=== PATIENT | male | born 1940 | race Caucasian/White ===

== ENCOUNTER 2019-01-11 06:07 | Outpatient (RCR) | payer OTHER, SELFPAY | END 2019-02-09 00:01 | LOC: ONCMED 06:07 | PROVIDERS: Family Provider Nurse Practitioner; Visit Provider Internal Medicine Medical Oncology | DX: C7A.8 Other malignant neuroendocrine tumors (principal); E16.4 Increased secretion of gastrin; E53.8 Deficiency of other specified B group vitamins; E66.9 Obesity, unspecified; E11.22 Type 2 diabetes mellitus with diabetic chronic kidney disease; I12.9 Hypertensive chronic kidney disease with stage 1 through stage 4 chronic kidney disease, or unspecified chronic kidney disease; N18.9 Chronic kidney disease, unspecified; E78.5 Hyperlipidemia, unspecified; I25.10 Atherosclerotic heart disease of native coronary artery without angina pectoris; K21.9 Gastro-esophageal reflux disease without esophagitis; M19.90 Unspecified osteoarthritis, unspecified site; D50.9 Iron deficiency anemia, unspecified; Z85.46 Personal history of malignant neoplasm of prostate; Z90.79 Acquired absence of other genital organ(s); Z79.4 Long term (current) use of insulin | CPT/HCPCS: 96372; 99214; J2353 ==

== ENCOUNTER 2019-02-11 06:25 | Outpatient (RCR) | payer OTHER, SELFPAY ==
[2019-02-11] MEDS: octreotide LAR depot 20 mg Kit 40 MG IM (14:30)
[2019-02-11 15:05] LABS: Anion Gap 16.5 (5-19); Blood Urea Nitrogen 39 mg/dL (8-23); Calcium 9.2 mg/Dl (8.8-10.2); Carbon Dioxide 25 mmol/L (22-29); Chloride 101 mmol/L (98-107); Glucose 168 mg/dL (74-106); Potassium 4.5 mmol/L (3.5-5.1); Sodium 138 mmol/L (136-145)
[2019-02-11 15:52] LABS: Urine Creatinine 62 mg/dL (39-259)
[2019-02-11 16:11] LABS: Microalbumin Random Urine 112 ug/dL (0-20)
[2019-02-11 23:22] LABS: Microalbum Creatinine Ratio Ur 2 mg/dL (0-20)
== END 2019-03-12 23:59 | disposition home or self-care (01) ==
LOC: ONCMED 06:25
PROVIDERS: Nurse Practitioner Family; Family Provider Nurse Practitioner; PCP Nurse Practitioner; Visit Provider Internal Medicine Medical Oncology
DX: C7A.8 Other malignant neuroendocrine tumors (principal)
CPT/HCPCS: 80048; 82044; 96372; J2353

== ENCOUNTER 2019-03-12 15:15 | Inpatient (IN) | payer OTHER, SELFPAY ==
[2019-03-12 15:17] VITALS: BP 178/105; PULSE 80; RESP 22; TEMP 36.7; O2SAT 97
--- NOTE | 2019-03-12 15:28 | ED_ITS ---
Entered by Arin Singer, acting as scribe for Documented by User: Michel Lutz MD 03/12/19 17:50 HPI - Altered Mental Status General: Chief Complaint: Neuro Symptoms/Deficit Stated Complaint: CONFUSION Time Seen by Provider: 03/12/19 15:28 Source: patient and EMS Mode of arrival: EMS Limitations: altered mental status History of Present Illness: HPI narrative: per ems pt called [facility] and stated he could not find his words at 10 am, pt is unaware of exact time. MD complaint: altered mental status and confusion Onset (ago): day(s) (today unsure time) Severity: mild Consistency of symptoms: Unknown Context: unknown Associated symptoms: Reports no associated symptoms Review of Systems General: Reports: ROS unobtainable due to mental status Const: Denies: fever GI: Denies: nausea, vomiting or diarrhea Neuro: Reports: confusion PFSH ED PFSH: Statuses (acute, chronic, etc) shown below reflect problem list status as previously entered and may not be historically accurate Social History Smoking and tobacco status: never smoked Caregiver/support person: Yes (Daughter) Household members: caregiver Housing: House Marital status: Single Physical Exam Const: COMMON NORMALS: no apparent distress; negative for oriented x3 EXAM LIMITATIONS: altered mental status HENMT: COMMON NORMALS: normocephalic and head/scalp atraumatic HEAD & SCALP: normocephalic and atraumatic Eye: COMMON NORMALS: PERRL and EOMs intact bilaterally PUPIL: Yes PERRL Lymph: LYMPHATIC: no lymphadenopathy noted Chest: COMMONS NORMALS: inspection of chest normal and palpation of chest normal Resp: COMMON NORMALS: normal respiratory effort, no retractions, no use of accessory muscles and clear to auscultation bilaterally AUSCULTATION: clear to auscultation bilaterally Cardio: COMMON NORMALS: regular rate, regular rhythm and no murmurs RATE: regular rate RHYTHM: regular rhythm GI: COMMON NORMALS: normal to inspection, nondistended, normoactive bowel sounds, soft to palpation, non-tender and no hepatosplenomegaly PALPATION: Yes soft and Yes no hepatosplenomegaly Extremity: COMMON NORMALS: normal to inspection and normal capillary refill Neuro: COMMON NORMALS: negative for oriented x3 OTHER: Patient knows his name but is confused to place and time patient is quite confused. Unable to answer any questions. Course Vital Signs: Vital signs: Vital Signs Temperature 97.9 F 03/13/19 00:54 Pulse Rate 88 03/13/19 00:54 Respiratory Rate 19 H 03/13/19 00:54 Blood Pressure 148/84 03/13/19 00:54 Pulse Oximetry 94 03/13/19 00:54 MDM - Altered Mental Status MDM Narrative: Medical decision making narrative: Patient presents with altered neural status and is quite confused. Patient is pending a urinary analysis along with 3 her troponin. Patient's care turned over to Dr. Bailey at this time. Lab Data: Labs: Lab Results 03/12/19 03/12/19 03/12/19 Range/Units 15:52 16:05 16:05 WBC 7.3 (4.0-10.0) 10^3/ uL RBC 3.42 L (4.1-5.3) 10^6/u L Hgb 10.1 L (11.7-16.6) g/dL Hct 32.6 L (42.0-52.0) % MCV 95.3 H (80-94) fL MCH 29.5 (28.0-34.0) pg MCHC 31.0 (30.0-36.0) g/dL RDW 12.2 (12.1-15.1) % Plt Count 229 (130-400) 10^3/c mm MPV 11.1 H (7.4-10.4) fL Neut % (Auto) 76.7 % Lymph % (Auto) 14.6 % [place] % (Auto) 5.0 % Eos % (Auto) 2.7 % Baso % (Auto) 0.7 % Neut # (Auto) 5.6 (1.8-7.7) 10^3/u L Lymph # (Auto) 1.1 (0.8-4.8) 10^3/u L [place] # (Auto) 0.4 (0.2-0.9) 10^3/u L Eos # (Auto) 0.2 (0.0-0.8) 10^3/u L Baso # (Auto) 0.1 (0.0-0.1) 10^3/u L Nucleated RBC % (a uto) 0 % Nucleated RBCs # 0.0 /100WBC PT 14.10 H (10.5-13.3) SECO NDS INR 1.05 (0.8-1.2) Specimen Type Arterial Sample Site Radial, left ABG pH 7.38 (7.35-7.45) ABG pCO2 43.8 (35-45) mmHg ABG pO2 76.9 L (80.0-100.0) mmH g ABG HCO3 25.8 (22-26) mmol/L ABG Base Excess 0.4 (-2.0-2.0) mmol/ L Vijay Test Pos Hematocrit 31.8 L (42-52) % O2 Delivery Device Nc FiO2 28.0 % Client Finance Analyst ID amh Sodium (136-145) mmol/L Potassium (3.5-5.1) mmol/L Chloride (98-107) mmol/L Carbon Dioxide (22-29) mmol/L Anion Gap (5-19) BUN (8-23) mg/dL Creatinine (0.7-1.2) mg/dL Glucose (74-106) mg/dL Estimat Average Gl ucose Hemoglobin A1c (4.0-6.0) % Calcium (8.5-10.5) mg/dL Magnesium (1.7-2.3) mg/dL Total Bilirubin (0.15-1.2) mg/dL AST (0-40) U/L ALT (0-41) U/L Alkaline Phosphata se (40-130) IU/L Ammonia (16-60) umol/L Troponin T Baselin e (0-15) ng/mL Troponin T 120 Min [place] (0-15) ng/mL Delta Troponin T (0-10) ABS# Total Protein (6.6-8.7) g/dL Albumin (3.5-5.2) g/dL Globulin (1.3-4.6) g/dL TSH (0.27-4.20) uIU/ mL Urine Color (Yellow) Urine Appearance (CLEAR) Urine pH (5-7) Ur Specific Gravit y (1.005-1.030) Urine Protein (Negative) Urine Glucose (UA) (Normal) Urine Ketones (Negative) Urine Occult Blood (Negative) Urine Nitrate (Negative) Urine Bilirubin (NEGATIVE) Urine Urobilinogen (Negative) mg/dL Ur Leukocyte Sarah ase (Negative) Urine RBC (0-2) /hpf Urine WBC (0-5) /hpf Ur Squamous Epith Cells (0-5) Urine Bacteria (NONE) Urine Mucus Ethyl Alcohol (0-10) mg/dL 03/12/19 03/12/19 03/12/19 Range/Units 16:05 16:05 16:05 WBC (4.0-10.0) 10^3/ uL RBC (4.1-5.3) 10^6/u L Hgb (11.7-16.6) g/dL Hct (42.0-52.0) % MCV (80-94) fL MCH (28.0-34.0) pg MCHC (30.0-36.0) g/dL RDW (12.1-15.1) % Plt Count (130-400) 10^3/c mm MPV (7.4-10.4) fL Neut % (Auto) % Lymph % (Auto) % [place] % (Auto) % Eos % (Auto) % Baso % (Auto) % Neut # (Auto) (1.8-7.7) 10^3/u L Lymph # (Auto) (0.8-4.8) 10^3/u L [place] # (Auto) (0.2-0.9) 10^3/u L Eos # (Auto) (0.0-0.8) 10^3/u L Baso # (Auto) (0.0-0.1) 10^3/u L Nucleated RBC % (a uto) % Nucleated RBCs # /100WBC PT (10.5-13.3) SECO NDS INR (0.8-1.2) Specimen Type Sample Site ABG pH (7.35-7.45) ABG pCO2 (35-45) mmHg ABG pO2 (80.0-100.0) mmH g ABG HCO3 (22-26) mmol/L ABG Base Excess (-2.0-2.0) mmol/ L Vijay Test Hematocrit (42-52) % O2 Delivery Device FiO2 % Client Finance Analyst ID Sodium 134 L (136-145) mmol/L Potassium 4.7 (3.5-5.1) mmol/L Chloride 97 L (98-107) mmol/L Carbon Dioxide 24 (22-29) mmol/L Anion Gap 17.7 (5-19) BUN 33 H (8-23) mg/dL Creatinine 2.5 H (0.7-1.2) mg/dL Glucose 334 H (74-106) mg/dL Estimat Average Gl ucose Hemoglobin A1c (4.0-6.0) % Calcium 9.2 (8.5-10.5) mg/dL Magnesium 1.9 (1.7-2.3) mg/dL Total Bilirubin 0.2 (0.15-1.2) mg/dL AST 13 (0-40) U/L ALT 8 (0-41) U/L Alkaline Phosphata se 83 (40-130) IU/L Ammonia 15 L (16-60) umol/L Troponin T Baselin e 46 H (0-15) ng/mL Troponin T 120 Min [place] (0-15) ng/mL Delta Troponin T (0-10) ABS# Total Protein 7.4 (6.6-8.7) g/dL Albumin 3.7 (3.5-5.2) g/dL Globulin 3.7 (1.3-4.6) g/dL TSH (0.27-4.20) uIU/ mL Urine Color (Yellow) Urine Appearance (CLEAR) Urine pH (5-7) Ur Specific Gravit y (1.005-1.030) Urine Protein (Negative) Urine Glucose (UA) (Normal) Urine Ketones (Negative) Urine Occult Blood (Negative) Urine Nitrate (Negative) Urine Bilirubin (NEGATIVE) Urine Urobilinogen (Negative) mg/dL Ur Leukocyte Sarah ase (Negative) Urine RBC (0-2) /hpf Urine WBC (0-5) /hpf Ur Squamous Epith Cells (0-5) Urine Bacteria (NONE) Urine Mucus Ethyl Alcohol < 10 (0-10) mg/dL 03/12/19 03/12/19 03/12/19 Range/Units 16:05 18:07 18:07 WBC (4.0-10.0) 10^3/ uL RBC (4.1-5.3) 10^6/u L Hgb (11.7-16.6) g/dL Hct (42.0-52.0) % MCV (80-94) fL MCH (28.0-34.0) pg MCHC (30.0-36.0) g/dL RDW (12.1-15.1) % Plt Count (130-400) 10^3/c mm MPV (7.4-10.4) fL Neut % (Auto) % Lymph % (Auto) % [place] % (Auto) % Eos % (Auto) % Baso % (Auto) % Neut # (Auto) (1.8-7.7) 10^3/u L Lymph # (Auto) (0.8-4.8) 10^3/u L [place] # (Auto) (0.2-0.9) 10^3/u L Eos # (Auto) (0.0-0.8) 10^3/u L Baso # (Auto) (0.0-0.1) 10^3/u L Nucleated RBC % (a uto) % Nucleated RBCs # /100WBC PT (10.5-13.3) SECO NDS INR (0.8-1.2) Specimen Type Sample Site ABG pH (7.35-7.45) ABG pCO2 (35-45) mmHg ABG pO2 (80.0-100.0) mmH g ABG HCO3 (22-26) mmol/L ABG Base Excess (-2.0-2.0) mmol/ L Vijay Test Hematocrit (42-52) % O2 Delivery Device FiO2 % Client Finance Analyst ID Sodium (136-145) mmol/L Potassium (3.5-5.1) mmol/L Chloride (98-107) mmol/L Carbon Dioxide (22-29) mmol/L Anion Gap (5-19) BUN (8-23) mg/dL Creatinine (0.7-1.2) mg/dL Glucose (74-106) mg/dL Estimat Average Gl ucose 217 Hemoglobin A1c 9.2 H (4.0-6.0) % Calcium (8.5-10.5) mg/dL Magnesium (1.7-2.3) mg/dL Total Bilirubin (0.15-1.2) mg/dL AST (0-40) U/L ALT (0-41) U/L Alkaline Phosphata se (40-130) IU/L Ammonia (16-60) umol/L Troponin T Baselin e (0-15) ng/mL Troponin T 120 [address] [place] 39.60 H (0-15) ng/mL Delta Troponin T -6.40 L (0-10) ABS# Total Protein (6.6-8.7) g/dL Albumin (3.5-5.2) g/dL Globulin (1.3-4.6) g/dL TSH 2.15 (0.27-4.20) uIU/ mL Urine Color (Yellow) Urine Appearance (CLEAR) Urine pH (5-7) Ur Specific Gravit y (1.005-1.030) Urine Protein (Negative) Urine Glucose (UA) (Normal) Urine Ketones (Negative) Urine Occult Blood (Negative) Urine Nitrate (Negative) Urine Bilirubin (NEGATIVE) Urine Urobilinogen (Negative) mg/dL Ur Leukocyte Sarah ase (Negative) Urine RBC (0-2) /hpf Urine WBC (0-5) /hpf Ur Squamous Epith Cells (0-5) Urine Bacteria (NONE) Urine Mucus Ethyl Alcohol (0-10) mg/dL 03/12/19 Range/Units 18:57 WBC (4.0-10.0) 10^3/ uL RBC (4.1-5.3) 10^6/u L Hgb (11.7-16.6) g/dL Hct (42.0-52.0) % MCV (80-94) fL MCH (28.0-34.0) pg MCHC (30.0-36.0) g/dL RDW (12.1-15.1) % Plt Count (130-400) 10^3/c mm MPV (7.4-10.4) fL Neut % (Auto) % Lymph % (Auto) % [place] % (Auto) % Eos % (Auto) % Baso % (Auto) % Neut # (Auto) (1.8-7.7) 10^3/u L Lymph # (Auto) (0.8-4.8) 10^3/u L [place] # (Auto) (0.2-0.9) 10^3/u L Eos # (Auto) (0.0-0.8) 10^3/u L Baso # (Auto) (0.0-0.1) 10^3/u L Nucleated RBC % (a uto) % Nucleated RBCs # /100WBC PT (10.5-13.3) SECO NDS INR (0.8-1.2) Specimen Type Sample Site ABG pH (7.35-7.45) ABG pCO2 (35-45) mmHg ABG pO2 (80.0-100.0) mmH g ABG HCO3 (22-26) mmol/L ABG Base Excess (-2.0-2.0) mmol/ L Vijay Test Hematocrit (42-52) % O2 Delivery Device FiO2 % Client Finance Analyst ID Sodium (136-145) mmol/L Potassium (3.5-5.1) mmol/L Chloride (98-107) mmol/L Carbon Dioxide (22-29) mmol/L Anion Gap (5-19) BUN (8-23) mg/dL Creatinine (0.7-1.2) mg/dL Glucose (74-106) mg/dL Estimat Average Gl ucose Hemoglobin A1c (4.0-6.0) % Calcium (8.5-10.5) mg/dL Magnesium (1.7-2.3) mg/dL Total Bilirubin (0.15-1.2) mg/dL AST (0-40) U/L ALT (0-41) U/L Alkaline Phosphata se (40-130) IU/L Ammonia (16-60) umol/L Troponin T Baselin e (0-15) ng/mL Troponin T 120 [address] [place] (0-15) ng/mL Delta Troponin T (0-10) ABS# Total Protein (6.6-8.7) g/dL Albumin (3.5-5.2) g/dL Globulin (1.3-4.6) g/dL TSH (0.27-4.20) uIU/ mL Urine Color Yellow (Yellow) Urine Appearance Clear (CLEAR) Urine pH 6 (5-7) Ur Specific Gravit y 1.015 (1.005-1.030) Urine Protein 3+ H (Negative) Urine Glucose (UA) 4+ H (Normal) Urine Ketones Negative (Negative) Urine Occult Blood 2+ H (Negative) Urine Nitrate Negative (Negative) Urine Bilirubin Neg (NEGATIVE) Urine Urobilinogen Norm (Negative) mg/dL Ur Leukocyte Sarah ase Negative (Negative) Urine RBC 0-4 H (0-2) /hpf Urine WBC 0-4 H (0-5) /hpf Ur Squamous Epith Cells Rare (0-5) Urine Bacteria Trace (NONE) Urine Mucus Trace Ethyl Alcohol (0-10) mg/dL Imaging Data^: CXR: Radiologist's impression: Patient: Marco Antonio Valadez Unit #: [id number] : 1940 Age/Sex: 79 / M ADM Date: 03/12/19 Loc: ER Room/Bed: Attending Dr: Ordering Provider/Ordering MD: Michel Lutz MD Date of Service: 03/12/19 Procedure(s): XR chest 1V portable [id number] Accession Number(s): [id number] Report Number: [id number] WS: [id number] Portable AP upright chest, 03/12/2019 Clinical Data: cough Comparison: Portable chest, 11/30/2018. Findings: No nodules, masses or effusions are seen. The heart is enlarged. The pulmonary vascularity is not increased. No pneumonia or pneumothorax is seen. Bibasilar linear atelectasis is seen. The aortic arch and descending aorta show calcification of tortuosity. There is a dextroscoliosis. XR/XR chest 1V portable [id number] Impression: Atherosclerosis and cardiomegaly EKG Data^: EKG 1: Attestation: I personally reviewed and interpreted this EKG as follows: EKG interpretation date: 03/12/19 EKG interpretation time: 15:46 Interpretation: Normal sinus rhythm heart rate [address] or T wave abnormalities QRS 119 QTc 424 EKG 2: Attestation: I personally reviewed and interpreted this EKG as follows: EKG interpretation date: 03/12/19 EKG interpretation time: 17:03 Interpretation: nsr hr [address] or t wave abnormalities qrs 120 qtc 419 Discharge Plan Discharge Patient Disposition: Admitted As Inpatient Admit Provider: Mehnaz Morton Clinical Impression: Altered mental status Qualifiers: Altered mental status type: unspecified Qualified Code(s): R41.82 - Altered mental status, unspecified Condition: Stable Referrals: Leslie Villalta FNP [Primary Care Provider] - Discharge Date/Time: 03/13/19 00:40 Coding Level of Care Code ED Seam Rubber for Chg Fwd Exam Problem Focused Documented by User: Jung Bailey DO 03/13/19 02:09 HPI - Altered Mental Status General: Chief Complaint: Neuro Symptoms/Deficit Stated Complaint: CONFUSION Time Seen by Provider: 03/12/19 15:28 PFSH ED PFSH: Statuses (acute, chronic, etc) shown below reflect problem list status as previously entered and may not be historically accurate Social History Smoking and tobacco status: never smoked Caregiver/support person: Yes (Daughter) Household members: caregiver Housing: House Marital status: Single Course ED course: 79-year-old male checked out to me by Dr. Lutz. He presents with acute mental status changes. Evidently he was slurring his speech at home, and dropping things. The symptoms are mostly resolved at this point, although he still significantly confused. He does answer simple questions accurately. His serum work-up is essentially benign. His head CT is negative. His urinalysis is negative. I wonder if he had a hypoxic episode at home that led to his confusion and slurring of his words. He supposed to wear oxygen, but has not had access to it recently. He will be observed for mental status change for further work-up. I spoke with his daughter. Vital Signs: Vital signs: Vital Signs Temperature 97.9 F 03/13/19 00:54 Pulse Rate 88 03/13/19 00:54 Respiratory Rate 19 H 03/13/19 00:54 Blood Pressure 148/84 03/13/19 00:54 Pulse Oximetry 94 03/13/19 00:54 MDM - Altered Mental Status Lab Data: Labs: Lab Results 03/12/19 03/12/19 03/12/19 Range/Units 15:52 16:05 16:05 WBC 7.3 (4.0-10.0) 10^3/ uL RBC 3.42 L (4.1-5.3) 10^6/u L Hgb 10.1 L (11.7-16.6) g/dL Hct 32.6 L (42.0-52.0) % MCV 95.3 H (80-94) fL MCH 29.5 (28.0-34.0) pg MCHC 31.0 (30.0-36.0) g/dL RDW 12.2 (12.1-15.1) % Plt Count 229 (130-400) 10^3/c mm MPV 11.1 H (7.4-10.4) fL Neut % (Auto) 76.7 % Lymph % (Auto) 14.6 % [place] % (Auto) 5.0 % Eos % (Auto) 2.7 % Baso % (Auto) 0.7 % Neut # (Auto) 5.6 (1.8-7.7) 10^3/u L Lymph # (Auto) 1.1 (0.8-4.8) 10^3/u L [place] # (Auto) 0.4 (0.2-0.9) 10^3/u L Eos # (Auto) 0.2 (0.0-0.8) 10^3/u L Baso # (Auto) 0.1 (0.0-0.1) 10^3/u L Nucleated RBC % (a uto) 0 % Nucleated RBCs # 0.0 /100WBC PT 14.10 H (10.5-13.3) SECO NDS INR 1.05 (0.8-1.2) Specimen Type Arterial Sample Site Radial, left ABG pH 7.38 (7.35-7.45) ABG pCO2 43.8 (35-45) mmHg ABG pO2 76.9 L (80.0-100.0) mmH g ABG HCO3 25.8 (22-26) mmol/L ABG Base Excess 0.4 (-2.0-2.0) mmol/ L Vijay Test Pos Hematocrit 31.8 L (42-52) % O2 Delivery Device Nc FiO2 28.0 % Client Finance Analyst ID amh Sodium (136-145) mmol/L Potassium (3.5-5.1) mmol/L Chloride (98-107) mmol/L Carbon Dioxide (22-29) mmol/L Anion Gap (5-19) BUN (8-23) mg/dL Creatinine (0.7-1.2) mg/dL Glucose (74-106) mg/dL Estimat Average Gl ucose Hemoglobin A1c (4.0-6.0) % Calcium (8.5-10.5) mg/dL Magnesium (1.7-2.3) mg/dL Total Bilirubin (0.15-1.2) mg/dL AST (0-40) U/L ALT (0-41) U/L Alkaline Phosphata se (40-130) IU/L Ammonia (16-60) umol/L Troponin T Baselin e (0-15) ng/mL Troponin T 120 [address] [place] (0-15) ng/mL Delta Troponin T (0-10) ABS# Total Protein (6.6-8.7) g/dL Albumin (3.5-5.2) g/dL Globulin (1.3-4.6) g/dL TSH (0.27-4.20) uIU/ mL Urine Color (Yellow) Urine Appearance (CLEAR) Urine pH (5-7) Ur Specific Gravit y (1.005-1.030) Urine Protein (Negative) Urine Glucose (UA) (Normal) Urine Ketones (Negative) Urine Occult Blood (Negative) Urine Nitrate (Negative) Urine Bilirubin (NEGATIVE) Urine Urobilinogen (Negative) mg/dL Ur Leukocyte Sarah ase (Negative) Urine RBC (0-2) /hpf Urine WBC (0-5) /hpf Ur Squamous Epith Cells (0-5) Urine Bacteria (NONE) Urine Mucus Ethyl Alcohol (0-10) mg/dL 03/12/19 03/12/19 03/12/19 Range/Units 16:05 16:05 16:05 WBC (4.0-10.0) 10^3/ uL RBC (4.1-5.3) 10^6/u L Hgb (11.7-16.6) g/dL Hct (42.0-52.0) % MCV (80-94) fL MCH (28.0-34.0) pg MCHC (30.0-36.0) g/dL RDW (12.1-15.1) % Plt Count (130-400) 10^3/c mm MPV (7.4-10.4) fL Neut % (Auto) % Lymph % (Auto) % [place] % (Auto) % Eos % (Auto) % Baso % (Auto) % Neut # (Auto) (1.8-7.7) 10^3/u L Lymph # (Auto) (0.8-4.8) 10^3/u L [place] # (Auto) (0.2-0.9) 10^3/u L Eos # (Auto) (0.0-0.8) 10^3/u L Baso # (Auto) (0.0-0.1) 10^3/u L Nucleated RBC % (a uto) % Nucleated RBCs # /100WBC PT (10.5-13.3) SECO NDS INR (0.8-1.2) Specimen Type Sample Site ABG pH (7.35-7.45) ABG pCO2 (35-45) mmHg ABG pO2 (80.0-100.0) mmH g ABG HCO3 (22-26) mmol/L ABG Base Excess (-2.0-2.0) mmol/ L Vijay Test Hematocrit (42-52) % O2 Delivery Device FiO2 % Client Finance Analyst ID Sodium 134 L (136-145) mmol/L Potassium 4.7 (3.5-5.1) mmol/L Chloride 97 L (98-107) mmol/L Carbon Dioxide 24 (22-29) mmol/L Anion Gap 17.7 (5-19) BUN 33 H (8-23) mg/dL Creatinine 2.5 H (0.7-1.2) mg/dL Glucose 334 H (74-106) mg/dL Estimat Average Gl ucose Hemoglobin A1c (4.0-6.0) % Calcium 9.2 (8.5-10.5) mg/dL Magnesium 1.9 (1.7-2.3) mg/dL Total Bilirubin 0.2 (0.15-1.2) mg/dL AST 13 (0-40) U/L ALT 8 (0-41) U/L Alkaline Phosphata se 83 (40-130) IU/L Ammonia 15 L (16-60) umol/L Troponin T Baselin e 46 H (0-15) ng/mL Troponin T 120 Min [place] (0-15) ng/mL Delta Troponin T (0-10) ABS# Total Protein 7.4 (6.6-8.7) g/dL Albumin 3.7 (3.5-5.2) g/dL Globulin 3.7 (1.3-4.6) g/dL TSH (0.27-4.20) uIU/ mL Urine Color (Yellow) Urine Appearance (CLEAR) Urine pH (5-7) Ur Specific Gravit y (1.005-1.030) Urine Protein (Negative) Urine Glucose (UA) (Normal) Urine Ketones (Negative) Urine Occult Blood (Negative) Urine Nitrate (Negative) Urine Bilirubin (NEGATIVE) Urine Urobilinogen (Negative) mg/dL Ur Leukocyte Sarah ase (Negative) Urine RBC (0-2) /hpf Urine WBC (0-5) /hpf Ur Squamous Epith Cells (0-5) Urine Bacteria (NONE) Urine Mucus Ethyl Alcohol < 10 (0-10) mg/dL 03/12/19 03/12/19 03/12/19 Range/Units 16:05 18:07 18:07 WBC (4.0-10.0) 10^3/ uL RBC (4.1-5.3) 10^6/u L Hgb (11.7-16.6) g/dL Hct (42.0-52.0) % MCV (80-94) fL MCH (28.0-34.0) pg MCHC (30.0-36.0) g/dL RDW (12.1-15.1) % Plt Count (130-400) 10^3/c mm MPV (7.4-10.4) fL Neut % (Auto) % Lymph % (Auto) % [place] % (Auto) % Eos % (Auto) % Baso % (Auto) % Neut # (Auto) (1.8-7.7) 10^3/u L Lymph # (Auto) (0.8-4.8) 10^3/u L [place] # (Auto) (0.2-0.9) 10^3/u L Eos # (Auto) (0.0-0.8) 10^3/u L Baso # (Auto) (0.0-0.1) 10^3/u L Nucleated RBC % (a uto) % Nucleated RBCs # /100WBC PT (10.5-13.3) SECO NDS INR (0.8-1.2) Specimen Type Sample Site ABG pH (7.35-7.45) ABG pCO2 (35-45) mmHg ABG pO2 (80.0-100.0) mmH g ABG HCO3 (22-26) mmol/L ABG Base Excess (-2.0-2.0) mmol/ L Vijay Test Hematocrit (42-52) % O2 Delivery Device FiO2 % Client Finance Analyst ID Sodium (136-145) mmol/L Potassium (3.5-5.1) mmol/L Chloride (98-107) mmol/L Carbon Dioxide (22-29) mmol/L Anion Gap (5-19) BUN (8-23) mg/dL Creatinine (0.7-1.2) mg/dL Glucose (74-106) mg/dL Estimat Average Gl ucose 217 Hemoglobin A1c 9.2 H (4.0-6.0) % Calcium (8.5-10.5) mg/dL Magnesium (1.7-2.3) mg/dL Total Bilirubin (0.15-1.2) mg/dL AST (0-40) U/L ALT (0-41) U/L Alkaline Phosphata se (40-130) IU/L Ammonia (16-60) umol/L Troponin T Baselin e (0-15) ng/mL Troponin T 120 [address] [place] 39.60 H (0-15) ng/mL Delta Troponin T -6.40 L (0-10) ABS# Total Protein (6.6-8.7) g/dL Albumin (3.5-5.2) g/dL Globulin (1.3-4.6) g/dL TSH 2.15 (0.27-4.20) uIU/ mL Urine Color (Yellow) Urine Appearance (CLEAR) Urine pH (5-7) Ur Specific Gravit y (1.005-1.030) Urine Protein (Negative) Urine Glucose (UA) (Normal) Urine Ketones (Negative) Urine Occult Blood (Negative) Urine Nitrate (Negative) Urine Bilirubin (NEGATIVE) Urine Urobilinogen (Negative) mg/dL Ur Leukocyte Sarah ase (Negative) Urine RBC (0-2) /hpf Urine WBC (0-5) /hpf Ur Squamous Epith Cells (0-5) Urine Bacteria (NONE) Urine Mucus Ethyl Alcohol (0-10) mg/dL 03/12/19 Range/Units 18:57 WBC (4.0-10.0) 10^3/ uL RBC (4.1-5.3) 10^6/u L Hgb (11.7-16.6) g/dL Hct (42.0-52.0) % MCV (80-94) fL MCH (28.0-34.0) pg MCHC (30.0-36.0) g/dL RDW (12.1-15.1) % Plt Count (130-400) 10^3/c mm MPV (7.4-10.4) fL Neut % (Auto) % Lymph % (Auto) % [place] % (Auto) % Eos % (Auto) % Baso % (Auto) % Neut # (Auto) (1.8-7.7) 10^3/u L Lymph # (Auto) (0.8-4.8) 10^3/u L [place] # (Auto) (0.2-0.9) 10^3/u L Eos # (Auto) (0.0-0.8) 10^3/u L Baso # (Auto) (0.0-0.1) 10^3/u L Nucleated RBC % (a uto) % Nucleated RBCs # /100WBC PT (10.5-13.3) SECO NDS INR (0.8-1.2) Specimen Type Sample Site ABG pH (7.35-7.45) ABG pCO2 (35-45) mmHg ABG pO2 (80.0-100.0) mmH g ABG HCO3 (22-26) mmol/L ABG Base Excess (-2.0-2.0) mmol/ L Vijay Test Hematocrit (42-52) % O2 Delivery Device FiO2 % Client Finance Analyst ID Sodium (136-145) mmol/L Potassium (3.5-5.1) mmol/L Chloride (98-107) mmol/L Carbon Dioxide (22-29) mmol/L Anion Gap (5-19) BUN (8-23) mg/dL Creatinine (0.7-1.2) mg/dL Glucose (74-106) mg/dL Estimat Average Gl ucose Hemoglobin A1c (4.0-6.0) % Calcium (8.5-10.5) mg/dL Magnesium (1.7-2.3) mg/dL Total Bilirubin (0.15-1.2) mg/dL AST (0-40) U/L ALT (0-41) U/L Alkaline Phosphata se (40-130) IU/L Ammonia (16-60) umol/L Troponin T Baselin e (0-15) ng/mL Troponin T 120 Min [place] (0-15) ng/mL Delta Troponin T (0-10) ABS# Total Protein (6.6-8.7) g/dL Albumin (3.5-5.2) g/dL Globulin (1.3-4.6) g/dL TSH (0.27-4.20) uIU/ mL Urine Color Yellow (Yellow) Urine Appearance Clear (CLEAR) Urine pH 6 (5-7) Ur Specific Gravit y 1.015 (1.005-1.030) Urine Protein 3+ H (Negative) Urine Glucose (UA) 4+ H (Normal) Urine Ketones Negative (Negative) Urine Occult Blood 2+ H (Negative) Urine Nitrate Negative (Negative) Urine Bilirubin Neg (NEGATIVE) Urine Urobilinogen Norm (Negative) mg/dL Ur Leukocyte Sarah ase Negative (Negative) Urine RBC 0-4 H (0-2) /hpf Urine WBC 0-4 H (0-5) /hpf Ur Squamous Epith Cells Rare (0-5) Urine Bacteria Trace (NONE) Urine Mucus Trace Ethyl Alcohol (0-10) mg/dL Discharge Plan Discharge Patient Disposition: Admitted As Inpatient Admit Provider: Mehnaz Morton Clinical Impression: Altered mental status Qualifiers: Altered mental status type: unspecified Qualified Code(s): R41.82 - Altered mental status, unspecified Condition: Stable Referrals: Leslie Villalta FNP [Primary Care Provider] - Discharge Date/Time: 03/13/19 00:40 Coding Level of Care Code ED Seam Rubber for Chg Fwd Exam Problem Focused The documentation recorded by the Enmanuel hayward Bridget Annette, accurately reflects the service I personally performed and the decisions made by , Michel Lutz MD Mar 12, 2019 15:15
--- NOTE | 2019-03-12 15:34 | XR_ITS ---
WS: [id number] Portable AP upright chest, 03/12/2019 Clinical Data: cough Comparison: Portable chest, 11/30/2018. Findings: No nodules, masses or effusions are seen. The heart is enlarged. The pulmonary vascularity is not increased. No pneumonia or pneumothorax is seen. Bibasilar linear atelectasis is seen. The aor tic arch and descending aorta show calcification of tortuosity. There is a dextroscoliosis. XR/XR chest 1V portable [id number] Impression: Atherosclerosis and cardiomegaly
--- NOTE | 2019-03-12 15:34 | CT_ITS ---
WS: [id number] CT HEAD TECHNIQUE: Noncontrast CT of the head obtained from the skullbase to the vertex. CLINICAL INFORMATION: ams COMPARISON: None. DLP: 1354.[address] scans at [facility] use at least one of these dose optimization techniques: automat ed exposure control; mA and/or kV adjustment per patient size (includes targeted exams where dose is matched to clinical indication); or iterative reconstruction. FINDINGS: Images are degraded due to motion. No evidence of intracranial hemorrhage or mass effect. Ventricular system and basal cisterns are rincon nt. Moderate small vessel changes with moderate parenchymal volume loss. Chronic lacunar infarcts in the right caudate and bilateral basal ganglia. Incidental megacisterna magna. Polypoid mucosal thickening in the paranasal sinuses. Notified Michel Lutz MD at 03/12/2019 5:[address]/CT head wo con* [id number] IMPRESSION: 1. No evidence of intracranial hemorrhage or mass effect. 2. Moderate small vessel changes with moderate parenchymal volume loss. 3. Chronic lacunar infarcts in the basal ganglia and right caudate. 4. No acute intracranial findings.
[2019-03-12 16:04] LABS: ABG PCO2 43.8 mmHg (35-45); ABG PH Result 7.38 (7.35-7.45); Arterial Blood Gas Hematocrit 31.8 % (42-52); Base Excess ABG 0.4 mmol/L (-2.0-2.0); Blood Gas Allen Test Pos; Blood Gas Operator Identificat amh; Blood Gas Sample Site Radial, left; Blood Gas Sample Type Arterial; HCO3 ABG 25.8 mmol/L (22-26); Oxygen Device NC; PO2 ABG 76.9 mmHg (80.0-100.0)
[2019-03-12 16:18] LABS: Basophils # 0.1 10^3/uL (0.0-0.1); Basophils % 0.7 %; Eosinophils # 0.2 10^3/uL (0.0-0.8); Eosinophils % 2.7 %; Hematocrit 32.6 % (42.0-52.0); Hemoglobin 10.1 g/dL (11.7-16.6); Lymphocytes # 1.1 10^3/uL (0.8-4.8); Lymphocytes % 14.6 %; Mean Corpuscular Hemoglobin 29.5 pg (28.0-34.0); Mean Corpuscular Volume 95.3 fL (80-94); Mean Platelet Volume 11.1 fL (7.4-10.4); Monocytes # 0.4 10^3/uL (0.2-0.9); Neutrophils # 5.6 10^3/uL (1.8-7.7); Neutrophils % 76.7 %; Nucleated Red Blood Cells % 0 %; Platelet Count 229 10^3/cmm (130-400); Red Blood Count 3.42 10^6/uL (4.1-5.3); Red Cell Distribution Width 12.2 % (12.1-15.1); White Blood Count 7.3 10^3/uL (4.0-10.0)
[2019-03-12 16:26] LABS: INR 1.05 (0.8-1.2)
[2019-03-12 16:32] LABS: Ammonia 15 umol/L (16-60)
[2019-03-12 16:34] LABS: Alanine Aminotransferase 8 U/L (0-41); Albumin Level 3.7 g/dL (3.5-5.2); Alkaline Phosphatase 83 IU/L (40-130); Anion Gap 17.7 (5-19); Aspartate Amino Transferase 13 U/L (0-40); Blood Urea Nitrogen 33 mg/dL (8-23); Calcium 9.2 mg/dL (8.5-10.5); Carbon Dioxide 24 mmol/L (22-29); Chloride 97 mmol/L (98-107); Globulin 3.7 g/dL (1.3-4.6); Glucose 334 mg/dL (74-106); Magnesium 1.9 mg/dL (1.7-2.3); Potassium 4.7 mmol/L (3.5-5.1); Sodium 134 mmol/L (136-145); Total Bilirubin 0.2 mg/dL (0.15-1.2); Total Protein 7.4 g/dL (6.6-8.7)
[2019-03-12 16:35] LABS: Troponin(5th) Baseline 46 ng/mL (0-15)
[2019-03-12 16:38] LABS: Alcohol Level < 10 mg/dL (0-10)
--- NOTE | 2019-03-12 17:35 | ECG_ITS ---
Measurements Intervals [place] Rate: 63 P: 70 [place]: 178 QRS: -33 QRSD: 120 T: 46 QT: 411 QTc: 423 SINUS RHYTHM LEFT AXIS DEVIATION [QRS AXIS < -30] MODERATE INTRAVENTRICULAR CONDUCTION DELAY [110+ ms QRS DURATION] Compared to ECG 03/12/2019 15:46:02 No significant changes Electronically Signed On 03-13-2019 16:26:15 [email or web address] APPLIQUER by Alla Aguirre M.D. [id number]
[2019-03-12 19:29] LABS: Urine Appearance Clear (CLEAR); Urine Color Yellow (Yellow)
[2019-03-12 19:30] LABS: Add Urine Microscopic? YES; Bilirubin Urine Neg (NEGATIVE); Blood Urine 2+ (Negative); Glucose Urine UA 4+ (Normal); Ketones Urine Negative (Negative); Leukocyte Esterase Urine Negative (Negative); Nitrate Urine Negative (Negative); Protein Urine 3+ (Negative); Specific Gravity, Urine 1.015 (1.005-1.030); Urobilinogen Urine Norm (Negative); pH Urine 6 (5-7)
[2019-03-12 19:41] LABS: Add Urine Culture? No; Bacteria Urine TRACE; Mucus Urine TRACE; RBC Urine 0-4 /hpf (0-2); Squamous Epithelial Cell Urine RARE (0-5); WBC Urine 0-4 /hpf (0-5)
--- NOTE | 2019-03-12 21:14 | PM.HP ---
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 Allen came in after experiencing slurred speech. Patient is stating that at home his daughter tries to help him for some activities otherwise he uses cane for ambulation, takes care of his medications, this morning he noticed his speech was slurred and he was not able to articulate well, at that time his sugar was 97, he was feeling weak, no falls, had no strength to grab a cup in his hand. He decided to come to ER for further evaluation. In ER his NIH was 0, his speech was not slurred, he had good comprehension, code stroke was not called, CT head was negative for any acute abnormalities, his blood work was unremarkable, blood gas normal with normal ammonia level. When I examined the patient his speech was normal he was able to tell me all the details, he is telling me that he had some urinary incontinence from before and it gets bad when he takes Lasix, he is denying any constipation, fever, chills, night sweats, weight loss, he is endorsing cold intolerance, lower extremity swelling which is getting worse, he also has a right great toe lateral ulcer for which he is seeing a bar machine operator production. NIH 0 I requested CTA head and neck but could not get it because of high creatinine. My concern is paraneoplastic syndrome, pancreatic cancer metastases. Patient is stating that he would not like any resuscitative measures in case of cardiac arrest or respiratory failure, he would stay DNR and DNI, he has good insight and he stated that he knows he is 79 years old and would not want any aggressive measures He had declined treatment for his pancreatic cancer as per Dr. Allen's note Review of Systems Const: Reports: body aches, change in appetite, change in weight, fatigue and malaise; Denies: fever, chills or night sweats Eyes: Denies: change in vision ENMT: Denies: throat pain Card: Reports: edema, swelling of feet/ankles, lightheadedness, pre-syncope and shortness of breath on exertion; Denies: chest pain, palpitations or irregular heart rhythm Resp: Reports: shortness of breath; Denies: productive cough, non-productive cough or wheezing GI: Reports: nausea and bloating; Denies: abdominal pain, vomiting, coffee grounds in vomit, heartburn/indigestion or cramping : Reports: nighttime urination and urinary incontinence; Denies: flank pain, difficulty urinating, urinary frequency or urinary dribbling Musc: Reports: neck pain Skin/Breast: Reports: rash, skin swelling, new lesion and nail changes Neuro: Reports: numbness in extremities, changes in sensation, difficulty walking and dizziness; Denies: headache, weakness in extremities, lack of coordination, vertigo, confusion, slurred speech or difficulty communicating thoughts Psych: Denies: anxiety or depression Endo: Reports: cold intolerance; Denies: excessive urination Medications/Allergies Allergies Allergy/AdvReac Type Severity Reaction Status Date / Time No Known Allergies Allergy Verified 03/12/19 15:30 PFSH Acute PFSH: Statuses (acute, chronic, etc) shown below reflect problem list status as previously entered and may not be historically accurate Medical History (Updated 03/12/19 @ 22:04 by Mehnaz Morton MD) Chronic kidney disease, stage II (mild) (Acute) COPD (chronic obstructive pulmonary disease) (Acute) Coronary disease (Acute) Coronary stent patent (Acute) Hypertension (Acute) Insulin dependent diabetes mellitus (Acute) Mild aortic stenosis (Acute) Morbid obesity (Acute) Neuroendocrine tumor (Acute) Non-STEMI (non-ST elevated myocardial infarction) (Acute) Pancreatic tumor (Acute) Prostate cancer (Acute) Renal mass (Acute) Systolic and diastolic CHF, chronic (Acute) Type 2 diabetes mellitus (Acute) Shila-Hernandez syndrome (Acute) Surgical History (Updated 03/12/19 @ 21:17 by Mehnaz Morton MD) H/O prostatectomy (Acute) Family History (Updated 03/12/19 @ 21:17 by Mehnaz Morton MD) Other Hyperlipidemia Hypertension Denies family history of Cancer Social History (Updated 03/12/19 @ 21:17 by Mehnaz Morton MD) Smoking and tobacco status: never smoked Caregiver/support person: Yes (Daughter) Household members: caregiver Housing: House Marital status: Single Supplemental PFSH Information: Dr. Allen's impression: 1. 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 He was found to have a stage IV low-grade neuroendocrine carcinoma involving a large mass at the level of the pancreas with possible involvement in mediastinal and peripancreatic lymph nodes, though the latter was not confirmed by subsequent PET imaging. He was deemed not to be a surgical candidate. 2. His symptoms of abdominal pain, diarrhea, and flushing improved with initiation of Sandostatin in April of 2014. 3. Restaging PET/CT on 11/19/2014 showed single enlarging mass 7.8 cm, SUV 4.8 centered in the head of the pancreas. The options of switching to targeted treatment with everolimus or sunitinib were discussed, but the patient declined. 4. He has since continued monthly Sandostatin LAR injections, and he has remained stable clinically. Follow-up contrast enhanced CT abdomen/pelvis in May 2015 showed no significant change in the pancreatic mass compared to the PET/CT study in November 2014. There was no other evidence of disease progression within the abdomen/pelvis. Vitals/I&O/Wt Last Vital Signs Temp 98.0 F 03/12/19 15:17 Pulse 80 03/12/19 15:17 Resp 22 H 03/12/19 15:17 BP 178/105 03/12/19 15:17 Pulse Ox 97 03/12/19 15:17 Physical Exam Narrative: EXAM NARRATIVE: Morbidly obese male sitting in a chair He got out of bed by himself and sat in a chair Saturating well on room air He has enlarged dry tongue Edentulous Swelling of eyelids No facial asymmetry Wearing glasses, able to comprehend my verbal commands, good strength of upper and lower extremities 3/5, numbness tingling sensory loss in his extremities, has good handgrips bilaterally, his speech is not slurred, he has good recall of events, he has good insight to his medical condition S1, S2, hard to assess JVD, bilateral lower extremity edema 2+ Dorsalis pedis 1+ bilaterally Right great toe lateral pressure ulcer no active drainage No signs of cellulitis Abdomen soft nontender but distended, with obesity positive, bloated positive, bowel sounds present, flank distention, no CVA tenderness Lungs are clear to auscultation, however his respiratory efforts are poor Data : 03/12/19 16:05 03/12/19 16:05 A&P Assessment and plan (1) Slurred speech: Status: Acute Code(s): R47.81 - Slurred speech (2) Cold intolerance: Status: Acute Code(s): R68.89 - Other general symptoms and signs (3) Iron deficiency anemia: Status: Acute Code(s): D50.9 - Iron deficiency anemia, unspecified (4) Acute renal failure superimposed on stage 2 chronic kidney disease: Status: Acute Code(s): N17.9 - Acute kidney failure, unspecified; N18.2 - Chronic kidney disease, stage 2 (mild) (5) Bilateral lower extremity edema: Status: Acute Code(s): R60.0 - Localized edema Additional A&P Information TIA Slurred speech which has resolved by now, NIH 0 CT head negative for any acute pathologies, would not be able to obtain CT head and neck because of high creatinine Considering history of Shila-Hernandez syndrome and anemia I will be reluctant to give him dual antiplatelet therapy for now We will get MRI brain in the morning to rule out paraneoplastic syndrome versus ischemic stroke for his symptoms However at this point I am not sure if his BMI and weight would be an issue to get the imaging Cold intolerance with tongue enlargement Tongue enlargement might be contributing to slurring of speech especially with underlying edentulous state I would get TSH Acute on chronic kidney disease stage II He has of left renal mass there was concern for renal cell cancer however his hemoglobin has been gradually dropping which is consistent with iron deficiency anemia he gets iron injections by Dr. Allen Monitor BMP Patient voided 200 mL which was clear yellow urine without any hematuria I would reduce the dose of gabapentin History of multiple cancers, renal mass, Shila-Hernandez syndrome, stage IV pancreatic neuroendocrine tumor, no bony metastases as of now, however CT scan abdomen of 03/17/2018 showed enlarging pancreatic head mass size 8.5 x 7.6 cm however left renal mass dimensions are stable. He is not a surgical candidate and is getting Sandostatin 30 mg intramuscular every month He is seeing Dr. Allen every 3 months DVT prophylaxis: SCDs Would avoid use of anticoagulation because of ongoing anemia Hyperglycemia with poorly controlled type 2 diabetes: We will keep him on moderate dose sliding scale with home dose of Lantus Poor quality of life due to multiple comorbid conditions, arthritis, lower extremity swelling Will get PT evaluation Patient is DNR/DNI, we had a lengthy discussion regarding goals of care and he does not want to be resuscitated in case of cardiac arrest or respiratory failure, he is okay with BiPAP Attestations Medical Necessity Statement*: Anticipating his stay to cross more than 2 midnights because of multiple comorbid conditions and generalized weakness Time Spent in Patient Care: (>than 50% of time spent in counselling and/or direct pt care on unit). 60 Coding Level of Care Code Acute Onyx Chip Terrazzo Worker for Binag Fwd Diagnoses Slurred speech R47.81 Cold intolerance R68.89 Iron deficiency anemia D50.9 Acute renal failure superimposed on stage 2 chronic kidney disease N17.9; N18.2 Bilateral lower extremity edema R60.0
--- NOTE | 2019-03-12 21:35 | ECG_ITS ---
Measurements Intervals [place] Rate: 63 P: 70 [place]: 175 QRS: -35 QRSD: 119 T: 32 QT: 417 QTc: 428 SINUS RHYTHM LEFT AXIS DEVIATION [QRS AXIS < -30] MODERATE INTRAVENTRICULAR CONDUCTION DELAY [110+ ms QRS DURATION] Compared to ECG 11/30/2018 23:27:19 No significant changes Electronically Signed On 03-12-2019 16:00:17 WAREHOUSE ASSEMBLY WORKER by Gael Crawford M.D. [id number]
[2019-03-12 22:55] LABS: Thyroid Stimulating Hormone 2.15 uIU/mL (0.27-4.20)
[2019-03-12 22:56] LABS: Troponin 5 6HR 40.89 ng/L (0-15)
[2019-03-12 23:03] LABS: Troponin 5 6HR Delta -5.11 ng/L (0-12)
[2019-03-13] VITALS (7 sets, daily range): BP systolic 115–183; BP diastolic 76–92; PULSE 81–89; RESP 16–20; TEMP 36.5–37.3; O2SAT 91–95
[2019-03-13 01:03] LABS: Glucose Point of Care 217 mg/dL (70-110)
[2019-03-13 01:52] LABS: Estmated Average Glucose 217; Hemoglobin A1C 9.2 % (4.0-6.0)
[2019-03-13 01:57] LABS: NT Pro B Type Natriuretic Pept 1465 pg/mL (0-450)
[2019-03-13 04:49] LABS: Basophils % 0.5 %; Eosinophils # 0.1 10^3/uL (0.0-0.8); Eosinophils % 0.8 %; Hemoglobin 9.6 g/dL (11.7-16.6); Lymphocytes # 1.4 10^3/uL (0.8-4.8); Lymphocytes % 17.9 %; Mean Corpuscular Hemoglobin 29.2 pg (28.0-34.0); Mean Corpuscular Volume 91.2 fL (80-94); Mean Platelet Volume 11.7 fL (7.4-10.4); Monocytes # 0.5 10^3/uL (0.2-0.9); Monocytes % 6.9 %; Neutrophils # 5.6 10^3/uL (1.8-7.7); Neutrophils % 73.8 %; Nucleated Red Blood Cells % 0 %; Platelet Count 218 10^3/cmm (130-400); Red Blood Count 3.29 10^6/uL (4.1-5.3); White Blood Count 7.6 10^3/uL (4.0-10.0)
[2019-03-13 05:05] LABS: Anion Gap 17.3 (5-19); Blood Urea Nitrogen 29 mg/dL (8-23); Carbon Dioxide 23 mmol/L (22-29); Chloride 99 mmol/L (98-107); Glucose 275 mg/dL (74-106); Osmolality Calculated 287 mOsm/kg (285-295); Potassium 4.3 mmol/L (3.5-5.1); Sodium 135 mmol/L (136-145)
[2019-03-13 06:37] LABS: Glucose Point of Care 251 mg/dL (70-110)
[2019-03-13 11:11] LABS: Glucose Point of Care 565 mg/dL (70-110)
[2019-03-13] MEDS: insulin glargine 100 units/1 mL 40 UNIT SUBCUT (11:13)
[2019-03-13] MEDS: gabapentin 100 mg Capsule PO (11:14)
[2019-03-13] MEDS: FUROsemide 40 mg Tablet PO (11:15)
[2019-03-13] MEDS: metoprolol tartrate 25 mg Tablet 12.5 MG PO ×2 (11:15→17:18)
[2019-03-13] MEDS: clopidogrel 75 mg Tablet PO (11:15)
[2019-03-13 12:53] LABS: Glucose Point of Care 365 mg/dL (70-110)
--- NOTE | 2019-03-13 15:17 | PC.CHAP ---
Pastoral Care Encounter/Spiritual Assessment Type of Contact [] Declined theater education teacher visit [] Patient/Family/Request visit [] Outpatient visit [] Follow-up visit [] Physician referral [] Code/Alert [] Routine visit [] Staff referral [] Actively dying [] Patient sleeping [] Family support [] [x] Out of room [] Palliative care [] [] Receiving care in room [] Pre-surgical visit [] Trauma [] Long length of stay [] ICU visit [] Other: Relational/Emotional Strength [] Patient feels connected with others/family/visitors/staff [] Distress [] Loneliness/isolation [] Abandonment Spirituality of Patient [] Person of Maribel [] Attends Quaker of their Maribel [] Believes in Prayer [] Reads Bible or Caodaism materials [] There are Spiritual issues to be addressed Gas Meter Repairer Interventions [] Prayer [] Active listening [] Non-anxious presence [] Spiritual/emotional support [] Crisis/trauma care [] Spiritual counseling [] Bereavement support [] Provided bereavement packet [] Provided Bible/devotional materials [] Provided toy/stuffed animal, coloring book to patient or family member [] Provided Communion [] Anointing/[place] [] Salvation [] Completed spiritual assessment [] Other: Impact on Illness or Injury [] Angry [] Fearful [] Anxious [] Often cries [] Exhaustion [] Unable to work [] Unable to attend confucianism [] Unable to walk/stand [] Unable to read [] Unable to drive [] Unable to eat/drink [] Unable to sleep [] Unable to be with family [] Patient intubated [] Other: Summary Time spent with patient
[2019-03-13 16:04] LABS: Glucose Point of Care 173 mg/dL (70-110)
--- NOTE | 2019-03-13 16:25 | P.PN_ITS ---
Subjective Subjective: Interval history: Overnight labs, H&P reviewed. No acute overnight events. No focal deficits. Blood sugar this morning was reported at >500, received 16 units on insulin, currently corrected to 173 at 4pm. Medications: Reviewed: Yes Vitals/I&O/Wt Last Vital Signs Temp 99.1 F 03/13/19 15:06 Pulse 83 03/13/19 15:06 Resp 18 03/13/19 15:06 BP 115/76 03/13/19 15:06 Pulse Ox 94 03/13/19 15:06 03/13/19 03/13/19 03/13/19 06:59 14:59 22:59 Intake Total 930 / 930 360 / 360 Output Total 900 / 900 500 / 1400 Balance 930 / 930 -540 / -540 -500 / -1040 Weight last 48 hrs Weight 149.685 kg Physical Exam Narrative: EXAM NARRATIVE: GEn: awake, alert, oriented, lying in bed comfortbaly HEENT: tongue appears enlarged however per review of his prior notes, this appears to be unchanged. patient himself does not feel this is out of the ordinary CVS: S1s2N RS: clear to auscultation B/L Abd: Soft, NT/ND, BS+ Urinary Catheter Management^: Coude: Cath Placed During This Visit: no Data : 03/13/19 04:10 03/13/19 04:10 A&P Assessment and plan (1) Slurred speech: Status: Acute Code(s): R47.81 - Slurred speech (2) Cold intolerance: Status: Acute Code(s): R68.89 - Other general symptoms and signs (3) Iron deficiency anemia: Status: Acute Code(s): D50.9 - Iron deficiency anemia, unspecified (4) Acute renal failure superimposed on stage 2 chronic kidney disease: Status: Acute Code(s): N17.9 - Acute kidney failure, unspecified; N18.2 - Chronic kidney disease, stage 2 (mild) (5) Bilateral lower extremity edema: Status: Acute Code(s): R60.0 - Localized edema Additional A&P Information TIA Slurred speech which has resolved by now, NIH 0 Suspect edentulous state makes it hard to discern CT head negative for any acute pathologies, would not be able to obtain CT head and neck because of high creatinine Considering history of Shila-Hernandez syndrome and anemia avoiding DAPT MRI ordered to rule out paraneoplastic syndrome versus ischemic stroke for his symptoms, however will be unable to be performed over the weekend. Acute on chronic kidney disease stage II He has of left renal mass there was concern for renal cell cancer however his hemoglobin has been gradually dropping which is consistent with iron deficiency anemia he gets iron injections by Dr. Allen cr currently at 2.4, previous trend mostly between 1.8-2.2 History of multiple cancers, renal mass, Shila-Hernandez syndrome, stage IV pancreatic neuroendocrine tumor He is not a surgical candidate and is getting Sandostatin 30 mg intramuscular every month He is seeing Dr. Allen every 3 months DVT prophylaxis: SCDs Would avoid use of anticoagulation because of ongoing anemia Hyperglycemia with poorly controlled type 2 diabetes: We will keep him on moderate dose sliding scale with home dose of Lantus. This am level was at 565, better contolled now Poor quality of life due to multiple comorbid conditions, arthritis, lower extremity swelling Will get PT evaluation Patient is DNR/DNI Attestations Medical Necessity Statement*: neuro observation after TIA, hyperglycemia management Coding Level of Care Code Acute Street Vendor for Chg Fwd Diagnoses Slurred speech R47.81 Cold intolerance R68.89 Iron deficiency anemia D50.9 Acute renal failure superimposed on stage 2 chronic kidney disease N17.9; N18.2 Bilateral lower extremity edema R60.0
[2019-03-13 20:36] LABS: Glucose Point of Care 271 mg/dL (70-110)
[2019-03-13 21:52] LABS: Glucose Point of Care 235 mg/dL (70-110)
[2019-03-14] VITALS: BP 137/82; PULSE 82; RESP 18; TEMP 36.6; O2SAT 94
[2019-03-14 04:00] VITALS: BP 136/84; PULSE 86; RESP 18; TEMP 36.8; O2SAT 96
[2019-03-14 05:56] LABS: Basophils % 0.4 %; Eosinophils # 0.3 10^3/uL (0.0-0.8); Eosinophils % 3.8 %; Hematocrit 31.5 % (42.0-52.0); Lymphocytes # 1.5 10^3/uL (0.8-4.8); Lymphocytes % 22.1 %; Mean Corpuscular HGB Conc 31.7 g/dL (30.0-36.0); Mean Corpuscular Hemoglobin 29.2 pg (28.0-34.0); Mean Corpuscular Volume 92.1 fL (80-94); Mean Platelet Volume 11.6 fL (7.4-10.4); Monocytes # 0.6 10^3/uL (0.2-0.9); Monocytes % 8.4 %; Neutrophils # 4.4 10^3/uL (1.8-7.7); Nucleated Red Blood Cells % 0 %; Platelet Count 212 10^3/cmm (130-400); Red Blood Count 3.42 10^6/uL (4.1-5.3); White Blood Count 6.8 10^3/uL (4.0-10.0)
[2019-03-14 06:19] LABS: Alanine Aminotransferase 7 U/L (0-41); Albumin Level 3.5 g/dL (3.5-5.2); Alkaline Phosphatase 77 IU/L (40-130); Aspartate Amino Transferase 13 U/L (0-40); Blood Urea Nitrogen 38 mg/dL (8-23); Calcium 9.1 mg/dL (8.5-10.5); Carbon Dioxide 24 mmol/L (22-29); Chloride 100 mmol/L (98-107); Globulin 3.5 g/dL (1.3-4.6); Glucose 149 mg/dL (74-106); Sodium 138 mmol/L (136-145); Total Bilirubin 0.2 mg/dL (0.15-1.2)
[2019-03-14 06:50] LABS: Glucose Point of Care 189 mg/dL (70-110)
[2019-03-14 07:26] VITALS: BP 140/80; PULSE 85; RESP 18; TEMP 36.8; O2SAT 97
[2019-03-14] MEDS: insulin glargine 100 units/1 mL 40 UNIT SUBCUT (10:32)
[2019-03-14] MEDS: clopidogrel 75 mg Tablet PO (10:33)
[2019-03-14] MEDS: gabapentin 100 mg Capsule PO (10:33)
[2019-03-14] MEDS: FUROsemide 40 mg Tablet PO (10:34)
[2019-03-14] MEDS: metoprolol tartrate 25 mg Tablet 12.5 MG PO ×2 (10:34→17:38)
[2019-03-14 10:58] LABS: Glucose Point of Care 336 mg/dL (70-110)
[2019-03-14 11:04] VITALS: BP 140/73; PULSE 70; RESP 22; TEMP 36.4; O2SAT 90
--- NOTE | 2019-03-14 15:09 | USCV_ITS ---
Marco Antonio Valadez Age: 79 Gender: M : 1940 Exam Date: 03/14/2019 16:10 Ordering Phys: Jamil Elliott MD Technologist: Bridget Ulrich Exam Location: [facility] [place] Indication: CVA Risk Factors: Unknown Previous Vascular Surgery: None Right Brachial BP: / Left Brachial BP: / Right Left Velocity (cm/s) Spectral Plaque Velocity (cm/s) Spectral Plaque Syst/Diast Broadening Syst/Diast Broadening 70.90/ 12.80 Prox CCA 79.40 / 13.20 59.00/ 14.50 Mid CCA 93.70 / 15.40 64.10/ 13.70 Hetro Distal CCA 49.60 / 15.40 Hetro 50.00/ 19.70 Fuentes Prox ICA 74.30 / 19.70 Hetro 74.90/ 27.60 Mid ICA 73.50 / 29.90 93.30/ 34.20 Distal ICA 90.40 / 28.70 86.00 ECA 73.50 1.46 ICA/CCA 1.82 Vertebral Antegrade / cm/s 38.80/ 10.90 cm/s Tri Subclavian Tri 84.10 64.40 FINDINGS Comparison: none available. See measurements listed above. CONCLUSIONS Right ICA stenosis <50%. Moderate calcified atheromatous plaque right carotid bulb/ICA. Left ICA stenosis <50%. Mild atheromatous plaque left carotid bulb/ICA. Right vertebral artery not well seen Normal antegrade Doppler flow noted in the left vertebral artery. Juan M Hoover MD (Electronically Signed) Final Date: 15 March 2019 14:28 S
--- NOTE | 2019-03-14 15:11 | PM.PN ---
Subjective Subjective: Interval history: Patient reports being weak. Reports that upon admission he had difficulty saying what he wanted to say. He knew what he wanted to say but could not voice it. Reports overall being weak and does not feel safe to be dismissed home as he lives alone. He denies shortness of breath or chest pain. He denies cough. Denies abdominal pain or problems bowel movement or urination. Reports being on a blood thinners but could not recall his medications. Last year I have discharged patient on small dose statin but he was unable to take it because of generalized pain adverse reaction. He is willing to try other statin. He denied true allergic reaction. Vitals/I&O/Wt Last Vital Signs Temp 97.5 F L 03/14/19 11:04 Pulse 70 03/14/19 11:04 Resp 22 H 03/14/19 11:04 BP 140/73 03/14/19 11:04 Pulse Ox 90 03/14/19 11:04 03/14/19 03/14/19 03/14/19 06:59 14:59 22:59 Intake Total 720 / 720 Output Total 1200 / 3050 1600 / 1600 Balance -1200 / -1970 -880 / -880 Weight last 48 hrs Weight 149.685 kg Physical Exam Resp: COMMON NORMALS: normal respiratory effort and clear to auscultation bilaterally AUSCULTATION: clear to auscultation bilaterally Cardio: COMMON NORMALS: regular rate, regular rhythm and S2 normal heart sound RATE: regular rate RHYTHM: regular rhythm HEART SOUNDS: S2 normal GI: COMMON NORMALS: normal to inspection, nondistended, normoactive bowel sounds, soft to palpation and non-tender PALPATION: Yes soft Urinary Catheter Management^: Coude: Cath Placed During This Visit: no Data : 03/14/19 05:10 03/14/19 05:10 A&P Assessment and plan (1) Slurred speech: Suspected to be due to cerebrovascular accident. Status: Acute Code(s): R47.81 - Slurred speech (2) Cold intolerance: Status: Acute Code(s): R68.89 - Other general symptoms and signs (3) Iron deficiency anemia: Status: Acute Code(s): D50.9 - Iron deficiency anemia, unspecified (4) Acute renal failure superimposed on stage 2 chronic kidney disease: Status: Acute Code(s): N17.9 - Acute kidney failure, unspecified; N18.2 - Chronic kidney disease, stage 2 (mild) (5) Bilateral lower extremity edema: Status: Acute Code(s): R60.0 - Localized edema Additional A&P Information TIA Slurred speech which has resolved by now, NIH 0 Suspect edentulous state makes it hard to discern CT head negative for any acute pathologies, would not be able to obtain CT head and neck because of high creatinine 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 Will request carotid Doppler ultrasound and try different statin. Continue physical therapy. Will consult social work manager to arrange placement as patient does not feel safe to be dismissed home. Monitor on telemetry. Consider outpatient event monitor. Acute on chronic kidney disease stage II He has of left renal mass there was concern for renal cell cancer however his hemoglobin has been gradually dropping which is consistent with iron deficiency anemia he gets iron injections by Dr. Allen cr currently at 2.4, previous trend mostly between 1.8-2.2 History of multiple cancers, renal mass, Shila-Hernandez syndrome, stage IV pancreatic neuroendocrine tumor He is not a surgical candidate and is getting Sandostatin 30 mg intramuscular every month He is seeing Dr. Allen every 3 months DVT prophylaxis: SCDs Would avoid use of anticoagulation because of ongoing anemia Hyperglycemia with poorly controlled type 2 diabetes: We will keep him on moderate dose sliding scale with home dose of Lantus. This am level was at 565, better contolled now Poor quality of life due to multiple comorbid conditions, arthritis, lower extremity swelling Will get PT evaluation Patient is DNR/DNI Attestations Medical Necessity Statement*: Patient with what appears to be cerebrovascular accident requires close inpatient monitoring and treatment and will likely require placement in nursing facility due to safety concerns. Time Spent in Patient Care: 16 - 35 minutes Coding Level of Care Code Acute Saddle Lining Stitcher for Chg Fwd Diagnoses Slurred speech R47.81 Cold intolerance R68.89 Iron deficiency anemia D50.9 Acute renal failure superimposed on stage 2 chronic kidney disease N17.9; N18.2 Bilateral lower extremity edema R60.0
[2019-03-14 15:21] VITALS: BP 107/64; PULSE 70; RESP 18; TEMP 36.6; O2SAT 96
[2019-03-14 16:04] LABS: Glucose Point of Care 242 mg/dL (70-110)
[2019-03-14 19:10] VITALS: BP 137/82; PULSE 75; RESP 20; TEMP 37; O2SAT 92
--- NOTE | 2019-03-14 19:29 | USCV_ITS ---
Marco Antonio Valadez Age: 79 Gender: M : 1940 Exam Date: 03/14/2019 08:49 Ordering Phys: Mehnaz Morton MD Technologist: Bridget Ulrich Exam Location: [facility] Indication: SWELLING HISTORY: Bilateral lower extremity swelling. PROCEDURES: Comparison: none available. The venous duplex Doppler examination of both lower extremities was performed in the standard fashion. The following venous structures were evaluated: common femoral vein, profunda vein, proximal portion of the greater saphenous vein, superficial femoral vein, and the popliteal vein. In addition, the posterior tibial and peroneal trunk were evaluated. Serial compression, augmentation maneuvers, and spectral Doppler flow evaluation were performed. FINDINGS: Examination was technically limited due to body habitus. No evidence of DVT seen in any vessel visualized at this time. Mid calf veins not well seen. CONCLUSIONS No evidence of DVT in the above-mentioned identifiable veins. 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
[2019-03-14 21:03] LABS: Glucose Point of Care 297 mg/dL (70-110)
[2019-03-15] VITALS (7 sets, daily range): BP systolic 115–160; BP diastolic 69–93; PULSE 77–88; RESP 16–20; TEMP 36.4–37; O2SAT 91–96
[2019-03-15 06:40] LABS: Glucose Point of Care 157 mg/dL (70-110)
[2019-03-15] MEDS: FUROsemide 40 mg Tablet PO (09:17)
[2019-03-15] MEDS: gabapentin 100 mg Capsule PO (09:17)
[2019-03-15] MEDS: insulin glargine 100 units/1 mL 40 UNIT SUBCUT (09:17)
[2019-03-15] MEDS: clopidogrel 75 mg Tablet PO (09:17)
[2019-03-15] MEDS: metoprolol tartrate 25 mg Tablet 12.5 MG PO ×2 (09:17→17:26)
--- NOTE | 2019-03-15 11:31 | PC.SOCIAL ---
Pg 2 of IMM Pg 2 of IMM was explained to and signed by patient, copy was provided, and form placed in chart. He verbalized understanding and had no questions.
[2019-03-15 12:09] LABS: Glucose Point of Care 278 mg/dL (70-110)
--- NOTE | 2019-03-15 14:26 | P.PN_ITS ---
Subjective Subjective: Interval history: Patient reports that last night he had episodes of nausea but no vomiting. Reports that movements can easily make him dizzy. Denies shortness of breath or chest pain. Denies being lightheaded or dizzy during my evaluation. Reports having minimal burning on urination last night and this morning. Continues to be weak and does not feel strong enough to be dismissed home. Have discussed with case management and we will arrange placement in nursing facility. Jackisam was added. Cerebrovascular accident cannot be completely ruled out and with underlying malignancy will request head MRI. Small dose atorvastatin started. Continue physical therapy. Medications: Reviewed: Yes Vitals/I&O/Wt Last Vital Signs Temp 97.8 F 03/15/19 11:14 Pulse 83 03/15/19 11:14 Resp 20 H 03/15/19 11:14 BP 160/82 03/15/19 11:14 Pulse Ox 91 03/15/19 11:14 03/14/19 03/15/19 03/15/19 22:59 06:59 14:59 Intake Total 480 / 1200 720 / 720 Output Total 920 / 2520 400 / 2920 320 / 320 Balance -440 / -1320 -400 / -1720 400 / 400 Physical Exam Resp: COMMON NORMALS: normal respiratory effort and clear to auscultation bilaterally AUSCULTATION: clear to auscultation bilaterally Cardio: COMMON NORMALS: regular rate, regular rhythm and S2 normal heart sound RATE: regular rate RHYTHM: regular rhythm HEART SOUNDS: S2 normal GI: COMMON NORMALS: normal to inspection, nondistended, normoactive bowel sounds, soft to palpation and non-tender PALPATION: Yes soft Urinary Catheter Management^: Coude: Cath Placed During This Visit: no Data : 03/14/19 05:10 03/14/19 05:10 A&P Assessment and plan (1) Slurred speech: Suspected to be due to cerebrovascular accident. Improved. Status: Acute Code(s): R47.81 - Slurred speech (2) Cold intolerance: Status: Acute Code(s): R68.89 - Other general symptoms and signs (3) Iron deficiency anemia: Status: Acute Code(s): D50.9 - Iron deficiency anemia, unspecified (4) Acute renal failure superimposed on stage 2 chronic kidney disease: Status: Acute Code(s): N17.9 - Acute kidney failure, unspecified; N18.2 - Chronic kidney disease, stage 2 (mild) (5) Bilateral lower extremity edema: Status: Acute Code(s): R60.0 - Localized edema (6) Peripheral vascular disease: Status: Acute Code(s): I73.9 - Peripheral vascular disease, unspecified Additional A&P Information TIA Slurred speech which has resolved by now, NIH 0 Suspect edentulous state makes it hard to discern CT head negative for any acute pathologies, would not be able to obtain CT head and neck because of high creatinine 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 Will request carotid Doppler ultrasound and try different statin. Continue physical therapy. Will consult social insurance adviser to arrange placement as patient does not feel safe to be dismissed home. Monitor on telemetry. Consider outpatient event monitor. Acute on chronic kidney disease stage II He has of left renal mass there was concern for renal cell cancer however his hemoglobin has been gradually dropping which is consistent with iron deficiency anemia he gets iron injections by Dr. Allen cr currently at 2.4, previous trend mostly between 1.8-2.2 History of multiple cancers, renal mass, Hsila-Hernandez syndrome, stage IV pancreatic neuroendocrine tumor He is not a surgical candidate and is getting Sandostatin 30 mg intramuscular every month He is seeing Dr. Allen every 3 months DVT prophylaxis: SCDs Would avoid use of anticoagulation because of ongoing anemia Hyperglycemia with poorly controlled type 2 diabetes: We will keep him on moderate dose sliding scale with home dose of Lantus. This am level was at 565, better contolled now Poor quality of life due to multiple comorbid conditions, arthritis, lower extremity swelling Will get PT evaluation Patient is DNR/DNI Attestations Medical Necessity Statement*: Patient was concern for stroke as well as generalized weakness requires close inpatient monitoring and treatment until appropriate placement in nursing facility is arranged. Patient will need to have further evaluation of his lightheadedness as he continues to be symptomatic. Coding Level of Care Code Acute Rn Digestive for Chg Fwd Diagnoses Slurred speech R47.81 Cold intolerance R68.89 Iron deficiency anemia D50.9 Acute renal failure superimposed on stage 2 chronic kidney disease N17.9; N18.2 Bilateral lower extremity edema R60.0 Peripheral vascular disease I73.9
[2019-03-15 16:38] LABS: Glucose Point of Care 263 mg/dL (70-110)
--- NOTE | 2019-03-15 19:00 | PC.NURSE ---
Introduction of staff and report received, aidet.
[2019-03-15] MEDS: atorvastatin 40 mg Tablet 20 MG PO (21:34)
[2019-03-15 22:21] LABS: Glucose Point of Care 170 mg/dL (70-110)
[2019-03-16 04:00] VITALS: BP 107/67; PULSE 82; RESP 20; TEMP 36.6; O2SAT 92
[2019-03-16 05:31] LABS: Basophils # 0.1 10^3/uL (0.0-0.1); Basophils % 0.7 %; Eosinophils # 0.3 10^3/uL (0.0-0.8); Eosinophils % 3.6 %; Hematocrit 33.9 % (42.0-52.0); Hemoglobin 10.8 g/dL (11.7-16.6); Lymphocytes # 1.7 10^3/uL (0.8-4.8); Mean Corpuscular HGB Conc 31.9 g/dL (30.0-36.0); Mean Corpuscular Volume 94.2 fL (80-94); Mean Platelet Volume 11.7 fL (7.4-10.4); Monocytes # 0.5 10^3/uL (0.2-0.9); Monocytes % 6.6 %; Neutrophils % 66.7 %; Nucleated Red Blood Cells % 0 %; Platelet Count 243 10^3/cmm (130-400); White Blood Count 7.5 10^3/uL (4.0-10.0)
[2019-03-16 05:45] LABS: Alanine Aminotransferase 9 U/L (0-41); Albumin Level 3.2 g/dL (3.5-5.2); Alkaline Phosphatase 74 IU/L (40-130); Aspartate Amino Transferase 14 U/L (0-40); Blood Urea Nitrogen 40 mg/dL (8-23); Calcium 8.9 mg/dL (8.5-10.5); Carbon Dioxide 21 mmol/L (22-29); Chloride 101 mmol/L (98-107); Globulin 4.2 g/dL (1.3-4.6); Glucose 148 mg/dL (74-106); Sodium 139 mmol/L (136-145); Total Bilirubin 0.2 mg/dL (0.15-1.2); Total Protein 7.4 g/dL (6.6-8.7)
[2019-03-16 06:57] LABS: Glucose Point of Care 162 mg/dL (70-110)
[2019-03-16 07:22] VITALS: BP 138/78; PULSE 68; RESP 22; TEMP 36.4; O2SAT 94
[2019-03-16] MEDS: FUROsemide 40 mg Tablet PO (08:37)
[2019-03-16] MEDS: gabapentin 100 mg Capsule PO (08:37)
[2019-03-16] MEDS: clopidogrel 75 mg Tablet PO (08:37)
[2019-03-16] MEDS: metoprolol tartrate 25 mg Tablet 12.5 MG PO ×2 (08:37→17:58)
[2019-03-16] MEDS: insulin glargine 100 units/1 mL 40 UNIT SUBCUT (08:41)
[2019-03-16 11:00] LABS: Glucose Point of Care 311 mg/dL (70-110)
[2019-03-16 11:16] VITALS: BP 130/66; PULSE 64; RESP 18; TEMP 36.8; O2SAT 96
--- NOTE | 2019-03-16 14:02 | PC.CHAP ---
Pastoral Care Encounter/Spiritual Assessment Type of Contact [] Declined cutter down visit [] Patient/Family/Request visit [] Outpatient visit [] Follow-up visit [] Physician referral [] Code/Alert [] Routine visit [] Staff referral [] Actively dying [] Patient sleeping [] Family support [] [] Out of room [] Palliative care [] [] Receiving care in room [] Pre-surgical visit [] Trauma [] Long length of stay [] ICU visit [] Other: Relational/Emotional Strength [] Patient feels connected with others/family/visitors/staff [] Distress [] Loneliness/isolation [] Abandonment Spirituality of Patient [] Person of Maribel [] Attends Denominational of their Maribel [] Believes in Prayer [] Reads Bible or Mandaeism materials [] There are Spiritual issues to be addressed Hasher Operator Interventions [] Prayer [] Active listening [] Non-anxious presence [] Spiritual/emotional support [] Crisis/trauma care [] Spiritual counseling [] Bereavement support [] Provided bereavement packet [] Provided Bible/devotional materials [] Provided toy/stuffed animal, coloring book to patient or family member [] Provided Communion [] Anointing/Elbe [] Salvation [] Completed spiritual assessment [] Other: Impact on Illness or Injury [] Angry [] Fearful [] Anxious [] Often cries [] Exhaustion [] Unable to work [] Unable to attend sabianist [] Unable to walk/stand [] Unable to read [] Unable to drive [] Unable to eat/drink [] Unable to sleep [] Unable to be with family [] Patient intubated [] Other: Summary Time spent with patient
--- NOTE | 2019-03-16 14:41 | PM.PN ---
Subjective Subjective: Interval history: Patient denies any complaints this morning including shortness of breath or chest pain. Reports that he has been somewhat nauseous lately and appears to be improving with food intake. Reports that he takes at home 325 mg of aspirin daily. He cannot recall all his medications and we have tried multiple times obtaining patient's medications from family and [facility] but not successful. Patient refuses to consider nursing facility placement for rehabilitation and prefers to go home with home health. Unfortunately we could not discharge patient home today because we cannot reconcile his home medications. We will continue further monitoring and try again tomorrow. I will start the patient on Protonix and the patient was told to avoid any NSAIDs. Medications: Reviewed: Yes Vitals/I&O/Wt Last Vital Signs Temp 98.2 F 03/16/19 11:16 Pulse 64 03/16/19 11:16 Resp 18 03/16/19 11:16 BP 130/66 03/16/19 11:16 Pulse Ox 96 03/16/19 11:16 03/15/19 03/16/19 03/16/19 22:59 06:59 14:59 Intake Total 480 / 1200 720 / 720 Output Total 500 / 820 600 / 1420 750 / 750 Balance -20 / 380 -600 / -220 -30 / -30 Weight last 48 hrs Weight 149.799 kg Physical Exam Const: COMMON NORMALS: no apparent distress and oriented x3 Resp: COMMON NORMALS: normal respiratory effort and clear to auscultation bilaterally AUSCULTATION: clear to auscultation bilaterally Cardio: COMMON NORMALS: regular rate, regular rhythm and S2 normal heart sound RATE: regular rate RHYTHM: regular rhythm HEART SOUNDS: S2 normal OTHER: No lower extremity edema GI: COMMON NORMALS: normal to inspection, nondistended, normoactive bowel sounds, soft to palpation and non-tender PALPATION: Yes soft Neuro: COMMON NORMALS: oriented x3 and no focal motor deficits Urinary Catheter Management^: Coude: Cath Placed During This Visit: yes Urethral Indwelling: No Reason for Continuing Indwelling Catheter: Accurate Measurement of Urinary Output in Critically Ill Patients Urinary Catheter Date of Insertion: 03/13/19 Urinary Catheter Time of Insertion: 01:42 Data : 03/16/19 04:30 03/16/19 04:30 A&P Assessment and plan (1) Slurred speech: Suspected to be due to cerebrovascular accident. Improved. Status: Acute Code(s): R47.81 - Slurred speech (2) Cold intolerance: Status: Acute Code(s): R68.89 - Other general symptoms and signs (3) Iron deficiency anemia: Status: Acute Code(s): D50.9 - Iron deficiency anemia, unspecified (4) Acute renal failure superimposed on stage 2 chronic kidney disease: Status: Acute Code(s): N17.9 - Acute kidney failure, unspecified; N18.2 - Chronic kidney disease, stage 2 (mild) (5) Bilateral lower extremity edema: Status: Acute Code(s): R60.0 - Localized edema (6) Peripheral vascular disease: Status: Acute Code(s): I73.9 - Peripheral vascular disease, unspecified (7) GERD (gastroesophageal reflux disease): Status: Acute Code(s): K21.9 - Gastro-esophageal reflux disease without esophagitis Additional A&P Information TIA Slurred speech which has resolved by now, NIH 0 Suspect edentulous state makes it hard to discern CT head negative for any acute pathologies, would not be able to obtain CT head and neck because of high creatinine 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 Will request carotid Doppler ultrasound and try different statin. Continue physical therapy. Will consult social media marketing analyst to arrange placement as patient does not feel safe to be dismissed home. Monitor on telemetry. Consider outpatient event monitor. Acute on chronic kidney disease stage II He has of left renal mass there was concern for renal cell cancer however his hemoglobin has been gradually dropping which is consistent with iron deficiency anemia he gets iron injections by Dr. Allen cr currently at 2.4, previous trend mostly between 1.8-2.2 History of multiple cancers, renal mass, Shila-Hernandez syndrome, stage IV pancreatic neuroendocrine tumor He is not a surgical candidate and is getting Sandostatin 30 mg intramuscular every month He is seeing Dr. Allen every 3 months DVT prophylaxis: SCDs Would avoid use of anticoagulation because of ongoing anemia Hyperglycemia with poorly controlled type 2 diabetes: We will keep him on moderate dose sliding scale with home dose of Lantus. This am level was at 565, better contolled now Poor quality of life due to multiple comorbid conditions, arthritis, lower extremity swelling Will get PT evaluation Patient is DNR/DNI Attestations Medical Necessity Statement*: Patient with what appears to be TIA and GERD requires close inpatient monitoring and treatment until medications are reconciled for appropriate discharge. Coding Level of Care Code Acute Head Of Visual Merchandising for Chg Fwd Diagnoses Slurred speech R47.81 Cold intolerance R68.89 Iron deficiency anemia D50.9 Acute renal failure superimposed on stage 2 chronic kidney disease N17.9; N18.2 Bilateral lower extremity edema R60.0 Peripheral vascular disease I73.9 GERD (gastroesophageal reflux disease) K21.9
[2019-03-16 15:12] VITALS: BP 130/68; PULSE 68; RESP 20; TEMP 36.3; O2SAT 96
[2019-03-16 16:11] LABS: Glucose Point of Care 214 mg/dL (70-110)
[2019-03-16] MEDS: pantoprazole DR 40 mg Tablet PO (17:58)
--- NOTE | 2019-03-16 19:00 | PC.NURSE ---
INTRODUCTION OF STAFF AND REPORT RECEIVED, AIDET.
[2019-03-16] MEDS: atorvastatin 40 mg Tablet 20 MG PO (20:12)
[2019-03-16 21:06] LABS: Glucose Point of Care 225 mg/dL (70-110)
[2019-03-17] VITALS: BP 131/73; PULSE 78; RESP 18; TEMP 37.1; O2SAT 93
[2019-03-17 03:55] VITALS: BP 114/63; PULSE 79; RESP 20; TEMP 36.8; O2SAT 91
[2019-03-17 06:57] LABS: Glucose Point of Care 286 mg/dL (70-110)
[2019-03-17 07:10] VITALS: BP 138/74; PULSE 78; RESP 20; TEMP 36.6; O2SAT 93
--- NOTE | 2019-03-17 09:33 | PC.SOCIAL ---
IMM update Pg 2 of IMM was updated with patient and a copy was provided. He verbalized understanding and had no questions. Initialed, dated, and timed copy in chart.
[2019-03-17] MEDS: FUROsemide 40 mg Tablet PO (09:45)
[2019-03-17] MEDS: pantoprazole DR 40 mg Tablet PO ×2 (09:45→17:32)
[2019-03-17] MEDS: metoprolol tartrate 25 mg Tablet 12.5 MG PO ×2 (09:45→17:32)
[2019-03-17] MEDS: gabapentin 100 mg Capsule PO (09:45)
[2019-03-17] MEDS: clopidogrel 75 mg Tablet PO (09:46)
[2019-03-17] MEDS: insulin glargine 100 units/1 mL 40 UNIT SUBCUT (09:47)
[2019-03-17 10:59] LABS: Glucose Point of Care 383 mg/dL (70-110)
[2019-03-17 11:01] VITALS: BP 145/78; PULSE 93; RESP 20; TEMP 36.9; O2SAT 94
--- NOTE | 2019-03-17 13:34 | PM.DCS ---
Discharge Providers Date of Admission: 03/12/19 22:16 Date of Discharge: Date of Discharge: March 17, 2019 Attending Provider at Admission: Mehnaz Morton MD Attending Provider at Discharge: Jamil Elliott MD Primary Care Provider: BEVERLY Griffin Diagnoses at Discharge Discharge Diagnosis (1) Slurred speech: Status: Acute Problem details: Cerebrovascular accident cannot be ruled out (2) Cold intolerance: Status: Acute (3) Iron deficiency anemia: Status: Acute (4) Acute renal failure superimposed on stage 2 chronic kidney disease: Status: Acute (5) Bilateral lower extremity edema: Status: Acute (6) Peripheral vascular disease: Status: Acute Problem details: With evidence of carotid artery disease especially on the right. (7) GERD (gastroesophageal reflux disease): Status: Acute Reason for Visit Reason for Visit: Reason For Visit: Tia Hospital Course Discharge Summary: Patient presented with slurred speech with suspicion for TIA. Patient was taking full dose aspirin and Plavix but was not on statins. We have tried atorvastatin and so far patient is tolerating it well. Patient had further evaluation with carotid artery ultrasound showing some disease on the right with less than 50% occlusion. He showed no evidence of focal neurological findings. This morning patient reports feeling much better and strong enough to be dismissed home. He does not want to consider nursing facility for rehabilitation and does not think that he needs home health. Reports that he has enough help at home. Physical Exam Const: COMMON NORMALS: no apparent distress and oriented x3 Resp: COMMON NORMALS: normal respiratory effort and clear to auscultation bilaterally AUSCULTATION: clear to auscultation bilaterally Cardio: COMMON NORMALS: regular rate, regular rhythm and S2 normal heart sound RATE: regular rate RHYTHM: regular rhythm HEART SOUNDS: S2 normal OTHER: 1+ lower extremity edema GI: COMMON NORMALS: normal to inspection, nondistended, normoactive bowel sounds, soft to palpation and non-tender PALPATION: Yes soft Neuro: COMMON NORMALS: oriented x3 and no focal motor deficits Urinary Catheter Management^: Coude: Cath Placed During This Visit: yes Urethral Indwelling: No Reason for Continuing Indwelling Catheter: Accurate Measurement of Urinary Output in Critically Ill Patients Urinary Catheter Date of Insertion: 03/13/19 Urinary Catheter Time of Insertion: 01:42 Discharge Data Data Completed and Pending: Completed Studies During Hospitalization Category Date Time Status CT head wo con* [id number] Urgent Cat Scan 03/12/19 15:34 Completed XR chest 1V jayla ble [id number] Urgent Exams 03/12/19 15:34 Completed CV carotid duplex BI* [id number] Routine Ultrasound 03/14/19 15:09 [place] [id number] Routin e Ultrasound 03/14/19 19:29 Completed Labs from last 24 hours 03/17/19 03/17/19 03/16/19 10:55 06:30 20:14 POC Glucose 383 286 225 03/16/19 15:57 POC Glucose 214 Vitals: Last Vital Signs Temp 98.4 F 03/17/19 11:01 Pulse 93 03/17/19 11:01 Resp 20 H 03/17/19 11:01 BP 145/78 03/17/19 11:01 Pulse Ox 94 03/17/19 11:01 Discharge Plan Discharge Patient Disposition: Home, Self-Care Condition: Stable Prescriptions: New metoprolol tartrate 25 mg Tablet 12.5 mg PO BID Qty: 60 RF: 0 pantoprazole 40 mg Tablet,Delayed Release (Dr/Ec) 40 mg PO BID Qty: 60 RF: 0 atorvastatin 40 mg Tablet 20 mg PO BEDTIME Qty: 30 RF: 0 aspirin [Adult Low Dose Aspirin] 81 mg tablet,delayed release (DR/EC) 81 mg PO DAILY Qty: 30 RF: 0 Continued torsemide 20 mg Tablet 20 mg PO DAILY RF: 0 nitroglycerin 0.4 mg Tablet, Sublingual 0.4 mg SUBLINGUAL Q5M RF: 0 isosorbide mononitrate 30 mg Tablet Extended Release 24 Hr 30 mg PO DAILY RF: 0 gabapentin 100 mg Capsule 100 mg PO DAILY RF: 0 bicalutamide 50 mg Tablet 50 mg PO DAILY RF: 0 duloxetine 20 mg Capsule,Delayed Release(Dr/Ec) 20 mg PO DAILY RF: 0 clopidogrel 75 mg Tablet 75 mg PO DAILY RF: 0 insulin aspart U-100 5 units auto-injector SUBCUT TIDWM RF: 0 Lantus U-100 Insulin 100 unit/mL Solution 55 unit SUBCUT DAILY RF: 0 albuterol sulfate 90 mcg/actuation Hfa Aerosol Inhaler INHALATION RF: 0 capsaicin topical QID RF: 0 hydrophilic cream Cream 1 applic TOPICAL DAILY RF: 0 Discontinued metoprolol tartrate 25 mg Tablet 25 mg PO DAILY RF: 0 furosemide 40 mg Tablet 40 mg PO DAILY RF: 0 famotidine 20 mg Tablet 20 mg PO DAILY RF: 0 Referrals: Leslie Villalta FNP [Primary Care Provider] - Discharge Diet: Usual diet Discharge Activity: Resume usual activity Activity Restrictions/Additional Instructions: Please call your doctor or present to emergency department if your condition worsens or you develop diarrhea, lightheadedness, fatigue or see blood in your stool or black stool. Please do not take aspirin 325 mg as you told me and only take 81 mg enteric-coated daily. Discharge Attestations Time Spent in Discharge Care*: greater than 30 min Quality Metrics Clinical Quality Measures During this hospital stay, did patient experience: Stroke Contraindication to Antithrombotic: Antithrombotic prescribed Contraindication to Anticoagulation: Other (No indication) Contraindication to Statin: Statin prescribed Coding Level of Care Code Acute Preservative Filler Machine Operator for Chg Fwd Diagnoses Slurred speech R47.81 Cold intolerance R68.89 Iron deficiency anemia D50.9 Acute renal failure superimposed on stage 2 chronic kidney disease N17.9; N18.2 Bilateral lower extremity edema R60.0 Peripheral vascular disease I73.9 GERD (gastroesophageal reflux disease) K21.9
[2019-03-17 14:58] VITALS: BP 132/68; PULSE 68; RESP 20; TEMP 36.8; O2SAT 96
[2019-03-17 17:04] LABS: Glucose Point of Care 237 mg/dL (70-110)
[2019-03-17 19:26] VITALS: BP 132/68; PULSE 68; RESP 20; TEMP 36.8; O2SAT 96
== END 2019-03-17 18:30 | disposition home or self-care (01) | DRG 64 ==
LOC: ER 17:51 → MEDSURG 23:24
PROVIDERS: Emergency Medicine; Student in an Organized Health Care Education/Training Program; Admitting Provider Internal Medicine; Emergency Provider Emergency Medicine; Family Provider Nurse Practitioner; PCP Nurse Practitioner; Visit Provider Internal Medicine
DX: I63.9 Cerebral infarction, unspecified (principal); I50.41 Acute combined systolic (congestive) and diastolic (congestive) heart failure; N17.9 Acute kidney failure, unspecified; C25.0 Malignant neoplasm of head of pancreas; I13.0 Hypertensive heart and chronic kidney disease with heart failure and stage 1 through stage 4 chronic kidney disease, or unspecified chronic kidney disease; Z66 Do not resuscitate; R47.81 Slurred speech; R29.700 NIHSS score 0; E11.22 Type 2 diabetes mellitus with diabetic chronic kidney disease; Z85.46 Personal history of malignant neoplasm of prostate; E11.65 Type 2 diabetes mellitus with hyperglycemia; N18.2 Chronic kidney disease, stage 2 (mild); D50.9 Iron deficiency anemia, unspecified; J44.9 Chronic obstructive pulmonary disease, unspecified; I25.10 Atherosclerotic heart disease of native coronary artery without angina pectoris; Z95.5 Presence of coronary angioplasty implant and graft; I35.0 Nonrheumatic aortic (valve) stenosis; E66.01 Morbid (severe) obesity due to excess calories; Z90.79 Acquired absence of other genital organ(s)
CPT/HCPCS: 12345; 36415; 36416; 36600; 51702; 70450; 71045; 80048; 80053; 80307; 81001; 82140; 82803; 82962; 83036; 83735; 83880; 84443; 84484; 85025; 85610; 92523; 92610; 93005; 93880; 93970; 96372; 97110; 97116; 97162; 97530; 99282; J1815

== ENCOUNTER 2019-03-25 06:12 | Outpatient (RCR) | payer OTHER, SELFPAY ==
[2019-03-25] MEDS: octreotide LAR depot 20 mg Kit 40 MG IM (13:15)
[2019-03-25] MEDS: octreotide LAR depot 30 mg Kit IM (16:14)
== END 2019-04-10 23:59 | disposition home or self-care (01) ==
LOC: ONCMED 06:12
PROVIDERS: Family Provider Nurse Practitioner; PCP Nurse Practitioner; Visit Provider Internal Medicine Medical Oncology
DX: C7A.8 Other malignant neuroendocrine tumors (principal)
CPT/HCPCS: 96372; J2353

== ENCOUNTER 2019-04-26 05:49 | Outpatient (RCR) | payer OTHER, SELFPAY ==
[2019-04-19 11:18] LABS: Basophils # 0.1 10^3/uL (0.0-0.1); Basophils % 0.7 %; Eosinophils # 0.3 10^3/uL (0.0-0.8); Eosinophils % 4.7 %; Hematocrit 33.1 % (42.0-52.0); Hemoglobin 10.5 g/dL (11.7-16.6); Lymphocytes # 1.2 10^3/uL (0.8-4.8); Mean Corpuscular HGB Conc 31.7 g/dL (30.0-36.0); Mean Corpuscular Hemoglobin 28.8 pg (28.0-34.0); Mean Corpuscular Volume 90.7 fL (80-94); Mean Platelet Volume 11.6 fL (7.4-10.4); Monocytes # 0.5 10^3/uL (0.2-0.9); Monocytes % 7.4 %; Neutrophils # 5.2 10^3/uL (1.8-7.7); Neutrophils % 70.9 %; Nucleated Red Blood Cells % 0 %; Platelet Count 261 10^3/cmm (130-400); Red Blood Count 3.65 10^6/uL (4.1-5.3); White Blood Count 7.3 10^3/uL (4.0-10.0)
[2019-04-19 11:32] LABS: Alanine Aminotransferase 8 U/L (0-41); Albumin Level 3.8 g/dL (3.5-5.2); Alkaline Phosphatase 80 IU/L (40-130); Anion Gap 18.4 (5-19); Aspartate Amino Transferase 10 U/L (0-40); Blood Urea Nitrogen 38 mg/dL (8-23); Calcium 9.1 mg/dL (8.5-10.5); Carbon Dioxide 25 mmol/L (22-29); Chloride 101 mmol/L (98-107); Globulin 3.5 g/dL (1.3-4.6); Glucose 114 mg/dL (65-115); Osmolality Calculated 288 mOsm/kg (285-295); Potassium 4.4 mmol/L (3.5-5.1); Sodium 140 mmol/L (136-145); Total Bilirubin 0.2 mg/dL (0.15-1.2); Total Protein 7.3 g/dL (6.6-8.7)
[2019-04-22 17:16] LABS: Chromogranin A 155 ng/mL (25-140)
[2019-04-26] MEDS: octreotide LAR depot 20 mg Kit 40 MG IM (14:40)
--- NOTE | 2019-04-30 14:01 | ONC FU_ITS ---
Dr. Allen Patient Follow-Up Note Patient: Marco Antonio Valadez Unit #: [id number]: 1940 Dicatated By: Jeyson Allen M.D.Date of Visit:Apr 26, 2019 Onc Med Follow-up/Prog Note Chief Complaint: Pancreatic neuroendocrine tumor. 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 He has a history of Shila-Hernandez syndrome, and he has a history of prostate cancer. He reports a prior history of prostate cancer treated with cryoablation in 1999, in [facility]. 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 More recently, he presented with progressive central abdominal pain, diarrhea and B12 deficiency. He underwent further workup at [facility]. Endoscopic ultrasound on 01/12/2014 showed 7.1 cm mass around the head of the pancreas but did not appear to be part of the liver, pancreas or duodenum. There was significant enlarged peripancreatic lymphadenopathy up to 2.1 cm as well as enlarged lymph nodes in the mediastinum and the lower paraesophageal area. Fine needle aspiration of the dominant mass revealed low-grade neuroendocrine carcinoma with immunohistochemistry positive for synaptophysin, chromogranin A and MIB1. Mitotic count was reported extremely low. CT scan on 01/20/2015 without contrast showed dominant mass in the head of the pancreas. He was deemed to be a poor surgical candidate. He was then followed by Dr. Donis in [facility]. 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 Baseline octreotide scan on 04/28/2014 revealed activity in the tip of the liver and abdominal central activity in the head of the pancreas and transverse colon; but CT correlate was not available for the comparison. He began on serial somatostatin injections monthly with cycle 3 delivered on 07/21/2014. Chromogranin A level was 158. 5- HIAA levels were not available. He was first seen by Dr. Elliott on 08/22/2014. He reported no further abdominal pain, diarrhea, or flushing. In general his symptoms had markedly improved since initiation of injections. Restaging PET/CT on 11/19/2014 showed a single enlarging mass measuring 7.8 cm with SUV 4.8, centered at the head of the pancreas. Switching therapy to TKI was discussed, but he eventually decided against it. Sandostatin treatment was continued, as he had symptomatic improvement wtih it. His other medical illnesses include obesity, hypertension, hyperlipidemia, type II diabetes, coronary artery disease, GERD, and degenerative arthritis. He has chronic kidney disease, and he also has chronic anemia. He has had previous coronary angioplasty/stent placement. He has had treatment for prostate cancer which included cryosurgery in 1999 and orchiectomy 2000. He is a nonsmoker. INTERIM HISTORY: Restaging CT of the abdomen and pelvis on 06/05/2015 showed no changes since PET/CT in November 2014, but there was new subacute right 6th rib fracture. As such, he has continued monthly Sandostatin LAR injections. He has continued follow-up with the [facility] in [place]. [facility]2015 showed no focal areas of increased activity to suggest osseous metastatic disease. It also showed a focus of increased activity in the right anterolateral sixth rib appeared consistent with remote fracture. Also noted were degenerative changes in the left shoulder and in the mid to lower thoracic spine, knees, and feet. Restaging CT of the abdomen/pelvis on 12/03/2016 showed unchanged large pancreatic head mass measuring 8.4 x 7.5 CM. Bilateral low-attenuation renal lesions appeared unchanged. On 02/26/2017 he was seen in the emergency room with shortness of breath and productive cough. Chest x-ray showed poor inspiration with no acute findings. He tested negative for influenza. He was prescribed an albuterol inhaler. A noncontrast CT of the abdomen/pelvis on 03/03/2017 showed stable mass in the head of the pancreas measuring 8.0 x 6.3 x 8.7 cm. Low-attenuation masses within each kidney appeared stable. The liver appeared unremarkable. A bone scan on 08/21/2017 showed a nonspecific focus of increased activity to the right of the midline in the lower sacrum. Pelvic x-rays were recommended for further evaluation. A restaging [facility]re[facility] on 08/26/2017 show a dominant area of uptake in the region of the jayla hepatis or head of the pancreas, felt to be consistent with abdi metastasis or primary carcinoid tumor. There was suggestion of an additional area of uptake near the inferior right lobe of the liver, but it also was noted that it could potentially represent a lesion within the hepatic flexure of the colon. There were no other areas of abnormal uptake on that study. Repeat CT scans of the abdomen/pelvis on 03/17/2018 showed large pancreatic head mass, stable in size measuring 8.5 x 7.6 cm. A solid-appearing left upper pole renal lesion appeared stable from the previous study in November 2017 but increased in size compared to previous studies in 2016. As of February 2018 there was further decrease in his hemoglobin to 9.5 g. His subsequent serum iron studies appear to be consistent with iron deficiency with transferrin saturation 15.3% and ferritin 66.0 ng/mL. He then began a trial of oral iron supplementation with ferrous sulfate, which he did not tolerate due to constipation. In June 2018 he was given parenteral iron replacement with 2 infusions of Injectafer. During follow-up there was some increase in the hemoglobin/hematocrit levels, but he remained mildly anemic. He continued treatment with Sandostatin LAR. Restaging CT of the abdomen/pelvis on 10/02/2018 showed persistent, bulky, oval-shaped soft tissue mass arising within or adjacent to the head of the pancreas measuring 7.8 x 9 x 7.1 cm compared to 7.2 x 8.5 x 7.4 cm on the April 2018 study. The overall appearance was similar to the prior studies from April 2018 and November 2017. Bilateral low-density renal lesions appeared stable and appeared to be most likely cysts. Given those findings, he continue treatment with somatostatin analog. He is seen for a scheduled visit. He complains today that for the past 2 to 3 weeks his tailbone is been very sore. He is not aware of having sustained any injury in that area. He currently is getting treatment for skin ulceration on the left leg. He has very limited activity. ECOG score is 3. He has good appetite. His weight is down a few pounds. He does not have fever, night sweats, or flushing episodes. He has shortness of breath with activity. He complains that he has a cough when he eats. He has chest pain occasionally. He does get relief with nitroglycerin. He has no GI complaints other than some constipation. He also has pain in his knees and in his right shoulder. He does not complain of headache. He has neuropathy in his feet. Medications: Bicalutamide 1 Tablet (of 50 mg) Oral daily, Calcium + D 2 Tablet Oral daily, Clotrimazole (1 %) Cream Topical Take as Directed, D3-1000 1 Tablet (of 1000 Units) Oral daily, Famotidine 1 Tablet (of 20 mg) Oral b.i.d., Gabapentin 1 (100 mg) Capsule Oral at bedtime, Insulin Glargine (100 Units/mL) Subcutaneous at bedtime PRN, Isosorbide Mononitrate ER 1 Tablet (of 30 mg) Tablet SR 24 HR Oral daily, Lantus Subcutaneous, Nitroglycerin Tablet, sublingual Sublingual PRN, NovoLOG (100 Units/mL) Subcutaneous Take as Directed, Vitamin A 1 Tablet Oral daily Allergies: IV dye used for chemical stress test and metal steel . Review of Systems: Constitutional - He has very limited activity. His appetite is good. His weight is down a few pounds. He has not had fever, night sweats, or flushing episodes. ECOG score is 3, ENMT - He has a runny nose. No mouth sores. No sore throat or difficulty swallowing, Hematologic/Lymphatic - No abnormal bruising or bleeding, Respiratory - He gets short of breath at times with activity. He tends to have cough with eating. No pleuritic pain or hemoptysis, Cardiovascular - He has occasional chest pain that is relieved with nitroglycerin. No palpitations, Gastrointestinal - No nausea or vomiting. No heartburn or acid reflux. No diarrhea. He sometimes has constipation. No blood in the stool or black stools, Genitourinary (M) - No dysuria or hematuria. He has urinary frequency and urgency. No incontinence, Musculoskeletal - For the past 2 to 3 weeks is tailbone has been very sore. He is not aware of having any injury to that area. He also has pain in both knees and in his right shoulder, Integumentary - He has a small sore to his lower left leg. His home health nurse has been monitoring it, Neurologic - No headache or dizziness. He has neuropathy in his feet, Psychiatric - No anxiety or depression. No insomnia. Vital Signs: Performed on Apr 26, 2019 13:59 Height - 68.00 in Weight - 331 lbs (LOW) BSA - 2.53 sq.m BMI - 50.33 (HIGH) Temperature - 96.6 F (LOW) Pulse - 107 /min (HIGH) Respiration - 22 /min BP - 147/93 mm(hg) (HIGH) O2 Sat - 96 % Pain - 6 Physical Examination: Constitutional - He appears generally weak, Eyes - Sclerae nonicteric. Conjunctivae clear, ENMT - No lesions noted in the oral cavity, Hematologic/Lymphatic - No cervical, clavicular, or axillary adenopathy, Respiratory - Lungs are clear with some decrease in air movement bilaterally, Cardiovascular - Heart rhythm is irregular. There is no murmur, gallop, or rub noted, Abdomen - Distended and tympanic. Liver and spleen are not enlarged. There is no abdominal mass or ascites noted and there is no inguinal adenopathy, Extremities - He has 2 to 3+ lower extremity edema, Integumentary - She has developed an ulceration in the left anterior tibial area. There are no skin changes or other visible abnormality in the coccygeal area, Neurologic - No focal neurologic deficits noted. Lab/Imaging: Test performed on Apr 19, 2019 10:00 Sodium 140 mmol/L Potassium 4.4 mmol/L Chloride 101 mmol/L CO2 25 mmol/L Anion Gap 18.4 BUN 38 mg/dL Creatinine 2.3 mg/dL Cr Clearance (Est) 54.40 mL/min Glucose 114 mg/dL Calcium 9.1 mg/dL Protein, Total 7.3 g/dL Albumin 3.8 g/dL Globulin 3.5 g/dL Bilirubin, Total 0.2 mg/dL ALT (SGPT) 8 U/L AST (SGOT) 10 U/L Alkaline Phosphatase 80 IU/L WBC 7.3 10 3/uL RBC 3.65 10 6/uL HGB 10.5 g/dL HCT 33.1 % MCV 90.7 fL MCH 28.8 pg MCHC 31.7 g/dL RDW 12.0 % Platelet Count 261 10 3/cmm MPV 11.6 fL Neutrophils 5.2 10 3/uL Lymphocytes 1.2 10 3/uL Monocytes 0.5 10 3/uL Eosinophils 0.3 10 3/uL Basophils 0.1 10 3/uL Neutrophil % 70.9 % Lymphocyte % 16.0 % Monocyte % 7.4 % Eosinophil % 4.7 % Basophils % 0.7 % Chromogranin A 155 ng/mL Test performed on Jan 05, 2019 11:45 Serotonin, Serum 22 ng/mL Impression: 1. 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 He was found to have a stage IV low-grade neuroendocrine carcinoma involving a large mass at the level of the pancreas with possible involvement in mediastinal and peripancreatic lymph nodes, though the latter was not confirmed by subsequent PET imaging. He was deemed not to be a surgical candidate. 2. His symptoms of abdominal pain, diarrhea, and flushing improved with initiation of Sandostatin in April of 2014. 3. Restaging PET/CT on 11/19/2014 showed single enlarging mass 7.8 cm, SUV 4.8 centered in the head of the pancreas. The options of switching to targeted treatment with everolimus or sunitinib were discussed, but the patient declined. 4. He has since continued monthly Sandostatin LAR injections, and he has remained stable clinically. Follow-up contrast enhanced CT abdomen/pelvis in May 2015 showed no significant change in the pancreatic mass compared to the PET/CT study in November 2014. There was no other evidence of disease progression within the abdomen/pelvis. His other medical doses include: 5. Obesity. 6. Hypertension. 7. Hyperlipidemia. 8. Type II diabetes. 9. Coronary artery disease. 10. Degenerative arthritis. 11. He also has been undergoing treatment for prostate cancer. Bone scan in July 2015 was negative for metastatic disease. The symptoms associated with his neuroendocrine cancer have been well controlled on the Sandostatin LAR. His surveillance CT scans as of February 2017 had shown no evidence of disease progression. Bone scan on 08/21/2017 showed a nonspecific focus of increased activity in the lower sacrum to the right of the midline. A restaging octreotide scan on 08/26/2017 showed a dominant area of uptake in the region of the jayla hepatis or head of the pancreas, consistent with abdi metastasis or primary carcinoid tumor. There was suggestion of an additional area of uptake involving either the inferior right hepatic lobe of the liver or the hepatic flexure of the colon. His restaging CT scans on 12/03/2017 showed unchanged pancreatic head mass measuring 8.4 x 7.5 cm. During follow-up there has been no evidence of progression of the neuroendocrine tumor, and any associated symptoms appear to be adequately managed with the Sandostatin. His CT scan from March 2018 showed no change in the pancreatic mass, but there was an increase in the size of the left renal mass compared to studies in 2017, which was felt to be suspicious for renal cell carcinoma. As of February 2018 there was some further decrease in his hemoglobin/hematocrit levels. His serum iron studies in March appear consistent with iron deficiency. He was unable to tolerate an oral iron supplement due to severe constipation. As such, in June 2018 he was given parenteral iron replacement with 2 infusions of Injectafer. During subsequent follow-up there was some increase in the hemoglobin/hematocrit levels, but he remained moderately anemic. He has continued to have very marginal performance status. Recently he has been having significant pain in the tailbone area. The cause for that is uncertain. There has been no obvious progression of the pancreatic neuroendocrine tumor. Plan: He will continue treatment with Sandostatin LAR 30 mg by intramuscular injection monthly. He will be scheduled for follow-up visit in 3 months. Signed By: Jeyson Allen M.D. <<Signature on File>>
== END 2019-05-11 23:59 | disposition home or self-care (01) ==
LOC: ONCMED 05:49
PROVIDERS: Family Provider Nurse Practitioner; PCP Nurse Practitioner; Visit Provider Internal Medicine Medical Oncology
DX: C7A.8 Other malignant neuroendocrine tumors (principal); E11.22 Type 2 diabetes mellitus with diabetic chronic kidney disease; I12.9 Hypertensive chronic kidney disease with stage 1 through stage 4 chronic kidney disease, or unspecified chronic kidney disease; N18.9 Chronic kidney disease, unspecified; E66.9 Obesity, unspecified; E78.5 Hyperlipidemia, unspecified; I25.10 Atherosclerotic heart disease of native coronary artery without angina pectoris; K21.9 Gastro-esophageal reflux disease without esophagitis; M19.90 Unspecified osteoarthritis, unspecified site; D63.1 Anemia in chronic kidney disease; E11.42 Type 2 diabetes mellitus with diabetic polyneuropathy; M25.562 Pain in left knee; M25.561 Pain in right knee; M25.511 Pain in right shoulder; Z79.899 Other long term (current) drug therapy; Z79.4 Long term (current) use of insulin; Z85.46 Personal history of malignant neoplasm of prostate; Z95.5 Presence of coronary angioplasty implant and graft; Z92.3 Personal history of irradiation
CPT/HCPCS: 80053; 83497; 84260; 85025; 86316; 96372; 99214; J2353

== ENCOUNTER 2019-05-24 07:08 | Outpatient (RCR) | payer OTHER, SELFPAY ==
[2019-05-24] MEDS: octreotide LAR depot 20 mg Kit 40 MG IM (14:10)
== END 2019-06-10 23:59 | disposition home or self-care (01) ==
LOC: ONCMED 07:08
PROVIDERS: Family Provider Nurse Practitioner; PCP Nurse Practitioner; Visit Provider Nurse Practitioner
DX: C7A.8 Other malignant neuroendocrine tumors (principal); D50.8 Other iron deficiency anemias; E11.21 Type 2 diabetes mellitus with diabetic nephropathy; I25.119 Atherosclerotic heart disease of native coronary artery with unspecified angina pectoris; R53.82 Chronic fatigue, unspecified; I25.10 Atherosclerotic heart disease of native coronary artery without angina pectoris; K21.9 Gastro-esophageal reflux disease without esophagitis; E78.5 Hyperlipidemia, unspecified; I10 Essential (primary) hypertension; E66.01 Morbid (severe) obesity due to excess calories; E16.4 Increased secretion of gastrin; Z85.46 Personal history of malignant neoplasm of prostate; Z91.19 Patient's noncompliance with other medical treatment and regimen
CPT/HCPCS: 96372; J2353

== ENCOUNTER → 2019-06-08 17:30 | Outpatient (BNVA) | payer MEDICARE, SELFPAY | PROVIDERS: Family Provider Nurse Practitioner; PCP Nurse Practitioner; Visit Provider Nurse Practitioner Family | DX: R42 Dizziness and giddiness (principal) | CPT/HCPCS: 36416; 80053; 81003; 82962; 85025 ==

== ENCOUNTER 2019-06-23 07:03 | Outpatient (RCR) | payer OTHER, MEDICARE, SELFPAY ==
[2019-06-23] MEDS: octreotide LAR depot 20 mg Kit 40 MG IM (13:46)
== END 2019-07-11 23:59 | disposition home or self-care (01) ==
LOC: ONCMED 07:03
PROVIDERS: PCP Nurse Practitioner; Visit Provider Internal Medicine Medical Oncology
DX: D50.9 Iron deficiency anemia, unspecified (principal); C7A.8 Other malignant neuroendocrine tumors; E11.21 Type 2 diabetes mellitus with diabetic nephropathy; I25.119 Atherosclerotic heart disease of native coronary artery with unspecified angina pectoris; I25.10 Atherosclerotic heart disease of native coronary artery without angina pectoris; R53.82 Chronic fatigue, unspecified; K21.9 Gastro-esophageal reflux disease without esophagitis; E78.5 Hyperlipidemia, unspecified; I10 Essential (primary) hypertension; E66.01 Morbid (severe) obesity due to excess calories; M19.90 Unspecified osteoarthritis, unspecified site; E16.4 Increased secretion of gastrin; Z85.46 Personal history of malignant neoplasm of prostate; Z91.19 Patient's noncompliance with other medical treatment and regimen
CPT/HCPCS: 96372; J2353

== ENCOUNTER 2019-07-27 15:17 | Emergency (ER) | payer OTHER, MEDICARE, SELFPAY ==
[2019-07-27 16:03] VITALS: BP 161/104; PULSE 90; RESP 20; TEMP 36.7; O2SAT 97; BMI 48.7
--- NOTE | 2019-07-27 16:17 | XR_ITS ---
WS: [id number] XR chest 1V portable [id number] REASON FOR EXAM: shortness of breath FINDINGS: Comparisons were made to March 12, 2019. There is again noted cardiomegaly with arteriosclerotic changes. There is chronic interstitial changes bilaterally but no evidence of pulmonary edema or pneumonia. A granuloma seen in the right lower lung. XR/XR chest 1V portable [id number] IMPRESSION: Arteriosclerotic heart disease. No evidence of congestive heart failure. Chronic interstitial findings.
--- NOTE | 2019-07-27 16:51 | W.ED.SOB ---
Documented by User: Lisandro Lomas DO 07/31/19 15:23 HPI - SOB/Dyspnea General: Chief Complaint: Shortness of Breath/Dyspnea Stated Complaint: muscle cramps, sob, dizzy Time Seen by Provider: 07/27/19 16:35 History of Present Illness: HPI Narrative: 79-year-old male comes in complaining of muscle cramps and shortness of breath some abdominal pain he denies any vomiting or diarrhea or nausea he did have a little bit of chest pain this morning last for a couple hours. He also had some cough he lives at home alone he does not really identify precipitating factor to this. His main complaint of the nurse was just that he was short of breath when I came in to talk to him he states he is no longer short of breath and the chest pain has resolved. MD elicited complaint: shortness of breath Pertinent past history: COPD, congestive heart failure and diabetes Onset (ago): hour(s) Context: medication noncompliance Severity: mild Exacerbating factors: nothing Relieving factors: nothing Known history of: congestive heart failure and diabetes Associated symptoms: Reports abdominal pain, chest pain, cough, dizziness and myalgias; Deny fever(s), lightheadedness or nausea Treatment prior to arrival: none Review of Systems Const: Denies: fever(s) ENMT: Denies: throat pain, ear or mastoid pain, nasal discharge or nasal congestion Card: Reports: chest pain; Denies: lightheadedness Resp: Denies: dyspnea, productive cough or non-productive cough GI: Reports: abdominal pain; Denies: nausea : Denies: flank pain, dysuria, urinary frequency or urinary urgency Skin/Breast: Denies: rash or pruritus Neuro: Reports: dizziness PFSH ED PFSH: Medical History Anemia Aortic stenosis Chronic kidney disease, stage II (mild) COPD (chronic obstructive pulmonary disease) Coronary disease Coronary stent patent Dyslipidemia GERD (gastroesophageal reflux disease) Hypertension Insulin dependent diabetes mellitus Mild aortic stenosis Morbid obesity Neuroendocrine tumor Non-STEMI (non-ST elevated myocardial infarction) Pancreatic tumor Peripheral vascular disease With evidence of carotid artery disease especially on the right. Prostate cancer Renal mass Systolic and diastolic CHF, chronic Type 2 diabetes mellitus Venous stasis Shila-Hernandez syndrome Surgical History H/O prostatectomy Family History Other Hyperlipidemia Hypertension Denies family history of Cancer Social History Smoking and tobacco status: former smoker Caregiver/support person: Yes (Daughter) Household members: caregiver Housing: House Marital status: Single Physical Exam Const: COMMON NORMALS: no acute distress GENERAL APPEARANCE: cooperative and comfortable ORIENTATION/CONSCIOUSNESS: Yes awake, Yes oriented to person, Yes oriented to place and Yes oriented to time HENMT: COMMON NORMALS: normocephalic, atraumatic, hearing grossly normal bilaterally, external ears normal, EAC's normal, TM's normal bilaterally, Normal nasal mucous membranes and turbinates present, moist oral mucous membranes and oropharynx normal HEAD & SCALP: normocephalic and atraumatic NOSE: Normal nasal mucous membranes and turbinates present EXTERNAL EAR: Yes external ears normal EXTERNAL AUDITORY CANAL: EAC's normal TYMPANIC MEMBRANE: TM's normal bilaterally Eye: COMMON NORMALS: Equal, round and reactive pupils present, EOMs intact bilaterally, conjunctivae normal and no scleral icterus CONJUNCTIVA: Yes conjunctivae normal PUPIL: Yes Equal, round and reactive pupils present Neck/C-Spine: COMMON NORMALS: full ROM, no lymphadenopathy, supple and no JVD Lymph: LYMPHATIC: no lymphadenopathy noted and no lymphedema noted Resp: COMMON NORMALS: normal respiratory effort, No retractions, No use of accessory muscles and clear to auscultation bilaterally AUSCULTATION: clear to auscultation bilaterally Cardio: COMMON NORMALS: no JVD, regular rate, regular rhythm and No murmurs present (Cardio) RATE: regular rate RHYTHM: regular rhythm GI: COMMON NORMALS: Soft to palpation and No hepatosplenomegaly present AUSCULTATION: Yes normoactive bowel sounds PALPATION: Yes Soft to palpation, No Tenderness to palpation present (GI), No Guarding due to palpation present (GI) and Yes No hepatosplenomegaly present Extremity: COMMON NORMALS: normal to inspection, capillary refill normal and no calf tenderness NARRATIVE EXTREMITY EXAM: 3+ edema lower extremities from the knees distal Neuro: SENSORIUM/ORIENTATION: Yes oriented to person, Yes oriented to place and Yes oriented to time Skin: COMMON NORMALS: no rashes or lesions noted GENERAL SKIN EXAM: no rashes or lesions noted Course Vital Signs: Vital signs: Vital Signs Temperature 98.1 F 07/27/19 16:03 Pulse Rate 76 07/27/19 22:07 Respiratory Rate 18 07/27/19 22:07 Blood Pressure 137/98 07/27/19 22:07 Pulse Oximetry 96 07/27/19 22:07 MDM - SOB/Dyspnea MDM Narrative: Medical decision making narrative: Care transferred to Dr. Morton at change of shift to see his notes for definitive diagnosis and a final disposition. Lab Data: Labs: Lab Results 07/27/19 07/27/19 07/27/19 Range/Units 16:50 16:50 16:50 WBC 8.4 (4.0-10.0) 10^3/ uL RBC 3.57 L (4.1-5.3) 10^6/u L Hgb 10.6 L (11.7-16.6) g/dL Hct 34.2 L (42.0-52.0) % MCV 95.8 H (80-94) fL MCH 29.7 (28.0-34.0) pg MCHC 31.0 (30.0-36.0) g/dL RDW 12.7 (12.1-15.1) % Plt Count 236 (130-400) 10^3/c mm MPV 11.0 H (7.4-10.4) fL Neut % (Auto) 71.0 % Lymph % (Auto) 18.1 % [place] % (Auto) 5.9 % Eos % (Auto) 4.1 % Baso % (Auto) 0.7 % Neut # (Auto) 6.0 (1.8-7.7) 10^3/u L Lymph # (Auto) 1.5 (0.8-4.8) 10^3/u L [place] # (Auto) 0.5 (0.2-0.9) 10^3/u L Eos # (Auto) 0.4 (0.0-0.8) 10^3/u L Baso # (Auto) 0.1 (0.0-0.1) 10^3/u L Nucleated RBC % (a uto) 0 % Nucleated RBCs # 0.0 /100WBC Sodium 139 (136-145) mmol/L Potassium 4.4 (3.5-5.1) mmol/L Chloride 98 (98-107) mmol/L Carbon Dioxide 23 (22-29) mmol/L Anion Gap 22.4 H (5-19) BUN 32 H (8-23) mg/dL Creatinine 2.4 H (0.7-1.2) mg/dL Glucose 115 (65-115) mg/dL Calculated Osmolal ity 286 (285-295) mOsm/k g Calcium 9.0 (8.5-10.5) mg/dL Magnesium 1.7 (1.7-2.3) mg/dL Total Bilirubin 0.3 (0.15-1.2) mg/dL AST 14 (0-40) U/L ALT 11 (0-41) U/L Alkaline Phosphata se 93 (40-130) IU/L Troponin T Baselin e 44 H (0-15) ng/L Troponin T 120 Min little shell tribe (0-15) ng/L Delta Troponin T (0-10) ABS# NT-Pro-B Natriuret Pep 1086 H (0-450) pg/mL Total Protein 7.3 (6.6-8.7) g/dL Albumin 4.4 (3.5-5.2) g/dL Globulin 2.9 (1.3-4.6) g/dL Urine Color (Yellow) Urine Appearance (CLEAR) Urine pH (5-7) Ur Specific Gravit y (1.005-1.030) Urine Protein (Negative) Urine Glucose (UA) (Normal) Urine Ketones (Negative) Urine Blood (Negative) Urine Nitrate (Negative) Urine Bilirubin (NEGATIVE) Urine Urobilinogen (Negative) mg/dL Ur Leukocyte Sarah ase (Negative) Urine RBC (0-2) /hpf Urine WBC (0-5) /hpf Ur Squamous Epith Cells (0-5) Urine Bacteria (NONE) Urine Mucus 07/27/19 07/27/19 Range/Units 17:31 18:43 WBC (4.0-10.0) 10^3/ uL RBC (4.1-5.3) 10^6/u L Hgb (11.7-16.6) g/dL Hct (42.0-52.0) % MCV (80-94) fL MCH (28.0-34.0) pg MCHC (30.0-36.0) g/dL RDW (12.1-15.1) % Plt Count (130-400) 10^3/c mm MPV (7.4-10.4) fL Neut % (Auto) % Lymph % (Auto) % [place] % (Auto) % Eos % (Auto) % Baso % (Auto) % Neut # (Auto) (1.8-7.7) 10^3/u L Lymph # (Auto) (0.8-4.8) 10^3/u L [place] # (Auto) (0.2-0.9) 10^3/u L Eos # (Auto) (0.0-0.8) 10^3/u L Baso # (Auto) (0.0-0.1) 10^3/u L Nucleated RBC % (a uto) % Nucleated RBCs # /100WBC Sodium (136-145) mmol/L Potassium (3.5-5.1) mmol/L Chloride (98-107) mmol/L Carbon Dioxide (22-29) mmol/L Anion Gap (5-19) BUN (8-23) mg/dL Creatinine (0.7-1.2) mg/dL Glucose (65-115) mg/dL Calculated Osmolal ity (285-295) mOsm/k g Calcium (8.5-10.5) mg/dL Magnesium (1.7-2.3) mg/dL Total Bilirubin (0.15-1.2) mg/dL AST (0-40) U/L ALT (0-41) U/L Alkaline Phosphata se (40-130) IU/L Troponin T Baselin e (0-15) ng/L Troponin T 120 Min little shell tribe 41.29 H (0-15) ng/L Delta Troponin T -2.71 L (0-10) ABS# NT-Pro-B Natriuret Pep (0-450) pg/mL Total Protein (6.6-8.7) g/dL Albumin (3.5-5.2) g/dL Globulin (1.3-4.6) g/dL Urine Color Yellow (Yellow) Urine Appearance Clear (CLEAR) Urine pH 6 (5-7) Ur Specific Gravit y 1.015 (1.005-1.030) Urine Protein 3+ H (Negative) Urine Glucose (UA) Trace H (Normal) Urine Ketones Negative (Negative) Urine Blood Neg (Negative) Urine Nitrate Negative (Negative) Urine Bilirubin Neg (NEGATIVE) Urine Urobilinogen Neg (Negative) mg/dL Ur Leukocyte Sarah ase Negative (Negative) Urine RBC 0-4 H (0-2) /hpf Urine WBC 15-25 H (0-5) /hpf Ur Squamous Epith Cells 0-4 H (0-5) Urine Bacteria Trace (NONE) Urine Mucus Trace Discharge Plan Discharge Clinical Impression: Acute UTI Chest pain Qualifiers: Chest pain type: unspecified Qualified Code(s): R07.9 - Chest pain, unspecified Condition: Stable Prescriptions: New cefdinir 300 mg capsule 300 mg PO Q12H 10 Days Qty: 20 RF: 0 No Action sulfamethoxazole-trimethoprim [Bactrim DS] 800-160 mg tablet 1 tab PO BID 7 Days Qty: 14 RF: 0 fluticasone propionate [Flonase Allergy Relief] 50 mcg/actuation spray,suspension 2 spray INTRANASAL DAILY Qty: 9.9 RF: 0 torsemide 20 mg Tablet 20 mg PO DAILY RF: 0 nitroglycerin 0.4 mg Tablet, Sublingual 0.4 mg SUBLINGUAL Q5M RF: 0 isosorbide mononitrate 30 mg Tablet Extended Release 24 Hr 30 mg PO DAILY RF: 0 gabapentin 100 mg Capsule 100 mg PO DAILY RF: 0 bicalutamide 50 mg Tablet 50 mg PO DAILY RF: 0 duloxetine 20 mg Capsule,Delayed Release(Dr/Ec) 20 mg PO DAILY RF: 0 clopidogrel 75 mg Tablet 75 mg PO DAILY RF: 0 insulin aspart U-100 5 units auto-injector See Rx Instructions .ROUTE .COMPLEX RF: 0 Lantus U-100 Insulin 100 unit/mL Solution 55 unit SUBCUT DAILY RF: 0 albuterol sulfate 90 mcg/actuation Hfa Aerosol Inhaler See Rx Instructions .ROUTE .COMPLEX RF: 0 capsaicin See Rx Instructions .ROUTE .COMPLEX RF: 0 hydrophilic cream Cream 1 applic TOPICAL DAILY RF: 0 atorvastatin 40 mg Tablet 20 mg PO BEDTIME Qty: 30 RF: 0 pantoprazole 40 mg Tablet,Delayed Release (Dr/Ec) 40 mg PO BID Qty: 60 RF: 0 metoprolol tartrate 25 mg Tablet 12.5 mg PO BID Qty: 60 RF: 0 aspirin [Adult Low Dose Aspirin] 81 mg tablet,delayed release (DR/EC) 81 mg PO DAILY Qty: 30 RF: 0 Discharge Orders: Discharge Order (Routine); Ordered 07/27/19 Ordered By: Bettye Martinez Referrals: Leslie Villalta FNP [Primary Care Provider] - 1-3 days Discharge Diet: Advance as tolerated Discharge Activity: Increase activity as tolerated Patient Instructions: Chest Pain (ED) Activity Restrictions/Additional Instructions: Please return to the ER immediately for any of the signs or symptoms listed on your discharge instruction sheets, worsening/changing of your symptoms, you are not getting better as quickly as expected, or for ANY other cause or concerns. I have advised and offered to admit you to the hospital for further cardiac evaluation including formal rule out and stress test but you have refused. Of course any type of heart problem can be life-threatening and you are at risk of or severe permanent disability by leaving without complete evaluation but you are more than welcome to return at any time. Please return to the ER immediately if you change your mind, your chest pain returns, you develop shortness of breath, you began to vomit, you develop a fever, or you simply change your mind. Be certain to follow-up with your doctor as soon as possible for recheck. Discharge Date/Time: 07/27/19 22:09 Sign Out Sign Out Data: Patient Sign Out occurred on 07/27/19 at 18:29. Patient's care was discussed, and care was transferred from to Bettye Martinez. Coding Level of Care Code ED Cigar Tobacco Rehandler for Chg Fwd Exam Comprehensive Documented by User: Bettye Martinez 07/28/19 00:11 HPI - SOB/Dyspnea General: Chief Complaint: Shortness of Breath/Dyspnea Stated Complaint: muscle cramps, sob, dizzy Time Seen by Provider: 07/27/19 16:35 PFSH ED PFSH: Medical History Anemia Aortic stenosis Chronic kidney disease, stage II (mild) COPD (chronic obstructive pulmonary disease) Coronary disease Coronary stent patent Dyslipidemia GERD (gastroesophageal reflux disease) Hypertension Insulin dependent diabetes mellitus Mild aortic stenosis Morbid obesity Neuroendocrine tumor Non-STEMI (non-ST elevated myocardial infarction) Pancreatic tumor Peripheral vascular disease With evidence of carotid artery disease especially on the right. Prostate cancer Renal mass Systolic and diastolic CHF, chronic Type 2 diabetes mellitus Venous stasis Shila-Hernandez syndrome Surgical History H/O prostatectomy Family History Other Hyperlipidemia Hypertension Denies family history of Cancer Social History Smoking and tobacco status: former smoker Caregiver/support person: Yes (Daughter) Household members: caregiver Housing: House Marital status: Single Course Vital Signs: Vital signs: Vital Signs Temperature 98.1 F 07/27/19 16:03 Pulse Rate 76 07/27/19 22:07 Respiratory Rate 18 07/27/19 22:07 Blood Pressure 137/98 07/27/19 22:07 Pulse Oximetry 96 07/27/19 22:07 MDM - SOB/Dyspnea MDM Narrative: Medical decision making narrative: 2018 -patient was inherited by me Bettye Martinez, at change of shift from Dr. Lomas. Please see his note for his history, physical exam and medical decision-making notes. Almost immediately upon me entering the room the patient states he wants his IV out and he wants something to eat and he wants to go home. He did review the findings of Dr. Key with me and states that he is no longer short of breath and claims to have not been significantly short of breath earlier. States his chest pain was mild and will not describe it in its location or its intensity or its character. He states his abdominal pain is gone he no longer feels sick to his stomach and he is adamant he wants to eat. In reviewing all of his labs they seem to be at baseline his hemoglobin is in his normal range as well as his creatinine and his troponins. His delta troponin is negative. The patient is very insistent that he is going home but nonetheless I reviewed the risks of going home without a full work-up for his chest pain including ultimately or severe permanent disability and he states he accepts these risk. He states he wished he has not come and he is ready to go home and wants to be discharged. I again informed the patient about the risks of leaving without a complete cardiac work-up including ultimately from heart attack but he states he accepts these risks and refuses any further work-up and wants to be discharged. The patient was warned but he was also welcomed to return. Lab Data: Attestation: I reviewed the patient's lab results. Labs: Lab Results 07/27/19 07/27/19 07/27/19 Range/Units 16:50 16:50 16:50 WBC 8.4 (4.0-10.0) 10^3/ uL RBC 3.57 L (4.1-5.3) 10^6/u L Hgb 10.6 L (11.7-16.6) g/dL Hct 34.2 L (42.0-52.0) % MCV 95.8 H (80-94) fL MCH 29.7 (28.0-34.0) pg MCHC 31.0 (30.0-36.0) g/dL RDW 12.7 (12.1-15.1) % Plt Count 236 (130-400) 10^3/c mm MPV 11.0 H (7.4-10.4) fL Neut % (Auto) 71.0 % Lymph % (Auto) 18.1 % [place] % (Auto) 5.9 % Eos % (Auto) 4.1 % Baso % (Auto) 0.7 % Neut # (Auto) 6.0 (1.8-7.7) 10^3/u L Lymph # (Auto) 1.5 (0.8-4.8) 10^3/u L [place] # (Auto) 0.5 (0.2-0.9) 10^3/u L Eos # (Auto) 0.4 (0.0-0.8) 10^3/u L Baso # (Auto) 0.1 (0.0-0.1) 10^3/u L Nucleated RBC % (a uto) 0 % Nucleated RBCs # 0.0 /100WBC Sodium 139 (136-145) mmol/L Potassium 4.4 (3.5-5.1) mmol/L Chloride 98 (98-107) mmol/L Carbon Dioxide 23 (22-29) mmol/L Anion Gap 22.4 H (5-19) BUN 32 H (8-23) mg/dL Creatinine 2.4 H (0.7-1.2) mg/dL Glucose 115 (65-115) mg/dL Calculated Osmolal ity 286 (285-295) mOsm/k g Calcium 9.0 (8.5-10.5) mg/dL Magnesium 1.7 (1.7-2.3) mg/dL Total Bilirubin 0.3 (0.15-1.2) mg/dL AST 14 (0-40) U/L ALT 11 (0-41) U/L Alkaline Phosphata se 93 (40-130) IU/L Troponin T Baselin e 44 H (0-15) ng/L Troponin T 120 Min [place] (0-15) ng/L Delta Troponin T (0-10) ABS# NT-Pro-B Natriuret Pep 1086 H (0-450) pg/mL Total Protein 7.3 (6.6-8.7) g/dL Albumin 4.4 (3.5-5.2) g/dL Globulin 2.9 (1.3-4.6) g/dL Urine Color (Yellow) Urine Appearance (CLEAR) Urine pH (5-7) Ur Specific Gravit y (1.005-1.030) Urine Protein (Negative) Urine Glucose (UA) (Normal) Urine Ketones (Negative) Urine Blood (Negative) Urine Nitrate (Negative) Urine Bilirubin (NEGATIVE) Urine Urobilinogen (Negative) mg/dL Ur Leukocyte Sarah ase (Negative) Urine RBC (0-2) /hpf Urine WBC (0-5) /hpf Ur Squamous Epith Cells (0-5) Urine Bacteria (NONE) Urine Mucus 07/27/19 07/27/19 Range/Units 17:31 18:43 WBC (4.0-10.0) 10^3/ uL RBC (4.1-5.3) 10^6/u L Hgb (11.7-16.6) g/dL Hct (42.0-52.0) % MCV (80-94) fL MCH (28.0-34.0) pg MCHC (30.0-36.0) g/dL RDW (12.1-15.1) % Plt Count (130-400) 10^3/c mm MPV (7.4-10.4) fL Neut % (Auto) % Lymph % (Auto) % [place] % (Auto) % Eos % (Auto) % Baso % (Auto) % Neut # (Auto) (1.8-7.7) 10^3/u L Lymph # (Auto) (0.8-4.8) 10^3/u L [place] # (Auto) (0.2-0.9) 10^3/u L Eos # (Auto) (0.0-0.8) 10^3/u L Baso # (Auto) (0.0-0.1) 10^3/u L Nucleated RBC % (a uto) % Nucleated RBCs # /100WBC Sodium (136-145) mmol/L Potassium (3.5-5.1) mmol/L Chloride (98-107) mmol/L Carbon Dioxide (22-29) mmol/L Anion Gap (5-19) BUN (8-23) mg/dL Creatinine (0.7-1.2) mg/dL Glucose (65-115) mg/dL Calculated Osmolal ity (285-295) mOsm/k g Calcium (8.5-10.5) mg/dL Magnesium (1.7-2.3) mg/dL Total Bilirubin (0.15-1.2) mg/dL AST (0-40) U/L ALT (0-41) U/L Alkaline Phosphata se (40-130) IU/L Troponin T Baselin e (0-15) ng/L Troponin T 120 Min little shell tribe 41.29 H (0-15) ng/L Delta Troponin T -2.71 L (0-10) ABS# NT-Pro-B Natriuret Pep (0-450) pg/mL Total Protein (6.6-8.7) g/dL Albumin (3.5-5.2) g/dL Globulin (1.3-4.6) g/dL Urine Color Yellow (Yellow) Urine Appearance Clear (CLEAR) Urine pH 6 (5-7) Ur Specific Gravit y 1.015 (1.005-1.030) Urine Protein 3+ H (Negative) Urine Glucose (UA) Trace H (Normal) Urine Ketones Negative (Negative) Urine Blood Neg (Negative) Urine Nitrate Negative (Negative) Urine Bilirubin Neg (NEGATIVE) Urine Urobilinogen Neg (Negative) mg/dL Ur Leukocyte Sarah ase Negative (Negative) Urine RBC 0-4 H (0-2) /hpf Urine WBC 15-25 H (0-5) /hpf Ur Squamous Epith Cells 0-4 H (0-5) Urine Bacteria Trace (NONE) Urine Mucus Trace EKG Data^: EKG 1: Attestation: I personally reviewed and interpreted this EKG as follows: EKG Interpretation Date: 07/27/19 Interpretation: Normal sinus rhythm at 88 beats a minute, left axis deviation, no blocks, mild interventricular conduction delay, no acute ST-T wave changes. EKG 2: Attestation: I personally reviewed and interpreted this EKG as follows: EKG Interpretation Date: 07/27/19 EKG interpretation time: 19:43 Interpretation: Normal sinus rhythm at 81 beats a minute,, interventricular conduction delay, PACs, unchanged from previous. Discharge Plan Discharge Clinical Impression: Acute UTI Chest pain Qualifiers: Chest pain type: unspecified Qualified Code(s): R07.9 - Chest pain, unspecified Condition: Stable Prescriptions: New cefdinir 300 mg capsule 300 mg PO Q12H 10 Days Qty: 20 RF: 0 No Action sulfamethoxazole-trimethoprim [Bactrim DS] 800-160 mg tablet 1 tab PO BID 7 Days Qty: 14 RF: 0 fluticasone propionate [Flonase Allergy Relief] 50 mcg/actuation spray,suspension 2 spray INTRANASAL DAILY Qty: 9.9 RF: 0 torsemide 20 mg Tablet 20 mg PO DAILY RF: 0 nitroglycerin 0.4 mg Tablet, Sublingual 0.4 mg SUBLINGUAL Q5M RF: 0 isosorbide mononitrate 30 mg Tablet Extended Release 24 Hr 30 mg PO DAILY RF: 0 gabapentin 100 mg Capsule 100 mg PO DAILY RF: 0 bicalutamide 50 mg Tablet 50 mg PO DAILY RF: 0 duloxetine 20 mg Capsule,Delayed Release(Dr/Ec) 20 mg PO DAILY RF: 0 clopidogrel 75 mg Tablet 75 mg PO DAILY RF: 0 insulin aspart U-100 5 units auto-injector See Rx Instructions .ROUTE .COMPLEX RF: 0 Lantus U-100 Insulin 100 unit/mL Solution 55 unit SUBCUT DAILY RF: 0 albuterol sulfate 90 mcg/actuation Hfa Aerosol Inhaler See Rx Instructions .ROUTE .COMPLEX RF: 0 capsaicin See Rx Instructions .ROUTE .COMPLEX RF: 0 hydrophilic cream Cream 1 applic TOPICAL DAILY RF: 0 atorvastatin 40 mg Tablet 20 mg PO BEDTIME Qty: 30 RF: 0 pantoprazole 40 mg Tablet,Delayed Release (Dr/Ec) 40 mg PO BID Qty: 60 RF: 0 metoprolol tartrate 25 mg Tablet 12.5 mg PO BID Qty: 60 RF: 0 aspirin [Adult Low Dose Aspirin] 81 mg tablet,delayed release (DR/EC) 81 mg PO DAILY Qty: 30 RF: 0 Discharge Orders: Discharge Order (Routine); Ordered 07/27/19 Ordered By: Bettye Martinez Referrals: Leslie Villalta FNP [Primary Care Provider] - 1-3 days Discharge Diet: Advance as tolerated Discharge Activity: Increase activity as tolerated Patient Instructions: Chest Pain (ED) Activity Restrictions/Additional Instructions: Please return to the ER immediately for any of the signs or symptoms listed on your discharge instruction sheets, worsening/changing of your symptoms, you are not getting better as quickly as expected, or for ANY other cause or concerns. I have advised and offered to admit you to the hospital for further cardiac evaluation including formal rule out and stress test but you have refused. Of course any type of heart problem can be life-threatening and you are at risk of or severe permanent disability by leaving without complete evaluation but you are more than welcome to return at any time. Please return to the ER immediately if you change your mind, your chest pain returns, you develop shortness of breath, you began to vomit, you develop a fever, or you simply change your mind. Be certain to follow-up with your doctor as soon as possible for recheck. Discharge Date/Time: 07/27/19 22:09 Sign Out Sign Out Data: Patient Sign Out occurred on 07/27/19 at 18:29. Patient's care was discussed, and care was transferred from to Bettye Martinez. Coding Level of Care Code ED Cigar Tobacco Rehandler for [place] Fwd Exam Comprehensive
[2019-07-27 16:59] LABS: Basophils # 0.1 10^3/uL (0.0-0.1); Basophils % 0.7 %; Eosinophils # 0.4 10^3/uL (0.0-0.8); Eosinophils % 4.1 %; Hematocrit 34.2 % (42.0-52.0); Hemoglobin 10.6 g/dL (11.7-16.6); Lymphocytes # 1.5 10^3/uL (0.8-4.8); Lymphocytes % 18.1 %; Mean Corpuscular Hemoglobin 29.7 pg (28.0-34.0); Mean Corpuscular Volume 95.8 fL (80-94); Monocytes # 0.5 10^3/uL (0.2-0.9); Monocytes % 5.9 %; Nucleated Red Blood Cells % 0 %; Platelet Count 236 10^3/cmm (130-400); Red Blood Count 3.57 10^6/uL (4.1-5.3); Red Cell Distribution Width 12.7 % (12.1-15.1); White Blood Count 8.4 10^3/uL (4.0-10.0)
--- NOTE | 2019-07-27 17:13 | ECG_ITS ---
[facility] ED Test Date: 2019-07-27 Pat Name: Marco Antonio Valadez Department: Room: Gender: Male Cash Applications Analyst: : 1940 Requested By: Lisandro Doe Order Number: [id number] Foreign MD: Maribel Infante M.D. Measurements Intervals [place] Rate: 88 P: 56 AK: 200 QRS: -36 QRSD: 130 T: 55 QT: 390 QTc: 472 Interpretive Statements SINUS RHYTHM WITH FREQUENT SUPRAVENTRICULAR PREMATURE COMPLEXES MARKED LEFT AXIS DEVIATION [QRS AXIS < -30] MODERATE INTRAVENTRICULAR CONDUCTION DELAY [110+ ms QRS DURATION] Compared to ECG 03/12/2019 17:03:10 No significant changes Electronically Signed On 07-28-2019 13:41:25 CDT by Maribel Infante M.D. [id number]
[2019-07-27 17:54] LABS: Alanine Aminotransferase 11 U/L (0-41); Albumin Level 4.4 g/dL (3.5-5.2); Alkaline Phosphatase 93 IU/L (40-130); Anion Gap 22.4 (5-19); Aspartate Amino Transferase 14 U/L (0-40); Blood Urea Nitrogen 32 mg/dL (8-23); Carbon Dioxide 23 mmol/L (22-29); Chloride 98 mmol/L (98-107); Globulin 2.9 g/dL (1.3-4.6); Glucose 115 mg/dL (65-115); Magnesium 1.7 mg/dL (1.7-2.3); NT Pro B Type Natriuretic Pept 1086 pg/mL (0-450); Osmolality Calculated 286 mOsm/kg (285-295); Potassium 4.4 mmol/L (3.5-5.1); Sodium 139 mmol/L (136-145); Total Bilirubin 0.3 mg/dL (0.15-1.2); Total Protein 7.3 g/dL (6.6-8.7)
[2019-07-27 17:56] LABS: Troponin(5th) Baseline 44 ng/L (0-15)
[2019-07-27 18:02] LABS: Specific Gravity, Urine 1.015 (1.005-1.030); Urine Appearance Clear (CLEAR); Urine Color Yellow (Yellow); pH Urine 6 (5-7)
[2019-07-27 18:03] LABS: Add Urine Microscopic? YES; Bilirubin Urine Neg (NEGATIVE); Blood Urine Neg (Negative); Glucose Urine UA Trace (Normal); Ketones Urine Negative (Negative); Leukocyte Esterase Urine Negative (Negative); Nitrate Urine Negative (Negative); Protein Urine 3+ (Negative); Urobilinogen Urine Neg (Negative)
--- NOTE | 2019-07-27 18:04 | CTR_ITS ---
PROCEDURE INFORMATION: Exam: CT Chest Without Contrast Exam date and time: 07/27/2019 6:14 PM Age: 79 years old Clinical indication: Other: Muscle cramps; Shortness of breath and other: Ble swelling; Prior surgery; Surgery type: Prostate; Additional info: Abd pain TECHNIQUE: Imaging protocol: Computed tomography of the chest without contrast. Radiation optimization: All CT scans at this facility use at least one of these dose optimization techniques: automated exposure control; mA and/or kV adjustment per patient size (includes targeted exams where dose is matched to clinical indication); or iterative reconstruction. COMPARISON: No relevant prior studies available. RADIATION DOSE METRICS: Total DLP (mGy-cm): 2877.43 FINDINGS: Lungs: There is mild ground-glass opacity in the lung bases compatible with mild pneumonitis or atelectasis left greater than right. There is no dense lobar consolidation. Pleural space: Unremarkable. No pneumothorax. No pleural effusion. Heart: There is mild cardiomegaly. Trace pericardial fluid versus pericardial thickening is noted. Coronary artery calcifications are noted. Mediastinal space: No mural hematoma or dissection is identified. Aorta: In in the ascending thoracic aorta at is enlarged measuring 4.5 cm. The mid descending thoracic aorta is 3.5 cm. Transverse aortic arch measures 3.7 cm. Lymph nodes: There are multiple calcified granulomas and calcified mediastinal lymph nodes. No pathologic adenopathy. Bones/joints: Chronic appearing mild compression fracture deformities are noted in the thoracic spine. No acute fracture is identified. Soft tissues: Unremarkable. IMPRESSION: 1. There is mild ground-glass opacity in the lung bases compatible with mild pneumonitis or atelectasis left greater than right. 2. Aneurysmal dilatation of the thoracic aorta. No hematoma or dissection is identified. PROCEDURE INFORMATION: Exam: CT Abdomen And Pelvis Without Contrast Exam date and time: 07/27/2019 6:14 PM Age: 79 years old Clinical indication: Other: Muscle cramps; Shortness of breath and other: Ble swelling; Prior surgery; Surgery type: Prostate; Additional info: Abd pain TECHNIQUE: Imaging protocol: Computed tomography of the abdomen and pelvis without contrast. Radiation optimization: All CT scans at this facility use at least one of these dose optimization techniques: automated exposure control; mA and/or kV adjustment per patient size (includes targeted exams where dose is matched to clinical indication); or iterative reconstruction. COMPARISON: No relevant prior studies available. RADIATION DOSE METRICS: Total DLP (mGy-cm): 2877.43 FINDINGS: Mediastinal space: A small hiatal hernia is present. Liver: Unremarkable.No mass. Gallbladder and bile ducts: The gallbladder is distended with fluid. No stones or wall thickening is identified. Pancreas: The pancreas is mildly displaced by the large mass in the jayla hepatis but the pancreas itself is unremarkable. Spleen: The spleen is normal. Calcified granulomas are noted in the spleen. Adrenals: Normal. No mass. Kidneys and ureters: There is no evidence of hydronephrosis. There is no evidence of renal calcifications. There are bilateral renal simple cysts. The largest on the left protrudes in the upper pole left kidney measuring 5.8 cm in size. The largest on the right is in the midpole right kidney and measures 4.4 cm in size. Additional bilateral renal cortical hypodensities measuring over 1 cm in size are simple cysts. There is inflammatory perinephric stranding. Stomach and bowel: There is abundant colonic stool but no impaction. There is no evidence of intestinal perforation or obstruction. There is no evidence of colitis/diverticulitis. Appendix: A normal appendix is identified. Intraperitoneal space: Unremarkable. No free air. No significant fluid collection. Vasculature: Unremarkable.No abdominal aortic aneurysm. Lymph nodes: There is a large soft tissue density mass or lymph node anterior to the inferior vena cava image 33 that measures 8.9 x 7.3 by 9.5 cm in size. No retroperitoneal or pelvic adenopathy. There are probable calcified lymph nodes near the head of the pancreas. Bladder: There is nonspecific bladder wall thickening. This may be related to incomplete distention. Reproductive: The prostate demonstrates nonspecific parenchymal calcifications. Bones/joints: Osteopenia and diffuse severe degenerative changes in the spine are noted. No bony destructive lesion or acute fracture. Soft tissues: Tiny bilateral fat filled inguinal hernias are noted. There is a fat-containing umbilical hernia. CT/CT chest abd pel wo con IMPRESSION: 1. No bowel thickening or inflammatory changes. There is abundant colonic stool but no impaction. 2. Bilateral renal simple cysts. No hydronephrosis. 3. Large soft tissue density mass or enlarged lymph node in the jayla hepatis that measures 9.5 cm in greatest dimension. No additional adenopathy. COMMENTS: Consistent with the [employer] [employer]'s Incidental Findings Committee white paper (J Am Yi Radiol 2018): Any incidental renal lesion less than 1.0 cm or classified as too small to characterize, or any incidental cystic renal lesion characterized as simple-appearing, is likely benign. No follow-up imaging is recommended for these lesions per consensus recommendations based on imaging criteria. Radiation Dose CTDIVOL = (mGy): DLP = 2877.43~2877.43 (mGy-cm)
[2019-07-27 18:06] LABS: RBC Urine 0-4 /hpf (0-2); WBC Urine 15-25 /hpf (0-5)
[2019-07-27 18:07] LABS: Add Urine Culture? No; Bacteria Urine TRACE; Mucus Urine TRACE; Squamous Epithelial Cell Urine 0-4 (0-5)
[2019-07-27 19:02] LABS: Troponin 5 2HR 41.29 ng/L (0-15)
[2019-07-27 19:04] LABS: Troponin 5 2HR Delta -2.71 ABS# (0-10)
--- NOTE | 2019-07-27 19:13 | ECG_ITS ---
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 Measurements Intervals [place] Rate: 81 P: -72 [place]: 136 QRS: -30 QRSD: 115 T: 61 QT: 397 QTc: 462 Interpretive Statements Normal sinus rhythm with supraventricular ectopics BORDERLINE LEFT AXIS DEVIATION [QRS AXIS < -20] MODERATE INTRAVENTRICULAR CONDUCTION DELAY [110+ ms QRS DURATION] ABNORMAL RHYTHM ECG Compared to ECG 07/27/2019 17:47:51 Sinus rhythm with frequent supraventricular ectopics are present Electronically Signed On 07-28-2019 19:27:29 CDT by Alla Aguirre M.D. [id number]
[2019-07-27 21:07] VITALS: BP 147/84; PULSE 83; RESP 18; O2SAT 97
[2019-07-27] MEDS: cefTRIAXone 1,000 MG in sodium chloride 0.9% (plus) 50 ML 100 MG IV (21:08)
[2019-07-27 21:35] VITALS: BP 121/64; PULSE 102; RESP 18; O2SAT 96
[2019-07-27 22:07] VITALS: BP 137/98; PULSE 76; RESP 18; O2SAT 96
== END 2019-07-27 22:09 ==
PROVIDERS: Emergency Medicine; Family Medicine; Emergency Provider Emergency Medicine; PCP Nurse Practitioner
DX: R07.9 Chest pain, unspecified (principal); N39.0 Urinary tract infection, site not specified; Z79.02 Long term (current) use of antithrombotics/antiplatelets; Z79.82 Long term (current) use of aspirin; Z79.4 Long term (current) use of insulin; I12.9 Hypertensive chronic kidney disease with stage 1 through stage 4 chronic kidney disease, or unspecified chronic kidney disease; E11.22 Type 2 diabetes mellitus with diabetic chronic kidney disease; N18.2 Chronic kidney disease, stage 2 (mild); J44.9 Chronic obstructive pulmonary disease, unspecified; I25.10 Atherosclerotic heart disease of native coronary artery without angina pectoris; E78.5 Hyperlipidemia, unspecified; I25.2 Old myocardial infarction; Z85.46 Personal history of malignant neoplasm of prostate; Z87.891 Personal history of nicotine dependence
CPT/HCPCS: 12345; 36415; 71045; 71250; 74176; 80053; 81001; 83735; 83880; 84484; 85025; 93005; 96365; 99283; 99284; J0696

== ENCOUNTER 2019-08-02 06:44 | Outpatient (RCR) | payer OTHER, SELFPAY ==
[2019-07-19 16:06] LABS: Basophils # 0.1 10^3/uL (0.0-0.1); Basophils % 0.8 %; Eosinophils # 0.4 10^3/uL (0.0-0.8); Eosinophils % 4.7 %; Lymphocytes # 1.4 10^3/uL (0.8-4.8); Lymphocytes % 17.9 %; Mean Corpuscular HGB Conc 31.3 g/dL (30.0-36.0); Mean Corpuscular Hemoglobin 28.8 pg (28.0-34.0); Mean Corpuscular Volume 92.2 fL (80-94); Mean Platelet Volume 11.9 fL (7.4-10.4); Monocytes # 0.5 10^3/uL (0.2-0.9); Monocytes % 6.9 %; Neutrophils # 5.3 10^3/uL (1.8-7.7); Neutrophils % 69.3 %; Nucleated Red Blood Cells % 0 %; Platelet Count 242 10^3/cmm (130-400); Red Blood Count 3.47 10^6/uL (4.1-5.3); Red Cell Distribution Width 12.6 % (12.1-15.1); White Blood Count 7.7 10^3/uL (4.0-10.0)
[2019-07-19 16:42] LABS: Alanine Aminotransferase 10 U/L (0-41); Albumin Level 3.9 g/dL (3.5-5.2); Alkaline Phosphatase 87 IU/L (40-130); Anion Gap 19.2 (5-19); Aspartate Amino Transferase 14 U/L (0-40); Blood Urea Nitrogen 27 mg/dL (8-23); Calcium 9.5 mg/dL (8.5-10.5); Carbon Dioxide 23 mmol/L (22-29); Chloride 100 mmol/L (98-107); Globulin 3.9 g/dL (1.3-4.6); Glucose 172 mg/dL (65-115); Osmolality Calculated 285 mOsm/kg (285-295); Potassium 5.2 mmol/L (3.5-5.1); Sodium 137 mmol/L (136-145); Total Bilirubin 0.3 mg/dL (0.15-1.2); Total Protein 7.8 g/dL (6.6-8.7)
[2019-07-22 20:30] LABS: Chromogranin A 433 ng/mL (25-140)
[2019-07-23 16:15] LABS: Serotonin Whole Blood 23 ng/mL (56-244)
[2019-07-23 17:41] LABS: 24 Hour Urine Volume 2900 mL/24 h; 5-HIAA, 24 Hour Urine 9.9 mg/24 h (<=6.0)
[2019-08-02] MEDS: octreotide LAR depot 20 mg Kit 40 MG IM (10:15)
--- NOTE | 2019-08-03 06:58 | ONC FU_ITS ---
Dr. Allen Patient Follow-Up Note Patient: Marco Antonio Valadez Unit #: [id number]: 1940 Dicatated By: Jeyson Allen M.D.Date of Visit:Aug 02, 2019 Onc Med Follow-up/Prog Note Chief Complaint: Pancreatic neuroendocrine tumor. 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 He has a history of Shila-Hernandez syndrome, and he has a history of prostate cancer. He reports a prior history of prostate cancer treated with cryoablation in 1999, in [facility]. 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 More recently, he presented with progressive central abdominal pain, diarrhea and B12 deficiency. He underwent further workup at [facility]. Endoscopic ultrasound on 01/12/2014 showed 7.1 cm mass around the head of the pancreas but did not appear to be part of the liver, pancreas or duodenum. There was significant enlarged peripancreatic lymphadenopathy up to 2.1 cm as well as enlarged lymph nodes in the mediastinum and the lower paraesophageal area. Fine needle aspiration of the dominant mass revealed low-grade neuroendocrine carcinoma with immunohistochemistry positive for synaptophysin, chromogranin A and MIB1. Mitotic count was reported extremely low. CT scan on 01/20/2015 without contrast showed dominant mass in the head of the pancreas. He was deemed to be a poor surgical candidate. He was then followed by Dr. Donis in [facility]. 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 Baseline octreotide scan on 04/28/2014 revealed activity in the tip of the liver and abdominal central activity in the head of the pancreas and transverse colon; but CT correlate was not available for the comparison. He began on serial somatostatin injections monthly with cycle 3 delivered on 07/21/2014. Chromogranin A level was 158. 5- HIAA levels were not available. He was first seen by Dr. Elliott on 08/22/2014. He reported no further abdominal pain, diarrhea, or flushing. In general his symptoms had markedly improved since initiation of injections. Restaging PET/CT on 11/19/2014 showed a single enlarging mass measuring 7.8 cm with SUV 4.8, centered at the head of the pancreas. Switching therapy to TKI was discussed, but he eventually decided against it. Sandostatin treatment was continued, as he had symptomatic improvement wtih it. His other medical illnesses include obesity, hypertension, hyperlipidemia, type II diabetes, coronary artery disease, GERD, and degenerative arthritis. He has chronic kidney disease, and he also has chronic anemia. He has had previous coronary angioplasty/stent placement. He has had treatment for prostate cancer which included cryosurgery in 1999 and orchiectomy 2000. He is a nonsmoker. INTERIM HISTORY: Restaging CT of the abdomen and pelvis on 06/05/2015 showed no changes since PET/CT in November 2014, but there was new subacute right 6th rib fracture. As such, he has continued monthly Sandostatin LAR injections. He has continued follow-up with the [facility] in [place]. [facility] showed no focal areas of increased activity to suggest osseous metastatic disease. It also showed a focus of increased activity in the right anterolateral sixth rib appeared consistent with remote fracture. Also noted were degenerative changes in the left shoulder and in the mid to lower thoracic spine, knees, and feet. Restaging CT of the abdomen/pelvis on 12/03/2016 showed unchanged large pancreatic head mass measuring 8.4 x 7.5 CM. Bilateral low-attenuation renal lesions appeared unchanged. On 02/26/2017 he was seen in the emergency room with shortness of breath and productive cough. Chest x-ray showed poor inspiration with no acute findings. He tested negative for influenza. He was prescribed an albuterol inhaler. A noncontrast CT of the abdomen/pelvis on 03/03/2017 showed stable mass in the head of the pancreas measuring 8.0 x 6.3 x 8.7 cm. Low-attenuation masses within each kidney appeared stable. The liver appeared unremarkable. A bone scan on 08/21/2017 showed a nonspecific focus of increased activity to the right of the midline in the lower sacrum. Pelvic x-rays were recommended for further evaluation. A [facility]aging [facility] 08[facility]26[facility]2017 show a dominant area of uptake in the region of the jayla hepatis or head of the pancreas, felt to be consistent with abdi metastasis or primary carcinoid tumor. There was suggestion of an additional area of uptake near the inferior right lobe of the liver, but it also was noted that it could potentially represent a lesion within the hepatic flexure of the colon. There were no other areas of abnormal uptake on that study. Repeat CT scans of the abdomen/pelvis on 03/17/2018 showed large pancreatic head mass, stable in size measuring 8.5 x 7.6 cm. A solid-appearing left upper pole renal lesion appeared stable from the previous study in November 2017 but increased in size compared to previous studies in 2016. As of February 2018 there was further decrease in his hemoglobin to 9.5 g. His subsequent serum iron studies appear to be consistent with iron deficiency with transferrin saturation 15.3% and ferritin 66.0 ng/mL. He then began a trial of oral iron supplementation with ferrous sulfate, which he did not tolerate due to constipation. In June 2018 he was given parenteral iron replacement with 2 infusions of Injectafer. During follow-up there was some increase in the hemoglobin/hematocrit levels, but he remained mildly anemic. He continued treatment with Sandostatin LAR. Restaging CT of the abdomen/pelvis on 10/02/2018 showed persistent, bulky, oval-shaped soft tissue mass arising within or adjacent to the head of the pancreas measuring 7.8 x 9 x 7.1 cm compared to 7.2 x 8.5 x 7.4 cm on the April 2018 study. The overall appearance was similar to the prior studies from April 2018 and November 2017. Bilateral low-density renal lesions appeared stable and appeared to be most likely cysts. Given those findings, he continue treatment with somatostatin analog. He is seen for a scheduled visit. He had recently been seen in the emergency room complaining of weakness and shortness of breath. He was found to have urinary tract infection, treated with cefdinir. He has since then been feeling a little better, though he says that he has no energy. He has very limited activity. His ECOG score is 3. He is getting assistance through the NH which includes a nursing visit and housekeeping services 3 days a week, and with that he has been able to continue living by himself. He has good appetite. He has lost a little weight. He does not have fever, night sweats, or flushing spells. He complains that his nose runs when he eats. He has shortness of breath with any effort. He does not complain of cough. He says he has very little chest pain. He has not been having nausea or acid reflux, but he does complain that he has a lot of gas. His stools are typically loose, but usually just once a day. About every 2 weeks or so we will have some diarrhea. He has not been aware of any blood in his stool. He has frequent urination and he does have some urgency with it. He has pain in his knees and back. Recently he also has been having pain in his left shoulder. He has some positional dizziness. He has numbness in his feet and also some in his hands, but less. Medications: Acetaminophen-Codeine 1 Tablet (of 300-30 mg) Oral q 6 hours PRN, Aspirin 1 Tablet (of 81 mg) Oral daily, Atorvastatin Calcium 0.5 Tablet (of 80 mg) Oral daily, Bicalutamide 1 Tablet (of 50 mg) Oral daily, Calcium + D 2 Tablet Oral daily, Clopidogrel Bisulfate 1 (75 mg) Tablet Oral daily, Clotrimazole (1 %) Cream Topical Take as Directed, DULoxetine HCl 1 Capsule (of 20 mg) Capsule Delayed Release Particles Oral daily, Famotidine 1 Tablet (of 20 mg) Oral b.i.d., Gabapentin 1 (100 mg) Capsule Oral at bedtime, Insulin Glargine (100 Units/mL) Subcutaneous at bedtime PRN, Isosorbide Mononitrate ER 1 Tablet (of 30 mg) Tablet SR 24 HR Oral daily, Lantus Subcutaneous, Loperamide HCl 2 Capsule (of 2 mg) Oral PRN, Nitroglycerin Tablet, sublingual Sublingual PRN, NovoLOG (100 Units/mL) Subcutaneous Take as Directed, Omeprazole 1 Capsule (of 40 mg) Capsule Delayed Release Oral daily, Torsemide 1 Tablet (of 20 mg) Oral daily Allergies: IV dye used for chemical stress test and metal steel . Review of Systems: Constitutional - He has no energy. His activity is very limited. He does get a nursing visit and housekeeping services through the NH 3 times a week, and with that assistance he has continued to live independently. His appetite is good. He has lost a little weight. He does not have fever, night sweats, or flushing spells. ECOG score is 3, ENMT - He complains that his nose runs when he eats. No mouth sores. No sore throat or difficulty swallowing, Hematologic/Lymphatic - He has easy bruising, Respiratory - He has shortness of breath with any effort. No cough. No pleuritic pain or hemoptysis, Cardiovascular - He has very little chest pain. No palpitations, Gastrointestinal - No nausea or vomiting and no acid reflux, but he does complain that he has a lot of gas. He stools are generally loose. He has diarrhea aobut every couple of weeks. No blood in the stool or black stools, Genitourinary (M) - No dysuria or hematuria. He has urinary frequency. No urgency or incontinence, Musculoskeletal - He has pain in his knees and back. Recently his left shoulder has been hurting, Integumentary - No skin rash, Neurologic - No headache. He has dizziness, which is positional. He has numbness in his feet and some in his hands. No other focal neurologic symptoms, Psychiatric - No anxiety or depression. No insomnia. Vital Signs: Performed on Aug 02, 2019 09:33 Height - 68.00 in Weight - 328.0 lbs (LOW) BSA - 2.52 sq.m BMI - 49.87 (HIGH) Temperature - 97.6 F (LOW) Pulse - 89 /min Respiration - 26 /min BP - 148/84 mm(hg) (HIGH) O2 Sat - 93 % (LOW) Pain - 0 Physical Examination: Constitutional - He appears generally weak, Eyes - Sclerae nonicteric. Conjunctivae clear, ENMT - No lesions noted in the oral cavity, Hematologic/Lymphatic - No cervical, clavicular, or axillary adenopathy, Respiratory - Lungs are clear with some decrease in air movement bilaterally, Cardiovascular - Heart rhythm is irregular. There is a II/ systolic murmur. There is no gallop or rub noted, Abdomen - Distended. Liver and spleen are not enlarged. There is no abdominal mass or ascites noted and there is no inguinal adenopathy, Extremities - He has 2 to 3+ lower extremity edema. There are purpuric lesions on both arms, Neurologic - No focal neurologic deficits noted. Lab/Imaging: Test performed on Jul 19, 2019 14:40 Serotonin, Serum 23 ng/mL Sodium 137 mmol/L Potassium 5.2 mmol/L Chloride 100 mmol/L CO2 23 mmol/L Anion Gap 19.2 BUN 27 mg/dL Creatinine 2.2 mg/dL Cr Clearance (Est) 56.8700 mL/min Glucose 172 mg/dL Calcium 9.5 mg/dL Protein, Total 7.8 g/dL Albumin 3.9 g/dL Globulin 3.9 g/dL Bilirubin, Total 0.3 mg/dL ALT (SGPT) 10 U/L AST (SGOT) 14 U/L Alkaline Phosphatase 87 IU/L WBC 7.7 10 3/uL RBC 3.47 10 6/uL HGB 10.0 g/dL HCT 32.0 % MCV 92.2 fL MCH 28.8 pg MCHC 31.3 g/dL RDW 12.6 % Platelet Count 242 10 3/cmm MPV 11.9 fL Neutrophils 5.3 10 3/uL Lymphocytes 1.4 10 3/uL Monocytes 0.5 10 3/uL Eosinophils 0.4 10 3/uL Basophils 0.1 10 3/uL Neutrophil % 69.3 % Lymphocyte % 17.9 % Monocyte % 6.9 % Eosinophil % 4.7 % Basophils % 0.8 % NRBC % 0 % Chromogranin A 433 ng/mL Impression: 1. 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 He was found to have a stage IV low-grade neuroendocrine carcinoma involving a large mass at the level of the pancreas with possible involvement in mediastinal and peripancreatic lymph nodes, though the latter was not confirmed by subsequent PET imaging. He was deemed not to be a surgical candidate. 2. His symptoms of abdominal pain, diarrhea, and flushing improved with initiation of Sandostatin in April of 2014. 3. Restaging PET/CT on 11/19/2014 showed single enlarging mass 7.8 cm, SUV 4.8 centered in the head of the pancreas. The options of switching to targeted treatment with everolimus or sunitinib were discussed, but the patient declined. 4. He has since continued monthly Sandostatin LAR injections, and he has remained stable clinically. Follow-up contrast enhanced CT abdomen/pelvis in May 2015 showed no significant change in the pancreatic mass compared to the PET/CT study in November 2014. There was no other evidence of disease progression within the abdomen/pelvis. His other medical doses include: 5. Obesity. 6. Hypertension. 7. Hyperlipidemia. 8. Type II diabetes. 9. Coronary artery disease. 10. Degenerative arthritis. 11. He also has been undergoing treatment for prostate cancer. Bone scan in July 2015 was negative for metastatic disease. The symptoms associated with his neuroendocrine cancer have been well controlled on the Sandostatin LAR. His surveillance CT scans as of February 2017 had shown no evidence of disease progression. Bone scan on 08/21/2017 showed a nonspecific focus of increased activity in the lower sacrum to the right of the midline. A restaging octreotide scan on 08/26/2017 showed a dominant area of uptake in the region of the jayla hepatis or head of the pancreas, consistent with abdi metastasis or primary carcinoid tumor. There was suggestion of an additional area of uptake involving either the inferior right hepatic lobe of the liver or the hepatic flexure of the colon. His restaging CT scans on 12/03/2017 showed unchanged pancreatic head mass measuring 8.4 x 7.5 cm. During follow-up there was no evidence of progression of the neuroendocrine tumor, and any associated symptoms appeared to be adequately managed with the Sandostatin. His CT scan from March 2018 showed no change in the pancreatic mass, but there was an increase in the size of the left renal mass compared to studies in 2017, which was felt to be suspicious for renal cell carcinoma. As of February 2018 there was some further decrease in his hemoglobin/hematocrit levels. His serum iron studies in March appear consistent with iron deficiency. He was unable to tolerate an oral iron supplement due to severe constipation. As such, in June 2018 he was given parenteral iron replacement with 2 infusions of Injectafer. During subsequent follow-up there was some increase in the hemoglobin/hematocrit levels, but he remained moderately anemic. He has continued to have very marginal performance status. However, thus far there has been no obvious progression of the pancreatic neuroendocrine tumor. Plan: He will continue treatment with Sandostatin LAR 30 mg by intramuscular injection monthly. He will be scheduled for follow-up visit in 3 months. I will plan to repeat his CT abdomen/pelvis with that visit. In the meantime, he apparently is [facility] assume for monitoring the renal mass. Signed By: Jeyson Allen M.D. <<Signature on File>>
== END 2019-08-10 23:59 | disposition home or self-care (01) ==
LOC: ONCMED 06:44
PROVIDERS: PCP Nurse Practitioner; Visit Provider Internal Medicine Medical Oncology
DX: C7A.8 Other malignant neuroendocrine tumors (principal); D50.9 Iron deficiency anemia, unspecified; E66.01 Morbid (severe) obesity due to excess calories; I10 Essential (primary) hypertension; E16.4 Increased secretion of gastrin; E78.5 Hyperlipidemia, unspecified; K21.9 Gastro-esophageal reflux disease without esophagitis; E11.21 Type 2 diabetes mellitus with diabetic nephropathy; I25.119 Atherosclerotic heart disease of native coronary artery with unspecified angina pectoris; M19.90 Unspecified osteoarthritis, unspecified site; R53.82 Chronic fatigue, unspecified; Z85.46 Personal history of malignant neoplasm of prostate; Z79.899 Other long term (current) drug therapy; Z79.818 Long term (current) use of other agents affecting estrogen receptors and estrogen levels; Z91.19 Patient's noncompliance with other medical treatment and regimen
CPT/HCPCS: 80053; 83497; 84260; 85025; 86316; 96372; 99214; J2353

== ENCOUNTER 2019-09-01 07:14 | Outpatient (RCR) | payer OTHER, SELFPAY ==
[2019-09-01] MEDS: octreotide LAR depot 20 mg Kit 40 MG IM (14:05)
== END 2019-09-10 23:59 | disposition home or self-care (01) ==
LOC: ONCMED 07:14
PROVIDERS: PCP Nurse Practitioner; Visit Provider Internal Medicine Medical Oncology
DX: C7A.8 Other malignant neuroendocrine tumors (principal)
CPT/HCPCS: 96372; J2353

== ENCOUNTER 2019-09-17 13:49 | Emergency (ER) | payer OTHER, MEDICARE, SELFPAY ==
[2019-09-17 13:51] VITALS: BP 180/100; PULSE 87; RESP 18; TEMP 37.1; O2SAT 98; BMI 48.7
--- NOTE | 2019-09-17 13:54 | XRR_ITS ---
PROCEDURE INFORMATION: Exam: XR Abdomen, 1 View Exam date and time: 09/17/2019 2:18 PM Age: 79 years old Clinical indication: Constipation; Abdominal pain; Generalized; Additional info: Abd pain/constipation TECHNIQUE: Imaging protocol: XR of the abdomen. Views: Frontal supine view of the abdomen. 1 View. COMPARISON: CT chest abd pel wo con 07/27/2019 6:18 PM FINDINGS: Gastrointestinal tract: Normal. No bowel dilation. Bones/joints: Unremarkable. XR/XR [id number] IMPRESSION: No acute findings.
--- NOTE | 2019-09-17 14:01 | ECG_ITS ---
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 Measurements Intervals [place] Rate: 83 P: 62 [place]: 159 QRS: -33 QRSD: 122 T: 51 QT: 385 QTc: 455 Interpretive Statements SINUS RHYTHM LEFT AXIS DEVIATION [QRS AXIS < -30] MODERATE INTRAVENTRICULAR CONDUCTION DELAY [110+ ms QRS DURATION] Compared to ECG 07/27/2019 19:43:21 No significant changes Electronically Signed On 09-17-2019 18:05:39 CDT by Omer Hernandez M.D. [id number]
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
--- NOTE | 2019-09-17 14:39 | PC.NURSE ---
patient has 2 very very large formed stools
[2019-09-17 14:45] LABS: Basophils # 0.1 10^3/uL (0.0-0.1); Basophils % 0.5 %; Eosinophils # 0.1 10^3/uL (0.0-0.8); Eosinophils % 0.6 %; Hematocrit 30.3 % (42.0-52.0); Hemoglobin 9.4 g/dL (11.7-16.6); Lymphocytes # 0.6 10^3/uL (0.8-4.8); Lymphocytes % 6.3 %; Mean Corpuscular Hemoglobin 29.3 pg (28.0-34.0); Mean Corpuscular Volume 94.4 fL (80-94); Mean Platelet Volume 11.2 fL (7.4-10.4); Monocytes # 0.4 10^3/uL (0.2-0.9); Monocytes % 3.9 %; Neutrophils # 8.34 10^3/uL (1.8-7.7); Neutrophils % 88.4 %; Nucleated Red Blood Cells % 0 %; Platelet Count 269 10^3/cmm (130-400); Red Blood Count 3.21 10^6/uL (4.1-5.3); Red Cell Distribution Width 12.3 % (12.1-15.1); White Blood Count 9.5 10^3/uL (4.0-10.0)
[2019-09-17 14:58] VITALS: BP 160/95; PULSE 87; RESP 18; O2SAT 95
[2019-09-17 15:06] LABS: Alanine Aminotransferase 6 U/L (0-41); Albumin Level 4.1 g/dL (3.5-5.2); Alkaline Phosphatase 90 IU/L (40-130); Anion Gap 16.9 (5-19); Aspartate Amino Transferase 14 U/L (0-40); Blood Urea Nitrogen 38 mg/dL (8-23); Calcium 9.3 mg/dL (8.5-10.5); Carbon Dioxide 23 mmol/L (22-29); Chloride 102 mmol/L (98-107); Globulin 3.6 g/dL (1.3-4.6); Glucose 219 mg/dL (65-115); Osmolality Calculated 288 mOsm/kg (285-295); Potassium 4.9 mmol/L (3.5-5.1); Sodium 137 mmol/L (136-145); Total Bilirubin 0.2 mg/dL (0.15-1.2); Total Protein 7.7 g/dL (6.6-8.7)
== END 2019-09-17 15:12 | disposition home or self-care (01) ==
PROVIDERS: Emergency Provider Family Medicine; PCP Nurse Practitioner
DX: K59.00 Constipation, unspecified (principal); D64.9 Anemia, unspecified; Z79.02 Long term (current) use of antithrombotics/antiplatelets; Z79.4 Long term (current) use of insulin; Z79.82 Long term (current) use of aspirin; Z87.891 Personal history of nicotine dependence; I13.0 Hypertensive heart and chronic kidney disease with heart failure and stage 1 through stage 4 chronic kidney disease, or unspecified chronic kidney disease; E11.22 Type 2 diabetes mellitus with diabetic chronic kidney disease; N18.2 Chronic kidney disease, stage 2 (mild); I50.42 Chronic combined systolic (congestive) and diastolic (congestive) heart failure; J44.9 Chronic obstructive pulmonary disease, unspecified; E78.5 Hyperlipidemia, unspecified; I25.2 Old myocardial infarction; Z85.46 Personal history of malignant neoplasm of prostate
CPT/HCPCS: 12345; 36415; 74018; 80053; 85025; 93005; 93010; 99282; 99283

== ENCOUNTER 2019-10-04 06:16 | Outpatient (CLI) | payer OTHER, SELFPAY ==
[2019-10-04] MEDS: octreotide LAR depot 20 mg Kit 40 MG IM (14:20)
== END 2019-10-04 06:17 | disposition home or self-care (01) ==
PROVIDERS: PCP Nurse Practitioner; Visit Provider Internal Medicine Medical Oncology
DX: C7A.8 Other malignant neuroendocrine tumors (principal); D50.8 Other iron deficiency anemias; E11.21 Type 2 diabetes mellitus with diabetic nephropathy; I25.119 Atherosclerotic heart disease of native coronary artery with unspecified angina pectoris; R53.82 Chronic fatigue, unspecified; Z85.46 Personal history of malignant neoplasm of prostate
CPT/HCPCS: 96372; J2353

== ENCOUNTER 2019-10-20 10:12 | Outpatient (CLI) | payer OTHER, SELFPAY ==
--- NOTE | 2019-10-20 10:22 | US_ITS ---
WS: [id number] ULTRASOUND RENAL TECHNIQUE: Ultrasound examination of both kidneys. CLINICAL INFORMATION: FOLLOW UP ON CHRONIC ILLNESS ER FOLLOW UP FOR UTI COMPARISON: None. FINDINGS: Incidentally noted is hydropic gallbladder with sludge. Hypoechoic solid mass involving the right hepatic lobe/jayla hepatis and head of the pancreas better seen on prior CT. This measures 7.1 x 7.4 CM. Incidental bilateral renal cysts. RIGHT: Right kidney is normal in size and appearance. Echogenicity: Normal. Cortical thickness: 1.6 cm; Normal. Hydronephrosis: None. Perinephric fluid: None. Right kidney measures: 12.5 cm x 6.0 cm x 6.3 cm. LEFT: Left kidney is normal in size and appearance. Echogenicity: Normal. Cortical thickness: 1.2 cm; Normal. Hydronephrosis: None. Perinephric fluid: None. Left kidney measures: 11.9 cm x 4.6 cm x 6.0 cm. Normal visualized aorta. Normal bladder. US/US renal BI* [id number] IMPRESSION: 1. Simple appearing bilateral renal cysts. Largest cyst right kidney measuring 3.6 x 4.2 cm 2. Bilateral renal cortical atrophy. 3. Hydropic gallbladder with sludge incidentally noted. 4. Partially visualized solid hypoechoic mass in the right hepatic lobe/jayla hepatis near the head of the pancreas. This was seen on the prior CT July 2019. This could followed up with CT abdomen pelvis
== END 2019-10-20 10:13 | disposition home or self-care (01) ==
LOC: RAD 10:16
PROVIDERS: PCP Nurse Practitioner; Visit Provider Nurse Practitioner
DX: N39.0 Urinary tract infection, site not specified (principal); N28.1 Cyst of kidney, acquired; N26.1 Atrophy of kidney (terminal)
CPT/HCPCS: 76770

== ENCOUNTER 2019-10-28 13:12 | Outpatient (CLI) | payer OTHER, SELFPAY ==
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
[2019-10-28 14:06] LABS: Basophils % 0.6 %; Eosinophils # 0.2 10^3/uL (0.0-0.8); Eosinophils % 2.7 %; Hematocrit 30.7 % (42.0-52.0); Hemoglobin 9.6 g/dL (11.7-16.6); Lymphocytes # 1.2 10^3/uL (0.8-4.8); Lymphocytes % 17.3 %; Mean Corpuscular HGB Conc 31.3 g/dL (30.0-36.0); Mean Corpuscular Hemoglobin 29.4 pg (28.0-34.0); Mean Corpuscular Volume 93.9 fL (80-94); Mean Platelet Volume 10.8 fL (7.4-10.4); Monocytes # 0.4 10^3/uL (0.2-0.9); Monocytes % 5.6 %; Neutrophils # 5.24 10^3/uL (1.8-7.7); Neutrophils % 73.5 %; Nucleated Red Blood Cells % 0 %; Platelet Count 233 10^3/cmm (130-400); Red Blood Count 3.27 10^6/uL (4.1-5.3); Red Cell Distribution Width 12.7 % (12.1-15.1); White Blood Count 7.1 10^3/uL (4.0-10.0)
[2019-10-28 14:26] LABS: Alanine Aminotransferase 10 U/L (0-41); Alkaline Phosphatase 80 IU/L (40-130); Anion Gap 15.5 (5-19); Aspartate Amino Transferase 12 U/L (0-40); Blood Urea Nitrogen 49 mg/dL (8-23); Calcium 8.3 mg/dL (8.5-10.5); Carbon Dioxide 23 mmol/L (22-29); Chloride 99 mmol/L (98-107); Ferritin 309 ng/mL (30-400); Globulin 3.8 g/dL (1.3-4.6); Glucose 208 mg/dL (65-115); Iron 41 ug/dL (59-158); Lactate Dehydrogenase 180 U/L (135-225); Osmolality Calculated 295 mOsm/kg (285-295); Percent Saturation 18.4 % (20-50); Potassium 4.5 mmol/L (3.5-5.1); Sodium 133 mmol/L (136-145); Total Bilirubin 0.2 mg/dL (0.15-1.2); Total Iron Binding Capacity 222 mcg/dl; Total Protein 7.8 g/dL (6.6-8.7); Unsaturated Iron Binding 181 ug/dL (112-347)
[2019-11-01 16:58] LABS: Chromogranin A 395 ng/mL (25-140)
[2019-11-04 21:23] LABS: Serotonin Whole Blood 20 ng/mL (56-244)
== END 2019-10-28 13:13 | disposition home or self-care (01) ==
PROVIDERS: PCP Nurse Practitioner; Visit Provider Internal Medicine Medical Oncology
DX: D3A.8 Other benign neuroendocrine tumors (principal); N28.89 Other specified disorders of kidney and ureter; I51.7 Cardiomegaly
CPT/HCPCS: 36415; 74176; 80053; 82668; 82728; 83540; 83550; 83615; 84260; 85025; 86316

== ENCOUNTER 2019-11-04 14:21 | Outpatient (CLI) | payer OTHER, SELFPAY ==
[2019-11-04] MEDS: octreotide LAR depot 20 mg Kit 40 MG IM (15:10)
[2019-11-04] MEDS: ferric carboxy (IVPB) 750 MG in sodium chloride 0.9% (100 ml) 100 ML 345 MG IV (15:14)
--- NOTE | 2019-11-04 18:39 | ONC FU_ITS ---
Dr. Allen Patient Follow-Up Note Patient: Marco Antonio Valadez Unit #: [id number]: 1940 Dicatated By: Jeyson Allen M.D.Date of Visit:Nov 04, 2019 Onc Med Follow-up/Prog Note Chief Complaint: Pancreatic neuroendocrine tumor. 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 He has a history of Shila-Hernandez syndrome, and he has a history of prostate cancer. He reports a prior history of prostate cancer treated with cryoablation in 1999, in [facility]. 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 More recently, he presented with progressive central abdominal pain, diarrhea and B12 deficiency. He underwent further workup at [facility]. Endoscopic ultrasound on 01/12/2014 showed 7.1 cm mass around the head of the pancreas but did not appear to be part of the liver, pancreas or duodenum. There was significant enlarged peripancreatic lymphadenopathy up to 2.1 cm as well as enlarged lymph nodes in the mediastinum and the lower paraesophageal area. Fine needle aspiration of the dominant mass revealed low-grade neuroendocrine carcinoma with immunohistochemistry positive for synaptophysin, chromogranin A and MIB1. Mitotic count was reported extremely low. CT scan on 01/20/2015 without contrast showed dominant mass in the head of the pancreas. He was deemed to be a poor surgical candidate. He was then followed by Dr. Donis in [facility]. 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 Baseline octreotide scan on 04/28/2014 revealed activity in the tip of the liver and abdominal central activity in the head of the pancreas and transverse colon; but CT correlate was not available for the comparison. He began on serial somatostatin injections monthly with cycle 3 delivered on 07/21/2014. Chromogranin A level was 158. 5- HIAA levels were not available. He was first seen by Dr. Elliott on 08/22/2014. He reported no further abdominal pain, diarrhea, or flushing. In general his symptoms had markedly improved since initiation of injections. Restaging PET/CT on 11/19/2014 showed a single enlarging mass measuring 7.8 cm with SUV 4.8, centered at the head of the pancreas. Switching therapy to TKI was discussed, but he eventually decided against it. Sandostatin treatment was continued, as he had symptomatic improvement wtih it. His other medical illnesses include obesity, hypertension, hyperlipidemia, type II diabetes, coronary artery disease, GERD, and degenerative arthritis. He has chronic kidney disease, and he also has chronic anemia. He has had previous coronary angioplasty/stent placement. He has had treatment for prostate cancer which included cryosurgery in 1999 and orchiectomy 2000. He is a nonsmoker. INTERIM HISTORY: Restaging CT of the abdomen and pelvis on 06/05/2015 showed no changes since PET/CT in November 2014, but there was new subacute right 6th rib fracture. As such, he has continued monthly Sandostatin LAR injections. He has continued follow-up [facility] [place]. [facility] showed no focal areas of increased activity to suggest osseous metastatic disease. It also showed a focus of increased activity in the right anterolateral sixth rib appeared consistent with remote fracture. Also noted were degenerative changes in the left shoulder and in the mid to lower thoracic spine, knees, and feet. Restaging CT of the abdomen/pelvis on 12/03/2016 showed unchanged large pancreatic head mass measuring 8.4 x 7.5 CM. Bilateral low-attenuation renal lesions appeared unchanged. On 02/26/2017 he was seen in the emergency room with shortness of breath and productive cough. Chest x-ray showed poor inspiration with no acute findings. He tested negative for influenza. He was prescribed an albuterol inhaler. A noncontrast CT of the abdomen/pelvis on 03/03/2017 showed stable mass in the head of the pancreas measuring 8.0 x 6.3 x 8.7 cm. Low-attenuation masses within each kidney appeared stable. The liver appeared unremarkable. A bone scan on 08/21/2017 showed a nonspecific focus of increased activity to the right of the midline in the lower sacrum. Pelvic x-rays were recommended for further evaluation. A restaging [facility] 08[facility]26[facility]2017 show a dominant area of uptake in the region of the jayla hepatis or head of the pancreas, felt to be consistent with abdi metastasis or primary carcinoid tumor. There was suggestion of an additional area of uptake near the inferior right lobe of the liver, but it also was noted that it could potentially represent a lesion within the hepatic flexure of the colon. There were no other areas of abnormal uptake on that study. Repeat CT scans of the abdomen/pelvis on 03/17/2018 showed large pancreatic head mass, stable in size measuring 8.5 x 7.6 cm. A solid-appearing left upper pole renal lesion appeared stable from the previous study in November 2017 but increased in size compared to previous studies in 2016. As of February 2018 there was further decrease in his hemoglobin to 9.5 g. His subsequent serum iron studies appear to be consistent with iron deficiency with transferrin saturation 15.3% and ferritin 66.0 ng/mL. He then began a trial of oral iron supplementation with ferrous sulfate, which he did not tolerate due to constipation. In June 2018 he was given parenteral iron replacement with 2 infusions of Injectafer. During follow-up there was some increase in the hemoglobin/hematocrit levels, but he remained mildly anemic. He continued treatment with Sandostatin LAR. Restaging CT of the abdomen/pelvis on 10/02/2018 showed persistent, bulky, oval-shaped soft tissue mass arising within or adjacent to the head of the pancreas measuring 7.8 x 9 x 7.1 cm compared to 7.2 x 8.5 x 7.4 cm on the April 2018 study. The overall appearance was similar to the prior studies from April 2018 and November 2017. Bilateral low-density renal lesions appeared stable and appeared to be most likely cysts. Given those findings, he continue treatment with somatostatin analog. His restaging CT abdomen/pelvis on 10/28/2019 showed stable appearance of the large, well-circumscribed soft tissue mass in the right abdomen, contiguous and inseparable from the pancreatic head. It measured 7.9 x 9.1 x 8.0 cm. Prominent iliac chain lymph nodes measuring up to 1.5 cm also showed long-term stability. There were indeterminate bilateral renal masses. He is seen for a scheduled visit. He continues to have very limited activity. He says he is holding his chair down. His ECOG score is 3. Appetite is too good. He has not had fever, flushing episodes, or night sweating. He complains that his nose runs when he eats and he also complains that his voice is not there at times. He has trouble talking. He has occasional cough productive of yellow sputum. He has shortness of breath. He does not complain of chest pain. He has chronic constipation. He has urinary frequency and urgency. He reports having pain at the ends of his toes. He has no other joint or bone pain. He has numbness/tingling in his feet. Medications: Acetaminophen-Codeine 1 Tablet (of 300-30 mg) Oral q 6 hours PRN, Aspirin 1 Tablet (of 81 mg) Oral daily, Atorvastatin Calcium 0.5 Tablet (of 80 mg) Oral daily, Bicalutamide 1 Tablet (of 50 mg) Oral daily, Calcium + D 2 Tablet Oral daily, Clopidogrel Bisulfate 1 (75 mg) Tablet Oral daily, Clotrimazole (1 %) Cream Topical Take as Directed, DULoxetine HCl 1 Capsule (of 20 mg) Capsule Delayed Release Particles Oral daily, Famotidine 1 Tablet (of 20 mg) Oral b.i.d., Gabapentin 1 (100 mg) Capsule Oral at bedtime, Insulin Glargine (100 Units/mL) Subcutaneous at bedtime PRN, Isosorbide Mononitrate ER 1 Tablet (of 30 mg) Tablet SR 24 HR Oral daily, Lantus Subcutaneous, Loperamide HCl 2 Capsule (of 2 mg) Oral PRN, Nitroglycerin Tablet, sublingual Sublingual PRN, NovoLOG (100 Units/mL) Subcutaneous Take as Directed, Omeprazole 1 Capsule (of 40 mg) Capsule Delayed Release Oral daily, Torsemide 1 Tablet (of 20 mg) Oral daily Allergies: IV dye used for chemical stress test and metal steel . Review of Systems: Constitutional - He has very limited activity. In his words he is holding his chair down . Appetite is too good. He does not have fever, flushing episodes, or night sweating. ECOG score is 3, ENMT - He complains that his nose runs when he eats. He has not had sore mouth or throat and he has not had difficulty swallowing, but he does complain that his voice is not there all the time, and he has having difficulty talking, Hematologic/Lymphatic - He has easy bruising, Respiratory - He has shortness of breath. He has cough productive of yellow sputum. No pleuritic pain or hemoptysis, Cardiovascular - No angina pain. No palpitations, Gastrointestinal - No nausea or vomiting. No heartburn or acid reflux. He has chronic constipation. No blood in the stool or black stools, Genitourinary (M) - No dysuria or hematuria. He has urinary frequency and urgency. No incontinence, Musculoskeletal - He reports having pain at the ends of his toes, Integumentary - No skin rash, Neurologic - No headache or dizziness.He has numbness/tingling in his feet, Psychiatric - No anxiety or depression. No insomnia. Vital Signs: Performed on Nov 04, 2019 14:29 Height - 68.00 in Weight - 327.0 lbs (LOW) BSA - 2.52 sq.m BMI - 49.72 (HIGH) Temperature - 97.9 F (LOW) Pulse - 79 /min Respiration - 26 /min BP - 155/76 mm(hg) (HIGH) O2 Sat - 97 % Pain - 7 Physical Examination: Constitutional - He has very limited mobiltiy. He does not appear acutely ill, Eyes - Sclerae nonicteric. Conjunctivae clear, ENMT - No lesions noted in the oral cavity, Hematologic/Lymphatic - No cervical, clavicular, or axillary adenopathy, Respiratory - Lungs are clear with some decrease in air movement bilaterally, Cardiovascular - Heart rhythm is irregular. There is a II/ systolic murmur. There is no gallop or rub noted, Abdomen - Distended. Liver and spleen are not enlarged. There is no abdominal mass or ascites noted and there is no inguinal adenopathy, Extremities - He has chronic lower extremity edema, 2 to 3+. There are small purpuric lesions on both arms, Neurologic - No focal neurologic deficits noted. Lab/Imaging: Test performed on Jul 19, 2019 14:40 Serotonin, Serum 23 ng/mL Sodium 137 mmol/L Potassium 5.2 mmol/L Chloride 100 mmol/L CO2 23 mmol/L Anion Gap 19.2 BUN 27 mg/dL Creatinine 2.2 mg/dL Cr Clearance (Est) 56.8700 mL/min Glucose 172 mg/dL Calcium 9.5 mg/dL Protein, Total 7.8 g/dL Albumin 3.9 g/dL Globulin 3.9 g/dL Bilirubin, Total 0.3 mg/dL ALT (SGPT) 10 U/L AST (SGOT) 14 U/L Alkaline Phosphatase 87 IU/L WBC 7.7 10 3/uL RBC 3.47 10 6/uL HGB 10.0 g/dL HCT 32.0 % MCV 92.2 fL MCH 28.8 pg MCHC 31.3 g/dL RDW 12.6 % Platelet Count 242 10 3/cmm MPV 11.9 fL Neutrophils 5.3 10 3/uL Lymphocytes 1.4 10 3/uL Monocytes 0.5 10 3/uL Eosinophils 0.4 10 3/uL Basophils 0.1 10 3/uL Neutrophil % 69.3 % Lymphocyte % 17.9 % Monocyte % 6.9 % Eosinophil % 4.7 % Basophils % 0.8 % NRBC % 0 % Chromogranin A 433 ng/mL Impression: 1. 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 He was found to have a stage IV low-grade neuroendocrine carcinoma involving a large mass at the level of the pancreas with possible involvement in mediastinal and peripancreatic lymph nodes, though the latter was not confirmed by subsequent PET imaging. He was deemed not to be a surgical candidate. 2. His symptoms of abdominal pain, diarrhea, and flushing improved with initiation of Sandostatin in April of 2014. 3. Restaging PET/CT on 11/19/2014 showed single enlarging mass 7.8 cm, SUV 4.8 centered in the head of the pancreas. The options of switching to targeted treatment with everolimus or sunitinib were discussed, but the patient declined. 4. He has since continued monthly Sandostatin LAR injections, and he has remained stable clinically. Follow-up contrast enhanced CT abdomen/pelvis in May 2015 showed no significant change in the pancreatic mass compared to the PET/CT study in November 2014. There was no other evidence of disease progression within the abdomen/pelvis. His other medical doses include: 5. Obesity. 6. Hypertension. 7. Hyperlipidemia. 8. Type II diabetes. 9. Coronary artery disease. 10. Degenerative arthritis. 11. He also has been undergoing treatment for prostate cancer. Bone scan in July 2015 was negative for metastatic disease. The symptoms associated with his neuroendocrine cancer have been well controlled on the Sandostatin LAR. His surveillance CT scans as of February 2017 had shown no evidence of disease progression. Bone scan on 08/21/2017 showed a nonspecific focus of increased activity in the lower sacrum to the right of the midline. A restaging octreotide scan on 08/26/2017 showed a dominant area of uptake in the region of the jayla hepatis or head of the pancreas, consistent with abdi metastasis or primary carcinoid tumor. There was suggestion of an additional area of uptake involving either the inferior right hepatic lobe of the liver or the hepatic flexure of the colon. His restaging CT scans on 12/03/2017 showed unchanged pancreatic head mass measuring 8.4 x 7.5 cm. During follow-up there was no evidence of progression of the neuroendocrine tumor, and any associated symptoms appeared to be adequately managed with the Sandostatin. His CT scan from March 2018 showed no change in the pancreatic mass, but there was an increase in the size of the left renal mass compared to studies in 2017, which was felt to be suspicious for renal cell carcinoma. As of February 2018 there was some further decrease in his hemoglobin/hematocrit levels. His serum iron studies in March appear consistent with iron deficiency. He was unable to tolerate an oral iron supplement due to severe constipation. As such, in June 2018 he was given parenteral iron replacement with 2 infusions of Injectafer. During subsequent follow-up there was some increase in the hemoglobin/hematocrit levels, but he remained moderately anemic. He has continued to have very marginal performance status. His restaging CT scans continue to show stable mass in the area of the pancreatic head. There are indeterminate renal masses. He remains moderately anemic, and he again has low transferrin saturation, consistent with iron deficiency. He recently has been complaining of some voice change. He otherwise appears stable clinically. Plan: He will be given Sandostatin LAR 30 mg by intramuscular injection. In addition, he will be given parenteral iron replacement today with Injectafer. He will have a second infusion of Injectafer with his next scheduled Sandostatin injection, which will be in 1 month. He will be scheduled for follow-up visit in 3 months. In the meantime, he apparently is being [facility]. Signed By: Jeyson Allen M.D. <<Signature on File>>
== END 2019-11-04 14:22 | disposition home or self-care (01) ==
LOC: ONCMED 14:22
PROVIDERS: PCP Nurse Practitioner; Visit Provider Internal Medicine Medical Oncology
DX: C7A.8 Other malignant neuroendocrine tumors (principal); Z85.46 Personal history of malignant neoplasm of prostate; E16.4 Increased secretion of gastrin; N28.89 Other specified disorders of kidney and ureter; D64.9 Anemia, unspecified; E66.9 Obesity, unspecified; I10 Essential (primary) hypertension; E78.5 Hyperlipidemia, unspecified; E11.9 Type 2 diabetes mellitus without complications; I25.10 Atherosclerotic heart disease of native coronary artery without angina pectoris; M19.90 Unspecified osteoarthritis, unspecified site; Z79.899 Other long term (current) drug therapy; Z68.42 Body mass index [BMI] 45.0-49.9, adult
CPT/HCPCS: 96365; 96372; 99214; J1439; J2353

== ENCOUNTER 2019-12-06 06:32 | Outpatient (CLI) | payer OTHER, SELFPAY ==
[2019-12-06] MEDS: ferric carboxy (IVPB) 750 MG in sodium chloride 0.9% (100 ml) 100 ML 345 MG IV (12:10)
[2019-12-06] MEDS: octreotide LAR depot 20 mg Kit 40 MG IM (12:30)
== END 2019-12-06 06:33 | disposition home or self-care (01) ==
LOC: ONCMED 06:34
PROVIDERS: PCP Nurse Practitioner; Visit Provider Internal Medicine Medical Oncology
DX: C7A.8 Other malignant neuroendocrine tumors (principal); D50.8 Other iron deficiency anemias; E11.21 Type 2 diabetes mellitus with diabetic nephropathy; I25.119 Atherosclerotic heart disease of native coronary artery with unspecified angina pectoris; R53.82 Chronic fatigue, unspecified; Z85.46 Personal history of malignant neoplasm of prostate; Z91.19 Patient's noncompliance with other medical treatment and regimen
CPT/HCPCS: 96365; 96372; J1439; J2353

== ENCOUNTER 2020-01-10 08:39 | Outpatient (CLI) | payer OTHER, SELFPAY ==
[2020-01-10] MEDS: octreotide LAR depot 20 mg Kit 40 MG IM (15:00)
== END 2020-01-10 08:40 | disposition home or self-care (01) ==
LOC: ONCMED 01-11 09:11
PROVIDERS: PCP Nurse Practitioner; Visit Provider Internal Medicine Medical Oncology
DX: C7A.8 Other malignant neuroendocrine tumors (principal); D50.8 Other iron deficiency anemias; E11.21 Type 2 diabetes mellitus with diabetic nephropathy; I25.119 Atherosclerotic heart disease of native coronary artery with unspecified angina pectoris; R53.82 Chronic fatigue, unspecified; Z85.46 Personal history of malignant neoplasm of prostate
CPT/HCPCS: 96372; J2353

== ENCOUNTER 2020-01-27 14:22 | Outpatient (CLI) | payer OTHER, SELFPAY | END 2020-01-27 14:23 | disposition home or self-care (01) | LOC: WOUND 14:25 | PROVIDERS: PCP Nurse Practitioner; Visit Provider Thoracic Surgery (Cardiothoracic Vascular Surgery) | DX: E11.621 Type 2 diabetes mellitus with foot ulcer (principal); L97.512 Non-pressure chronic ulcer of other part of right foot with fat layer exposed | CPT/HCPCS: 11042; G0463; L3260 ==

== ENCOUNTER 2020-02-01 14:15 | Outpatient (CLI) | payer OTHER, SELFPAY | END 2020-02-01 14:16 | disposition home or self-care (01) | LOC: WOUND 14:15 | PROVIDERS: PCP Nurse Practitioner; Visit Provider Nurse Practitioner Family | DX: E11.621 Type 2 diabetes mellitus with foot ulcer (principal); L97.512 Non-pressure chronic ulcer of other part of right foot with fat layer exposed | CPT/HCPCS: 11042 ==

== ENCOUNTER 2020-02-02 10:18 | Outpatient (CLI) | payer OTHER, MEDICARE, SELFPAY ==
--- NOTE | 2020-02-02 10:41 | XRR_ITS ---
PROCEDURE INFORMATION: Exam: XR Right Foot Complete Exam date and time: 02/02/2020 10:45 AM Age: 80 years old Clinical indication: Condition or disease; Other: Pain/redness/nonhealing ulcer TECHNIQUE: Imaging protocol: XR Right foot. Views: 3 or more views. COMPARISON: No relevant prior studies available. FINDINGS: Bones/joints: Osteopenia Spur formation at the insertion of the Achilles' tendon and plantar aponeurosis. hindfoot-midfoot and midfoot-forefoot articulations are intact. metatarsals and the phalanges without an acute process. subtalar joint and the tibiotalar joint appears normal. severe degenerative changes at the first metatarsal phalangeal joint. Hallux valgus deformity. Soft tissues: Normal. XR/XR foot RT min 3V* [id number] IMPRESSION: 1. No acute process. No discrete evidence of osteomyelitis. Apparent skin ulceration at the level of the 1st metatarsophalangeal joint medially. 2. Spur formation at the insertion of the Achilles' tendon and plantar aponeurosis. 3. Severe degenerative changes at the first metatarsal phalangeal joint. Hallux valgus deformity.
--- NOTE | 2020-02-02 10:41 | USCV_ITS ---
Marco Antonio Valadez Age: 80 Gender: M : 1940 Exam Date: 02/02/2020 11:06 Ordering Phys: Hunter Willis MD (Andy) ([email or web address]) Technologist: Tawnya Escoto [place] [facility] [place]: HISTORY: Non healing ulcer PROCEDURES: Bilateral duplex Venous Insufficiency study of the Deep and Superficial systems was carried out according to normal protocol with the patient in supine positon for deep system and dependent position for the superficial system. FINDINGS: There is no evidence of bilateral deep vein thrombosis. No evidence of superficial thrombosis in the bilateral saphenous system. No evidence of reflux was noted in the bilateral deep venous system. No venous reflux noted in the bilateral greater saphenous vein. No venous reflux noted in the bilateral small saphenous vein. There is a right superficial vessel in the upper leg that demonstrates reflux. Vessel is very superficial and is unlikely candidate for ablation Echolucent areas were noted in the subcutaneous tissue at the below- knee areas bilaterally CONCLUSIONS No evidence of DVT in the above-mentioned identifiable veins. No significant venous reflux were noted in the deep or superficial veins bilaterally. There is an accessory vein in the above-knee area on the right side with significant reflex appears to be not amenable for intervention, since it is very superficial. Near normal caliber veins bilaterally. The venous dimensions and the depth from the surface are as mentioned above Revised report on the study from 02/02/2020 Dr Alla Aguirre MD [facility] (Electronically Signed) Final Date: 02 February 2020 20:13 Amended: 14 February 2020 09:05 C
== END 2020-02-02 10:19 | disposition home or self-care (01) ==
PROVIDERS: PCP Nurse Practitioner; Visit Provider Thoracic Surgery (Cardiothoracic Vascular Surgery)
DX: M79.605 Pain in left leg (principal); M79.604 Pain in right leg; M79.672 Pain in left foot; M79.671 Pain in right foot; L53.9 Erythematous condition, unspecified; L97.929 Non-pressure chronic ulcer of unspecified part of left lower leg with unspecified severity; L97.919 Non-pressure chronic ulcer of unspecified part of right lower leg with unspecified severity
CPT/HCPCS: 73630; 93970

== ENCOUNTER 2020-02-02 10:38 | Outpatient (CLI) | payer OTHER, MEDICARE, SELFPAY ==
[2020-02-03 15:02] LABS: Alternaria Alternata (M6) Ige <0.10 kU/L; Alternaria Class 0; Bermuda Class 0/1; Bermuda Grass (G2) Ige 0.16 kU/L; Cat Dander (E1) Ige <0.10 kU/L; Cat Dander Class 0; D. Farinae Class 0; Dermatophagoides Class 0; Dermatophagoides Farinae (D2) <0.10 kU/L; Dermatophagoides Pteronyssinus <0.10 kU/L; Dog Dander (E5) Ige <0.10 kU/L; Dog Dander Class 0; Elm (T8) Ige 0.17 kU/L; Elm Class 0/1; House Dust (Greer) (H1) Ige <0.10 kU/L; House Dust (Hollister- Stier) <0.10 kU/L; House Dust Class 0; Immunoglobulin E 37 kU/L (<OR=114); Immunoglobulin E 38 kU/L (<OR=114); Johnson Grass (G10) Ige 0.18 kU/L; Johnson Grass Cl 0/1; June Grass Class 0/1; June Grass(Kentucky Blue) (G8) 0.17 kU/L; Maple (Box Elder) (T1) Ige 0.15 kU/L; Maple Class 0/1; Meadow Fescue (G4) Ige 0.17 kU/L; Meadow Fescue Class 0/1; Mucor Racemosus Class 0; Oak (T7) Ige 0.19 kU/L; Oak Class 0/1; Orchard Grass (Cocksfoot) (G3) 0.17 kU/L; Penicillium Class 0; Penicillium Notatum (M1) Ige <0.10 kU/L; Perennial Rye Grass (G5) Ige 0.16 kU/L; Perennial Rye Grass Class 0/1; Sweet Vernal Class 0/1; Sweet Vernal Grass (G1) Ige 0.19 kU/L; Timothy Grass (G6) Ige 0.17 kU/L; Timothy Grass Class 0/1
[2020-02-07 13:08] LABS: Common Ragweed (Short) (W1) Ig 0.13 kU/L; English Plantain Class 0/1; Lamb'S Quarters (Goose Foot) 0.26 kU/L; Lamb'S Quarters Class 0/1; Ragweeed Class 0/1; Rough Marsh Elder (W16) Ige 0.17 kU/L; Rough Marsh Elder Class 0/1
[2020-02-10 15:48] LABS: Aspergillus Fumigatus, Igg Ab, 8.7 mg/L (<=102)
== END 2020-02-02 10:39 | disposition home or self-care (01) ==
PROVIDERS: PCP Nurse Practitioner; Visit Provider Specialist
DX: J30.9 Allergic rhinitis, unspecified (principal); R49.0 Dysphonia
CPT/HCPCS: 36415; 82785; 86003

== ENCOUNTER 2020-02-07 12:13 | Outpatient (CLI) | payer OTHER, SELFPAY ==
[2020-02-07 13:27] LABS: Basophils % 0.5 %; Eosinophils # 0.3 10^3/uL (0.0-0.8); Eosinophils % 4.8 %; Hematocrit 31.9 % (42.0-52.0); Hemoglobin 9.9 g/dL (11.7-16.6); Lymphocytes # 1.2 10^3/uL (0.8-4.8); Lymphocytes % 19.3 %; Mean Corpuscular Hemoglobin 29.3 pg (28.0-34.0); Mean Corpuscular Volume 94.4 fL (80-94); Mean Platelet Volume 11.4 fL (7.4-10.4); Monocytes # 0.4 10^3/uL (0.2-0.9); Monocytes % 6.5 %; Neutrophils # 4.13 10^3/uL (1.8-7.7); Neutrophils % 68.6 %; Nucleated Red Blood Cells % 0 %; Platelet Count 225 10^3/cmm (130-400); Red Blood Count 3.38 10^6/uL (4.1-5.3); Red Cell Distribution Width 12.9 % (12.1-15.1)
[2020-02-07 13:45] LABS: Alanine Aminotransferase < 5 U/L (0-41); Albumin Level 4.2 g/dL (3.5-5.2); Alkaline Phosphatase 91 IU/L (40-130); Anion Gap 19.5 (5-19); Aspartate Amino Transferase 11 U/L (0-40); Blood Urea Nitrogen 34 mg/dL (8-23); Calcium 7.5 mg/dL (8.5-10.5); Carbon Dioxide 23 mmol/L (22-29); Chloride 101 mmol/L (98-107); Globulin 3.6 g/dL (1.3-4.6); Glucose 185 mg/dL (65-115); Iron 45 ug/dL (59-158); Osmolality Calculated 300 mOsm/kg (285-295); Percent Saturation 23.1 % (20-50); Potassium 4.5 mmol/L (3.5-5.1); Sodium 139 mmol/L (136-145); Total Bilirubin 0.3 mg/dL (0.15-1.2); Total Iron Binding Capacity 194 mcg/dl; Total Protein 7.8 g/dL (6.6-8.7); Unsaturated Iron Binding 149 ug/dL (112-347)
[2020-02-10 20:18] LABS: Chromogranin A 193 ng/mL (25-140)
[2020-02-14 18:08] LABS: Serotonin Whole Blood 54 ng/mL (56-244)
== END 2020-02-07 12:14 | disposition home or self-care (01) ==
LOC: ONCMED 12:13
PROVIDERS: PCP Nurse Practitioner; Visit Provider Internal Medicine Medical Oncology
DX: C7A.8 Other malignant neuroendocrine tumors (principal); D50.9 Iron deficiency anemia, unspecified; E11.21 Type 2 diabetes mellitus with diabetic nephropathy; I25.119 Atherosclerotic heart disease of native coronary artery with unspecified angina pectoris; R53.82 Chronic fatigue, unspecified; Z85.46 Personal history of malignant neoplasm of prostate; Z91.19 Patient's noncompliance with other medical treatment and regimen
CPT/HCPCS: 36415; 80053; 83540; 83550; 84260; 85025; 86316

== ENCOUNTER 2020-02-07 13:26 | Outpatient (CLI) | payer OTHER, SELFPAY | END 2020-02-07 13:27 | disposition home or self-care (01) | LOC: WOUND 13:27 | PROVIDERS: PCP Nurse Practitioner; Visit Provider Nurse Practitioner Family | DX: E11.621 Type 2 diabetes mellitus with foot ulcer (principal); L97.512 Non-pressure chronic ulcer of other part of right foot with fat layer exposed | CPT/HCPCS: 11042 ==

== ENCOUNTER 2020-02-09 13:43 | Outpatient (CLI) | payer OTHER, SELFPAY ==
--- NOTE | 2020-02-09 13:51 | USCV_ITS ---
Marco Antonio Valadez Age: 80 Gender: M : 1940 Exam Date: 02/09/2020 13:51 Ordering Phys: Hunter Willis MD (Andy) [email or web address] Technologist: Exam Location: [facility] [place] Indication: NON HEALING ULCERS RIGHT LEFT Brachial 168.00 mmHg Brachial 173.00 mmHg Pressure (mmHg) Waveform Pressure (mmHg) Waveform 107.00 Below Knee 164.00 143.00 DPA 127.00 0.83 Ankle/Brachial Index 0.73 106.00 Pre-Exercise Toe Pressure 98.00 0.61 Pre-Exercise Toe/Brachial Index 0.57 FINDINGS Noncompressible posterior tibial arteries bilaterally . Minimally diminished resting NEDRA with respect to the dorsalis pedis arteries bilaterally Diminished resting TBIs bilaterally Near normal PVR waveforms bilaterally CONCLUSIONS Features suggestive of mild peripheral artery disease bilaterally Evidence of arterial sclerosis bilaterally Dr Alla Aguirre MD [facility] (Electronically Signed) Final Date: 14 February 2020 08:57 S
== END 2020-02-09 13:44 | disposition home or self-care (01) ==
LOC: US 13:43
PROVIDERS: PCP Nurse Practitioner; Visit Provider Thoracic Surgery (Cardiothoracic Vascular Surgery)
DX: M79.604 Pain in right leg (principal); M79.605 Pain in left leg; L53.9 Erythematous condition, unspecified; L97.929 Non-pressure chronic ulcer of unspecified part of left lower leg with unspecified severity; L97.919 Non-pressure chronic ulcer of unspecified part of right lower leg with unspecified severity
CPT/HCPCS: 93923

== ENCOUNTER 2020-02-15 09:47 | Outpatient (CLI) | payer OTHER, MEDICARE, SELFPAY ==
--- NOTE | 2020-02-15 10:03 | FL_ITS ---
WS: [id number] MODIFIED BARIUM SWALLOW HISTORY: Other dysphagia FLUOROSCOPY TIME: 0.8 minutes. Modified barium swallow was performed by the speech pathologist. Fluoroscopy was provided with the pa tient in a lateral projection. Multiple food consistencies were provided. Limited evaluation of the modified swallowing exam due to patient's body habitus. Multiple food consi stencies were swallowed without difficulty. No aspiration or laryngeal penetration. FL/FL barium swallow modifd [id number] IMPRESSION: Limited but normal swallowing evaluation. Please see speech therapist report also for recommendations.
== END 2020-02-15 09:48 | disposition home or self-care (01) ==
LOC: RAD 09:56
PROVIDERS: PCP Nurse Practitioner; Visit Provider Specialist
DX: J30.9 Allergic rhinitis, unspecified (principal); R49.0 Dysphonia
CPT/HCPCS: 74230; 92611

== ENCOUNTER 2020-02-15 12:47 | Outpatient (CLI) | payer OTHER, MEDICARE, SELFPAY ==
[2020-02-15] MEDS: octreotide LAR depot 20 mg Kit 40 MG IM (13:35)
--- NOTE | 2020-02-19 15:25 | ONC FU_ITS ---
Dr. Allen Patient Follow-Up Note Patient: Marco Antonio Valadez Unit #: [id number]: 1940 Dicatated By: Jeyson Allen M.D.Date of Visit:Feb 15, 2020 Onc Med Follow-up/Prog Note Chief Complaint: Pancreatic neuroendocrine tumor/anemia. 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 He also has moderately severe anemia. He has a prior history of prostate cancer treated with cryoablation in 1999, in [facility]. 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 He has subsequently presented with progressive central abdominal pain, diarrhea and B12 deficiency. He underwent further workup at [facility]. Endoscopic ultrasound on 01/12/2014 showed 7.1 cm mass around the head of the pancreas but did not appear to be part of the liver, pancreas or duodenum. There was significant enlarged peripancreatic lymphadenopathy up to 2.1 cm as well as enlarged lymph nodes in the mediastinum and the lower paraesophageal area. Fine needle aspiration of the dominant mass revealed low-grade neuroendocrine carcinoma with immunohistochemistry positive for synaptophysin, chromogranin A and MIB1. Mitotic count was reported extremely low. CT scan on 01/20/2015 without contrast showed dominant mass in the head of the pancreas. He was deemed to be a poor surgical candidate. He was then followed by Dr. Donis in [facility]. 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 Baseline octreotide scan on 04/28/2014 revealed activity in the tip of the liver and abdominal central activity in the head of the pancreas and transverse colon; but CT correlate was not available for the comparison. He began on serial somatostatin injections monthly. He was first seen by Dr. Elliott on 08/22/2014. He reported no further abdominal pain, diarrhea, or flushing. In general his symptoms had markedly improved since initiation of injections. Restaging PET/CT on 11/19/2014 showed a single enlarging mass measuring 7.8 cm with SUV 4.8, centered at the head of the pancreas. Switching therapy to TKI was discussed, but he eventually decided against it, and sandostatin treatment was continued. As of August 2017 there have been no evidence of disease progression on his restaging octreotide scan, and repeat CT scans of the abdomen/pelvis in March 2018 showed stable pancreatic head mass measuring 8.5 x 7.6 cm. The solid-appearing left upper pole renal lesion also appeared stable from 2018, but it had increased compared to studies in 2017. His other medical illnesses include obesity, hypertension, hyperlipidemia, type II diabetes, coronary artery disease, GERD, and degenerative arthritis. He has chronic kidney disease, and he also has chronic anemia. He has had previous coronary angioplasty/stent placement. He has had treatment for prostate cancer which included cryosurgery in 1999 and orchiectomy 2000. He is a nonsmoker. INTERIM HISTORY: As of February 2018 there was further decrease in his hemoglobin to 9.5 g. His subsequent serum iron studies appeared to be consistent with iron deficiency with transferrin saturation 15.3% and ferritin 66.0 ng/mL. He then began a trial of oral iron supplementation with ferrous sulfate, which he did not tolerate due to constipation. In June 2018 he was given parenteral iron replacement with 2 infusions of Injectafer. During follow-up there was some increase in the hemoglobin/hematocrit levels, but he remained mildly anemic. He continued treatment with Sandostatin LAR. Restaging CT of the abdomen/pelvis on 10/02/2018 showed persistent, bulky, oval-shaped soft tissue mass arising within or adjacent to the head of the pancreas measuring 7.8 x 9 x 7.1 cm compared to 7.2 x 8.5 x 7.4 cm on the April 2018 study. The overall appearance was similar to the prior studies from April 2018 and November 2017. Bilateral low-density renal lesions appeared stable and appeared to be most likely cysts. Given those findings, he continue treatment with somatostatin analog. His restaging CT abdomen/pelvis on 10/28/2019 showed stable appearance of the large, well-circumscribed soft tissue mass in the right abdomen, contiguous and inseparable from the pancreatic head. It measured 7.9 x 9.1 x 8.0 cm. Prominent iliac chain lymph nodes measuring up to 1.5 cm also showed long-term stability. There were indeterminate bilateral renal masses. He is seen for a scheduled visit. He has continued to have significant weakness/fatigue, and he has very limited activity tolerance. His ECOG score is 3. To make matters worse, this morning he had fallen at home while walking down a ramp, which was slicker than he realized. He has sustained an injury to his left rib cage. He still has good appetite. He has no fever, night sweats, or flushing episodes. He does have cough, but he says his breathing has been okay. He has a little bit of chest pain occasionally. He has no GI complaints. In particular, he has had no diarrhea. He has urinary frequency and some difficulty voiding. In addition to the left rib pain, he has pain in both legs and feet, especially at night. He also reports having some numbness and tingling. Medications: Acetaminophen-Codeine 1 Tablet (of 300-30 mg) Oral q 6 hours PRN, Aspirin 1 Tablet (of 81 mg) Oral daily, Atorvastatin Calcium 0.5 Tablet (of 80 mg) Oral daily, Bicalutamide 1 Tablet (of 50 mg) Oral daily, Calcium + D 2 Tablet Oral daily, Clopidogrel Bisulfate 1 (75 mg) Tablet Oral daily, Clotrimazole (1 %) Cream Topical Take as Directed, DULoxetine HCl 1 Capsule (of 20 mg) Capsule Delayed Release Particles Oral daily, Famotidine 1 Tablet (of 20 mg) Oral b.i.d., Gabapentin 1 (100 mg) Capsule Oral at bedtime, Insulin Glargine (100 Units/mL) Subcutaneous at bedtime PRN, Isosorbide Mononitrate ER 1 Tablet (of 30 mg) Tablet SR 24 HR Oral daily, Lantus Subcutaneous, Loperamide HCl 2 Capsule (of 2 mg) Oral PRN, Nitroglycerin Tablet, sublingual Sublingual PRN, NovoLOG (100 Units/mL) Subcutaneous Take as Directed, Omeprazole 1 Capsule (of 40 mg) Capsule Delayed Release Oral daily, Torsemide 1 Tablet (of 20 mg) Oral daily Allergies: IV dye used for chemical stress test and metal steel . Vital Signs: Performed on Feb 15, 2020 13:03 Height - 68.00 in Weight - 324 lbs (LOW) BSA - 2.51 sq.m BMI - 49.26 (HIGH) Temperature - 97.3 F (LOW) Pulse - 87 /min Respiration - 18 /min O2 Sat - 97 % Pain - 10 Physical Examination: Constitutional - He appears generally weak and he has limited mobiltiy, Eyes - Sclerae nonicteric. Conjunctivae clear, ENMT - No lesions noted in the oral cavity, Hematologic/Lymphatic - No cervical, clavicular, or axillary adenopathy, Respiratory - Lungs are clear with some decrease in air movement bilaterally, Cardiovascular - Heart rhythm is irregular. There is a II/ systolic murmur. There is no gallop or rub noted, Abdomen - Distended. Liver and spleen are not enlarged. There is no abdominal mass or ascites noted and there is no inguinal adenopathy, Extremities - He has 3+ lower extremity edema, which is chronic, Neurologic - No focal neurologic deficits noted. Lab/Imaging: Test performed on Feb 07, 2020 13:07 Serotonin, Serum 54 ng/mL Iron 45 mcg/dL Sodium 139 mmol/L Iron Binding Capacity (TIBC) 194 mcg/dl Potassium 4.5 mmol/L % Iron Saturation 23.1 % Chloride 101 mmol/L CO2 23 mmol/L UIBC 149 mcg/dL Anion Gap 19.5 BUN 34 mg/dL Creatinine 2.9 mg/dL Cr Clearance (Est) 41.9100 mL/min Glucose 185 mg/dL Osmolality - Calculated 300 mOsm/kg Calcium 7.5 mg/dL Protein, Total 7.8 g/dL Albumin 4.2 g/dL Globulin 3.6 g/dL Bilirubin, Total 0.3 mg/dL ALT (SGPT) < 5 U/L AST (SGOT) 11 U/L Alkaline Phosphatase 91 IU/L WBC 6.0 10 3/uL RBC 3.38 10 6/uL HGB 9.9 g/dL HCT 31.9 % MCV 94.4 fL MCH 29.3 pg MCHC 31.0 g/dL RDW 12.9 % Platelet Count 225 10 3/cmm MPV 11.4 fL Neutrophils 4.13 10 3/uL Lymphocytes 1.2 10 3/uL Monocytes 0.4 10 3/uL Eosinophils 0.3 10 3/uL Basophils 0.0 10 3/uL Neutrophil % 68.6 % Lymphocyte % 19.3 % Monocyte % 6.5 % Eosinophil % 4.8 % Basophils % 0.5 % NRBC % 0 % Chromogranin A 193 ng/mL Historic Problem List: 1. 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 He was found to have a stage IV low-grade neuroendocrine carcinoma involving a large mass at the level of the pancreas with possible involvement in mediastinal and peripancreatic lymph nodes, though the latter was not confirmed by subsequent PET imaging. He was deemed not to be a surgical candidate. 2. His symptoms of abdominal pain, diarrhea, and flushing improved with initiation of Sandostatin in April of 2014. Thus far during follow-up there has been no documented disease progression. 3. He has moderately severe anemia. This is likely to be multifactorial, some component of which is likely due to his underlying chronic kidney disease. At one point he also had evidence of iron deficiency, for which he was given parenteral iron replacement with Injectafer. 4. Chronic kidney disease. 5. Obesity. 6. Hypertension. 7. Hyperlipidemia. 8. Type II diabetes. 9. Coronary artery disease. 10. Degenerative arthritis. 11. He also has had treatment for prostate cancer. Bone scan in July 2015 was negative for metastatic disease. Problems Addressed with this Encounter and Plan: 1. Low-grade neuroendocrine carcinoma of the pancreas, stage IV. He has had symptomatic improvement on treatment with Sandostatin LAR. During follow-up he has had persistent, large mass pancreatic head mass, but with no evidence of disease progression. At this point he continues to have very marginal performance status, that is likely to be multifactorial. Thus far his neuroendocrine symptoms have remained adequately controlled, and he has had no apparent adverse effects with his treatment. As such, he will continue Sandostatin LAR 40 mg by intramuscular injection monthly. He will be scheduled for a follow-up visit in 3 months. 2. He has moderately severe anemia. This is also appears to be multifactorial. It is very likely that at least some component is due to his underlying chronic kidney disease. As there has been decline in his renal function, his laboratory results will be forwarded to Dr. Vera. In addition, he is having more difficulty voiding, and I will plan to repeat a postvoid bladder scan when he returns for his next visit. Signed By: Jeyson Allen M.D. <<Signature on File>>
== END 2020-02-15 12:48 | disposition home or self-care (01) ==
LOC: ONCMED 12:51
PROVIDERS: PCP Nurse Practitioner; Visit Provider Internal Medicine Medical Oncology
DX: C7A.8 Other malignant neuroendocrine tumors (principal); E16.4 Increased secretion of gastrin; D50.9 Iron deficiency anemia, unspecified; E11.21 Type 2 diabetes mellitus with diabetic nephropathy; E11.59 Type 2 diabetes mellitus with other circulatory complications; I25.119 Atherosclerotic heart disease of native coronary artery with unspecified angina pectoris; R53.82 Chronic fatigue, unspecified; E11.22 Type 2 diabetes mellitus with diabetic chronic kidney disease; N18.9 Chronic kidney disease, unspecified; E66.9 Obesity, unspecified; I10 Essential (primary) hypertension; E78.5 Hyperlipidemia, unspecified; M19.90 Unspecified osteoarthritis, unspecified site; Z85.46 Personal history of malignant neoplasm of prostate; Z79.890 Hormone replacement therapy
CPT/HCPCS: 96372; 99214; J2353

== ENCOUNTER 2020-02-17 08:07 | Outpatient (CLI) | payer OTHER, MEDICARE, SELFPAY ==
--- NOTE | 2020-02-17 08:22 | FL_ITS ---
WS: [id number] ESOPHAGRAM TECHNIQUE: Double contrast examination was performed with thin and thick barium. Upright and JOHNSON imag es were obtained. CLINICAL INFORMATION: ALLERGIC RHINITIS, UNSPECIFIED, DYSPHONIA COMPARISON: February 15, 2020 FINDINGS: Somewhat limited examination due to body habitus and difficulty standing Swallowing: Penetration with 50-50 thin/thick mixture. Tiny amount of subglottic aspiration. Esophagus: Significantly moderate esophageal dysmotility with tertiary contractions and delayed empty ing. No evidence of high-grade stricture or obstructing mass. No significant hiatal hernia. Gastroesophageal reflux: None. Fluoroscopy time: 1.5 minutes. FL/FL barium swallow [id number] IMPRESSION: 1. Moderate esophageal dysmotility with tertiary contractions and delayed empt ileana on the upright imaging. This results in a standing column of contrast. 2. No evidence of high-grade stricture or obstructing mass. 3. No significant esophageal hiatal hernia. 4. Penetration with 50-50 thin/thick mixture. Tiny amount of subglottic aspira tion.
== END 2020-02-17 08:08 | disposition home or self-care (01) ==
LOC: RADWPI 08:14
PROVIDERS: PCP Nurse Practitioner; Visit Provider Specialist
DX: J30.9 Allergic rhinitis, unspecified (principal); R49.0 Dysphonia
CPT/HCPCS: 74220

== ENCOUNTER 2020-02-17 09:10 | Outpatient (CLI) | payer OTHER, SELFPAY | END 2020-02-17 09:11 | disposition home or self-care (01) | LOC: WOUND 09:10 | PROVIDERS: PCP Nurse Practitioner; Visit Provider Nurse Practitioner Family | DX: E11.621 Type 2 diabetes mellitus with foot ulcer (principal); L97.512 Non-pressure chronic ulcer of other part of right foot with fat layer exposed | CPT/HCPCS: 11042 ==

== ENCOUNTER 2020-02-24 13:08 | Outpatient (CLI) | payer OTHER, MEDICARE, SELFPAY | END 2020-02-24 13:09 | disposition home or self-care (01) | LOC: WOUND 13:09 | PROVIDERS: PCP Nurse Practitioner; Visit Provider Thoracic Surgery (Cardiothoracic Vascular Surgery) | DX: E11.621 Type 2 diabetes mellitus with foot ulcer (principal); L97.512 Non-pressure chronic ulcer of other part of right foot with fat layer exposed | CPT/HCPCS: 11043 ==

== ENCOUNTER 2020-03-01 14:18 | Outpatient (CLI) | payer OTHER, SELFPAY ==
--- NOTE | 2020-03-01 14:26 | CT_ITS ---
WS: [id number] CT NECK WITHOUT CONTRAST. HISTORY: ALLERGIC RHINITIS/DYSPHONIA TECHNIQUE: Contiguous 5 mm axial images are performed through the neck without intravenous contrast. Sagittal and coronal reformats are also submitted. All CT scans at [facility] use at leas t one of these dose optimization techniques: automated exposure control; mA and/or kV adjustment per patient size (includes targeted exams where dose is matched to clinical indication); or iterative rec onstruction. CONTRAST: CONTRAST: None DLP: 946.29 mGy.cm COMPARISON: None available. No obstruction of the nasopharynx or oropharynx or glottic region. There is motion artifact obscuring the soft tissue detail. Without IV contrast cannot evaluate for enhancing nodules or masses. There i s some very mild asymmetry in the airway at the level of the vocal cords but this is probably due to artifact and motion. Torus tubarius and fossa of Rosenmuller and parapharyngeal fat are normal. No significant lymphadenopathy is identified. Thyroid gland and salivary glands are normally enhancing with no masses. Extensive spondylitic changes in the cervical spine. Imaging through the skull base demonstrates of lacunar infarct in the RIGHT basal ganglia. 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 Extensive atheroscleroti c plaque within the intracranial carotid arteries. Mucous retention cyst in the floor of the RIGHT maxillary sinus. Lung apices are clear. CT/CT neck wo con [id number] IMPRESSION: 1. Neck CT is limited without IV contrast and also motion and breathing artifa ct. 2. No obstruction of the airway identified. Masses would be obscured. 3. No adenopathy. 4. Moderate atherosclerotic plaque intracranial carotid arteries.
== END 2020-03-01 14:19 | disposition home or self-care (01) ==
PROVIDERS: PCP Nurse Practitioner; Visit Provider Specialist
DX: J30.9 Allergic rhinitis, unspecified (principal); R49.0 Dysphonia; R13.19 Other dysphagia
CPT/HCPCS: 70490

== ENCOUNTER 2020-03-09 12:58 | Outpatient (CLI) | payer OTHER, SELFPAY | END 2020-03-09 12:59 | disposition home or self-care (01) | LOC: WOUND 12:59 | PROVIDERS: PCP Nurse Practitioner; Visit Provider Thoracic Surgery (Cardiothoracic Vascular Surgery) | DX: E11.621 Type 2 diabetes mellitus with foot ulcer (principal); L97.512 Non-pressure chronic ulcer of other part of right foot with fat layer exposed | CPT/HCPCS: 11042 ==

== ENCOUNTER 2020-03-14 14:32 | Outpatient (CLI) | payer OTHER, SELFPAY ==
[2020-03-14] MEDS: octreotide LAR depot 20 mg Kit 40 MG IM (15:05)
== END 2020-03-14 14:33 | disposition home or self-care (01) ==
LOC: ONCMED 14:36
PROVIDERS: PCP Nurse Practitioner; Visit Provider Internal Medicine Medical Oncology
DX: C7A.8 Other malignant neuroendocrine tumors (principal); D50.8 Other iron deficiency anemias; E11.21 Type 2 diabetes mellitus with diabetic nephropathy; I25.119 Atherosclerotic heart disease of native coronary artery with unspecified angina pectoris; Z85.46 Personal history of malignant neoplasm of prostate
CPT/HCPCS: 96372; J2353

== ENCOUNTER 2020-04-06 14:06 | Outpatient (CLI) | payer OTHER, SELFPAY | END 2020-04-06 14:07 | disposition home or self-care (01) | LOC: WOUND 14:07 | PROVIDERS: PCP Nurse Practitioner; Visit Provider Thoracic Surgery (Cardiothoracic Vascular Surgery) | DX: E11.621 Type 2 diabetes mellitus with foot ulcer (principal); L97.513 Non-pressure chronic ulcer of other part of right foot with necrosis of muscle | CPT/HCPCS: 11042 ==

== ENCOUNTER 2020-04-18 14:15 | Outpatient (CLI) | payer OTHER, SELFPAY ==
[2020-04-18] MEDS: octreotide LAR depot 20 mg Kit 40 MG IM (14:25)
== END 2020-04-18 14:16 | disposition home or self-care (01) ==
LOC: ONCMED 14:16
PROVIDERS: PCP Nurse Practitioner; Visit Provider Internal Medicine Medical Oncology
DX: C7A.8 Other malignant neuroendocrine tumors (principal)
CPT/HCPCS: 96372; J2353

== ENCOUNTER 2020-04-20 13:09 | Outpatient (CLI) | payer OTHER, SELFPAY | END 2020-04-20 13:10 | disposition home or self-care (01) | LOC: WOUND 13:10 | PROVIDERS: PCP Nurse Practitioner; Visit Provider Thoracic Surgery (Cardiothoracic Vascular Surgery) | DX: E11.621 Type 2 diabetes mellitus with foot ulcer (principal); L97.813 Non-pressure chronic ulcer of other part of right lower leg with necrosis of muscle | CPT/HCPCS: 11043 ==

== ENCOUNTER 2020-05-04 13:09 | Outpatient (CLI) | payer OTHER, SELFPAY | END 2020-05-04 13:10 | disposition home or self-care (01) | LOC: WOUND 13:09 | PROVIDERS: PCP Nurse Practitioner; Visit Provider Thoracic Surgery (Cardiothoracic Vascular Surgery) | DX: E11.621 Type 2 diabetes mellitus with foot ulcer (principal); L97.512 Non-pressure chronic ulcer of other part of right foot with fat layer exposed; I96 Gangrene, not elsewhere classified | CPT/HCPCS: 11042 ==

== ENCOUNTER 2020-05-18 13:16 | Outpatient (CLI) | payer OTHER, SELFPAY | END 2020-05-18 13:17 | disposition home or self-care (01) | LOC: WOUND 13:16 | PROVIDERS: PCP Nurse Practitioner; Visit Provider Thoracic Surgery (Cardiothoracic Vascular Surgery) | DX: E11.621 Type 2 diabetes mellitus with foot ulcer (principal); L97.512 Non-pressure chronic ulcer of other part of right foot with fat layer exposed | CPT/HCPCS: 11042 ==

== ENCOUNTER 2020-05-23 12:36 | Outpatient (CLI) | payer OTHER, MEDICARE, SELFPAY ==
[2020-05-23 13:20] LABS: Basophils # 0.1 10^3/uL (0.0-0.1); Basophils % 0.9 %; Eosinophils # 0.4 10^3/uL (0.0-0.8); Eosinophils % 6.1 %; Hematocrit 29.8 % (42.0-52.0); Hemoglobin 9.5 g/dL (11.7-16.6); Lymphocytes # 1.2 10^3/uL (0.8-4.8); Lymphocytes % 21.5 %; Mean Corpuscular HGB Conc 31.9 g/dL (30.0-36.0); Mean Corpuscular Hemoglobin 30.1 pg (28.0-34.0); Mean Corpuscular Volume 94.3 fL (80-94); Mean Platelet Volume 11.6 fL (7.4-10.4); Monocytes # 0.4 10^3/uL (0.2-0.9); Monocytes % 7.5 %; Neutrophils # 3.64 10^3/uL (1.8-7.7); Neutrophils % 63.8 %; Nucleated Red Blood Cells % 0 %; Platelet Count 215 10^3/cmm (130-400); Red Blood Count 3.16 10^6/uL (4.1-5.3); Red Cell Distribution Width 12.9 % (12.1-15.1); White Blood Count 5.7 10^3/uL (4.0-10.0)
[2020-05-23 13:41] LABS: Alanine Aminotransferase 7 U/L (0-41); Albumin Level 3.6 g/dL (3.5-5.2); Alkaline Phosphatase 82 IU/L (40-130); Anion Gap 13.5 (5-19); Aspartate Amino Transferase 10 U/L (0-40); Blood Urea Nitrogen 35 mg/dL (8-23); Carbon Dioxide 26 mmol/L (22-29); Chloride 101 mmol/L (98-107); Ferritin 443 ng/mL (30-400); Globulin 2.9 g/dL (1.3-4.6); Glucose 167 mg/dL (65-115); Iron 58 ug/dL (59-158); Osmolality Calculated 294 mOsm/kg (285-295); Percent Saturation 28.1 % (20-50); Potassium 4.5 mmol/L (3.5-5.1); Sodium 136 mmol/L (136-145); Total Bilirubin 0.2 mg/dL (0.15-1.2); Total Iron Binding Capacity 206 mcg/dl; Total Protein 6.5 g/dL (6.6-8.7); Unsaturated Iron Binding 148 ug/dL (112-347)
[2020-05-23] MEDS: octreotide LAR depot 20 mg Kit 40 MG IM (14:57)
[2020-05-26 20:26] LABS: Chromogranin A 238 ng/mL (25-140)
[2020-05-27 15:12] LABS: Serotonin Whole Blood 16 ng/mL (56-244)
--- NOTE | 2020-06-03 17:01 | ONC FU_ITS ---
[facility] Patient Note Patient: Marco Antonio Valadez Unit #: [id number]: 1940 Dictated By: Sheila KearneyDate of Visit: May 23, 2020 Onc MED Follow-Up/Prog Note Chief Complaint: Pancreatic neuroendocrine tumor/anemia. 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 He also has moderately severe anemia. He has a prior history of prostate cancer treated with cryoablation in 1999, in [facility]. 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 He has subsequently presented with progressive central abdominal pain, diarrhea and B12 deficiency. He underwent further workup at [facility]. Endoscopic ultrasound on 01/12/2014 showed 7.1 cm mass around the head of the pancreas but did not appear to be part of the liver, pancreas or duodenum. There was significant enlarged peripancreatic lymphadenopathy up to 2.1 cm as well as enlarged lymph nodes in the mediastinum and the lower paraesophageal area. Fine needle aspiration of the dominant mass revealed low-grade neuroendocrine carcinoma with immunohistochemistry positive for synaptophysin, chromogranin A and MIB1. Mitotic count was reported extremely low. CT scan on 01/20/2015 without contrast showed dominant mass in the head of the pancreas. He was deemed to be a poor surgical candidate. He was then followed by Dr. Donis in [facility]. 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 Baseline octreotide scan on 04/28/2014 revealed activity in the tip of the liver and abdominal central activity in the head of the pancreas and transverse colon; but CT correlate was not available for the comparison. He began on serial somatostatin injections monthly. He was first seen by Dr. Elliott on 08/22/2014. He reported no further abdominal pain, diarrhea, or flushing. In general his symptoms had markedly improved since initiation of injections. Restaging PET/CT on 11/19/2014 showed a single enlarging mass measuring 7.8 cm with SUV 4.8, centered at the head of the pancreas. Switching therapy to TKI was discussed, but he eventually decided against it, and sandostatin treatment was continued. As of August 2017 there have been no evidence of disease progression on his restaging octreotide scan, and repeat CT scans of the abdomen/pelvis in March 2018 showed stable pancreatic head mass measuring 8.5 x 7.6 cm. The solid-appearing left upper pole renal lesion also appeared stable from 2018, but it had increased compared to studies in 2017. His other medical illnesses include obesity, hypertension, hyperlipidemia, type II diabetes, coronary artery disease, GERD, and degenerative arthritis. He has chronic kidney disease, and he also has chronic anemia. He has had previous coronary angioplasty/stent placement. He has had treatment for prostate cancer which included cryosurgery in 1999 and orchiectomy 2000. He is a nonsmoker. INTERIM HISTORY: As of February 2018 there was further decrease in his hemoglobin to 9.5 g. His subsequent serum iron studies appeared to be consistent with iron deficiency with transferrin saturation 15.3% and ferritin 66.0 ng/mL. He then began a trial of oral iron supplementation with ferrous sulfate, which he did not tolerate due to constipation. In June 2018 he was given parenteral iron replacement with 2 infusions of Injectafer. During follow-up there was some increase in the hemoglobin/hematocrit levels, but he remained mildly anemic. He continued treatment with Sandostatin LAR. Restaging CT of the abdomen/pelvis on 10/02/2018 showed persistent, bulky, oval-shaped soft tissue mass arising within or adjacent to the head of the pancreas measuring 7.8 x 9 x 7.1 cm compared to 7.2 x 8.5 x 7.4 cm on the April 2018 study. The overall appearance was similar to the prior studies from April 2018 and November 2017. Bilateral low-density renal lesions appeared stable and appeared to be most likely cysts. Given those findings, he continue treatment with somatostatin analog. His restaging CT abdomen/pelvis on 10/28/2019 showed stable appearance of the large, well-circumscribed soft tissue mass in the right abdomen, contiguous and inseparable from the pancreatic head. It measured 7.9 x 9.1 x 8.0 cm. Prominent iliac chain lymph nodes measuring up to 1.5 cm also showed long-term stability. There were indeterminate bilateral renal masses. In review of his [facility] records prior to his visit, he did have a CT of the neck without contrast per Dr. Redd's request on March 01, 2020. A reported there was a limited study due to no IV contrast and also motion and breathing artifact. There is no obstruction of the airway identified although masses could be obscured . No adenopathy; moderate atherosclerotic plaque intracranial carotid arteries. Mr Valadez is here today for a scheduled visit. He is due for monthly Sandostatin. He has no new concerns today. She is following with the wound clinic for a wound on his right foot and weeping in his left lower extremity. It has appearance of cellulitis but he states that it they are taking care of it. He is also being followed by [facility] and states that they are changing his dressing daily. He states it is improving and overall is healing. He denies any fever or chills. He has had no night sweats or flushing. He states that he is shortness of breath is about the same as always. Has occasional cough but is nonproductive at this time. He states his appetite is good. His energy is still very marginal. He has weakness and fatigue but states is no worse than what it has been. He continues to have limited activity tolerance. He denies any GI or complaints. He states that he is urinary system seems to be some better. He has not had his bladder scan as requested by Dr. Allen. He states he still has pain in his feet and legs at night but that overall seems to be better. He continues to have chronic numbness and tingling but states it is stable. His ECOG is 3. He did receive his second [place] COVID-19 vaccine on April 22, 2020. Past Medical History: Coronary artery disease Diabetes type II Gastroesophageal reflux disease Hyperlipidemia Hypertension Neuroendocrine tumor Obesity Osteoarthritis Prostate cancer Shila-Hernandez syndrome Checks blood sugar probably three times a month Past Surgical History: Cardiac stent placement Carpel tunnel release bilateral COVID-19 VACCINE #2???lot #[id number] in 2020 Orchectomy in 2000 Prostate cryosurgery in 1999 Allergies: IV dye used for chemical stress test and metal steel . Medications: Acetaminophen-Codeine 1 Tablet (of 300-30 mg) Oral q 6 hours PRN Aspirin 1 Tablet (of 81 mg) Oral daily Atorvastatin Calcium 0.5 Tablet (of 80 mg) Oral daily Bicalutamide 1 Tablet (of 50 mg) Oral daily Calcium + D 2 Tablet Oral daily Clopidogrel Bisulfate 1 (75 mg) Tablet Oral daily Clotrimazole (1 %) Cream Topical Take as Directed DULoxetine HCl 1 Capsule (of 20 mg) Capsule Delayed Release Particles Oral daily Famotidine 1 Tablet (of 20 mg) Oral b.i.d. Gabapentin 1 (100 mg) Capsule Oral at bedtime Insulin Glargine (100 Units/mL) Subcutaneous at bedtime PRN Isosorbide Mononitrate ER 1 Tablet (of 30 mg) Tablet SR 24 HR Oral daily Lantus Subcutaneous Loperamide HCl 2 Capsule (of 2 mg) Oral PRN Nitroglycerin Tablet, sublingual Sublingual PRN NovoLOG (100 Units/mL) Subcutaneous Take as Directed Omeprazole 1 Capsule (of 40 mg) Capsule Delayed Release Oral daily Torsemide 1 Tablet (of 20 mg) Oral daily Family History: Mr. Valadez's mother at age 72: medical history includes pancreatic cancer. Mr. Valadez's father at age 82. Mr. Valadez has 2 brothers: 2 alive. Mr. Valadez's first brother's medical history includes skin cancer. Another brother's medical history includes prostate cancer. Social History: Mr. Valadez is and he is a disabled. Mr. Valadez has never smoked. He has no history of drinking. Review Of Symptoms: Vital Signs: Performed on May 23, 2020 14:01 Height - 68.00 in BSA - 0.00 sq.m BMI - 0.00 Temperature - 97.6 F (LOW) Pulse - 88 /min Respiration - 17 /min BP - 130/84 mm(hg) O2 Sat - 97 % Pain - 5,2 - Ambulatory/capable of all self-care, unable to perform any work activities. Up and about more than 50% of waking hours. (ECOG) Physical Examination: Constitutional Alert, oriented, no acute distress. Skin pink, warm and dry. Head Normocephalic; atraumatic. Eyes Conjunctivae and sclerae are clear and without icterus. Pupils are reactive and equal. Neck Supple without masses or thyromegaly. No jugular venous distension. Hematologic/Lymphatic No petechiae or purpura. No tender or palpable lymph nodes in the cervical, supraclavicular, or axillary area. Respiratory Lungs are clear to auscultation without rhonchi or wheezing. Cardiovascular Regular rate and rhythm of heart without murmurs,clicks, gallops or rubs. Abdomen Non-tender, non-distended, no masses, ascites. Good bowel sounds noted in all quads. No guarding or rebound tenderness. No pulsatile masses. Back/Spine Non-tender to palpation. Musculoskeletal No tenderness or swelling, normal range of motion without obvious weakness. Integumentary No rashes or lesions. Neurologic No sensory or motor deficits, normal cerebellar function. Presents in a wheelchair and can self propel it. Psychiatric Alert and oriented times three. Coherent speech. Verbalizes understanding of our discussions today. Laboratory:Test performed on May 23, 2020 13:00 Serotonin, Serum 16 ng/mL Ferritin 443 ng/mL Iron 58 mcg/dL Sodium 136 mmol/L Iron Binding Capacity (TIBC) 206 mcg/dl Potassium 4.5 mmol/L % Iron Saturation 28.1 % Chloride 101 mmol/L CO2 26 mmol/L UIBC 148 mcg/dL Anion Gap 13.5 BUN 35 mg/dL Creatinine 2.7 mg/dL Cr Clearance (Est) 44.6000 mL/min Glucose 167 mg/dL Osmolality - Calculated 294 mOsm/kg Calcium 8.0 mg/dL Protein, Total 6.5 g/dL Albumin 3.6 g/dL Globulin 2.9 g/dL Bilirubin, Total 0.2 mg/dL ALT (SGPT) 7 U/L AST (SGOT) 10 U/L Alkaline Phosphatase 82 IU/L WBC 5.7 10 3/uL RBC 3.16 10 6/uL HGB 9.5 g/dL HCT 29.8 % MCV 94.3 fL MCH 30.1 pg MCHC 31.9 g/dL RDW 12.9 % Platelet Count 215 10 3/cmm MPV 11.6 fL Neutrophils 3.64 10 3/uL Lymphocytes 1.2 10 3/uL Monocytes 0.4 10 3/uL Eosinophils 0.4 10 3/uL Basophils 0.1 10 3/uL Neutrophil % 63.8 % Lymphocyte % 21.5 % Monocyte % 7.5 % Eosinophil % 6.1 % Basophils % 0.9 % NRBC % 0 % Chromogranin A 238 ng/mL Impression: 1. 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 He was found to have a stage IV low-grade neuroendocrine carcinoma involving a large mass at the level of the pancreas with possible involvement in mediastinal and peripancreatic lymph nodes, though the latter was not confirmed by subsequent PET imaging. He was deemed not to be a surgical candidate. 2. His symptoms of abdominal pain, diarrhea, and flushing improved with initiation of Sandostatin in April of 2014. Thus far during follow-up there has been no documented disease progression. 3. He has moderately severe anemia. This is likely to be multifactorial, some component of which is likely due to his underlying chronic kidney disease. At one point he also had evidence of iron deficiency, for which he was given parenteral iron replacement with Injectafer. 4. Chronic kidney disease. 5. Obesity. 6. Hypertension. 7. Hyperlipidemia. 8. Type II diabetes. 9. Coronary artery disease. 10. Degenerative arthritis. 11. He also has had treatment for prostate cancer. Bone scan in July 2015 was negative for metastatic disease. Plan: 1. Low-grade neuroendocrine carcinoma of the pancreas, stage IV. He has had symptomatic improvement on treatment with monthly Sandostatin LAR. During follow-up he has had persistent, large mass pancreatic head mass, but with no evidence of disease progression. At this point he continues to have very marginal performance status, that is likely to be multifactorial. Thus far his neuroendocrine symptoms have remained adequately controlled, and he has had no apparent adverse effects with his treatment. A. Continue with monthly Sandostatin 40 mg. He is due for his next dose today. B. Today's labs reviewed in detail and discussed with Mr. Valadez and a copy was given to him. WBC 5.7, hemoglobin 9.5, platelets 215,000, ANC is 3640. Potassium 4.5 random glucose 167 creatinine 2.7 which is chronic for him. His last creatinine on February 07, 2020 was 2.9. Calcium is improved at 8.0. LFTs are normal. His ferritin is 443. His iron saturation is 28.1% iron level is 58, TIBC is 206. C. In regards to the neuroendocrine carcinoma of the pancreas, we will plan to continue monthly Sandostatin LAR 40 mg. 2. He has moderately severe anemia. This is also appears to be multifactorial. It is very likely that at least some component is due to his underlying chronic kidney disease. A. His hemoglobin today is 9.5. B. His iron studies are normal. C. I have asked that we recheck his CBC CMP, iron studies in 1 month. This could be done by [facility] or if they are unable to obtain that he can have it drawn he is here for his monthly Sandostatin. C. His creatinine has improved slightly from 2.9 in January 2022 2.7 today. 3. Follow-up plan A. We will plan to see him back in 3 months with CBC CMP iron studies, ferritin, chromogranin A and serotonin levels. B. He will continue monthly Sandostatin in the interim. C. Mr. Valadez has been encouraged to contact us in the interim should questions or problems arise. D. He is encouraged to keep his appointments with wound care in regards to his right foot wound and the left lower extremity cellulitis. He is due to see them later this week. Signed By: Sheila Kearney-, CNP Jeyson Allen MD <<Signature on File>>
== END 2020-05-23 12:37 | disposition home or self-care (01) ==
LOC: ONCMED 12:39
PROVIDERS: PCP Nurse Practitioner; Visit Provider Nurse Practitioner
DX: C7A.8 Other malignant neuroendocrine tumors (principal); E16.4 Increased secretion of gastrin; D50.9 Iron deficiency anemia, unspecified; E11.21 Type 2 diabetes mellitus with diabetic nephropathy; E11.59 Type 2 diabetes mellitus with other circulatory complications; I25.119 Atherosclerotic heart disease of native coronary artery with unspecified angina pectoris; R53.82 Chronic fatigue, unspecified; E11.22 Type 2 diabetes mellitus with diabetic chronic kidney disease; N18.9 Chronic kidney disease, unspecified; I10 Essential (primary) hypertension; E66.9 Obesity, unspecified; E78.5 Hyperlipidemia, unspecified; Z85.46 Personal history of malignant neoplasm of prostate; Z79.818 Long term (current) use of other agents affecting estrogen receptors and estrogen levels
CPT/HCPCS: 36415; 80053; 82728; 83540; 83550; 84260; 85025; 86316; 96372; 99214; J2353

== ENCOUNTER 2020-06-01 13:28 | Outpatient (CLI) | payer OTHER, SELFPAY | END 2020-06-01 13:29 | disposition home or self-care (01) | LOC: WOUND 13:29 | PROVIDERS: PCP Nurse Practitioner; Visit Provider Thoracic Surgery (Cardiothoracic Vascular Surgery) | DX: E11.621 Type 2 diabetes mellitus with foot ulcer (principal); L97.512 Non-pressure chronic ulcer of other part of right foot with fat layer exposed | CPT/HCPCS: 11042 ==

== ENCOUNTER 2020-06-15 12:47 | Outpatient (CLI) | payer OTHER, SELFPAY | END 2020-06-15 12:48 | disposition home or self-care (01) | LOC: WOUND 12:48 | PROVIDERS: PCP Nurse Practitioner; Visit Provider Thoracic Surgery (Cardiothoracic Vascular Surgery) | DX: E11.621 Type 2 diabetes mellitus with foot ulcer (principal); L97.512 Non-pressure chronic ulcer of other part of right foot with fat layer exposed | CPT/HCPCS: 11042 ==

== ENCOUNTER 2020-06-22 14:41 | Outpatient (CLI) | payer OTHER, MEDICARE, SELFPAY ==
[2020-06-22] MEDS: octreotide LAR depot 20 mg Kit 40 MG IM (15:32)
== END 2020-06-22 14:42 | disposition home or self-care (01) ==
PROVIDERS: PCP Nurse Practitioner; Visit Provider Internal Medicine Medical Oncology
DX: C7A.8 Other malignant neuroendocrine tumors (principal); D50.9 Iron deficiency anemia, unspecified; E11.21 Type 2 diabetes mellitus with diabetic nephropathy; E11.59 Type 2 diabetes mellitus with other circulatory complications; I25.119 Atherosclerotic heart disease of native coronary artery with unspecified angina pectoris; R53.82 Chronic fatigue, unspecified
CPT/HCPCS: 96372; J2353

== ENCOUNTER 2020-06-29 13:11 | Outpatient (CLI) | payer OTHER, SELFPAY | END 2020-06-29 13:12 | disposition home or self-care (01) | LOC: WOUND 13:13 | PROVIDERS: PCP Nurse Practitioner; Visit Provider Thoracic Surgery (Cardiothoracic Vascular Surgery) | DX: E11.621 Type 2 diabetes mellitus with foot ulcer (principal); L97.512 Non-pressure chronic ulcer of other part of right foot with fat layer exposed | CPT/HCPCS: 11042 ==

== ENCOUNTER 2020-07-05 11:25 | Observation (INO) | payer OTHER, MEDICARE, SELFPAY ==
[2020-07-05] VITALS (9 sets, daily range): BP systolic 127–132; BP diastolic 70–97; PULSE 77–97; RESP 16–80; TEMP 36.4–37.1; O2SAT 92–98; BMI 47.9
--- NOTE | 2020-07-05 11:39 | W.ED.CHESTPA ---
HPI - Chest Pain General: Chief Complaint: Chest Pain Stated Complaint: CHEST TIGHTNESS Time Seen by Provider: 07/05/20 11:27 History of Present Illness: HPI narrative: 80-year-old male presents emergency room via EMS from home. Patient called EMS stating he did not feel good and had some chest discomfort. On arrival there he was mildly hypoxic. He has home O2 but states he only uses it at night had not been using it they put him on 3 L and he was in the upper 90s on arrival here when I seen the patient he was still on 3 L it turned down to 2 and he still maintaining sats in the mid and upper 90s. He has had history of coronary disease and previously had stents placed states is greater than 10 years ago he also has a neuroendocrine tumor arising out of the pancreas for which she sees Dr. Allen and is still getting treatment. Additionally he has history of type 2 diabetes with ulcers that has been going to the wound care clinic for. He was given aspirin and 3 lingual nitro in route. He has complete resolution of his chest pain relief are seen. MD complaint: chest pain Pertinent past history: coronary artery disease Onset (ago): minute(s) Timing of current episode: episodic Prior episodes: Yes Onset: during rest Pain location: left chest Pain radiation: none Severity: mild Quality: heaviness Relieving factors: nitroglycerin Exacerbating factors: nothing Associated symptoms: Reports dyspnea and leg edema; Deny abdominal pain, diaphoresis, fever(s), nausea, palpitations, sense of impending doom, syncope or vomiting Treatment prior to arrival: nitroglycerin Review of Systems Const: Denies: fever(s) or diaphoresis ENMT: Denies: throat pain, ear or mastoid pain, nasal discharge or nasal congestion Card: Denies: palpitations or syncope Resp: Reports: dyspnea GI: Denies: abdominal pain, nausea or vomiting : Denies: flank pain, dysuria, urinary frequency or urinary urgency Skin/Breast: Denies: rash or pruritus PFS ED PFSH: Medical History (Updated 07/06/20 @ 10:58 by Lisandro Lomas DO) Anemia Aortic stenosis Chronic kidney disease, stage II (mild) COPD (chronic obstructive pulmonary disease) Coronary disease Coronary stent patent Dyslipidemia GERD (gastroesophageal reflux disease) Hypertension Insulin dependent diabetes mellitus Mild aortic stenosis Morbid obesity Neuroendocrine tumor Non-STEMI (non-ST elevated myocardial infarction) Pancreatic tumor Peripheral vascular disease With evidence of carotid artery disease especially on the right. Prostate cancer Renal mass Systolic and diastolic CHF, chronic Type 2 diabetes mellitus Venous stasis Shila-Hernandez syndrome Surgical History H/O prostatectomy Family History Other Hyperlipidemia Hypertension Denies family history of Cancer Social History Smoking and tobacco status: former smoker Caregiver/support person: Yes (Daughter) Household members: caregiver Housing: House Marital status: Single Physical Exam Const: COMMON NORMALS: no acute distress GENERAL APPEARANCE: cooperative and comfortable ORIENTATION/CONSCIOUSNESS: Yes awake, Yes oriented to person, Yes oriented to place and Yes oriented to time HENMT: COMMON NORMALS: normocephalic, atraumatic and hearing grossly normal bilaterally HEAD & SCALP: normocephalic and atraumatic Neck/C-Spine: COMMON NORMALS: no JVD Resp: COMMON NORMALS: normal respiratory effort, No retractions, No use of accessory muscles and clear to auscultation bilaterally AUSCULTATION: clear to auscultation bilaterally Cardio: COMMON NORMALS: no JVD, regular rate, regular rhythm and No murmurs present (Cardio) RATE: regular rate RHYTHM: regular rhythm GI: COMMON NORMALS: Soft to palpation and No hepatosplenomegaly present AUSCULTATION: Yes normoactive bowel sounds PALPATION: Yes Soft to palpation, No Tenderness to palpation present (GI), No Guarding due to palpation present (GI) and Yes No hepatosplenomegaly present Extremity: COMMON NORMALS: normal to inspection, capillary refill normal, no clubbing, cyanosis or edema, no calf tenderness and no pedal edema Neuro: SENSORIUM/ORIENTATION: Yes oriented to person, Yes oriented to place and Yes oriented to time Skin: COMMON NORMALS: no rashes or lesions noted GENERAL SKIN EXAM: no rashes or lesions noted Course Vital Signs: Vital signs: Vital Signs Temperature 98.7 F 07/06/20 09:17 Pulse Rate 86 07/06/20 09:17 Respiratory Rate 17 07/06/20 09:17 Blood Pressure 121/71 07/06/20 09:17 Pulse Oximetry 91 07/06/20 09:17 MDM - Chest Pain MDM Narrative: Medical decision making narrative: pt has elevated heart score. admit for completion of cardiac series. Lab Data: Labs: Lab Results 07/05/20 07/05/20 07/05/20 Range/Units 11:45 11:45 11:45 WBC 7.1 (4.0-10.0) 10^3/ uL RBC 3.14 L (4.1-5.3) 10^6/u L Hgb 9.4 L (11.7-16.6) g/dL Hct 30.5 L (42.0-52.0) % MCV 97.1 H (80-94) fL MCH 29.9 (28.0-34.0) pg MCHC 30.8 (30.0-36.0) g/dL RDW 13.2 (12.1-15.1) % Plt Count 237 (130-400) 10^3/c mm MPV 12.3 H (7.4-10.4) fL Neut % (Auto) 68.1 % Lymph % (Auto) 17.6 % Nance % (Auto) 6.8 % Eos % (Auto) 6.2 % Baso % (Auto) 1.0 % Neut # (Auto) 4.80 (1.8-7.7) 10^3/u L Lymph # (Auto) 1.2 (0.8-4.8) 10^3/u L Nance # (Auto) 0.5 (0.2-0.9) 10^3/u L Eos # (Auto) 0.4 (0.0-0.8) 10^3/u L Baso # (Auto) 0.1 (0.0-0.1) 10^3/u L Nucleated RBC % (a uto) 0 % Nucleated RBCs # 0.0 /100WBC Sodium 139 (136-145) mmol/L Potassium 4.6 (3.5-5.1) mmol/L Chloride 103 (98-107) mmol/L Carbon Dioxide 21 L (22-29) mmol/L Anion Gap 19.6 H (5-19) BUN 40 H (8-23) mg/dL Creatinine 2.4 H (0.7-1.2) mg/dL GFR Calculation Not Reportable Glucose 182 H (65-115) mg/dL Calculated Osmolal ity 302 H (285-295) mOsm/k g Calcium 7.8 L (8.5-10.5) mg/dL Total Bilirubin 0.2 (0.15-1.2) mg/dL AST 13 (0-40) U/L ALT 7 (0-41) U/L Alkaline Phosphata se 80 (40-130) IU/L Creatine Kinase 66 (39-308) U/L Troponin T Baselin e 49 H (0-15) ng/L Troponin T 120 Min risa (0-15) ng/L Delta Troponin T (0-10) ABS# Total Protein 7.1 (6.6-8.7) g/dL Albumin 3.9 (3.5-5.2) g/dL Globulin 3.2 (1.3-4.6) g/dL 07/05/20 Range/Units 14:20 WBC (4.0-10.0) 10^3/ uL RBC (4.1-5.3) 10^6/u L Hgb (11.7-16.6) g/dL Hct (42.0-52.0) % MCV (80-94) fL MCH (28.0-34.0) pg MCHC (30.0-36.0) g/dL RDW (12.1-15.1) % Plt Count (130-400) 10^3/c mm MPV (7.4-10.4) fL Neut % (Auto) % Lymph % (Auto) % Nance % (Auto) % Eos % (Auto) % Baso % (Auto) % Neut # (Auto) (1.8-7.7) 10^3/u L Lymph # (Auto) (0.8-4.8) 10^3/u L Nance # (Auto) (0.2-0.9) 10^3/u L Eos # (Auto) (0.0-0.8) 10^3/u L Baso # (Auto) (0.0-0.1) 10^3/u L Nucleated RBC % (a uto) % Nucleated RBCs # /100WBC Sodium (136-145) mmol/L Potassium (3.5-5.1) mmol/L Chloride (98-107) mmol/L Carbon Dioxide (22-29) mmol/L Anion Gap (5-19) BUN (8-23) mg/dL Creatinine (0.7-1.2) mg/dL GFR Calculation Glucose (65-115) mg/dL Calculated Osmolal ity (285-295) mOsm/k g Calcium (8.5-10.5) mg/dL Total Bilirubin (0.15-1.2) mg/dL AST (0-40) U/L ALT (0-41) U/L Alkaline Phosphata se (40-130) IU/L Creatine Kinase (39-308) U/L Troponin T Baselin e (0-15) ng/L Troponin T 120 Min risa 49.15 H (0-15) ng/L Delta Troponin T 0.15 (0-10) ABS# Total Protein (6.6-8.7) g/dL Albumin (3.5-5.2) g/dL Globulin (1.3-4.6) g/dL EKG Data^: EKG 1: EKG interpretation date: 07/05/20 EKG interpretation time: 12:31 Interpretation: Sinus rhythm with PVCs. Rate of 82 NV interval 0.17 QTC 425 incomplete bundle branch block no acute ST changes Discharge Plan Discharge Patient Disposition: Admitted As Inpatient Admit Provider: Fuad Morris Clinical Impression: Chest pain, Type 2 diabetes mellitus, Coronary disease, Aortic stenosis Condition: Stable Coding Level of Care Code ED Steward[employer] for Chg Fwd Exam Comprehensive
--- NOTE | 2020-07-05 11:43 | XR_ITS ---
WS: [id number] Exam: XR chest 1V portable [id number] Date/Time of Exam: 07/05/2020 11:46 AM Reason For Exam: chest pain/dypsnea Comparison 07/27/2019. The lungs are fully expanded. No consolidating infiltrates identified. Mild cardiac enlargement. No p leural effusions. The mediastinum and osseous thorax are unremarkable. Calcified granulomas noted jameel aterally. XR/XR chest 1V portable [id number] IMPRESSION: 1. Mild cardiac enlargement unchanged. No acute cardiopulmonary process.
--- NOTE | 2020-07-05 11:43 | ECG_ITS ---
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 Measurements Intervals [place] Rate: 82 P: 64 [place]: 174 QRS: -23 QRSD: 112 T: 50 QT: 425 QTc: 498 Interpretive Statements SINUS RHYTHM WITH FREQUENT VENTRICULAR PREMATURE COMPLEXES BORDERLINE LEFT AXIS DEVIATION [QRS AXIS < -20] INCOMPLETE RIGHT BUNDLE BRANCH BLOCK [90+ ms QRS DURATION, TERMINAL R IN V1/V2, 40+ ms S IN I/aVL/V4/V5/V6] PROLONGED QT INTERVAL Compared to ECG 09/17/2019 14:29:33 Ventricular premature complex(es) now present Incomplete right bundle-branch block now present Prolonged QT interval now present Intraventricular conduction delay no longer present Electronically Signed On 07-05-2020 17:37:15 CDT by Omer Hernandez M.D. [id number]
[2020-07-05 12:13] LABS: Basophils # 0.1 10^3/uL (0.0-0.1); Eosinophils # 0.4 10^3/uL (0.0-0.8); Eosinophils % 6.2 %; Hematocrit 30.5 % (42.0-52.0); Hemoglobin 9.4 g/dL (11.7-16.6); Lymphocytes # 1.2 10^3/uL (0.8-4.8); Lymphocytes % 17.6 %; Mean Corpuscular HGB Conc 30.8 g/dL (30.0-36.0); Mean Corpuscular Hemoglobin 29.9 pg (28.0-34.0); Mean Corpuscular Volume 97.1 fL (80-94); Mean Platelet Volume 12.3 fL (7.4-10.4); Monocytes # 0.5 10^3/uL (0.2-0.9); Monocytes % 6.8 %; Neutrophils % 68.1 %; Nucleated Red Blood Cells % 0 %; Platelet Count 237 10^3/cmm (130-400); Red Blood Count 3.14 10^6/uL (4.1-5.3); Red Cell Distribution Width 13.2 % (12.1-15.1); White Blood Count 7.1 10^3/uL (4.0-10.0)
[2020-07-05 12:38] LABS: Troponin(5th) Baseline 49 ng/L (0-15)
[2020-07-05 12:41] LABS: Alanine Aminotransferase 7 U/L (0-41); Albumin Level 3.9 g/dL (3.5-5.2); Alkaline Phosphatase 80 IU/L (40-130); Blood Urea Nitrogen 40 mg/dL (8-23); Calcium 7.8 mg/dL (8.5-10.5); Carbon Dioxide 21 mmol/L (22-29); Chloride 103 mmol/L (98-107); Creatine Phosphokinase 66 U/L (39-308); Globulin 3.2 g/dL (1.3-4.6); Glucose 182 mg/dL (65-115); Osmolality Calculated 302 mOsm/kg (285-295); Sodium 139 mmol/L (136-145); Total Bilirubin 0.2 mg/dL (0.15-1.2); Total Protein 7.1 g/dL (6.6-8.7)
[2020-07-05 12:58] LABS: Anion Gap 19.6 (5-19); Aspartate Amino Transferase 13 U/L (0-40); Potassium 4.6 mmol/L (3.5-5.1)
--- NOTE | 2020-07-05 13:43 | ECG_ITS ---
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 Measurements Intervals [place] Rate: 78 P: 59 [place]: 178 QRS: -32 QRSD: 108 T: 53 QT: 400 QTc: 456 Interpretive Statements SINUS RHYTHM WITH FREQUENT VENTRICULAR PREMATURE COMPLEXES LEFT AXIS DEVIATION [QRS AXIS < -30] Compared to ECG 07/05/2020 12:31:59 Incomplete right bundle-branch block no longer present Prolonged QT interval no longer present Electronically Signed On 07-05-2020 17:49:39 CDT by Omer Hernandez M.D. [id number]
[2020-07-05 14:46] LABS: Troponin 5 2HR 49.15 ng/L (0-15); Troponin 5 2HR Delta 0.15 ABS# (0-10)
[2020-07-05 15:48] LABS: Add Urine Microscopic? YES; Bilirubin Urine Neg (Negative); Blood Urine Trace (Negative); Glucose Urine UA 2+ (Normal); Ketones Urine Negative (Negative); Leukocyte Esterase Urine Negative (Negative); Nitrate Urine Negative (Negative); Protein Urine 3+ (Negative); Specific Gravity, Urine 1.015 (1.005-1.030); Urine Appearance Clear (CLEAR); Urine Color Yellow (Yellow); Urobilinogen Urine Norm (Negative); pH Urine 5 (5-7)
[2020-07-05 16:25] LABS: Bacteria Urine TRACE /hpf; RBC Urine 0-4 /hpf (0-2); Squamous Epithelial Cell Urine 0-4 /hpf (0-5)
[2020-07-05 16:26] LABS: Add Urine Culture? No
--- NOTE | 2020-07-05 17:40 | P.HP_ITS ---
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 Allen. Came in with chief complaint of acute onset of left-sided's pressure-like chest pain started this morning, lasted around 2 hours, spontaneously resolved. Patient states that when he woke up in the morning he checked his blood sugar it was 75, after that he ate some breakfast and sweets and rechecked his blood sugar it was in the 130s. Upon arrival in the ER he was worked up for above mentioned complaint: X-ray chest: lungs are fully expanded. No consolidating infiltrates identified. EKG: Sinus rhythm with frequent PVCs, incomplete RBBB , Pertinent labs: Troponin: 49, 2-hour troponin: 49.15 , 2-hour without significant delta, 6-hour troponin pending BUN: 40 , SCR : 2.4 Review of Systems Const: Denies: fever(s), chills, body aches, change in appetite or diaphoresis Card: Denies: palpitations, swelling of feet/ankles, dyspnea on exertion, orthopnea or leg pain with exertion Resp: Denies: dyspnea, productive cough, wheezing or pain on inspiration GI: Denies: abdominal pain, nausea, vomiting, diarrhea or constipation : Denies: flank pain or difficulty urinating Musc: Denies: back pain, extremity pain or extremity swelling Neuro: Denies: headache(s), difficulty walking or confusion Medications/Allergies Home Medications Medication Instructions Recorded Confirmed Last Taken Type nitroglycerin 0.4 mg SUBLINGUAL Q5M 03/16/19 07/05/20 Unknown History torsemide 20 mg PO DAILY 03/16/19 07/05/20 07/04/20 History Lantus U-100 Insulin 55 unit SUBCUT DAILY 03/17/19 07/05/20 07/04/20 History albuterol sulfate 2 puff INHALATION QID PRN 03/17/19 07/05/20 Unknown History aspirin [Adult Low Dose Aspirin] 81 mg PO DAILY #30 tab 03/17/19 07/05/20 07/05/20 Rx atorvastatin 20 mg PO BEDTIME #30 tab 03/17/19 07/05/20 07/04/20 Rx bicalutamide 50 mg PO DAILY 03/17/19 07/05/20 07/05/20 History capsaicin See Rx Instructions .ROUTE .COMPLEX 03/17/19 07/05/20 Unknown History clopidogrel 75 mg PO DAILY 03/17/19 07/05/20 07/05/20 History duloxetine 20 mg PO DAILY 03/17/19 07/05/20 07/04/20 History gabapentin 100 mg PO TID 03/17/19 07/05/20 07/05/20 History hydrophilic cream 1 applic TOPICAL DAILY 03/17/19 07/05/20 Unknown History insulin aspart U-100 See Rx Instructions .ROUTE .COMPLEX 03/17/19 07/05/20 Unknown History fluticasone propionate 50 2 spray INTRANASAL DAILY #9.9 ml 06/08/19 07/05/20 07/04/20 Rx mcg/actuation nasal spray,suspension acetaminophen-codeine 1 - 2 tab PO BEDTIME PRN 07/05/20 07/05/20 Unknown History [Tylenol-Codeine #3] calcium 600 mg PO DAILY 07/05/20 07/05/20 07/05/20 History cholecalciferol (vitamin D3) 25 mcg PO DAILY 07/05/20 07/05/20 07/04/20 History [Vitamin D3] ergocalciferol (vitamin D2) 50,000 unit PO Q7D 07/05/20 07/05/20 06/28/20 History ipratropium bromide 2 spray INTRANASAL TID 07/05/20 07/05/20 Unknown History isosorbide mononitrate 60 mg PO DAILY 07/05/20 07/05/20 07/05/20 History pantoprazole 20 mg PO BID 07/05/20 07/05/20 07/04/20 History Allergies Allergy/AdvReac Type Severity Reaction Status Date / Time Iodinated Contrast Media Allergy Mild ALGY-Hives Unverified 03/01/20 14:40 PFSH Acute PFSH: Medical History (Updated 07/05/20 @ 18:32 by Fuad Morris MD) Anemia Aortic stenosis Chronic kidney disease, stage II (mild) COPD (chronic obstructive pulmonary disease) Coronary disease Coronary stent patent Dyslipidemia GERD (gastroesophageal reflux disease) Hypertension Insulin dependent diabetes mellitus Mild aortic stenosis Morbid obesity Neuroendocrine tumor Non-STEMI (non-ST elevated myocardial infarction) Pancreatic tumor Peripheral vascular disease With evidence of carotid artery disease especially on the right. Prostate cancer Renal mass Systolic and diastolic CHF, chronic Type 2 diabetes mellitus Venous stasis Shila-Hernandez syndrome Surgical History H/O prostatectomy Family History Other Hyperlipidemia Hypertension Denies family history of Cancer Social History Smoking and tobacco status: former smoker Caregiver/support person: Yes (Daughter) Household members: caregiver Housing: House Marital status: Single Vitals/I&O/Wt Last Vital Signs Temp 98.2 F 07/05/20 15:59 Pulse 81 07/05/20 15:59 Resp 18 07/05/20 15:59 BP 127/97 07/05/20 15:59 Pulse Ox 92 07/05/20 16:25 Weight last 48 hrs Weight 147.418 kg Physical Exam Const: COMMON NORMALS: patient oriented x3 HENMT: COMMON NORMALS: normocephalic and atraumatic HEAD & SCALP: normocephalic and atraumatic Chest: CHEST: Yes Symmetrical chest wall rise Resp: COMMON NORMALS: clear to auscultation bilaterally EFFORT & INSPECTION: Yes symmetric chest movement AUSCULTATION: clear to auscultation bilaterally Cardio: COMMON NORMALS: regular rate, regular rhythm, S1 normal heart sound present, S2 normal heart sound present, No gallops present (Cardio), No murmurs present (Cardio), No rub (Cardio) and Peripheral pulses 2+ throughout RATE: regular rate RHYTHM: regular rhythm HEART SOUNDS: S1 normal heart sound present and S2 normal heart sound present PERIPHERAL PULSES: Peripheral pulses 2+ throughout GI: COMMON NORMALS: Normal to inspection, nondistended, normoactive bowel sounds present, Soft to palpation, non-tender, No hepatosplenomegaly present and no masses AUSCULTATION: Yes normoactive bowel sounds PALPATION: Yes Soft to palpation and Yes No hepatosplenomegaly present RECTAL EXAM: Yes deferred Extremity: NARRATIVE EXTREMITY EXAM: B/L L/E Chronic venous stasis changes present Neuro: COMMON NORMALS: patient oriented x3 Data : 07/05/20 11:45 07/05/20 11:45 A&P Assessment and plan (1) Chest pain: Typical cardiac chest pain, particularly become important given his risk factors which includes history of coronary artery disease, diabetes hypertension dyslipidemia morbid obesity. Will do 2D echo, follow 6-hour troponin, continue to monitor patient on telemetry. Stress test depending on 2D echo and ongoing symptoms while in hospital. Continue aspirin 81 mg p.o. day Plavix 75 mg p.o. Atorvastatin 40 mg daily Imdur 60 mg p.o. daily Sublingual nitro Status: Acute (2) Type 2 diabetes mellitus: Lantus 30 units subcu at bedtime Low-dose sliding scale insulin Status: Acute (3) Coronary disease: Plan is 1 Status: Acute (4) Systolic and diastolic CHF, chronic: Currently compensated We will continue with torsemide 20 mg p.o. daily Status: Acute (5) COPD (chronic obstructive pulmonary disease): Currently not in exacerbation Supplemental oxygen as needed DuoNebs Status: Acute (6) Aortic stenosis: Status: Acute (7) Venous stasis: Status: Acute (8) Chronic kidney disease, stage II (mild): Currently serum creatinine is at its baseline: 2.4-2.7 Monitor BMP Avoid nephrotoxic's Status: Acute (9) Anemia: Status: Acute (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 (11) Sleep apnea: Status: Acute Qualifiers: Sleep apnea type: obstructive Qualified Code(s): G47.33 - Obstructive sleep apnea (adult) (pediatric) Additional A&P Information CODE STATUS: AND DVT prophylaxis: Attestations Medical Necessity Statement*: Patient needs to be in hospital for management of chest pain.Anticipated length of stay less than 2 midnights. 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
[2020-07-05 18:50] LABS: Troponin 5 6HR 49.34 ng/L (0-15); Troponin 5 6HR Delta 0.34 ng/L (0-12)
[2020-07-05 21:21] LABS: Glucose Point of Care 260 mg/dL (70-110)
[2020-07-05] MEDS: heparin 5,000 unit/mL INJ 1 mL 5000 UNIT SUBCUT (23:24)
[2020-07-05] MEDS: atorvastatin 40 mg Tablet 20 MG PO (23:24)
[2020-07-05] MEDS: gabapentin 100 mg Capsule PO (23:24)
[2020-07-05] MEDS: insulin glargine 100 units/1 mL 30 UNIT SUBCUT (23:25)
[2020-07-06] VITALS (10 sets, daily range): BP systolic 107–142; BP diastolic 54–74; PULSE 65–87; RESP 17–18; TEMP 36.3–37.1; O2SAT 91–99
[2020-07-06 06:42] LABS: Glucose Point of Care 69 mg/dL (70-110)
[2020-07-06 06:43] LABS: Basophils # 0.1 10^3/uL (0.0-0.1); Basophils % 1.2 %; Eosinophils # 0.4 10^3/uL (0.0-0.8); Eosinophils % 6.8 %; Hematocrit 29.4 % (42.0-52.0); Hemoglobin 9.3 g/dL (11.7-16.6); Lymphocytes # 1.2 10^3/uL (0.8-4.8); Lymphocytes % 21.7 %; Mean Corpuscular HGB Conc 31.6 g/dL (30.0-36.0); Mean Corpuscular Hemoglobin 30.4 pg (28.0-34.0); Mean Corpuscular Volume 96.1 fL (80-94); Mean Platelet Volume 11.9 fL (7.4-10.4); Monocytes # 0.4 10^3/uL (0.2-0.9); Monocytes % 6.8 %; Neutrophils # 3.61 10^3/uL (1.8-7.7); Neutrophils % 63.2 %; Nucleated Red Blood Cells % 0 %; Platelet Count 185 10^3/cmm (130-400); Red Blood Count 3.06 10^6/uL (4.1-5.3); Red Cell Distribution Width 12.7 % (12.1-15.1); White Blood Count 5.7 10^3/uL (4.0-10.0)
[2020-07-06] MEDS: perflutren protein-a microsphr 0.22 mg/mL SDV 3 mL IV (06:49)
[2020-07-06 07:12] LABS: Alanine Aminotransferase < 5 U/L (0-41); Albumin Level 3.5 g/dL (3.5-5.2); Alkaline Phosphatase 75 IU/L (40-130); Anion Gap 14.2 (5-19); Aspartate Amino Transferase 10 U/L (0-40); Blood Urea Nitrogen 40 mg/dL (8-23); Calcium 7.9 mg/dL (8.5-10.5); Carbon Dioxide 27 mmol/L (22-29); Chloride 105 mmol/L (98-107); Globulin 3.3 g/dL (1.3-4.6); Glucose 62 mg/dL (65-115); Magnesium 1.6 mg/dL (1.7-2.3); NT Pro B Type Natriuretic Pept 2748 pg/mL (0-450); Osmolality Calculated 302 mOsm/kg (285-295); Potassium 4.2 mmol/L (3.5-5.1); Sodium 142 mmol/L (136-145); Total Bilirubin 0.2 mg/dL (0.15-1.2); Total Protein 6.8 g/dL (6.6-8.7)
[2020-07-06] MEDS: pantoprazole DR 40 mg Tablet PO ×2 (09:12→18:08)
[2020-07-06] MEDS: aspirin 81 mg EC Tablet PO (09:12)
[2020-07-06] MEDS: TORSEmide 20 mg Tablet PO (09:12)
[2020-07-06] MEDS: isosorbide mononitrate ER 60 mg Tablet PO (09:13)
[2020-07-06] MEDS: duloxetine 20 mg Capsule PO (09:13)
[2020-07-06] MEDS: cholecalciferol (vitamin D3) 1,000 unit Tablet 1000 UNIT PO (09:13)
[2020-07-06] MEDS: gabapentin 100 mg Capsule PO ×3 (09:13→21:02)
[2020-07-06] MEDS: magnesium sulfate premix 2 GM/50 ML PIGGYBACK IV (09:14)
[2020-07-06] MEDS: fluticasone nasal spray 16gm Btl 2 SPRAY INTRANASAL (09:14)
[2020-07-06] MEDS: heparin 5,000 unit/mL INJ 1 mL 5000 UNIT SUBCUT ×2 (09:14→21:01)
[2020-07-06] MEDS: clopidogrel 75 mg Tablet PO (09:14)
--- NOTE | 2020-07-06 10:42 | PC.CHAP ---
Pastoral Care Encounter/Spiritual Assessment Type of Contact [] Declined supervisory civil engineer visit [] Patient/Family/Request visit [] Outpatient visit [] Follow-up visit [] Physician referral [] Code/Alert [x] Routine visit [] Staff referral [] Actively dying [] Patient sleeping [] Family support [] [] Out of room [] Palliative care [] [x] Receiving care in room [] Pre-surgical visit [] Trauma [x] Long length of stay [] ICU visit [] Other: Relational/Emotional Strength [x] Patient feels connected with others/family/visitors/staff [] Distress [] Loneliness/isolation [] Abandonment Spirituality of Patient [x] Person of Maribel [] Attends Latter Day of their [place] [x] Believes in Prayer [] Reads Bible or Adventism materials [] There are Spiritual issues to be addressed Clam Digger Interventions [x] Prayer [x] Active listening [x] Non-anxious presence [x] Spiritual/emotional support [] Crisis/trauma care [x] Spiritual counseling [] Bereavement support [] Provided bereavement packet [] Provided Bible/devotional materials [] Provided toy/stuffed animal, coloring book to patient or family member [] Provided Communion [] Anointing/[place] [] Salvation [x] Completed spiritual assessment [] Other: Impact on Illness or Injury [] Angry [] Fearful [x] Anxious [] Often cries [] Exhaustion [x] Unable to work [] Unable to attend restoration [] Unable to walk/stand [] Unable to read [] Unable to drive [] Unable to eat/drink [] Unable to sleep [] Unable to be with family [] Patient intubated [] Other: Summary Swelling in legs, heart & BP, has a good attitude, go[place]ung home, Time spent with patient 10 mins
[2020-07-06 11:57] LABS: Glucose Point of Care 191 mg/dL (70-110)
[2020-07-06 14:21] LABS: Glucose Point of Care 274 mg/dL (70-110)
[2020-07-06 15:57] LABS: Glucose Point of Care 225 mg/dL (70-110)
--- NOTE | 2020-07-06 17:30 | USCV_ITS ---
Marco Antonio Valadez Age: 80 Gender: M : 1940 Exam Date: 07/06/2020 06:20 Ordering Phys: Fuad Morris MD Technologist: Exam Location: [facility] [place] Indication: CHEST PAIN BP: 134 / 75 HR: 76 Rhythm: Sinus Technical Quality: Technically difficult study MEASUREMENTS (Male / Female) Normal Values 2D ECHO LV Diastolic Diameter PLAX 5.1 cm 4.2 - 5.9 / 3.9 - 5.3 cm LV Systolic Diameter PLAX 3.2 cm IVS Diastolic Thickness 1.0 cm 0.6 - 1.0 / 0.6 - 0.9 cm IVS Systolic Thickness 1.5 cm LVPW Diastolic Thickness 1.2 cm 0.6 - 1.0 / 0.6 - 0.9 cm LVPW Systolic Thickness 1.6 cm LVOT Diameter 2.0 cm LV Ejection Fraction 2D Teich 67.1 % LV Ejection Fraction MOD 2C 67.7 % LV Ejection Fraction 2C AL 67.1 % LA Diameter 3.6 cm LA Width 4.2 cm LA Height 4.8 cm RA Width 4.4 cm RA Height 5.3 cm Aorta at Sinotubular Diameter 3.3 cm M-MODE LV Diastolic Diameter MM 4.8 cm 4.2 - 5.9 / 3.9 - 5.3 cm LV Systolic Diameter MM 3.2 cm LV Ejection Fraction MM Teich 60.7 % IVS Diastolic Thickness MM 0.9 cm 0.6 - 1.0 / 0.6 - 0.9 cm IVS Systolic Thickness MM 1.4 cm LVPW Diastolic Thickness MM 1.2 cm 0.6 - 1.0 / 0.6 - 0.9 cm LVPW Systolic Thickness MM 2.4 cm RV Diastolic Diameter MM 1.8 cm Aortic Annulus Diameter 4.2 cm LA Ao Ratio MM 0.9 MV E Point Septal Separation 1.1 cm DOPPLER AV Peak Velocity 138.3 cm/s LVOT Peak Velocity 87.0 cm/s AV Area Cont Eq vti 2.0 cm squared AV Area Cont Eq pk 2.0 cm squared MV Area PHT 5.0 cm squared Mitral E to A Ratio 1.1 MV E' Velocity 38.5 cm/s Mitral E to MV E' Ratio 11.3 Mitral E to LV E' Lateral Ratio 9.7 Mitral E to LV E' Septal Ratio 13.5 TR Peak Velocity 201.7 cm/s TR Peak Gradient 16.3 mmHg Right Atrial Pressure 3.0 mmHg Pulmonary Artery Systolic Pressu 19.3 mmHg PV Peak Velocity 54.0 cm/s FINDINGS Left Ventricle Normal left ventricular cavity size. Mildly decreased left ventricular systolic function. Left ventricular ejection fraction is estimated at 45-50 %. Global hypokinesis more pronounced in septal and inferior lamas. Abnormal septal motion consistent with conduction abnormality. Right Ventricle Right ventricle not well visualized. Right Atrium Right atrium not well visualized. Left Atrium Left atrium not well visualized. Mitral Valve Mitral valve not well visualized. Thickened mitral valve. Aortic Valve Aortic valve not well visualized. Aortic valve sclerosis without significant stenosis. No aortic valve regurgitation. Tricuspid Valve Tricuspid valve not well visualized. Pulmonic Valve Pulmonic valve not well visualized. Trace pulmonary valve regurgitation. Pericardium No pericardial effusion. Aorta Aorta not well visualized. CONCLUSIONS 1. This is a technically very difficult study with only apical views. Optison was used per protocol. 2. Normal left ventricular cavity size. Mildly decreased left ventricular systolic function. Left ventricular ejection fraction is estimated at 45-50%. Global hypokinesis more pronounced in septal and inferior lamas. 3. Aortic valve sclerosis without significant stenosis. 4. Direct comparison to previous study not possible. Maribel Infante MD (Electronically Signed) Final Date: 06 Jul 2020 18:26 S
--- NOTE | 2020-07-06 17:44 | PM.PN ---
Subjective Subjective: Interval history: Patient was seen and examined today, denies any similar chest pressure, or chest pain. Overall he is doing better. Vitals and labs have been reviewed Vitals/I&O/Wt Last Vital Signs Temp 97.7 F 07/06/20 16:00 Pulse 65 07/06/20 16:00 Resp 17 07/06/20 16:00 BP 134/74 07/06/20 16:00 Pulse Ox 93 07/06/20 16:00 07/06/20 07/06/20 07/06/20 06:59 14:59 22:59 Intake Total 600 / 600 50 / 650 Output Total 300 / 300 500 / 500 Balance -300 / -300 100 / 100 50 / 150 Weight last 48 hrs Weight 147.418 kg Physical Exam Const: COMMON NORMALS: patient oriented x3 HENMT: COMMON NORMALS: normocephalic and atraumatic HEAD & SCALP: normocephalic and atraumatic Chest: CHEST: Yes Symmetrical chest wall rise Resp: COMMON NORMALS: clear to auscultation bilaterally EFFORT & INSPECTION: Yes symmetric chest movement AUSCULTATION: clear to auscultation bilaterally Cardio: COMMON NORMALS: regular rate, regular rhythm, S1 normal heart sound present, S2 normal heart sound present, No gallops present (Cardio), No murmurs present (Cardio), No rub (Cardio) and Peripheral pulses 2+ throughout RATE: regular rate RHYTHM: regular rhythm HEART SOUNDS: S1 normal heart sound present and S2 normal heart sound present PERIPHERAL PULSES: Peripheral pulses 2+ throughout GI: COMMON NORMALS: Normal to inspection, nondistended, normoactive bowel sounds present, Soft to palpation, non-tender, No hepatosplenomegaly present and no masses AUSCULTATION: Yes normoactive bowel sounds PALPATION: Yes Soft to palpation and Yes No hepatosplenomegaly present RECTAL EXAM: Yes deferred Extremity: NARRATIVE EXTREMITY EXAM: B/L L/E Chronic venous stasis changes present Neuro: COMMON NORMALS: patient oriented x3 Data : 07/06/20 06:15 07/06/20 06:15 A&P Assessment and plan (1) Chest pain: Typical cardiac chest pain, particularly become important given his risk factors which includes history of coronary artery disease, diabetes hypertension dyslipidemia morbid obesity. Likely chronic stable angina. Troponin trend is negative 2D echo: Normal left ventricular cavity size. Mildly decreased left ventricular systolic function. Left ventricular ejection fraction is estimated at 45-50%. Global hypokinesis more pronounced in septal and inferior laams. Stress test depending on 2D echo and ongoing symptoms aspirin 81 mg p.o. day Plavix 75 mg p.o. Atorvastatin 40 mg daily Imdur 60 mg p.o. daily Sublingual nitro Status: Acute (2) Type 2 diabetes mellitus: Lantus 30 units subcu at bedtime Low-dose sliding scale insulin Status: Acute (3) Coronary disease: Plan is 1 Status: Acute (4) Systolic and diastolic CHF, chronic: Currently compensated We will continue with torsemide 20 mg p.o. daily Status: Acute (5) COPD (chronic obstructive pulmonary disease): Currently not in exacerbation Supplemental oxygen as needed DuoNebs Status: Acute (6) Aortic stenosis: Status: Acute (7) Venous stasis: Status: Acute (8) Chronic kidney disease, stage II (mild): Currently serum creatinine is at its baseline: 2.4-2.7 Monitor BMP Avoid nephrotoxic's Status: Acute (9) Anemia: Status: Acute (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 (11) Sleep apnea: Status: Acute Qualifiers: Sleep apnea type: obstructive Qualified Code(s): G47.33 - Obstructive sleep apnea (adult) (pediatric) Additional A&P Information CODE STATUS: AND DVT prophylaxis: Attestations Medical Necessity Statement*: Patient needs to be in hospital for chest pain work-up and management. 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
[2020-07-06 20:13] LABS: Glucose Point of Care 166 mg/dL (70-110)
[2020-07-06] MEDS: atorvastatin 40 mg Tablet 20 MG PO (21:02)
[2020-07-06] MEDS: insulin glargine 100 units/1 mL 30 UNIT SUBCUT (21:13)
[2020-07-07] VITALS: BP 126/78; PULSE 83; RESP 18; TEMP 36.5; O2SAT 91
[2020-07-07] MEDS: bisacodyl 5 mg Tablet 10 MG PO (00:25)
[2020-07-07 03:42] VITALS: BP 127/64; PULSE 74; RESP 17; TEMP 36.4; O2SAT 93
[2020-07-07 06:01] LABS: Blood Urea Nitrogen 40 mg/dL (8-23); Calcium 7.8 mg/dL (8.5-10.5); Carbon Dioxide 25 mmol/L (22-29); Chloride 103 mmol/L (98-107); Glucose 145 mg/dL (65-115); Osmolality Calculated 298 mOsm/kg (285-295); Sodium 138 mmol/L (136-145)
[2020-07-07 06:07] LABS: Glucose Point of Care 156 mg/dL (70-110)
[2020-07-07 06:08] LABS: Anion Gap 14.7 (5-19); Potassium 4.7 mmol/L (3.5-5.1)
--- NOTE | 2020-07-07 06:31 | PC.NURSE ---
SHIFT SUMMARY Has rested well tonight. No c/o chest pain. Did request laxative tonight. Says no BM for few days. Was given po Bisacodyl. Voiding well per urinal
[2020-07-07 07:58] VITALS: BP 177/85; PULSE 81; RESP 16; TEMP 36.6; O2SAT 92
[2020-07-07] MEDS: duloxetine 20 mg Capsule PO (08:45)
[2020-07-07] MEDS: aspirin 81 mg EC Tablet PO (08:45)
[2020-07-07] MEDS: cholecalciferol (vitamin D3) 1,000 unit Tablet 1000 UNIT PO (08:45)
[2020-07-07] MEDS: clopidogrel 75 mg Tablet PO (08:45)
[2020-07-07] MEDS: gabapentin 100 mg Capsule PO (08:45)
[2020-07-07] MEDS: pantoprazole DR 40 mg Tablet PO (08:45)
[2020-07-07] MEDS: TORSEmide 20 mg Tablet PO (08:45)
[2020-07-07] MEDS: isosorbide mononitrate ER 60 mg Tablet PO (08:45)
[2020-07-07] MEDS: heparin 5,000 unit/mL INJ 1 mL 5000 UNIT SUBCUT (08:46)
[2020-07-07] MEDS: fluticasone nasal spray 16gm Btl 2 SPRAY INTRANASAL (08:47)
--- NOTE | 2020-07-07 09:02 | XR_ITS ---
WS: [id number] Exam: XR foot RT min 3V* [id number] Date/Time of Exam: 07/07/2020 9:02 AM Reason For Exam: wound Comparison 02/02/2020. No acute fracture or dislocation. No sign of bone destruction. Degenerative changes in the IP and MP joints. Osteopenia. Soft tissue swelling of the forefoot. XR/XR foot RT min 3V* [id number] IMPRESSION: 1. No fracture or bone destruction. 2. Degenerative changes. 3. Soft tissue edema of the forefoot.
[2020-07-07 09:43] VITALS: PULSE 80; RESP 17; O2SAT 91
[2020-07-07 11:05] VITALS: BP 151/83; PULSE 86; RESP 16; TEMP 36.6; O2SAT 94
[2020-07-07 11:53] LABS: Glucose Point of Care 262 mg/dL (70-110)
--- NOTE | 2020-07-07 11:58 | P.DS_ITS ---
Discharge Providers Date of Admission: 07/05/20 14:23 Date of Discharge: July 07, 2020 Attending Provider at Admission: Fuad Morris MD Attending Provider at Discharge: Fuad Morris MD Primary Care Provider: BEVERLY Griffin Diagnoses at Discharge Discharge Diagnosis (1) Chest pain: Status: Resolved (2) Type 2 diabetes mellitus: Status: Acute (3) Coronary disease: Status: Acute (4) Systolic and diastolic CHF, chronic: Status: Acute (5) COPD (chronic obstructive pulmonary disease): Status: Acute (6) Aortic stenosis: Status: Acute (7) Venous stasis: Status: Acute (8) Chronic kidney disease, stage II (mild): Status: Acute (9) Anemia: Status: Acute (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 (11) Sleep apnea: Status: Acute Qualifiers: Sleep apnea type: obstructive Qualified Code(s): G47.33 - Obstructive sleep apnea (adult) (pediatric) Reason for Visit Reason for Visit: CHEST TIGHTNESS Hospital Course Hospital Course Marco Antonio Valadez is a 80 year old male with past medical history of hypertension, diabetes, coronary artery disease s/p PCI, Acute combined systolic diastolic congestive heart failure exacerbation, grade 1 diastolic dysfunction, CKD stage 3, COPD, mild aortic stenosis, morbid obesity 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 Allen. Came in with chief complaint of acute onset of left-sided's pressure-like chest pain started in the morning on the day of admission, lasted around 2 hours, spontaneously resolved.Upon arrival in the ER he was worked up for above mentioned complaint: X-ray chest: lungs are fully expanded. No consolidating infiltrates identified. EKG: Sinus rhythm with frequent PVCs, incomplete RBBB. Pertinent labs: Troponin trend was without significant delta. BUN: 40 , SCR : 2.4.He was admitted for the management of typical cardiac chest pain, likely chronic stable angina,2D echo done during the hospital stay: Showed normal left ventricular cavity size. Mildly decreased left ventricular systolic function. Left ventricular ejection fraction is estimated at 45-50%. Global hypokinesis more pronounced in septal and inferior lamas. He was kept on aspirin 81 mg p.o. day, Plavix 75 mg p.o. Atorvastatin 40 mg daily , Imdur 60 mg p.o. daily as well as Sublingual nitro.For most part patient remained relatively chest pain- free during the hospital stay, the plan was to continue the patient on his current home medications, and monitor for now. He may need outpatient stress test in future. X-ray of the right feet was also done: For evaluation of his chronic right medial plantar ulcer, which showed No fracture or bone destruction. Degenerative changes. Soft tissue edema of the forefoot. He was discharged on levofloxacin 500 mg p.o. daily for 7 days he will continue to follow-up with wound care clinic As per his appointment. He was also managed for his other comorbid condition, CKD stage III remained stable.He will follow with Dr. Vera as an outpatient.For his history of combined heart failure with preserved and reduced ejection fraction he was compensated, he was continued on torsemide. Patient responded well to the above medical management and is being discharged in stable condition, Follow-up with his human resources records clerk as an outpatient. Physical Exam Const: COMMON NORMALS: patient oriented x3 HENMT: COMMON NORMALS: normocephalic and atraumatic HEAD & SCALP: normocephalic and atraumatic Chest: CHEST: Yes Symmetrical chest wall rise Resp: COMMON NORMALS: clear to auscultation bilaterally EFFORT & INSPECTION: Yes symmetric chest movement AUSCULTATION: clear to auscultation bilaterally Cardio: COMMON NORMALS: regular rate, regular rhythm, S1 normal heart sound present, S2 normal heart sound present, No gallops present (Cardio), No murmurs present (Cardio), No rub (Cardio) and Peripheral pulses 2+ throughout RATE: regular rate RHYTHM: regular rhythm HEART SOUNDS: S1 normal heart sound present and S2 normal heart sound present PERIPHERAL PULSES: Peripheral pulses 2+ throughout GI: COMMON NORMALS: Normal to inspection, nondistended, normoactive bowel sounds present, Soft to palpation, non-tender, No hepatosplenomegaly present and no masses AUSCULTATION: Yes normoactive bowel sounds PALPATION: Yes Soft to palpation and Yes No hepatosplenomegaly present RECTAL EXAM: Yes deferred Extremity: NARRATIVE EXTREMITY EXAM: B/L L/E Chronic venous stasis changes present, Rt l/e chronic well-healed ulcer at the base of great toe. Neuro: COMMON NORMALS: patient oriented x3 Discharge Data Data Completed and Pending: Completed Studies During Hospitalization Category Date Time Status XR chest 1V jayla ble [id number] Stat Exams 07/05/20 11:43 Completed XR foot RT min 3V * [id number] Routine Exams 07/07/20 09:02 Completed CV echo wo/w cont rast [id number] Routine Ultrasound 07/06/20 17:30 Completed Pending at discharge Category Date Time Status Basic Metabolic P [place] AM LABS Lab 07/08/20 04:00 Ordered Labs from last 24 hours 07/07/20 07/07/20 07/07/20 11:50 06:03 05:07 Sodium 138 Potassium 4.7 Chloride 103 Carbon Dioxide 25 Anion Gap 14.7 BUN 40 H Creatinine 2.8 H GFR Calculation Not Reportable Glucose 145 H POC Glucose 262 H 156 H Calculated Osmolal ity 298 H Calcium 7.8 L 07/06/20 07/06/20 07/06/20 20:06 15:52 14:18 Sodium Potassium Chloride Carbon Dioxide Anion Gap BUN Creatinine GFR Calculation Glucose POC Glucose 166 H 225 H 274 H Calculated Osmolal ity Calcium Vitals: Last Vital Signs Temp 98 F 07/07/20 11:05 Pulse 86 07/07/20 11:05 Resp 16 07/07/20 11:05 BP 151/83 07/07/20 11:05 Pulse Ox 94 07/07/20 11:05 Discharge Plan Discharge Patient Disposition: Home Condition: Stable Prescriptions: New levofloxacin 500 mg tablet 500 mg PO DAILY 7 Days Qty: 7 RF: 0 Continued fluticasone propionate [Flonase Allergy Relief] 50 mcg/actuation spray,suspension 2 spray INTRANASAL DAILY Qty: 9.9 RF: 0 torsemide 20 mg Tablet 20 mg PO DAILY RF: 0 nitroglycerin 0.4 mg Tablet, Sublingual 0.4 mg SUBLINGUAL Q5M RF: 0 gabapentin 100 mg Capsule 100 mg PO TID RF: 0 bicalutamide 50 mg Tablet 50 mg PO DAILY RF: 0 duloxetine 20 mg Capsule,Delayed Release(Dr/Ec) 20 mg PO DAILY RF: 0 clopidogrel 75 mg Tablet 75 mg PO DAILY RF: 0 insulin aspart U-100 5 units auto-injector See Rx Instructions .ROUTE .COMPLEX RF: 0 Lantus U-100 Insulin 100 unit/mL Solution 55 unit SUBCUT DAILY RF: 0 albuterol sulfate 90 mcg/actuation Hfa Aerosol Inhaler 2 puff inhalation QID PRN (Reason: Shortness Of Breath) RF: 0 capsaicin See Rx Instructions .ROUTE .COMPLEX RF: 0 hydrophilic cream Cream 1 applic TOPICAL DAILY RF: 0 atorvastatin 40 mg Tablet 20 mg PO BEDTIME Qty: 30 RF: 0 aspirin [Adult Low Dose Aspirin] 81 mg tablet,delayed release (DR/EC) 81 mg PO DAILY Qty: 30 RF: 0 pantoprazole 20 mg Tablet,Delayed Release (Dr/Ec) 20 mg PO BID RF: 0 isosorbide mononitrate 60 mg Tablet Extended Release 24 Hr 60 mg PO DAILY RF: 0 calcium 600 mg Capsule 600 mg PO DAILY RF: 0 acetaminophen-codeine 300-30 mg Tablet 1 - 2 tab PO BEDTIME PRN (Reason: Pain) RF: 0 ergocalciferol (vitamin D2) 50,000 unit Tablet 50,000 unit PO Q7D RF: 0 ipratropium bromide 21 mcg (0.03 %) [place],Non-Aerosol 2 spray INTRANASAL TID RF: 0 Vitamin D3 25 mcg (1,000 unit) Tablet,Chewable 25 mcg PO DAILY RF: 0 Discharge Orders: Discharge Order (Routine); Ordered 07/07/20 Ordered By: Fuad Morris Referrals: Melchor Vera MD [Referring] - 2 weeks ([facility] will call you with an appointment.) Omer Hernandez M.D [Physician] - 1 month (Please call [facility] on Friday to schedule an appointment to be seen in one month.) Sasha Biggs FNP [Nurse Practitioner] - 1 week (Please call [facility] on Friday to schedule an appointment to be seen in one week.) Leslie Villalta FNP [Primary Care Provider] - Discharge Diet: Cardiac Discharge Activity: Resume usual activity Patient Instructions: Levofloxacin (By mouth), Chest Pain (DC), Aortic Stenosis (DC), Sleep Apnea Syndrome (DC), Chronic Kidney Disease (DC), Chronic Obstructive Pulmonary Disease (DC), Anemia (DC), COPD Stoplight, Opioid Safety Discharge Attestations Time Spent in Discharge Care*: less than 30 min Specific Discharge Activities: educating patient, educating and/or supporting family/caregiver, discussing with patient case manager/social workers/dc planners, documenting/other paperwork and evaluating patient/reviewing data Status at Discharge: Cognitive status at discharge: cognitively intact , Behavioral status at discharge: cooperative , Functional status at discharge: independent ambulation Overall status at discharge: patient is back to [facility] Quality Metrics Clinical Quality Measures During this hospital stay, did patient experience: None Coding Level of Care Code Acute Chg FW DC note Diagnoses Chest pain R07.9 Type 2 diabetes mellitus E11.9 Coronary disease I25.10 Systolic and diastolic CHF, chronic I50.42 COPD (chronic obstructive pulmonary disease) J44.9 Aortic stenosis I35.0 Venous stasis I87.8 Chronic kidney disease, stage II (mild) N18.2 Anemia D64.9 Shila-Hernandez syndrome E16.4 Sleep apnea G47.33 Sleep apnea type: obstructive
--- NOTE | 2020-07-07 14:07 | PC.RESP ---
Pulmonary Rehab information sent to patient.
[2020-07-07 14:24] VITALS: BP 151/83; PULSE 86; RESP 16; TEMP 36.6; O2SAT 94
== END 2020-07-07 13:15 | disposition home or self-care (01) ==
LOC: ER 14:34 → CSU 07-06 06:31 → MEDSURG 07-06 06:51
PROVIDERS: Admitting Provider Internal Medicine; Emergency Provider Family Medicine; PCP Nurse Practitioner; Visit Provider Internal Medicine
DX: R07.89 Other chest pain (principal); E11.9 Type 2 diabetes mellitus without complications; I25.10 Atherosclerotic heart disease of native coronary artery without angina pectoris; J44.9 Chronic obstructive pulmonary disease, unspecified; I35.0 Nonrheumatic aortic (valve) stenosis; I87.8 Other specified disorders of veins; N18.30 Chronic kidney disease, stage 3 unspecified; E11.22 Type 2 diabetes mellitus with diabetic chronic kidney disease; I50.42 Chronic combined systolic (congestive) and diastolic (congestive) heart failure; I13.0 Hypertensive heart and chronic kidney disease with heart failure and stage 1 through stage 4 chronic kidney disease, or unspecified chronic kidney disease; D64.9 Anemia, unspecified; E16.4 Increased secretion of gastrin; G47.33 Obstructive sleep apnea (adult) (pediatric); Z85.46 Personal history of malignant neoplasm of prostate; Z87.891 Personal history of nicotine dependence
CPT/HCPCS: 36415; 36416; 71045; 73630; 80048; 80053; 81001; 82550; 82962; 83735; 83880; 84484; 85025; 93005; 96360; 96361; 96372; 99285; C8929; G0378; J1644; J1815 ×2; J3475; J8999; Q9956

== ENCOUNTER 2020-07-13 13:06 | Outpatient (CLI) | payer OTHER, SELFPAY | END 2020-07-13 13:07 | disposition home or self-care (01) | LOC: WOUND 13:08 | PROVIDERS: PCP Nurse Practitioner; Visit Provider Thoracic Surgery (Cardiothoracic Vascular Surgery) | DX: E11.621 Type 2 diabetes mellitus with foot ulcer (principal); L97.512 Non-pressure chronic ulcer of other part of right foot with fat layer exposed; L97.521 Non-pressure chronic ulcer of other part of left foot limited to breakdown of skin | CPT/HCPCS: 11042 ==

== ENCOUNTER 2020-07-24 13:14 | Outpatient (CLI) | payer OTHER, MEDICARE, SELFPAY ==
[2020-07-24] MEDS: octreotide LAR depot 20 mg Kit 40 MG IM (14:20)
== END 2020-07-24 13:15 | disposition home or self-care (01) ==
LOC: ONCMED 13:16
PROVIDERS: PCP Nurse Practitioner; Visit Provider Nurse Practitioner
DX: C7A.8 Other malignant neuroendocrine tumors (principal); E16.4 Increased secretion of gastrin; N18.9 Chronic kidney disease, unspecified; E66.9 Obesity, unspecified; I10 Essential (primary) hypertension; E78.5 Hyperlipidemia, unspecified; E11.9 Type 2 diabetes mellitus without complications; I25.10 Atherosclerotic heart disease of native coronary artery without angina pectoris; M19.90 Unspecified osteoarthritis, unspecified site; Z85.038 Personal history of other malignant neoplasm of large intestine; D64.9 Anemia, unspecified; Z79.818 Long term (current) use of other agents affecting estrogen receptors and estrogen levels
CPT/HCPCS: 96372; J2353

== ENCOUNTER 2020-07-27 13:07 | Outpatient (CLI) | payer MEDICARE, SELFPAY | END 2020-07-27 13:08 | disposition home or self-care (01) | LOC: WOUND 13:09 | PROVIDERS: PCP Nurse Practitioner; Visit Provider Thoracic Surgery (Cardiothoracic Vascular Surgery) | DX: E11.621 Type 2 diabetes mellitus with foot ulcer (principal); L97.512 Non-pressure chronic ulcer of other part of right foot with fat layer exposed; E11.622 Type 2 diabetes mellitus with other skin ulcer; L97.821 Non-pressure chronic ulcer of other part of left lower leg limited to breakdown of skin | CPT/HCPCS: 11042; 97597 ==

== ENCOUNTER 2020-08-10 12:59 | Outpatient (CLI) | payer OTHER, SELFPAY | END 2020-08-10 13:00 | disposition home or self-care (01) | LOC: WOUND 13:02 | PROVIDERS: PCP Nurse Practitioner; Visit Provider Thoracic Surgery (Cardiothoracic Vascular Surgery) | DX: E11.621 Type 2 diabetes mellitus with foot ulcer (principal); L97.512 Non-pressure chronic ulcer of other part of right foot with fat layer exposed | CPT/HCPCS: 11042 ==

== ENCOUNTER 2020-08-21 13:55 | Outpatient (CLI) | payer OTHER, SELFPAY ==
[2020-08-21] MEDS: octreotide LAR depot 20 mg Kit 40 MG IM (14:30)
[2020-08-21 14:50] LABS: Basophils % 0.6 %; Eosinophils # 0.1 10^3/uL (0.0-0.8); Eosinophils % 1.1 %; Hematocrit 29.1 % (42.0-52.0); Hemoglobin 8.9 g/dL (11.7-16.6); Lymphocytes % 15.2 %; Mean Corpuscular HGB Conc 30.6 g/dL (30.0-36.0); Mean Corpuscular Hemoglobin 30.2 pg (28.0-34.0); Mean Corpuscular Volume 98.6 fL (80-94); Mean Platelet Volume 11.1 fL (7.4-10.4); Monocytes # 0.3 10^3/uL (0.2-0.9); Monocytes % 5.3 %; Neutrophils # 4.93 10^3/uL (1.8-7.7); Neutrophils % 77.5 %; Nucleated Red Blood Cells % 0 %; Platelet Count 196 10^3/cmm (130-400); Red Blood Count 2.95 10^6/uL (4.1-5.3); White Blood Count 6.4 10^3/uL (4.0-10.0)
[2020-08-21 15:33] LABS: Alanine Aminotransferase 8 U/L (0-41); Albumin Level 3.7 g/dL (3.5-5.2); Alkaline Phosphatase 81 IU/L (40-130); Anion Gap 18.9 (5-19); Aspartate Amino Transferase 13 U/L (0-40); Blood Urea Nitrogen 52 mg/dL (8-23); Calcium 7.4 mg/dL (8.5-10.5); Carbon Dioxide 22 mmol/L (22-29); Chloride 100 mmol/L (98-107); Ferritin 439 ng/mL (30-400); Globulin 3.3 g/dL (1.3-4.6); Glucose 281 mg/dL (65-115); Iron 41 ug/dL (59-158); Osmolality Calculated 306 mOsm/kg (285-295); Percent Saturation 18.7 % (20-50); Potassium 4.9 mmol/L (3.5-5.1); Sodium 136 mmol/L (136-145); Total Bilirubin 0.2 mg/dL (0.15-1.2); Total Iron Binding Capacity 219 mcg/dl; Unsaturated Iron Binding 178 ug/dL (112-347)
[2020-08-30 12:03] LABS: Chromogranin A LC/MS/MS 1080 ng/mL (ADULTS: <311)
== END 2020-08-21 13:56 | disposition home or self-care (01) ==
PROVIDERS: PCP Nurse Practitioner; Visit Provider Nurse Practitioner
DX: C7A.8 Other malignant neuroendocrine tumors (principal); E16.4 Increased secretion of gastrin; N18.9 Chronic kidney disease, unspecified; E66.9 Obesity, unspecified; I10 Essential (primary) hypertension; E78.5 Hyperlipidemia, unspecified; E11.9 Type 2 diabetes mellitus without complications; I25.10 Atherosclerotic heart disease of native coronary artery without angina pectoris; M19.90 Unspecified osteoarthritis, unspecified site; Z85.038 Personal history of other malignant neoplasm of large intestine; D64.9 Anemia, unspecified; Z79.818 Long term (current) use of other agents affecting estrogen receptors and estrogen levels
CPT/HCPCS: 36415; 80053; 82728; 83540; 83550; 85025; 86316; 96372; J2353

== ENCOUNTER 2020-08-31 12:52 | Outpatient (CLI) | payer OTHER, SELFPAY | END 2020-08-31 12:53 | disposition home or self-care (01) | PROVIDERS: PCP Nurse Practitioner; Visit Provider Thoracic Surgery (Cardiothoracic Vascular Surgery) | DX: E11.621 Type 2 diabetes mellitus with foot ulcer (principal); L97.512 Non-pressure chronic ulcer of other part of right foot with fat layer exposed; E11.622 Type 2 diabetes mellitus with other skin ulcer; L97.821 Non-pressure chronic ulcer of other part of left lower leg limited to breakdown of skin | CPT/HCPCS: 11042 ==

== ENCOUNTER 2020-09-01 15:34 | Emergency (ER) | payer OTHER, MEDICARE, SELFPAY ==
--- NOTE | 2020-09-01 16:07 | XRR_ITS ---
PROCEDURE INFORMATION: Exam: XR Left Knee Exam date and time: 09/01/2020 4:07 PM Age: 80 years old Clinical indication: Pain; Knee; Left TECHNIQUE: Imaging protocol: XR Left knee. Views: 3 views. Total images: 3 COMPARISON: No relevant prior studies available. FINDINGS: Bones/joints: Moderate joint effusion. No visible fracture, subluxation or dislocation. Severe primary osteoarthritis with lateral joint space height loss. Hypertrophic spurring and eburnation. Osteopenia/osteoporosis. Soft tissues: Soft tissues without evidence of edema, swelling, contusion, emphysema, or radiopaque foreign body. Vasculature: Arteriosclerosis. Other findings: Obesity. XR/XR knee LT 3V* 40040 IMPRESSION: 1. Moderate joint effusion. 2. Severe primary osteoarthritis.
[2020-09-01 16:18] VITALS: BP 174/80; PULSE 81; RESP 16; TEMP 37.1; O2SAT 92; BMI 47.2
--- NOTE | 2020-09-01 17:02 | ED_ITS ---
HPI - Extremity Problem General: Chief complaint: Extremity Injury, Lower Stated complaint: L knee pain/injury Time Seen by Provider: 09/01/20 17:02 History of Present Illness: HPI Narrative: Patient is a 80-year-old male comes to the ED with a left knee injury. Patient says injury occurred yesterday. He says he was using a scooter and going up the ramp for his house and he had his left leg outside of the scooter and left leg got caught while scooter was moving forward causing him to twist his left knee. This morning he was able to bear weight on it but it did cause some pain. He rates his pain an 8 out of 10. Patient has a scooter for ambulation. Associated symptoms: Deny chest pain, fever(s) or rash Review of Systems Const: Denies: fever(s), chills or fatigue Eyes: Denies: change in vision or eye discomfort ENMT: Denies: throat pain, odynophagia, nasal discharge or nasal congestion Card: Denies: chest pain, palpitations, edema, swelling of feet/ankles, dyspnea on exertion or orthopnea Resp: Denies: dyspnea, productive cough or non-productive cough GI: Denies: abdominal pain, nausea, vomiting, diarrhea, constipation or hematochezia : Denies: flank pain, difficulty urinating, dysuria or hematuria Musc: Reports: extremity pain (left knee pain); Denies: neck pain, back pain or extremity swelling Skin/Breast: Denies: rash or new lesions Neuro: Denies: headache(s), numbness in extremities or weakness in extremities PFS ED PFSH: Medical History Anemia Aortic stenosis Chest pain Chronic kidney disease, stage II (mild) COPD (chronic obstructive pulmonary disease) Coronary disease Coronary stent patent Dyslipidemia GERD (gastroesophageal reflux disease) Hypertension Insulin dependent diabetes mellitus Mild aortic stenosis Morbid obesity Neuroendocrine tumor Non-STEMI (non-ST elevated myocardial infarction) Pancreatic tumor Peripheral vascular disease With evidence of carotid artery disease especially on the right. Prostate cancer Renal mass Sleep apnea Systolic and diastolic CHF, chronic Type 2 diabetes mellitus Venous stasis Shila-Hernandez syndrome Surgical History H/O prostatectomy Family History Other Hyperlipidemia Hypertension Denies family history of Cancer Social History Smoking and tobacco status: former smoker Caregiver/support person: Yes (Daughter) Household members: caregiver Housing: House Marital status: Single Physical Exam Const: COMMON NORMALS: no acute distress, patient oriented x3 and alert GENERAL APPEARANCE: cooperative NUTRITIONAL APPEARANCE: obese HENMT: COMMON NORMALS: normocephalic HEAD & SCALP: normocephalic MOUTH: Normal oral and palatal mucosa present THROAT: posterior oropharynx normal and uvula midline Neck/C-Spine: COMMON NORMALS: supple GENERAL: Yes normal visual inspection Resp: COMMON NORMALS: normal respiratory effort, No retractions, No use of accessory muscles and clear to auscultation bilaterally AUSCULTATION: clear to auscultation bilaterally Cardio: COMMON NORMALS: regular rate, regular rhythm, S1 normal heart sound present, S2 normal heart sound present, No gallops present (Cardio), No clicks present (Cardio), No murmurs present (Cardio) and Peripheral pulses 2+ throughout RATE: regular rate RHYTHM: regular rhythm HEART SOUNDS: S1 normal heart sound present and S2 normal heart sound present PERIPHERAL PUL SES: Peripheral pulses 2+ throughout GI: COMMON NORMALS: Normal to inspection, nondistended, normoactive bowel sounds present, Soft to palpation, non-tender and no masses PALPATION: Yes Soft to palpation : COMMON NORMALS: Yes no CVA tenderness BLADDER/KIDNEY EXAM: Yes no CVA tenderness Back/Pelvis: COMMON NORMALS: no CVA tenderness Extremity: GENERAL: Yes normal exam except as noted LEFT LOWER EXTREMITY: Yes knee joint Left knee: Yes inspection (swelling, but no deformity), Yes palpation (tender on lateral aspect of knee), Yes ROM (limited do to pain) and Yes neurovascular exam (pedal pulse 1+) Neuro: COMMON NORMALS: patient oriented x3 and moves all extremities SENSORIUM/ORIENTATION: Yes alert Skin: GENERAL SKIN EXAM: dry skin Course Vital Signs: Vital signs: Vital Signs Temperature 98.8 F 09/01/20 16:18 Pulse Rate 81 09/01/20 18:05 Respiratory Rate 16 09/01/20 18:05 Blood Pressure 174/80 09/01/20 16:18 Pulse Oximetry 97 09/01/20 18:05 MDM - Extremity (Nontraumatic) MDM Narrative: Medical decision making narrative: Patient is an 80-year-old male who comes to the ED with left knee injury. Patient uses a scooter to ambulate. Left knee x-ray showed a moderate joint effusion with severe primary arthritis. Patient says he has seen orthopedics before about his knees but they would not operate on him due to his obesity. Exam showed some tenderness to palpation over the lateral aspect of knee with some swelling. Patient diagnosed with left knee joint effusion. He was told to follow-up with his PCP in 5 to 7 days for reevaluation. Return to ED precautions given. Patient was discharged with no written prescription for hydrocodone 5/325 mg 8 tablets for pain. Patient understood and agreed with plan. Imaging Data^: Xray Ortho: Attestation: I personally reviewed and interpreted this imaging study as follows: Radiologist's impression: [address] [address] XRay Report Signed Patient: Marco Antonio Valadez Unit #: [id number] : [id number] Age/Sex: 80 / M ADM Date: 09/01/20 Loc: ER Room/Bed: Attending Dr: Ordering Provider/Ordering MD: Lisandro Lomas DO Date of Service: 09/01/20 Procedure(s): XR knee LT 3V* 25037 Accession Number(s): [id number] Report Number: [id number] PROCEDURE INFORMATION: Exam: XR Left Knee Exam date and time: 09/01/2020 4:07 PM Age: 80 years old Clinical indication: Pain; Knee; Left TECHNIQUE: Imaging protocol: XR Left knee. Views: 3 views. Total images: 3 COMPARISON: No relevant prior studies available. FINDINGS: Bones/joints: Moderate joint effusion. No visible fracture, subluxation or dislocation. Severe primary osteoarthritis with lateral joint space height loss. Hypertrophic spurring and eburnation. Osteopenia/osteoporosis. Soft tissues: Soft tissues without evidence of edema, swelling, contusion, emphysema, or radiopaque foreign body. Vasculature: Arteriosclerosis. Other findings: Obesity. XR/XR knee LT 3V* 67638 IMPRESSION: 1. Moderate joint effusion. 2. Severe primary osteoarthritis. Dictated By: Tucker Lobato Signed By: Tucker Lobato Signed Date/Time: 09/01/201717 DD/ 15 Discharge Plan Discharge Patient Disposition: Home Clinical Impression: Effusion of knee joint, left Osteoarthritis of left knee Qualifiers: Osteoarthritis type: primary Qualified Code(s): M17.12 - Unilateral primary osteoarthritis, left knee Condition: Stable Prescriptions: No Action fluticasone propionate [Flonase Allergy Relief] 50 mcg/actuation spray,suspension 2 spray INTRANASAL DAILY Qty: 9.9 RF: 0 isosorbide mononitrate 60 mg tablet extended release 24 hr 90 mg PO DAILY RF: 0 torsemide 20 mg Tablet 20 mg PO DAILY RF: 0 nitroglycerin 0.4 mg Tablet, Sublingual 0.4 mg SUBLINGUAL Q5M RF: 0 gabapentin 100 mg Capsule 100 mg PO TID RF: 0 bicalutamide 50 mg Tablet 50 mg PO DAILY RF: 0 duloxetine 20 mg Capsule,Delayed Release(Dr/Ec) 20 mg PO DAILY RF: 0 clopidogrel 75 mg Tablet 75 mg PO DAILY RF: 0 insulin aspart U-100 5 units auto-injector See Rx Instructions .ROUTE .COMPLEX RF: 0 Lantus U-100 Insulin 100 unit/mL Solution 55 unit SUBCUT DAILY RF: 0 albuterol sulfate 90 mcg/actuation Hfa Aerosol Inhaler 2 puff inhalation QID PRN (Reason: Shortness Of Breath) RF: 0 capsaicin See Rx Instructions .ROUTE .COMPLEX RF: 0 hydrophilic cream Cream 1 applic TOPICAL DAILY RF: 0 atorvastatin 40 mg Tablet 20 mg PO BEDTIME Qty: 30 RF: 0 aspirin [Adult Low Dose Aspirin] 81 mg tablet,delayed release (DR/EC) 81 mg PO DAILY Qty: 30 RF: 0 pantoprazole 20 mg Tablet,Delayed Release (Dr/Ec) 20 mg PO BID RF: 0 calcium 600 mg Capsule 600 mg PO DAILY RF: 0 acetaminophen-codeine 300-30 mg Tablet 1 - 2 tab PO BEDTIME PRN (Reason: Pain) RF: 0 ergocalciferol (vitamin D2) 50,000 unit Tablet 50,000 unit PO Q7D RF: 0 ipratropium bromide 21 mcg (0.03 %) [place],Non-Aerosol 2 spray INTRANASAL TID RF: 0 Vitamin D3 25 mcg (1,000 unit) Tablet,Chewable 25 mcg PO DAILY RF: 0 Discharge Orders: Discharge ED (Routine); Ordered 09/01/20 Ordered By: Marco Antonio Wright Referrals: Leslie Villalta FNP [Primary Care Provider] - Discharge Diet: Regular Discharge Activity: Increase activity as tolerated Patient Instructions: Osteoarthritis (ED), Knee Effusion (ED), Opioid Safety Activity Restrictions/Additional Instructions: Follow-up with medical provider as directed in 7 to 10 days reevaluation. Rest, ice and elevate left knee. Take medications as prescribed. Return to the ER or your medical provider if condition worsens. Please read and understand discharge instructions. Thank you for choosing [facility] for your healthcare needs today. Please realize this is an emergency room and that we are providing you with a medical screening exam and this may not be complete and all inclusive of all the testing and or work up that you may need to determine your ailment or severity of your illness. It is very important that you follow up as instructed or that you return to the Emergency Department should you have concerns or if your condition changes or worsens in any way. Coding Level of Care Code ED Occupational Safety Specialist for [place] Exam Comprehensive
[2020-09-01 18:05] VITALS: PULSE 81; RESP 16; O2SAT 97
[2020-09-01] MEDS: HYDROcodone-acetaminophen 5-325 mg Tablet 1 TAB PO (18:08)
== END 2020-09-01 18:10 | disposition home or self-care (01) ==
PROVIDERS: Emergency Provider Physician Assistant; PCP Nurse Practitioner
DX: M17.12 Unilateral primary osteoarthritis, left knee (principal); M25.462 Effusion, left knee; I12.9 Hypertensive chronic kidney disease with stage 1 through stage 4 chronic kidney disease, or unspecified chronic kidney disease; E11.22 Type 2 diabetes mellitus with diabetic chronic kidney disease; N18.2 Chronic kidney disease, stage 2 (mild); J44.9 Chronic obstructive pulmonary disease, unspecified; I25.10 Atherosclerotic heart disease of native coronary artery without angina pectoris; I25.2 Old myocardial infarction; E78.5 Hyperlipidemia, unspecified; Z79.4 Long term (current) use of insulin; Z79.82 Long term (current) use of aspirin; E66.01 Morbid (severe) obesity due to excess calories; Z68.42 Body mass index [BMI] 45.0-49.9, adult; Z87.891 Personal history of nicotine dependence; Z95.5 Presence of coronary angioplasty implant and graft
CPT/HCPCS: 73562; 99283

== ENCOUNTER 2020-09-14 13:10 | Outpatient (CLI) | payer OTHER, SELFPAY | END 2020-09-14 13:11 | disposition home or self-care (01) | LOC: WOUND 13:11 | PROVIDERS: PCP Nurse Practitioner; Visit Provider Thoracic Surgery (Cardiothoracic Vascular Surgery) | DX: E11.621 Type 2 diabetes mellitus with foot ulcer (principal); L97.512 Non-pressure chronic ulcer of other part of right foot with fat layer exposed | CPT/HCPCS: 11042 ==

== ENCOUNTER 2020-09-21 13:46 | Outpatient (CLI) | payer OTHER, SELFPAY ==
[2020-09-21] MEDS: octreotide LAR depot 20 mg Kit 40 MG IM (14:50)
== END 2020-09-21 13:47 | disposition home or self-care (01) ==
LOC: ONCMED 13:51
PROVIDERS: PCP Nurse Practitioner; Visit Provider Internal Medicine Medical Oncology
DX: E16.4 Increased secretion of gastrin (principal); C7A.098 Malignant carcinoid tumors of other sites; C7B.01 Secondary carcinoid tumors of distant lymph nodes; Z79.899 Other long term (current) drug therapy
CPT/HCPCS: 96372; J2353

== ENCOUNTER → 2020-09-27 13:27 | Outpatient (BNVA) | payer OTHER, SELFPAY | PROVIDERS: PCP Nurse Practitioner; Referring Provider Nurse Practitioner Family; Visit Provider Anesthesiology | DX: M54.5 Low back pain (principal); Z79.891 Long term (current) use of opiate analgesic | CPT/HCPCS: 99203 ==

== ENCOUNTER 2020-09-28 12:59 | Outpatient (CLI) | payer OTHER, SELFPAY | END 2020-09-28 13:00 | disposition home or self-care (01) | LOC: WOUND 13:00 | PROVIDERS: PCP Nurse Practitioner; Visit Provider Thoracic Surgery (Cardiothoracic Vascular Surgery) | DX: I96 Gangrene, not elsewhere classified (principal); E11.621 Type 2 diabetes mellitus with foot ulcer; L97.512 Non-pressure chronic ulcer of other part of right foot with fat layer exposed | CPT/HCPCS: 11042 ==

== ENCOUNTER 2020-10-05 18:42 | Emergency (ER) | payer MEDICARE, OTHER, SELFPAY ==
[2020-10-05 19:11] VITALS: BP 111/65; PULSE 98; RESP 16; TEMP 36.6; O2SAT 96; BMI 46.5
--- NOTE | 2020-10-05 19:23 | W.ED.EXTPRO ---
HPI - Extremity Problem General: Chief complaint: Extremity Injury, Lower Stated complaint: Rt Foot Has Sore on it Time Seen by Provider: 10/05/20 19:23 History of Present Illness: HPI Narrative: 80-year-old male patient comes in with a chronic ulcer to the right heel that was hurting today. Patient is cared for through home health and wound care clinic. Patient has a wound to the ball of the foot and to the heel of the right foot. Patient reports the right heel 1 was paining him today. Patient appears well. Patient appears no acute distress. Review of Systems General: Reports: 10 or more systems reviewed and unremarkable except in HPI and below Skin/Breast: Reports: other (Chronic ulcers right foot.) PFS ED PFSH: Medical History (Updated 10/05/20 @ 20:05 by BEVERLY Haro) Anemia Aortic stenosis Chest pain Chronic kidney disease, stage II (mild) COPD (chronic obstructive pulmonary disease) Coronary disease Coronary stent patent Dyslipidemia Encounter for narcotic contract discussion GERD (gastroesophageal reflux disease) Hypertension Insulin dependent diabetes mellitus Mild aortic stenosis Morbid obesity Neuroendocrine tumor Non-STEMI (non-ST elevated myocardial infarction) Pancreatic tumor Peripheral vascular disease With evidence of carotid artery disease especially on the right. Prostate cancer Renal mass Sleep apnea Systolic and diastolic CHF, chronic Type 2 diabetes mellitus Venous stasis Shila-Hernandez syndrome Surgical History H/O prostatectomy Family History Other Hyperlipidemia Hypertension Denies family history of Cancer Social History (Updated 09/27/20 @ 14:37 by Jordyn Lion LPN) Smoking and tobacco status: never smoked Second hand smoke exposure: No Alcohol intake: never Caregiver/support person: Yes (Daughter) Household members: caregiver Housing: House Marital status: Single History of recent travel: No Physical Exam Const: COMMON NORMALS: no acute distress and patient oriented x3 GENERAL APPEARANCE: cooperative HENMT: COMMON NORMALS: normocephalic and Normal external nose present HEAD & SCALP: normal to inspection and normocephalic NOSE: Normal external nose present MOUTH: Normal oral and palatal mucosa present Eye: GENERAL EYE: appearance normal, both eyes and all related structures Neck/C-Spine: COMMON NORMALS: full ROM Lymph: LYMPHATIC: no lymphadenopathy noted Chest: COMMONS NORMALS: normal inspection of the chest Resp: COMMON NORMALS: normal respiratory effort EFFORT & INSPECTION: Yes able to speak in complete sentences Cardio: COMMON NORMALS: regular rate and regular rhythm RATE: regular rate RHYTHM: regular rhythm GI: COMMON NORMALS: non-tender Extremity: COMMON NORMALS: normal to inspection Neuro: COMMON NORMALS: patient oriented x3 and moves all extremities Psych: COMMON NORMALS: mental status grossly normal and cooperative Skin: NARRATIVE SKIN EXAM: Patient has 2 chronic foot ulcers to the right medial foot. One is at the ball of the foot and the other is at the heel of the foot. 1 to the ball has pink granulated tissue in the center without any redness or swelling around it. The 1 to the heel has a dry center with no redness or swelling around it. Incidentally I removed a splinter from the heel of the foot. Course Vital Signs: Vital signs: Vital Signs Temperature 98 F 10/05/20 19:11 Pulse Rate 98 10/05/20 19:11 Respiratory Rate 16 10/05/20 19:11 Blood Pressure 111/65 10/05/20 19:11 Pulse Oximetry 96 10/05/20 19:11 MDM - Extremity (Nontraumatic) MDM Narrative: Medical decision making narrative: Patient comes in today for evaluation of foot wound. Patient has 2 chronic wounds to his right foot he is concerned about the heel one due to it being more painful today. On exam patient has 2 lesions 1 to the ball of the foot that has pink granulation tissue centralized with no surrounding redness. It is approximately 5 mm. Patient also has 1 to the heel of his foot that is also approximately 5 mm with a dry center. Neither wounds have any significant redness or swelling to it. Pulses are intact to the extremity. Differential diagnosis includes infection, chronic foot wound, osteomyelitis. X-ray of the foot indicates no significant osteomyelitis at this time. Reviewed exam with patient with recommendations for continuing care we will add some doxycycline 100 mg twice a day for 7 days. Patient reported understanding and agreed to plan. Discharge Plan Discharge Patient Disposition: Home Clinical Impression: Foot ulcer, right Qualifiers: Non-pressure ulcer stage: limited to breakdown of skin Qualified Code(s): L97.511 - Non-pressure chronic ulcer of other part of right foot limited to breakdown of skin Condition: Stable Prescriptions: New doxycycline monohydrate 100 mg capsule 100 mg PO BID 7 Days Qty: 14 RF: 0 No Action fluticasone propionate [Flonase Allergy Relief] 50 mcg/actuation spray,suspension 2 spray INTRANASAL DAILY Qty: 9.9 RF: 0 isosorbide mononitrate 60 mg tablet extended release 24 hr 90 mg PO DAILY RF: 0 torsemide 20 mg Tablet 20 mg PO DAILY RF: 0 nitroglycerin 0.4 mg Tablet, Sublingual 0.4 mg SUBLINGUAL Q5M RF: 0 gabapentin 100 mg Capsule 100 mg PO TID RF: 0 bicalutamide 50 mg Tablet 50 mg PO DAILY RF: 0 duloxetine 20 mg Capsule,Delayed Release(Dr/Ec) 20 mg PO DAILY RF: 0 clopidogrel 75 mg Tablet 75 mg PO DAILY RF: 0 insulin aspart U-100 5 units auto-injector See Rx Instructions .ROUTE .COMPLEX RF: 0 Lantus U-100 Insulin 100 unit/mL Solution 55 unit SUBCUT DAILY RF: 0 albuterol sulfate 90 mcg/actuation Hfa Aerosol Inhaler 2 puff inhalation QID PRN (Reason: Shortness Of Breath) RF: 0 capsaicin See Rx Instructions .ROUTE .COMPLEX RF: 0 hydrophilic cream Cream 1 applic TOPICAL DAILY RF: 0 atorvastatin 40 mg Tablet 20 mg PO BEDTIME Qty: 30 RF: 0 aspirin [Adult Low Dose Aspirin] 81 mg tablet,delayed release (DR/EC) 81 mg PO DAILY Qty: 30 RF: 0 pantoprazole 20 mg Tablet,Delayed Release (Dr/Ec) 20 mg PO BID RF: 0 calcium 600 mg Capsule 600 mg PO DAILY RF: 0 acetaminophen-codeine 300-30 mg Tablet 1 - 2 tab PO BEDTIME PRN (Reason: Pain) RF: 0 ergocalciferol (vitamin D2) 50,000 unit Tablet 50,000 unit PO Q7D RF: 0 ipratropium bromide 21 mcg (0.03 %) [place],Non-Aerosol 2 spray INTRANASAL TID RF: 0 Vitamin D3 25 mcg (1,000 unit) Tablet,Chewable 25 mcg PO DAILY RF: 0 Discharge Orders: Discharge ED (Routine); Ordered 10/05/20 Ordered By: Hunter Anderson Referrals: Leslie Villalta, RESIST COATER DEVELOPER [Primary Care Provider] - Discharge Diet: Usual diet Discharge Activity: Increase activity as tolerated Patient Instructions: Diabetic Foot Ulcers (ED), Opioid Safety Activity Restrictions/Additional Instructions: Monitor site for worsening redness and swelling. Take antibiotic as directed for the next 7 days. Follow-up with dispute resolution specialist at next appointment. Continue with routine care. 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
--- NOTE | 2020-10-05 19:30 | XRR_ITS ---
PROCEDURE INFORMATION: Exam: XR Right Foot Exam date and time: 10/05/2020 7:30 PM Age: 80 years old Clinical indication: Condition or disease; Other: Wound/ulcer; Patient HX: Ulcer x 3months right heel; Additional info: Wound ulcer TECHNIQUE: Imaging protocol: XR Right foot. Views: 3 or more views. COMPARISON: No relevant prior studies available. FINDINGS: Bones/joints: No focal lytic, aggressive bone lesion. Hallux valgus deformity. Large bunion. No fractures. No joint space dislocation. First digit through 5th digit hammertoe deformities. Soft tissues: Diffuse soft tissue edema. No soft tissue gas identified. Small ulcer on the medial side of the forefoot. XR/XR foot RT min 3V* [id number] IMPRESSION: Negative for osteomyelitis.
[2020-10-05 20:45] VITALS: PULSE 97; RESP 18; O2SAT 96
[2020-10-05] MEDS: doxycycline 100 mg Tablet PO (20:45)
== END 2020-10-05 20:20 | disposition home or self-care (01) ==
PROVIDERS: Emergency Provider Nurse Practitioner Family; PCP Nurse Practitioner
DX: L97.511 Non-pressure chronic ulcer of other part of right foot limited to breakdown of skin (principal); Z79.02 Long term (current) use of antithrombotics/antiplatelets; Z79.82 Long term (current) use of aspirin; Z79.4 Long term (current) use of insulin; J44.9 Chronic obstructive pulmonary disease, unspecified; I13.0 Hypertensive heart and chronic kidney disease with heart failure and stage 1 through stage 4 chronic kidney disease, or unspecified chronic kidney disease; E11.22 Type 2 diabetes mellitus with diabetic chronic kidney disease; N18.2 Chronic kidney disease, stage 2 (mild); E78.5 Hyperlipidemia, unspecified; I25.2 Old myocardial infarction; Z85.46 Personal history of malignant neoplasm of prostate; I50.40 Unspecified combined systolic (congestive) and diastolic (congestive) heart failure
CPT/HCPCS: 73630; 99283

== ENCOUNTER 2020-10-12 12:59 | Outpatient (CLI) | payer OTHER, SELFPAY | END 2020-10-12 13:00 | disposition home or self-care (01) | LOC: WOUND 13:00 | PROVIDERS: PCP Nurse Practitioner; Visit Provider Nurse Practitioner Family | DX: E11.621 Type 2 diabetes mellitus with foot ulcer (principal); L97.512 Non-pressure chronic ulcer of other part of right foot with fat layer exposed; L97.412 Non-pressure chronic ulcer of right heel and midfoot with fat layer exposed | CPT/HCPCS: 11042 ==

== ENCOUNTER 2020-10-23 15:12 | Outpatient (CLI) | payer OTHER, SELFPAY ==
[2020-10-23] MEDS: octreotide LAR depot 20 mg Kit 40 MG IM (15:56)
== END 2020-10-23 15:13 | disposition home or self-care (01) ==
LOC: ONCMED 15:15
PROVIDERS: PCP Nurse Practitioner; Visit Provider Internal Medicine Medical Oncology
DX: E16.4 Increased secretion of gastrin (principal); C7A.098 Malignant carcinoid tumors of other sites; C7B.01 Secondary carcinoid tumors of distant lymph nodes; D50.9 Iron deficiency anemia, unspecified; Z79.899 Other long term (current) drug therapy
CPT/HCPCS: 96372; J2353

== ENCOUNTER 2020-10-26 13:04 | Outpatient (CLI) | payer OTHER, SELFPAY | END 2020-10-26 13:05 | disposition home or self-care (01) | LOC: WOUND 13:05 | PROVIDERS: PCP Nurse Practitioner; Visit Provider Emergency Medicine | DX: E11.621 Type 2 diabetes mellitus with foot ulcer (principal); L97.512 Non-pressure chronic ulcer of other part of right foot with fat layer exposed; L97.412 Non-pressure chronic ulcer of right heel and midfoot with fat layer exposed | CPT/HCPCS: 11042; 99212 ==

== ENCOUNTER 2020-11-09 13:09 | Outpatient (CLI) | payer OTHER, SELFPAY | END 2020-11-09 13:10 | disposition home or self-care (01) | LOC: WOUND 13:10 | PROVIDERS: PCP Nurse Practitioner Family; Visit Provider Nurse Practitioner Family | DX: E11.621 Type 2 diabetes mellitus with foot ulcer (principal); L97.512 Non-pressure chronic ulcer of other part of right foot with fat layer exposed; L97.412 Non-pressure chronic ulcer of right heel and midfoot with fat layer exposed | CPT/HCPCS: 11042 ==

== ENCOUNTER 2020-11-10 12:16 | Emergency (ER) | payer OTHER, MEDICARE, SELFPAY ==
[2020-11-10] VITALS (8 sets, daily range): BP systolic 142–158; BP diastolic 78–98; PULSE 72–92; RESP 17–21; TEMP 36.7; O2SAT 94–99; BMI 45.8
--- NOTE | 2020-11-10 12:44 | CT_ITS ---
WS: [id number] CT CERVICAL SPINE HISTORY: fall TECHNIQUE: Contiguous 2.5 mm axial imaging performed through the entire cervical spine. Sagittal and coronal reformats also performed. All CT scans at [facility] use at least one of these dose o ptimization techniques: automated exposure control; mA and/or kV adjustment per patient size (include s targeted exams where dose is matched to clinical indication); or iterative reconstruction. DLP: 797.65 mGy.cm COMPARISON: None available. Posterior alignment is normal. No acute fractures. Moderate degenerative disc disease and osteophytos is throughout the cervical spine. Partial fusion across the RIGHT facet of C2-3 and on the LEFT at C3 -4. Lateral masses are aligned odontoid is intact. Multilevel facet joint arthritis. Bilateral foraminal narrowing at multiple levels. No high-grade loyda tral stenosis. CT/CT cervical spin wo con* [id number] IMPRESSION: 1. No acute cervical spine fracture. 2. Facet joint arthritis and degenerative disc disease and moderate as describ ed above. No acute fracture.
--- NOTE | 2020-11-10 12:45 | XR_ITS ---
WS: [id number] PORTABLE CHEST HISTORY: dyspnea/cough COMPARISON: 07/05/2020 Diffuse mild venous congestion and edema. Benign granuloma in the RIGHT lower lobe. No focal consolid ation or pneumonia. No pleural effusion or pneumothorax. Cardiac size: Mildly enlarged cardiac silhouette. Mediastinum/Aorta: Mild atherosclerosis aorta. Diffuse osteopenia. XR/XR chest 1V portable [id number] IMPRESSION: 1. Mild pulmonary congestion. 2. Mild cardiomegaly. 3. No pneumonia.
--- NOTE | 2020-11-10 12:46 | CT_ITS ---
WS: [id number] CT HEAD NONCONTRAST HISTORY: fall TECHNIQUE: Contiguous axial imaging performed through the brain in 2.5 mm imaging. Bone and soft tiss ue windows. Sagittal and coronal reformats reviewed. All CT scans at [facility] use at least one of these dose optimization techniques: automated exposure control; mA and/or kV adjustment per pa tient size (includes targeted exams where dose is matched to clinical indication); or iterative recon struction. DLP: 1165.28 mGy.cm COMPARISON: None available. No acute intracranial hemorrhage, midline shift or mass effect. Mild atrophy and moderate chronic microvascular ischemic type changes. Remote lacunar infarct in the RIGHT caudate was smaller lacunar infarcts in the basal ganglia and LEFT thalamus. Ventricles: Normal size with no hydrocephalus. Retrocerebellar arachnoid cyst is stable. Paranasal sinuses: Mucous retention cysts L4 the maxillary sinuses. No air-fluid levels. Mastoid air cells: Well pneumatized. Calvarium and scalp: Skull is intact with no soft tissue edema or swelling. CT/CT head wo con* [id number] IMPRESSION: 1. No acute intracranial hemorrhage or edema. 2. Atrophy with moderate chronic microvascular ischemic disease and multiple b ilateral lacunar infarcts in the basal ganglia and LEFT thalamus. 3. No fracture.
--- NOTE | 2020-11-10 13:01 | ED_ITS ---
HPI - Fall General: Chief Complaint: Fall Stated Complaint: FALL, R SIDE CHEST PAIN Time Seen by Provider: 11/10/20 12:23 History of Present Illness: HPI Narrative: 80-year-old male presents emergency room after a fall at home he was down for a couple of hours evidently. He is complaining of left knee pain right shoulder pain and right rib pain. He denies loss consciousness denies any neck pain. He does have a little bit of a bloody nose but it is already stopped. Patient uses arm crutches to ambulate at home and has had a history of multiple falls been in the emergency room with fall several times. MD complaint: fall Onset (ago): minute(s) Fall from: standing Fall witnessed: no Place fall occurred: home Loss of consciousness: None Prolonged down time: yes Symptoms prior to fall: none Context: tripped/slipped Location of injury: head, face and chest Location of injury - extremities: Left: knee and Right: shoulder Quality: aching Associated symptoms-after fall: Reports confusion, difficulty walking and weakness; Denies abdominal pain, chest pain, headache(s), hematuria, lightheadedness, neck pain, numbness, short of breath or vertigo Review of Systems Const: Denies: fever(s), chills, body aches, change in appetite, fatigue or malaise ENMT: Denies: throat pain, ear or mastoid pain, nasal discharge or nasal congestion Card: Denies: chest pain or lightheadedness Resp: Denies: dyspnea, productive cough or non-productive cough GI: Denies: abdominal pain : Denies: hematuria Musc: Denies: neck pain Skin/Breast: Denies: rash or pruritus Neuro: Reports: difficulty walking and confusion; Denies: headache(s) or vertigo PFS ED PFSH: Medical History Anemia Aortic stenosis Chest pain Chronic kidney disease, stage II (mild) COPD (chronic obstructive pulmonary disease) Coronary disease Coronary stent patent Dyslipidemia Encounter for narcotic contract discussion GERD (gastroesophageal reflux disease) Hypertension Insulin dependent diabetes mellitus Mild aortic stenosis Morbid obesity Neuroendocrine tumor Non-STEMI (non-ST elevated myocardial infarction) Pancreatic tumor Peripheral vascular disease With evidence of carotid artery disease especially on the right. Prostate cancer Renal mass Sleep apnea Systolic and diastolic CHF, chronic Type 2 diabetes mellitus Venous stasis Shila-Hernandez syndrome Surgical History H/O prostatectomy Family History Other Hyperlipidemia Hypertension Denies family history of Cancer Social History Smoking and tobacco status: never smoked Second hand smoke exposure: No Alcohol intake: never Caregiver/support person: Yes (Daughter) Household members: caregiver Housing: House Marital status: Single History of recent travel: No Physical Exam Const: COMMON NORMALS: no acute distress GENERAL APPEARANCE: cooperative and comfortable HENMT: COMMON NORMALS: normocephalic, atraumatic and hearing grossly normal bilaterally HEAD & SCALP: normocephalic and atraumatic Neck/C-Spine: COMMON NORMALS: no JVD Resp: COMMON NORMALS: normal respiratory effort, No retractions, No use of accessory muscles and clear to auscultation bilaterally AUSCULTATION: clear to auscultation bilaterally Cardio: COMMON NORMALS: no JVD, regular rate, regular rhythm and No murmurs present (Cardio) RATE: regular rate RHYTHM: regular rhythm GI: COMMON NORMALS: Soft to palpation and No hepatosplenomegaly present AUSCULTATION: Yes normoactive bowel sounds PALPATION: Yes Soft to palpation, No Tenderness to palpation present (GI), No Guarding due to palpation present (GI) and Yes No hepatosplenomegaly present Extremity: COMMON NORMALS: normal to inspection, capillary refill normal, no clubbing, cyanosis or edema, no calf tenderness and no pedal edema Skin: COMMON NORMALS: no rashes or lesions noted GENERAL SKIN EXAM: no rashes or lesions noted Course Vital Signs: Vital signs: Vital Signs Temperature 98.0 F 11/10/20 12:25 Pulse Rate 87 11/10/20 16:36 Respiratory Rate 20 H 11/10/20 16:36 Blood Pressure 153/98 11/10/20 14:59 Pulse Oximetry 96 11/10/20 16:36 MDM - Fall MDM Narrative: Medical decision making narrative: Labs and imaging reviewed as on the chart. No significant fracture is noted we will go and discharge home Tylenol or Profen as needed follow-up as needed Lab Data: Labs: Lab Results 11/10/20 11/10/20 11/10/20 13:49 13:50 13:50 WBC 10.7 10^3/uL H 10 ^3/uL (4.0-10.0) RBC 3.26 10^6/uL L 10 ^6/uL (4.1-5.3) Hgb 9.7 g/dL L g/dL (11.7-16.6) Hct 31.2 % L % (42.0-52.0) MCV 95.7 fl H fl (80-94) MCH 29.8 pg pg (28.0-34.0) MCHC 31.1 g/dL g/dL (30.0-36.0) RDW 12.9 % % (12.1-15.1) Plt Count 270 10^3/cmm 10^3 /cmm (130-400) MPV 11.0 fL H fL (7.4-10.4) Neut % (Auto) 85.2 % % Lymph % (Auto) 8.3 % % [place] % (Auto) 4.0 % % Eos % (Auto) 1.4 % % Baso % (Auto) 0.7 % % Neut # (Auto) 9.09 10^3/uL H 10 ^3/uL (1.8-7.7) Lymph # (Auto) 0.9 10^3/uL 10^3/ uL (0.8-4.8) [place] # (Auto) 0.4 10^3/uL 10^3/ uL (0.2-0.9) Eos # (Auto) 0.2 10^3/uL 10^3/ uL (0.0-0.8) Baso # (Auto) 0.1 10^3/uL 10^3/ uL (0.0-0.1) Nucleated RBC % (a uto) 0 % % Nucleated RBCs # 0.0 /100WBC /100W BC Sodium 138 mmol/L mmol/L (136-145) Potassium 5.4 mmol/L H mmol /L (3.5-5.1) Chloride 102 mmol/L mmol/L (98-107) Carbon Dioxide 22 mmol/L mmol/L (22-29) Anion Gap 19.4 H (5-19) BUN 54 mg/dL H mg/dL (8-23) Creatinine 2.8 mg/dL H mg/dL (0.7-1.2) GFR Calculation Not Reportable Glucose 144 mg/dL H mg/dL (65-115) POC Glucose Calculated Osmolal ity 303 mOsm/kg H mOs m/kg (285-295) Calcium 8.3 mg/dL L mg/dL (8.5-10.5) Total Bilirubin 0.2 mg/dL mg/dL (0.15-1.2) AST 13 U/L U/L (0-40) ALT 14 U/L U/L (0-41) Alkaline Phosphata se 95 IU/L IU/L (40-130) Total Protein 8.1 g/dL g/dL (6.6-8.7) Albumin 3.9 g/dL g/dL (3.5-5.2) Globulin 4.2 g/dL g/dL (1.3-4.6) Urine Color Yellow (Yellow) Urine Appearance Hazy A (CLEAR) Urine pH 5 (5-7) Ur Specific Gravit y 1.020 (1.005-1.030) Urine Protein 3+ H (Negative) Urine Glucose (UA) 1+ H (Normal) Urine Ketones Negative (Negative) Urine Blood 2+ H (Negative) Urine Nitrate Negative (Negative) Urine Bilirubin Neg (Negative) Urine Urobilinogen Norm mg/dL mg/dL (Negative) Ur Leukocyte Sarah ase Negative (Negative) Urine RBC 0-4 /hpf H /hpf (0-2) Urine WBC 5-10 /hpf H /hpf (0-5) Ur Squamous Epith Cells 5-10 /hpf H /hpf (0-5) Amorphous Sediment 1+ /hpf /hpf Urine Bacteria 1+ /hpf H /hpf (NONE) Fine Granular Cast s 0-4 /lpf H /lpf Urine Mucus 1+ /hpf /hpf 11/10/20 15:11 WBC RBC Hgb Hct MCV MCH MCHC RDW Plt Count MPV Neut % (Auto) Lymph % (Auto) [place] % (Auto) Eos % (Auto) Baso % (Auto) Neut # (Auto) Lymph # (Auto) [place] # (Auto) Eos # (Auto) Baso # (Auto) Nucleated RBC % (a uto) Nucleated RBCs # Sodium Potassium Chloride Carbon Dioxide Anion Gap BUN Creatinine GFR Calculation Glucose POC Glucose 149 mg/dL H mg/dL (70-110) Calculated Osmolal ity Calcium Total Bilirubin AST ALT Alkaline Phosphata se Total Protein Albumin Globulin Urine Color Urine Appearance Urine pH Ur Specific Gravit y Urine Protein Urine Glucose (UA) Urine Ketones Urine Blood Urine Nitrate Urine Bilirubin Urine Urobilinogen Ur Leukocyte Sarah ase Urine RBC Urine WBC Ur Squamous Epith Cells Amorphous Sediment Urine Bacteria Fine Granular Cast s Urine Mucus Discharge Plan Discharge Patient Disposition: Home Clinical Impression: Fall Condition: Stable Prescriptions: No Action fluticasone propionate [Flonase Allergy Relief] 50 mcg/actuation spray,suspension 2 spray INTRANASAL DAILY Qty: 9.9 RF: 0 isosorbide mononitrate 60 mg tablet extended release 24 hr 90 mg PO DAILY RF: 0 Flomax 0.4 mg Capsule 0.4 mg PO DAILY RF: 0 pantoprazole 40 mg Tablet,Delayed Release (Dr/Ec) 40 mg PO DAILY RF: 0 Nutritional Drink Liquid 1 ea PO BID RF: 0 torsemide 20 mg Tablet 20 mg PO DAILY RF: 0 nitroglycerin 0.4 mg Tablet, Sublingual 0.4 mg SUBLINGUAL Q5M PRN (Reason: Chest Pain) RF: 0 gabapentin 100 mg Capsule 100 mg PO BEDTIME MDD see pharmacy comment RF: 0 bicalutamide 50 mg Tablet 50 mg PO DAILY RF: 0 duloxetine 20 mg Capsule,Delayed Release(Dr/Ec) 20 mg PO DAILY RF: 0 clopidogrel 75 mg Tablet 75 mg PO DAILY RF: 0 insulin aspart U-100 [Novolog Flexpen U-100 Insulin] 100 unit/mL (3 mL) Insulin Pen See Rx Instructions .ROUTE .COMPLEX Qty: 0 RF: 0 Lantus U-100 Insulin 100 unit/mL Solution 55 unit SUBCUT DAILY RF: 0 albuterol sulfate 90 mcg/actuation Hfa Aerosol Inhaler 2 puff inhalation QID PRN (Reason: Shortness Of Breath) RF: 0 capsaicin See Rx Instructions .ROUTE .COMPLEX RF: 0 hydrophilic cream Cream 1 applic TOPICAL DAILY RF: 0 atorvastatin 40 mg Tablet 20 mg PO BEDTIME Qty: 30 RF: 0 aspirin [Adult Low Dose Aspirin] 81 mg tablet,delayed release (DR/EC) 81 mg PO DAILY Qty: 30 RF: 0 calcium 600 mg Capsule 600 mg PO DAILY RF: 0 acetaminophen-codeine 300-30 mg Tablet 1 - 2 tab PO BEDTIME PRN (Reason: Pain) RF: 0 ergocalciferol (vitamin D2) 50,000 unit Tablet 50,000 unit PO Q7D RF: 0 ipratropium bromide 21 mcg (0.03 %) [place],Non-Aerosol 2 spray INTRANASAL TID RF: 0 cholecalciferol (vitamin D3) [Vitamin D3] 25 mcg (1,000 unit) Tablet,Chewable 25 mcg PO DAILY RF: 0 Discharge Orders: Discharge ED (Routine); Ordered 11/10/20 Ordered By: Lisandro Lomas Referrals: Jaleesa Villalobos FNP [Primary Care Provider] - Patient Instructions: Opioid Safety Coding Level of Care Code 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
--- NOTE | 2020-11-10 13:10 | XR_ITS ---
WS: [id number] RIGHT SHOULDER: 3 VIEW(S) TECHNIQUE: Internal and external rotation with Y view. HISTORY: pain COMPARISON: 12/19/2017 Diffuse osteopenia. Mild narrowing of the glenohumeral joint and AC joint. No fractures are identified. Bones are severel y demineralized. XR/XR shoulder RT min 2V* [id number] IMPRESSION: 1. No fracture. 2. Mild narrowing of the glenohumeral joint and AC joint.
--- NOTE | 2020-11-10 13:10 | XR_ITS ---
WS: [id number] Exam: XR knee LT 3V* [id number] Date/Time of Exam: 11/10/2020 1:22 PM Reason For Exam: pain Comparison 09/01/2020. No acute fracture or dislocation. Tricompartmental degenerative change noted most severe involving th e medial joint compartment. There is osteopenia. No significant joint effusion is seen. Varus deformi ty of the knee. XR/XR knee LT 3V* [id number] IMPRESSION: 1. Moderately advanced tricompartmental DJD. No fracture or joint effusion seen .
[2020-11-10 14:06] LABS: Basophils # 0.1 10^3/uL (0.0-0.1); Basophils % 0.7 %; Eosinophils # 0.2 10^3/uL (0.0-0.8); Eosinophils % 1.4 %; Hematocrit 31.2 % (42.0-52.0); Hemoglobin 9.7 g/dL (11.7-16.6); Lymphocytes # 0.9 10^3/uL (0.8-4.8); Lymphocytes % 8.3 %; Mean Corpuscular HGB Conc 31.1 g/dL (30.0-36.0); Mean Corpuscular Hemoglobin 29.8 pg (28.0-34.0); Mean Corpuscular Volume 95.7 fl (80-94); Monocytes # 0.4 10^3/uL (0.2-0.9); Neutrophils # 9.09 10^3/uL (1.8-7.7); Neutrophils % 85.2 %; Nucleated Red Blood Cells % 0 %; Platelet Count 270 10^3/cmm (130-400); Red Blood Count 3.26 10^6/uL (4.1-5.3); Red Cell Distribution Width 12.9 % (12.1-15.1); White Blood Count 10.7 10^3/uL (4.0-10.0)
[2020-11-10 14:21] LABS: Carbon Dioxide 22 mmol/L (22-29); Chloride 102 mmol/L (98-107); Potassium 5.4 mmol/L (3.5-5.1); Sodium 138 mmol/L (136-145)
[2020-11-10 14:22] LABS: Alanine Aminotransferase 14 U/L (0-41); Albumin Level 3.9 g/dL (3.5-5.2); Alkaline Phosphatase 95 IU/L (40-130); Anion Gap 19.4 (5-19); Aspartate Amino Transferase 13 U/L (0-40); Blood Urea Nitrogen 54 mg/dL (8-23); Calcium 8.3 mg/dL (8.5-10.5); Globulin 4.2 g/dL (1.3-4.6); Glucose 144 mg/dL (65-115); Osmolality Calculated 303 mOsm/kg (285-295); Total Bilirubin 0.2 mg/dL (0.15-1.2); Total Protein 8.1 g/dL (6.6-8.7)
[2020-11-10 14:40] LABS: Bilirubin Urine Neg (Negative); Blood Urine 2+ (Negative); Ketones Urine Negative (Negative); Nitrate Urine Negative (Negative); Protein Urine 3+ (Negative); Urine Appearance Hazy (CLEAR); Urine Color Yellow (Yellow); Urobilinogen Urine Norm (Negative); pH Urine 5 (5-7)
[2020-11-10 14:41] LABS: Add Urine Microscopic? YES; Bacteria Urine 1+ /hpf; Glucose Urine UA 1+ (Normal); Leukocyte Esterase Urine Negative (Negative); Mucus Urine 1+ /hpf; RBC Urine 0-4 /hpf (0-2)
[2020-11-10 14:42] LABS: Add Urine Culture? No; Amorphous Sediment Urine 1+ /hpf; Fine Granular Casts Urine 0-4 /lpf
[2020-11-10] MEDS: insulin regular-human 100 units/1 mL 5 UNIT IVP (14:46)
[2020-11-10 15:15] LABS: Slide Review Slide Review Perform
[2020-11-10 15:15] LABS: Glucose Point of Care 149 mg/dL (70-110)
--- NOTE | 2020-11-10 15:21 | PC.PHAR ---
pt unable to verify medications. FILLS THROUGH [facility]. PT HAS A HOME HEALTH NURSE THROUGH [facility]. LIST SENT OVER, ON LIST IT STATES PT TAKES GABAPENTIN 100MG AT BEDTIME, [facility].
== END 2020-11-10 16:38 | disposition home or self-care (01) ==
PROVIDERS: Emergency Provider Family Medicine; PCP Nurse Practitioner Family
DX: R07.9 Chest pain, unspecified (principal); Z79.02 Long term (current) use of antithrombotics/antiplatelets; Z79.82 Long term (current) use of aspirin; Z79.4 Long term (current) use of insulin; I13.0 Hypertensive heart and chronic kidney disease with heart failure and stage 1 through stage 4 chronic kidney disease, or unspecified chronic kidney disease; I50.40 Unspecified combined systolic (congestive) and diastolic (congestive) heart failure; E11.22 Type 2 diabetes mellitus with diabetic chronic kidney disease; N18.2 Chronic kidney disease, stage 2 (mild); J44.9 Chronic obstructive pulmonary disease, unspecified; E78.5 Hyperlipidemia, unspecified; I25.2 Old myocardial infarction; Z85.46 Personal history of malignant neoplasm of prostate
CPT/HCPCS: 36416; 70450; 71045; 72125; 73030; 73562; 80053; 81001; 82962; 85025; 94640; 96374; 99284; J1815; J7611

== ENCOUNTER 2020-11-13 07:43 | Outpatient (CLI) | payer OTHER, MEDICARE, SELFPAY ==
--- NOTE | 2020-11-13 07:52 | NM_ITS ---
WS: [id number] THREE-PHASE BONE SCAN HISTORY: DIABETIC FOOT ULCER RIGHT FOOT COMPARISON: 08/21/2017 bone scan, RIGHT foot radiograph 10/05/2020. Patient is is injected with 24.7 mCi Tc99m HDP intravenously. Immediate angiographic phase imaging is performed over the area of concern. Static blood pool imaging also performed. Two-hour whole-body sc intigrams performed in anterior and posterior projections. Additional large field of view imaging sub mitted as necessary. Although very subtle there is mild increased uptake on all 3 phases in the bone and soft tissue near the first metatarsal head and first metatarsophalangeal joint. There is increased uptake on the delay ed imaging involving the first metatarsal head and on the soft tissues medial to the first metatarsop halangeal joint. There is mild delayed increased uptake in the bones of the mid RIGHT foot and at the ankle. Probably all related to arthritis. The arterial phase is normal as is the blood pool phase. Increased uptake at the knees bilaterally. Recent fall and injury involving the LEFT knee. There is s ignificant increased uptake at the LEFT knee. The radiographs were negative. [place] bone 3 phase [id number] IMPRESSION: 1. 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 2. Moderate osteoarthritic changes in the midfoot and at the RIGHT ankle. 3. Significant increased uptake at the LEFT knee. Patient had a recent fall an d the radiographs were negative. Consider CT follow-up the LEFT knee to evaluat e for occult fractures.
== END 2020-11-13 07:44 | disposition home or self-care (01) ==
PROVIDERS: PCP Nurse Practitioner Family; Visit Provider Emergency Medicine
DX: E11.621 Type 2 diabetes mellitus with foot ulcer (principal); M79.671 Pain in right foot; M86.8X7 Other osteomyelitis, ankle and foot; L03.115 Cellulitis of right lower limb
CPT/HCPCS: 78315; A9561

== ENCOUNTER 2020-11-16 13:30 | Outpatient (CLI) | payer OTHER, SELFPAY | END 2020-11-16 13:31 | disposition home or self-care (01) | LOC: WOUND 13:36 | PROVIDERS: PCP Nurse Practitioner Family; Visit Provider Nurse Practitioner Family | DX: E11.621 Type 2 diabetes mellitus with foot ulcer (principal); L97.511 Non-pressure chronic ulcer of other part of right foot limited to breakdown of skin; L97.411 Non-pressure chronic ulcer of right heel and midfoot limited to breakdown of skin | CPT/HCPCS: 11042 ==

== ENCOUNTER 2020-11-20 13:01 | Outpatient (RCR) | payer OTHER, SELFPAY ==
[2020-11-20] MEDS: octreotide LAR depot 20 mg Kit 40 MG IM (13:25)
== END 2020-12-10 23:59 | disposition home or self-care (01) ==
LOC: ONCMED 13:01
PROVIDERS: PCP Nurse Practitioner Family; Visit Provider Internal Medicine Medical Oncology
DX: C7A.8 Other malignant neuroendocrine tumors (principal); D50.9 Iron deficiency anemia, unspecified; E11.21 Type 2 diabetes mellitus with diabetic nephropathy; R53.82 Chronic fatigue, unspecified; Z79.818 Long term (current) use of other agents affecting estrogen receptors and estrogen levels
CPT/HCPCS: 96372; J2353

== ENCOUNTER 2020-11-23 13:22 | Outpatient (CLI) | payer OTHER, SELFPAY | END 2020-11-23 13:23 | disposition home or self-care (01) | LOC: WOUND 13:23 | PROVIDERS: PCP Nurse Practitioner Family; Visit Provider Emergency Medicine | DX: E11.621 Type 2 diabetes mellitus with foot ulcer (principal); L97.512 Non-pressure chronic ulcer of other part of right foot with fat layer exposed; L97.412 Non-pressure chronic ulcer of right heel and midfoot with fat layer exposed | CPT/HCPCS: 11042 ==

== ENCOUNTER 2020-11-30 13:41 | Emergency (ER) | payer OTHER, MEDICARE, SELFPAY ==
[2020-11-30 13:49] VITALS: BP 148/85; PULSE 89; RESP 16; TEMP 36.5; O2SAT 93
--- NOTE | 2020-11-30 14:17 | W.ED.NAVMDI ---
Documented by User: ZOE Wilcox 12/01/20 07:16 HPI - Nausea/Vomiting/Diarrhea General: Chief complaint: Nausea/Vomiting/Diarrhea Stated complaint: Vomiting, Low Blood Sugar, CP Time Seen by Provider: 11/30/20 14:10 History of Present Illness: HPI Narrative: Patient is an 80-year-old male comes to the ED with nausea and vomiting. Patient has a past medical history of type 2 diabetes, dyslipidemia, hypertension, GERD iron deficiency anemia and stage II chronic kidney disease. This morning patient woke up and was feeling nauseous. He had an episode of emesis and continued to feel nauseous. He then had a scheduled appointment with wound care clinic and when he arrived there they told him to come to the ED to be evaluated because his blood pressure was low and he appeared pale. Patient had another episode of emesis while in the waiting room here In the ED. after he had a second episode of emesis patient says he feels better. Denies any abdominal pain, fever, chills, chest pain, shortness of breath, bladder or bowel symptoms. Associated nausea: Yes Associated symtoms: Reports nausea; Denies change in vision, chest pain, dysuria, fatigue, headache(s) or palpitations Review of Systems Const: Denies: fever(s), chills or fatigue Eyes: Denies: change in vision or eye discomfort ENMT: Denies: throat pain, odynophagia, nasal discharge or nasal congestion Card: Denies: chest pain, palpitations, edema, swelling of feet/ankles, dyspnea on exertion or orthopnea Resp: Denies: dyspnea, productive cough or non-productive cough GI: Reports: nausea and vomiting; Denies: abdominal pain, diarrhea, constipation or hematochezia : Denies: flank pain, difficulty urinating, dysuria or hematuria Musc: Denies: neck pain, back pain or extremity swelling Skin/Breast: Denies: rash or new lesions Neuro: Denies: headache(s), numbness in extremities or weakness in extremities [facility] PFSH: Medical History Anemia Aortic stenosis Chest pain Chronic kidney disease, stage II (mild) COPD (chronic obstructive pulmonary disease) Coronary disease Coronary stent patent Dyslipidemia Encounter for narcotic contract discussion GERD (gastroesophageal reflux disease) Hypertension Insulin dependent diabetes mellitus Mild aortic stenosis Morbid obesity Neuroendocrine tumor Non-STEMI (non-ST elevated myocardial infarction) Pancreatic tumor Peripheral vascular disease With evidence of carotid artery disease especially on the right. Prostate cancer Renal mass Sleep apnea Systolic and diastolic CHF, chronic Type 2 diabetes mellitus Venous stasis Shila-Hernandez syndrome Surgical History H/O prostatectomy Family History Other Hyperlipidemia Hypertension Denies family history of Cancer Social History Smoking and tobacco status: never smoked Second hand smoke exposure: No Alcohol intake: never Caregiver/support person: Yes (Daughter) Household members: caregiver Housing: House Marital status: Single History of recent travel: No Physical Exam Const: COMMON NORMALS: no acute distress, patient oriented x3 and alert GENERAL APPEARANCE: cooperative and comfortable HENMT: COMMON NORMALS: normocephalic HEAD & SCALP: normocephalic MOUTH: Normal oral and palatal mucosa present THROAT: posterior oropharynx normal and uvula midline Neck/C-Spine: COMMON NORMALS: supple GENERAL: Yes normal visual inspection Resp: COMMON NORMALS: normal respiratory effort, No retractions, No use of accessory muscles and clear to auscultation bilaterally AUSCULTATION: clear to auscultation bilaterally Cardio: COMMON NORMALS: regular rate, regular rhythm, S1 normal heart sound present, S2 normal heart sound present, No gallops present (Cardio), No clicks present (Cardio), No murmurs present (Cardio) and Peripheral pulses 2+ throughout RATE: regular rate RHYTHM: regular rhythm HEART SOUNDS: S1 normal heart sound present and S2 normal heart sound present PERIPHERAL PULSES: Peripheral pulses 2+ throughout GI: COMMON NORMALS: Normal to inspection, nondistended, normoactive bowel sounds present, Soft to palpation, non-tender and no masses PALPATION: Yes Soft to palpation : COMMON NORMALS: Yes no CVA tenderness BLADDER/KIDNEY EXAM: Yes no CVA tenderness Back/Pelvis: COMMON NORMALS: no CVA tenderness Extremity: GENERAL: Yes normal exam except as noted Neuro: COMMON NORMALS: patient oriented x3 and moves all extremities SENSORIUM/ORIENTATION: Yes alert Skin: GENERAL SKIN EXAM: dry skin Course Vital Signs: Vital signs: Vital Signs Temperature 97.7 F 11/30/20 14:22 Pulse Rate 80 11/30/20 14:22 Respiratory Rate 15 11/30/20 14:22 Blood Pressure 113/81 11/30/20 14:22 Pulse Oximetry 93 11/30/20 13:49 MDM - Nausea/Vomiting/Diarrhea Lab Data: Attestation: I reviewed the patient's lab results. Labs: Lab Results 11/30/20 11/30/20 11/30/20 14:14 14:25 14:25 WBC 8.0 10^3/uL 10^3/ uL (4.0-10.0) RBC 2.90 10^6/uL L 10 ^6/uL (4.1-5.3) Hgb 8.7 g/dL L g/dL (11.7-16.6) Hct 28.3 % L % (42.0-52.0) MCV 97.6 fl H fl (80-94) MCH 30.0 pg pg (28.0-34.0) MCHC 30.7 g/dL g/dL (30.0-36.0) RDW 13.1 % % (12.1-15.1) Plt Count 255 10^3/cmm 10^3 /cmm (130-400) MPV 10.8 fL H fL (7.4-10.4) Neut % (Auto) 79.5 % % Lymph % (Auto) 11.1 % % [place] % (Auto) 4.2 % % Eos % (Auto) 4.0 % % Baso % (Auto) 0.6 % % Neut # (Auto) 6.37 10^3/uL 10^3 /uL (1.8-7.7) Lymph # (Auto) 0.9 10^3/uL 10^3/ uL (0.8-4.8) [place] # (Auto) 0.3 10^3/uL 10^3/ uL (0.2-0.9) Eos # (Auto) 0.3 10^3/uL 10^3/ uL (0.0-0.8) Baso # (Auto) 0.1 10^3/uL 10^3/ uL (0.0-0.1) Nucleated RBC % (a uto) 0 % % Nucleated RBCs # 0.0 /100WBC /100W BC Sodium 133 mmol/L L mmol /L (136-145) Potassium 5.6 mmol/L H mmol /L (3.5-5.1) Chloride 98 mmol/L mmol/L (98-107) Carbon Dioxide 22 mmol/L mmol/L (22-29) Anion Gap 18.6 (5-19) BUN 48 mg/dL H mg/dL (8-23) Creatinine 3.7 mg/dL H mg/dL (0.7-1.2) GFR Calculation Not Reportable Glucose 178 mg/dL H mg/dL (65-115) POC Glucose 193 mg/dL H mg/dL (70-110) Calculated Osmolal ity 293 mOsm/kg mOsm/ kg (285-295) Lactic Acid Lactic Acid (Sepsi s) Calcium 8.1 mg/dL L mg/dL (8.5-10.5) Total Bilirubin 0.2 mg/dL mg/dL (0.15-1.2) AST 11 U/L U/L (0-40) ALT 10 U/L U/L (0-41) Alkaline Phosphata se 98 IU/L IU/L (40-130) Total Protein 7.6 g/dL g/dL (6.6-8.7) Albumin 3.7 g/dL g/dL (3.5-5.2) Globulin 3.9 g/dL g/dL (1.3-4.6) Lipase 12 U/L L U/L (13-60) Urine Color Urine Appearance Urine pH Ur Specific Gravit y Urine Protein Urine Glucose (UA) Urine Ketones Urine Blood Urine Nitrate Urine Bilirubin Urine Urobilinogen Ur Leukocyte Sarah ase Urine RBC Urine WBC Ur Squamous Epith Cells Amorphous Sediment Urine Bacteria Hyaline Casts Urine Mucus 11/30/20 11/30/20 11/30/20 14:25 14:58 17:23 WBC RBC Hgb Hct MCV MCH MCHC RDW Plt Count MPV Neut % (Auto) Lymph % (Auto) [place] % (Auto) Eos % (Auto) Baso % (Auto) Neut # (Auto) Lymph # (Auto) [place] # (Auto) Eos # (Auto) Baso # (Auto) Nucleated RBC % (a uto) Nucleated RBCs # Sodium Potassium Chloride Carbon Dioxide Anion Gap BUN Creatinine GFR Calculation Glucose POC Glucose Calculated Osmolal ity Lactic Acid 2.2 mmol/L mmol/L (0.5-2.2) Lactic Acid (Sepsi s) 1.6 mmol/L mmol/L (0.5-2.2) Calcium Total Bilirubin AST ALT Alkaline Phosphata se Total Protein Albumin Globulin Lipase Urine Color Straw (Yellow) Urine Appearance Clear (CLEAR) Urine pH 5 (5-7) Ur Specific Gravit y 1.020 (1.005-1.030) Urine Protein 3+ H (Negative) Urine Glucose (UA) 1+ H (Normal) Urine Ketones Negative (Negative) Urine Blood 2+ H (Negative) Urine Nitrate Negative (Negative) Urine Bilirubin Neg (Negative) Urine Urobilinogen Norm mg/dL mg/dL (Negative) Ur Leukocyte Sarah ase Negative (Negative) Urine RBC 0-4 /hpf H /hpf (0-2) Urine WBC 5-10 /hpf H /hpf (0-5) Ur Squamous Epith Cells 0-4 /hpf H /hpf (0-5) Amorphous Sediment Not Reportable Urine Bacteria Trace /hpf /hpf (NONE) Hyaline Casts 0-4 /lpf H /lpf Urine Mucus Trace /hpf /hpf Discharge Plan Discharge Patient Disposition: Home Clinical Impression: Pancreatic tumor Nausea & vomiting Qualifiers: Vomiting type: unspecified Vomiting Intractability: non-intractable Qualified Code(s): R11.2 - Nausea with vomiting, unspecified Iron deficiency anemia Qualifiers: Iron deficiency anemia type: unspecified iron deficiency Qualified Code(s): D50.9 - Iron deficiency anemia, unspecified Condition: Stable Prescriptions: New ondansetron 4 mg tablet,disintegrating 4 mg PO Q8H PRN (Reason: nausea and vomiting) Qty: 10 RF: 0 No Action fluticasone propionate [Flonase Allergy Relief] 50 mcg/actuation spray,suspension 2 spray INTRANASAL DAILY Qty: 9.9 RF: 0 isosorbide mononitrate 60 mg tablet extended release 24 hr 90 mg PO DAILY RF: 0 Flomax 0.4 mg Capsule 0.4 mg PO DAILY RF: 0 pantoprazole 40 mg Tablet,Delayed Release (Dr/Ec) 40 mg PO DAILY RF: 0 Nutritional Drink Liquid 1 ea PO BID RF: 0 torsemide 20 mg Tablet 20 mg PO DAILY RF: 0 nitroglycerin 0.4 mg Tablet, Sublingual 0.4 mg SUBLINGUAL Q5M PRN (Reason: Chest Pain) RF: 0 gabapentin 100 mg Capsule 100 mg PO BEDTIME MDD see pharmacy comment RF: 0 bicalutamide 50 mg Tablet 50 mg PO DAILY RF: 0 duloxetine 20 mg Capsule,Delayed Release(Dr/Ec) 20 mg PO DAILY RF: 0 clopidogrel 75 mg Tablet 75 mg PO DAILY RF: 0 insulin aspart U-100 [Novolog Flexpen U-100 Insulin] 100 unit/mL (3 mL) Insulin Pen See Rx Instructions .ROUTE .COMPLEX Qty: 0 RF: 0 Lantus U-100 Insulin 100 unit/mL Solution 55 unit SUBCUT DAILY RF: 0 albuterol sulfate 90 mcg/actuation Hfa Aerosol Inhaler 2 puff inhalation QID PRN (Reason: Shortness Of Breath) RF: 0 capsaicin See Rx Instructions .ROUTE .COMPLEX RF: 0 hydrophilic cream Cream 1 applic TOPICAL DAILY RF: 0 atorvastatin 40 mg Tablet 20 mg PO BEDTIME Qty: 30 RF: 0 aspirin [Adult Low Dose Aspirin] 81 mg tablet,delayed release (DR/EC) 81 mg PO DAILY Qty: 30 RF: 0 calcium 600 mg Capsule 600 mg PO DAILY RF: 0 acetaminophen-codeine 300-30 mg Tablet 1 - 2 tab PO BEDTIME PRN (Reason: Pain) RF: 0 ergocalciferol (vitamin D2) 50,000 unit Tablet 50,000 unit PO Q7D RF: 0 ipratropium bromide 21 mcg (0.03 %) [place],Non-Aerosol 2 spray INTRANASAL TID RF: 0 cholecalciferol (vitamin D3) [Vitamin D3] 25 mcg (1,000 unit) Tablet,Chewable 25 mcg PO DAILY RF: 0 Discharge Orders: Discharge ED (Routine); Ordered 11/30/20 Ordered By: Hunter Anderson Referrals: Jaleesa Villalobos, BLENDER CONVEYOR OPERATOR [Primary Care Provider] - Discharge Diet: Advance as tolerated Discharge Activity: Increase activity as tolerated Patient Instructions: Acute Nausea and Vomiting (ED), Opioid Safety Activity Restrictions/Additional Instructions: Eat a light diet. Drink plenty of fluids unless otherwise restricted. Continue with routine medications as directed. Use ondansetron as needed for nausea and vomiting. Return to the ER for new concerns or worsening symptoms. Follow-up with primary care tomorrow. Sign Out Sign Out Data: Patient Sign Out occurred on 11/30/20 at 17:11. Patient's care was discussed, and care was transferred from to Hunter Anderson. Coding Level of Care Code ED Radio Maintainer for [place] Fwd Exam Comprehensive Documented by User: BEVERLY Haro 11/30/20 18:03 HPI - Nausea/Vomiting/Diarrhea General: Chief complaint: Nausea/Vomiting/Diarrhea Stated complaint: Vomiting, Low Blood Sugar, CP Time Seen by Provider: 11/30/20 14:10 PFSH ED PFSH: Medical History Anemia Aortic stenosis Chest pain Chronic kidney disease, stage II (mild) COPD (chronic obstructive pulmonary disease) Coronary disease Coronary stent patent Dyslipidemia Encounter for narcotic contract discussion GERD (gastroesophageal reflux disease) Hypertension Insulin dependent diabetes mellitus Mild aortic stenosis Morbid obesity Neuroendocrine tumor Non-STEMI (non-ST elevated myocardial infarction) Pancreatic tumor Peripheral vascular disease With evidence of carotid artery disease especially on the right. Prostate cancer Renal mass Sleep apnea Systolic and diastolic CHF, chronic Type 2 diabetes mellitus Venous stasis Shila-Hernandez syndrome Surgical History H/O prostatectomy Family History Other Hyperlipidemia Hypertension Denies family history of Cancer Social History Smoking and tobacco status: never smoked Second hand smoke exposure: No Alcohol intake: never Caregiver/support person: Yes (Daughter) Household members: caregiver Housing: House Marital status: Single History of recent travel: No Course ED course: 1700, received patient from Marco Antonio Wright PA-C, he reports the patient feels better after emesis in the ER. We are awaiting CT of abdomen pelvis report. It was noted patient creatinine has elevated from 2.9-3.7, and his hemoglobin hematocrit are 8.7 and 28.3 which is slightly lower than his previous exam. Patient has been given 500 mL of fluid per IV. Patient denies any complaints at this time. 1754, reviewed CT abdomen pelvis report with patient. There was noted mass to the pancreatic head which patient knows about and is receiving chemotherapy injections for. Discussed fracture of the lumbar 5 vertebra patient states that that has been there for a while and reports no discomfort with it. We plan to do a fluid challenge make sure patient is able to hold down fluids and will release to home. 1804, patient was able to tolerate fluids and wished to go home. I reviewed recommendations for follow-up or return to the ER for worsening symptoms, patient agreed. Vital Signs: Vital signs: Vital Signs Temperature 97.7 F 11/30/20 14:22 Pulse Rate 80 11/30/20 14:22 Respiratory Rate 15 11/30/20 14:22 Blood Pressure 113/81 11/30/20 14:22 Pulse Oximetry 93 11/30/20 13:49 MDM - Nausea/Vomiting/Diarrhea MDM Narrative: Medical decision making narrative: Patient was being evaluated at wound care and was seem to be ill so they recommended that he come to the ER for further evaluation and treatment. On arrival to the ER patient vomited a small amount of liquid and reported improvement of symptoms. On exam patient was pale, vital signs were normal, respirations were even lungs were clear to auscultation. Patient appears chronically ill. Differential diagnosis includes but not limited to gastroenteritis, bowel obstruction, GERD. Patient was treated with 500 mL of IV fluids. Laboratory values indicated some increase in patient's creatinine to 3.7 from 2.9. Hemoglobin was 8.7 which patient usually runs around 9. Patient had resolution of nausea and vomiting on arrival to the ER. CT scan noted pancreatic tumor which patient was aware of. CT scan also noted a possible acute fracture of the L5 which patient reports that he thinks was old because he has had no pain in that area. Patient was able to tolerate oral fluids and wished to go home. Patient was discharged to home with recommendations for follow-up or return to the ER for worsening symptoms. Lab Data: Labs: Lab Results 11/30/20 11/30/20 11/30/20 14:14 14:25 14:25 WBC 8.0 10^3/uL 10^3/ uL (4.0-10.0) RBC 2.90 10^6/uL L 10 ^6/uL (4.1-5.3) Hgb 8.7 g/dL L g/dL (11.7-16.6) Hct 28.3 % L % (42.0-52.0) MCV 97.6 fl H fl (80-94) MCH 30.0 pg pg (28.0-34.0) MCHC 30.7 g/dL g/dL (30.0-36.0) RDW 13.1 % % (12.1-15.1) Plt Count 255 10^3/cmm 10^3 /cmm (130-400) MPV 10.8 fL H fL (7.4-10.4) Neut % (Auto) 79.5 % % Lymph % (Auto) 11.1 % % [place] % (Auto) 4.2 % % Eos % (Auto) 4.0 % % Baso % (Auto) 0.6 % % Neut # (Auto) 6.37 10^3/uL 10^3 /uL (1.8-7.7) Lymph # (Auto) 0.9 10^3/uL 10^3/ uL (0.8-4.8) [place] # (Auto) 0.3 10^3/uL 10^3/ uL (0.2-0.9) Eos # (Auto) 0.3 10^3/uL 10^3/ uL (0.0-0.8) Baso # (Auto) 0.1 10^3/uL 10^3/ uL (0.0-0.1) Nucleated RBC % (a uto) 0 % % Nucleated RBCs # 0.0 /100WBC /100W BC Sodium 133 mmol/L L mmol /L (136-145) Potassium 5.6 mmol/L H mmol /L (3.5-5.1) Chloride 98 mmol/L mmol/L (98-107) Carbon Dioxide 22 mmol/L mmol/L (22-29) Anion Gap 18.6 (5-19) BUN 48 mg/dL H mg/dL (8-23) Creatinine 3.7 mg/dL H mg/dL (0.7-1.2) GFR Calculation Not Reportable Glucose 178 mg/dL H mg/dL (65-115) POC Glucose 193 mg/dL H mg/dL (70-110) Calculated Osmolal ity 293 mOsm/kg mOsm/ kg (285-295) Lactic Acid Lactic Acid (Sepsi s) Calcium 8.1 mg/dL L mg/dL (8.5-10.5) Total Bilirubin 0.2 mg/dL mg/dL (0.15-1.2) AST 11 U/L U/L (0-40) ALT 10 U/L U/L (0-41) Alkaline Phosphata se 98 IU/L IU/L (40-130) Total Protein 7.6 g/dL g/dL (6.6-8.7) Albumin 3.7 g/dL g/dL (3.5-5.2) Globulin 3.9 g/dL g/dL (1.3-4.6) Lipase 12 U/L L U/L (13-60) Urine Color Urine Appearance Urine pH Ur Specific Gravit y Urine Protein Urine Glucose (UA) Urine Ketones Urine Blood Urine Nitrate Urine Bilirubin Urine Urobilinogen Ur Leukocyte Sarah ase Urine RBC Urine WBC Ur Squamous Epith Cells Amorphous Sediment Urine Bacteria Hyaline Casts Urine Mucus 11/30/20 11/30/20 11/30/20 14:25 14:58 17:23 WBC RBC Hgb Hct MCV MCH MCHC RDW Plt Count MPV Neut % (Auto) Lymph % (Auto) [place] % (Auto) Eos % (Auto) Baso % (Auto) Neut # (Auto) Lymph # (Auto) [place] # (Auto) Eos # (Auto) Baso # (Auto) Nucleated RBC % (a uto) Nucleated RBCs # Sodium Potassium Chloride Carbon Dioxide Anion Gap BUN Creatinine GFR Calculation Glucose POC Glucose Calculated Osmolal ity Lactic Acid 2.2 mmol/L mmol/L (0.5-2.2) Lactic Acid (Sepsi s) 1.6 mmol/L mmol/L (0.5-2.2) Calcium Total Bilirubin AST ALT Alkaline Phosphata se Total Protein Albumin Globulin Lipase Urine Color Straw (Yellow) Urine Appearance Clear (CLEAR) Urine pH 5 (5-7) Ur Specific Gravit y 1.020 (1.005-1.030) Urine Protein 3+ H (Negative) Urine Glucose (UA) 1+ H (Normal) Urine Ketones Negative (Negative) Urine Blood 2+ H (Negative) Urine Nitrate Negative (Negative) Urine Bilirubin Neg (Negative) Urine Urobilinogen Norm mg/dL mg/dL (Negative) Ur Leukocyte Sarah ase Negative (Negative) Urine RBC 0-4 /hpf H /hpf (0-2) Urine WBC 5-10 /hpf H /hpf (0-5) Ur Squamous Epith Cells 0-4 /hpf H /hpf (0-5) Amorphous Sediment Not Reportable Urine Bacteria Trace /hpf /hpf (NONE) Hyaline Casts 0-4 /lpf H /lpf Urine Mucus Trace /hpf /hpf Discharge Plan Discharge Patient Disposition: Home Clinical Impression: Pancreatic tumor Nausea & vomiting Qualifiers: Vomiting type: unspecified Vomiting Intractability: non-intractable Qualified Code(s): R11.2 - Nausea with vomiting, unspecified Iron deficiency anemia Qualifiers: Iron deficiency anemia type: unspecified iron deficiency Qualified Code(s): D50.9 - Iron deficiency anemia, unspecified Condition: Stable Prescriptions: New ondansetron 4 mg tablet,disintegrating 4 mg PO Q8H PRN (Reason: nausea and vomiting) Qty: 10 RF: 0 No Action fluticasone propionate [Flonase Allergy Relief] 50 mcg/actuation spray,suspension 2 spray INTRANASAL DAILY Qty: 9.9 RF: 0 isosorbide mononitrate 60 mg tablet extended release 24 hr 90 mg PO DAILY RF: 0 Flomax 0.4 mg Capsule 0.4 mg PO DAILY RF: 0 pantoprazole 40 mg Tablet,Delayed Release (Dr/Ec) 40 mg PO DAILY RF: 0 Nutritional Drink Liquid 1 ea PO BID RF: 0 torsemide 20 mg Tablet 20 mg PO DAILY RF: 0 nitroglycerin 0.4 mg Tablet, Sublingual 0.4 mg SUBLINGUAL Q5M PRN (Reason: Chest Pain) RF: 0 gabapentin 100 mg Capsule 100 mg PO BEDTIME MDD see pharmacy comment RF: 0 bicalutamide 50 mg Tablet 50 mg PO DAILY RF: 0 duloxetine 20 mg Capsule,Delayed Release(Dr/Ec) 20 mg PO DAILY RF: 0 clopidogrel 75 mg Tablet 75 mg PO DAILY RF: 0 insulin aspart U-100 [Novolog Flexpen U-100 Insulin] 100 unit/mL (3 mL) Insulin Pen See Rx Instructions .ROUTE .COMPLEX Qty: 0 RF: 0 Lantus U-100 Insulin 100 unit/mL Solution 55 unit SUBCUT DAILY RF: 0 albuterol sulfate 90 mcg/actuation Hfa Aerosol Inhaler 2 puff inhalation QID PRN (Reason: Shortness Of Breath) RF: 0 capsaicin See Rx Instructions .ROUTE .COMPLEX RF: 0 hydrophilic cream Cream 1 applic TOPICAL DAILY RF: 0 atorvastatin 40 mg Tablet 20 mg PO BEDTIME Qty: 30 RF: 0 aspirin [Adult Low Dose Aspirin] 81 mg tablet,delayed release (DR/EC) 81 mg PO DAILY Qty: 30 RF: 0 calcium 600 mg Capsule 600 mg PO DAILY RF: 0 acetaminophen-codeine 300-30 mg Tablet 1 - 2 tab PO BEDTIME PRN (Reason: Pain) RF: 0 ergocalciferol (vitamin D2) 50,000 unit Tablet 50,000 unit PO Q7D RF: 0 ipratropium bromide 21 mcg (0.03 %) [place],Non-Aerosol 2 spray INTRANASAL TID RF: 0 cholecalciferol (vitamin D3) [Vitamin D3] 25 mcg (1,000 unit) Tablet,Chewable 25 mcg PO DAILY RF: 0 Discharge Orders: Discharge ED (Routine); Ordered 11/30/20 Ordered By: Hunter Anderson Referrals: Jaleesa Villalobos, BLENDER CONVEYOR OPERATOR [Primary Care Provider] - Discharge Diet: Advance as tolerated Discharge Activity: Increase activity as tolerated Patient Instructions: Acute Nausea and Vomiting (ED), Opioid Safety Activity Restrictions/Additional Instructions: Eat a light diet. Drink plenty of fluids unless otherwise restricted. Continue with routine medications as directed. Use ondansetron as needed for nausea and vomiting. Return to the ER for new concerns or worsening symptoms. Follow-up with primary care tomorrow. Sign Out Sign Out Data: Patient Sign Out occurred on 11/30/20 at 17:11. Patient's care was discussed, and care was transferred from to Hunter Anderson. Coding Level of Care Code ED Radio Maintainer for [place] Fwd Exam Comprehensive
[2020-11-30 14:22] VITALS: BP 113/81; PULSE 80; RESP 15; TEMP 36.5
[2020-11-30 14:38] LABS: Glucose Point of Care 193 mg/dL (70-110)
[2020-11-30 14:39] LABS: Basophils # 0.1 10^3/uL (0.0-0.1); Basophils % 0.6 %; Eosinophils # 0.3 10^3/uL (0.0-0.8); Hematocrit 28.3 % (42.0-52.0); Hemoglobin 8.7 g/dL (11.7-16.6); Lymphocytes # 0.9 10^3/uL (0.8-4.8); Lymphocytes % 11.1 %; Mean Corpuscular HGB Conc 30.7 g/dL (30.0-36.0); Mean Corpuscular Volume 97.6 fl (80-94); Mean Platelet Volume 10.8 fL (7.4-10.4); Monocytes # 0.3 10^3/uL (0.2-0.9); Monocytes % 4.2 %; Neutrophils # 6.37 10^3/uL (1.8-7.7); Neutrophils % 79.5 %; Nucleated Red Blood Cells % 0 %; Platelet Count 255 10^3/cmm (130-400); Red Cell Distribution Width 13.1 % (12.1-15.1)
[2020-11-30 14:57] LABS: Lactic Sepsis W/Reflex 2.2 mmol/L (0.5-2.2)
[2020-11-30 14:58] LABS: Alanine Aminotransferase 10 U/L (0-41); Albumin Level 3.7 g/dL (3.5-5.2); Alkaline Phosphatase 98 IU/L (40-130); Anion Gap 18.6 (5-19); Aspartate Amino Transferase 11 U/L (0-40); Blood Urea Nitrogen 48 mg/dL (8-23); Calcium 8.1 mg/dL (8.5-10.5); Carbon Dioxide 22 mmol/L (22-29); Chloride 98 mmol/L (98-107); Globulin 3.9 g/dL (1.3-4.6); Glucose 178 mg/dL (65-115); Lipase 12 U/L (13-60); Osmolality Calculated 293 mOsm/kg (285-295); Potassium 5.6 mmol/L (3.5-5.1); Sodium 133 mmol/L (136-145); Total Bilirubin 0.2 mg/dL (0.15-1.2); Total Protein 7.6 g/dL (6.6-8.7)
--- NOTE | 2020-11-30 15:05 | ECG_ITS ---
[facility] Test Date: 2020-11-30 Pat Name: Marco Antonio Valadez Department: Room: Gender: Male Folder Operator: : 1940 Requested By: Marco Antonio Wright Order Number: [id number] Foreign MD: Omer Hernandez M.D. Measurements Intervals [place] Rate: 75 P: 48 [place]: 123 QRS: -26 QRSD: 114 T: 52 QT: 399 QTc: 446 Interpretive Statements SINUS RHYTHM BORDERLINE LEFT AXIS DEVIATION [QRS AXIS < -20] LOW QRS VOLTAGE IN PRECORDIAL LEADS [QRS DEFLECTION < 1.0 mV IN CHEST LEADS] PATTERN CONSISTENT WITH PULMONARY DISEASE MODERATE INTRAVENTRICULAR CONDUCTION DELAY [110+ ms QRS DURATION] Compared to ECG 07/05/2020 14:17:10 Low QRS voltage now present Intraventricular conduction delay now present Ventricular premature complex(es) no longer present Electronically Signed On 12-01-2020 22:46:54 CDT by Omer Hernandez M.D. [id number]
--- NOTE | 2020-11-30 15:55 | CTR_ITS ---
PROCEDURE INFORMATION: Exam: CT Abdomen And Pelvis Without Contrast Exam date and time: 11/30/2020 3:55 PM Age: 80 years old Clinical indication: Nausea and vomiting; Additional info: N/v, elevated CR level. HX of pancreas cancer TECHNIQUE: Imaging protocol: Computed tomography of the abdomen and pelvis without contrast. Radiation optimization: All CT scans at this facility use at least one of these dose optimization techniques: automated exposure control; mA and/or kV adjustment per patient size (includes targeted exams where dose is matched to clinical indication); or iterative reconstruction. COMPARISON: CT abdomen pelvis wo con [id number] 10/28/2019 2:05 PM RADIATION DOSE METRICS: Total DLP (mGy-cm): 1384.48 FINDINGS: Lungs: Calcified granuloma in the right lower lobe. Interstitial scarring in the lung bases. Heart: Coronary artery calcifications. Liver: Normal. No mass. Gallbladder and bile ducts: Fluid distended gallbladder. No visible stones. No wall thickening. The bile ducts are normal. Pancreas: Coarse calcifications in the pancreatic head and uncinate process. The body and tail are unremarkable. Spleen: Calcified granulomas in the spleen. Adrenal glands: Normal. No mass. Kidneys and ureters: Multiple fluid density cysts in both kidneys, Hounsfield units less than 20. No follow-up imaging recommended. Chronic bilateral perinephric stranding. No calculus or hydronephrosis. Stomach and bowel: Unremarkable. No obstruction. No mucosal thickening. Appendix: No evidence of appendicitis. Intraperitoneal space: Unremarkable. No free air. No significant fluid collection. Vasculature: Arterial calcifications. No aneurysm. Lymph nodes: Calcified mediastinal and right hilar lymph nodes. Stable prominent iliac chain lymph nodes. Urinary bladder: Unremarkable as visualized. Reproductive: Small prostate with calcifications. Bones/joints: Degenerative changes of the spine. Oblique fracture through the anterior inferior L5 vertebral body. Mild degenerative anterior subluxation of L4 on L5 and L5 on S1. Lumbar scoliosis. Soft tissues: 7.5 x 9.6 x 9.7 cm oval soft tissue density mass between the main portal vein and the inferior vena cava. This likely represents an enlarged portal caval lymph node. Fat containing umbilical hernia. Multiple densities in the subcutaneous soft tissues of the buttock region is most likely medication injection sites. CT/CT abdomen pelvis wo con [id number] IMPRESSION: 1. Slightly larger 9.7 cm mass in the region of the pancreatic head and duodenum. This could represent an enlarged portal caval lymph node (metastasis versus lymphoma) or neoplasm arising from the pancreas. 2. Acute appearing L5 vertebral body fracture. 3. Stable prominent iliac chain lymph nodes. These may be reactive or neoplastic. COMMENTS: Consistent with the [employer]'s Incidental Findings Committee white paper (J Am Yi Radiol 2018): Any incidental renal lesion less than 1 cm or classified as too small to characterize, or any incidental cystic renal lesion characterized as simple-appearing, is likely benign. No follow-up imaging is recommended for these lesions per consensus recommendations based on imaging criteria. Radiation Dose CTDIVOL = (mGy): DLP = 1384.48 (mGy-cm)
[2020-11-30 16:02] LABS: Add Urine Microscopic? YES; Bilirubin Urine Neg (Negative); Blood Urine 2+ (Negative); Glucose Urine UA 1+ (Normal); Ketones Urine Negative (Negative); Leukocyte Esterase Urine Negative (Negative); Nitrate Urine Negative (Negative); Protein Urine 3+ (Negative); Urine Appearance Clear (CLEAR); Urine Color Straw (Yellow); Urobilinogen Urine Norm (Negative); pH Urine 5 (5-7)
[2020-11-30 16:03] LABS: Add Urine Culture? No; Bacteria Urine TRACE /hpf; Hyaline Casts Urine 0-4 /lpf; Mucus Urine TRACE /hpf; RBC Urine 0-4 /hpf (0-2); Squamous Epithelial Cell Urine 0-4 /hpf (0-5)
[2020-11-30] MEDS: sodium chloride 0.9% 500 ML IV (16:16)
[2020-11-30 16:33] LABS: Reflex Lactate Order REFLEX LACTIC ORDERD
[2020-11-30 18:02] LABS: Lactic Acid level (Lactate) 1.6 mmol/L (0.5-2.2)
== END 2020-11-30 18:18 | disposition home or self-care (01) ==
PROVIDERS: Physician Assistant; Emergency Provider Nurse Practitioner Family; PCP Nurse Practitioner Family
DX: R11.2 Nausea with vomiting, unspecified (principal); D49.0 Neoplasm of unspecified behavior of digestive system; D50.9 Iron deficiency anemia, unspecified; Z79.02 Long term (current) use of antithrombotics/antiplatelets; Z79.82 Long term (current) use of aspirin; Z79.4 Long term (current) use of insulin; I12.9 Hypertensive chronic kidney disease with stage 1 through stage 4 chronic kidney disease, or unspecified chronic kidney disease; E11.22 Type 2 diabetes mellitus with diabetic chronic kidney disease; N18.2 Chronic kidney disease, stage 2 (mild); J44.9 Chronic obstructive pulmonary disease, unspecified; E78.5 Hyperlipidemia, unspecified; I25.2 Old myocardial infarction; Z85.46 Personal history of malignant neoplasm of prostate
CPT/HCPCS: 36416; 74176; 80053; 81001; 82962; 83605; 83690; 85025; 87040; 93005; 96360; 99283; 99291; J7040

== ENCOUNTER 2020-12-07 13:06 | Outpatient (CLI) | payer OTHER, SELFPAY | END 2020-12-07 13:07 | disposition home or self-care (01) | LOC: WOUND 13:07 | PROVIDERS: PCP Nurse Practitioner Family; Visit Provider Thoracic Surgery (Cardiothoracic Vascular Surgery) | DX: E11.621 Type 2 diabetes mellitus with foot ulcer (principal); L97.511 Non-pressure chronic ulcer of other part of right foot limited to breakdown of skin; L97.411 Non-pressure chronic ulcer of right heel and midfoot limited to breakdown of skin | CPT/HCPCS: 97597 ==

== ENCOUNTER 2020-12-14 13:06 | Outpatient (CLI) | payer OTHER, SELFPAY | END 2020-12-14 13:07 | disposition home or self-care (01) | LOC: WOUND 13:07 | PROVIDERS: PCP Nurse Practitioner Family; Visit Provider Nurse Practitioner Family | DX: E11.621 Type 2 diabetes mellitus with foot ulcer (principal); L97.512 Non-pressure chronic ulcer of other part of right foot with fat layer exposed; L97.412 Non-pressure chronic ulcer of right heel and midfoot with fat layer exposed | CPT/HCPCS: 11042 ==

== ENCOUNTER 2020-12-20 06:06 | Outpatient (RCR) | payer OTHER, SELFPAY ==
[2020-12-20] MEDS: octreotide LAR depot 20 mg Kit 40 MG IM (15:45)
== END 2021-01-09 23:59 | disposition home or self-care (01) ==
LOC: ONCMED 06:06
PROVIDERS: PCP Nurse Practitioner Family; Visit Provider Internal Medicine Medical Oncology
DX: C7A.8 Other malignant neuroendocrine tumors (principal); D50.9 Iron deficiency anemia, unspecified; Z79.818 Long term (current) use of other agents affecting estrogen receptors and estrogen levels
CPT/HCPCS: 96372; J2353

== ENCOUNTER 2020-12-28 13:00 | Outpatient (CLI) | payer OTHER, SELFPAY | END 2020-12-28 13:01 | disposition home or self-care (01) | LOC: WOUND 13:01 | PROVIDERS: PCP Nurse Practitioner Family; Visit Provider Nurse Practitioner Family | DX: E11.621 Type 2 diabetes mellitus with foot ulcer (principal); L97.512 Non-pressure chronic ulcer of other part of right foot with fat layer exposed; L97.412 Non-pressure chronic ulcer of right heel and midfoot with fat layer exposed | CPT/HCPCS: 11042 ==

== ENCOUNTER 2021-01-15 18:18 | Emergency (ER) | payer OTHER, MEDICARE, SELFPAY ==
[2021-01-15 19:01] VITALS: BP 124/70; PULSE 83; RESP 16; TEMP 36.5; O2SAT 97
--- NOTE | 2021-01-15 21:32 | W.ED.GENADLT ---
HPI - General Adult General: Chief complaint: General Medical Stated complaint: Hip Pain\Tailbone Pain Time Seen by Provider: 01/15/21 21:32 History of Present Illness: HPI narrative: 81-year-old male patient comes in today with complaints of right hip pain radiating into the foot. Patient does have a history of prostate, pancreatic, and skin carcinoma. Patient also has a history of osteomyelitis in the right foot. Patient denies any fever or chills. Patient's daughter reports that for the last week he has been bedbound due to his pain. Patient was able to get up and move around today with decrease in pain but was worse when he come back from the bathroom tonight. Patient appears chronically ill. Patient appears in no pain at rest. Review of Systems General: Reports: 10 or more systems reviewed and unremarkable except in HPI and below Musc: Reports: other (Right hip pain) [facility] ED PFSH: Medical History Anemia Aortic stenosis Chest pain Chronic kidney disease, stage II (mild) COPD (chronic obstructive pulmonary disease) Coronary disease Coronary stent patent Dyslipidemia Encounter for narcotic contract discussion GERD (gastroesophageal reflux disease) Hypertension Insulin dependent diabetes mellitus Mild aortic stenosis Morbid obesity Neuroendocrine tumor Non-STEMI (non-ST elevated myocardial infarction) Pancreatic tumor Peripheral vascular disease With evidence of carotid artery disease especially on the right. Prostate cancer Renal mass Sleep apnea Systolic and diastolic CHF, chronic Type 2 diabetes mellitus Venous stasis Shila-Hernandez syndrome Surgical History H/O prostatectomy Family History Other Hyperlipidemia Hypertension Denies family history of Cancer Social History Smoking and tobacco status: never smoked Second hand smoke exposure: No Alcohol intake: never Caregiver/support person: Yes (Daughter) Household members: caregiver Housing: House Marital status: Single History of recent travel: No Physical Exam Const: COMMON NORMALS: no acute distress and patient oriented x3 GENERAL APPEARANCE: cooperative HENMT: COMMON NORMALS: normocephalic HEAD & SCALP: normal to inspection and normocephalic MOUTH: Normal oral and palatal mucosa present Eye: GENERAL EYE: appearance normal, both eyes and all related structures Neck/C-Spine: COMMON NORMALS: full ROM Chest: COMMONS NORMALS: normal inspection of the chest Resp: COMMON NORMALS: normal respiratory effort EFFORT & INSPECTION: Yes able to speak in complete sentences Cardio: COMMON NORMALS: regular rate and regular rhythm RATE: regular rate RHYTHM: regular rhythm GI: COMMON NORMALS: non-tender : COMMON NORMALS: Yes no CVA tenderness BLADDER/KIDNEY EXAM: Yes no CVA tenderness Back/Pelvis: COMMON NORMALS: no CVA tenderness and thoracic and lumbar spine normal to inspection Extremity: COMMON NORMALS: normal to inspection Neuro: COMMON NORMALS: patient oriented x3 and moves all extremities Psych: COMMON NORMALS: mental status grossly normal and cooperative Skin: NARRATIVE SKIN EXAM: Chronic wound ulcer to the great toe and heel of the right foot. Course Vital Signs: Vital signs: Vital Signs Temperature 97.7 F 01/15/21 19:01 Pulse Rate 82 01/15/21 23:15 Respiratory Rate 18 01/15/21 23:15 Blood Pressure 134/77 01/15/21 23:15 Pulse Oximetry 92 01/15/21 23:15 MDM - General Adult MDM Narrative: Medical decision making narrative: 81-year-old male patient comes in with right hip pain. Patient reports pain worse for the last week. Patient reports some improvement in his pain today but noticed some significant pain when he came back from the bathroom this evening. Patient has a history of osteomyelitis in the foot which is being treated by wound care. Patient was concerned he may be developing an infection in his hip. Review of the record noted that patient had a recent lumbar 5 fracture. On exam examination of the low back indicates no redness of the hip indicates no redness or inflammation. Vital signs were normal. Differential diagnosis includes lumbar radiculopathy, osteoarthritis of the hip, avascular necrosis, osteomyelitis. CT of the pelvis and the lumbar spine indicated some significant spinal stenosis at L3-L4 and a healing lumbar [address] of the pelvis indicated no signs of lesions or metastasis in the bone. 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 Reviewed exam with patient with recommendations for treatment follow-up with primary care. Offered to write for some hydrocodone for pain but patient did not want it states he uses his acetaminophen and Tylenol 3 at home which works well for him. Discussed dosing for Tylenol to stay below 4000 mg a day. Patient states he only takes 2000 mg a day. Patient agreed to plan and felt relief making sure there is no signs of infection going into the hip or metastasis of his cancer. Discharge Plan Discharge Patient Disposition: Home Clinical Impression: Chronic lumbar radiculopathy Condition: Stable Prescriptions: No Action fluticasone propionate [Flonase Allergy Relief] 50 mcg/actuation spray,suspension 2 spray INTRANASAL DAILY Qty: 9.9 RF: 0 isosorbide mononitrate 60 mg tablet extended release 24 hr 90 mg PO DAILY RF: 0 Flomax 0.4 mg Capsule 0.4 mg PO DAILY RF: 0 pantoprazole 40 mg Tablet,Delayed Release (Dr/Ec) 40 mg PO DAILY RF: 0 Nutritional Drink Liquid 1 ea PO BID RF: 0 ondansetron 4 mg tablet,disintegrating 4 mg PO Q8H PRN (Reason: nausea and vomiting) Qty: 10 RF: 0 torsemide 20 mg Tablet 20 mg PO DAILY RF: 0 nitroglycerin 0.4 mg Tablet, Sublingual 0.4 mg SUBLINGUAL Q5M PRN (Reason: Chest Pain) RF: 0 gabapentin 100 mg Capsule 100 mg PO BEDTIME MDD see pharmacy comment RF: 0 bicalutamide 50 mg Tablet 50 mg PO DAILY RF: 0 duloxetine 20 mg Capsule,Delayed Release(Dr/Ec) 20 mg PO DAILY RF: 0 clopidogrel 75 mg Tablet 75 mg PO DAILY RF: 0 insulin aspart U-100 [Novolog Flexpen U-100 Insulin] 100 unit/mL (3 mL) Insulin Pen See Rx Instructions .ROUTE .COMPLEX Qty: 0 RF: 0 Lantus U-100 Insulin 100 unit/mL Solution 55 unit SUBCUT DAILY RF: 0 albuterol sulfate 90 mcg/actuation Hfa Aerosol Inhaler 2 puff inhalation QID PRN (Reason: Shortness Of Breath) RF: 0 capsaicin See Rx Instructions .ROUTE .COMPLEX RF: 0 hydrophilic cream Cream 1 applic TOPICAL DAILY RF: 0 atorvastatin 40 mg Tablet 20 mg PO BEDTIME Qty: 30 RF: 0 aspirin [Adult Low Dose Aspirin] 81 mg tablet,delayed release (DR/EC) 81 mg PO DAILY Qty: 30 RF: 0 calcium 600 mg Capsule 600 mg PO DAILY RF: 0 acetaminophen-codeine 300-30 mg Tablet 1 - 2 tab PO BEDTIME PRN (Reason: Pain) RF: 0 ergocalciferol (vitamin D2) 50,000 unit Tablet 50,000 unit PO Q7D RF: 0 ipratropium bromide 21 mcg (0.03 %) Rhame,Non-Aerosol 2 spray INTRANASAL TID RF: 0 cholecalciferol (vitamin D3) [Vitamin D3] 25 mcg (1,000 unit) Tablet,Chewable 25 mcg PO DAILY RF: 0 Discharge Orders: Discharge ED (Routine); Ordered 01/15/21 Ordered By: Hunter Anderson Referrals: Jaleesa Villalobos, [employer] [Primary Care Provider] - Discharge Diet: Usual diet Discharge Activity: Increase activity as tolerated Patient Instructions: Lumbar Radiculopathy (ED), Opioid Safety Coding Level of Care Code ED Track Service Person for Chg Fwd Exam Comprehensive
--- NOTE | 2021-01-15 21:46 | CTR_ITS ---
PROCEDURE INFORMATION: Exam: CT Lumbar Spine Without Contrast Exam date and time: 01/15/2021 9:46 PM Age: 81 years old Clinical indication: Low back pain; Additional info: Lumbar radiculopathy right side TECHNIQUE: Imaging protocol: Computed tomography images of the lumbar spine without contrast. Radiation optimization: All CT scans at this facility use at least one of these dose optimization techniques: automated exposure control; mA and/or kV adjustment per patient size (includes targeted exams where dose is matched to clinical indication); or iterative reconstruction. COMPARISON: CT abdomen pelvis wo con [id number] 11/30/2020 4:25 PM RADIATION DOSE METRICS: Total DLP (mGy-cm): 2601.53 FINDINGS: Vertebrae: There is a healing nondisplaced oblique fracture of the L5 vertebral body extending from the anterior superior margin to the posteroinferior margin. There is ill definition of the fracture line compared to 11/30/2020. There is minimal periosteal new bone formation. Vertebral body height is maintained. There is moderate bilateral facet spondylosis at L4-L5 and L5-S1. There is grade 1 degenerative anterolisthesis of L4 on L5 and L5 on S1. Spinal alignment is otherwise normal. Discs/Spinal canal/Neural foramina: There is moderate left neural foraminal stenosis at L5-S1. There is no visible disc herniation. There are multilevel mild generalized disc bulges and facet/ligamentous hypertrophy, resulting in mild spinal stenosis at L2-L3, moderate spinal stenosis at L3-L4, and severe spinal stenosis at L4-L5. Other bones/joints: The visible portion of the pelvis and sacrum is intact. Vasculature: There is moderate aortic atherosclerotic disease. Soft tissues: Paraspinal soft tissues are unremarkable. CT/CT lumbar spine wo con* [id number] IMPRESSION: 1. Healing L5 vertebral fracture with stable alignment compared to 11/30/2020. 2. Lower lumbar degenerative disease with multilevel spinal stenosis which is severe at L4-L5.
--- NOTE | 2021-01-15 21:46 | CTR_ITS ---
PROCEDURE INFORMATION: Exam: CT Pelvis Without Contrast; Skeletal Exam date and time: 01/15/2021 9:46 PM Age: 81 years old Clinical indication: Hip pain and pelvic pain; Right hip; Additional info: Pain, history of cancer, right hip pain TECHNIQUE: Imaging protocol: Computed tomography images of the pelvis without contrast. Exam focused on the skeletal structures. Radiation optimization: All CT scans at this facility use at least one of these dose optimization techniques: automated exposure control; mA and/or kV adjustment per patient size (includes targeted exams where dose is matched to clinical indication); or iterative reconstruction. COMPARISON: CT abdomen pelvis wo con [id number] 11/30/2020 4:25 PM RADIATION DOSE METRICS: Total DLP (mGy-cm): 1296.98 FINDINGS: Bones/joints: Femoroacetabular alignment is normal. Joint space is preserved on the right. There is moderate central femoroacetabular joint space narrowing with collar osteophytes on the left. The proximal femora are intact. The bony pelvis is intact. The sacrum and SI joints are unremarkable. There is a subacute fracture of the L5 vertebral body. No visible hip effusion. Soft tissues: Pelvic musculature is unremarkable. CT/CT pelvis wo con [id number] IMPRESSION: 1. No acute findings. 2. Subacute L5 fracture. 3. Moderate degenerative disease at the left hip.
[2021-01-15 22:00] VITALS: BP 145/77; PULSE 63; RESP 18; O2SAT 98
[2021-01-15 23:15] VITALS: BP 134/77; PULSE 82; RESP 18; O2SAT 92
== END 2021-01-15 23:30 | disposition home or self-care (01) ==
PROVIDERS: Emergency Provider Nurse Practitioner Family; PCP Nurse Practitioner Family
DX: M54.16 Radiculopathy, lumbar region (principal); Z79.02 Long term (current) use of antithrombotics/antiplatelets; Z79.82 Long term (current) use of aspirin; Z79.4 Long term (current) use of insulin; I13.0 Hypertensive heart and chronic kidney disease with heart failure and stage 1 through stage 4 chronic kidney disease, or unspecified chronic kidney disease; I50.40 Unspecified combined systolic (congestive) and diastolic (congestive) heart failure; E11.22 Type 2 diabetes mellitus with diabetic chronic kidney disease; N18.2 Chronic kidney disease, stage 2 (mild); J44.9 Chronic obstructive pulmonary disease, unspecified; E78.5 Hyperlipidemia, unspecified; I25.2 Old myocardial infarction
CPT/HCPCS: 72131; 72192; 99283

== ENCOUNTER 2021-01-18 12:53 | Outpatient (CLI) | payer OTHER, SELFPAY | END 2021-01-18 12:54 | disposition home or self-care (01) | LOC: WOUND 12:54 | PROVIDERS: PCP Nurse Practitioner Family; Visit Provider Emergency Medicine | DX: E11.621 Type 2 diabetes mellitus with foot ulcer (principal); L97.512 Non-pressure chronic ulcer of other part of right foot with fat layer exposed; L97.412 Non-pressure chronic ulcer of right heel and midfoot with fat layer exposed | CPT/HCPCS: 11042 ==

== ENCOUNTER 2021-01-19 06:26 | Outpatient (CLI) | payer OTHER, SELFPAY ==
[2021-01-19] MEDS: octreotide LAR depot 20 mg Kit 40 MG IM (11:40)
== END 2021-01-19 06:27 | disposition home or self-care (01) ==
LOC: ONCMED 06:27
PROVIDERS: PCP Nurse Practitioner Family; Visit Provider Internal Medicine Medical Oncology
DX: C7A.8 Other malignant neuroendocrine tumors (principal); D50.8 Other iron deficiency anemias; Z79.818 Long term (current) use of other agents affecting estrogen receptors and estrogen levels
CPT/HCPCS: 96372; J2353

== ENCOUNTER 2021-01-25 13:12 | Outpatient (CLI) | payer OTHER, SELFPAY | END 2021-01-25 13:13 | disposition home or self-care (01) | LOC: WOUND 13:13 | PROVIDERS: PCP Nurse Practitioner Family; Visit Provider Nurse Practitioner Family | DX: E11.621 Type 2 diabetes mellitus with foot ulcer (principal); L97.519 Non-pressure chronic ulcer of other part of right foot with unspecified severity; L97.412 Non-pressure chronic ulcer of right heel and midfoot with fat layer exposed | CPT/HCPCS: 11042 ==

== ENCOUNTER 2021-02-01 13:08 | Outpatient (CLI) | payer OTHER, SELFPAY | END 2021-02-01 13:09 | disposition home or self-care (01) | LOC: WOUND 13:09 | PROVIDERS: PCP Nurse Practitioner Family; Visit Provider Nurse Practitioner Family | DX: E11.621 Type 2 diabetes mellitus with foot ulcer (principal); L97.512 Non-pressure chronic ulcer of other part of right foot with fat layer exposed; L97.412 Non-pressure chronic ulcer of right heel and midfoot with fat layer exposed | CPT/HCPCS: 11042 ==

== ENCOUNTER 2021-02-14 11:23 | Outpatient (CLI) | payer OTHER, SELFPAY ==
[2021-02-14 12:43] LABS: Alanine Aminotransferase 10 U/L (0-41); Albumin Level 4.1 g/dL (3.5-5.2); Alkaline Phosphatase 99 IU/L (40-130); Blood Urea Nitrogen 50 mg/dL (8-23); Calcium 7.8 mg/dL (8.5-10.5); Carbon Dioxide 20 mmol/L (22-29); Chloride 100 mmol/L (98-107); Globulin 3.8 g/dL (1.3-4.6); Glucose 117 mg/dL (65-115); Osmolality Calculated 294 mOsm/kg (285-295); Sodium 135 mmol/L (136-145); Total Bilirubin 0.3 mg/dL (0.15-1.2); Total Protein 7.9 g/dL (6.6-8.7)
[2021-02-14 12:44] LABS: Ferritin 465 ng/mL (30-400); Iron 54 ug/dL (59-158)
[2021-02-14 12:45] LABS: Anion Gap 20.5 (5-19); Aspartate Amino Transferase 15 U/L (0-40); Percent Saturation 19.5 % (20-50); Potassium 5.5 mmol/L (3.5-5.1); Total Iron Binding Capacity 276 mcg/dl; Unsaturated Iron Binding 222 ug/dL (112-347)
[2021-02-14] MEDS: octreotide LAR depot 20 mg Kit 40 MG IM (13:15)
--- NOTE | 2021-02-15 14:37 | ONC FU_ITS ---
Dr. Allen Patient Follow-Up Note Patient: Marco Antonio Valadez Unit #: [id number]: 1940 Dicatated By: Jeyson Allen M.D.Date of Visit:Feb 14, 2021 Onc Med Follow-up/Prog Note Chief Complaint: Pancreatic neuroendocrine tumor/anemia. 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 He also has moderately severe anemia. He has a prior history of prostate cancer treated with cryoablation in 1999, in [facility]. 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 He has subsequently presented with progressive central abdominal pain, diarrhea and B12 deficiency. He underwent further workup at [facility]. Endoscopic ultrasound on 01/12/2014 showed 7.1 cm mass around the head of the pancreas but did not appear to be part of the liver, pancreas or duodenum. There was significant enlarged peripancreatic lymphadenopathy up to 2.1 cm as well as enlarged lymph nodes in the mediastinum and the lower paraesophageal area. Fine needle aspiration of the dominant mass revealed low-grade neuroendocrine carcinoma with immunohistochemistry positive for synaptophysin, chromogranin A and MIB1. Mitotic count was reported extremely low. CT scan on 01/20/2015 without contrast showed dominant mass in the head of the pancreas. He was deemed to be a poor surgical candidate. He was then followed by Dr. Donis in [facility]. 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 Baseline octreotide scan on 04/28/2014 revealed activity in the tip of the liver and abdominal central activity in the head of the pancreas and transverse colon; but CT correlate was not available for the comparison. He began on serial somatostatin injections monthly. He was first seen by Dr. Elliott on 08/22/2014. He reported no further abdominal pain, diarrhea, or flushing. In general his symptoms had markedly improved since initiation of injections. Restaging PET/CT on 11/19/2014 showed a single enlarging mass measuring 7.8 cm with SUV 4.8, centered at the head of the pancreas. Switching therapy to TKI was discussed, but he eventually decided against it, and sandostatin treatment was continued. As of August 2017 there have been no evidence of disease progression on his restaging octreotide scan, and repeat CT scans of the abdomen/pelvis in March 2018 showed stable pancreatic head mass measuring 8.5 x 7.6 cm. The solid-appearing left upper pole renal lesion also appeared stable from 2018, but it had increased compared to studies in 2017. His other medical illnesses include obesity, hypertension, hyperlipidemia, type II diabetes, coronary artery disease, GERD, and degenerative arthritis. He has chronic kidney disease, and he also has chronic anemia. He has had previous coronary angioplasty/stent placement. He has had treatment for prostate cancer which included cryosurgery in 1999 and orchiectomy 2000. He is a nonsmoker. INTERIM HISTORY: As of February 2018 there was further decrease in his hemoglobin to 9.5 g. His subsequent serum iron studies appeared to be consistent with iron deficiency with transferrin saturation 15.3% and ferritin 66.0 ng/mL. He then began a trial of oral iron supplementation with ferrous sulfate, which he did not tolerate due to constipation. In June 2018 he was given parenteral iron replacement with 2 infusions of Injectafer. During follow-up there was some increase in the hemoglobin/hematocrit levels, but he remained mildly anemic. He continued treatment with Sandostatin LAR. Restaging CT of the abdomen/pelvis on 10/02/2018 showed persistent, bulky, oval-shaped soft tissue mass arising within or adjacent to the head of the pancreas measuring 7.8 x 9 x 7.1 cm compared to 7.2 x 8.5 x 7.4 cm on the April 2018 study. The overall appearance was similar to the prior studies from April 2018 and November 2017. Bilateral low-density renal lesions appeared stable and appeared to be most likely cysts. His restaging CT abdomen/pelvis on 10/28/2019 showed stable appearance of the large, well-circumscribed soft tissue mass in the right abdomen, contiguous and inseparable from the pancreatic head. It measured 7.9 x 9.1 x 8.0 cm. Prominent iliac chain lymph nodes measuring up to 1.5 cm also showed long-term stability. There were indeterminate bilateral renal masses. In the absence of any evidence of disease progression, he continued monthly Sandostatin LAR injections. Repeat CT of the abdomen/pelvis on 11/30/2020 showed slight increase in the mass in the region of the pancreatic head/duodenum, measuring 7.5 x 9.6 x 9.7 cm. There was evidence of acute appearing L5 vertebral body fracture. Prominent iliac chain lymph nodes were noted to be stable. He is seen for a scheduled visit. He has not been feeling good generally. He has now been admitted to [facility]. He has been going to wound care for treatment of a diabetic foot ulceration with associated osteomyelitis. Last month he was seen in the emergency room with increased pain in his lower back/tailbone area and right hip. His lumbar spine CT showed evidence of healing L5 vertebral fracture compared the CT from November. There was evidence for lower lumbar degenerative disease with multilevel spinal stenosis, severe at L4-L5. His CT of the pelvis showed no acute findings. There were findings of moderate degenerative disease in the left hip. He continues to have very limited activity. ECOG score is 3. His main complaint is the right hip pain, though he also still has pain in his low back and tailbone area. He has to lie down to get relief. He still has good appetite. He has not had fever. He has having some hot flashes. He has not had sore mouth or throat. He sometimes gets food stuck in his windpipe. He otherwise is not having cough. He has shortness of breath, and he is on continuous oxygen. He has had pain in the center of his chest, but that does correlate with the position of his arms. He currently has no GI or complaints. He has no focal neurologic symptoms. Medications: Acetaminophen-Codeine 1 Tablet (of 300-30 mg) Oral q 6 hours PRN, Aspirin 1 Tablet (of 81 mg) Oral daily, Atorvastatin Calcium 0.5 Tablet (of 80 mg) Oral daily, Bicalutamide 1 Tablet (of 50 mg) Oral daily, Calcium + D 2 Tablet Oral daily, Clopidogrel Bisulfate 1 (75 mg) Tablet Oral daily, Clotrimazole (1 %) Cream Topical Take as Directed, DULoxetine HCl 1 Capsule (of 20 mg) Capsule Delayed Release Particles Oral daily, Famotidine 1 Tablet (of 20 mg) Oral b.i.d., Gabapentin 1 (100 mg) Capsule Oral at bedtime, Insulin Glargine (100 Units/mL) Subcutaneous at bedtime PRN, Isosorbide Mononitrate ER 1 Tablet (of 30 mg) Tablet SR 24 HR Oral daily, Lantus Subcutaneous, Loperamide HCl 2 Capsule (of 2 mg) Oral PRN, Nitroglycerin Tablet, sublingual Sublingual PRN, NovoLOG (100 Units/mL) Subcutaneous Take as Directed, Omeprazole 1 Capsule (of 40 mg) Capsule Delayed Release Oral daily, Torsemide 1 Tablet (of 20 mg) Oral daily Allergies: IV dye used for chemical stress test and metal steel . Vital Signs: Performed on Feb 14, 2021 11:53 Height - 68.00 in Temperature - 98.5 F Pulse - 88 /min Respiration - 18 /min BP - 120/78 mm(hg) O2 Sat - 97 % Pain - 0 Fatigue - 0 Physical Examination: Constitutional - He appears generally weak and he has limited mobiltiy, Eyes - Sclerae nonicteric. Conjunctivae clear, ENMT - No lesions noted in the oral cavity, Hematologic/Lymphatic - No cervical, clavicular, or axillary adenopathy, Respiratory - Lungs sound clear with some decrease in air movement bilaterally, Cardiovascular - Heart rhythm is irregular. There is a II/ systolic murmur. There is no gallop or rub noted, Abdomen - Distended. Liver and spleen are not enlarged. There is no abdominal mass or ascites noted and there is no inguinal adenopathy, Extremities - He has chronic lower extremity edema, but with some improvement, Neurologic - No focal neurologic deficits noted. Lab/Imaging: Test performed on Feb 14, 2021 12:00 Ferritin 465 ng/mL Iron 54 mcg/dL Sodium 135 mmol/L Iron Binding Capacity (TIBC) 276 mcg/dl Potassium 5.5 mmol/L % Iron Saturation 19.5 % Chloride 100 mmol/L CO2 20 mmol/L UIBC 222 mcg/dL Anion Gap 20.5 BUN 50 mg/dL Creatinine 2.6 mg/dL Cr Clearance (Est) 45.5300 mL/min Glucose 117 mg/dL Osmolality - Calculated 294 mOsm/kg Calcium 7.8 mg/dL Protein, Total 7.9 g/dL Albumin 4.1 g/dL Globulin 3.8 g/dL Bilirubin, Total 0.3 mg/dL ALT (SGPT) 10 U/L AST (SGOT) 15 U/L Alkaline Phosphatase 99 IU/L Problem List: 1. Low-grade neuroendocrine carcinoma of the pancreas, stage IV. 2. He has anemia which appears to be multifactorial. 3. Chronic kidney disease. 4. Obesity. 5. Hypertension. 6. Hyperlipidemia. 7. Type II diabetes. 8. Coronary artery disease. 9. Degenerative arthritis/degenerative disease of the spine. 10. He also has had treatment for prostate cancer. Bone scan in July 2015 was negative for metastatic disease. Problems Addressed with this Encounter and Plan: 1. 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 He was found to have a stage IV low-grade neuroendocrine carcinoma involving a large mass at the level of the pancreas with possible involvement in mediastinal and peripancreatic lymph nodes, though the latter was not confirmed by subsequent PET imaging. He was deemed not to be a surgical candidate. His symptoms of abdominal pain, diarrhea, and flushing improved with initiation of Sandostatin in April of 2014. During follow-up he has had persistent, large mass pancreatic head mass. It had shown long-term stability on follow-up CT scans. However, did show a slight increase in size on the most recent study from November 2020. As he is not a surgical candidate, for the time being he will continue treatment with Sandostatin LAR 40 mg by intramuscular injection monthly. He will require ongoing monitoring, as there may be other treatment options available if he continues to show progression. I will tentatively plan a follow-up visit in 3 months. 2. He has moderately severe anemia. This is appears to be multifactorial. At least some component is likely due to his underlying chronic kidney disease. At one point he also had evidence of iron deficiency, for which he was given parenteral iron replacement with Injectafer. During follow-up he has continued to have mild to moderately severe anemia. We are not able to obtain a CBC with his lab draw here today, but he apparently also [facility] I will plan further evaluation for the anemia when those results are available. 3. He has degenerative arthritis and degenerative disease of the spine. His lumbar spine CT in January 2021 showed multilevel spinal stenosis which was noted to be severe at L4-L5. He has persistent pain in the lower back and he has been having severe pain in the right hip area. Given the CT findings, he will be scheduled for further evaluation with MRI of the lumbar spine, pelvis, and right hip, but that will be subject to [facility] approval. Signed By: Jeyson Allen M.D. <<Signature on File>>
[2021-02-22 13:17] LABS: Chromogranin A LC/MS/MS 910 ng/mL (ADULTS: <311)
== END 2021-02-14 11:24 | disposition home or self-care (01) ==
LOC: ONCMED 11:26
PROVIDERS: PCP Nurse Practitioner Family; Visit Provider Internal Medicine Medical Oncology
DX: C7A.098 Malignant carcinoid tumors of other sites (principal); D63.1 Anemia in chronic kidney disease; D50.9 Iron deficiency anemia, unspecified; I12.9 Hypertensive chronic kidney disease with stage 1 through stage 4 chronic kidney disease, or unspecified chronic kidney disease; E11.22 Type 2 diabetes mellitus with diabetic chronic kidney disease; N18.9 Chronic kidney disease, unspecified; E66.9 Obesity, unspecified; E78.5 Hyperlipidemia, unspecified; E11.59 Type 2 diabetes mellitus with other circulatory complications; I25.10 Atherosclerotic heart disease of native coronary artery without angina pectoris; M51.36 Other intervertebral disc degeneration, lumbar region; M48.061 Spinal stenosis, lumbar region without neurogenic claudication; Z85.46 Personal history of malignant neoplasm of prostate; Z79.818 Long term (current) use of other agents affecting estrogen receptors and estrogen levels; Z79.899 Other long term (current) drug therapy; Z79.4 Long term (current) use of insulin
CPT/HCPCS: 36415; 80053; 82728; 83540; 83550; 85025; 86316; 96372; 99215; J2353

== ENCOUNTER 2021-02-21 08:42 | Outpatient (CLI) | payer OTHER, SELFPAY ==
[2021-02-21] MEDS: diphenhydrAMINE 25 mg Capsule PO (09:45)
[2021-02-21] MEDS: sodium chloride 0.9% 250 ML 999 ML IV (09:45)
[2021-02-21] MEDS: acetaminophen 325 mg Tablet 650 MG PO (09:45)
[2021-02-21 11:45] VITALS: BP 128/70; PULSE 81; RESP 18; TEMP 36.1; O2SAT 82
[2021-02-21] MEDS: FUROsemide 10 mg/mL SDV 2mL 20 MG IV (13:50)
[2021-02-21 13:55] VITALS: BP 130/76; PULSE 80; RESP 18; TEMP 36.1; O2SAT 93
[2021-02-21 16:23] VITALS: BP 126/76; PULSE 71; RESP 18; TEMP 36.6; O2SAT 98
[2021-02-22 16:22] LABS: Erythropoietin 15.4 mIU/mL (2.6-18.5)
== END 2021-02-21 08:43 | disposition home or self-care (01) ==
LOC: ONCMED 08:43
PROVIDERS: PCP Nurse Practitioner Family; Visit Provider Internal Medicine Medical Oncology
DX: C7A.8 Other malignant neuroendocrine tumors (principal); D50.8 Other iron deficiency anemias; E11.21 Type 2 diabetes mellitus with diabetic nephropathy; R53.82 Chronic fatigue, unspecified; Z85.46 Personal history of malignant neoplasm of prostate; Z91.19 Patient's noncompliance with other medical treatment and regimen
CPT/HCPCS: 36415; 36430; 82668; 86850; 86900; 86920; J1940; J7050; P9016; P9040

== ENCOUNTER 2021-03-01 13:48 | Outpatient (CLI) | payer OTHER, SELFPAY | END 2021-03-01 13:49 | disposition home or self-care (01) | LOC: ONCMED 13:50 | PROVIDERS: Visit Provider Internal Medicine Medical Oncology | DX: C7A.8 Other malignant neuroendocrine tumors (principal); C7B.8 Other secondary neuroendocrine tumors; E11.22 Type 2 diabetes mellitus with diabetic chronic kidney disease; N18.9 Chronic kidney disease, unspecified; I12.9 Hypertensive chronic kidney disease with stage 1 through stage 4 chronic kidney disease, or unspecified chronic kidney disease; D63.1 Anemia in chronic kidney disease; E78.5 Hyperlipidemia, unspecified; E11.59 Type 2 diabetes mellitus with other circulatory complications; I25.10 Atherosclerotic heart disease of native coronary artery without angina pectoris; Z79.818 Long term (current) use of other agents affecting estrogen receptors and estrogen levels; Z79.899 Other long term (current) drug therapy; Z85.46 Personal history of malignant neoplasm of prostate | CPT/HCPCS: 96372; J0885; Q4081 ==

== ENCOUNTER 2021-03-06 11:40 | Outpatient (CLI) | payer OTHER, SELFPAY ==
[2021-03-06 12:03] LABS: Basophils % 0.3 %; Eosinophils # 0.1 10^3/uL (0.0-0.8); Hematocrit 27.7 % (42.0-52.0); Hemoglobin 8.2 g/dL (11.7-16.6); Lymphocytes # 0.4 10^3/uL (0.8-4.8); Lymphocytes % 7.3 %; Mean Corpuscular HGB Conc 29.6 g/dL (30.0-36.0); Mean Corpuscular Volume 97.9 fl (80-94); Mean Platelet Volume 11.5 fL (7.4-10.4); Monocytes # 0.4 10^3/uL (0.2-0.9); Monocytes % 7.2 %; Neutrophils # 4.78 10^3/uL (1.8-7.7); Neutrophils % 83.7 %; Nucleated Red Blood Cells % 0.3 %; Platelet Count 192 10^3/cmm (130-400); Red Blood Count 2.83 10^6/uL (4.1-5.3); Red Cell Distribution Width 14.6 % (12.1-15.1); White Blood Count 5.7 10^3/uL (4.0-10.0)
[2021-03-06 12:20] LABS: Alanine Aminotransferase 7 U/L (0-41); Albumin Level 3.6 g/dL (3.5-5.2); Alkaline Phosphatase 105 IU/L (40-130); Anion Gap 20.9 (5-19); Aspartate Amino Transferase 9 U/L (0-40); Blood Urea Nitrogen 54 mg/dL (8-23); Calcium 6.1 mg/dL (8.5-10.5); Carbon Dioxide 19 mmol/L (22-29); Chloride 102 mmol/L (98-107); Globulin 2.8 g/dL (1.3-4.6); Glucose 125 mg/dL (65-115); Osmolality Calculated 298 mOsm/kg (285-295); Potassium 5.9 mmol/L (3.5-5.1); Sodium 136 mmol/L (136-145); Total Bilirubin 0.2 mg/dL (0.15-1.2); Total Protein 6.4 g/dL (6.6-8.7)
== END 2021-03-06 11:41 | disposition home or self-care (01) ==
LOC: LAB 11:43
PROVIDERS: PCP Internal Medicine; Visit Provider Internal Medicine Medical Oncology
DX: C61 Malignant neoplasm of prostate (principal)
CPT/HCPCS: 80053; 85025

== ENCOUNTER 2021-03-07 10:57 | Outpatient (CLI) | payer OTHER, SELFPAY | END 2021-03-07 10:58 | disposition home or self-care (01) | PROVIDERS: PCP Internal Medicine; Visit Provider Internal Medicine Medical Oncology | DX: C7A.8 Other malignant neuroendocrine tumors (principal); C7B.8 Other secondary neuroendocrine tumors; E11.22 Type 2 diabetes mellitus with diabetic chronic kidney disease; N18.9 Chronic kidney disease, unspecified; I12.9 Hypertensive chronic kidney disease with stage 1 through stage 4 chronic kidney disease, or unspecified chronic kidney disease; D63.1 Anemia in chronic kidney disease; E78.5 Hyperlipidemia, unspecified; E11.59 Type 2 diabetes mellitus with other circulatory complications; I25.10 Atherosclerotic heart disease of native coronary artery without angina pectoris; Z79.818 Long term (current) use of other agents affecting estrogen receptors and estrogen levels; Z79.899 Other long term (current) drug therapy; Z85.46 Personal history of malignant neoplasm of prostate | CPT/HCPCS: 96372; J0885; Q4081 ==

== ENCOUNTER 2021-03-19 14:03 | Outpatient (CLI) | payer MEDICARE, MEDICAID, SELFPAY ==
[2021-03-19] MEDS: octreotide LAR depot 20 mg Kit 40 MG IM (14:38)
== END 2021-03-19 14:04 | disposition home or self-care (01) ==
PROVIDERS: PCP Internal Medicine; Visit Provider Internal Medicine Medical Oncology
DX: C7A.8 Other malignant neuroendocrine tumors (principal); C7B.8 Other secondary neuroendocrine tumors; E11.22 Type 2 diabetes mellitus with diabetic chronic kidney disease; N18.6 End stage renal disease; D63.1 Anemia in chronic kidney disease; I12.0 Hypertensive chronic kidney disease with stage 5 chronic kidney disease or end stage renal disease; Z99.2 Dependence on renal dialysis; E78.5 Hyperlipidemia, unspecified; E11.59 Type 2 diabetes mellitus with other circulatory complications; I25.10 Atherosclerotic heart disease of native coronary artery without angina pectoris; E16.4 Increased secretion of gastrin; Z79.4 Long term (current) use of insulin; Z79.818 Long term (current) use of other agents affecting estrogen receptors and estrogen levels; Z79.899 Other long term (current) drug therapy
CPT/HCPCS: 96372; J2353; Q4081

== ENCOUNTER 2021-03-21 10:43 | Inpatient (IN) | payer OTHER, MEDICARE, SELFPAY ==
[2021-03-21] VITALS (14 sets, daily range): BP systolic 131–142; BP diastolic 83–96; PULSE 83–89; RESP 14–33; TEMP 36.7–36.8; O2SAT 92–98; BMI 53.1; BMI 54.1
--- NOTE | 2021-03-21 11:07 | W.ED.GENADLT ---
HPI - General Adult General: Chief complaint: General Medical Stated complaint: ELEVATED RENAL LABS Time Seen by Provider: 03/21/21 10:45 Source: patient Mode of arrival: EMS History of Present Illness: 81-year-old male presents from [facility] with abnormal labs. He is alert and oriented he is not sure why he is here he states basically is feeling fine denies chest pain or abdominal pain. There reportedly had abnormal renal function and referred him to the emergency room. Onset (ago): unknown Relieving factors: none Exacerbating factors: none Associated symptoms: Deny chest pain, confusion, cough, diaphoresis, decreased appetite, dyspnea, fevers/chills, headache(s), malaise, nausea, rash, palpitations, seizures, short of breath, syncope, vomiting or weakness Treatments prior to arrival: none Review of Systems Const: Denies: malaise or diaphoresis ENMT: Denies: throat pain, ear or mastoid pain, nasal discharge or nasal congestion Card: Denies: chest pain, palpitations or syncope Resp: Denies: dyspnea GI: Denies: nausea or vomiting : Denies: flank pain, dysuria, urinary frequency or urinary urgency Skin/Breast: Denies: rash Neuro: Denies: headache(s) or confusion PFSH ED PFSH: Medical History Aortic stenosis B12 deficiency Chronic kidney disease Closed fracture of lumbar vertebral body (~11/2020) L5 COPD (chronic obstructive pulmonary disease) Coronary disease COVID-19 vaccine administered moderna, full + booster Degenerative disc disease Dyslipidemia GERD (gastroesophageal reflux disease) History of echocardiogram EF 45-50% 06/2020 Hypertension Iron deficiency anemia Morbid obesity Neuroendocrine tumor Stage IV, low-grade, around the head of the pancreas/duodenum, with lymph node prominence, treated with sandostatin, follows with Dr Allen, not a surgical candidate Osteoarthritis Peripheral vascular disease including carotid disease Prostate cancer Renal mass bilateral, indeterminant Sleep apnea Systolic and diastolic CHF, chronic Type 2 diabetes mellitus Venous stasis Shila-Hernandez syndrome diagnosed in Surgical History H/O prostatectomy History of coronary artery stent placement History of orchiectomy S/P hemodialysis catheter insertion (03/25/21) Family History Other Chronic kidney disease (CKD) Diabetes Hyperlipidemia Hypertension Denies family history of Cancer Social History Smoking and tobacco status: never smoked Alcohol intake: never Substance/Drug Use: never Caregiver/support person: Yes (daughter) Housing: [facility] Physical Exam Const: COMMON NORMALS: no acute distress GENERAL APPEARANCE: cooperative and comfortable ORIENTATION/CONSCIOUSNESS: Yes oriented to person, Yes oriented to place and Yes oriented to time HENMT: COMMON NORMALS: normocephalic and atraumatic HEAD & SCALP: normocephalic and atraumatic Neck/C-Spine: COMMON NORMALS: no JVD Resp: COMMON NORMALS: normal respiratory effort, No retractions, No use of accessory muscles and clear to auscultation bilaterally AUSCULTATION: clear to auscultation bilaterally Cardio: COMMON NORMALS: no JVD, regular rate, regular rhythm and No murmurs present (Cardio) RATE: regular rate RHYTHM: regular rhythm GI: COMMON NORMALS: Soft to palpation and No hepatosplenomegaly present AUSCULTATION: Yes normoactive bowel sounds PALPATION: Yes Soft to palpation, No Tenderness to palpation present (GI), No Guarding due to palpation present (GI) and Yes No hepatosplenomegaly present Extremity: COMMON NORMALS: normal to inspection, capillary refill normal, no clubbing, cyanosis or edema, no calf tenderness and no pedal edema Neuro: SENSORIUM/ORIENTATION: Yes oriented to person, Yes oriented to place and Yes oriented to time Skin: COMMON NORMALS: no rashes or lesions noted GENERAL SKIN EXAM: no rashes or lesions noted Course Vital Signs: Vital signs: Vital Signs Temperature 98.5 F 03/26/21 08:15 Pulse Rate 98 03/26/21 13:15 Respiratory Rate 12 03/26/21 13:15 Blood Pressure 125/72 03/26/21 10:01 Pulse Oximetry 98 03/26/21 13:15 [facility] - General Adult Medical Decision Making Acute renal failure. Anemia. Patient is also diabetic discussed with hospitalist orders written will admit Medical Records I reviewed the patient's medical records. Lab Data I reviewed the patient's lab results. : 03/26/21 03:40 03/26/21 03:40 Radiology Impressions Chest X-Ray 03/21/21 11:11 IMPRESSION: 1. Shallow inspiration with cardiomegaly. 2. Volume loss LEFT lower lobe with bilateral lower lobe infiltrates. LEFT hemidiaphragm is obscured. 3. Probable small bilateral pleural effusions. 4. Advanced chronic emphysematous changes. Renal Ultrasound 03/22/21 09:15 IMPRESSION: 1. LEFT kidney is not identified probably due to body habitus. No history of prior nephrectomy. 2. Normal size RIGHT kidney with a stable RIGHT renal cyst. C-Arm Fluoroscopy 03/25/21 10:23 IMPRESSION: Intraoperative imaging during dialysis catheter placement. Laboratory Results WBC 4.8 10^3/uL (4.0-10.0) 03/21/21 11:20 RBC 2.99 10^6/uL (4.1-5.3) L 03/21/21 11:20 Hgb 8.7 g/dL (11.7-16.6) L 03/21/21 11:20 Hct 29.8 % (42.0-52.0) L 03/21/21 11:20 MCV 99.7 fl (80-94) H 03/21/21 11:20 MCH 29.1 pg (28.0-34.0) 03/21/21 11:20 MCHC 29.2 g/dL (30.0-36.0) L 03/21/21 11:20 RDW 16.1 % (12.1-15.1) H 03/21/21 11:20 Plt Count 140 10^3/cmm (130-400) 03/21/21 11:20 MPV 11.2 fL (7.4-10.4) H 03/21/21 11:20 Neut % (Auto) 77.5 % 03/21/21 11:20 Lymph % (Auto) 11.3 % 03/21/21 11:20 [place] % (Auto) 6.9 % 03/21/21 11:20 Eos % (Auto) 3.1 % 03/21/21 11:20 Baso % (Auto) 0.8 % 03/21/21 11:20 Neut # (Auto) 3.71 10^3/uL (1.8-7.7) 03/21/21 11:20 Lymph # (Auto) 0.5 10^3/uL (0.8-4.8) L 03/21/21 11:20 [place] # (Auto) 0.3 10^3/uL (0.2-0.9) 03/21/21 11:20 Eos # (Auto) 0.2 10^3/uL (0.0-0.8) 03/21/21 11:20 Baso # (Auto) 0.0 10^3/uL (0.0-0.1) 03/21/21 11:20 Nucleated RBC % (auto) 0.4 % 03/21/21 11:20 Nucleated RBCs # 0.0 /100WBC 03/21/21 11:20 Sodium 136 mmol/L (136-145) 03/21/21 12:30 Potassium 6.4 mmol/L (3.5-5.1) H 03/21/21 12:30 Chloride 104 mmol/L (98-107) 03/21/21 12:30 Carbon Dioxide 15 mmol/L (22-29) L 03/21/21 12:30 Anion Gap 23.4 (5-19) H 03/21/21 12:30 BUN 69 mg/dL (8-23) H 03/21/21 12:30 Creatinine 5.7 mg/dL (0.7-1.2) H* 03/21/21 12:30 GFR Calculation Not Reportable 03/21/21 12:30 Glucose 164 mg/dL (65-115) H 03/21/21 12:30 Calculated Osmolality 306 mOsm/kg (285-295) H 03/21/21 12:30 Calcium 6.5 mg/dL (8.5-10.5) L 03/21/21 12:30 Total Bilirubin 0.3 mg/dL (0.15-1.2) 03/21/21 12:30 AST 9 U/L (0-40) 03/21/21 12:30 ALT 7 U/L (0-41) 03/21/21 12:30 Alkaline Phosphatase 76 IU/L (40-130) 03/21/21 12:30 Creatine Kinase 109 U/L (39-308) 03/21/21 12:30 Total Protein 7.0 g/dL (6.6-8.7) 03/21/21 12:30 Albumin 3.5 g/dL (3.5-5.2) 03/21/21 12:30 Globulin 3.5 g/dL (1.3-4.6) 03/21/21 12:30 Coronavirus 229E (PCR) Not detected (NOT DETECT) 03/21/21 12:05 SARS-CoV-2 (PCR) Not detected (NOT DETECT) 03/21/21 12:05 Discharge Plan Discharge Patient Disposition: Admitted As Inpatient Admit Provider: Rosa Johnson Clinical Impression: Acute renal failure, Chronic kidney disease, Hypertension, CHF (congestive heart failure), Morbid obesity, Iron deficiency anemia, Coronary disease, Diabetic ulcer of right foot, Dyslipidemia Condition: Stable Coding Level of Care Code ED [facility] for [facility]
--- NOTE | 2021-03-21 11:11 | XR_ITS ---
WS: [id number] CHEST XRAY TECHNIQUE: Portable chest. CLINICAL INFORMATION: dyspnea/cough COMPARISON: November 10, 2020 FINDINGS: Shallow inspiration. Heart: Cardiomegaly. Aortic calcification. Lungs: Advanced chronic emphysematous changes. Bibasilar infiltrates with volume loss LEFT lower lobe . Probable small pleural effusions. Bones: Normal visualized bony structures. XR/XR chest 1V portable [id number] IMPRESSION: 1. Shallow inspiration with cardiomegaly. 2. Volume loss LEFT lower lobe with bilateral lower lobe infiltrates. LEFT hem idiaphragm is obscured. 3. Probable small bilateral pleural effusions. 4. Advanced chronic emphysematous changes.
[2021-03-21 11:33] LABS: Basophils % 0.8 %; Eosinophils # 0.2 10^3/uL (0.0-0.8); Eosinophils % 3.1 %; Hematocrit 29.8 % (42.0-52.0); Hemoglobin 8.7 g/dL (11.7-16.6); Lymphocytes # 0.5 10^3/uL (0.8-4.8); Lymphocytes % 11.3 %; Mean Corpuscular HGB Conc 29.2 g/dL (30.0-36.0); Mean Corpuscular Hemoglobin 29.1 pg (28.0-34.0); Mean Corpuscular Volume 99.7 fl (80-94); Mean Platelet Volume 11.2 fL (7.4-10.4); Monocytes # 0.3 10^3/uL (0.2-0.9); Monocytes % 6.9 %; Neutrophils # 3.71 10^3/uL (1.8-7.7); Neutrophils % 77.5 %; Nucleated Red Blood Cells % 0.4 %; Platelet Count 140 10^3/cmm (130-400); Red Blood Count 2.99 10^6/uL (4.1-5.3); Red Cell Distribution Width 16.1 % (12.1-15.1); White Blood Count 4.8 10^3/uL (4.0-10.0)
[2021-03-21] MEDS: calcium chloride 10% Syr 10 mL 1 GM IVP (11:43)
[2021-03-21] MEDS: sodium polystyrene sulfonate 15 gm/60 mL Btl PO ×2 (11:43→22:58)
[2021-03-21] MEDS: ondansetron 2 mg/ML SDV 2 mL 4 MG IVP (11:44)
[2021-03-21] MEDS: levofloxacin-dextrose 5 % 500 MG/100 ML PREMIX 100 MG IV (11:44)
--- NOTE | 2021-03-21 12:26 | PC.PHAR ---
pt is from [facility] pts nurse from [facility] states the pt took his am meds but states he hasnt been taking his insulin state his blood sugar has been low
[2021-03-21 13:12] LABS: Alanine Aminotransferase 7 U/L (0-41); Albumin Level 3.5 g/dL (3.5-5.2); Alkaline Phosphatase 76 IU/L (40-130); Anion Gap 23.4 (5-19); Aspartate Amino Transferase 9 U/L (0-40); Blood Urea Nitrogen 69 mg/dL (8-23); Calcium 6.5 mg/dL (8.5-10.5); Carbon Dioxide 15 mmol/L (22-29); Chloride 104 mmol/L (98-107); Creatine Phosphokinase 109 U/L (39-308); Globulin 3.5 g/dL (1.3-4.6); Glucose 164 mg/dL (65-115); Osmolality Calculated 306 mOsm/kg (285-295); Potassium 6.4 mmol/L (3.5-5.1); Sodium 136 mmol/L (136-145); Total Bilirubin 0.3 mg/dL (0.15-1.2)
[2021-03-21 14:01] LABS: Adenovirus Not Detected (NOT DETECT); Chlamydia Pneumoniae Not Detected (NOT DETECT); Coronavirus 229E,HKU1,NL63,OC4 Not Detected (NOT DETECT); Human Metapneumovirus Not Detected (NOT DETECT); Human Rhinovirus/Enterovirus Not Detected (NOT DETECT); Influenza A Not Detected (NOT DETECT); Influenza A H1 Not Detected (NOT DETECT); Influenza A H1-2009 Not Detected (NOT DETECT); Influenza A H3 Not Detected (NOT DETECT); Influenza B Not Detected (NOT DETECT); Mycoplasma Pneumoniae Not Detected (NOT DETECT); Parainfluenza Virus Type 1 Not Detected (NOT DETECT); Parainfluenza Virus Type 2 Not Detected (NOT DETECT); Parainfluenza Virus Type 3 Not Detected (NOT DETECT); Parainfluenza Virus Type 4 Not Detected (NOT DETECT); Respiratory Syncytial Virus A Not Detected (NOT DETECT); Respiratory Syncytial Virus B Not Detected (NOT DETECT); SARS-COV-2 Not Detected (NOT DETECT)
--- NOTE | 2021-03-21 14:25 | ECG_ITS ---
[facility] Test Date: 2021-03-21 Pat Name: Marco Antonio Valadez Department: Room: Gender: Male Mycology Teacher: : 1940 Requested By: Lisandro Doe Order Number: [id number] Foreign MD: Maribel Infante M.D. Measurements Intervals [place]yer Rate: 85 P: 84 WI: 201 QRS: -28 QRSD: 102 T: 60 QT: 377 QTc: 449 Interpretive Statements SINUS RHYTHM LOW QRS VOLTAGE [QRS DEFLECTION < 0.5/1.0 mV IN LIMB/CHEST LEADS] POSSIBLE ANTERIOR MYOCARDIAL INFARCTION , PROBABLY OLD [30 ms Q WAVE IN V3/V4, OR R < 0.2 mV IN V4] Compared to ECG 11/30/2020 17:29:30 Myocardial infarct finding now present Intraventricular conduction delay no longer present Electronically Signed On 03-22-2021 11:05:17 AQUACULTURE DIRECTOR by Maribel Infante M.D. [id number]
[2021-03-21 17:05] LABS: Specific Gravity, Urine 1.025 (1.005-1.030); Urine Appearance Cloudy (CLEAR); Urine Color Yellow (Yellow); pH Urine 5 (5-7)
[2021-03-21 17:06] LABS: Add Urine Culture? No; Add Urine Microscopic? YES; Amorphous Sediment Urine 3+ /hpf; Bilirubin Urine Neg (Negative); Blood Urine Trace (Negative); Glucose Urine UA Trace (Normal); Ketones Urine Negative (Negative); Leukocyte Esterase Urine Negative (Negative); Nitrate Urine Negative (Negative); Protein Urine 2+ (Negative); RBC Urine 0-4 /hpf (0-2); Squamous Epithelial Cell Urine 0-4 /hpf (0-5); Urobilinogen Urine Neg (Negative); WBC Urine RARE /hpf (0-5)
--- NOTE | 2021-03-21 18:00 | P.HP_ITS ---
Providers/Chief Complaint Admitting Physician: Rosa Johnson MD Primary Care Provider: Umer Benavidez MD Chief Complaint: ELEVATED RENAL LABS History of Present Illness Marco Antonio Valadez is a 81 year old male who was sent from [facility] due to abnormal labs. He has a known history of chronic kidney disease that is described in records as stage II but on review of laboratory studies probably more consistent with stage IIIb-IV. Baseline creatinine has been gradually creeping upwards over time and from November to February was anywhere from 2.6-3.7 with BUN in the 50s. Comparatively in 2019 BUN and creatinine were generally 30s over low twos. He has a history of neuroendocrine tumor stage IV for which he follows with Dr. Allen and is on chronic simvastatin therapy. He also has a second malignancy with prostate cancer and is on Casodex. Imaging studies have revealed indet erminate bilateral renal masses previously. Kidney disease is from diabetes and hypertension. He had laboratory studies done on March 06 that showed BUN and creatinine of 54/4.7. At that time potassium was 5.9. Labs were rechecked on March 13 and showed BUN and creatinine of 72/5.94. Potassium was down to 5.48. Labs were rechecked today and were worse prompting patient to be sent to the emergency room. I do not have the value of the labs that were collected today. Patient's primary complaint is that of low back pain which is chronic but exacerbated by ER stretcher. He states he is able to get up and walk a little bit. He is short of breath. He has had chronic swelling. No reported fever but has not been feeling well. Had Covid PCR was checked in the emergency room and was negative. He is fully vaccinated with booster. Laboratory studies done revealed potassium of 6.4 and BUN and creatinine of 69/5.7. Patient received calcium and Kayexalate. He is being admitted for further evaluation and treatment. Review of Systems Const: Reports: chills and fatigue; Denies: fever(s) ENMT: Reports: dry mouth; Denies: throat pain Card: Reports: chest pain, edema, dyspnea on exertion and orthopnea; Denies: palpitations or lightheadedness Resp: Reports: dyspnea, productive cough and non-productive cough; Denies: pain on inspiration or hemoptysis GI: Reports: nausea and other (no change in bowels); Denies: abdominal pain, vomiting or hematochezia : Denies: flank pain, difficulty urinating or hematuria Musc: Reports: back pain and muscle cramps Skin/Breast: Reports: sores and other (wears compressive dressings); Denies: pruritus Neuro: Reports: numbness in extremities, weakness in extremities and difficulty walking Fernando/Lymph: Reports: easy bruising; Denies: easy bleeding Medications/Allergies Home Medications Medication Instructions Recorded Confirmed Last Taken Type nitroglycerin 0.4 mg sublingual 0.4 mg SUBLINGUAL Q5M PRN 03/16/19 03/21/21 Unknown History tablet torsemide 20 mg tablet 20 mg PO DAILY@03/16/19 03/21/21 03/21/21 History albuterol sulfate 90 mcg/actuation 1 puff INHALATION QID PRN 03/17/19 03/21/21 Unknown History aerosol inhaler bicalutamide 50 mg tablet 50 mg PO DAILY@03/17/19 03/21/21 03/21/21 History clopidogrel 75 mg tablet 75 mg PO DAILY@03/17/19 03/21/21 03/21/21 History duloxetine 20 mg capsule,delayed 20 mg PO BEDTIME@03/17/19 03/21/21 03/20/21 History release gabapentin 100 mg capsule 100 mg PO BEDTIME@03/17/19 03/21/21 03/20/21 History insulin aspart U-100 100 unit/mL 5 unit SUBCUT TID@07,11,17 #0 03/17/19 03/21/21 Unknown History (3 mL) subcutaneous pen (Novolog Flexpen U-100 Insulin aspart) acetaminophen 300 mg-codeine 30 mg 1 tab PO Q6H PRN 07/05/20 03/21/21 Unknown History tablet isosorbide mononitrate 60 mg 90 mg PO DAILY@08 tab 07/21/20 03/21/21 03/21/21 History tablet,extended release 24 hr pantoprazole 40 mg tablet,delayed 40 mg PO DAILY@11/10/20 03/21/21 03/21/21 History release tamsulosin 0.4 mg capsule (Flomax) 0.4 mg PO BEDTIME@11/10/20 03/21/21 03/20/21 History ondansetron 4 mg disintegrating 4 mg PO Q8H PRN #10 tab 11/30/20 03/21/21 Unknown Rx tablet aspirin 81 mg tablet,delayed 81 mg PO DAILY@03/21/21 03/21/21 03/21/21 History release (Adult Low Dose Aspirin) calcium 200 mg PO DAILY@03/21/21 03/21/21 03/21/21 History cholecalciferol (vitamin D3) 25 25 mcg PO DAILY@03/21/21 03/21/21 03/21/21 History mcg (1,000 unit) tablet (Vitamin D3) cyanocobalamin (vitamin B-12) 5,000 mcg SUBLINGUAL DAILY@03/21/21 03/21/21 03/21/21 History 5,000 mcg sublingual tablet (Vitamin B-12) ergocalciferol (vitamin D2) 1,250 50,000 unit PO Q7D 03/21/21 03/21/21 Unknown History mcg (50,000 unit) capsule ferrous sulfate 325 mg (65 mg 325 mg PO DAILY@03/21/21 03/21/21 03/21/21 History iron) tablet fluticasone propionate 50 2 spray INTRANASAL DAILY@03/21/21 03/21/21 03/21/21 History mcg/actuation nasal spray,suspension (Flonase Allergy Relief) insulin glargine 100 unit/mL (3 30 unit SUBCUT BID@03/21/21 03/21/21 Unknown History mL) subcutaneous pen (Lantus Solostar U-100 Insulin) Allergies Allergy/AdvReac Type Severity Reaction Status Date / Time Iodinated Contrast Media Allergy Mild ALGY-Hives Verified 03/21/21 10:50 lisinopril Allergy Unknown Verified 03/21/21 12:24 rosuvastatin [From Crestor] Allergy Unknown Verified 03/21/21 12:24 PFSH Acute PFSH: Medical History (Updated 03/21/21 @ 19:52 by Rosa Johnson MD) Aortic stenosis B12 deficiency Chronic kidney disease Closed fracture of lumbar vertebral body (~11/2020) L5 COPD (chronic obstructive pulmonary disease) Coronary disease COVID-19 vaccine administered moderna, full + booster Degenerative disc disease Dyslipidemia GERD (gastroesophageal reflux disease) History of echocardiogram EF 45-50% 06/2020 Hypertension Iron deficiency anemia Morbid obesity Neuroendocrine tumor Stage IV, low-grade, around the head of the pancreas/duodenum, with lymph no de prominence, treated with sandostatin, follows with Dr Allen, not a surgical candidate Osteoarthritis Peripheral vascular disease including carotid disease Prostate cancer Renal mass bilateral, indeterminant Sleep apnea Systolic and diastolic CHF, chronic Type 2 diabetes mellitus Venous stasis Shila-Hernandez syndrome diagnosed in Surgical History (Updated 03/21/21 @ 18:32 by Rosa Johnson MD) H/O prostatectomy History of coronary artery stent placement History of orchiectomy Family History (Updated 03/21/21 @ 19:48 by Rosa Johnson MD) Other Chronic kidney disease (CKD) Diabetes Hyperlipidemia Hypertension Denies family history of Cancer Social History (Updated 03/21/21 @ 18:58 by Rosa Johnson MD) Smoking and tobacco status: never smoked Alcohol intake: never Substance/Drug Use: never Caregiver/support person: Yes (daughter) Housing: Prison Vitals/I&O/Wt Last Vital Signs Temp 98.0 F 03/21/21 16:12 Pulse 83 03/21/21 16:12 Resp 14 03/21/21 16:12 BP 133/85 03/21/21 16:12 Pulse Ox 95 03/21/21 16:12 Weight last 48 hrs Weight 163.293 kg Physical Exam Narrative: Constitutional: Awake and alert, uncomfortable in ER stretcher, cooperative HEENT: Normocephalic, atraumatic, pupils are reactive equally, extraocular movem ents are intact, nasopharynx without significant rhinorrhea, oral pharynx with moist mucous membranes Neck: Large but supple Respiratory: Bibasilar crackles left greater than right, patient is lying on his left side due to back pain, no rhonchi noted, no wheezes Cardiovascular: Distant heart sounds, regular rhythm, no obvious murmurs, with patient leaning to the left difficult to fully evaluate for JVD but appears elevated Abdomen: Soft, obese, nontender : Normal external Extremities: 4+ edema to the low back and pannus area, back pain and hip pain noted on examination, no crepitus or induration palpated in areas of pain but ED stretcher and limited mobility is impacting present evaluation Skin: Chronic stasis changes to both lower extremities, has partial compression wraps to both legs. Underneath skin is erythematous with some desquamation. Not able to fully view feet at this time but has underlying breakdown to right heel and midfoot Neuro: With him leaning to the left due to back pain, appears to have facial droop but this corrects with sitting a little bit more upright or turning his head more upright, speech is clear, handgrip is equal, moves both feet Psych: Normal affect Data : 03/21/21 11:20 03/21/21 12:30 Other Labs: Radiology Impressions Chest X-Ray 03/21/21 11:11 IMPRESSION: 1. Shallow inspiration with cardiomegaly. 2. Volume loss LEFT lower lobe with bilateral lower lobe infiltrates. LEFT hemidiaphragm is obscured. 3. Probable small bilateral pleural effusions. 4. Advanced chronic emphysematous changes. Laboratory Results WBC 4.8 10^3/uL (4.0-10.0) 03/21/21 11:20 RBC 2.99 10^6/uL (4.1-5.3) L 03/21/21 11:20 Hgb 8.7 g/dL (11.7-16.6) L 03/21/21 11:20 Hct 29.8 % (42.0-52.0) L 03/21/21 11:20 MCV 99.7 fl (80-94) H 03/21/21 11:20 MCH 29.1 pg (28.0-34.0) 03/21/21 11:20 MCHC 29.2 g/dL (30.0-36.0) L 03/21/21 11:20 RDW 16.1 % (12.1-15.1) H 03/21/21 11:20 Plt Count 140 10^3/cmm (130-400) 03/21/21 11:20 MPV 11.2 fL (7.4-10.4) H 03/21/21 11:20 Neut % (Auto) 77.5 % 03/21/21 11:20 Lymph % (Auto) 11.3 % 03/21/21 11:20 [place] % (Auto) 6.9 % 03/21/21 11:20 Eos % (Auto) 3.1 % 03/21/21 11:20 Baso % (Auto) 0.8 % 03/21/21 11:20 Neut # (Auto) 3.71 10^3/uL (1.8-7.7) 03/21/21 11:20 Lymph # (Auto) 0.5 10^3/uL (0.8-4.8) L 03/21/21 11:20 [place] # (Auto) 0.3 10^3/uL (0.2-0.9) 03/21/21 11:20 Eos # (Auto) 0.2 10^3/uL (0.0-0.8) 03/21/21 11:20 Baso # (Auto) 0.0 10^3/uL (0.0-0.1) 03/21/21 11:20 Nucleated RBC % (auto) 0.4 % 03/21/21 11:20 Nucleated RBCs # 0.0 /100WBC 03/21/21 11:20 Sodium 136 mmol/L (136-145) 03/21/21 12:30 Potassium 6.4 mmol/L (3.5-5.1) H 03/21/21 12:30 Chloride 104 mmol/L (98-107) 03/21/21 12:30 Carbon Dioxide 15 mmol/L (22-29) L 03/21/21 12:30 Anion Gap 23.4 (5-19) H 03/21/21 12:30 BUN 69 mg/dL (8-23) H 03/21/21 12:30 Creatinine 5.7 mg/dL (0.7-1.2) H* 03/21/21 12:30 GFR Calculation Not Reportable 03/21/21 12:30 Glucose 164 mg/dL (65-115) H 03/21/21 12:30 Calculated Osmolality 306 mOsm/kg (285-295) H 03/21/21 12:30 Calcium 6.5 mg/dL (8.5-10.5) L 03/21/21 12:30 Total Bilirubin 0.3 mg/dL (0.15-1.2) 03/21/21 12:30 AST 9 U/L (0-40) 03/21/21 12:30 ALT 7 U/L (0-41) 03/21/21 12:30 Alkaline Phosphatase 76 IU/L (40-130) 03/21/21 12:30 Creatine Kinase 109 U/L (39-308) 03/21/21 12:30 Total Protein 7.0 g/dL (6.6-8.7) 03/21/21 12:30 Albumin 3.5 g/dL (3.5-5.2) 03/21/21 12:30 Globulin 3.5 g/dL (1.3-4.6) 03/21/21 12:30 Urine Color Yellow (Yellow) 03/21/21 15:40 Urine Appearance Cloudy (CLEAR) 03/21/21 15:40 Urine pH 5 (5-7) 03/21/21 15:40 Ur Specific [place] 1.025 (1.005-1.030) 03/21/21 15:40 Urine Protein 2+ (Negative) H 03/21/21 15:40 Urine Glucose (UA) Trace (Normal) H 03/21/21 15:40 Urine Ketones Negative (Negative) 03/21/21 15:40 Urine Blood Trace (Negative) H 03/21/21 15:40 Urine Nitrate Negative (Negative) 03/21/21 15:40 Urine Bilirubin Neg (Negative) 03/21/21 15:40 Urine Urobilinogen Neg mg/dL (Negative) 03/21/21 15:40 Ur Leukocyte Esterase Negative (Negative) 03/21/21 15:40 Urine RBC 0-4 /hpf (0-2) H 03/21/21 15:40 Urine WBC Rare /hpf (0-5) 03/21/21 15:40 Ur Squamous Epith Cells 0-4 /hpf (0-5) H 03/21/21 15:40 Amorphous Sediment 3+ /hpf 03/21/21 15:40 Urine Bacteria None /hpf (NONE) 03/21/21 15:40 Coronavirus 229E (PCR) Not detected (NOT DETECT) 03/21/21 12:05 SARS-CoV-2 (PCR) Not detected (NOT DETECT) 03/21/21 12:05 I have outside results of erythropoietin level of 9.1 and a folic acid level of 6.1 dated 02/19/2021 and 02/14/2021 respectively I have outside results of the hemoglobin A1c dated 02/14/2021 of 7.5 I have outside results of H&H of 09/02 dated 02/19/2021 Micro: Microbiology 03/21/21 12:10 Blood Culture - Preliminary Blood SPECIMEN COLLECTED 03/21/21 12:10 Blood Culture - Preliminary Blood SPECIMEN COLLECTED A&P Assessment and plan (1) Acute renal failure: On chronic kidney disease stage III-IV, presently with associated hyperkalemia Clinically appears total body volume overloaded Status: Acute Qualifiers: Acute renal failure type: with acute tubular necrosis Qualified Code(s): N17.0 - Acute kidney failure with tubular necrosis (2) CHF (congestive heart failure): Combined systolic and diastolic, EF 45 to 50% on last echocardiogram Chronically on torsemid, no noted recent dosage changes Chest x-ray with bilateral small effusions Status: Acute Qualifiers: Heart failure type: combined systolic and diastolic Heart failure chronicity: acute on chronic Qualified Code(s): I50.43 - Acute on chronic combined systolic (congestive) and diastolic (congestive) heart failure (3) Coronary disease: With intermittent chest pain that is somewhat atypical Chronically on aspirin, Plavix, isosorbide Metoprolol was stopped sometime in the last few months due to hypotension Status: Chronic Qualifiers: Coronary Disease-Associated Artery/Lesion type: [place] artery [place] vs. transplanted heart: [place] heart Associated angina: without angina Qualified Code(s): I25.10 - Atherosclerotic heart disease of [place] coronary artery without angina pectoris (4) Insulin dependent diabetes mellitus: Recent hemoglobin A1c 7.5, has associated peripheral neuropathy Chronically on twice daily Lantus and 3 times daily NovoLog Takes gabapentin for neuropathy Status: Acute (5) Hypertension: Controlled with diuretics and isosorbide else were prescribed Status: Chronic Qualifiers: Hypertension type: primary hypertension Qualified Code(s): I10 - Essential (primary) hypertension (6) Neuroendocrine tumor: Stage IV, 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 Has been treated with regular Sandostatin and follows with Dr. Allen. Also noted has been bilateral renal masses that were indeterminate. Status: Chronic (7) Prostate cancer: Chronically on Casodex and Flomax Status: Chronic (8) Iron deficiency anemia: Secondary to chronic kidney disease. Also known to have history of vitamin B12 deficiency. Recent erythropoietin level was 9.1. On chronic iron and B12 replacement orally Status: Chronic Qualifiers: Iron deficiency anemia type: unspecified iron deficiency Qualified Code(s): D50.9 - Iron deficiency anemia, unspecified (9) Diabetic ulcer of right foot: Betadine paint to right foot and heel, open to air in bed and covered when up Had been going to wound care clinic until 01/2021 Status: Chronic Qualifiers: Diabetic foot ulcer location: heel Diabetes mellitus type: due to underlying condition Non-pressure ulcer stage: limited to breakdown of skin Qualified Code(s): E08.621 - Diabetes mellitus due to underlying condition with foot ulcer; L97.411 - Non-pressure chronic ulcer of right heel and midfoot limited to breakdown of skin (10) Peripheral vascular disease: With extensive stasis changes including some desquamating erythematous skin, has compression dressings Status: Chronic (11) Degenerative lumbar spinal stenosis: With chronic back pain, history of L5 vertebral fracture Status: Acute (12) Morbid obesity: Status: Chronic Plan Abnormal urinalysis Bilateral infiltrates on chest x-ray, my clinical impression is pulmonary edema but cannot rule out consolidation from infectious process Depression Vitamin D deficiency Inpatient admission IV diuresis Currently patient denying Fox catheter for monitoring of urine output, able to make urine and utilize urinal Bladder scan to evaluate for urinary retention as a potential cause of worsening Nephrology consultation, have discussed with them Received empiric treatment for hyperkalemia in the emergency room We will recheck potassium level Continue home aspirin, Plavix, isosorbide Check troponin and EKG, BNP Sliding scale insulin and a decreased dose of Lantus presently Continue home Casodex and Flomax Check IBC and B12, increase iron replacement, continue B12 orally Continue home Cymbalta Continue Betadine paint to right foot Levaquin and vancomycin empirically for now Check procalcitonin Follow-up pending blood cultures Pain control Turn regularly Chronically on PPI Subcu heparin for DVT prophylaxis, monitoring for any signs of bleeding Supportive care otherwise Anticipate disposition back to [facility] once medically stable Findings, concerns and plans were discussed with patient and he was given an opportunity to ask questions Full code as per patient's wishes and discussion with him Attestations Medical Necessity Statement*: Anticipated stay greater than 2 midnights in patient presenting with progressively worsening renal failure currently with hyperkalemia and clinical evidence of significant total body volume overload, bilateral infiltrates on imaging and other issues as noted above. Presently requiring IV diuresis, IV antibiotics, nephrology consultation, close monitoring of urine output and electrolytes/other labs. High risk for rapid clinical decline up to and including possibility of without intervention. Coding Level of Care Code Acute Director Oncology for Chg Fwd Diagnoses Acute renal failure N17.0 Acute renal failure type: with acute tubular necrosis CHF (congestive heart failure) I50.43 Heart failure type: combined systolic and diastolic Heart failure chronicity: acute on chronic Coronary disease I25.10 Coronary Disease-Associated Artery/Lesion type: [place] artery [place] vs. transplanted heart: [place] heart Associated angina: without angina Insulin dependent diabetes mellitus E11.9; Z79.4 Hypertension I10 Hypertension type: primary hypertension Morbid obesity E66.01 Degenerative lumbar spinal stenosis M48.061 Neuroendocrine tumor D3A.8 Iron deficiency anemia D50.9 Iron deficiency anemia type: unspecified iron deficiency Prostate cancer C61 Peripheral vascular disease I73.9 Diabetic ulcer of right foot E08.621; L97.411 Diabetic foot ulcer location: heel Diabetes mellitus type: due to underlying condition Non-pressure ulcer stage: limited to breakdown of skin
[2021-03-21 21:17] LABS: Glucose Point of Care 174 mg/dL (70-110)
[2021-03-21 21:22] LABS: Troponin T (5th) Once 104 ng/L (0-15)
[2021-03-21 21:25] LABS: Anion Gap 21.6 (5-19); Blood Urea Nitrogen 72 mg/dL (8-23); Calcium 6.6 mg/dL (8.5-10.5); Carbon Dioxide 18 mmol/L (22-29); Chloride 101 mmol/L (98-107); Glucose 149 mg/dL (65-115); Magnesium 1.2 mg/dL (1.7-2.3); Osmolality Calculated 302 mOsm/kg (285-295); Sodium 134 mmol/L (136-145); Uric Acid 8.3 mg/dL (3.4-7.0)
[2021-03-21 21:26] LABS: Phosphorus 8.8 mg/dL (2.5-4.5); Potassium 6.6 mmol/L (3.5-5.1)
[2021-03-21] MEDS: bumetanide 0.25 mg/mL SDV 10 mL 2 MG IVP (22:55)
[2021-03-21] MEDS: heparin 5,000 unit/mL INJ 1 mL 5000 UNIT SUBCUT (22:56)
[2021-03-21] MEDS: duloxetine 20 mg Capsule PO (22:56)
[2021-03-21] MEDS: gabapentin 100 mg Capsule PO (22:57)
[2021-03-21] MEDS: insulin regular-human 10 UNIT in SYRINGE 1 EACH IVP (22:57)
[2021-03-21] MEDS: tamsulosin 0.4 mg Capsule PO (22:57)
[2021-03-21] MEDS: dextrose 50% syringe 50 mL IVP (22:58)
[2021-03-21] MEDS: vancomycin 1,000 MG in sodium chloride 0.9% 250 ML 250 MG IV (22:59)
[2021-03-22] VITALS (8 sets, daily range): BP systolic 114–147; BP diastolic 69–80; PULSE 84–91; RESP 16–91; TEMP 36.7–37.1; O2SAT 90–95
[2021-03-22 02:18] LABS: Glucose Point of Care 110 mg/dL (70-110)
--- NOTE | 2021-03-22 04:32 | PC.NURSE ---
2129 Dr Lema notified of critial labs. He advises to call printed circuit designer salesforce consultant.
--- NOTE | 2021-03-22 04:34 | PC.NURSE ---
2134 Left message for segment producer Dr. Dawson regarding pt labs.
--- NOTE | 2021-03-22 04:35 | PC.NURSE ---
[id number] Dr. Dawson returns call. Labs reported to him. Note new orders.
[2021-03-22 05:25] LABS: Basophils % 0.8 %; Eosinophils # 0.1 10^3/uL (0.0-0.8); Eosinophils % 2.4 %; Hematocrit 28.6 % (42.0-52.0); Hemoglobin 8.2 g/dL (11.7-16.6); Lymphocytes # 0.6 10^3/uL (0.8-4.8); Lymphocytes % 12.2 %; Mean Corpuscular HGB Conc 28.7 g/dL (30.0-36.0); Mean Corpuscular Hemoglobin 28.7 pg (28.0-34.0); Monocytes # 0.5 10^3/uL (0.2-0.9); Monocytes % 10.6 %; Neutrophils # 3.57 10^3/uL (1.8-7.7); Nucleated Red Blood Cells % 0.4 %; Platelet Count 132 10^3/cmm (130-400); Red Blood Count 2.86 10^6/uL (4.1-5.3); Red Cell Distribution Width 15.8 % (12.1-15.1); White Blood Count 4.9 10^3/uL (4.0-10.0)
[2021-03-22 05:54] LABS: Troponin T (5th) Once 110 ng/L (0-15)
[2021-03-22 06:08] LABS: Procalcitonin 0.17 ng/mL (0-0.5); Vitamin B12 902 pg/mL (232-1245)
[2021-03-22 06:19] LABS: Alanine Aminotransferase < 5 U/L (0-41); Albumin Level 3.6 g/dL (3.5-5.2); Alkaline Phosphatase 73 IU/L (40-130); Anion Gap 20.2 (5-19); Aspartate Amino Transferase 9 U/L (0-40); Blood Urea Nitrogen 70 mg/dL (8-23); Calcium 6.7 mg/dL (8.5-10.5); Carbon Dioxide 19 mmol/L (22-29); Chloride 105 mmol/L (98-107); Globulin 3.2 g/dL (1.3-4.6); Glucose 108 mg/dL (65-115); Iron 46 ug/dL (59-158); Magnesium 1.3 mg/dL (1.7-2.3); Osmolality Calculated 307 mOsm/kg (285-295); Potassium 6.2 mmol/L (3.5-5.1); Sodium 138 mmol/L (136-145); Total Bilirubin 0.3 mg/dL (0.15-1.2); Total Iron Binding Capacity 153 mcg/dl; Total Protein 6.8 g/dL (6.6-8.7); Unsaturated Iron Binding 107 ug/dL (112-347)
[2021-03-22 06:20] LABS: Phosphorus 9.2 mg/dL (2.5-4.5)
[2021-03-22] MEDS: heparin 5,000 unit/mL INJ 1 mL 5000 UNIT SUBCUT ×2 (06:38→18:18)
[2021-03-22] MEDS: bumetanide 0.25 mg/mL SDV 10 mL 2 MG IVP ×2 (06:38→18:18)
[2021-03-22] MEDS: insulin glargine 100 units/1 mL 15 UNIT SUBCUT (06:39)
[2021-03-22 06:44] LABS: Glucose Point of Care 125 mg/dL (70-110)
[2021-03-22] MEDS: insulin regular-human 5 UNIT in SYRINGE 1 EACH IVP (07:55)
[2021-03-22] MEDS: docusate sodium 100 mg Capsule PO ×2 (07:59→18:19)
[2021-03-22] MEDS: cholecalciferol (vitamin D3) 1,000 unit Tablet 1000 UNIT PO (07:59)
[2021-03-22] MEDS: clopidogrel 75 mg Tablet PO (07:59)
[2021-03-22] MEDS: aspirin 81 mg EC Tablet PO (07:59)
[2021-03-22] MEDS: pantoprazole DR 40 mg Tablet PO (07:59)
[2021-03-22] MEDS: ferrous sulfate EC 325 mg Tablet PO ×2 (08:00→18:19)
[2021-03-22] MEDS: cyanocobalamin 1,000 mcg/mL SDV 1000 MCG IM (08:00)
[2021-03-22] MEDS: isosorbide mononitrate ER 30 mg Tablet 90 MG PO (08:00)
[2021-03-22] MEDS: fluticasone nasal spray 16gm Btl 2 SPRAY INTRANASAL (08:01)
--- NOTE | 2021-03-22 09:15 | USCV_ITS ---
JulietMarco Antonio singer Age: 81 Gender: M : 1940 Exam Date: 03/22/2021 10:04 Ordering Phys: Marco Antonio Dawson MD Technologist: Exam Location: [facility] [place] Indication: CHF BP: 137 / 78 HR: 43 Rhythm: Sinus Technical Quality: Adequate MEASUREMENTS (Male / Female) Normal Values 2D ECHO LV Diastolic Diameter PLAX 5.3 cm 4.2 - 5.9 / 3.9 - 5.3 cm LV Systolic Diameter PLAX 4.5 cm IVS Diastolic Thickness 1.4 cm 0.6 - 1.0 / 0.6 - 0.9 cm IVS Systolic Thickness 1.5 cm LVPW Diastolic Thickness 1.4 cm 0.6 - 1.0 / 0.6 - 0.9 cm LVPW Systolic Thickness 1.5 cm LVOT Diameter 2.0 cm LV Ejection Fraction 2D Teich 19.1 % LV Ejection Fraction MOD 2C 38.4 % LV Ejection Fraction 2C AL 39.4 % LA Diameter 4.3 cm Aorta at Sinotubular Diameter 3.2 cm M-MODE Aortic Annulus Diameter 3.1 cm LA Ao Ratio MM 1.5 MV E Point Septal Separation 2.4 cm DOPPLER AV Peak Velocity 204.0 cm/s LVOT Peak Velocity 82.0 cm/s AV Area Cont Eq vti 1.5 cm squared AV Area Cont Eq pk 1.3 cm squared MV Area PHT 3.7 cm squared Mitral E to A Ratio 1.5 MV E' Velocity 81.0 cm/s TR Peak Velocity 200.3 cm/s TR Peak Gradient 16.1 mmHg TV Peak E Velocity 90.0 cm/s Right Atrial Pressure 3.0 mmHg Pulmonary Artery Systolic Pressu 19.1 mmHg PV Peak Velocity 67.0 cm/s RV Acceleration Time 0.1 s FINDINGS Left Ventricle Normal left ventricular cavity size. Moderately reduced left ventricle ejection fraction 45 to 50%. Due to poor quality study cannot assess wall motion abnormality. Advise repeating study with contrast to assess ejection fraction accurately.Grade II/IV diastolic dysfunction, moderately elevated filling pressures. Right Ventricle The right ventricle is normal in size and function. Right Atrium The right atrium is normal in size. Left Atrium The left atrium is normal in size. Mitral Valve Severely thickened mitral valve. Severe mitral annular calcification. No mitral valve stenosis. Mild-moderate mitral valve regurgitation. Aortic Valve Moderate aortic valve calcification. Mild aortic valve stenosis, mean gradient 9.6 mmHg, SWAPNA 1.5 cm squared. Trace aortic valve regurgitation. Tricuspid Valve Moderate tricuspid valve regurgitation. Pulmonic Valve Pulmonic valve not well visualized. Pericardium Normal pericardium without effusion. Aorta Normal ascending aorta dimension. CONCLUSIONS 1-Normal left ventricular cavity size. Moderately reduced left ventricle ejection fraction 45 to 50%. Due to poor quality study cannot assess wall motion abnormality. Advise repeating study with contrast to assess ejection fraction accurately.Grade II/IV diastolic dysfunction, moderately elevated filling pressures. 2-Moderate aortic valve calcification. Mild aortic valve stenosis, mean gradient 9.6 mmHg, SWAPNA 1.5 cm squared. Trace aortic valve regurgitation. 3-Severely thickened mitral valve. Severe mitral annular calcification. No mitral valve stenosis. Mild-moderate mitral valve regurgitation. 4-Moderate tricuspid valve regurgitation. 5-There is no pericardial effusion. 6-No significant change since the prior echocardiogram study of 07/06/2020.. Mehnaz Grover MD (Electronically Signed) Final Date: 22 March 2021 19:41 S
--- NOTE | 2021-03-22 09:15 | US_ITS ---
WS: [id number] RENAL ULTRASOUND HISTORY: renal failure COMPARISON: 10/20/2019 TECHNIQUE: 2-D and color Doppler imaging of the kidney submitted. Right kidney: 11.3 cm x 6.5 cm x 6.7 cm. Normal size kidney. Cyst in the mid kidney measures 3.7 x 3.6 x 4.4 cm. There is good through transmi ssion. No hydronephrosis or solid mass. Left kidney: No LEFT kidney identified. Kidney is difficult to visualize by body habitus. Aorta: Not visualized. Urinary Bladder: Nondistended. Fox catheter in place. US/US renal BI* [id number] IMPRESSION: 1. LEFT kidney is not identified probably due to body habitus. No history of p rior nephrectomy. 2. Normal size RIGHT kidney with a stable RIGHT renal cyst.
[2021-03-22 09:26] LABS: Anion Gap 22.1 (5-19); Blood Urea Nitrogen 69 mg/dL (8-23); Calcium 6.8 mg/dL (8.5-10.5); Carbon Dioxide 18 mmol/L (22-29); Chloride 105 mmol/L (98-107); Glucose 127 mg/dL (65-115); Osmolality Calculated 310 mOsm/kg (285-295); Potassium 6.1 mmol/L (3.5-5.1); Sodium 139 mmol/L (136-145)
--- NOTE | 2021-03-22 10:27 | PC.CHAP ---
Pastoral Care Encounter/Spiritual Assessment Type of Contact [] Declined art dealer visit [] Patient/Family/Request visit [] Outpatient visit [] Follow-up visit [] Physician referral [] Code/Alert [x] Routine visit [] Staff referral [] Actively dying [] Patient sleeping [] Family support [] [] Out of room [] Palliative care [] [] Receiving care in room [] Pre-surgical visit [] Trauma [] Long length of stay [] ICU visit [x] Other: unable to to communicate his feelings Relational/Emotional Strength [] Patient feels connected with others/family/visitors/staff [] Distress [] Loneliness/isolation [] Abandonment Spirituality of Patient [] Person of Maribel [] Attends Yazidism of their Maribel [] Believes in Prayer [] Reads Bible or Buddhism materials [] There are Spiritual issues to be addressed Video Producer Interventions [] Prayer [] Active listening [] Non-anxious presence [] Spiritual/emotional support [] Crisis/trauma care [] Spiritual counseling [] Bereavement support [] Provided bereavement packet [] Provided Bible/devotional materials [] Provided toy/stuffed animal, coloring book to patient or family member [] Provided Communion [] Anointing/[place] [] Salvation [] Completed spiritual assessment [] Other: Impact on Illness or Injury [] Angry [] Fearful [] Anxious [] Often cries [] Exhaustion [] Unable to work [] Unable to attend pentecostalism [] Unable to walk/stand [] Unable to read [] Unable to drive [] Unable to eat/drink [] Unable to sleep [] Unable to be with family [] Patient intubated [] Other: Summary unable to to communicate his feelings Time spent with patient 5 mins
[2021-03-22 10:32] LABS: Creatine Phosphokinase 91 U/L (39-308); Thyroid Stimulating Hormone 3.09 uIU/mL (0.27-4.20); Uric Acid 8.2 mg/dL (3.4-7.0)
[2021-03-22] MEDS: metOLazone 5 MG Tablet 10 MG PO (11:05)
[2021-03-22] MEDS: nystatin powder 15 gm Btl 1 APPLIC TOPICAL (11:05)
[2021-03-22] MEDS: calcium gluconate 0.9% NaCL 1 GM/50 ML PREMIX IV ×2 (11:06→11:58)
[2021-03-22] MEDS: magnesium sulfate premix 2 GM/50 ML PIGGYBACK IV (11:06)
[2021-03-22] MEDS: levofloxacin-dextrose 5% 250 MG/50 ML PREMIX 50 MG IV (11:53)
--- NOTE | 2021-03-22 12:11 | PM.CONSULT ---
Providers/Reason For Consult Consulting Physician/Specialty*: Nephro Reason for Consult*: EFREN Attending Physician: Rolly Dubose MD Primary Care Provider: Umer Benavidez MD History of Present Illness History of Present Illness Thank you for consultation, today had the pleasure of reviewing this 81-year-old gentleman for evaluation of acute kidney failure and hyperkalemia. He presented yesterday in the evening, with abnormal labs were identified in the care home facility where he resides. His only complaint is of lower extremity swelling and also lower back pain. He takes Tylenol for this, denies anti-inflammatory medication use. On arrival he was noted to have an creatinine of 5.7, uptrending to 6.1 now. In February was 4.9, last year in the 2-3 range. Potassium was also elevated at 6.4 increasing to 6.6, however after some temporizing therapy has come down to 6.1. Some difficulty placing a Fox catheter, and after multiple attempts it was successfully placed with now bloody urine, at least 1000 mL of urine came out a few hours afterwards, 300 mL so far this morning. Kidney ultrasound scan demonstrates a normal right kidney with no evidence of hydronephrosis with some cysts, no left kidney was identified. Clinical symptoms of hypervolemia, extremity edema is noted, chest x-ray with cardiomegaly, bilateral lobe lower lobe infiltrates, advanced chronic emphysematous changes. Echo in June of last year demonstrated ejection fraction 45-50% with global hypokinesis with poor visualization of the right side. Hemodynamics look stable, last blood pressure 137/78. Review of Systems General: Reports: ROS unobtainable due to mental status Medications/Allergies Home Medications Medication Instructions Recorded Confirmed Last Taken Type nitroglycerin 0.4 mg sublingual 0.4 mg SUBLINGUAL Q5M PRN 03/16/19 03/21/21 Unknown History tablet torsemide 20 mg tablet 20 mg PO DAILY@03/16/19 03/21/21 03/21/21 History albuterol sulfate 90 mcg/actuation 1 puff INHALATION QID PRN 03/17/19 03/21/21 Unknown History aerosol inhaler bicalutamide 50 mg tablet 50 mg PO DAILY@03/17/19 03/21/21 03/21/21 History clopidogrel 75 mg tablet 75 mg PO DAILY@03/17/19 03/21/2103/21/22 History duloxetine 20 mg capsule,delayed 20 mg PO BEDTIME@03/17/19 03/21/21 03/20/21 History release gabapentin 100 mg capsule 100 mg PO BEDTIME@03/17/19 03/21/21 03/20/21 History insulin aspart U-100 100 unit/mL 5 unit SUBCUT TID@07,11,17 #0 03/17/19 03/21/21 Unknown History (3 mL) subcutaneous pen (Novolog Flexpen U-100 Insulin aspart) acetaminophen 300 mg-codeine 30 mg 1 tab PO Q6H PRN 07/05/20 03/21/21 Unknown History tablet isosorbide mononitrate 60 mg 90 mg PO DAILY@08 tab 07/21/20 03/21/21 03/21/21 History tablet,extended release 24 hr pantoprazole 40 mg tablet,delayed 40 mg PO DAILY@11/10/20 03/21/21 03/21/21 History release tamsulosin 0.4 mg capsule (Flomax) 0.4 mg PO BEDTIME@11/10/20 03/21/21 03/20/21 History ondansetron 4 mg disintegrating 4 mg PO Q8H PRN #10 tab 11/30/20 03/21/21 Unknown Rx tablet aspirin 81 mg tablet,delayed 81 mg PO DAILY@03/21/21 03/21/21 03/21/21 History release (Adult Low Dose Aspirin) calcium 200 mg PO DAILY@03/21/21 03/21/21 03/21/21 History cholecalciferol (vitamin D3) 25 25 mcg PO DAILY@03/21/21 03/21/21 03/21/21 History mcg (1,000 unit) tablet (Vitamin D3) cyanocobalamin (vitamin B-12) 5,000 mcg SUBLINGUAL DAILY@03/21/21 03/21/21 03/21/21 History 5,000 mcg sublingual tablet (Vitamin B-12) ergocalciferol (vitamin D2) 1,250 50,000 unit PO Q7D 03/21/21 03/21/21 Unknown History mcg (50,000 unit) capsule ferrous sulfate 325 mg (65 mg 325 mg PO DAILY@03/21/21 03/21/21 03/21/21 History iron) tablet fluticasone propionate 50 2 spray INTRANASAL DAILY@08 03/21/21 03/21/21 03/21/21 History mcg/actuation nasal spray,suspension (Flonase Allergy Relief) insulin glargine 100 unit/mL (3 30 unit SUBCUT BID@08,20 03/21/21 03/21/21 Unknown History mL) subcutaneous pen (Lantus Solostar U-100 Insulin) Allergies Allergy/AdvReac Type Severity Reaction Status Date / Time Iodinated Contrast Media Allergy Mild ALGY-Hives Verified 03/21/21 10:50 lisinopril Allergy Unknown Verified 03/21/21 12:24 rosuvastatin [From Crestor] Allergy Unknown Verified 03/21/21 12:24 Current Medications Generic Name Dose Route Start Last Admin Trade Name Freq PRN Reason Stop Dose Admin Aspirin 81 mg 03/22/21 08:00 03/22/21 07:59 Aspirin 81 Mg Ec Tablet PO 81 mg DAILY@08 TRINIDAD Administration Bicalutamide 50 mg 03/22/21 08:00 03/22/21 11:53 Bicalutamide 50 Mg Tablet PO 50 mg DAILY@08 [facility] Administration Bumetanide 2 mg 03/21/21 18:45 03/22/21 06:38 Bumetanide 0.25 Mg/Ml Sdv 10 Ml IVP 2 mg Q12H [facility] Administration Clopidogrel Bisulfate 75 mg 03/22/21 08:00 03/22/21 07:59 Clopidogrel 75 Mg Tablet PO 75 mg DAILY@08 [facility] Administration Cyanocobalamin 1,000 mcg 03/22/21 09:00 03/22/21 08:00 Cyanocobalamin 1,000 Mcg/Ml Sdv IM 1,000 mcg DAILY [facility] Administration Docusate Sodium 100 mg 03/22/21 09:00 03/22/21 07:59 Docusate Sodium 100 Mg Capsule PO 100 mg BID [facility] Administration Duloxetine HCl 20 mg 03/21/21 20:00 03/21/21 22:56 Duloxetine 20 Mg Capsule PO 20 mg BEDTIME@20 [facility] Administration Ferrous Sulfate 325 mg 03/22/21 08:00 03/22/21 08:00 Ferrous Sulfate Ec 325 Mg Tablet PO 325 mg BIDWM [facility] Administration Fluticasone Propionate 2 spray 03/22/21 08:00 03/22/21 08:01 Fluticasone Nasal Boody 16gm Btl INTRANASAL 2 spray DAILY@08 [facility] Administration Gabapentin 100 mg 03/21/21 20:00 03/21/21 22:57 Gabapentin 100 Mg Capsule PO 100 mg BEDTIME@20 [facility] Administration Heparin Sodium (Porcine) 5,000 unit 03/21/21 18:30 03/22/21 06:38 Heparin 5,000 Unit/Ml Inj 1 Ml SUBCUT 5,000 unit Q12H [facility] Administration Levofloxacin/Dextrose 250 mg in 50 mls @ 50 mls/hr 03/22/21 09:00 03/22/21 11:53 Levaquin-D5w IV 50 mls/hr Q48H [facility] Administration Protocol Vancomycin HCl 1,000 mg/ 250 mls @ 250 mls/hr 03/21/21 20:00 03/22/21 11:26 Sodium Chloride IV Infused Q48H [facility] Infusion calcium gluconate 0.9% NaCL 1 gm in 50 mls @ 100 mls/hr 03/22/21 09:30 03/22/21 11:58 Calcium Gluconate 0.9% Nacl IV 03/23/21 09:59 100 mls/hr Q30MIN [facility] Administration Insulin Glargine 15 unit 03/22/21 06:00 03/22/21 06:39 Insulin Glargine 100 Units/1 Ml SUBCUT 15 unit BID@18 [facility] Administration Insulin Human Lispro 0 unit 03/21/21 21:00 03/22/21 00:44 Insulin Lispro 100 Unit/1 Ml SUBCUT Not Given BEDTIME [facility] Protocol Insulin Human Lispro 0 unit 03/22/21 08:00 03/22/21 11:04 Insulin Lispro 100 Unit/1 Ml SUBCUT Not Given TIDWM [facility] Protocol Isosorbide Mononitrate 90 mg 03/22/21 08:00 03/22/21 08:00 Isosorbide Mononitrate Er 30 Mg Tablet PO 90 mg DAILY@08 [facility] Administration Nystatin 1 applic 03/22/21 09:00 03/22/21 11:05 Nystatin Powder 15 Gm Btl TOPICAL 1 applic BID [facility] Administration Pantoprazole Sodium 40 mg 03/22/21 09:00 03/22/21 07:[address] 40 Mg Tablet PO 40 mg DAILY [facility] Administration Tamsulosin HCl 0.4 mg 03/21/21 20:00 03/21/21 22:57 Tamsulosin 0.4 Mg Capsule PO 0.4 mg BEDTIME@20 [facility] Administration Vitamin D 1,000 unit 03/22/21 08:00 03/22/21 07:59 Cholecalciferol (Vitamin D3) 1,000 Unit Tablet PO 1,000 unit DAILY@08 [facility] Administration PFSH Acute PFSH: Medical History (Updated 03/21/21 @ 19:52 by Rosa Johnson MD) Aortic stenosis B12 deficiency Chronic kidney disease Closed fracture of lumbar vertebral body (~11/2020) L5 COPD (chronic obstructive pulmonary disease) Coronary disease COVID-19 vaccine administered moderna, full + booster Degenerative disc disease Dyslipidemia GERD (gastroesophageal reflux disease) History of echocardiogram EF 45-50% 06/2020 Hypertension Iron deficiency anemia Morbid obesity Neuroendocrine tumor Stage IV, low-grade, around the head of the pancreas/duodenum, with lymph node prominence, treated with sandostatin, follows with Dr Allen, not a surgical candidate Osteoarthritis Peripheral vascular disease including carotid disease Prostate cancer Renal mass bilateral, indeterminant Sleep apnea Systolic and diastolic CHF, chronic Type 2 diabetes mellitus Venous stasis Shila-Hernandez syndrome diagnosed in Surgical History (Updated 03/21/21 @ 18:32 by Rosa Johnson MD) H/O prostatectomy History of coronary artery stent placement History of orchiectomy Family History (Updated 03/21/21 @ 19:48 by Rosa Johnson MD) Other Chronic kidney disease (CKD) Diabetes Hyperlipidemia Hypertension Denies family history of Cancer Social History (Updated 03/21/21 @ 18:58 by Rosa Johnson MD) Smoking and tobacco status: never smoked Alcohol intake: never Substance/Drug Use: never Caregiver/support person: Yes (daughter) Housing: Retirement Vitals/I&O/Wt Last Vital Signs Temp 98.7 F 03/22/21 07:25 Pulse 90 03/22/21 08:09 Resp 18 03/22/21 07:25 BP 137/78 03/22/21 07:25 Pulse Ox 95 03/22/21 08:09 03/21/21 03/22/21 03/22/21 22:59 06:59 14:59 Intake Total 640.15 / 640.15 Output Total 950 / 950 Balance -950 / -950 640.15 / 640.15 Weight last 48 hrs Weight 166.287 kg Weight 163.293 kg Physical Exam Narrative: Constitutional: Awake, comfortable HEENT: Wet mucosa, no jvp, non icteric Lungs: Bilaterally diminished and coarse rales CVS: S1 S2, no murmurs Abdo: Soft, BS ok Ext 4: 2-3+ edema, peripheral perfusion with no cyanosis Neurological: Grossly non-focal Urinary Catheter Management: Fox: Cath Placed During This Visit: yes Reason for Continuing Indwelling Catheter: Acute Urinary Retention or Obstruction Urinary Catheter Date of Insertion: 03/21/21 Urinary Catheter Time of Insertion: 22:45 Data : 03/22/21 04:57 03/22/21 08:55 Micro: Microbiology 03/21/21 12:10 Blood Culture - Preliminary Blood SPECIMEN COLLECTED 03/21/21 12:10 Blood Culture - Preliminary Blood SPECIMEN COLLECTED A&P Assessment and plan (1) Acute renal failure: Status: Acute Qualifiers: Acute renal failure type: with acute tubular necrosis Qualified Code(s): N17.0 - Acute kidney failure with tubular necrosis Plan 1. Acute on chronic kidney disease Differential does include obstructive uropathy, cardiorenal syndrome. Acute glomerulonephritis is not excluded but unlikely. Continue diuretics Fox catheter now successfully placed, daily bladder scan to ensure Fox patency given hematuria. No IV fluids. Given the recalcitrant hyperkalemia, we should consider hemodialysis, this is being discussed with family members. Remaining work-up to include fractional excretion of sodium/urea. Strict I's and O's Avoid usual nephrotoxic agents 2. Hyperkalemia So far temporizing therapy ineffective, continue Bumex, will continue Kayexalate every 6 hours until potassium comes down. Acidosis also noted, all secondary to kidney failure Dialysis being entertained, discussions with family members ongoing. 3. Low back pain, Analgesics per primary team, Dr. Dubose, may consider imaging, given history of prostate cancer. We will check PSA as well. Marco Antonio Dawson MD Nephrology [phone] Patient seen and examined via telemedicine, with the assistance of the bedside RN > 25 min spent in evaluation and mgmt of patient Consult Attestations Medical Necessity Statement: Eval for EFREN/hyperK Coding Level of Care Code Acute Stiff Leg Operator for Chg Fwd Diagnoses Acute renal failure N17.0 Acute renal failure type: with acute tubular necrosis
--- NOTE | 2021-03-22 12:27 | P.PN_ITS ---
Subjective Subjective: History and physical was reviewed. Patient reports he feels horrible, and swollen. Would like a small drink of water. No chest discomfort. Medications: Reviewed: Yes Vitals/I&O/Wt Last Vital Signs Temp 98.0 F 03/22/21 12:00 Pulse 87 03/22/21 12:00 Resp 18 03/22/21 12:00 BP 147/77 03/22/21 12:00 Pulse Ox 90 03/22/21 12:00 03/21/21 03/22/21 03/22/21 22:59 06:59 14:59 Intake Total 640.15 / 640.15 Output Total 950 / 950 Balance -950 / -950 640.15 / 640.15 Weight last 48 hrs Weight 166.287 kg Weight 163.293 kg Physical Exam Narrative: Anasarca General exam: Obvious anasarca. Neck is supple Cardiovascular regular rate rhythm, heart sounds distant Lungs diminished breath sounds at the bases Abdomen is obese, abdominal wall edema noted Extremities 4+ edema no cyanosis or clubbing. Urinary Catheter Management: Fox: Cath Placed During This Visit: yes Reason for Continuing Indwelling Catheter: Acute Urinary Retention or Obstruction Urinary Catheter Date of Insertion: 03/21/21 Urinary Catheter Time of Insertion: 22:45 Data : 03/22/21 04:57 03/22/21 08:55 Micro: Microbiology 03/21/21 12:10 Blood Culture - Preliminary Blood NEGATIVE TO DATE 03/21/21 12:10 Blood Culture - Preliminary Blood NEGATIVE TO DATE A&P Assessment and plan (1) Acute renal failure: Severe acute kidney injury, superimposed on chronic renal failure. Markedly hyperkalemic Appreciate nephrology consultation Kayexalate 15 g p.o. now Discussed situation with family. They want to continue to try to medically treat for the next 6 to 8 hours. Daughter is going to come in and talk to her father regarding the potential for dialysis, continue medical treatment, or comfort measures. I have tried to talk to the patient regarding this as well, but I am not confident that he understands implications. Daughter is aware that with continued medical treatment this is riskier than doing dialysis emergently and and/or disability could occur. May have some component of acute urinary retention. Fox has been placed. Avoid renal toxic medication. Status: Acute Qualifiers: Acute renal failure type: with acute tubular necrosis Qualified Code(s): N17.0 - Acute kidney failure with tubular necrosis (2) CHF (congestive heart failure): Combined systolic and diastolic, EF 45 to 50% on last echocardiogram Chronically on torsemid, no noted recent dosage changes Chest x-ray with bilateral small effusions Continue Bumex 2 mg IV every 12 hours Zaroxolyn dose ordered by nephrology this morning, 10 mg once Oxygen as needed Echocardiogram is ordered, taken, and interpretation pending. Status: Acute Qualifiers: Heart failure type: combined systolic and diastolic Heart failure chronicity: acute on chronic Qualified Code(s): I50.43 - Acute on chronic combined systolic (congestive) and diastolic (congestive) heart failure (3) Coronary disease: With intermittent chest pain that is somewhat atypical Chronically on aspirin, Plavix, isosorbide. We will continue Metoprolol was stopped sometime in the last few months due to hypotension Troponin elevated, but no significant delta. Status: Chronic Qualifiers: Associated angina: without angina Coronary Disease-Associated Artery/Lesion type: [place] artery [place] vs. transplanted heart: [place] heart Qualified Code(s): I25.10 - Atherosclerotic heart disease of [place] coronary artery without angina pectoris (4) Insulin dependent diabetes mellitus: Recent hemoglobin A1c 7.5, has associated peripheral neuropathy Chronically on twice daily Lantus and 3 times daily NovoLog Reduce Lantus slightly secondary to acute kidney injury Takes gabapentin for neuropathy Status: Acute (5) Hypertension: Currently controlled Status: Chronic Qualifiers: Hypertension type: primary hypertension Qualified Code(s): I10 - Essential (primary) hypertension (6) Neuroendocrine tumor: Stage IV, 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 Has been treated with regular Sandostatin and follows with Dr. Allen. Also noted has been bilateral renal masses that were indeterminate. Status: Chronic (7) Prostate cancer: Chronically on Casodex and Flomax Status: Chronic (8) Iron deficiency anemia: Secondary to chronic kidney disease. Stable currently Status: Chronic Qualifiers: Iron deficiency anemia type: unspecified iron deficiency Qualified Code(s): D50.9 - Iron deficiency anemia, unspecified (9) Diabetic ulcer of right foot: Betadine paint to right foot and heel, open to air in bed and covered when up Had been going to wound care clinic until 01/2021 Status: Chronic Qualifiers: Diabetic foot ulcer location: heel Diabetes mellitus type: due to underlying condition Non-pressure ulcer stage: limited to breakdown of skin Qualified Code(s): E08.621 - Diabetes mellitus due to underlying condition with foot ulcer; L97.411 - Non-pressure chronic ulcer of right heel and midfoot l imited to breakdown of skin (10) Peripheral vascular disease: With extensive stasis changes including some desquamating erythematous skin, has compression dressings Cannot rule out some underlying cellulitis. Placed on vancomycin. Continue currently. Status: Chronic (11) Degenerative lumbar spinal stenosis: With chronic back pain, history of L5 vertebral fracture Status: Acute (12) Morbid obesity: Status: Chronic Plan Possible pneumonia. Continue Levaquin. Continue vancomycin Hypomagnesemia, supplemented by nephrology Full code currently but daughter is going to discuss with father Heparin for DVT prophylaxis Attestations 2 Medical Necessity Statement*: Needs continued hospital stay for diuresis secondary to anasarca, treatment of acute kidney injury Coding Level of Care Code Acute Wastewater Project Engineer for [facility] Fwd Diagnoses Acute renal failure N17.0 Acute renal failure type: with acute tubular necrosis CHF (congestive heart failure) I50.43 Heart failure type: combined systolic and diastolic Heart failure chronicity: acute on chronic Coronary disease I25.10 Associated angina: without angina Coronary Disease-Associated Artery/Lesion type: [place] artery [place] vs. transplanted heart: [place] heart Insulin dependent diabetes mellitus E11.9; Z79.4 Hypertension I10 Hypertension type: primary hypertension Neuroendocrine tumor D3A.8 Prostate cancer C61 Iron deficiency anemia D50.9 Iron deficiency anemia type: unspecified iron deficiency Diabetic ulcer of right foot E08.621; L97.411 Diabetic foot ulcer location: heel Diabetes mellitus type: due to underlying condition Non-pressure ulcer stage: limited to breakdown of skin Peripheral vascular disease I73.9 Degenerative lumbar spinal stenosis M48.061 Morbid obesity E66.01
[2021-03-22 12:51] LABS: Urine Creatinine 89 mg/dL (39-259); Urine Random Sodium 56 mmol/L
[2021-03-22 12:53] LABS: Bilirubin Urine Neg (Negative); Blood Urine 3+ (Negative); Glucose Urine UA Norm (Normal); Ketones Urine 1+ (Negative); Nitrate Urine Negative (Negative); Protein Urine 3+ (Negative); Urine Appearance Cloudy (CLEAR); Urine Color Brown (Yellow); pH Urine 6.5 (5-7)
[2021-03-22 12:54] LABS: Add Urine Culture? Yes; Leukocyte Esterase Urine 1+ (Negative); RBC Urine TOO NUMEROUS TO CNT /hpf (0-2); Squamous Epithelial Cell Urine RARE /hpf (0-5); Urobilinogen Urine Neg (Negative)
[2021-03-22] MEDS: sodium polystyrene sulfonate 15 gm/60 mL Btl PO ×3 (12:59→18:18)
[2021-03-22 13:02] LABS: UPRO/UCREAT Ratio 4.13 mg/mg CR; Urine Protein Random 368 mg/dL
[2021-03-22 13:12] LABS: Anion Gap 22.2 (5-19); Blood Urea Nitrogen 65 mg/dL (8-23); Carbon Dioxide 17 mmol/L (22-29); Chloride 105 mmol/L (98-107); Glucose 103 mg/dL (65-115); Osmolality Calculated 305 mOsm/kg (285-295); Potassium 6.2 mmol/L (3.5-5.1); Sodium 138 mmol/L (136-145)
[2021-03-22 13:15] LABS: Urea Nitrogen,Urine Random 299 mg/dL
[2021-03-22] MEDS: HYDROcodone-acetaminophen 5-325 mg Tablet 1 TAB PO (14:27)
[2021-03-22 19:25] LABS: Anion Gap 21.9 (5-19); Blood Urea Nitrogen 69 mg/dL (8-23); Calcium 6.7 mg/dL (8.5-10.5); Carbon Dioxide 19 mmol/L (22-29); Chloride 105 mmol/L (98-107); Glucose 132 mg/dL (65-115); Osmolality Calculated 312 mOsm/kg (285-295); Potassium 5.9 mmol/L (3.5-5.1); Sodium 140 mmol/L (136-145)
[2021-03-22] MEDS: tamsulosin 0.4 mg Capsule PO (21:41)
[2021-03-22] MEDS: duloxetine 20 mg Capsule PO (21:41)
[2021-03-22] MEDS: gabapentin 100 mg Capsule PO (21:42)
[2021-03-22] MEDS: acetaminophen 325 mg Tablet 650 MG PO (21:43)
[2021-03-22 21:55] LABS: Glucose Point of Care 138 mg/dL (70-110)
[2021-03-22 21:55] LABS: Glucose Point of Care 106 mg/dL (70-110)
[2021-03-22 21:55] LABS: Glucose Point of Care 172 mg/dL (70-110)
[2021-03-23] VITALS (11 sets, daily range): BP systolic 112–138; BP diastolic 65–82; PULSE 79–93; RESP 16–20; TEMP 36.6–36.9; O2SAT 92–96
[2021-03-23] MEDS: sodium polystyrene sulfonate 15 gm/60 mL Btl PO ×5 (00:31→23:18)
[2021-03-23 05:19] LABS: Basophils % 0.5 %; Eosinophils # 0.1 10^3/uL (0.0-0.8); Eosinophils % 1.8 %; Hematocrit 27.3 % (42.0-52.0); Lymphocytes # 0.7 10^3/uL (0.8-4.8); Lymphocytes % 13.4 %; Mean Corpuscular HGB Conc 29.3 g/dL (30.0-36.0); Mean Corpuscular Hemoglobin 29.2 pg (28.0-34.0); Mean Corpuscular Volume 99.6 fl (80-94); Mean Platelet Volume 11.7 fL (7.4-10.4); Monocytes # 0.6 10^3/uL (0.2-0.9); Monocytes % 9.9 %; Neutrophils # 4.08 10^3/uL (1.8-7.7); Neutrophils % 73.9 %; Nucleated Red Blood Cells % 0 %; Platelet Count 137 10^3/cmm (130-400); Red Blood Count 2.74 10^6/uL (4.1-5.3); Red Cell Distribution Width 15.8 % (12.1-15.1); White Blood Count 5.5 10^3/uL (4.0-10.0)
[2021-03-23 05:33] LABS: Alanine Aminotransferase < 5 U/L (0-41); Albumin Level 3.3 g/dL (3.5-5.2); Alkaline Phosphatase 69 IU/L (40-130); Anion Gap 20.6 (5-19); Aspartate Amino Transferase 7 U/L (0-40); Blood Urea Nitrogen 70 mg/dL (8-23); Calcium 6.6 mg/dL (8.5-10.5); Carbon Dioxide 20 mmol/L (22-29); Chloride 105 mmol/L (98-107); Globulin 3.4 g/dL (1.3-4.6); Glucose 133 mg/dL (65-115); Magnesium 1.5 mg/dL (1.7-2.3); Osmolality Calculated 312 mOsm/kg (285-295); Potassium 5.6 mmol/L (3.5-5.1); Sodium 140 mmol/L (136-145); Total Bilirubin 0.2 mg/dL (0.15-1.2); Total Protein 6.7 g/dL (6.6-8.7)
[2021-03-23] MEDS: bumetanide 0.25 mg/mL SDV 10 mL 2 MG IVP ×2 (05:59→18:14)
[2021-03-23] MEDS: heparin 5,000 unit/mL INJ 1 mL 5000 UNIT SUBCUT ×2 (06:00→18:14)
[2021-03-23] MEDS: sodium chloride 0.9% 1,000 ML 75 ML IV (06:13)
[2021-03-23 06:20] LABS: Glucose Point of Care 145 mg/dL (70-110)
[2021-03-23] MEDS: fluticasone nasal spray 16gm Btl 2 SPRAY INTRANASAL (09:56)
[2021-03-23] MEDS: HYDROcodone-acetaminophen 5-325 mg Tablet 1 TAB PO ×3 (09:56→19:39)
[2021-03-23] MEDS: isosorbide mononitrate ER 30 mg Tablet 90 MG PO (09:57)
[2021-03-23] MEDS: pantoprazole DR 40 mg Tablet PO (09:57)
[2021-03-23] MEDS: nystatin powder 15 gm Btl 1 APPLIC TOPICAL (09:57)
[2021-03-23] MEDS: docusate sodium 100 mg Capsule PO ×2 (09:57→18:14)
[2021-03-23] MEDS: cholecalciferol (vitamin D3) 1,000 unit Tablet 1000 UNIT PO (09:57)
[2021-03-23] MEDS: cyanocobalamin 1,000 mcg/mL SDV 1000 MCG IM (09:58)
[2021-03-23] MEDS: aspirin 81 mg EC Tablet PO (09:58)
[2021-03-23] MEDS: ferrous sulfate EC 325 mg Tablet PO ×2 (09:58→18:16)
[2021-03-23] MEDS: clopidogrel 75 mg Tablet PO (09:58)
[2021-03-23] MEDS: magnesium sulfate premix 2 GM/50 ML PIGGYBACK IV (10:00)
--- NOTE | 2021-03-23 10:03 | P.PN_ITS ---
Subjective Subjective: No new issues with Mr. Valadez today. Remains uncomfortable, complaining of sacral discomfort. Remains obviously fluid overloaded. Urine output recorded roughly 1 L. No other new uremic symptoms. Potassium levels now coming down to noncritical range. Medications: Reviewed: Yes Vitals/I&O/Wt Last Vital Signs Temp 97.9 F 03/23/21 07:50 Pulse 86 03/23/21 09:47 Resp 18 03/23/21 09:47 BP 138/82 03/23/21 07:50 Pulse Ox 92 03/23/21 09:47 03/22/21 03/23/21 03/23/21 22:59 06:59 14:59 Intake Total 180 / 970.15 500 / 1470.15 Output Total 550 / 550 500 / 1050 Balance -370 / 420.15 0 / 420.15 Weight last 48 hrs Weight 170.188 kg Weight 166.287 kg Weight 163.293 kg Physical Exam Narrative: Constitutional: Awake, comfortable HEENT: Wet mucosa, no jvp, non icteric Lungs: Bilaterally diminished and coarse rales CVS: S1 S2, no murmurs Abdo: Soft, BS ok Ext 4: 2-3+ edema, peripheral perfusion with no cyanosis Neurological: Grossly non-focal Urinary Catheter Management: Fox: Cath Placed During This Visit: yes Reason for Continuing Indwelling Catheter: Acute Urinary Retention or Obstruction Urinary Catheter Date of Insertion: 03/21/21 Urinary Catheter Time of Insertion: 22:45 Data : 03/23/21 04:48 03/23/21 04:48 Micro: Microbiology 03/21/21 12:10 Blood Culture - Preliminary Blood NEGATIVE TO DATE 03/21/21 12:10 Blood Culture - Preliminary Blood NEGATIVE TO DATE A&P Assessment and plan (1) Acute renal failure: Status: Acute Qualifiers: Acute renal failure type: with acute tubular necrosis Qualified Code(s): N17.0 - Acute kidney failure with tubular necrosis Plan 1. Acute on chronic kidney disease Differential does include obstructive uropathy, cardiorenal syndrome. Acute glomerulonephritis is not excluded but unlikely. Continue diuretics Creatinine remains relatively unchanged since yesterday, potassium now coming down to noncritical range. DC IV fluid, this made the situation worse. Continue twice daily Bumex, will add oral metolazone. Family members still considering hemodialysis, however, less critical now potassium is in a safer range. Strict I's and O's Avoid usual nephrotoxic agents 2. Hyperkalemia Potassium now in a safe range, continue Kayexalate for the time being. Effective diuresis from both loop and thiazide diuretics were also resulted in decrease in potassium over time. 3. Low back pain, Analgesics per primary team, Dr. Dubose, may consider imaging, given history of prostate cancer. We will check PSA as well. Marco Antonio Dawson MD Nephrology [phone] Patient seen and examined via telemedicine, with the assistance of the bedside RN > 25 min spent in evaluation and mgmt of patient Attestations Medical Necessity Statement*: Eval for EFREN Coding Level of Care Code Acute Multiple Wire Sawyer for Chg Fwd Diagnoses Acute renal failure N17.0 Acute renal failure type: with acute tubular necrosis
[2021-03-23] MEDS: metOLazone 5 MG Tablet 10 MG PO (10:08)
[2021-03-23] MEDS: insulin lispro 100 unit/1 mL SUBCUT ×2 (12:44→18:29)
--- NOTE | 2021-03-23 15:18 | PM.PN ---
Subjective Subjective: Marco Antonio reports he is doing okay. No events overnight. Did not diurese quite as well as we would have hoped. He is not objectionable to diuresis if measures with adjustment of medications or not effective. Medications: Reviewed: Yes Vitals/I&O/Wt Last Vital Signs Temp 98.1 F 03/23/21 12:00 Pulse 81 03/23/21 12:00 Resp 18 03/23/21 12:00 BP 122/65 03/23/21 12:00 Pulse Ox 92 03/23/21 12:00 03/23/21 03/23/21 03/23/21 06:59 14:59 22:59 Intake Total 500 / 1470.15 413.75 / 413.75 Output Total 500 / 1050 Balance 0 / 420.15 413.75 / 413.75 Weight last 48 hrs Weight 170.188 kg Weight 166.287 kg Physical Exam Narrative: General exam anasarca unchanged Neck is supple Cardiovascular regular rate rhythm, heart sounds distant Lungs diminished breath sounds at the bases Abdomen is obese, abdominal wall edema noted Extremities 4+ edema no cyanosis or clubbing. Urinary Catheter Management: Fox: Cath Placed During This Visit: yes Reason for Continuing Indwelling Catheter: Acute Urinary Retention or Obstruction Urinary Catheter Date of Insertion: 03/21/21 Urinary Catheter Time of Insertion: 22:45 Data : 03/23/21 04:48 03/23/21 04:48 Micro: Microbiology 03/21/21 12:10 Blood Culture - Preliminary Blood NEGATIVE TO DATE 03/21/21 12:10 Blood Culture - Preliminary Blood NEGATIVE TO DATE A&P Assessment and plan (1) Acute renal failure: Severe acute kidney injury, superimposed on chronic renal failure. Marked hyperkalemia has improved and potassium now 5.6. Appreciate nephrology consultation Nephrology has ordered Kayexalate every 6 hours for now. Some component of acute urinary retention. Fox has been placed. Unfortunately renal function has not improved greatly with this although his output has been acceptable. Avoid renal toxic medication. Patient was much more alert and conversive today. He reported he would want dialysis if it was absolutely needed, but wants to continue to try to treat this with medications at first. He did not seem interested in comfort measures. Unfortunately I could not reach his daughter today by phone. I am not sure what their conversation entailed yesterday. 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 Oxygen as needed Echocardiogram is ordered, taken, and interpretation pending. Status: Acute Qualifiers: Heart failure chronicity: acute on chronic Heart failure type: combined systolic and diastolic Qualified Code(s): I50.43 - Acute on chronic combined systolic (congestive) and diastolic (congestive) heart failure (3) Coronary disease: With intermittent chest pain that is somewhat atypical Chronically on aspirin, Plavix, isosorbide. We will continue Metoprolol was stopped sometime in the last few months due to hypotension Troponin elevated, but no significant delta. Status: Chronic Qualifiers: Associated angina: without angina Coronary Disease-Associated Artery/Lesion type: [place] artery [place] vs. transplanted heart: [place] heart Qualified Code(s): I25.10 - Atherosclerotic heart disease of [place] coronary artery without angina pectoris (4) Insulin dependent diabetes mellitus: Recent hemoglobin A1c 7.5, has associated peripheral neuropathy Chronically on twice daily Lantus and 3 times daily NovoLog Reduce Lantus slightly secondary to acute kidney injury Takes gabapentin for neuropathy Status: Acute (5) Hypertension: Currently controlled Status: Chronic Qualifiers: Hypertension type: primary hypertension Qualified Code(s): I10 - Essential (primary) hypertension (6) Neuroendocrine tumor: Stage IV, 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 Has been treated with regular Sandostatin and follows with Dr. Allen. Also noted has been bilateral renal masses that were indeterminate. Status: Chronic (7) Prostate cancer: Chronically on Casodex and Flomax Status: Chronic (8) Iron deficiency anemia: Secondary to chronic kidney disease. Stable currently Status: Chronic Qualifiers: Iron deficiency anemia type: unspecified iron deficiency Qualified Code(s): D50.9 - Iron deficiency anemia, unspecified (9) Diabetic ulcer of right foot: Betadine paint to right foot and heel, open to air in bed and covered when up Had been going to wound care clinic until 01/2021 Status: Chronic Qualifiers: Diabetes mellitus type: due to underlying condition Diabetic foot ulcer location: heel Non-pressure ulcer stage: limited to breakdown of skin Qualified Code(s): E08.621 - Diabetes mellitus due to underlying condition with foot ulcer; L97.411 - Non-pressure chronic ulcer of right heel and midfoot limited to breakdown of skin (10) Peripheral vascular disease: With extensive stasis changes including some desquamating erythematous skin, has compression dressings Cannot rule out some underlying cellulitis. Placed on vancomycin. Continue currently. Status: Chronic (11) Degenerative lumbar spinal stenosis: With chronic back pain, history of L5 vertebral fracture Status: Acute (12) Morbid obesity: Status: Chronic Plan Possible pneumonia. Continue Levaquin. Continue vancomycin Hypomagnesemia, supplemented again today Full code currently Prognosis guarded Heparin for DVT prophylaxis Attestations Medical Necessity Statement*: Needs continued hospitalization secondary to severe anasarca, renal failure. Coding Level of Care Code Acute Applications Support Specialist for [facility] Fwd Diagnoses Acute renal failure N17.0 Acute renal failure type: with acute tubular necrosis CHF (congestive heart failure) I50.43 Heart failure chronicity: acute on chronic Heart failure type: combined systolic and diastolic Coronary disease I25.10 Associated angina: without angina Coronary Disease-Associated Artery/Lesion type: [place] artery [place] vs. transplanted heart: [place] heart Insulin dependent diabetes mellitus E11.9; Z79.4 Hypertension I10 Hypertension type: primary hypertension Neuroendocrine tumor D3A.8 Prostate cancer C61 Iron deficiency anemia D50.9 Iron deficiency anemia type: unspecified iron deficiency Diabetic ulcer of right foot E08.621; L97.411 Diabetes mellitus type: due to underlying condition Diabetic foot ulcer location: heel Non-pressure ulcer stage: limited to breakdown of skin Peripheral vascular disease I73.9 Degenerative lumbar spinal stenosis M48.061 Morbid obesity E66.01
[2021-03-23 17:23] LABS: PSA Free 0.4 ng/mL; PSA Free Percentage 17 % (calc) (>25); PSA Total 2.4 ng/mL (< OR = 4.0)
[2021-03-23] MEDS: insulin glargine 100 units/1 mL 10 UNIT SUBCUT (18:15)
[2021-03-23] MEDS: tamsulosin 0.4 mg Capsule PO (19:39)
[2021-03-23] MEDS: gabapentin 100 mg Capsule PO (19:39)
[2021-03-23] MEDS: vancomycin 1,000 MG in sodium chloride 0.9% 250 ML 250 MG IV (19:39)
[2021-03-23] MEDS: duloxetine 20 mg Capsule PO (19:53)
--- NOTE | 2021-03-23 19:57 | PC.NURSE ---
Patient turned Q2 and educated on the importance of turning throughout the shift. Patient was given a bath, moore care done. Patient had 50% of breakfast and lunch but did not want dinner. Patient has been uncomfortable in bed, pain medications given when available. Patient vitals stable. Moore is clean and intact, adequate output. Report given to PATRICK Smith.
[2021-03-23 21:06] LABS: Glucose Point of Care 131 mg/dL (70-110)
[2021-03-23 21:30] LABS: Glucose Point of Care 177 mg/dL (70-110)
[2021-03-23 21:30] LABS: Glucose Point of Care 183 mg/dL (70-110)
[2021-03-24] VITALS (8 sets, daily range): BP systolic 113–140; BP diastolic 71–82; PULSE 81–105; RESP 16–20; TEMP 36.4–36.7; O2SAT 91–97
[2021-03-24] MEDS: bumetanide 0.25 mg/mL SDV 10 mL 2 MG IVP ×2 (05:12→18:20)
[2021-03-24] MEDS: sodium polystyrene sulfonate 15 gm/60 mL Btl PO (05:12)
[2021-03-24] MEDS: heparin 5,000 unit/mL INJ 1 mL 5000 UNIT SUBCUT ×2 (05:17→18:20)
--- NOTE | 2021-03-24 06:29 | PM.PN ---
Subjective Subjective: More awake, more alert, more interactive. Urine output much better yesterday 1650 mL in response to Bumex/metolazone combination. Fox catheter remains in place. Still has obvious global edema. No acute uremic symptoms. Using 3 L nasal cannula oxygen and maintaining oxygen levels nicely. Medications: Reviewed: Yes Vitals/I&O/Wt Last Vital Signs Temp 97.6 F 03/24/21 04:00 Pulse 93 03/24/21 05:56 Resp 20 H 03/24/21 04:00 BP 113/82 03/24/21 04:00 Pulse Ox 91 03/24/21 04:00 03/23/21 03/23/21 03/24/21 14:59 22:59 06:59 Intake Total 413.75 / 413.75 250 / 663.75 240 / 903.75 Output Total 1200 / 1200 450 / 1650 Balance 413.75 / 413.75 -950 / -536.25 -210 / -746.25 Weight last 48 hrs Weight 170.188 kg Physical Exam Narrative: Constitutional: Awake, comfortable HEENT: Wet mucosa, no jvp, non icteric Lungs: Bilaterally diminished and coarse rales CVS: S1 S2, no murmurs Abdo: Soft, BS ok Ext 4: 2-3+ edema, peripheral perfusion with no cyanosis Neurological: Grossly non-focal Urinary Catheter Management: Fox: Cath Placed During This Visit: yes Reason for Continuing Indwelling Catheter: Acute Urinary Retention or Obstruction Urinary Catheter Date of Insertion: 03/21/21 Urinary Catheter Time of Insertion: 22:45 Data : 03/23/21 04:48 03/23/21 04:48 Micro: Microbiology 03/22/21 12:00 Urine Culture - Preliminary Urine,Clean Catch A&P Assessment and plan (1) Acute renal failure: Status: Acute Qualifiers: Acute renal failure type: with acute tubular necrosis Qualified Code(s): N17.0 - Acute kidney failure with tubular necrosis Plan 1. Acute on chronic kidney disease Differential does include obstructive uropathy, cardiorenal syndrome. Acute glomerulonephritis is not excluded but unlikely. Labs pending for today. Urine output did increase significantly, continue Bumex/metolazone combination. Hopefully dialysis can be avoided. Strict I's and O's Avoid usual nephrotoxic agents 2. Hyperkalemia With the more robust urine output, I would anticipate potassium levels coming down from the combination of loop and thiazide diuretics. 3. Low back pain, Analgesics per primary team, Dr. Dubose 4. OOB to chair, PT/OT Marco Antonio Dawson MD Nephrology [phone] Patient seen and examined via telemedicine, with the assistance of the bedside RN > 25 min spent in evaluation and mgmt of patient Attestations Medical Necessity Statement*: blanca Coding Level of Care Code Acute Slasher Hand for [facility] Diagnoses Acute renal failure N17.0 Acute renal failure type: with acute tubular necrosis
[2021-03-24 06:54] LABS: Glucose Point of Care 105 mg/dL (70-110)
[2021-03-24 07:25] LABS: Basophils % 0.8 %; Eosinophils # 0.2 10^3/uL (0.0-0.8); Eosinophils % 4.2 %; Hematocrit 28.3 % (42.0-52.0); Hemoglobin 8.1 g/dL (11.7-16.6); Lymphocytes # 0.7 10^3/uL (0.8-4.8); Lymphocytes % 13.3 %; Mean Corpuscular HGB Conc 28.6 g/dL (30.0-36.0); Mean Corpuscular Volume 101.4 fl (80-94); Mean Platelet Volume 11.8 fL (7.4-10.4); Monocytes # 0.6 10^3/uL (0.2-0.9); Monocytes % 10.9 %; Neutrophils # 3.54 10^3/uL (1.8-7.7); Neutrophils % 70.4 %; Nucleated Red Blood Cells % 0 %; Platelet Count 149 10^3/cmm (130-400); Red Blood Count 2.79 10^6/uL (4.1-5.3); Red Cell Distribution Width 15.7 % (12.1-15.1)
[2021-03-24] MEDS: cholecalciferol (vitamin D3) 1,000 unit Tablet 1000 UNIT PO (08:13)
[2021-03-24] MEDS: pantoprazole DR 40 mg Tablet PO (08:13)
[2021-03-24] MEDS: HYDROcodone-acetaminophen 5-325 mg Tablet 1 TAB PO ×3 (08:13→18:20)
[2021-03-24] MEDS: docusate sodium 100 mg Capsule PO ×2 (08:13→18:20)
[2021-03-24] MEDS: metOLazone 5 MG Tablet 10 MG PO (08:13)
[2021-03-24] MEDS: aspirin 81 mg EC Tablet PO (08:13)
[2021-03-24] MEDS: clopidogrel 75 mg Tablet PO (08:14)
[2021-03-24] MEDS: cyanocobalamin 1,000 mcg/mL SDV 1000 MCG IM (08:14)
[2021-03-24] MEDS: isosorbide mononitrate ER 30 mg Tablet 90 MG PO (08:14)
[2021-03-24] MEDS: ferrous sulfate EC 325 mg Tablet PO ×2 (08:14→18:20)
[2021-03-24] MEDS: fluticasone nasal spray 16gm Btl 2 SPRAY INTRANASAL (08:15)
[2021-03-24] MEDS: nystatin powder 15 gm Btl 1 APPLIC TOPICAL ×2 (08:15→18:26)
[2021-03-24 08:20] LABS: Blood Urea Nitrogen 64 mg/dL (8-23); Carbon Dioxide 19 mmol/L (22-29); Chloride 105 mmol/L (98-107); Glucose 106 mg/dL (65-115); Magnesium 1.7 mg/dL (1.7-2.3); Osmolality Calculated 313 mOsm/kg (285-295); Sodium 142 mmol/L (136-145)
[2021-03-24 08:23] LABS: Anion Gap 22.5 (5-19); Potassium 4.5 mmol/L (3.5-5.1)
[2021-03-24 08:25] LABS: Calcium 5.8 mg/dL (8.5-10.5)
[2021-03-24] MEDS: levofloxacin-dextrose 5% 250 MG/50 ML PREMIX 50 MG IV (10:14)
[2021-03-24 11:42] LABS: Glucose Point of Care 135 mg/dL (70-110)
--- NOTE | 2021-03-24 13:10 | P.PN_ITS ---
Subjective Subjective: Vipul complains of orthopedic pains today. He was seen early this morning telemetric by nephrology. His morning labs were not back at that point. Of note, his creatinine has risen to 7. He is currently on IV Bumex and Zaroxolyn. His O's are much higher than his I's on IV diuresis. I explained to him that his situation is fairly challenging as we are robbing [employer] to pay Luis Manuel to a degree. He states that he has lots of relatives and friends that are on hemodialysis and he is quite comfortable with the notion of going on dialysis permanently. He was disappointed to find out that we could not do hemodialysis at the alf, and that he would have to travel back and forth to [facility] at least 3 times a week. Vitals/I&O/Wt Last Vital Signs Temp 97.6 F 03/24/21 04:00 Pulse 89 03/24/21 11:51 Resp 18 03/24/21 11:51 BP 140/71 03/24/21 11:51 Pulse Ox 94 03/24/21 11:51 03/23/21 03/24/21 03/24/21 22:59 06:59 14:59 Intake Total 250 / 663.75 240 / 903.75 1210 / 1210 Output Total 1200 / 1200 450 / 1650 Balance -950 / -536.25 -210 / -746.25 1210 / 1210 Weight last 48 hrs Weight 375 lb 3.2 oz Physical Exam Narrative: He is dealing with anasarca still. His heart and lungs are difficult to examine as there sounds are quite distant. I do not detect any new rashes or skin lesions. Neurologically he is alert and engaged. He is in no distress. Urinary Catheter Management: Fox: Cath Placed During This Visit: yes Reason for Continuing Indwelling Catheter: Acute Urinary Retention or Obstruct ion Urinary Catheter Date of Insertion: 03/21/21 Urinary Catheter Time of Insertion: 22:45 Data : 03/24/21 07:00 03/24/21 07:00 Micro: Microbiology 03/22/21 12:00 Urine Culture - Preliminary Urine,Clean Catch A&P Assessment and plan (1) Acute renal failure: He has diuresed some, but I fear at the sacrifice of his renal function as his creatinine is rising. I have informed him of his poor prognosis in terms that he hopefully understood. He however, is keen to have dialysis if needs be. Status: Acute Qualifiers: Acute renal failure type: with acute tubular necrosis Qualified Code(s): N17.0 - Acute kidney failure with tubular necrosis (2) Neuroendocrine tumor: Status: Chronic (3) Chronic kidney disease: Status: Chronic Attestations Medical Necessity Statement*: His renal failure is worsening. He will likely need some sort of aggressive intervention. Coding Level of Care Code Acute Thermo Processor for [facility]ovi Diagnoses Acute renal failure N17.0 Acute renal failure type: with acute tubular necrosis Neuroendocrine tumor D3A.8 Chronic kidney disease N18.9
--- NOTE | 2021-03-24 15:07 | PC.SOCIAL ---
IM follow up explained and copy provided. pt verbalized understanding.
[2021-03-24 16:03] LABS: Alkaline Phosphatase 74 IU/L (40-130); Blood Urea Nitrogen 63 mg/dL (8-23); Carbon Dioxide 16 mmol/L (22-29); Chloride 102 mmol/L (98-107); Globulin 3.6 g/dL (1.3-4.6); Glucose 133 mg/dL (65-115); Osmolality Calculated 306 mOsm/kg (285-295); Sodium 138 mmol/L (136-145); Total Bilirubin 0.3 mg/dL (0.15-1.2); Total Protein 6.6 g/dL (6.6-8.7)
[2021-03-24 17:05] LABS: Glucose Point of Care 225 mg/dL (70-110)
[2021-03-24 17:08] LABS: Alanine Aminotransferase 5 U/L (0-41); Anion Gap 24.5 (5-19); Aspartate Amino Transferase 12 U/L (0-40); Potassium 4.5 mmol/L (3.5-5.1)
[2021-03-24 17:10] LABS: Calcium 5.7 mg/dL (8.5-10.5)
[2021-03-24 17:43] LABS: Basophils % 0.6 %; Eosinophils # 0.2 10^3/uL (0.0-0.8); Eosinophils % 4.5 %; Hematocrit 27.8 % (42.0-52.0); Lymphocytes # 0.5 10^3/uL (0.8-4.8); Lymphocytes % 9.1 %; Mean Corpuscular HGB Conc 28.8 g/dL (30.0-36.0); Mean Corpuscular Hemoglobin 28.4 pg (28.0-34.0); Mean Corpuscular Volume 98.6 fl (80-94); Mean Platelet Volume 11.7 fL (7.4-10.4); Monocytes # 0.4 10^3/uL (0.2-0.9); Neutrophils # 4.17 10^3/uL (1.8-7.7); Neutrophils % 77.4 %; Nucleated Red Blood Cells % 0 %; Platelet Count 148 10^3/cmm (130-400); Red Blood Count 2.82 10^6/uL (4.1-5.3); Red Cell Distribution Width 15.6 % (12.1-15.1); White Blood Count 5.4 10^3/uL (4.0-10.0)
[2021-03-24] MEDS: insulin glargine 100 units/1 mL 10 UNIT SUBCUT (18:21)
[2021-03-24] MEDS: insulin lispro 100 unit/1 mL SUBCUT ×2 (18:25→21:21)
--- NOTE | 2021-03-24 19:15 | PC.NURSE ---
Patient is stating that he is feeling much better and his overall appearance is improved. Vitals stable. Fox intact and clean, output is at patients baseline due to kidney disease. Patient is very uncomfortable in bed, despite being turned Q2. Pain medications given. PT/OT worked with patient today and were unsuccessful. Stated that patients will need a tono lift if needing to get up. Patients appetite improved today. Report given to PATRICK Smith.
[2021-03-24] MEDS: acetaminophen 325 mg Tablet 650 MG PO (20:45)
[2021-03-24] MEDS: tamsulosin 0.4 mg Capsule PO (20:45)
[2021-03-24] MEDS: gabapentin 100 mg Capsule PO (20:45)
[2021-03-24] MEDS: duloxetine 20 mg Capsule PO (20:45)
[2021-03-24 21:22] LABS: Glucose Point of Care 185 mg/dL (70-110)
[2021-03-25] VITALS (139 sets, daily range): BP systolic 104–179; BP diastolic 68–119; PULSE 72–113; RESP 8–25; TEMP 36.3–37; O2SAT 88–100
--- NOTE | 2021-03-25 | SCC_ITS ---
Procedure done: 1. Placement of 16 Green[place]ic 23 cm long AshSplit tunneled hemodialysis catheter in the right internal jugular vein 2. Fluoroscopic guidance and interpretation for placement of catheter 3. Ultrasound guidance to access the right internal jugular vein 110.9 seconds of fluoroscopic guidance, for a cumulative dose of 39.73 mGy, was provided to Dr. Denis by the radiology department. C-arm images of the chest were saved for the patient's permanent record. ANNMARIED
[2021-03-25] MEDS: HYDROcodone-acetaminophen 5-325 mg Tablet 1 TAB PO ×2 (01:22→18:28)
[2021-03-25 05:07] LABS: Basophils % 0.8 %; Eosinophils # 0.2 10^3/uL (0.0-0.8); Eosinophils % 4.9 %; Hematocrit 28.4 % (42.0-52.0); Hemoglobin 8.2 g/dL (11.7-16.6); Lymphocytes # 0.6 10^3/uL (0.8-4.8); Mean Corpuscular HGB Conc 28.9 g/dL (30.0-36.0); Mean Corpuscular Hemoglobin 28.6 pg (28.0-34.0); Mean Platelet Volume 11.7 fL (7.4-10.4); Monocytes # 0.6 10^3/uL (0.2-0.9); Monocytes % 11.8 %; Neutrophils # 3.46 10^3/uL (1.8-7.7); Neutrophils % 70.1 %; Nucleated Red Blood Cells % 0 %; Platelet Count 149 10^3/cmm (130-400); Red Blood Count 2.87 10^6/uL (4.1-5.3); Red Cell Distribution Width 15.6 % (12.1-15.1); White Blood Count 4.9 10^3/uL (4.0-10.0)
[2021-03-25 05:28] LABS: Alanine Aminotransferase < 5 U/L (0-41); Albumin Level 3.2 g/dL (3.5-5.2); Alkaline Phosphatase 71 IU/L (40-130); Anion Gap 21.3 (5-19); Aspartate Amino Transferase 8 U/L (0-40); Blood Urea Nitrogen 66 mg/dL (8-23); Carbon Dioxide 23 mmol/L (22-29); Chloride 102 mmol/L (98-107); Globulin 3.3 g/dL (1.3-4.6); Glucose 99 mg/dL (65-115); Osmolality Calculated 313 mOsm/kg (285-295); Potassium 4.3 mmol/L (3.5-5.1); Sodium 142 mmol/L (136-145); Total Bilirubin 0.2 mg/dL (0.15-1.2); Total Protein 6.5 g/dL (6.6-8.7)
[2021-03-25] MEDS: heparin 5,000 unit/mL INJ 1 mL 5000 UNIT SUBCUT ×2 (05:30→18:28)
[2021-03-25] MEDS: bumetanide 0.25 mg/mL SDV 10 mL 2 MG IVP (05:30)
[2021-03-25 05:34] LABS: Calcium 5.6 mg/dL (8.5-10.5)
[2021-03-25] MEDS: calcium gluconate 0.9% NaCL 1 GM/50 ML PREMIX IV ×2 (05:53→06:20)
[2021-03-25 06:49] LABS: Glucose Point of Care 81 mg/dL (70-110)
--- NOTE | 2021-03-25 07:54 | PM.PN ---
Subjective Subjective: lethargic. however, nurse says he is improving. Medications: Reviewed: Yes Medication Review Details: Current Medications Acetaminophen (Acetaminophen 325 Mg Tablet) 650 mg PO Q6H PRN PRN Reason: Mild/Mod Pain Or Temp >/= 101 Last Admin: 03/24/21 20:45 Dose: 650 mg Documented by: Hydrocodone Bitart/Acetaminophen (Hydrocodone-Acetaminophen 5-325 Mg Tablet) 1 tab PO Q4H PRN PRN Reason: MODERATE TO SEVERE PAIN Last Admin: 03/25/21 01:22 Dose: 1 tab Documented by: Albuterol Sulfate (Albuterol 8 Gm Mdi) 1 puff INHALATION QID PRN PRN Reason: Shortness Of Breath Aspirin (Aspirin 81 Mg Ec Tablet) 81 mg PO DAILY@08 [facility] Last Admin: 03/24/21 08:13 Dose: 81 mg Documented by: Bicalutamide (Bicalutamide 50 Mg Tablet) 50 mg PO DAILY@08 [facility] Last Admin: 03/24/21 08:13 Dose: 50 mg Documented by: Bisacodyl (Bisacodyl 5 Mg Tablet) 10 mg PO DAILY PRN; Protocol PRN Reason: Constipation (see protocol) Bumetanide (Bumetanide 0.25 Mg/Ml Sdv 10 Ml) 2 mg IVP Q12H [facility] Last Admin: 03/25/21 05:30 Dose: 2 mg Documented by: Clopidogrel Bisulfate (Clopidogrel 75 Mg Tablet) 75 mg PO DAILY@08 [facility] Last Admin: 03/24/21 08:14 Dose: 75 mg Documented by: Cyanocobalamin (Cyanocobalamin 1,000 Mcg/Ml Sdv) 1,000 mcg IM DAILY [facility] Last Admin: 03/24/21 08:14 Dose: 1,000 mcg Documented by: Dextrose (Dextrose 50% Syringe 50 Ml) 25 ml IVP ONCE PRN; Protocol PRN Reason: hypoglycemia protocol Dextrose (Dextrose 50% Syringe 50 Ml) 50 ml IVP PRN PRN; Protocol PRN Reason: hypoglycemia protocol Docusate Sodium (Docusate Sodium 100 Mg Capsule) 100 mg PO BID [facility] Last Admin: 03/24/21 18:20 Dose: 100 mg Documented by: Duloxetine HCl (Duloxetine 20 Mg Capsule) 20 mg PO BEDTIME@20 [facility] Last Admin: 03/24/21 20:45 Dose: 20 mg Documented by: Ferrous Sulfate (Ferrous Sulfate Ec 325 Mg Tablet) 325 mg PO BIDWM [facility] Last Admin: 03/24/21 18:20 Dose: 325 mg Documented by: Fluticasone Propionate (Fluticasone Nasal [place] 16gm Btl) 2 spray INTRANASAL DAILY@08 [facility] Last Admin: 03/24/21 08:15 Dose: 2 spray Documented by: Gabapentin (Gabapentin 100 Mg Capsule) 100 mg PO BEDTIME@20 [facility] Last Admin: 03/24/21 20:45 Dose: 100 mg Documented by: Glucagon (Glucagon 1 Mg/Ml Inj 1 Ml) 1 mg IM ONCE PRN; Protocol PRN Reason: Adult Acute Hypoglycemia Prot. Heparin Sodium (Porcine) (Heparin 5,000 Unit/Ml Inj 1 Ml) 5,000 unit SUBCUT Q12H [facility] Last Admin: 03/25/21 05:30 Dose: 5,000 unit Documented by: Dextrose (D5w) 500 mls @ 100 mls/hr IV ONCE PRN; Protocol PRN Reason: Adult Acute Hypoglycemia Prot Levofloxacin/Dextrose (Levaquin-D5w) 250 mg in 50 mls @ 50 mls/hr IV Q48H [facility]; Protocol Last Infusion: 03/24/21 11:17 Dose: Infused Documented by: Vancomycin HCl 1,000 mg/ (Sodium Chloride) 250 mls @ 250 mls/hr IV Q48H [facility] Last Infusion: 03/23/21 21:01 Dose: Infused Documented by: calcium gluconate 0.9% NaCL (Calcium Gluconate 0.9% Nacl) 1 gm in 50 mls @ 100 mls/hr IV Q30MIN [facility] Stop: 03/26/21 06:14 Last Admin: 03/25/21 06:20 Dose: 100 mls/hr Documented by: calcium gluconate 0.9% NaCL (Calcium Gluconate 0.9% Nacl) 1 gm in 50 mls @ 100 mls/hr IV Q30MIN [facility] Stop: 03/26/21 06:14 Insulin Glargine (Insulin Glargine 100 Units/1 Ml) 10 unit SUBCUT BID@06,18 [facility] Last Admin: 03/25/21 06:19 Dose: Not Given Documented by: Insulin Human Lispro (Insulin Lispro 100 Unit/1 Ml) 0 unit SUBCUT BEDTIME [facility]; Protocol Last Admin: 03/24/21 21:21 Dose: 2 unit Documented by: Insulin Human Lispro (Insulin Lispro 100 Unit/1 Ml) 0 unit SUBCUT TIDWM [facility]; Protocol Last Admin: 03/24/21 18:25 Dose: 6 unit Documented by: Isosorbide Mononitrate (Isosorbide Mononitrate Er 30 Mg Tablet) 90 mg PO DAILY@08 [facility] Last Admin: 03/24/21 08:14 Dose: 90 mg Documented by: Metolazone (Metolazone 5 Mg Tablet) 10 mg PO DAILY [facility] Last Admin: 03/24/21 08:13 Dose: 10 mg Documented by: Nitroglycerin (Nitroglycerin 0.4 Mg Sublingual Tablet) 0.4 mg SUBLINGUAL Q5M PRN PRN Reason: Chest Pain Nystatin (Nystatin Powder 15 Gm Btl) 1 applic TOPICAL BID [facility] Last Admin: 03/24/21 18:26 Dose: 1 applic Documented by: Ondansetron HCl (Ondansetron 4 Mg Tablet) 4 mg PO Q8H PRN PRN Reason: NAUSEA AND VOMITING Pantoprazole Sodium (Pantoprazole Dr 40 Mg Tablet) 40 mg PO DAILY [facility] Last Admin: 03/24/21 08:13 Dose: 40 mg Documented by: Tamsulosin HCl (Tamsulosin 0.4 Mg Capsule) 0.4 mg PO BEDTIME@20 [facility] Last Admin: 03/24/21 20:45 Dose: 0.4 mg Documented by: Vitamin D (Cholecalciferol (Vitamin D3) 1,000 Unit Tablet) 1,000 unit PO DAILY@08 [facility] Last Admin: 03/24/21 08:13 Dose: 1,000 unit Documented by: Vitals/I&O/Wt Last Vital Signs Temp 97.7 F 03/25/21 04:00 Pulse 99 03/25/21 04:53 Resp 18 03/25/21 04:00 BP 120/77 03/25/21 04:00 Pulse Ox 95 03/25/21 04:00 03/24/21 03/25/21 03/25/21 22:59 06:59 14:59 Intake Total 240 / 1450 445.000 / 1895.000 Output Total 750 / 750 800 / 1550 Balance -510 / 700 -355.000 / 345.000 Physical Exam Narrative: anasarca, lethargic, weak vs noted heent- nc/at, eomi, anicteric neck obese lungs crackles on left and clear rt heart reg, +SHANNON abd soft, nt, distended, ascites ext b/l edema neuro- lethargic Urinary Catheter Management: Fox: Cath Placed During This Visit: yes Reason for Continuing Indwelling Catheter: Acute Urinary Retention or Obstruction Urinary Catheter Date of Insertion: 03/21/21 Urinary Catheter Time of Insertion: 22:45 Data : 03/25/21 04:40 03/25/21 04:40 Micro: Microbiology 03/22/21 12:00 Urine Culture - Final Urine,Clean Catch A&P Assessment and plan (1) Acute renal failure: Status: Acute Qualifiers: Acute renal failure type: with acute tubular necrosis Qualified Code(s): N17.0 - Acute kidney failure with tubular necrosis Plan 81 yr old man 1. CKD stage 4 - cRS, obesity, dm, htn. h/o prostate ca on flomax and casodex 2. Kathy- CRS- monitor cr w/ diuresis -bumex 2 mgm iv q12 hr metolazone 10 d -consider bumex or lasix drip -may need dialysis soon 3. lethargy- repeat abg- eval for hypercapneia 4. echo- moderate MR, TR, EF 45% and grade 2/4 diastolic dysfunction 5. 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 Has been treated with regular Sandostatin and follows with Dr. Allen.? Also noted has been bilateral renal masses that were indeterminate. 6. DM right foot ulcer - monitor vanco levels 6b. dm control- no jackelyn-i/ arb, metformin, sglt2-i, sulfinylureas w/ kathy on ckd 7. anemia- tsat 30%, ferritin pending 8. hyperuricemia- allopurinol 100 d 9. hypocalcemia- check phos, pth, vit d levels seen and examined w/ rn- telehealth visit- time spent 30+ min Attestations Medical Necessity Statement*: chf, kathy, ckd, AMS Time Spent in Patient Care: 16 - 35 minutes (>than 50% of time spent in counselling and/or direct pt care on unit). Coding Level of Care Code Acute Snagger for [facility] Fwd Diagnoses Acute renal failure N17.0 Acute renal failure type: with acute tubular necrosis
[2021-03-25] MEDS: cyanocobalamin 1,000 mcg/mL SDV 1000 MCG IM (08:02)
[2021-03-25] MEDS: metOLazone 5 MG Tablet 10 MG PO (08:02)
[2021-03-25] MEDS: cholecalciferol (vitamin D3) 1,000 unit Tablet 1000 UNIT PO (08:02)
[2021-03-25] MEDS: docusate sodium 100 mg Capsule PO ×2 (08:02→18:28)
[2021-03-25] MEDS: isosorbide mononitrate ER 30 mg Tablet 90 MG PO (08:02)
[2021-03-25] MEDS: pantoprazole DR 40 mg Tablet PO (08:02)
[2021-03-25] MEDS: ferrous sulfate EC 325 mg Tablet PO ×2 (08:03→18:28)
[2021-03-25] MEDS: fluticasone nasal spray 16gm Btl 2 SPRAY INTRANASAL (08:03)
[2021-03-25] MEDS: clopidogrel 75 mg Tablet PO (08:03)
[2021-03-25] MEDS: aspirin 81 mg EC Tablet PO (08:03)
[2021-03-25] MEDS: nystatin powder 15 gm Btl 1 APPLIC TOPICAL ×2 (08:03→18:27)
--- NOTE | 2021-03-25 10:22 | P.CONIM_ITS ---
Providers/Reason For Consult Consulting Physician/Specialty*: General Surgery Dr. Denis Reason for Consult*: ARF requiring dialysis access Attending Physician: Umer Benavidez MD Primary Care Provider: Umer Benavidez MD History of Present Illness History of Present Illness Marco Antonio Valadez is a 81 year old male who was brought to the hospital with worsening renal function noted on routine labs at the group home facility. Since admission his creatinine has not improved and he has been becoming more acidotic and is currently on BiPAP. He will need dialysis soon as per nephrolog y. No prior history of central line placement of clavicle fractures. Patient is currently on Plavix. 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 Review of Systems General: Reports: 10 or more systems reviewed and unremarkable except in HPI and below Const: Reports: change in weight and fatigue Eyes: Reports: change in vision ENMT: Reports: odynophagia Card: Reports: chest pain Resp: Reports: dyspnea GI: Reports: abdominal pain, dysphagia and hematochezia : Reports: dysuria Skin/Breast: Reports: rash and non-healing lesions Neuro: Reports: seizure-like activity Fernando/Lymph: Denies: easy bruising Medications/Allergies Home Medications Medication Instructions Recorded Confirmed Last Taken Type nitroglycerin 0.4 mg sublingual 0.4 mg SUBLINGUAL Q5M PRN 03/16/19 03/21/21 Unknown History tablet torsemide 20 mg tablet 20 mg PO DAILY@03/16/19 03/21/21 03/21/21 History albuterol sulfate 90 mcg/actuation 1 puff INHALATION QID PRN 03/17/19 03/21/21 Unknown History aerosol inhaler bicalutamide 50 mg tablet 50 mg PO DAILY@03/17/19 03/21/21 03/21/21 History clopidogrel 75 mg tablet 75 mg PO DAILY@03/17/19 03/21/21 03/21/21 History duloxetine 20 mg capsule,delayed 20 mg PO BEDTIME@03/17/19 03/21/21 03/20/21 History release gabapentin 100 mg capsule 100 mg PO BEDTIME@03/17/19 03/21/21 03/20/21 History insulin aspart U-100 100 unit/mL 5 unit SUBCUT TID@07,11,17 #0 03/17/19 03/21/21 Unknown History (3 mL) subcutaneous pen (Novolog Flexpen U-100 Insulin aspart) acetaminophen 300 mg-codeine 30 mg 1 tab PO Q6H PRN 07/05/20 03/21/21 Unknown History tablet isosorbide mononitrate 60 mg 90 mg PO DAILY@08 tab 07/21/20 03/21/21 03/21/21 History tablet,extended release 24 hr pantoprazole 40 mg tablet,delayed 40 mg PO DAILY@11/10/20 03/21/21 03/21/21 History release tamsulosin 0.4 mg capsule (Flomax) 0.4 mg PO BEDTIME@11/10/20 03/21/21 03/20/21 History ondansetron 4 mg disintegrating 4 mg PO Q8H PRN #10 tab 11/30/20 03/21/21 Unknown Rx tablet aspirin 81 mg tablet,delayed 81 mg PO DAILY@03/21/21 03/21/21 03/21/21 History release (Adult Low Dose Aspirin) calcium 200 mg PO DAILY@03/21/21 03/21/21 03/21/21 History cholecalciferol (vitamin D3) 25 25 mcg PO DAILY@03/21/21 03/21/21 03/21/21 History mcg (1,000 unit) tablet (Vitamin D3) cyanocobalamin (vitamin B-12) 5,000 mcg SUBLINGUAL DAILY@03/21/21 03/21/21 03/21/21 History 5,000 mcg sublingual tablet (Vitamin B-12) ergocalciferol (vitamin D2) 1,250 50,000 unit PO Q7D 03/21/21 03/21/21 Unknown History mcg (50,000 unit) capsule ferrous sulfate 325 mg (65 mg 325 mg PO DAILY@03/21/21 03/21/21 03/21/21 History iron) tablet fluticasone propionate 50 2 spray INTRANASAL DAILY@03/21/21 03/21/21 03/21/21 History mcg/actuation nasal spray,suspension (Flonase Allergy Relief) insulin glargine 100 unit/mL (3 30 unit SUBCUT BID@03/21/21 03/21/21 Unknown History mL) subcutaneous pen (Lantus Solostar U-100 Insulin) Allergies Allergy/AdvReac Type Severity Reaction Status Date / Time Iodinated Contrast Media Allergy Mild ALGY-Hives Verified 03/21/21 10:50 lisinopril Allergy Unknown Verified 03/21/21 12:24 rosuvastatin [From Crestor] Allergy Unknown Verified 03/21/21 12:24 Current Medications Generic Name Dose Route Start Last Admin Trade Name Connorq PRN Reason Stop Dose Admin Acetaminophen 650 mg 03/21/21 14:59 03/24/21 20:45 Acetaminophen 325 Mg Tablet PO 650 mg Q6H PRN Administration Mild/Mod Pain Or Temp >/= 101 Hydrocodone Bitart/Acetaminophen 1 tab 03/21/21 14:59 03/25/21 01:22 Hydrocodone-Acetaminophen 5-325 Mg Tablet PO 1 tab Q4H PRN Administration MODERATE TO SEVERE PAIN Aspirin 81 mg 03/22/21 08:00 03/25/21 08:03 Aspirin 81 Mg Ec Tablet PO 81 mg DAILY@08 [facility] Administration Bicalutamide 50 mg 03/22/21 08:00 03/25/21 08:02 Bicalutamide 50 Mg Tablet PO 50 mg DAILY@08 [facility] Administration Clopidogrel Bisulfate 75 mg 03/22/21 08:00 03/25/21 08:03 Clopidogrel 75 Mg Tablet PO 75 mg DAILY@08 [facility] Administration Cyanocobalamin 1,000 mcg 03/22/21 09:00 03/25/21 08:02 Cyanocobalamin 1,000 Mcg/Ml Sdv IM 1,000 mcg DAILY [facility] Administration Docusate Sodium 100 mg 03/22/21 09:00 03/25/21 08:02 Docusate Sodium 100 Mg Capsule PO 100 mg BID [facility] Administration Duloxetine HCl 20 mg 03/21/21 20:00 03/24/21 20:45 Duloxetine 20 Mg Capsule PO 20 mg BEDTIME@20 [facility] Administration Ferrous Sulfate 325 mg 03/22/21 08:00 03/25/21 08:03 Ferrous Sulfate Ec 325 Mg Tablet PO 325 mg BIDWM [facility] Administration Fluticasone Propionate 2 spray 03/22/21 08:00 03/25/21 08:03 Fluticasone Nasal [place] 16gm Btl INTRANASAL 2 spray DAILY@08 [facility] Administration Gabapentin 100 mg 03/21/21 20:00 03/24/21 20:45 Gabapentin 100 Mg Capsule PO 100 mg BEDTIME@20 [facility] Administration Heparin Sodium (Porcine) 5,000 unit 03/21/21 18:30 03/25/21 05:30 Heparin 5,000 Unit/Ml Inj 1 Ml SUBCUT 5,000 unit Q12H [facility] Administration Levofloxacin/Dextrose 250 mg in 50 mls @ 50 mls/hr 03/22/21 09:00 03/24/21 11:17 Levaquin-D5w IV Infused Q48H [facility] Infusion Protocol Vancomycin HCl 1,000 mg/ 250 mls @ 250 mls/hr 03/21/21 20:00 03/23/21 21:01 Sodium Chloride IV Infused Q48H [facility] Infusion calcium gluconate 0.9% NaCL 1 gm in 50 mls @ 100 mls/hr 03/25/21 05:45 03/25/21 08:04 Calcium Gluconate 0.9% Nacl IV 03/26/21 06:14 Infused Q30MIN [facility] Infusion Insulin Glargine 10 unit 03/22/21 18:00 03/25/21 06:19 Insulin Glargine 100 Units/1 Ml SUBCUT Not Given BID@06,18 [facility] Insulin Human Lispro 0 unit 03/21/21 21:00 03/24/21 21:21 Insulin Lispro 100 Unit/1 Ml SUBCUT 2 unit BEDTIME [facility] Administration Protocol Insulin Human Lispro 0 unit 03/22/21 08:00 03/25/21 07:56 Insulin Lispro 100 Unit/1 Ml SUBCUT Not Given TIDWM [facility] Protocol Isosorbide Mononitrate 90 mg 03/22/21 08:00 03/25/21 08:02 Isosorbide Mononitrate Er 30 Mg Tablet PO 90 mg DAILY@08 [facility] Administration Metolazone 10 mg 03/23/21 09:15 03/25/21 08:02 Metolazone 5 Mg Tablet PO 10 mg DAILY [facility] Administration Nystatin 1 applic 03/22/21 09:00 03/25/21 08:03 Nystatin Powder 15 Gm Btl TOPICAL 1 applic BID [facility] Administration Pantoprazole Sodium 40 mg 03/22/21 09:00 03/25/21 08:[address] 40 Mg Tablet PO 40 mg DAILY [facility] Administration Tamsulosin HCl 0.4 mg 03/21/21 20:00 03/24/21 20:45 Tamsulosin 0.4 Mg Capsule PO 0.4 mg BEDTIME@20 [facility] Administration Vitamin D 1,000 unit 03/22/21 08:00 03/25/21 08:02 Cholecalciferol (Vitamin D3) 1,000 Unit Tablet PO 1,000 unit DAILY@08 [facility] Administration PFSH Acute PFSH: Medical History Aortic stenosis B12 deficiency Chronic kidney disease Closed fracture of lumbar vertebral body (~11/2020) L5 COPD (chronic obstructive pulmonary disease) Coronary disease COVID-19 vaccine administered moderna, full + booster Degenerative disc disease Dyslipidemia GERD (gastroesophageal reflux disease) History of echocardiogram EF 45-50% 06/2020 Hypertension Iron deficiency anemia Morbid obesity Neuroendocrine tumor Stage IV, low-grade, around the head of the pancreas/duodenum, with lymph node prominence, treated with sandostatin, follows with Dr Allen, not a surgical candidate Osteoarthritis Peripheral vascular disease including carotid disease Prostate cancer Renal mass bilateral, indeterminant Sleep apnea Systolic and diastolic CHF, chronic Type 2 diabetes mellitus Venous stasis Shila-Hernandez syndrome diagnosed in Surgical History H/O prostatectomy History of coronary artery stent placement History of orchiectomy Family History Other Chronic kidney disease (CKD) Diabetes Hyperlipidemia Hypertension Denies family history of Cancer Social History Smoking and tobacco status: never smoked Alcohol intake: never Substance/Drug Use: never Caregiver/support person: Yes (daughter) Housing: Alf Vitals/I&O/Wt Last Vital Signs Temp 98.6 F 03/25/21 08:00 Pulse 108 H 03/25/21 09:00 Resp 16 03/25/21 08:16 BP 136/79 03/25/21 08:00 Pulse Ox 95 03/25/21 09:00 03/24/21 03/25/21 03/25/21 22:59 06:59 14:59 Intake Total 240 / 1895.000 445.000 / 1895.000 50 / 50 Output Total 750 / 1550 800 / 1550 Balance -510 / 345.000 -355.000 / 345.000 50 / 50 Physical Exam Narrative: HEENT: Normocephalic, on BIPAP for acidosis Eye: Sclera /conjunctiva normal Respiratory and chest: Bilateral clear breath sounds on auscultation Cardiovascular: Normal S1 and S2 heart sounds Abdomen: Soft to palpation Neurological: Oriented to place person and time Skin: Intact, no lesions appreciated on gross exam Urinary Catheter Management: Fox: Cath Placed During This Visit: yes Reason for Continuing Indwelling Catheter: Acute Urinary Retention or Obstruction Urinary Catheter Date of Insertion: 03/21/21 Urinary Catheter Time of Insertion: 22:45 Data : 03/25/21 04:40 03/25/21 04:40 Micro: Microbiology 03/22/21 12:00 Urine Culture - Final Urine,Clean Catch A&P Assessment and plan (1) Acute renal failure: 81-year-old male with acute on chronic renal failure, currently acidotic who requires long-term dialysis access. Plan for placement of tunneled hemodialysis catheter under MAC today Procedure, risks, benefits and alternatives have been discussed with the patient who wishes to proceed with surgery. Status: Acute Qualifiers: Acute renal failure type: with acute tubular necrosis Qualified Code(s): N17.0 - Acute kidney failure with tubular necrosis Consult Attestations Medical Necessity Statement: As per attending physician Coding Level of Care Code Acute Bag Loader for [facility] Diagnoses Acute renal failure N17.0 Acute renal failure type: with acute tubular necrosis
--- NOTE | 2021-03-25 10:23 | SC_ITS ---
WS: [id number] C-ARM RADIOGRAPHS CHEST; 3 IMAGES HISTORY: dialysis catheter insertion COMPARISON: None available. Interval placement of a dialysis catheter. Tips overlie the RIGHT heart. SC/C-arm FL for CVA [id number] IMPRESSION: Intraoperative imaging during dialysis catheter placement.
--- NOTE | 2021-03-25 10:34 | P.ANESASSM_ITS ---
Pre-Anesthetic Assessment Height/Weight: Height 1.75 m Weight 170.188 kg Temp Pulse Resp BP Pulse Ox 98.6 F 108 H 16 136/79 95 03/25/21 08:00 03/25/21 09:00 03/25/21 08:16 03/25/21 08:00 03/25/21 09:00 Preop Diagnosis: ARF Operation Date: 03/25/21 10:05 Proposed Procedures p Dialysis Catheter Insertion(Not Applicable) - Jr Denis MD Familial anesthetic complications: None Was Beta Martinez taken within 24 hours: N/A Was Clonidine taken within 24 hours: N/A Social No alcohol and No tobacco Exam alert, oriented x 3 and regular rate & rhythm Decrease BS Airway Submandibular: within normal limits Cervical ROM: within normal limits Mallampati: Class III Dentition: false Pulmonary Acute resp failure on BiPAP CV/HEM Anemia (chronic), Coronary Artery Disease, Congestive Heart Failure (EF 45%), Hypertension, Murmur (mild , mild-mod MR) and Peripheral Vascular Disease Chronic Renal Insufficiency Acute on chronic renal failure GI Gastroesophageal Reflux Disease Metabolic Diabetes Mellitus, Hyperlipidemia and Morbid Obesity Fluid overload [facility] [place] Lower Back Pain Anesthetic Plan ASA status: 4 Anesthesia: MAC Medications/Allergies Home Medications Medication Instructions Recorded Confirmed Last Taken Type nitroglycerin 0.4 mg sublingual 0.4 mg SUBLINGUAL Q5M PRN 03/16/19 03/21/21 Unknown History tablet torsemide 20 mg tablet 20 mg PO DAILY@03/16/19 03/21/21 03/21/21 History albuterol sulfate 90 mcg/actuation 1 puff INHALATION QID PRN 03/17/19 03/21/21 Unknown History aerosol inhaler bicalutamide 50 mg tablet 50 mg PO DAILY@03/17/19 03/21/21 03/21/21 History clopidogrel 75 mg tablet 75 mg PO DAILY@03/17/19 03/21/21 03/21/21 History duloxetine 20 mg capsule,delayed 20 mg PO BEDTIME@03/17/19 03/21/21 03/20/21 History release gabapentin 100 mg capsule 100 mg PO BEDTIME@03/17/19 03/21/21 03/20/21 History insulin aspart U-100 100 unit/mL 5 unit SUBCUT TID@,11,17 #0 03/17/19 03/21/21 Unknown History (3 mL) subcutaneous pen (Novolog Flexpen U-100 Insulin aspart) acetaminophen 300 mg-codeine 30 mg 1 tab PO Q6H PRN 07/05/20 03/21/21 Unknown History tablet isosorbide mononitrate 60 mg 90 mg PO DAILY@08 tab 07/21/20 03/21/21 03/21/21 History tablet,extended release 24 hr pantoprazole 40 mg tablet,delayed 40 mg PO DAILY@11/10/20 03/21/21 03/21/21 History release tamsulosin 0.4 mg capsule (Flomax) 0.4 mg PO BEDTIME@11/10/20 03/21/21 03/20/21 History ondansetron 4 mg disintegrating 4 mg PO Q8H PRN #10 tab 11/30/20 03/21/21 Unknown Rx tablet aspirin 81 mg tablet,delayed 81 mg PO DAILY@03/21/21 03/21/21 03/21/21 History release (Adult Low Dose Aspirin) calcium 200 mg PO DAILY@03/21/21 03/21/21 03/21/21 History cholecalciferol (vitamin D3) 25 25 mcg PO DAILY@03/21/21 03/21/21 03/21/21 History mcg (1,000 unit) tablet (Vitamin D3) cyanocobalamin (vitamin B-12) 5,000 mcg SUBLINGUAL DAILY@03/21/21 03/21/21 03/21/21 History 5,000 mcg sublingual tablet (Vitamin B-12) ergocalciferol (vitamin D2) 1,250 50,000 unit PO Q7D 03/21/21 03/21/21 Unknown History mcg (50,000 unit) capsule ferrous sulfate 325 mg (65 mg 325 mg PO DAILY@03/21/21 03/21/21 03/21/21 History iron) tablet fluticasone propionate 50 2 spray INTRANASAL DAILY@03/21/21 03/21/21 03/21/21 History mcg/actuation nasal spray,suspension (Flonase Allergy Relief) insulin glargine 100 unit/mL (3 30 unit SUBCUT BID@03/21/21 03/21/21 Unknown History mL) subcutaneous pen (Lantus Solostar U-100 Insulin) Allergies Allergy/AdvReac Type Severity Reaction Status Date / Time Iodinated Contrast Media Allergy Mild ALGY-Hives Verified 03/21/21 10:50 lisinopril Allergy Unknown Verified 03/21/21 12:24 rosuvastatin [From Crestor] Allergy Unknown Verified 03/21/21 12:24 Current Medications Generic Name Dose Route Start Last Admin Trade Name Freq PRN Reason Stop Dose Admin Acetaminophen 650 mg 03/21/21 14:59 03/24/21 20:45 Acetaminophen 325 Mg Tablet PO 650 mg Q6H PRN Administration Mild/Mod Pain Or Temp >/= 101 Hydrocodone Bitart/Acetaminophen 1 tab 03/21/21 14:59 03/25/21 01:22 Hydrocodone-Acetaminophen 5-325 Mg Tablet PO 1 tab Q4H PRN Administration MODERATE TO SEVERE PAIN Aspirin 81 mg 03/22/21 08:00 03/25/21 08:03 Aspirin 81 Mg Ec Tablet PO 81 mg DAILY@08 [facility] Administration Bicalutamide 50 mg 03/22/21 08:00 03/25/21 08:02 Bicalutamide 50 Mg Tablet PO 50 mg DAILY@08 [facility] Administration Clopidogrel Bisulfate 75 mg 03/22/21 08:00 03/25/21 08:03 Clopidogrel 75 Mg Tablet PO 75 mg DAILY@08 [facility] Administration Cyanocobalamin 1,000 mcg 03/22/21 09:00 03/25/21 08:02 Cyanocobalamin 1,000 Mcg/Ml Sdv IM 1,000 mcg DAILY [facility] Administration Docusate Sodium 100 mg 03/22/21 09:00 03/25/21 08:02 Docusate Sodium 100 Mg Capsule PO 100 mg BID [facility] Administration Duloxetine HCl 20 mg 03/21/21 20:00 03/24/21 20:45 Duloxetine 20 Mg Capsule PO 20 mg BEDTIME@20 [facility] Administration Ferrous Sulfate 325 mg 03/22/21 08:00 03/25/21 08:03 Ferrous Sulfate Ec 325 Mg Tablet PO 325 mg BIDWM [facility] Administration Fluticasone Propionate 2 spray 03/22/21 08:00 03/25/21 08:03 Fluticasone Nasal [place] 16gm Btl INTRANASAL 2 spray DAILY@08 [facility] Administration Gabapentin 100 mg 03/21/21 20:00 03/24/21 20:45 Gabapentin 100 Mg Capsule PO 100 mg BEDTIME@20 [facility] Administration Heparin Sodium (Porcine) 5,000 unit 03/21/21 18:30 03/25/21 05:30 Heparin 5,000 Unit/Ml Inj 1 Ml SUBCUT 5,000 unit Q12H [facility] Administration Levofloxacin/Dextrose 250 mg in 50 mls @ 50 mls/hr 03/22/21 09:00 03/24/21 11:17 Levaquin-D5w IV Infused Q48H [facility] Infusion Protocol Vancomycin HCl 1,000 mg/ 250 mls @ 250 mls/hr 03/21/21 20:00 03/23/21 21:01 Sodium Chloride IV Infused Q48H [facility] Infusion calcium gluconate 0.9% NaCL 1 gm in 50 mls @ 100 mls/hr 03/25/21 05:45 03/25/21 08:04 Calcium Gluconate 0.9% Nacl IV 03/26/21 06:14 Infused Q30MIN [facility] Infusion Insulin Glargine 10 unit 03/22/21 18:00 03/25/21 06:19 Insulin Glargine 100 Units/1 Ml SUBCUT Not Given BID@06,18 [facility] Insulin Human Lispro 0 unit 03/21/21 21:00 03/24/21 21:21 Insulin Lispro 100 Unit/1 Ml SUBCUT 2 unit BEDTIME [facility] Administration Protocol Insulin Human Lispro 0 unit 03/22/21 08:00 03/25/21 07:56 Insulin Lispro 100 Unit/1 Ml SUBCUT Not Given TIDWM [facility] Protocol Isosorbide Mononitrate 90 mg 03/22/21 08:00 03/25/21 08:02 Isosorbide Mononitrate Er 30 Mg Tablet PO 90 mg DAILY@08 [facility] Administration Metolazone 10 mg 03/23/21 09:15 03/25/21 08:02 Metolazone 5 Mg Tablet PO 10 mg DAILY [facility] Administration Nystatin 1 applic 03/22/21 09:00 03/25/21 08:03 Nystatin Powder 15 Gm Btl TOPICAL 1 applic BID [facility] Administration Pantoprazole Sodium 40 mg 03/22/21 09:00 03/25/21 08:[address] 40 Mg Tablet PO 40 mg DAILY [facility] Administration Tamsulosin HCl 0.4 mg 03/21/21 20:00 03/24/21 20:45 Tamsulosin 0.4 Mg Capsule PO 0.4 mg BEDTIME@20 [facility] Administration Vitamin D 1,000 unit 03/22/21 08:00 03/25/21 08:02 Cholecalciferol (Vitamin D3) 1,000 Unit Tablet PO 1,000 unit DAILY@08 [facility] Administration [facility] Anesthesia Medical History Aortic stenosis B12 deficiency Chronic kidney disease Closed fracture of lumbar vertebral body (~11/2020) L5 COPD (chronic obstructive pulmonary disease) Coronary disease COVID-19 vaccine administered moderna, full + booster Degenerative disc disease Dyslipidemia GERD (gastroesophageal reflux disease) History of echocardiogram EF 45-50% 06/2020 Hypertension Iron deficiency anemia Morbid obesity Neuroendocrine tumor Stage IV, low-grade, around the head of the pancreas/duodenum, with lymph node prominence, treated with sandostatin, follows with Dr Allen, not a surgical candidate Osteoarthritis Peripheral vascular disease including carotid disease Prostate cancer Renal mass bilateral, indeterminant Sleep apnea Systolic and diastolic CHF, chronic Type 2 diabetes mellitus Venous stasis Shila-Hernandez syndrome diagnosed in Surgical History H/O prostatectomy History of coronary artery stent placement History of orchiectomy Family History Other Chronic kidney disease (CKD) Diabetes Hyperlipidemia Hypertension Denies family history of Cancer Social History Smoking and tobacco status: never smoked Alcohol intake: never Substance/Drug Use: never Caregiver/support person: Yes (daughter) Housing: Shelter Data Anesthesia : 03/25/21 04:40 03/25/21 04:40 Short CBC 03/24/21 03/24/21 03/24/21 Range/Units 07:00 15:35 17:22 WBC 5.0 Cancelled 5.4 (4.0-10.0) 10^3/uL Hgb 8.1 L Cancelled 8.0 L (11.7-16.6) g/dL Hct 28.3 L Cancelled 27.8 L (42.0-52.0) % MCV 101.4 H Cancelled 98.6 H (80-94) fl Plt Count 149 Cancelled 148 (130-400) 10^3/cmm Neut % (Auto) 70.4 Cancelled 77.4 % Neut # (Auto) 3.54 Cancelled 4.17 (1.8-7.7) 10^3/uL 03/25/21 Range/Units 04:40 WBC 4.9 (4.0-10.0) 10^3/uL Hgb 8.2 L (11.7-16.6) g/dL Hct 28.4 L (42.0-52.0) % MCV 99.0 H (80-94) fl Plt Count 149 (130-400) 10^3/cmm Neut % (Auto) 70.1 % Neut # (Auto) 3.46 (1.8-7.7) 10^3/uL BMP 03/24/21 03/24/21 03/25/21 07:00 15:35 04:40 Sodium 142 138 142 Potassium 4.5 4.5 4.3 Chloride 105 102 102 Carbon Dioxide 19 L 16 L 23 BUN 64 H 63 H 66 H Creatinine 7.0 H* 7.0 H* 7.2 H* Glucose 106 133 H 99 Calcium 5.8 L* 5.7 L* 5.6 L* Liver Function 03/24/21 03/25/21 Range/Units 15:35 04:40 Total Bilirubin 0.3 0.2 (0.15-1.2) mg/dL AST 12 8 (0-40) U/L ALT 5 < 5 (0-41) U/L Alkaline Phosphatase 74 71 (40-130) IU/L Albumin 3.0 L 3.2 L (3.5-5.2) g/dL Microbiology 03/22/21 12:00 Urine Culture - Final Urine,Clean Catch Cardiac Studies: Echocardiogram 03/22/21
[2021-03-25 10:43] LABS: Calcium 6.3 mg/dL (8.5-10.5)
[2021-03-25 11:17] LABS: Hepatitis C Virus Antibody Non-Reactive (Nonreactive)
--- NOTE | 2021-03-25 11:22 | P.PN_ITS ---
Subjective Subjective: Patient's not particularly conversant, as he is on BiPAP for his acidosis. I had a discussion with Dr. Segura this morning about his worsening renal failure and acidosis. We agree that he will need dialysis sooner than later. I had a long discussion with his daughter, as the patient is not able to be conversant on BiPAP. I informed her that yesterday the patient admitted to me that he was very much in favor of going on dialysis if needs be. I have consulted Dr. Denis and informed him of the situation and he is taking the patient to the OR for dialysis access. Medications: Reviewed: Yes Vitals/I&O/Wt Last Vital Signs Temp 98.6 F 03/25/21 08:00 Pulse 108 H 03/25/21 09:00 Resp 16 03/25/21 08:16 BP 136/79 03/25/21 08:00 Pulse Ox 95 03/25/21 09:00 03/24/21 03/25/21 03/25/21 22:59 06:59 14:59 Intake Total 240 / 1450 445.000 / 1895.000 50 / 50 Output Total 750 / 750 800 / 1550 Balance -510 / 700 -355.000 / 345.000 50 / 50 Physical Exam Narrative: The patient is on BiPAP and is not conversant. His lungs and heart exam are unchanged. He is in no particular distress and does not appear to be in any pain. Urinary Catheter Management: Fox: Cath Placed During This Visit: yes Reason for Continuing Indwelling Catheter: Acute Urinary Retention or Obstruction Urinary Catheter Date of Insertion: 03/21/21 Urinary Catheter Time of Insertion: 22:45 Data : 03/25/21 04:40 03/25/21 04:40 Micro: Microbiology 03/22/21 12:00 Urine Culture - Final Urine,Clean Catch A&P Assessment and plan (1) Neuroendocrine tumor: Status: Chronic (2) Acute renal failure: With hemodialysis pending. I think this will be helpful for him in getting his anasarca and fluid overload down. This will help him to feel better in the short-term. I discussed the case with his daughter at length and she agreed to go ahead with dialysis as per his previous wishes. Dr. Denis was present with me during the conversation. Status: Acute Qualifiers: Acute renal failure type: with acute tubular necrosis Qualified Code(s): N17.0 - Acute kidney failure with tubular necrosis (3) CHF (congestive heart failure): Status: Acute Qualifiers: Heart failure type: combined systolic and diastolic Heart failure chronicity: acute on chronic Qualified Code(s): I50.43 - Acute on chronic combined systolic (congestive) and diastolic (congestive) heart failure Attestations Medical Necessity Statement*: I expect MrDona The patient will need to be here for at least two more midnights Coding Level of Care Code Acute Steam Engineer for [facility] Fwd Diagnoses Neuroendocrine tumor D3A.8 Acute renal failure N17.0 Acute renal failure type: with acute tubular necrosis CHF (congestive heart failure) I50.43 Heart failure type: combined systolic and diastolic Heart failure chronicity: acute on chronic
[2021-03-25] MEDS: lidocaine 1% INJ 20 mL SUBCUT (11:23)
[2021-03-25] MEDS: heparin, porcine 1,000 unit/mL INJ 10 mL 10000 UNIT INJECTION (11:28)
[2021-03-25] MEDS: sodium chloride 0.9% 100 mL Bag XX (11:28)
--- NOTE | 2021-03-25 12:22 | P.OP_ITS ---
Operative Report Date of procedure: March 25, 2021 Pre-op diagnosis: Acute renal failure requiring dialysis access Post-op diagnosis: same Procedure done: 1. Placement of 16 Georgian 23 cm long AshSplit tunneled hemodialysis catheter in the right internal jugular vein 2. Fluoroscopic guidance and interpretation for placement of catheter 3. Ultrasound guidance to access the right internal jugular vein Surgeon: Jr Denis Anesthesia: MAC Estimated blood loss (mL): 10 Condition: stable Disposition: PACU Procedure: The patient was taken to the operating room and placed under MAC after IV antibiotic had been administered. The chest and neck were prepped and draped in a sterile manner bilaterally. An ultrasound of the right internal jugular vein revealed patent flow, no thrombus identified. Using introducer needle the internal jugular vein on the right side was accessed and guidewire passed into the right atrium under fluoroscopy. Under fluoroscopy the location for the dialysis catheter was marked. Using 11 blade a skin incision was extended at the vein access site as well as the previously marked location on the right chest wall. The dialysis catheter was attached to the tunneler and passed subcutaneously, exiting at the venous access site. Serial dilators were passed over the guidewire under fluoroscopy. Finally the dilator peel-away sheath was passed over the guidewire and the inner dilator and guidewire was removed and the dialysis catheter was introduced into the right internal jugular vein as the peel-away sheath was removed. The tip of the catheter was noted to be in the right atrium. Both ports of the catheter romero blood and flushed easily. The catheter was sutured to the skin using 2-0 Prolene and the venous access site was closed with 4-0 Monocryl and Dermabond. A total of 5 mL of 1:10,000 heparin was injected into the 2 ports under dialysis catheter. Fluoroscopic guidance and interpretation for passage of guidewire and dilator and placement of catheter in the right atrium.
--- NOTE | 2021-03-25 12:31 | ANE.PACU2 ---
Inpatient post-anesthesia follow up: Airway intact: Yes Vital signs: Temperature 97.4 F Pulse Rate 100 Respiratory Rate 18 Blood Pressure 121/68 Pulse Oximetry 93 Oxygen Delivery Me thod [ Nasal Cannula Current Rate & Del humble] Oxygen Delivery Me thod BiPAP Oxygen Flow Rate [ Current Rate 3 & Delivery] Oxygen Flow Rate 10 Fraction of Inspir ed Oxygen 40 Hydration adequate: Yes Nausea and vomiting: No Pain level: 2 Mental status: Baseline
[2021-03-25 12:32] LABS: Glucose Point of Care 79 mg/dL (70-110)
--- NOTE | 2021-03-25 13:11 | PC.NURSE ---
Patient was more drowsy this morning then the past 3 days. Patient oxygen demands increased, now on continuos bipap. Patient went down for dialysis line placement very drowsy, bipap setting increased. Patient was transfered to ICU. Report given to PATRICK Thomas, all questions answered at this time. Patient family updated.
[2021-03-25 14:41] LABS: Basophils % 0.9 %; Eosinophils # 0.2 10^3/uL (0.0-0.8); Eosinophils % 3.8 %; Hematocrit 29.3 % (42.0-52.0); Hemoglobin 8.6 g/dL (11.7-16.6); Lymphocytes # 0.4 10^3/uL (0.8-4.8); Lymphocytes % 9.5 %; Mean Corpuscular HGB Conc 29.4 g/dL (30.0-36.0); Mean Corpuscular Hemoglobin 28.9 pg (28.0-34.0); Mean Corpuscular Volume 98.3 fl (80-94); Mean Platelet Volume 11.9 fL (7.4-10.4); Monocytes # 0.3 10^3/uL (0.2-0.9); Monocytes % 7.7 %; Neutrophils # 3.44 10^3/uL (1.8-7.7); Neutrophils % 77.6 %; Nucleated Red Blood Cells % 0 %; Platelet Count 151 10^3/cmm (130-400); Red Blood Count 2.98 10^6/uL (4.1-5.3); Red Cell Distribution Width 15.8 % (12.1-15.1); White Blood Count 4.4 10^3/uL (4.0-10.0)
[2021-03-25 14:54] LABS: Hepatitis B Surface Antigen Non-Reactive (Nonreactive)
[2021-03-25 14:58] LABS: Alanine Aminotransferase < 5 U/L (0-41); Albumin Level 3.2 g/dL (3.5-5.2); Alkaline Phosphatase 68 IU/L (40-130); Anion Gap 21.3 (5-19); Aspartate Amino Transferase 11 U/L (0-40); Blood Urea Nitrogen 74 mg/dL (8-23); Calcium 6.5 mg/dL (8.5-10.5); Carbon Dioxide 21 mmol/L (22-29); Chloride 101 mmol/L (98-107); Globulin 3.7 g/dL (1.3-4.6); Glucose 75 mg/dL (65-115); Osmolality Calculated 309 mOsm/kg (285-295); Potassium 4.3 mmol/L (3.5-5.1); Sodium 139 mmol/L (136-145); Total Bilirubin 0.3 mg/dL (0.15-1.2); Total Protein 6.9 g/dL (6.6-8.7)
[2021-03-25 15:09] LABS: Hepatitis B Surface AB < 3.5 (11.5-1000)
--- NOTE | 2021-03-25 15:09 | PC.NURSE ---
Informed primary n Martha francisco RN of critical Creatinine 7.2, no change in level.
[2021-03-25] MEDS: FUROsemide 100 MG in sodium chloride 0.9% 40 ML IV (15:33)
[2021-03-25 18:22] LABS: Glucose Point of Care 88 mg/dL (70-110)
[2021-03-25] MEDS: insulin glargine 100 units/1 mL 10 UNIT SUBCUT (18:27)
[2021-03-25] MEDS: FUROsemide 10 mg/mL SDV 10mL 60 MG IVP (18:28)
[2021-03-25 20:47] LABS: Glucose Point of Care 83 mg/dL (70-110)
[2021-03-25] MEDS: tamsulosin 0.4 mg Capsule PO (20:47)
[2021-03-25] MEDS: gabapentin 100 mg Capsule PO (20:47)
[2021-03-25] MEDS: duloxetine 20 mg Capsule PO (20:47)
[2021-03-25 20:58] LABS: Vancomycin Trough 5.8 ug/mL (10-15)
[2021-03-25] MEDS: vancomycin 1,000 MG in sodium chloride 0.9% 250 ML 250 MG IV (21:10)
[2021-03-26] VITALS (150 sets, daily range): BP systolic 97–155; BP diastolic 66–127; PULSE 94–117; RESP 9–25; TEMP 36.7–37; O2SAT 92–100
[2021-03-26] MEDS: HYDROcodone-acetaminophen 5-325 mg Tablet 1 TAB PO (02:07)
[2021-03-26] MEDS: lanolin oint 7 gm 1 APPLIC TOPICAL (02:08)
[2021-03-26 03:48] LABS: ABG PCO2 57.1 mmHg (35-45); ABG PH Result 7.25 (7.35-7.45); Arterial Blood Gas Hematocrit 26.9 % (42-52); Base Excess ABG -2.5 mmol/L (-2.0-2.0); Blood Gas Allen Test Pos; Blood Gas Sample Site Radial, left; Blood Gas Sample Type Arterial; Oxygen Device NC; PO2 ABG 94.7 mmHg (80.0-100.0)
[2021-03-26 04:00] LABS: Basophils # 0.1 10^3/uL (0.0-0.1); Basophils % 1.2 %; Eosinophils # 0.2 10^3/uL (0.0-0.8); Eosinophils % 3.8 %; Hematocrit 27.8 % (42.0-52.0); Hemoglobin 8.1 g/dL (11.7-16.6); Lymphocytes # 0.5 10^3/uL (0.8-4.8); Lymphocytes % 11.6 %; Mean Corpuscular HGB Conc 29.1 g/dL (30.0-36.0); Mean Corpuscular Hemoglobin 28.7 pg (28.0-34.0); Mean Corpuscular Volume 98.6 fl (80-94); Mean Platelet Volume 11.1 fL (7.4-10.4); Monocytes # 0.4 10^3/uL (0.2-0.9); Monocytes % 9.5 %; Neutrophils # 3.11 10^3/uL (1.8-7.7); Neutrophils % 73.7 %; Nucleated Red Blood Cells % 0 %; Platelet Count 150 10^3/cmm (130-400); Red Blood Count 2.82 10^6/uL (4.1-5.3); Red Cell Distribution Width 15.7 % (12.1-15.1); White Blood Count 4.2 10^3/uL (4.0-10.0)
[2021-03-26 04:26] LABS: Alanine Aminotransferase < 5 U/L (0-41); Albumin Level 2.8 g/dL (3.5-5.2); Alkaline Phosphatase 67 IU/L (40-130); Blood Urea Nitrogen 50 mg/dL (8-23); Calcium 6.2 mg/dL (8.5-10.5); Carbon Dioxide 21 mmol/L (22-29); Chloride 102 mmol/L (98-107); Globulin 3.5 g/dL (1.3-4.6); Glucose 106 mg/dL (65-115); Magnesium 1.6 mg/dL (1.7-2.3); Osmolality Calculated 306 mOsm/kg (285-295); Sodium 141 mmol/L (136-145); Total Bilirubin 0.3 mg/dL (0.15-1.2); Total Protein 6.3 g/dL (6.6-8.7)
[2021-03-26 04:37] LABS: Anion Gap 22.2 (5-19); Aspartate Amino Transferase 10 U/L (0-40); Potassium 4.2 mmol/L (3.5-5.1)
[2021-03-26 04:40] LABS: Phosphorus 8.2 mg/dL (2.5-4.5)
[2021-03-26 04:57] LABS: Ferritin 333 ng/mL (30-400)
[2021-03-26 05:12] LABS: 25 Hydroxy Vitamin D 22 ng/mL (30-100)
[2021-03-26] MEDS: FUROsemide 100 MG in sodium chloride 0.9% 40 ML IV (05:57)
[2021-03-26] MEDS: heparin 5,000 unit/mL INJ 1 mL 5000 UNIT SUBCUT ×2 (06:05→18:13)
[2021-03-26 06:15] LABS: Glucose Point of Care 115 mg/dL (70-110)
--- NOTE | 2021-03-26 07:37 | PM.PN ---
Subjective Subjective: poor MS. lethargic. awakens, weak, in pain, confused. swollen Medications: Reviewed: Yes Medication Review Details: Current Medications Acetaminophen (Acetaminophen 325 Mg Tablet) 650 mg PO Q6H PRN PRN Reason: Mild/Mod Pain Or Temp >/= 101 Last Admin: 03/24/21 20:45 Dose: 650 mg Documented by: Hydrocodone Bitart/Acetaminophen (Hydrocodone-Acetaminophen 5-325 Mg Tablet) 1 tab PO Q4H PRN PRN Reason: MODERATE TO SEVERE PAIN Last Admin: 03/26/21 02:07 Dose: 1 tab Documented by: Albuterol Sulfate (Albuterol 8 Gm Mdi) 1 puff INHALATION QID PRN PRN Reason: Shortness Of Breath Aspirin (Aspirin 81 Mg Ec Tablet) 81 mg PO DAILY@08 [facility] Last Admin: 03/25/21 08:03 Dose: 81 mg Documented by: Bicalutamide (Bicalutamide 50 Mg Tablet) 50 mg PO DAILY@08 [facility] Last Admin: 03/25/21 08:02 Dose: 50 mg Documented by: Bisacodyl (Bisacodyl 5 Mg Tablet) 10 mg PO DAILY PRN; Protocol PRN Reason: Constipation (see protocol) Clopidogrel Bisulfate (Clopidogrel 75 Mg Tablet) 75 mg PO DAILY@08 [facility] Last Admin: 03/25/21 08:03 Dose: 75 mg Documented by: Cyanocobalamin (Cyanocobalamin 1,000 Mcg/Ml Sdv) 1,000 mcg IM DAILY [facility] Last Admin: 03/25/21 08:02 Dose: 1,000 mcg Documented by: Dextrose (Dextrose 50% Syringe 50 Ml) 25 ml IVP ONCE PRN; Protocol PRN Reason: hypoglycemia protocol Dextrose (Dextrose 50% Syringe 50 Ml) 50 ml IVP PRN PRN; Protocol PRN Reason: hypoglycemia protocol Docusate Sodium (Docusate Sodium 100 Mg Capsule) 100 mg PO BID [facility] Last Admin: 03/25/21 18:28 Dose: 100 mg Documented by: Duloxetine HCl (Duloxetine 20 Mg Capsule) 20 mg PO BEDTIME@20 [facility] Last Admin: 03/25/21 20:47 Dose: 20 mg Documented by: Ferrous Sulfate (Ferrous Sulfate Ec 325 Mg Tablet) 325 mg PO BIDWM [facility] Last Admin: 03/25/21 18:28 Dose: 325 mg Documented by: Fluticasone Propionate (Fluticasone Nasal [place]ra 16gm Btl) 2 spray INTRANASAL DAILY@08 [facility] Last Admin: 03/25/21 08:03 Dose: 2 spray Documented by: Gabapentin (Gabapentin 100 Mg Capsule) 100 mg PO BEDTIME@20 [facility] Last Admin: 03/25/21 20:47 Dose: 100 mg Documented by: Glucagon (Glucagon 1 Mg/Ml Inj 1 Ml) 1 mg IM ONCE PRN; Protocol PRN Reason: Adult Acute Hypoglycemia Prot. Heparin Sodium (Porcine) (Heparin 5,000 Unit/Ml Inj 1 Ml) 5,000 unit SUBCUT Q12H [facility] Last Admin: 03/26/21 06:05 Dose: 5,000 unit Documented by: Dextrose (D5w) 500 mls @ 100 mls/hr IV ONCE PRN; Protocol PRN Reason: Adult Acute Hypoglycemia Prot Levofloxacin/Dextrose (Levaquin-D5w) 250 mg in 50 mls @ 50 mls/hr IV Q48H [facility]; Protocol Last Infusion: 03/24/21 11:17 Dose: Infused Documented by: Furosemide 100 mg/ Sodium (Chloride) 50 mls @ 2.5 mls/hr IV .Q20H [facility] Last Admin: 03/26/21 05:57 Dose: 5 mg/hr, 2.5 mls/hr Documented by: Vancomycin HCl 1,000 mg/ (Sodium Chloride) 250 mls @ 250 mls/hr IV DIALYSIS [facility] Insulin Glargine (Insulin Glargine 100 Units/1 Ml) 10 unit SUBCUT BID@06,18 [facility] Last Admin: 03/26/21 06:12 Dose: Not Given Documented by: Insulin Human Lispro (Insulin Lispro 100 Unit/1 Ml) 0 unit SUBCUT BEDTIME [facility]; Protocol Last Admin: 03/25/21 20:53 Dose: Not Given Documented by: Insulin Human Lispro (Insulin Lispro 100 Unit/1 Ml) 0 unit SUBCUT TIDWM [facility]; Protocol Last Admin: 03/25/21 18:28 Dose: Not Given Documented by: Isosorbide Mononitrate (Isosorbide Mononitrate Er 30 Mg Tablet) 90 mg PO DAILY@08 [facility] Last Admin: 03/25/21 08:02 Dose: 90 mg Documented by: Lanolin (Lanolin Oint 7 Gm) 1 applic TOPICAL PRN PRN PRN Reason: DRYNESS Last Admin: 03/26/21 02:08 Dose: 1 applic Documented by: Metolazone (Metolazone 5 Mg Tablet) 10 mg PO DAILY [facility] Last Admin: 03/25/21 08:02 Dose: 10 mg Documented by: Nitroglycerin (Nitroglycerin 0.4 Mg Sublingual Tablet) 0.4 mg SUBLINGUAL Q5M PRN PRN Reason: Chest Pain Nystatin (Nystatin Powder 15 Gm Btl) 1 applic TOPICAL BID [facility] Last Admin: 03/25/21 18:27 Dose: 1 applic Documented by: Ondansetron HCl (Ondansetron 4 Mg Tablet) 4 mg PO Q8H PRN PRN Reason: NAUSEA AND VOMITING Pantoprazole Sodium (Pantoprazole Dr 40 Mg Tablet) 40 mg PO DAILY [facility] Last Admin: 03/25/21 08:02 Dose: 40 mg Documented by: Tamsulosin HCl (Tamsulosin 0.4 Mg Capsule) 0.4 mg PO BEDTIME@20 [facility] Last Admin: 03/25/21 20:47 Dose: 0.4 mg Documented by: Vitamin D (Cholecalciferol (Vitamin D3) 1,000 Unit Tablet) 1,000 unit PO DAILY@08 [facility] Last Admin: 03/25/21 08:02 Dose: 1,000 unit Documented by: Vitals/I&O/Wt Last Vital Signs Temp 98.0 F 03/26/21 06:17 Pulse 99 03/26/21 06:15 Resp 12 03/26/21 06:15 BP 101/69 03/26/21 06:15 Pulse Ox 95 03/26/21 06:15 03/25/21 03/26/21 03/26/21 22:59 06:59 14:59 Intake Total 336 / 486 Output Total 1200 / 1225 / 5 Balance -1200 / -1075 -464 / -1539 Physical Exam Narrative: anasarca, lethargic, weak vs noted heent- nc/at, eomi, anicteric neck obese lungs crackles on left and rt base. clear rt upper lungs heart reg, +SHANNON abd soft, nt, distended, ascites ext b/l edema neuro- lethargic, confused Urinary Catheter Management: Fox: Cath Placed During This Visit: yes Reason for Continuing Indwelling Catheter: Accurate Measurement of Urinary Output in Critically Ill Patients Urinary Catheter Date of Insertion: 03/21/21 Urinary Catheter Time of Insertion: 22:45 Data : 03/26/21 03:40 03/26/21 03:40 A&P Assessment and plan (1) Acute renal failure: see below Status: Acute Qualifiers: Acute renal failure type: with acute tubular necrosis Qualified Code(s): N17.0 - Acute kidney failure with tubular necrosis Plan 81 yr old man 1. CKD stage 4 - cRS, obesity, dm, htn. h/o prostate ca on flomax and casodex 2. EFREN- CRS-s/p dialysis yesterday -repeat HD for fluid removal 3. lethargy- hypercapneic resp acidosis- cont bipap 4. echo- moderate MR, TR, EF 45% and grade 2/4 diastolic dysfunction 5. 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 Has been treated with regular Sandostatin and follows with Dr. Allen.? Also noted has been bilateral renal masses that were indeterminate. 6. DM right foot ulcer - monitor vanco levels 6b. dm control- no jackelyn-i/ arb, metformin, sglt2-i, sulfinylureas w/ efren on ckd 7. anemia- tsat 30%, ferritin 333- po iron 8. hyperuricemia- allopurinol 100 d 9. hypocalcemia- pth 367- calcitriol, vit d repletion 10. hyperphosphatemia- binders and dialysis 11. replete magnesium seen and examined w/ rn- telehealth visit- time spent 30 min Attestations Medical Necessity Statement*: efren, hypercapneic resp acidosis Time Spent in Patient Care: 16 - 35 minutes (>than 50% of time spent in counselling and/or direct pt care on unit). 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
[2021-03-26] MEDS: calcium acetate 667 mg Capsule 1334 MG PO ×3 (07:54→18:12)
[2021-03-26] MEDS: clopidogrel 75 mg Tablet PO (07:55)
[2021-03-26] MEDS: ferrous sulfate EC 325 mg Tablet PO ×2 (07:55→18:12)
[2021-03-26] MEDS: docusate sodium 100 mg Capsule PO ×2 (07:55→18:12)
[2021-03-26] MEDS: isosorbide mononitrate ER 30 mg Tablet 90 MG PO (07:55)
[2021-03-26] MEDS: cyanocobalamin 1,000 mcg/mL SDV 1000 MCG IM (07:56)
[2021-03-26] MEDS: aspirin 81 mg EC Tablet PO (07:56)
[2021-03-26] MEDS: pantoprazole DR 40 mg Tablet PO (07:56)
[2021-03-26] MEDS: nystatin powder 15 gm Btl 1 APPLIC TOPICAL ×2 (07:58→18:13)
[2021-03-26] MEDS: fluticasone nasal spray 16gm Btl 2 SPRAY INTRANASAL (07:59)
[2021-03-26] MEDS: ergocalciferol (vitamin D2) 50,000 Unit Capsule 50000 UNIT PO (07:59)
[2021-03-26] MEDS: levofloxacin-dextrose 5% 250 MG/50 ML PREMIX 50 MG IV (08:03)
[2021-03-26] MEDS: allopurinol 100 mg Tablet PO (08:17)
--- NOTE | 2021-03-26 09:00 | P.PN_ITS ---
Subjective Subjective: Events of this weekend were noted. He has received 1 dialysis treatment yesterday. Nephrology is evaluating today. Patient reports he feels little bit better, less swollen. Medications: Reviewed: Yes Vitals/I&O/Wt Last Vital Signs Temp 98.0 F 03/26/21 06:17 Pulse 100 03/26/21 08:09 Resp 12 03/26/21 06:15 BP 101/69 03/26/21 06:15 Pulse Ox 97 03/26/21 08:09 03/25/21 03/26/21 03/26/21 22:59 06:59 14:59 Intake Total 336 / 486 Output Total 1200 / 1225 800 / 5 Balance -1200 / -1075 -464 / -1539 Physical Exam Narrative: General exam anasarca slightly improved Neck is supple Cardiovascular regular rate rhythm, heart sounds distant Lungs diminished breath sounds at the bases Abdomen is obese, abdominal wall edema noted Extremities 3+ edema no cyanosis or clubbing. Urinary Catheter Management: Fox: Cath Placed During This Visit: yes Reason for Continuing Indwelling Catheter: Accurate Measurement of Urinary Output in Critically Ill Patients Urinary Catheter Date of Insertion: 03/21/21 Urinary Catheter Time of Insertion: 22:45 Data : 03/26/21 03:40 03/26/21 03:40 A&P Assessment and plan (1) Acute renal failure: Severe acute kidney injury, superimposed on chronic renal failure. Marked hyperkalemia has improved significantly with dialysis and diuresis Appreciate nephrology consultation Lasix drip discontinued by nephrology. Fluid removal will occur by dialysis. Fox was placed for urinary retention at beginning of hospital stay. This did not help renal function substantially. It is likely Fox will need to be continued at discharge. Avoid renal toxic medication. 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 Nephrology following for the need for repeat dialysis Oxygen as needed. He also has some CO2 retention and he is to wear BiPAP as tolerated as well. Echocardiogram demonstrated ejection fraction 45 to 50%, mild aortic stenosis, trace aortic regurgitation, mild to moderate mitral regurgitation and moderate tricuspid regurgitation. This was unchanged from previous echocardiograms. Status: Acute Qualifiers: Heart failure type: combined systolic and diastolic Heart failure chronicity: acute on chronic Qualified Code(s): I50.43 - Acute on chronic combined systolic (congestive) and diastolic (congestive) heart failure (3) Coronary disease: With intermittent chest pain that is somewhat atypical Chronically on aspirin, Plavix, isosorbide. We will continue Metoprolol was stopped sometime in the last few months due to hypotension Troponin elevated, but no significant delta. Status: Chronic Qualifiers: Associated angina: without angina Coronary Disease-Associated Artery/Lesion type: [place] artery [place] vs. transplanted heart: [place] heart Qualified Code(s): I25.10 - Atherosclerotic heart disease of [place] coronary artery without angina pectoris (4) Insulin dependent diabetes mellitus: Recent hemoglobin A1c 7.5, has associated peripheral neuropathy Chronically on twice daily Lantus and 3 times daily NovoLog Glucose somewhat low in the mornings. Reduce Lantus to once daily. Takes gabapentin for neuropathy Status: Acute (5) Hypertension: Currently controlled Status: Chronic Qualifiers: Hypertension type: primary hypertension Qualified Code(s): I10 - Essential (primary) hypertension (6) Neuroendocrine tumor: Stage IV, 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 Has been treated with regular Sandostatin and follows with Dr. Allen. Also noted has been bilateral renal masses that were indeterminate Status: Chronic (7) Prostate cancer: Chronically on Casodex and Flomax Status: Chronic (8) Iron deficiency anemia: Secondary to chronic kidney disease. Stable currently Status: Chronic Qualifiers: Iron deficiency anemia type: unspecified iron deficiency Qualified Code(s): D50.9 - Iron deficiency anemia, unspecified (9) Diabetic ulcer of right foot: Betadine paint to right foot and heel, open to air in bed and covered when up Had been going to wound care clinic until 01/2021 Status: Chronic Qualifiers: Diabetic foot ulcer location: heel Diabetes mellitus type: due to underlying condition Non-pressure ulcer stage: limited to breakdown of skin Qualified Code(s): E08.621 - Diabetes mellitus due to underlying condition with foot ulcer; L97.411 - Non-pressure chronic ulcer of right heel and midfoot limited to breakdown of skin (10) Peripheral vascular disease: With extensive stasis changes including some desquamating erythematous skin, has compression dressings Cannot rule out some underlying cellulitis. Placed on vancomycin. Continue currently. Status: Chronic (11) Degenerative lumbar spinal stenosis: With chronic back pain, history of L5 vertebral fracture Status: Acute (12) Morbid obesity: Status: Chronic Plan Possible pneumonia. Continue Levaquin, vancomycin Hypomagnesemia, supplement. Nephrology is ordered. Full code currently Prognosis guarded Heparin for DVT prophylaxis Attestations Medical Necessity Statement*: Needs continued hospitalization for close monitoring and management of severe acute renal failure requiring dialysis and Lasix drip. Coding Level of Care Code Acute Silver Chaser for [facility] Diagnoses Acute renal failure N17.0 Acute renal failure type: with acute tubular necrosis CHF (congestive heart failure) I50.43 Heart failure type: combined systolic and diastolic Heart failure chronicity: acute on chronic Coronary disease I25.10 Associated angina: without angina Coronary Disease-Associated Artery/Lesion type: [place] artery [place] vs. transplanted heart: [place] heart Insulin dependent diabetes mellitus E11.9; Z79.4 Hypertension I10 Hypertension type: primary hypertension Neuroendocrine tumor D3A.8 Prostate cancer C61 Iron deficiency anemia D50.9 Iron deficiency anemia type: unspecified iron deficiency Diabetic ulcer of right foot E08.621; L97.411 Diabetic foot ulcer location: heel Diabetes mellitus type: due to underlying condition Non-pressure ulcer stage: limited to breakdown of skin Peripheral vascular disease I73.9 Degenerative lumbar spinal stenosis M48.061 Morbid obesity E66.01
[2021-03-26 09:15] LABS: Vancomycin Random 9.7 ug/mL (20.0-40.0)
--- NOTE | 2021-03-26 10:11 | PC.CHAP ---
Pastoral Care Encounter/Spiritual Assessment Type of Contact [] Declined international relations professor visit [] Patient/Family/Request visit [] Outpatient visit [] Follow-up visit [] Physician referral [] Code/Alert [x] Routine visit [] Staff referral [] Actively dying [x] Patient sleeping [] Family support [] [] Out of room [] Palliative care [] [] Receiving care in room [] Pre-surgical visit [] Trauma [] Long length of stay [x] ICU visit [x] Other: on oxg Relational/Emotional Strength [] Patient feels connected with others/family/visitors/staff [] Distress [] Loneliness/isolation [] Abandonment Spirituality of Patient [] Person of Maribel [] Attends Anglican of their [place] [] Believes in Prayer [] Reads Bible or Pentecostal materials [] There are Spiritual issues to be addressed Administrative Intern Interventions [x] Prayer [] Active listening [] Non-anxious presence [] Spiritual/emotional support [] Crisis/trauma care [] Spiritual counseling [] Bereavement support [] Provided bereavement packet [] Provided Bible/devotional materials [] Provided toy/stuffed animal, coloring book to patient or family member [] Provided Communion [] Anointing/[place] [] Salvation [x] Completed spiritual assessment [] Other: Impact on Illness or Injury [] Angry [] Fearful [] Anxious [] Often cries [] Exhaustion [] Unable to work [] Unable to attend zoroastrianism [] Unable to walk/stand [] Unable to read [] Unable to drive [] Unable to eat/drink [] Unable to sleep [] Unable to be with family [] Patient intubated [] Other: Summary Time spent with patient
--- NOTE | 2021-03-26 10:30 | PM.PN ---
Subjective Subjective: Patient received dialysis yesterday, tolerated it well Medications: Reviewed: Yes Vitals/I&O/Wt Last Vital Signs Temp 98.5 F 03/26/21 08:15 Pulse 98 03/26/21 09:01 Resp 21 H 03/26/21 09:01 BP 125/72 03/26/21 09:01 Pulse Ox 97 03/26/21 09:01 03/25/21 03/26/21 03/26/21 22:59 06:59 14:59 Intake Total 336 / 486 102 / 102 Output Total 1199 / 5 800 / 2024 Balance -1200 / -1539 -464 / -1539 102 / 102 Physical Exam Narrative: Right neck: Tunneled IJ hemodialysis catheter in place, dressings dry and intact Urinary Catheter Management: Fox: Cath Placed During This Visit: yes Reason for Continuing Indwelling Catheter: Accurate Measurement of Urinary Output in Critically Ill Patients Urinary Catheter Date of Insertion: 03/21/21 Urinary Catheter Time of Insertion: 22:45 Data : 03/26/21 03:40 03/26/21 03:40 A&P Assessment and plan (1) S/P hemodialysis catheter insertion: Catheter is functioning well, patient tolerated dialysis yesterday Status: Acute Attestations Medical Necessity Statement*: Per primary Coding Level of Care Code Acute Research Quality Assurance Specialist for [facility] [place] Diagnoses S/P hemodialysis catheter insertion Z99.2
[2021-03-26 11:23] LABS: Glucose Point of Care 103 mg/dL (70-110)
--- NOTE | 2021-03-26 16:17 | PC.SOCIAL ---
IMM update IMM updated with patient's daughter. Verbalized an understanding. Initialled, dated, timed, and placed in chart.
[2021-03-26] MEDS: insulin lispro 100 unit/1 mL SUBCUT (18:13)
[2021-03-26] MEDS: acetaminophen 325 mg Tablet 650 MG PO (18:15)
[2021-03-26 20:00] LABS: Glucose Point of Care 154 mg/dL (70-110)
[2021-03-26 20:55] LABS: Glucose Point of Care 118 mg/dL (70-110)
[2021-03-26] MEDS: vancomycin 1,000 MG in sodium chloride 0.9% 250 ML 250 MG IV (21:08)
[2021-03-26] MEDS: duloxetine 20 mg Capsule PO (21:11)
[2021-03-26] MEDS: gabapentin 100 mg Capsule PO (21:11)
[2021-03-26] MEDS: tamsulosin 0.4 mg Capsule PO (21:11)
[2021-03-27] VITALS (60 sets, daily range): BP systolic 111–157; BP diastolic 71–99; PULSE 93–118; RESP 7–35; TEMP 36.4–37.1; O2SAT 86–99
[2021-03-27] MEDS: acetaminophen 325 mg Tablet 650 MG PO ×2 (00:53→20:31)
[2021-03-27 03:56] LABS: Basophils # 0.1 10^3/uL (0.0-0.1); Basophils % 1.1 %; Eosinophils # 0.3 10^3/uL (0.0-0.8); Eosinophils % 6.4 %; Hematocrit 27.3 % (42.0-52.0); Hemoglobin 8.2 g/dL (11.7-16.6); Lymphocytes # 0.5 10^3/uL (0.8-4.8); Lymphocytes % 11.5 %; Mean Corpuscular Hemoglobin 29.3 pg (28.0-34.0); Mean Corpuscular Volume 97.5 fl (80-94); Mean Platelet Volume 11.6 fL (7.4-10.4); Monocytes # 0.5 10^3/uL (0.2-0.9); Monocytes % 10.6 %; Neutrophils # 3.17 10^3/uL (1.8-7.7); Nucleated Red Blood Cells % 0 %; Platelet Count 149 10^3/cmm (130-400); Red Cell Distribution Width 15.8 % (12.1-15.1); White Blood Count 4.5 10^3/uL (4.0-10.0)
[2021-03-27 04:25] LABS: Alanine Aminotransferase < 5 U/L (0-41); Albumin Level 3.1 g/dL (3.5-5.2); Alkaline Phosphatase 58 IU/L (40-130); Anion Gap 18.7 (5-19); Aspartate Amino Transferase 9 U/L (0-40); Blood Urea Nitrogen 32 mg/dL (8-23); Calcium 6.5 mg/dL (8.5-10.5); Carbon Dioxide 26 mmol/L (22-29); Chloride 99 mmol/L (98-107); Globulin 3.1 g/dL (1.3-4.6); Glucose 134 mg/dL (65-115); Magnesium 1.6 mg/dL (1.7-2.3); Osmolality Calculated 299 mOsm/kg (285-295); Phosphorus 5.6 mg/dL (2.5-4.5); Potassium 3.7 mmol/L (3.5-5.1); Sodium 140 mmol/L (136-145); Total Bilirubin 0.2 mg/dL (0.15-1.2); Total Protein 6.2 g/dL (6.6-8.7); Uric Acid 4.7 mg/dL (3.4-7.0)
[2021-03-27] MEDS: heparin 5,000 unit/mL INJ 1 mL 5000 UNIT SUBCUT ×2 (06:06→18:28)
--- NOTE | 2021-03-27 07:28 | P.PN_ITS ---
Subjective Subjective: Marco Antonio awakens easily. Reports he does not feel short of breath. No chest discomfort. Underwent dialysis yesterday and approximately 2 L removed. Medications: Reviewed: Yes Vitals/I&O/Wt Last Vital Signs Temp 98.7 F 03/27/21 04:00 Pulse 101 H 03/27/21 06:31 Resp 15 03/27/21 06:31 BP 131/92 03/27/21 06:31 Pulse Ox 94 03/27/21 06:31 03/26/21 03/27/21 03/27/21 22:59 06:59 14:59 Intake Total 220 / 565.875 530 / 1095.875 Output Total 1300 / 1300 875 / 2175 Balance -1080 / -734.125 -345 / -1079.125 Physical Exam Narrative: General exam anasarca slightly improved Neck is supple Cardiovascular regular rate rhythm, heart sounds distant Lungs diminished breath sounds at the bases Abdomen is obese, abdominal wall edema noted Extremities 3+ edema no cyanosis or clubbing. Urinary Catheter Management: Fox: Cath Placed During This Visit: yes Reason for Continuing Indwelling Catheter: Accurate Measurement of Urinary Output in Critically Ill Patients Urinary Catheter Date of Insertion: 03/21/21 Urinary Catheter Time of Insertion: 22:45 Data : 03/27/21 03:39 03/27/21 03:39 Micro: Microbiology 03/21/21 12:10 Blood Culture - Final Blood NO GROWTH AFTER 5 DAYS 03/21/21 12:10 Blood Culture - Final Blood NO GROWTH AFTER 5 DAYS A&P Assessment and plan (1) Acute renal failure: Severe acute kidney injury, superimposed on chronic renal failure. Marked hyperkalemia has improved significantly with dialysis and diuresis Appreciate nephrology consultation Lasix drip and Zaroxolyn was not effective. Fox was placed for urinary retention at beginning of hospital stay. This did not help renal function substantially. It is likely Fox will need to be continued at discharge. Avoid renal toxic medication. He did receive dialysis again yesterday. Status: Acute (2) CHF (congestive heart failure): Combined systolic and diastolic, EF 45 to 50% on last echocardiogram Chronically on torsemid, no noted recent dosage changes Chest x-ray with bilateral small effusions Oxygen as needed. He also has some CO2 retention and he is to wear BiPAP as tolerated as well. Echocardiogram demonstrated ejection fraction 45 to 50%, mild aortic stenosis, trace aortic regurgitation, mild to moderate mitral regurgitation and moderate tricuspid regurgitation. This was unchanged from previous echocardiograms. This appears to be coming better compensated with dialysis and ultrafiltration. Status: Acute (3) Coronary disease: With intermittent chest pain that is somewhat atypical Chronically on aspirin, Plavix, isosorbide. We will continue Metoprolol was stopped sometime in the last few months due to hypotension Troponin elevated, but no significant delta. Status: Chronic (4) Insulin dependent diabetes mellitus: Recent hemoglobin A1c 7.5, has associated peripheral neuropathy Chronically on twice daily Lantus and 3 times daily NovoLog Glucose somewhat low in the mornings. Reduce Lantus to once daily. Takes gabapentin for neuropathy Lantus dose has been reduced secondary to his renal dysfunction. 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 Has been treated with regular Sandostatin and follows with Dr. Allen. Also noted has been bilateral renal masses that were indeterminate Status: Chronic (7) Prostate cancer: Chronically on Casodex and Flomax Status: Chronic (8) Iron deficiency anemia: Secondary to chronic kidney disease. Stable currently Status: Chronic (9) Diabetic ulcer of right foot: Betadine paint to right foot and heel, open to air in bed and covered when up Had been going to wound care clinic until 01/2021 Status: Chronic (10) Peripheral vascular disease: With extensive stasis changes including some desquamating erythematous skin, has compression dressings Cannot rule out some underlying cellulitis. Placed on vancomycin. Continue currently. Status: Chronic (11) Degenerative lumbar spinal stenosis: With chronic back pain, history of L5 vertebral fracture Status: Acute (12) Morbid obesity: Status: Chronic Plan Possible pneumonia. Continue Levaquin, vancomycin. He is around day 8. Likely discontinue after tomorrow's dosing. Hypomagnesemia, supplement. Supplemented today Full code currently Heparin for DVT prophylaxis May transfer out of ICU. Attestations Medical Necessity Statement*: Needs continued hospitalization for further dialysis secondary to significant volume overload with acute kidney injury and CHF. Coding Level of Care Code Acute [employer] for [facility] Diagnoses Acute renal failure N17.9 CHF (congestive heart failure) I50.9 Coronary disease I25.10 Insulin dependent diabetes mellitus E11.9; Z79.4 Hypertension I10 Neuroendocrine tumor D3A.8 Prostate cancer C61 Iron deficiency anemia D50.9 Diabetic ulcer of right foot E11.621; L97.519 Peripheral vascular disease I73.9 Degenerative lumbar spinal stenosis M48.061 Morbid obesity E66.01
--- NOTE | 2021-03-27 07:34 | PM.PN ---
Subjective Subjective: more awake, less sob. still swollen. s/p HD last 2 days Medications: Reviewed: Yes Medication Review Details: Current Medications Acetaminophen (Acetaminophen 325 Mg Tablet) 650 mg PO Q6H PRN PRN Reason: Mild/Mod Pain Or Temp >/= 101 Last Admin: 03/27/21 00:53 Dose: 650 mg Documented by: Albuterol Sulfate (Albuterol 8 Gm Mdi) 1 puff INHALATION QID PRN PRN Reason: Shortness Of Breath Allopurinol (Allopurinol 100 Mg Tablet) 100 mg PO DAILY [facility] Last Admin: 03/26/21 08:17 Dose: 100 mg Documented by: Aspirin (Aspirin 81 Mg Ec Tablet) 81 mg PO DAILY@08 [facility] Last Admin: 03/26/21 07:56 Dose: 81 mg Documented by: Bicalutamide (Bicalutamide 50 Mg Tablet) 50 mg PO DAILY@08 [facility] Last Admin: 03/26/21 07:58 Dose: 50 mg Documented by: Bisacodyl (Bisacodyl 5 Mg Tablet) 10 mg PO DAILY PRN; Protocol PRN Reason: Constipation (see protocol) Calcium Acetate (Calcium Acetate 667 Mg Capsule) 1,334 mg PO TIDWM [facility] Last Admin: 03/26/21 18:12 Dose: 1,334 mg Documented by: Clopidogrel Bisulfate (Clopidogrel 75 Mg Tablet) 75 mg PO DAILY@08 [facility] Last Admin: 03/26/21 07:55 Dose: 75 mg Documented by: Cyanocobalamin (Cyanocobalamin 1,000 Mcg/Ml Sdv) 1,000 mcg IM DAILY [facility] Last Admin: 03/26/21 07:56 Dose: 1,000 mcg Documented by: Dextrose (Dextrose 50% Syringe 50 Ml) 25 ml IVP ONCE PRN; Protocol PRN Reason: hypoglycemia protocol Dextrose (Dextrose 50% Syringe 50 Ml) 50 ml IVP PRN PRN; Protocol PRN Reason: hypoglycemia protocol Docusate Sodium (Docusate Sodium 100 Mg Capsule) 100 mg PO BID [facility] Last Admin: 03/26/21 18:12 Dose: 100 mg Documented by: Duloxetine HCl (Duloxetine 20 Mg Capsule) 20 mg PO BEDTIME@20 [facility] Last Admin: 03/26/21 21:11 Dose: 20 mg Documented by: Ergocalciferol (Ergocalciferol (Vitamin D2) 50,000 Unit Capsule) 50,000 unit PO Q7D [facility] Last Admin: 03/26/21 07:59 Dose: 50,000 unit Documented by: Ferrous Sulfate (Ferrous Sulfate Ec 325 Mg Tablet) 325 mg PO BIDWM [facility] Last Admin: 03/26/21 18:12 Dose: 325 mg Documented by: Fluticasone Propionate (Fluticasone Nasal [place] 16gm Btl) 2 spray INTRANASAL DAILY@08 [facility] Last Admin: 03/26/21 07:59 Dose: 2 spray Documented by: Furosemide (Furosemide 10 Mg/Ml Sdv 10ml) 60 mg IVP Q12H [place] Gabapentin (Gabapentin 100 Mg Capsule) 100 mg PO BEDTIME@20 [facility] Last Admin: 03/26/21 21:11 Dose: 100 mg Documented by: Glucagon (Glucagon 1 Mg/Ml Inj 1 Ml) 1 mg IM ONCE PRN; Protocol PRN Reason: Adult Acute Hypoglycemia Prot. Heparin Sodium (Porcine) (Heparin 5,000 Unit/Ml Inj 1 Ml) 5,000 unit SUBCUT Q12H [facility] Last Admin: 03/27/21 06:06 Dose: 5,000 unit Documented by: Dextrose (D5w) 500 mls @ 100 mls/hr IV ONCE PRN; Protocol PRN Reason: Adult Acute Hypoglycemia Prot Levofloxacin/Dextrose (Levaquin-D5w) 250 mg in 50 mls @ 50 mls/hr IV Q48H [facility]; Protocol Last Infusion: 03/26/21 09:03 Dose: Infused Documented by: Vancomycin HCl 1,000 mg/ (Sodium Chloride) 250 mls @ 250 mls/hr IV DIALYSIS [facility] Last Infusion: 03/26/21 23:18 Dose: Infused Documented by: Albumin Human (Albumin) 12.5 gm in 50 mls @ 60 mls/hr IV PRN PRN PRN Reason: Hypotension and/or symptomatic Insulin Glargine (Insulin Glargine 100 Units/1 Ml) 10 unit SUBCUT DAILY [facility] Insulin Human Lispro (Insulin Lispro 100 Unit/1 Ml) 0 unit SUBCUT BEDTIME [facility]; Protocol Last Admin: 03/26/21 20:56 Dose: Not Given Documented by: Insulin Human Lispro (Insulin Lispro 100 Unit/1 Ml) 0 unit SUBCUT TIDWM [facility]; Protocol Last Admin: 03/26/21 18:13 Dose: 4 unit Documented by: Isosorbide Mononitrate (Isosorbide Mononitrate Er 30 Mg Tablet) 90 mg PO DAILY@08 [facility] Last Admin: 03/26/21 07:55 Dose: 90 mg Documented by: Lanolin (Lanolin Oint 7 Gm) 1 applic TOPICAL PRN PRN PRN Reason: DRYNESS Last Admin: 03/26/21 02:08 Dose: 1 applic Documented by: Nitroglycerin (Nitroglycerin 0.4 Mg Sublingual Tablet) 0.4 mg SUBLINGUAL Q5M PRN PRN Reason: Chest Pain Nystatin (Nystatin Powder 15 Gm Btl) 1 applic TOPICAL BID [facility] Last Admin: 03/26/21 18:13 Dose: 1 applic Documented by: Ondansetron HCl (Ondansetron 4 Mg Tablet) 4 mg PO Q8H PRN PRN Reason: NAUSEA AND VOMITING Pantoprazole Sodium (Pantoprazole Dr 40 Mg Tablet) 40 mg PO DAILY [facility] Last Admin: 03/26/21 07:56 Dose: 40 mg Documented by: Tamsulosin HCl (Tamsulosin 0.4 Mg Capsule) 0.4 mg PO BEDTIME@20 [facility] Last Admin: 03/26/21 21:11 Dose: 0.4 mg Documented by: Vitals/I&O/Wt Last Vital Signs Temp 98.7 F 03/27/21 04:00 Pulse 101 H 03/27/21 06:31 Resp 15 03/27/21 06:31 BP 131/92 03/27/21 06:31 Pulse Ox 94 03/27/21 06:31 03/26/21 03/27/21 03/27/21 22:59 06:59 14:59 Intake Total 220 / 565.875 530 / 1095.875 Output Total 1300 / 1300 875 / 2175 Balance -1080 / -734.125 -345 / -1079.125 Physical Exam Narrative: anasarca, comfortable in bed, NARD vs noted heent- nc/at, eomi, anicteric neck obese lungs- dec b/l crackles heart reg, +SHANNON abd soft, nt, distended, ascites ext b/l edema neuro- a.a. o x 2, more awake Urinary Catheter Management: Fox: Cath Placed During This Visit: yes Reason for Continuing Indwelling Catheter: Accurate Measurement of Urinary Output in Critically Ill Patients Urinary Catheter Date of Insertion: 03/21/21 Urinary Catheter Time of Insertion: 22:45 Data : 03/27/21 03:39 03/27/21 03:39 Micro: Microbiology 03/21/21 12:10 Blood Culture - Final Blood NO GROWTH AFTER 5 DAYS 03/21/21 12:10 Blood Culture - Final Blood NO GROWTH AFTER 5 DAYS A&P Assessment and plan (1) Acute renal failure: see below Status: Acute Plan 81 yr old man 1. CKD stage 4 - cRS, obesity, dm, htn. h/o prostate ca on flomax and casodex 2. EFREN- CRS-s/p dialysis x 2 -will hold HD today and give lasix -assess in am for further HD -phos improvrd- use binder w/ meals 3. hypercapneic resp acidosis- bipap per medcine 4. echo- moderate MR, TR, EF 45% and grade 2/4 diastolic dysfunction 5. 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 Has been treated with regular Sandostatin and follows with Dr. Allen.? Also noted has been bilateral renal masses that were indeterminate. 6. DM right foot ulcer - monitor vanco levels 6b. dm control- no jackelyn-i/ arb, metformin, sglt2-i, sulfinylureas w/ efren on ckd 7. anemia- tsat 30%, ferritin 333- po iron - hgb stable 8. hyperuricemia- allopurinol 100 d 9. hypocalcemia- pth 367- calcitriol, vit d repletion 10. hypomagneseimia- replete seen and examined w/ rn- telehealth visi t- time spent 30 min Attestations Medical Necessity Statement*: efren on ckd, hypercapneic resp acidossi Time Spent in Patient Care: 16 - 35 minutes (>than 50% of time spent in counselling and/or direct pt care on unit). Coding Level of Care Code Acute [employer] for [facility] Diagnoses Acute renal failure N17.9
[2021-03-27] MEDS: aspirin 81 mg EC Tablet PO (07:44)
[2021-03-27] MEDS: clopidogrel 75 mg Tablet PO (07:45)
[2021-03-27] MEDS: ferrous sulfate EC 325 mg Tablet PO ×2 (07:45→18:37)
[2021-03-27] MEDS: isosorbide mononitrate ER 30 mg Tablet 90 MG PO (07:45)
[2021-03-27] MEDS: fluticasone nasal spray 16gm Btl 2 SPRAY INTRANASAL (07:46)
[2021-03-27] MEDS: FUROsemide 10 mg/mL SDV 10mL 60 MG IVP ×2 (07:46→20:33)
[2021-03-27] MEDS: calcium acetate 667 mg Capsule 1334 MG PO ×3 (07:46→18:36)
[2021-03-27 07:56] LABS: Glucose Point of Care 137 mg/dL (70-110)
[2021-03-27] MEDS: insulin glargine 100 units/1 mL 10 UNIT SUBCUT (09:16)
[2021-03-27] MEDS: pantoprazole DR 40 mg Tablet PO (09:16)
[2021-03-27] MEDS: docusate sodium 100 mg Capsule PO ×2 (09:16→18:37)
[2021-03-27] MEDS: allopurinol 100 mg Tablet PO (09:16)
[2021-03-27] MEDS: cyanocobalamin 1,000 mcg/mL SDV 1000 MCG IM (09:16)
[2021-03-27] MEDS: nystatin powder 15 gm Btl 1 APPLIC TOPICAL ×2 (10:23→18:36)
[2021-03-27 11:00] LABS: ABG PH Result 7.19 (7.35-7.45); Arterial Blood Gas Hematocrit 26.1 % (42-52); Base Excess ABG -4.6 mmol/L (-2.0-2.0); Blood Gas Allen Test Pos; Blood Gas Sample Site Radial, right; Blood Gas Sample Type Arterial; Carboxyhemoglobin 1.3 %THgb (0.4-20.1); HCO3 ABG 23.8 mmol/L (22-26); HGB O2 Sat 93.2 % (95-100); Ionized Calcium Level - ABG 0.9 mmol/L (1.1-1.4); Methemoglobin 1.1 % (0.4-1.5); Oxygen Device NC; Oxygen Saturation ABG 95.5; PO2 ABG 85.7 mmHg (80.0-100.0); Potassium Level - ABG 4.2 mmol/L (3.5-5.0); Total Hemoglobin 8.5 g/dL (14-18)
[2021-03-27 12:28] LABS: Glucose Point of Care 165 mg/dL (70-110)
[2021-03-27] MEDS: insulin lispro 100 unit/1 mL SUBCUT ×3 (12:28→22:05)
--- NOTE | 2021-03-27 15:14 | PC.NURSE ---
At 1458 patient transferred to 2nd floor room 277-2. Patient resting comfortably in bed with call light in reach. Chart and medications left with staff at desk.
[2021-03-27 16:52] LABS: Glucose Point of Care 175 mg/dL (70-110)
[2021-03-27] MEDS: duloxetine 20 mg Capsule PO (20:31)
[2021-03-27] MEDS: tamsulosin 0.4 mg Capsule PO (20:32)
[2021-03-27] MEDS: gabapentin 100 mg Capsule PO (20:32)
[2021-03-27 22:30] LABS: Glucose Point of Care 201 mg/dL (70-110)
[2021-03-28] VITALS (8 sets, daily range): BP systolic 127–145; BP diastolic 79–91; PULSE 86–105; RESP 14–18; TEMP 36.6–36.9; O2SAT 94–98
[2021-03-28 06:02] LABS: Basophils % 0.7 %; Eosinophils # 0.3 10^3/uL (0.0-0.8); Eosinophils % 6.2 %; Hematocrit 27.8 % (42.0-52.0); Hemoglobin 8.1 g/dL (11.7-16.6); Lymphocytes # 0.6 10^3/uL (0.8-4.8); Mean Corpuscular HGB Conc 29.1 g/dL (30.0-36.0); Mean Corpuscular Hemoglobin 28.6 pg (28.0-34.0); Mean Corpuscular Volume 98.2 fl (80-94); Mean Platelet Volume 11.5 fL (7.4-10.4); Monocytes # 0.6 10^3/uL (0.2-0.9); Neutrophils # 2.82 10^3/uL (1.8-7.7); Neutrophils % 66.9 %; Nucleated Red Blood Cells % 0 %; Platelet Count 152 10^3/cmm (130-400); Red Blood Count 2.83 10^6/uL (4.1-5.3); Red Cell Distribution Width 15.8 % (12.1-15.1); White Blood Count 4.2 10^3/uL (4.0-10.0)
[2021-03-28 06:20] LABS: Alanine Aminotransferase < 5 U/L (0-41); Albumin Level 3.2 g/dL (3.5-5.2); Alkaline Phosphatase 56 IU/L (40-130); Anion Gap 15.5 (5-19); Aspartate Amino Transferase 9 U/L (0-40); Blood Urea Nitrogen 39 mg/dL (8-23); Calcium 7.2 mg/dL (8.5-10.5); Carbon Dioxide 30 mmol/L (22-29); Chloride 99 mmol/L (98-107); Globulin 3.1 g/dL (1.3-4.6); Glucose 156 mg/dL (65-115); Magnesium 1.8 mg/dL (1.7-2.3); Osmolality Calculated 305 mOsm/kg (285-295); Phosphorus 5.4 mg/dL (2.5-4.5); Potassium 3.5 mmol/L (3.5-5.1); Sodium 141 mmol/L (136-145); Total Bilirubin 0.3 mg/dL (0.15-1.2); Total Protein 6.3 g/dL (6.6-8.7)
[2021-03-28] MEDS: heparin 5,000 unit/mL INJ 1 mL 5000 UNIT SUBCUT ×2 (06:51→17:48)
--- NOTE | 2021-03-28 07:02 | P.PN_ITS ---
Subjective Subjective: Marco Antonio reports he feels like he is breathing okay this morning. Still swollen. Medications: Reviewed: Yes Vitals/I&O/Wt Last Vital Signs Temp 98.5 F 03/28/21 05:22 Pulse 103 H 03/28/21 05:22 Resp 18 03/28/21 05:22 BP 134/81 03/28/21 05:22 Pulse Ox 95 03/28/21 05:22 03/27/21 03/28/21 03/28/21 22:59 06:59 14:59 Intake Total 240 / 712 50 / 762 Output Total 400 / 1400 1300 / 2700 Balance -160 / -688 -1250 / -1938 Physical Exam Narrative: General exam no distress, currently on 4 L of oxygen. 2 L negative yesterday Neck is supple Cardiovascular regular rate rhythm, heart sounds distant Lungs diminished breath sounds at the bases Abdomen is obese, abdominal wall edema noted Extremities 2+ edema no cyanosis or clubbing. Urinary Catheter Management: Fox: Cath Placed During This Visit: yes Reason for Continuing Indwelling Catheter: Other Urinary Catheter Date of Insertion: 03/21/21 Urinary Catheter Time of Insertion: 22:45 Data : 03/28/21 05:28 03/28/21 05:28 A&P Assessment and plan (1) Acute renal failure: Severe acute kidney injury, superimposed on chronic renal failure. Marked hyperkalemia has improved significantly with dialysis and diuresis. Potassium today is normal Appreciate nephrology consultation. They will decide whether dialysis is needed today. Currently on Lasix 60 mg IV every 12 hours Fox was placed for urinary retention at beginning of hospital stay. This did not help renal function substantially. It is likely Fox will need to be continued at discharge. Avoid renal toxic medication. Creatinine is increased from yesterday. Status: Acute (2) CHF (congestive heart failure): Combined systolic and diastolic, EF 45 to 50% on last echocardiogram Chronically on torsemid, no noted recent dosage changes Chest x-ray with bilateral small effusions Oxygen as needed. He also has some CO2 retention and he is to wear BiPAP as tolerated as well. Echocardiogram demonstrated ejection fraction 45 to 50%, mild aortic stenosis, trace aortic regurgitation, mild to moderate mitral regurgitation and moderate tricuspid regurgitation. This was unchanged from previous echocardiograms. This appears to be coming better compensated with dialysis/diuresis Status: Acute (3) Coronary disease: With intermittent chest pain that is somewhat atypical Chronically on aspirin, Plavix, isosorbide. We will continue Metoprolol was stopped sometime in the last few months due to hypotension Troponin elevated, but no significant delta. Overall stable Status: Chronic (4) Insulin dependent diabetes mellitus: Recent hemoglobin A1c 7.5, has associated peripheral neuropathy Chronically on twice daily Lantus and 3 times daily NovoLog Glucose somewhat low in the mornings. Reduce Lantus to once daily. Takes gabapentin for neuropathy Lantus dose has been reduced secondary to his renal dysfunction. 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 Has been treated with regular Sandostatin and follows with Dr. Allen. Also noted has been bilateral renal masses that were indeterminate Status: Chronic (7) Prostate cancer: Chronically on Casodex and Flomax Status: Chronic (8) Iron deficiency anemia: Secondary to chronic kidney disease. Stable currently Status: Chronic (9) Diabetic ulcer of right foot: Betadine paint to right foot and heel, open to air in bed and covered when up Had been going to wound care clinic until 01/2021 Status: Chronic (10) Peripheral vascular disease: With extensive stasis changes including some desquamating erythematous skin, has compression dressings Cannot rule out some underlying cellulitis. Placed on vancomycin. Continue currently. Status: Chronic (11) Degenerative lumbar spinal stenosis: With chronic back pain, history of L5 vertebral fracture Status: Acute (12) Morbid obesity: Status: Chronic Plan Possible pneumonia. Continue Levaquin, vancomycin. He has had over 7 days of IV antibiotics. Will discontinue. Currently afebrile, with a normal white blood cell count. Hypomagnesemia, supplement. Normal today Full code currently Heparin for DVT prophylaxis PT consultation Attestations Medical Necessity Statement*: Needs continued hospitalization for further diuresis secondary to anasarca prior to discharge back to care home facility. 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
[2021-03-28 07:06] LABS: Vancomycin Random 14.6 ug/mL (20.0-40.0)
[2021-03-28] MEDS: isosorbide mononitrate ER 30 mg Tablet 90 MG PO (09:01)
[2021-03-28] MEDS: pantoprazole DR 40 mg Tablet PO (09:01)
[2021-03-28] MEDS: allopurinol 100 mg Tablet PO (09:01)
[2021-03-28] MEDS: aspirin 81 mg EC Tablet PO (09:01)
[2021-03-28] MEDS: docusate sodium 100 mg Capsule PO ×2 (09:01→17:48)
[2021-03-28] MEDS: ferrous sulfate EC 325 mg Tablet PO ×2 (09:01→17:48)
[2021-03-28] MEDS: clopidogrel 75 mg Tablet PO (09:01)
[2021-03-28] MEDS: FUROsemide 10 mg/mL SDV 10mL 60 MG IVP ×2 (09:02→20:46)
[2021-03-28] MEDS: calcium acetate 667 mg Capsule 1334 MG PO ×3 (09:10→17:48)
[2021-03-28] MEDS: fluticasone nasal spray 16gm Btl 2 SPRAY INTRANASAL (09:18)
[2021-03-28] MEDS: cyanocobalamin 1,000 mcg/mL SDV 1000 MCG IM (09:19)
--- NOTE | 2021-03-28 09:56 | PM.PN ---
Subjective Subjective: swollen. improved MS and resp status. no n/v/f/c/verde/d Medications: Reviewed: Yes Medication Review Details: Current Medications Acetaminophen (Acetaminophen 325 Mg Tablet) 650 mg PO Q6H PRN PRN Reason: Mild/Mod Pain Or Temp >/= 101 Last Admin: 03/27/21 20:31 Dose: 650 mg Documented by: Albuterol Sulfate (Albuterol 8 Gm Mdi) 1 puff INHALATION QID PRN PRN Reason: Shortness Of Breath Allopurinol (Allopurinol 100 Mg Tablet) 100 mg PO DAILY [facility] Last Admin: 03/28/21 09:01 Dose: 100 mg Documented by: Aspirin (Aspirin 81 Mg Ec Tablet) 81 mg PO DAILY@08 [facility] Last Admin: 03/28/21 09:01 Dose: 81 mg Documented by: Bicalutamide (Bicalutamide 50 Mg Tablet) 50 mg PO DAILY@08 [facility] Last Admin: 03/28/21 09:10 Dose: 50 mg Documented by: Bisacodyl (Bisacodyl 5 Mg Tablet) 10 mg PO DAILY PRN; Protocol PRN Reason: Constipation (see protocol) Calcium Acetate (Calcium Acetate 667 Mg Capsule) 1,334 mg PO TIDWM [facility] Last Admin: 03/28/21 09:10 Dose: 1,334 mg Documented by: Clopidogrel Bisulfate (Clopidogrel 75 Mg Tablet) 75 mg PO DAILY@08 [facility] Last Admin: 03/28/21 09:01 Dose: 75 mg Documented by: Cyanocobalamin (Cyanocobalamin 1,000 Mcg/Ml Sdv) 1,000 mcg IM DAILY [facility] Last Admin: 03/28/21 09:19 Dose: 1,000 mcg Documented by: Dextrose (Dextrose 50% Syringe 50 Ml) 25 ml IVP ONCE PRN; Protocol PRN Reason: hypoglycemia protocol Dextrose (Dextrose 50% Syringe 50 Ml) 50 ml IVP PRN PRN; Protocol PRN Reason: hypoglycemia protocol Docusate Sodium (Docusate Sodium 100 Mg Capsule) 100 mg PO BID [facility] Last Admin: 03/28/21 09:01 Dose: 100 mg Documented by: Duloxetine HCl (Duloxetine 20 Mg Capsule) 20 mg PO BEDTIME@20 [facility] Last Admin: 03/27/21 20:31 Dose: 20 mg Documented by: Ergocalciferol (Ergocalciferol (Vitamin D2) 50,000 Unit Capsule) 50,000 unit PO Q7D [facility] Last Admin: 03/26/21 07:59 Dose: 50,000 unit Documented by: Ferrous Sulfate (Ferrous Sulfate Ec 325 Mg Tablet) 325 mg PO BIDWM [facility] Last Admin: 03/28/21 09:01 Dose: 325 mg Documented by: Fluticasone Propionate (Fluticasone Nasal [place] 16gm Btl) 2 spray INTRANASAL DAILY@08 [facility] Last Admin: 03/28/21 09:18 Dose: 2 spray Documented by: Furosemide (Furosemide 10 Mg/Ml Sdv 10ml) 60 mg IVP Q12H [facility] Last Admin: 03/28/21 09:02 Dose: 60 mg Documented by: Gabapentin (Gabapentin 100 Mg Capsule) 100 mg PO BEDTIME@20 [facility] Last Admin: 03/27/21 20:32 Dose: 100 mg Documented by: Glucagon (Glucagon 1 Mg/Ml Inj 1 Ml) 1 mg IM ONCE PRN; Protocol PRN Reason: Adult Acute Hypoglycemia Prot. Heparin Sodium (Porcine) (Heparin 5,000 Unit/Ml Inj 1 Ml) 5,000 unit SUBCUT Q12H [facility] Last Admin: 03/28/21 06:51 Dose: 5,000 unit Documented by: Dextrose (D5w) 500 mls @ 100 mls/hr IV ONCE PRN; Protocol PRN Reason: Adult Acute Hypoglycemia Prot Albumin Human (Albumin) 12.5 gm in 50 mls @ 60 mls/hr IV PRN PRN PRN Reason: Hypotension and/or symptomatic Insulin Glargine (Insulin Glargine 100 Units/1 Ml) 10 unit SUBCUT DAILY [facility] Last Admin: 03/27/21 09:16 Dose: 10 unit Documented by: Insulin Human Lispro (Insulin Lispro 100 Unit/1 Ml) 0 unit SUBCUT BEDTIME [facility]; Protocol Last Admin: 03/27/21 22:05 Dose: 2 unit Documented by: Insulin Human Lispro (Insulin Lispro 100 Unit/1 Ml) 0 unit SUBCUT TIDWM [facility]; Protocol Last Admin: 03/27/21 18:27 Dose: 2 unit Documented by: Isosorbide Mononitrate (Isosorbide Mononitrate Er 30 Mg Tablet) 90 mg PO DAILY@08 [facility] Last Admin: 03/28/21 09:01 Dose: 90 mg Documented by: Lanolin (Lanolin Oint 7 Gm) 1 applic TOPICAL PRN PRN PRN Reason: DRYNESS Last Admin: 03/26/21 02:08 Dose: 1 applic Documented by: Nitroglycerin (Nitroglycerin 0.4 Mg Sublingual Tablet) 0.4 mg SUBLINGUAL Q5M PRN PRN Reason: Chest Pain Nystatin (Nystatin Powder 15 Gm Btl) 1 applic TOPICAL BID [facility] Last Admin: 03/27/21 18:36 Dose: 1 applic Documented by: Ondansetron HCl (Ondansetron 4 Mg Tablet) 4 mg PO Q8H PRN PRN Reason: NAUSEA AND VOMITING Pantoprazole Sodium (Pantoprazole Dr 40 Mg Tablet) 40 mg PO DAILY [facility] Last Admin: 03/28/21 09:01 Dose: 40 mg Documented by: Tamsulosin HCl (Tamsulosin 0.4 Mg Capsule) 0.4 mg PO BEDTIME@20 [facility] Last Admin: 03/27/21 20:32 Dose: 0.4 mg Documented by: Vitals/I&O/Wt Last Vital Signs Temp 98.1 F 03/28/21 07:35 Pulse 99 03/28/21 07:35 Resp 14 03/28/21 07:35 BP 134/81 03/28/21 05:22 Pulse Ox 96 03/28/21 07:35 03/27/21 03/28/21 03/28/21 22:59 06:59 14:59 Intake Total 240 / 712 50 / 762 Output Total 400 / 1400 1300 / 2700 Balance -160 / -688 -1250 / -1938 Physical Exam Narrative: anasarca, comfortable in bed, NARD vs noted heent- nc/at, eomi, anicteric neck obese lungs- dec b/l crackles heart reg, +SHANNON abd soft, nt, distended, ascites ext b/l edema neuro- a.a. o x 2+ , more awake Urinary Catheter Management: Fox: Cath Placed During This Visit: yes Reason for Continuing Indwelling Catheter: Other Urinary Catheter Date of Insertion: 03/21/21 Urinary Catheter Time of Insertion: 22:45 Data : 03/28/21 05:28 03/28/21 05:28 A&P Assessment and plan (1) Acute renal failure: see below Status: Acute Plan 81 yr old man 1. CKD stage 4 - cRS, obesity, dm, htn. h/o prostate ca on flomax and casodex 2. EFREN- CRS-s/p dialysis x 2 -will hold HD today and give lasix -assess in am for further HD -phos improvrd- use binder w/ meals 3. hypercapneic resp acidosis- bipap per medcine 4. echo- moderate MR, TR, EF 45% and grade 2/4 diastolic dysfunction 5. 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 Has been treated with regular Sandostatin and follows with Dr. Allen.? Also noted has been bilateral renal masses that were indeterminate. 6. DM right foot ulcer - monitor vanco levels 6b. dm control- no jackelyn-i/ arb, metformin, sglt2-i, sulfinylureas w/ efren on ckd 7. anemia- tsat 30%, ferritin 333- po iron - hgb stable -epo 8. hyperuricemia- allopurinol 100 d 9. hypocalcemia- pth 367- calcitriol, vit d repletion seen and examined w/ rn- telehealth visi time spent 30 min Attestations Medical Necessity Statement*: efren, resp acidosis, edema Time Spent in Patient Care: 16 - 35 minutes (>than 50% of time spent in counselling and/or direct pt care on unit). 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
--- NOTE | 2021-03-28 11:32 | PC.SOCIAL ---
IMM Update pg 2 of IMM updated and reviewed w/ patient. Copy provided and copy in chart updated.
[2021-03-28 12:09] LABS: Glucose Point of Care 195 mg/dL (70-110)
[2021-03-28 12:10] LABS: Glucose Point of Care 155 mg/dL (70-110)
[2021-03-28] MEDS: insulin lispro 100 unit/1 mL SUBCUT ×4 (12:46→21:49)
[2021-03-28] MEDS: insulin glargine 100 units/1 mL 10 UNIT SUBCUT (13:21)
[2021-03-28] MEDS: acetaminophen 325 mg Tablet 650 MG PO (18:32)
[2021-03-28] MEDS: nystatin powder 15 gm Btl 1 APPLIC TOPICAL ×2 (18:36)
[2021-03-28] MEDS: gabapentin 100 mg Capsule PO (20:46)
[2021-03-28] MEDS: tamsulosin 0.4 mg Capsule PO (20:46)
[2021-03-28] MEDS: duloxetine 20 mg Capsule PO (20:46)
[2021-03-28 21:43] LABS: Glucose Point of Care 196 mg/dL (70-110)
[2021-03-28 21:43] LABS: Glucose Point of Care 242 mg/dL (70-110)
[2021-03-29] VITALS (11 sets, daily range): BP systolic 115–172; BP diastolic 66–90; PULSE 78–111; RESP 16–20; TEMP 36.4–36.8; O2SAT 91–97
[2021-03-29] MEDS: heparin 5,000 unit/mL INJ 1 mL 5000 UNIT SUBCUT ×2 (06:26→18:32)
[2021-03-29 06:49] LABS: Glucose Point of Care 168 mg/dL (70-110)
--- NOTE | 2021-03-29 07:23 | PM.PN ---
Subjective Subjective: more awake, swollen. less sob Medications: Reviewed: Yes Medication Review Details: Current Medications Acetaminophen (Acetaminophen 325 Mg Tablet) 650 mg PO Q6H PRN PRN Reason: Mild/Mod Pain Or Temp >/= 101 Last Admin: 03/28/21 18:32 Dose: 650 mg Documented by: Albuterol Sulfate (Albuterol 8 Gm Mdi) 1 puff INHALATION QID PRN PRN Reason: Shortness Of Breath Allopurinol (Allopurinol 100 Mg Tablet) 100 mg PO DAILY [facility] Last Admin: 03/28/21 09:01 Dose: 100 mg Documented by: Aspirin (Aspirin 81 Mg Ec Tablet) 81 mg PO DAILY@08 [facility] Last Admin: 03/28/21 09:01 Dose: 81 mg Documented by: Bicalutamide (Bicalutamide 50 Mg Tablet) 50 mg PO DAILY@08 [facility] Last Admin: 03/28/21 09:10 Dose: 50 mg Documented by: Bisacodyl (Bisacodyl 5 Mg Tablet) 10 mg PO DAILY PRN; Protocol PRN Reason: Constipation (see protocol) Calcium Acetate (Calcium Acetate 667 Mg Capsule) 1,334 mg PO TIDWM [facility] Last Admin: 03/28/21 17:48 Dose: 1,334 mg Documented by: Clopidogrel Bisulfate (Clopidogrel 75 Mg Tablet) 75 mg PO DAILY@08 [facility] Last Admin: 03/28/21 09:01 Dose: 75 mg Documented by: Cyanocobalamin (Cyanocobalamin 1,000 Mcg/Ml Sdv) 1,000 mcg IM DAILY [facility] Last Admin: 03/28/21 09:19 Dose: 1,000 mcg Documented by: Dextrose (Dextrose 50% Syringe 50 Ml) 25 ml IVP ONCE PRN; Protocol PRN Reason: hypoglycemia protocol Dextrose (Dextrose 50% Syringe 50 Ml) 50 ml IVP PRN PRN; Protocol PRN Reason: hypoglycemia protocol Docusate Sodium (Docusate Sodium 100 Mg Capsule) 100 mg PO BID [facility] Last Admin: 03/28/21 17:48 Dose: 100 mg Documented by: Duloxetine HCl (Duloxetine 20 Mg Capsule) 20 mg PO BEDTIME@20 [facility] Last Admin: 03/28/21 20:46 Dose: 20 mg Documented by: Ergocalciferol (Ergocalciferol (Vitamin D2) 50,000 Unit Capsule) 50,000 unit PO Q7D [facility] Last Admin: 03/26/21 07:59 Dose: 50,000 unit Documented by: Ferrous Sulfate (Ferrous Sulfate Ec 325 Mg Tablet) 325 mg PO BIDWM [facility] Last Admin: 03/28/21 17:48 Dose: 325 mg Documented by: Fluticasone Propionate (Fluticasone Nasal [place] 16gm Btl) 2 spray INTRANASAL DAILY@08 [facility] Last Admin: 03/28/21 09:18 Dose: 2 spray Documented by: Furosemide (Furosemide 10 Mg/Ml Sdv 10ml) 80 mg IVP Q12H [facility] Gabapentin (Gabapentin 100 Mg Capsule) 100 mg PO BEDTIME@20 [facility] Last Admin: 03/28/21 20:46 Dose: 100 mg Documented by: Glucagon (Glucagon 1 Mg/Ml Inj 1 Ml) 1 mg IM ONCE PRN; Protocol PRN Reason: Adult Acute Hypoglycemia Prot. Heparin Sodium (Porcine) (Heparin 5,000 Unit/Ml Inj 1 Ml) 5,000 unit SUBCUT Q12H [facility] Last Admin: 03/29/21 06:26 Dose: 5,000 unit Documented by: Dextrose (D5w) 500 mls @ 100 mls/hr IV ONCE PRN; Protocol PRN Reason: Adult Acute Hypoglycemia Prot Albumin Human (Albumin) 12.5 gm in 50 mls @ 60 mls/hr IV PRN PRN PRN Reason: Hypotension and/or symptomatic Insulin Glargine (Insulin Glargine 100 Units/1 Ml) 10 unit SUBCUT DAILY [facility] Last Admin: 03/28/21 13:21 Dose: 10 unit Documented by: Insulin Human Lispro (Insulin Lispro 100 Unit/1 Ml) 0 unit SUBCUT BEDTIME [facility]; Protocol Last Admin: 03/28/21 21:49 Dose: 3 unit Documented by: Insulin Human Lispro (Insulin Lispro 100 Unit/1 Ml) 0 unit SUBCUT TIDWM [facility]; Protocol Last Admin: 03/28/21 17:48 Dose: 4 unit Documented by: Isosorbide Mononitrate (Isosorbide Mononitrate Er 30 Mg Tablet) 90 mg PO DAILY@08 [facility] Last Admin: 03/28/21 09:01 Dose: 90 mg Documented by: Lanolin (Lanolin Oint 7 Gm) 1 applic TOPICAL PRN PRN PRN Reason: DRYNESS Last Admin: 03/26/21 02:08 Dose: 1 applic Documented by: Metolazone (Metolazone 5 Mg Tablet) 5 mg PO DAILY [facility] Nitroglycerin (Nitroglycerin 0.4 Mg Sublingual Tablet) 0.4 mg SUBLINGUAL Q5M PRN PRN Reason: Chest Pain Nystatin (Nystatin Powder 15 Gm Btl) 1 applic TOPICAL BID [facility] Last Admin: 03/28/21 18:36 Dose: 1 applic Documented by: Ondansetron HCl (Ondansetron 4 Mg Tablet) 4 mg PO Q8H PRN PRN Reason: NAUSEA AND VOMITING Pantoprazole Sodium (Pantoprazole Dr 40 Mg Tablet) 40 mg PO DAILY [facility] Last Admin: 03/28/21 09:01 Dose: 40 mg Documented by: Tamsulosin HCl (Tamsulosin 0.4 Mg Capsule) 0.4 mg PO BEDTIME@20 [facility] Last Admin: 03/28/21 20:46 Dose: 0.4 mg Documented by: Vitals/I&O/Wt Last Vital Signs Temp 97.8 F 03/29/21 04:00 Pulse 78 03/29/21 04:00 Resp 17 03/29/21 04:00 BP 120/66 03/29/21 04:00 Pulse Ox 94 03/29/21 04:00 03/28/21 03/29/21 03/29/21 22:59 06:59 14:59 Output Total 900 / 900 1100 / 1999 Balance -900 / -900 -1100 / -1999 Physical Exam Narrative: anasarca, comfortable in bed, NARD vs noted heent- nc/at, eomi, anicteric neck obese lungs- dec b/l crackles heart reg, +SHANNON abd soft, nt, distended, ascites ext b/l edema neuro- a.a. o x 2+ , more awake Urinary Catheter Management: Fox: Cath Placed During This Visit: yes Reason for Continuing Indwelling Catheter: Other Urinary Catheter Date of Insertion: 03/21/21 Urinary Catheter Time of Insertion: 22:45 Data : 03/28/21 05:28 03/28/21 05:28 A&P Assessment and plan (1) Acute renal failure: see below Status: Acute Plan 81 yr old man 1. CKD stage 4 - cRS, obesity, dm, htn. h/o prostate ca on flomax and casodex -b/l cr 2.6-3 2. EFREN- CRS-s/p dialysis x 2 -will hold HD today and give lasix and metolazone -assess in am for further HD -phos improved- use binder w/ meals -i am concerned that pt may need to stay on HD to remain euvolemic 3. hypercapneic resp acidosis- bipap per medcine 4. echo- moderate MR, TR, EF 45% and grade 2/4 diastolic dysfunction 5. 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 Has been treated with regular Sandostatin and follows with Dr. Allen.? Also noted has been bilateral renal masses that were indeterminate. 6. DM right foot ulcer - monitor vanco levels 6b. dm control- no jackelyn-i/ arb, metformin, sglt2-i, sulfinylureas w/ efren on ckd 7. anemia- tsat 30%, ferritin 333- po iron - hgb stable -epo 8. hyperuricemia- allopurinol 100 d 9. hypocalcemia- pth 367- calcitriol, vit d repletion seen and examined w/ rn- telehealth visi time spent 25 min Attestations Medical Necessity Statement*: efren, anemia, anasarca Time Spent in Patient Care: 16 - 35 minutes (>than 50% of time spent in counselling and/or direct pt care on unit). 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
--- NOTE | 2021-03-29 08:10 | PM.PN ---
Subjective Subjective: Marco Antonio reports he is doing okay. Less swollen. I's and O's appear inaccurate but he still made a fair amount of urine 2000 cc yesterday. Medications: Reviewed: Yes Vitals/I&O/Wt Last Vital Signs Temp 97.7 F 03/29/21 08:00 Pulse 99 03/29/21 08:00 Resp 18 03/29/21 08:00 BP 115/68 03/29/21 08:00 Pulse Ox 97 03/29/21 08:00 03/28/21 03/29/21 03/29/21 22:59 06:59 14:59 Output Total 900 / 900 1100 / 1999 Balance -900 / -900 -1100 / -1999 Physical Exam Narrative: General exam no distress, currently on 4 L of oxygen. 2 L negative yesterday Neck is supple Cardiovascular regular rate rhythm, heart sounds distant Lungs diminished breath sounds at the bases Abdomen is obese, abdominal wall edema noted Extremities 1+ edema no cyanosis or clubbing. Urinary Catheter Management: Fox: Cath Placed During This Visit: yes Reason for Continuing Indwelling Catheter: Other Urinary Catheter Date of Insertion: 03/21/21 Urinary Catheter Time of Insertion: 22:45 Data : 03/28/21 05:28 03/28/21 05:28 A&P Assessment and plan (1) Acute renal failure: Severe acute kidney injury, superimposed on chronic renal failure. Marked hyperkalemia has improved significantly with dialysis and diuresis. Potassium today is normal Appreciate nephrology consultation. They will decide whether dialysis is needed today. He is still making a fair amount of urine. Electrolytes are pending for today. Currently on Lasix 60 mg IV every 12 hours Fox was placed for urinary retention at beginning of hospital stay. This did not help renal function substantially. It is likely Fox will need to be continued at discharge. Avoid renal toxic medication. Status: Acute (2) CHF (congestive heart failure): Combined systolic and diastolic, EF 45 to 50% on last echocardiogram Chronically on torsemid, no noted recent dosage changes Chest x-ray with bilateral small effusions Oxygen as needed. He also has some CO2 retention and he is to wear BiPAP as tolerated as well. Echocardiogram demonstrated ejection fraction 45 to 50%, mild aortic stenosis, trace aortic regurgitation, mild to moderate mitral regurgitation and moderate tricuspid regurgitation. This was unchanged from previous echocardiograms. This appears to be coming better compensated with dialysis/diuresis Status: Acute (3) Coronary disease: With intermittent chest pain that is somewhat atypical Chronically on aspirin, Plavix, isosorbide. We will continue Metoprolol was stopped sometime in the last few months due to hypotension Troponin elevated, but no significant delta. Overall stable Status: Chronic (4) Insulin dependent diabetes mellitus: Recent hemoglobin A1c 7.5, has associated peripheral neuropathy Chronically on twice daily Lantus and 3 times daily NovoLog Glucose somewhat low in the mornings. Reduce Lantus to once daily. Takes gabapentin for neuropathy Lantus dose has been reduced secondary to his renal dysfunction. 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 Has been treated with regular Sandostatin and follows with Dr. Allen. Also noted has been bilateral renal masses that were indeterminate Status: Chronic (7) Prostate cancer: Chronically on Casodex and Flomax Status: Chronic (8) Iron deficiency anemia: Secondary to chronic kidney disease. Stable currently Status: Chronic (9) Diabetic ulcer of right foot: Betadine paint to right foot and heel, open to air in bed and covered when up Had been going to wound care clinic until 01/2021 Status: Chronic (10) Peripheral vascular disease: With extensive stasis changes including some desquamating erythematous skin, has compression dressings Cannot rule out some underlying cellulitis. Placed on vancomycin. Continue currently. Status: Chronic (11) Degenerative lumbar spinal stenosis: With chronic back pain, history of L5 vertebral fracture Status: Acute (12) Morbid obesity: Status: Chronic Plan Possible pneumonia. He received a course of vancomycin and Levaquin. This has been discontinued currently. No evidence of recurrent infection. Hypomagnesemia. Supplemented previously. Awaiting numbers today. Full code currently Heparin for DVT prophylaxis Physical therapy is on board Probable discharge within the next 1 to 2 days. Awaiting laboratory today, further recommendations per nephrology, whether dialysis will be needed as an outpatient as well. Attestations Medical Necessity Statement*: Needs continued hospitalization secondary to severe acute renal failure and anasarca still with edema and need for diuresis. 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
[2021-03-29] MEDS: aspirin 81 mg EC Tablet PO (08:11)
[2021-03-29] MEDS: docusate sodium 100 mg Capsule PO ×2 (08:11→18:31)
[2021-03-29] MEDS: FUROsemide 10 mg/mL SDV 10mL 80 MG IVP (08:11)
[2021-03-29] MEDS: allopurinol 100 mg Tablet PO (08:11)
[2021-03-29] MEDS: calcium acetate 667 mg Capsule 1334 MG PO ×3 (08:11→18:31)
[2021-03-29] MEDS: isosorbide mononitrate ER 30 mg Tablet 90 MG PO (08:11)
[2021-03-29] MEDS: pantoprazole DR 40 mg Tablet PO (08:11)
[2021-03-29] MEDS: metOLazone 5 MG Tablet PO (08:12)
[2021-03-29] MEDS: ferrous sulfate EC 325 mg Tablet PO ×2 (08:12→18:31)
[2021-03-29] MEDS: cyanocobalamin 1,000 mcg/mL SDV 1000 MCG IM (08:12)
[2021-03-29] MEDS: fluticasone nasal spray 16gm Btl 2 SPRAY INTRANASAL (08:12)
[2021-03-29] MEDS: clopidogrel 75 mg Tablet PO (08:12)
[2021-03-29] MEDS: insulin lispro 100 unit/1 mL SUBCUT ×4 (08:13→20:52)
[2021-03-29] MEDS: nystatin powder 15 gm Btl 1 APPLIC TOPICAL ×2 (09:02→18:32)
[2021-03-29] MEDS: insulin glargine 100 units/1 mL 10 UNIT SUBCUT (09:02)
[2021-03-29 09:25] LABS: Basophils % 0.9 %; Eosinophils # 0.3 10^3/uL (0.0-0.8); Eosinophils % 7.2 %; Hematocrit 29.1 % (42.0-52.0); Hemoglobin 8.3 g/dL (11.7-16.6); Lymphocytes # 0.6 10^3/uL (0.8-4.8); Lymphocytes % 12.7 %; Mean Corpuscular HGB Conc 28.5 g/dL (30.0-36.0); Mean Corpuscular Hemoglobin 28.9 pg (28.0-34.0); Mean Corpuscular Volume 101.4 fl (80-94); Mean Platelet Volume 11.1 fL (7.4-10.4); Monocytes # 0.5 10^3/uL (0.2-0.9); Neutrophils # 3.14 10^3/uL (1.8-7.7); Neutrophils % 68.5 %; Nucleated Red Blood Cells % 0 %; Platelet Count 154 10^3/cmm (130-400); Red Blood Count 2.87 10^6/uL (4.1-5.3); White Blood Count 4.6 10^3/uL (4.0-10.0)
[2021-03-29 09:48] LABS: Alanine Aminotransferase 6 U/L (0-41); Albumin Level 3.1 g/dL (3.5-5.2); Alkaline Phosphatase 56 IU/L (40-130); Blood Urea Nitrogen 50 mg/dL (8-23); Calcium 7.9 mg/dL (8.5-10.5); Carbon Dioxide 29 mmol/L (22-29); Chloride 97 mmol/L (98-107); Globulin 3.4 g/dL (1.3-4.6); Glucose 158 mg/dL (65-115); Magnesium 1.7 mg/dL (1.7-2.3); Osmolality Calculated 307 mOsm/kg (285-295); Phosphorus 5.3 mg/dL (2.5-4.5); Sodium 140 mmol/L (136-145); Total Bilirubin 0.2 mg/dL (0.15-1.2); Total Protein 6.5 g/dL (6.6-8.7); Uric Acid 5.8 mg/dL (3.4-7.0)
[2021-03-29 09:51] LABS: Anion Gap 17.6 (5-19); Aspartate Amino Transferase 13 U/L (0-40); Potassium 3.6 mmol/L (3.5-5.1)
[2021-03-29 11:45] LABS: Glucose Point of Care 195 mg/dL (70-110)
[2021-03-29 11:45] LABS: Glucose Point of Care 188 mg/dL (70-110)
--- NOTE | 2021-03-29 17:57 | PC.NURSE ---
pt in dialysis
[2021-03-29] MEDS: tamsulosin 0.4 mg Capsule PO (20:52)
[2021-03-29] MEDS: gabapentin 100 mg Capsule PO (20:52)
[2021-03-29] MEDS: duloxetine 20 mg Capsule PO (20:52)
[2021-03-29 21:09] LABS: Glucose Point of Care 192 mg/dL (70-110)
[2021-03-30] VITALS (9 sets, daily range): BP systolic 117–163; BP diastolic 74–99; PULSE 70–109; RESP 16–20; TEMP 36.4–36.8; O2SAT 90–100
[2021-03-30 05:21] LABS: Alanine Aminotransferase 7 U/L (0-41); Albumin Level 3.4 g/dL (3.5-5.2); Alkaline Phosphatase 59 IU/L (40-130); Aspartate Amino Transferase 14 U/L (0-40); Blood Urea Nitrogen 33 mg/dL (8-23); Carbon Dioxide 28 mmol/L (22-29); Chloride 98 mmol/L (98-107); Globulin 3.3 g/dL (1.3-4.6); Glucose 182 mg/dL (65-115); Magnesium 1.7 mg/dL (1.7-2.3); Osmolality Calculated 298 mOsm/kg (285-295); Phosphorus 3.4 mg/dL (2.5-4.5); Sodium 138 mmol/L (136-145); Total Bilirubin 0.2 mg/dL (0.15-1.2); Total Protein 6.7 g/dL (6.6-8.7)
[2021-03-30 05:46] LABS: Anion Gap 15.7 (5-19); Potassium 3.7 mmol/L (3.5-5.1)
[2021-03-30] MEDS: heparin 5,000 unit/mL INJ 1 mL 5000 UNIT SUBCUT ×2 (06:11→17:21)
[2021-03-30 06:23] LABS: Glucose Point of Care 163 mg/dL (70-110)
[2021-03-30 06:46] LABS: Glucose Point of Care 175 mg/dL (70-110)
--- NOTE | 2021-03-30 06:55 | PM.PN ---
Subjective Subjective: wants to go home. no n/v/f/c/verde/d. dec edema. is urinating Medications: Reviewed: Yes Medication Review Details: Current Medications Acetaminophen (Acetaminophen 325 Mg Tablet) 650 mg PO Q6H PRN PRN Reason: Mild/Mod Pain Or Temp >/= 101 Last Admin: 03/28/21 18:32 Dose: 650 mg Documented by: Albuterol Sulfate (Albuterol 8 Gm Mdi) 1 puff INHALATION QID PRN PRN Reason: Shortness Of Breath Allopurinol (Allopurinol 100 Mg Tablet) 100 mg PO DAILY [facility] Last Admin: 03/29/21 08:11 Dose: 100 mg Documented by: Aspirin (Aspirin 81 Mg Ec Tablet) 81 mg PO DAILY@08 [facility] Last Admin: 03/29/21 08:11 Dose: 81 mg Documented by: Bicalutamide (Bicalutamide 50 Mg Tablet) 50 mg PO DAILY@08 [facility] Last Admin: 03/29/21 09:02 Dose: 50 mg Documented by: Bisacodyl (Bisacodyl 5 Mg Tablet) 10 mg PO DAILY PRN; Protocol PRN Reason: Constipation (see protocol) Calcium Acetate (Calcium Acetate 667 Mg Capsule) 1,334 mg PO TIDWM [facility] Last Admin: 03/29/21 18:31 Dose: 1,334 mg Documented by: Clopidogrel Bisulfate (Clopidogrel 75 Mg Tablet) 75 mg PO DAILY@08 [facility] Last Admin: 03/29/21 08:12 Dose: 75 mg Documented by: Cyanocobalamin (Cyanocobalamin 1,000 Mcg/Ml Sdv) 1,000 mcg IM DAILY [facility] Last Admin: 03/29/21 08:12 Dose: 1,000 mcg Documented by: Dextrose (Dextrose 50% Syringe 50 Ml) 25 ml IVP ONCE PRN; Protocol PRN Reason: hypoglycemia protocol Dextrose (Dextrose 50% Syringe 50 Ml) 50 ml IVP PRN PRN; Protocol PRN Reason: hypoglycemia protocol Docusate Sodium (Docusate Sodium 100 Mg Capsule) 100 mg PO BID [facility] Last Admin: 03/29/21 18:31 Dose: 100 mg Documented by: Duloxetine HCl (Duloxetine 20 Mg Capsule) 20 mg PO BEDTIME@20 [facility] Last Admin: 03/29/21 20:52 Dose: 20 mg Documented by: Ergocalciferol (Ergocalciferol (Vitamin D2) 50,000 Unit Capsule) 50,000 unit PO Q7D [facility] Last Admin: 03/26/21 07:59 Dose: 50,000 unit Documented by: Ferrous Sulfate (Ferrous Sulfate Ec 325 Mg Tablet) 325 mg PO BIDWM [facility] Last Admin: 03/29/21 18:31 Dose: 325 mg Documented by: Fluticasone Propionate (Fluticasone Nasal Mobile 16gm Btl) 2 spray INTRANASAL DAILY@08 [facility] Last Admin: 03/29/21 08:12 Dose: 2 spray Documented by: Furosemide (Furosemide 10 Mg/Ml Sdv 10ml) 80 mg IVP DAILY [facility] Gabapentin (Gabapentin 100 Mg Capsule) 100 mg PO BEDTIME@20 [facility] Last Admin: 03/29/21 20:52 Dose: 100 mg Documented by: Glucagon (Glucagon 1 Mg/Ml Inj 1 Ml) 1 mg IM ONCE PRN; Protocol PRN Reason: Adult Acute Hypoglycemia Prot. Heparin Sodium (Porcine) (Heparin 5,000 Unit/Ml Inj 1 Ml) 5,000 unit SUBCUT Q12H [facility] Last Admin: 03/30/21 06:11 Dose: 5,000 unit Documented by: Dextrose (D5w) 500 mls @ 100 mls/hr IV ONCE PRN; Protocol PRN Reason: Adult Acute Hypoglycemia Prot Albumin Human (Albumin) 12.5 gm in 50 mls @ 60 mls/hr IV PRN PRN PRN Reason: Hypotension and/or symptomatic Insulin Glargine (Insulin Glargine 100 Units/1 Ml) 10 unit SUBCUT DAILY [facility] Last Admin: 03/29/21 09:02 Dose: 10 unit Documented by: Insulin Human Lispro (Insulin Lispro 100 Unit/1 Ml) 0 unit SUBCUT BEDTIME [facility]; Protocol Last Admin: 03/29/21 20:52 Dose: 2 unit Documented by: Insulin Human Lispro (Insulin Lispro 100 Unit/1 Ml) 0 unit SUBCUT TIDWM [facility]; Protocol Last Admin: 03/29/21 18:32 Dose: 2 unit Documented by: Isosorbide Mononitrate (Isosorbide Mononitrate Er 30 Mg Tablet) 90 mg PO DAILY@08 [facility] Last Admin: 03/29/21 08:11 Dose: 90 mg Documented by: Lanolin (Lanolin Oint 7 Gm) 1 applic TOPICAL PRN PRN PRN Reason: DRYNESS Last Admin: 03/26/21 02:08 Dose: 1 applic Documented by: Nitroglycerin (Nitroglycerin 0.4 Mg Sublingual Tablet) 0.4 mg SUBLINGUAL Q5M PRN PRN Reason: Chest Pain Nystatin (Nystatin Powder 15 Gm Btl) 1 applic TOPICAL BID [facility] Last Admin: 03/29/21 18:32 Dose: 1 applic Documented by: Ondansetron HCl (Ondansetron 4 Mg Tablet) 4 mg PO Q8H PRN PRN Reason: NAUSEA AND VOMITING Pantoprazole Sodium (Pantoprazole Dr 40 Mg Tablet) 40 mg PO DAILY [facility] Last Admin: 03/29/21 08:11 Dose: 40 mg Documented by: Tamsulosin HCl (Tamsulosin 0.4 Mg Capsule) 0.4 mg PO BEDTIME@20 [facility] Last Admin: 03/29/21 20:52 Dose: 0.4 mg Documented by: Vitals/I&O/Wt Last Vital Signs Temp 97.8 F 03/30/21 04:00 Pulse 101 H 03/30/21 06:00 Resp 16 03/30/21 04:00 BP 124/74 03/30/21 04:00 Pulse Ox 90 03/30/21 04:00 03/29/21 03/29/21 03/30/21 14:59 22:59 06:59 Intake Total 600 / 600 Output Total 650 / 650 550 / 1200 440 / 1640 Balance -50 / -50 -550 / -600 -440 / -1040 Physical Exam Narrative: dec edema, comfortable in bed, NARD vs noted heent- nc/at, eomi, anicteric neck obese lungs- dec b/l crackles heart irreg irreg, +SHANNON abd soft, nt, distended, ascites ext b/l edema improving neuro- a.a. o x 2+ , moves all extremities Urinary Catheter Management: Fox: Cath Placed During This Visit: yes Reason for Continuing Indwelling Catheter: Acute Urinary Retention or Obstruction Urinary Catheter Date of Insertion: 03/21/21 Urinary Catheter Time of Insertion: 22:45 Data : 03/29/21 09:14 03/30/21 04:51 A&P Assessment and plan (1) Acute renal failure: see below Status: Acute Plan 81 yr old man 1. CKD stage 4 - cRS, obesity, dm, htn. h/o prostate ca on flomax and casodex -b/l cr 2.6-3 2. EFREN- CRS-s/p dialysis x 2 -will hold HD today and give lasix -assess in am for further HD vs recovery- if he remains dialysis dependent over weekend, then consider permacath next week -phos improved- dec binder dose w/ meals -i am concerned that pt may need to stay on HD to remain euvolemic 3. hypercapneic resp acidosis- bipap per medcine 4. echo- moderate MR, TR, EF 45% and grade 2/4 diastolic dysfunction -lasix and dialysis as needed 5. 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 Has been treated with regular Sandostatin and follows with Dr. Allen.? Also noted has been bilateral renal masses that were indeterminate. 6. DM right foot ulcer - monitor vanco levels 6b. dm control- no jackelyn-i/ arb, metformin, sglt2-i, sulfinylureas w/ efren on ckd 7. anemia- tsat 30%, ferritin 333- po iron - hgb stable -epo 8. hyperuricemia- allopurinol 100 d 9. hypocalcemia- pth 367- calcitriol, vit d repletion seen and examined w/ rn- telehealth visi time spent 30 min Attestations Medical Necessity Statement*: efren, chf, copd Time Spent in Patient Care: 16 - 35 minutes (>than 50% of time spent in counselling and/or direct pt care on unit). 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
--- NOTE | 2021-03-30 07:42 | PM.PN ---
Subjective Subjective: Marco Antonio reports he is doing okay. He wants to get out of the hospital soon. He has been tolerating dialysis without difficulty. Nephrology has seen him today and thinks his next dialysis will likely be tomorrow. Medications: Reviewed: Yes Vitals/I&O/Wt Last Vital Signs Temp 97.8 F 03/30/21 04:00 Pulse 101 H 03/30/21 06:00 Resp 16 03/30/21 04:00 BP 124/74 03/30/21 04:00 Pulse Ox 90 03/30/21 04:00 03/29/21 03/30/21 03/30/21 22:59 06:59 14:59 Output Total 550 / 1200 440 / 1640 Balance -550 / -600 -440 / -1040 Physical Exam Narrative: General exam no distress, currently on 4 L of oxygen. 2 L negative yesterday Neck is supple Cardiovascular regular rate rhythm, heart sounds distant Lungs diminished breath sounds at the bases Abdomen is obese, abdominal wall edema noted Extremities 1+ edema no cyanosis or clubbing. Urinary Catheter Management: Fox: Cath Placed During This Visit: yes Reason for Continuing Indwelling Catheter: Acute Urinary Retention or Obstruction Urinary Catheter Date of Insertion: 03/21/21 Urinary Catheter Time of Insertion: 22:45 Data : 03/29/21 09:14 03/30/21 04:51 A&P Assessment and plan (1) Acute renal failure: Severe acute kidney injury, superimposed on chronic renal failure. Marked hyperkalemia has improved significantly with dialysis and diuresis. Potassium today is normal Appreciate nephrology consultation. No dialysis is planned today. Will likely receive tomorrow Fox was placed for urinary retention at beginning of hospital stay. This did not help renal function substantially. It is likely Fox will need to be continued at discharge. Avoid renal toxic medication. Status: Acute (2) CHF (congestive heart failure): Combined systolic and diastolic, EF 45 to 50% on last echocardiogram Chronically on torsemid, no noted recent dosage changes Chest x-ray with bilateral small effusions Echocardiogram demonstrated ejection fraction 45 to 50%, mild aortic stenosis, trace aortic regurgitation, mild to moderate mitral regurgitation and moderate tricuspid regurgitation. This was unchanged from previous echocardiograms. This appears to be coming better compensated with dialysis/diuresis Status: Acute (3) Coronary disease: With intermittent chest pain that is somewhat atypical Chronically on aspirin, Plavix, isosorbide. We will continue Metoprolol was stopped sometime in the last few months due to hypotension Troponin elevated, but no significant delta. Overall stable Status: Chronic (4) Insulin dependent diabetes mellitus: Recent hemoglobin A1c 7.5, has associated peripheral neuropathy Chronically on twice daily Lantus and 3 times daily NovoLog Glucose somewhat low in the mornings. Reduce Lantus to once daily. Takes gabapentin for neuropathy Lantus dose has been reduced secondary to his renal dysfunction. 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 Has been treated with regular Sandostatin and follows with Dr. Allen. Also noted has been bilateral renal masses that were indeterminate Status: Chronic (7) Prostate cancer: Chronically on Casodex and Flomax Status: Chronic (8) Iron deficiency anemia: Secondary to chronic kidney disease. Stable currently Status: Chronic (9) Diabetic ulcer of right foot: Betadine paint to right foot and heel, open to air in bed and covered when up Had been going to wound care clinic until 01/2021 Status: Chronic (10) Peripheral vascular disease: With extensive stasis changes including some desquamating erythematous skin, has compression dressings Cannot rule out some underlying cellulitis. Placed on vancomycin. Continue currently. Status: Chronic (11) Degenerative lumbar spinal stenosis: With chronic back pain, history of L5 vertebral fracture Status: Acute (12) Morbid obesity: Status: Chronic Plan Possible pneumonia. He received a course of vancomycin and Levaquin. This has been discontinued currently. No evidence of recurrent infection. Hypomagnesemia. Supplemented previously. Normal today Full code currently Heparin for DVT prophylaxis Physical therapy is on board Current plan is likely dialysis tomorrow, then discharged to the nursing facility as long as outpatient dialysis is arranged for Friday. Attestations Medical Necessity Statement*: Needs continued hospitalization for close management of end-stage renal disease requiring hemodialysis. 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
[2021-03-30] MEDS: allopurinol 100 mg Tablet PO (08:09)
[2021-03-30] MEDS: docusate sodium 100 mg Capsule PO ×2 (08:09→17:22)
[2021-03-30] MEDS: aspirin 81 mg EC Tablet PO (08:09)
[2021-03-30] MEDS: FUROsemide 10 mg/mL SDV 10mL 80 MG IVP ×2 (08:09→17:21)
[2021-03-30] MEDS: fluticasone nasal spray 16gm Btl 2 SPRAY INTRANASAL (08:10)
[2021-03-30] MEDS: clopidogrel 75 mg Tablet PO (08:10)
[2021-03-30] MEDS: ferrous sulfate EC 325 mg Tablet PO ×2 (08:10→17:22)
[2021-03-30] MEDS: isosorbide mononitrate ER 30 mg Tablet 90 MG PO (08:10)
[2021-03-30] MEDS: calcium acetate 667 mg Capsule PO ×3 (08:10→17:22)
[2021-03-30] MEDS: insulin lispro 100 unit/1 mL SUBCUT ×4 (08:10→21:00)
[2021-03-30] MEDS: nystatin powder 15 gm Btl 1 APPLIC TOPICAL ×2 (08:11→17:22)
[2021-03-30] MEDS: pantoprazole DR 40 mg Tablet PO (08:11)
[2021-03-30] MEDS: cyanocobalamin 1,000 mcg/mL SDV 1000 MCG IM (08:11)
[2021-03-30] MEDS: insulin glargine 100 units/1 mL 10 UNIT SUBCUT (08:13)
--- NOTE | 2021-03-30 09:15 | PC.CHAP ---
Pastoral Care Encounter/Spiritual Assessment Type of Contact [] Declined air traffic instructor visit [] Patient/Family/Request visit [] Outpatient visit [] Follow-up visit [] Physician referral [] Code/Alert [x] Routine visit [] Staff referral [] Actively dying [] Patient sleeping [] Family support [] [] Out of room [] Palliative care [] [] Receiving care in room [] Pre-surgical visit [] Trauma [] Long length of stay [] ICU visit [] Other: Relational/Emotional Strength [x] Patient feels connected with others/family/visitors/staff [] Distress [] Loneliness/isolation [] Abandonment Spirituality of Patient []x Person of Maribel [] Attends Jainism of their Maribel [x] Believes in Prayer [] Reads Bible or Yarsani materials [] There are Spiritual issues to be addressed Quartz Cutter Interventions [x Prayer [] Active listening [] Non-anxious presence [] Spiritual/emotional support [] Crisis/trauma care [] Spiritual counseling [] Bereavement support [] Provided bereavement packet [] Provided Bible/devotional materials [] Provided toy/stuffed animal, coloring book to patient or family member [] Provided Communion [] Anointing/[place] [] Salvation [x] Completed spiritual assessment [] Other: Impact on Illness or Injury [] Angry [] Fearful [] Anxious [] Often cries [] Exhaustion [] Unable to work [] Unable to attend mandaeism [] Unable to walk/stand [] Unable to read [] Unable to drive [] Unable to eat/drink [] Unable to sleep [] Unable to be with family [] Patient intubated [] Other: Summary Time spent with patient 10 min
[2021-03-30 11:21] LABS: Glucose Point of Care 254 mg/dL (70-110)
--- NOTE | 2021-03-30 11:41 | ECG_ITS ---
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 Measurements Intervals [place] Rate: 95 P: [place]: QRS: -12 QRSD: 107 T: 0 QT: 326 QTc: 411 Interpretive Statements POSSIBLE ATRIAL FIBRILLATION INFERIOR MYOCARDIAL INFARCTION , PROBABLY OLD [40+ ms Q WAVE AND/OR ST/T ABNORMALITY IN II/aVF] ANTEROSEPTAL MYOCARDIAL INFARCTION , PROBABLY OLD [40+ ms Q WAVE IN V1-V4] Compared to ECG 03/21/2021 11:16:25 Sinus rhythm no longer present Myocardial infarct finding still present Electronically Signed On 03-31-2021 10:29:28 SUPPLEMENTAL NURSE by Maribel Infante M.D. [id number]
--- NOTE | 2021-03-30 11:41 | W.PM.EVENTAC ---
Event Note Event Note: 36 beat wide-complex tachycardia suspected VT asymptomatic. Electrolyte changes recently. Potassium is down to 3.7. Mag down to 1.7. Will give cautiously 1 g of mag, 20 mEq potassium, no more given renal failure. Has history of CAD, start on low-dose metoprolol 12.5 mg twice daily. Monitor on telemetry. We will also check troponin EKG series.
--- NOTE | 2021-03-30 11:54 | PC.SOCIAL ---
IMM Update pg 2 of IMM updated and reviewed w/ patient. Copy provided and copy in chart updated.
[2021-03-30] MEDS: potassium chloride ER 20 mEq Tablet PO (12:22)
[2021-03-30] MEDS: metoprolol tartrate 25 mg Tablet 12.5 MG PO ×2 (12:27→22:55)
[2021-03-30 12:52] LABS: Troponin(5th) Baseline 114 ng/L (0-15)
--- NOTE | 2021-03-30 13:41 | ECG_ITS ---
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 Measurements Intervals [place] Rate: 86 P: [place]: QRS: -16 QRSD: 119 T: 17 QT: 385 QTc: 462 Interpretive Statements ATRIAL FIBRILLATION MODERATE INTRAVENTRICULAR CONDUCTION DELAY [110+ ms QRS DURATION] NONSPECIFIC T-WAVE ABNORMALITY Compared to ECG 03/30/2021 11:50:42 Intraventricular conduction delay now present T-wave abnormality now present Myocardial infarct finding no longer present Electronically Signed On 03-30-2021 15:26:01 CORK SLABS SAWYER by Maribel Infante M.D. [id number]
[2021-03-30 15:10] LABS: Troponin 5 2HR 116.6 ng/L (0-15); Troponin 5 2HR Delta 2.6 ABS# (0-10)
[2021-03-30 17:31] LABS: Glucose Point of Care 230 mg/dL (70-110)
--- NOTE | 2021-03-30 17:41 | ECG_ITS ---
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 Measurements Intervals [place] Rate: 92 P: [place]: QRS: -22 QRSD: 122 T: 33 QT: 373 QTc: 463 Interpretive Statements ATRIAL FIBRILLATION BORDERLINE LEFT AXIS DEVIATION [QRS AXIS < -20] MODERATE INTRAVENTRICULAR CONDUCTION DELAY [110+ ms QRS DURATION] Compared to ECG 03/30/2021 13:32:31 T-wave abnormality no longer present Electronically Signed On 04-02-2021 12:21:14 MARKETING COORDINATOR by Omer Hernandez M.D. [id number]
[2021-03-30 19:40] LABS: Troponin 5 6HR 107.5 ng/L (0-15); Troponin 5 6HR Delta -6.5 ng/L (0-12)
[2021-03-30] MEDS: tamsulosin 0.4 mg Capsule PO (20:32)
[2021-03-30] MEDS: duloxetine 20 mg Capsule PO (20:32)
[2021-03-30] MEDS: gabapentin 100 mg Capsule PO (20:32)
[2021-03-30 20:48] LABS: Glucose Point of Care 210 mg/dL (70-110)
[2021-03-31] VITALS: BP 99/60; PULSE 92; RESP 17; TEMP 36.4; O2SAT 96
[2021-03-31] MEDS: acetaminophen 325 mg Tablet 650 MG PO (02:28)
[2021-03-31 04:00] VITALS: BP 118/76; PULSE 91; RESP 18; TEMP 36.4; O2SAT 97
[2021-03-31 05:30] LABS: Basophils % 0.9 %; Eosinophils # 0.3 10^3/uL (0.0-0.8); Eosinophils % 7.3 %; Hematocrit 28.9 % (42.0-52.0); Hemoglobin 8.2 g/dL (11.7-16.6); Lymphocytes # 0.7 10^3/uL (0.8-4.8); Lymphocytes % 14.6 %; Mean Corpuscular HGB Conc 28.4 g/dL (30.0-36.0); Mean Corpuscular Hemoglobin 28.5 pg (28.0-34.0); Mean Corpuscular Volume 100.3 fl (80-94); Mean Platelet Volume 10.9 fL (7.4-10.4); Monocytes # 0.4 10^3/uL (0.2-0.9); Monocytes % 9.7 %; Neutrophils # 3.04 10^3/uL (1.8-7.7); Neutrophils % 67.1 %; Nucleated Red Blood Cells % 0 %; Platelet Count 156 10^3/cmm (130-400); Red Blood Count 2.88 10^6/uL (4.1-5.3); Red Cell Distribution Width 15.8 % (12.1-15.1); White Blood Count 4.5 10^3/uL (4.0-10.0)
[2021-03-31 05:49] LABS: Alanine Aminotransferase 8 U/L (0-41); Albumin Level 3.4 g/dL (3.5-5.2); Alkaline Phosphatase 56 IU/L (40-130); Aspartate Amino Transferase 12 U/L (0-40); Blood Urea Nitrogen 43 mg/dL (8-23); Calcium 8.1 mg/dL (8.5-10.5); Carbon Dioxide 29 mmol/L (22-29); Chloride 97 mmol/L (98-107); Globulin 3.5 g/dL (1.3-4.6); Glucose 186 mg/dL (65-115); Magnesium 1.9 mg/dL (1.7-2.3); Osmolality Calculated 300 mOsm/kg (285-295); Phosphorus 3.7 mg/dL (2.5-4.5); Sodium 137 mmol/L (136-145); Total Bilirubin 0.2 mg/dL (0.15-1.2); Total Protein 6.9 g/dL (6.6-8.7)
[2021-03-31 06:00] VITALS: PULSE 91
[2021-03-31] MEDS: heparin 5,000 unit/mL INJ 1 mL 5000 UNIT SUBCUT (06:03)
[2021-03-31] MEDS: FUROsemide 10 mg/mL SDV 10mL 80 MG IVP (06:05)
[2021-03-31 06:22] LABS: Glucose Point of Care 204 mg/dL (70-110)
[2021-03-31 07:55] VITALS: PULSE 106; RESP 18; O2SAT 96
[2021-03-31] MEDS: allopurinol 100 mg Tablet PO (08:22)
[2021-03-31] MEDS: aspirin 81 mg EC Tablet PO (08:22)
[2021-03-31] MEDS: cyanocobalamin 1,000 mcg/mL SDV 1000 MCG IM (08:22)
[2021-03-31] MEDS: pantoprazole DR 40 mg Tablet PO (08:22)
[2021-03-31] MEDS: clopidogrel 75 mg Tablet PO (08:22)
[2021-03-31] MEDS: docusate sodium 100 mg Capsule PO (08:22)
[2021-03-31] MEDS: calcium acetate 667 mg Capsule PO ×2 (08:22→12:50)
[2021-03-31] MEDS: ferrous sulfate EC 325 mg Tablet PO (08:22)
[2021-03-31] MEDS: isosorbide mononitrate ER 30 mg Tablet 90 MG PO (08:22)
[2021-03-31] MEDS: insulin lispro 100 unit/1 mL SUBCUT ×2 (08:23→12:50)
[2021-03-31] MEDS: insulin glargine 100 units/1 mL 10 UNIT SUBCUT (08:23)
[2021-03-31] MEDS: nystatin powder 15 gm Btl 1 APPLIC TOPICAL (08:23)
[2021-03-31] MEDS: fluticasone nasal spray 16gm Btl 2 SPRAY INTRANASAL (08:23)
[2021-03-31 08:28] VITALS: BP 146/91; PULSE 120; RESP 18; TEMP 36.4; O2SAT 90
--- NOTE | 2021-03-31 11:23 | PM.DCS ---
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, low-grade, around the head of the pancreas/duodenum, with lymph node prominence, treated with sandostatin, follows with Dr Allen, not a surgical candidate (7) Prostate cancer: Status: Chronic (8) Iron deficiency anemia: Status: Chronic (9) Diabetic ulcer of right foot: Status: Chronic (10) Peripheral vascular disease: Status: Chronic Permanent problem details: including carotid disease (11) Degenerative lumbar spinal stenosis: Status: Acute (12) Morbid obesity: Status: Chronic Reason for Visit Reason for Visit: ELEVATED RENAL LABS Hospital Course Hospital Course Pleasant 81-year-old gentleman brought to the hospital due to worsening renal function found on routine labs at assisted facility, without improvement in renal function, with acidosis, requiring BiPAP support transiently, treated with Lasix, producing urine, but still required initiation of hemodialysis. Tunneled dialysis catheter placed on 03/25. Not found requiring additional hemodialysis today, and will continue dialysis on outpatient basis with [facility] schedule for 2:15 PM on Friday. Fox placed for urinary retention presentation, although did not appear to be significantly help renal function. CHF, fluid overload improved with hemodialysis. TTE with EF 45-50%, mild aortic stenosis, trace aortic regurgitation, mild to moderate MVR, moderate TVR. Unchanged from prior. Noted elevated troponin around 115, without peak, but found to have new atrial fibrillation, additionally episode of 36 beats of VT, but more likely A. fib with RVR with aberrant conduction. Previously did not tolerate standing metoprolol due to hypotension. Did well with metoprolol here in the hospital, for now continued on as-needed basis so as to avoid hypotension. As per discussion with him the risks and benefits is started on Eliquis for stroke risk reduction. Once Eliquis is on board for 3 more weeks, consider starting amiodarone as does not have other good options for rate control, discontinuing metoprolol so as to reduce risk of CVA with possible pharmacologic cardioversion. Plavix stopped with initiation of Eliquis. With troponin abnormality, new A. fib, CHF, he is referred for additional assessment by stress testing given also history of CAD. Asked to follow-up with cardiology. In hospital also treated with course of Levaquin vancomycin for possible pneumonia. Completed antibiotics here which were discontinued. Vancomycin also covered possible cellulitis of right lower extremity, with underlying PVD. Wound care is continued for diabetic foot ulcer with Betadine paint. Continue optimization of chronic conditions including diabetes, hypertension. Resume under follow-up for chronic conditions including with oncology for neuroendocrine tumor and prostate cancer. Physical Exam Const: COMMON NORMALS: no acute distress and patient oriented x3 GENERAL APPEARANCE: cooperative NUTRITIONAL APPEARANCE: obese morbidly obese ORIENTATION/CONSCIOUSNESS: Yes awake HENMT: COMMON NORMALS: oropharynx normal Neck/C-Spine: COMMON NORMALS: no JVD Chest: OTHER: R chest HD cath Resp: COMMON NORMALS: normal respiratory effort and clear to auscultation bilaterally AUSCULTATION: clear to auscultation bilaterally Cardio: COMMON NORMALS: no JVD, S1 normal heart sound present, S2 normal heart sound present and No murmurs present (Cardio) RHYTHM: abnormal rhythm irregularly irregular HEART SOUNDS: S1 normal heart sound present and S2 normal heart sound present GI: COMMON NORMALS: Normal to inspection, nondistended, normoactive bowel sounds present, Soft to palpation and non-tender PALPATION: Yes Soft to palpation Extremity: COMMON NORMALS: no joint enlargement GENERAL: Yes edema (1+ BL) Neuro: COMMON NORMALS: patient oriented x3 and moves all extremities Skin: GENERAL SKIN EXAM: dry skin (scaly) and other (Chronic stasis changes BL) Urinary Catheter Management: Fox: Cath Placed During This Visit: yes Reason for Continuing Indwelling Catheter: Acute Urinary Retention or Obstruction Urinary Catheter Date of Insertion: 03/21/21 Urinary Catheter Time of Insertion: 22:45 Discharge Data Studies Completed and Pending Completed Studies During Hospitalization Category Date Time Status XR chest 1V portable [id number] Stat Exams 03/21/21 11:11 Completed US echo complete [CV. echo complete* [id number]] Urgent Ultrasound 03/22/21 09:15 Completed US renal BI* [id number] Urgent Ultrasound 03/22/21 09:15 Completed Pending at discharge Category Date Time Status Complete Blood Count w/Auto AM LABS Lab 04/01/21 04:00 Ordered Complete Blood Count w/Auto AM LABS Lab 04/02/21 04:00 Ordered Vitamin D 1,25 Dihydroxy Routine Lab 03/25/21 09:36 Received Radiology Impressions Chest X-Ray 03/21/21 11:11 IMPRESSION: 1. Shallow inspiration with cardiomegaly. 2. Volume loss LEFT lower lobe with bilateral lower lobe infiltrates. LEFT hemidiaphragm is obscured. 3. Probable small bilateral pleural effusions. 4. Advanced chronic emphysematous changes. Renal Ultrasound 03/22/21 09:15 IMPRESSION: 1. LEFT kidney is not identified probably due to body habitus. No history of prior nephrectomy. 2. Normal size RIGHT kidney with a stable RIGHT renal cyst. C-Arm Fluoroscopy 03/25/21 10:23 IMPRESSION: Intraoperative imaging during dialysis catheter placement. Laboratory Results WBC 4.5 10^3/uL (4.0-10.0) 03/31/21 04:42 Corrected WBC Cancelled 03/24/21 15:35 RBC 2.88 10^6/uL (4.1-5.3) L 03/31/21 04:42 Hgb 8.2 g/dL (11.7-16.6) L 03/31/21 04:42 Hct 28.9 % (42.0-52.0) L 03/31/21 04:42 MCV 100.3 fl (80-94) H 03/31/21 04:42 MCH 28.5 pg (28.0-34.0) 03/31/21 04:42 MCHC 28.4 g/dL (30.0-36.0) L 03/31/21 04:42 RDW 15.8 % (12.1-15.1) H 03/31/21 04:42 Plt Count 156 10^3/cmm (130-400) 03/31/21 04:42 MPV 10.9 fL (7.4-10.4) H 03/31/21 04:42 Gran % Cancelled 03/24/21 15:35 Neut % (Auto) 67.1 % 03/31/21 04:42 Lymph % (Auto) 14.6 % 03/31/21 04:42 [place] % (Auto) 9.7 % 03/31/21 04:42 Eos % (Auto) 7.3 % 03/31/21 04:42 Baso % (Auto) 0.9 % 03/31/21 04:42 Neut # (Auto) 3.04 10^3/uL (1.8-7.7) 03/31/21 04:42 Lymph # (Auto) 0.7 10^3/uL (0.8-4.8) L 03/31/21 04:42 [place] # (Auto) 0.4 10^3/uL (0.2-0.9) 03/31/21 04:42 Eos # (Auto) 0.3 10^3/uL (0.0-0.8) 03/31/21 04:42 Baso # (Auto) 0.0 10^3/uL (0.0-0.1) 03/31/21 04:42 Absolute Gran (auto) Cancelled 03/24/21 15:35 Nucleated RBC % (auto) 0 % 03/31/21 04:42 Nucleated RBCs # 0.0 /100WBC 03/31/21 04:42 Specimen Type Arterial 03/26/21 03:45 Sample Site Radial, left 03/26/21 03:45 ABG pH 7.25 (7.35-7.45) L 03/26/21 03:45 ABG pCO2 57.1 mmHg (35-45) H 03/26/21 03:45 ABG pO2 94.7 mmHg (80.0-100.0) 03/26/21 03:45 ABG HCO3 25.0 mmol/L (22-26) 03/26/21 03:45 ABG O2 Saturation 95.5 03/25/21 08:30 ABG Base Excess -2.5 mmol/L (-2.0-2.0) L 03/26/21 03:45 Vijay Test Pos 03/26/21 03:45 A-a O2 Gradient Not Reportable 03/25/21 08:30 Hematocrit 26.9 % (42-52) L 03/26/21 03:45 Hgb O2 Saturation 93.2 % (95-100) L 03/25/21 08:30 Carboxyhemoglobin 1.3 %THgb (0.4-20.1) 03/25/21 08:30 Methemoglobin 1.1 % (0.4-1.5) 03/25/21 08:30 Total Hemoglobin 8.5 g/dL (14-18) L 03/25/21 08:30 Sodium 143.0 mmol/L (131-143) 03/25/21 08:30 Potassium 4.2 mmol/L (3.5-5.0) 03/25/21 08:30 Glucose 83.0 mg/dL (70-115) 03/25/21 08:30 Ionized Calcium 0.9 mmol/L (1.1-1.4) L 03/25/21 08:30 O2 Delivery Device Nc 03/26/21 03:45 O2 Liters/Min 5.0 % 03/26/21 03:45 FiO2 3.0 % 03/25/21 08:30 Rn Bsn ID foreign 03/26/21 03:45 Sodium 137 mmol/L (136-145) 03/31/21 04:42 Potassium 4.0 mmol/L (3.5-5.1) 03/31/21 04:42 Chloride 97 mmol/L (98-107) L 03/31/21 04:42 Carbon Dioxide 29 mmol/L (22-29) 03/31/21 04:42 Anion Gap 15.0 (5-19) 03/31/21 04:42 BUN 43 mg/dL (8-23) H 03/31/21 04:42 Creatinine 4.5 mg/dL (0.7-1.2) H 03/31/21 04:42 GFR Calculation Not Reportable 03/31/21 04:42 Glucose 186 mg/dL (65-115) H 03/31/21 04:42 POC Glucose 204 mg/dL (70-110) H 03/31/21 06:11 Calculated Osmolality 300 mOsm/kg (285-295) H 03/31/21 04:42 Uric Acid 5.8 mg/dL (3.4-7.0) 03/29/21 09:14 Calcium 8.1 mg/dL (8.5-10.5) L 03/31/21 04:42 Phosphorus 3.7 mg/dL (2.5-4.5) 03/31/21 04:42 Magnesium 1.9 mg/dL (1.7-2.3) 03/31/21 04:42 Iron 46 ug/dL (59-158) L 03/22/21 04:57 TIBC 153 mcg/dl 03/22/21 04:57 % Saturation 30.0 % (20-50) 03/22/21 04:57 Unsat Iron Binding 107 ug/dL (112-347) L 03/22/21 04:57 Ferritin 333 ng/mL (30-400) 03/26/21 03:40 Total Bilirubin 0.2 mg/dL (0.15-1.2) 03/31/21 04:42 AST 12 U/L (0-40) 03/31/21 04:42 ALT 8 U/L (0-41) 03/31/21 04:42 Alkaline Phosphatase 56 IU/L (40-130) 03/31/21 04:42 Creatine Kinase 91 U/L (39-308) 03/22/21 08:55 Troponin T Gen 5 ng/L 110 ng/L (0-15) H* 03/22/21 04:57 Troponin T Baseline 114 ng/L (0-15) H* 03/30/21 12:19 Troponin T 120 Minute 116.6 ng/L (0-15) H 03/30/21 14:09 Delta Troponin T 2.6 ABS# (0-10) 03/30/21 14:09 Troponin T Hi Sens 6Hr 107.5 ng/L (0-15) H 03/30/21 18:45 Troponin T Hi Sens 6Hr Delta -6.5 ng/L (0-12) L 03/30/21 18:45 NT-Pro-B Natriuret Pep 47556 pg/mL (0-450) H 03/21/21 20:26 Total Protein 6.9 g/dL (6.6-8.7) 03/31/21 04:42 Albumin 3.4 g/dL (3.5-5.2) L 03/31/21 04:42 Globulin 3.5 g/dL (1.3-4.6) 03/31/21 04:42 Free PSA 0.4 ng/mL 03/22/21 12:30 % Free PSA 17 % (calc) (>25) L 03/22/21 12:30 Total PSA 2.4 ng/mL (< OR = 4.0) 03/22/21 12:30 Vitamin B12 902 pg/mL (232-1245) 03/22/21 04:57 25-OH Vitamin D Total 22 ng/mL (30-100) L 03/26/21 03:40 Procalcitonin 0.17 ng/mL (0-0.5) 03/22/21 04:57 TSH 3.09 uIU/mL (0.27-4.20) 03/22/21 08:55 PTH Intact 367.0 pg/mL (15-65) H 03/25/21 09:36 Calcium (PTH Intact) 6.3 mg/dL (8.5-10.5) L 03/25/21 09:36 Urine Color Brown (Yellow) 03/22/21 12:00 Urine Appearance Cloudy (CLEAR) 03/22/21 12:00 Urine pH 6.5 (5-7) 03/22/21 12:00 Ur Specific [place] 1.020 (1.005-1.030) 03/22/21 12:00 Urine Protein 3+ (Negative) H 03/22/21 12:00 Urine Glucose (UA) Norm (Normal) 03/22/21 12:00 Urine Ketones 1+ (Negative) H 03/22/21 12:00 Urine Blood 3+ (Negative) H 03/22/21 12:00 Urine Nitrate Negative (Negative) 03/22/21 12:00 Urine Bilirubin Neg (Negative) 03/22/21 12:00 Urine Urobilinogen Neg mg/dL (Negative) 03/22/21 12:00 Ur Leukocyte Esterase 1+ (Negative) H 03/22/21 12:00 Urine RBC Too numerous to cnt /hpf (0-2) H 03/22/21 12:00 Urine WBC 5-10 /hpf (0-5) H 03/22/21 12:00 Ur Squamous Epith Cells Rare /hpf (0-5) 03/22/21 12:00 Amorphous Sediment Not Reportable 03/22/21 12:00 Urine Bacteria None /hpf (NONE) 03/22/21 12:00 U Random Total Protein 368 mg/dL 03/22/21 12:00 Ur Random Sodium 56 mmol/L 03/22/21 12:00 Ur Random Sodium Cancelled 03/22/21 12:00 Ur Random Urea Nitrogn 299 mg/dL 02/10/22 12:00 Ur Random Urea Nitrogn Cancelled 03/22/21 12:00 Urine Creatinine 89 mg/dL (39-259) 03/22/21 12:00 Urine Creatinine Cancelled 03/22/21 12:00 Protein/Creatinin Ratio 4.13 mg/mg CR 03/22/21 12:00 Vancomycin Trough 5.8 ug/mL (10-15) L 03/25/21 19:28 Random Vancomycin 14.6 ug/mL (20.0-40.0) L 03/28/21 05:28 Coronavirus 229E (PCR) Not detected (NOT DETECT) 03/21/21 12:05 Hep Bs Antigen Non-reactive (Nonreactive) 03/25/21 09:36 Hep Bs Antibody < 3.5 (11.5-1000) L 03/25/21 09:36 Hepatitis C Antibody Non-reactive (Nonreactive) 03/25/21 09:36 SARS-CoV-2 (PCR) Not detected (NOT DETECT) 03/21/21 12:05 Vitals Last Vital Signs Temp 97.5 F L 03/31/21 08:28 Pulse 120 H 03/31/21 08:28 Resp 18 03/31/21 08:28 BP 146/91 03/31/21 08:28 Pulse Ox 90 03/31/21 08:28 Discharge Plan Discharge Patient Disposition: Xfer SNF Condition: Stable Prescriptions: New allopurinol 100 mg Tablet 100 mg PO DAILY Qty: 90 0RF metoprolol tartrate 25 mg Tablet 12.5 mg PO Q12H PRN (Reason: Tachycardia) Qty: 30 0RF Calphron 667 mg Tablet 667 mg PO TIDWM Qty: 90 0RF docusate sodium 100 mg Capsule 100 mg PO BID Qty: 60 0RF Nystop 100,000 unit/gram Powder 1 applic topical BID Qty: 30 0RF Eliquis 2.5 mg tablet 2.5 mg PO BID Qty: 60 0RF finasteride 5 mg tablet 5 mg PO DAILY Qty: 90 0RF Continued isosorbide mononitrate 60 mg tablet extended release 24 hr 90 mg PO DAILY@08 0RF tamsulosin [Flomax] 0.4 mg Capsule 0.4 mg PO BEDTIME@20 0RF pantoprazole 40 mg Tablet,Delayed Release (Dr/Ec) 40 mg PO DAILY@06 0RF ondansetron 4 mg tablet,disintegrating 4 mg PO Q8H PRN (Reason: nausea and vomiting) Qty: 10 0RF torsemide 20 mg Tablet 20 mg PO DAILY@08 0RF nitroglycerin 0.4 mg Tablet, Sublingual 0.4 mg SUBLINGUAL Q5M PRN (Reason: Chest Pain) 0RF gabapentin 100 mg Capsule 100 mg PO BEDTIME@20 0RF bicalutamide 50 mg Tablet 50 mg PO DAILY@08 0RF duloxetine 20 mg Capsule,Delayed Release(Dr/Ec) 20 mg PO BEDTIME@20 0RF insulin aspart U-100 [Novolog Flexpen U-100 Insulin] 100 unit/mL (3 mL) Insulin Pen 5 unit SUBCUT TID@07,,17 Qty: 0 0RF albuterol sulfate 90 mcg/actuation Hfa Aerosol Inhaler 1 puff inhalation QID PRN (Reason: Shortness Of Breath) 0RF acetaminophen-codeine 300-30 mg Tablet 1 tab PO Q6H PRN (Reason: Pain) 0RF ferrous sulfate 325 mg (65 mg iron) Tablet 325 mg PO DAILY@08 0RF ergocalciferol (vitamin D2) 1,250 mcg (50,000 unit) Capsule 50,000 unit PO Q7D 0RF Rx Instructions: on fri Vitamin D3 25 mcg (1,000 unit) Tablet 25 mcg PO DAILY@08 0RF Lantus Solostar U-100 Insulin 100 unit/mL (3 mL) Insulin Pen 30 unit SUBCUT BID@08,20 0RF Vitamin B-12 5,000 mcg Tablet, Sublingual 5,000 mcg SUBLINGUAL DAILY@08 0RF Adult Low Dose Aspirin 81 mg tablet,delayed release (DR/EC) 81 mg PO DAILY@08 0RF Flonase Allergy Relief 50 mcg/actuation spray,suspension 2 spray INTRANASAL DAILY@08 0RF Rx Instructions: administer into each nostril Discontinued clopidogrel 75 mg Tablet 75 mg PO DAILY@08 0RF calcium 200 mg PO DAILY@08 0RF Discharge Orders: Discharge Order (Routine); Ordered 03/31/21 Ordered By: James Lugo Other Ambulatory Orders: Sestamibi Stress Test Request (Routine) Timeframe: 1 Week Facility: [facility] - Location: Cardiac Diagnostic Laboratory Ordered By: James Lugo Referrals: Nagi [Other] (Chair time 2:15 on Friday. ) [facility] [Outside] Umer Benavidez MD [Primary Care Provider] - 1 week Sasha Biggs FNP [Nurse Practitioner] - 2 weeks Discharge Diet: As Directed Discharge Activity: Increase activity as tolerated Patient Instructions: Apixaban (By mouth), Heart Failure (GEN), A-fib (Atrial Fibrillation) (GEN), Acute Kidney Injury (GEN) Activity Restrictions/Additional Instructions: HD on Friday Continue renal hemodialysis, diabetic, cardiac diet. Maintain Fox in place for additional week, then perform voiding trial. Fox had to be replaced in the hospital due to retention. Continue nasal cannula oxygen 3 L, wean off as tolerating. Referred for stress test due to troponin abnormality, although not suggestive of acute ME, but with CHF, as well as with new A. fib. For A. fib, give metoprolol on as needed basis for heart rate more than 110 in case of tachycardia is otherwise heart rates maintained in good range. Previously hypotensive with standing metoprolol. Started on anticoagulation, after 3 or more weeks of Eliquis anticoagulation consider starting amiodarone, discontinuing metoprolol. Continue follow-up regarding chronic problems, including oncology follow-up for neuroendocrine tumor, prostate cancer. Continue wound care, Betadine paint to right foot and heel, open to air in bed and covered when up Discharge Attestations Time Spent in Discharge Care*: greater than 30 min Status at Discharge: Cognitive status at discharge: cognitively intact, Behavioral status at discharge: cooperative, Quality Metrics Clinical Quality Measures [ No reported AMI, CVA or VTE this stay] Coding Level of Care Code Acute g [facility] note Diagnoses Acute renal failure N17.9 CHF (congestive heart failure) I50.9 Coronary disease I25.10 Insulin dependent diabetes mellitus E11.9; Z79.4 Hypertension I10 Neuroendocrine tumor D3A.8 Prostate cancer C61 Iron deficiency anemia D50.9 Diabetic ulcer of right foot E11.621; L97.519 Peripheral vascular disease I73.9 Degenerative lumbar spinal stenosis M48.061 Morbid obesity E66.01
[2021-03-31 12:09] LABS: Glucose Point of Care 214 mg/dL (70-110)
--- NOTE | 2021-03-31 12:09 | PC.NURSE ---
Report called to Ingrid Valerio LPN, at [facility].
--- NOTE | 2021-03-31 12:11 | PC.NURSE ---
Attempted to notify daughter, Jennifer, of DC. No answer
[2021-03-31 12:14] VITALS: BP 114/69; PULSE 91; RESP 16; TEMP 36.8; O2SAT 97
--- NOTE | 2021-03-31 14:00 | PM.PN ---
Subjective Subjective: I am seeing him in follow up for his renal failure. No chest pain or shortness of breath Medications: Medication Review Details: Reviewed Vitals/I&O/Wt Last Vital Signs Temp 98.3 F 03/31/21 12:14 Pulse 91 03/31/21 12:14 Resp 16 03/31/21 12:14 BP 114/69 03/31/21 12:14 Pulse Ox 97 03/31/21 12:14 03/30/21 03/31/21 03/31/21 22:59 06:59 14:59 Intake Total 52 / 532 460 / 992 240 / 240 Output Total 250 / 250 500 / 750 550 / 550 Balance -198 / 282 -40 / 242 -310 / -310 Physical Exam Narrative: Pt AAO * 3, not in distress Urinary Catheter Management: Fox: Cath Placed During This Visit: yes Reason for Continuing Indwelling Catheter: Acute Urinary Retention or Obstruction Urinary Catheter Date of Insertion: 03/21/21 Urinary Catheter Time of Insertion: 22:45 Data : 03/31/21 04:42 03/31/21 04:42 A&P Assessment and plan (1) Acute renal failure: No indication for dialysis today. Ok to discharge pt as he is already set up for outpt dialysis as per hospitalist Status: Acute (2) Hypertension: BP stable Status: Chronic (3) CHF (congestive heart failure): No acute issues Status: Acute (4) Anemia: Follow hb Status: Acute Attestations Medical Necessity Statement*: Renal failure Coding Level of Care Code Acute Resident Physician In Radiology for [facility]ovi Diagnoses Acute renal failure N17.9 Hypertension I10 CHF (congestive heart failure) I50.9 Anemia D64.9
[2021-04-01 15:03] LABS: Vit D 1,25 (Oh)2, Total 11 pg/mL (18-72); Vit D2 1,25 (Oh)2 11 pg/mL; Vit D3 1,25 (Oh)2 <8 pg/mL
== END 2021-03-31 14:28 | disposition skilled nursing facility (03) | DRG 673 ==
LOC: ER 14:27 → MEDSURG 17:12 → ICU 03-25 12:56 → MEDSURG 03-27 15:03
PROVIDERS: Family Medicine; Internal Medicine; Internal Medicine Nephrology; Surgery; Admitting Provider Hospitalist; Emergency Provider Family Medicine; PCP Internal Medicine; Visit Provider Internal Medicine
PROC: 0JH60XZ Insertion of Tunneled Vascular Access Device into Chest Subcutaneous Tissue and Fascia, Open Approach (ICD-10-PCS; principal; 2021-03-25 10:05)
DX: N17.0 Acute kidney failure with tubular necrosis (principal); I50.43 Acute on chronic combined systolic (congestive) and diastolic (congestive) heart failure; J18.9 Pneumonia, unspecified organism; I13.0 Hypertensive heart and chronic kidney disease with heart failure and stage 1 through stage 4 chronic kidney disease, or unspecified chronic kidney disease; Z68.43 Body mass index [BMI] 50.0-59.9, adult; C7A.8 Other malignant neuroendocrine tumors; L97.419 Non-pressure chronic ulcer of right heel and midfoot with unspecified severity; E53.8 Deficiency of other specified B group vitamins; J44.9 Chronic obstructive pulmonary disease, unspecified; I25.10 Atherosclerotic heart disease of native coronary artery without angina pectoris; E78.5 Hyperlipidemia, unspecified; K21.9 Gastro-esophageal reflux disease without esophagitis; N18.4 Chronic kidney disease, stage 4 (severe); E11.22 Type 2 diabetes mellitus with diabetic chronic kidney disease; D50.9 Iron deficiency anemia, unspecified; E66.01 Morbid (severe) obesity due to excess calories; M19.90 Unspecified osteoarthritis, unspecified site; E11.51 Type 2 diabetes mellitus with diabetic peripheral angiopathy without gangrene; C61 Malignant neoplasm of prostate; Z79.51 Long term (current) use of inhaled steroids; Z79.4 Long term (current) use of insulin; I48.91 Unspecified atrial fibrillation; R00.0 Tachycardia, unspecified; I08.3 Combined rheumatic disorders of mitral, aortic and tricuspid valves; E55.9 Vitamin D deficiency, unspecified; M48.061 Spinal stenosis, lumbar region without neurogenic claudication; E11.621 Type 2 diabetes mellitus with foot ulcer; E87.5 Hyperkalemia; Z79.899 Other long term (current) drug therapy; Z90.79 Acquired absence of other genital organ(s); G47.30 Sleep apnea, unspecified
CPT/HCPCS: 36415; 36416; 36600; 51702; 71045; 76770; 77001; 80048; 80051; 80053; 80202; 81001; 82306; 82310; 82330; 82550; 82570; 82607; 82652; 82728; 82803; 82805; 82962; 83540; 83550; 83735; 83880; 83970; 84100; 84145; 84154; 84156; 84300; 84443; 84484; 84540; 84550; 85025; 86706; 86803; 87040; 87086; 87340; 87635; 90935; 93005; 93306; 94660; 96365; 96372; 96375; 97110; 97116; 97163; 97166; 97530; 97535; 99285; J0610; J1610; J1644; J1815 ×2; J1940; J1956; J2405; J2704; J3010; J3370; J3420; J3475; J3490; J7030; J7050; J8999; Q3014

== ENCOUNTER 2021-04-10 13:36 | Outpatient (CLI) | payer OTHER, MEDICARE, SELFPAY ==
[2021-04-10 14:05] LABS: Basophils # 0.1 10^3/uL (0.0-0.1); Basophils % 1.3 %; Eosinophils # 0.3 10^3/uL (0.0-0.8); Eosinophils % 6.2 %; Hematocrit 23.5 % (42.0-52.0); Hemoglobin 6.8 g/dL (11.7-16.6); Lymphocytes # 0.6 10^3/uL (0.8-4.8); Lymphocytes % 11.5 %; Mean Corpuscular HGB Conc 28.9 g/dL (30.0-36.0); Mean Corpuscular Hemoglobin 29.1 pg (28.0-34.0); Mean Corpuscular Volume 100.4 fl (80-94); Mean Platelet Volume 11.9 fL (7.4-10.4); Monocytes # 0.5 10^3/uL (0.2-0.9); Monocytes % 10.2 %; Neutrophils # 3.66 10^3/uL (1.8-7.7); Neutrophils % 70.4 %; Nucleated Red Blood Cells % 0 %; Platelet Count 180 10^3/cmm (130-400); Red Blood Count 2.34 10^6/uL (4.1-5.3); Red Cell Distribution Width 15.1 % (12.1-15.1); White Blood Count 5.2 10^3/uL (4.0-10.0)
== END 2021-04-10 13:37 | disposition home or self-care (01) ==
PROVIDERS: PCP Internal Medicine; Visit Provider Internal Medicine
DX: N18.30 Chronic kidney disease, stage 3 unspecified (principal)
CPT/HCPCS: 85025

== ENCOUNTER 2021-04-11 07:36 | Outpatient (CLI) | payer OTHER, SELFPAY ==
--- NOTE | 2021-04-11 08:00 | MR_ITS ---
WS: [id number] MRI LUMBAR SPINE NONCONTRAST HISTORY: LUMBAR SPINAL STENOSIS COMPARISON: CT 01/15/2021 TECHNIQUE: Sagittal and axial multisequence imaging is submitted. Quality of this examination is significantly degraded by body habitus and motion artifact. Patient verde d significant labored breathing and was falling asleep and twitching during the examination. Increase in the thoracic kyphosis. Increase in the lumbar lordosis. Advanced degenerative changes thr oughout the discs and vertebral bodies. There is increased T2 signal and marrow edema along the infer ior endplate of L5. Patient had a prior fracture in this location may be healed fracture or reactive marrow edema. Disc spaces are all narrowed and desiccated with large osteophytes. There is diffuse abnormal signal throughout the vertebral bodies. Variable signal on the T1 sequences but there is no increased T2 sig nal or abnormal signal on the STIR sequence other than within the L5 vertebral body. Conus terminates normally at L1. L1-L2: Disc bulging asymmetric to the LEFT. Suspect a LEFT foraminal mild disc protrusion. Facet join t arthritis. L2-L3: Diffuse osteophytic ridging and annular disc bulging. Mild foraminal stenosis. L3-L4: Moderate annular disc bulging and osteophytic ridging with mild ligamentum flavum hypertrophy and facet arthritis. Mild central and foraminal stenosis. L4-L5: 2 mm anterolisthesis of L4 with annular disc bulging and osteophytic ridging. There is encroac hment and narrowing of the central canal and foramen. There is at least moderate central stenosis wit h mild bilateral foraminal stenosis. Small disc protrusion in the LEFT foramen. L5-S1: Asymmetric disc bulging. No central stenosis. Mild bilateral foraminal stenosis, slightly grea ter on the RIGHT. MR/MR lumbar spine wo con* [id number] IMPRESSION: 1. This study is significantly degraded and limited by motion artifact and bod y habitus. Focal disc protrusions and contact on the nerve roots would not be r eadily visible on this examination due to the motion. 2. There is at least moderate central stenosis at L4-5 with mild foraminal sravanthi nosis. 3. Mild central and foraminal stenosis at L3-4. 4. Mild bilateral foraminal stenosis at L5-S1. 5. Mild anterolisthesis of L4 and L5.
--- NOTE | 2021-04-11 08:45 | MR_ITS ---
WS: [id number] MRI PELVIS without CONTRAST. COMPARISON: Pelvis CT 11/15/2020 Multiplanar, multisequence imaging is performed without contrast. There is significant degradation of quality due to patient's body habitus and motion artifact. Study was terminated early due to radiofrequency overheating. No signal abnormalities within the marrow. Mild narrowing of the hip joints. No edema within the prox imal femora. There is a small amount of presacral soft tissue thickening which may be due to prior tr eatment for the prostate carcinoma. There are several small indeterminate pelvic lymph nodes. The lar gest measures 15 mm in diameter along the LEFT common iliac artery. There are additional smaller junaid c chain lymph nodes. Small lymph nodes are stable in the inguinal regions. As compared to 11/30/2020 there probably has been no significant progression of the lymph nodes size. Urinary bladder is well distended. Prostate gland is not enlarged. Moderate fecal retention in the di stal colon. MR/MR pelvis wo con* [id number] IMPRESSION: 1. Limited evaluation of the pelvis due to multiple factors including body hab itus and overheating of the radiofrequency resulting in early termination of th e exam. 2. Small amount of presacral soft tissue thickening. May be related to prior p rostate carcinoma treatment. 3. Indeterminate small lymph nodes along the iliac chains and inguinal region. Very similar to the prior study of 11/30/2020. 4. No fracture or marrow signal abnormality.
== END 2021-04-11 07:37 | disposition home or self-care (01) ==
LOC: RAD 07:38
PROVIDERS: PCP Internal Medicine; Visit Provider Internal Medicine Medical Oncology
DX: M25.551 Pain in right hip (principal); R10.2 Pelvic and perineal pain; M48.061 Spinal stenosis, lumbar region without neurogenic claudication
CPT/HCPCS: 72148; 72195

== ENCOUNTER 2021-04-11 09:58 | Outpatient (CLI) | payer OTHER, SELFPAY | END 2021-04-11 09:59 | disposition home or self-care (01) | PROVIDERS: PCP Internal Medicine; Visit Provider Internal Medicine Medical Oncology | DX: C61 Malignant neoplasm of prostate (principal); D64.9 Anemia, unspecified | CPT/HCPCS: 36415; 86920 ==

== ENCOUNTER 2021-04-16 06:45 | Outpatient (RCR) | payer OTHER, SELFPAY ==
[2021-04-11 12:08] LABS: Basophils # 0.1 10^3/uL (0.0-0.1); Basophils % 0.8 %; Eosinophils # 0.1 10^3/uL (0.0-0.8); Eosinophils % 1.7 %; Hematocrit 23.6 % (42.0-52.0); Lymphocytes # 0.5 10^3/uL (0.8-4.8); Lymphocytes % 9.1 %; Mean Corpuscular HGB Conc 29.7 g/dL (30.0-36.0); Mean Corpuscular Hemoglobin 29.4 pg (28.0-34.0); Mean Corpuscular Volume 99.2 fl (80-94); Monocytes # 0.4 10^3/uL (0.2-0.9); Monocytes % 7.3 %; Neutrophils # 4.77 10^3/uL (1.8-7.7); Neutrophils % 80.6 %; Nucleated Red Blood Cells % 0 %; Platelet Count 216 10^3/cmm (130-400); Red Blood Count 2.38 10^6/uL (4.1-5.3); Red Cell Distribution Width 14.9 % (12.1-15.1); White Blood Count 5.9 10^3/uL (4.0-10.0)
[2021-04-12 10:15] VITALS: BP 96/60; PULSE 88; RESP 16; TEMP 35.9; O2SAT 94
[2021-04-12 10:30] VITALS: BP 101/67; PULSE 80; RESP 16; TEMP 35.8; O2SAT 100
[2021-04-12 10:45] VITALS: BP 97/68; PULSE 84; RESP 18; TEMP 36.1; O2SAT 100
[2021-04-12 10:48] LABS: Ferritin 570 ng/mL (30-400); Iron 31 ug/dL (59-158); Percent Saturation 23.3 % (20-50); Total Iron Binding Capacity 133 mcg/dl; Unsaturated Iron Binding 102 ug/dL (112-347)
[2021-04-12 11:15] VITALS: BP 95/68; PULSE 75; RESP 16; TEMP 36.1; O2SAT 100
[2021-04-12 12:17] VITALS: BP 105/77; PULSE 84; RESP 18; TEMP 35.8; O2SAT 99
[2021-04-16] MEDS: octreotide LAR depot 20 mg Kit 40 MG IM (12:00)
--- NOTE | 2021-04-16 14:46 | PC.PHAR ---
REGARDING PROCRIT: it was brought to my attention that the procrit given to Mr. Valadez previously does not meet medical necessity. After several phone calls and a convo with Dr. Allen, it was determined that only the business intelligence developer can write for procrit and the expectation is for it to be given at the dialysis clinic. Jaleesa Ballesteros called dialysis to inform them that Dr. Allen wishes for patient to be treated with an ANGELIC. Patient did NOT receive procrit ordered on 04/16/21 in the oncology clinic. patient is to receive dialysis later today.
== END 2021-05-10 23:59 | disposition home or self-care (01) ==
LOC: ONCMED 06:45
PROVIDERS: PCP Internal Medicine; Visit Provider Internal Medicine Medical Oncology
DX: C7A.8 Other malignant neuroendocrine tumors (principal); D50.8 Other iron deficiency anemias; E11.21 Type 2 diabetes mellitus with diabetic nephropathy; I25.119 Atherosclerotic heart disease of native coronary artery with unspecified angina pectoris; R53.82 Chronic fatigue, unspecified; Z79.818 Long term (current) use of other agents affecting estrogen receptors and estrogen levels
CPT/HCPCS: 36430; 82728; 83540; 83550; 85025; 86850; 86900; 86920; 96372; J2353; P9016

== ENCOUNTER 2021-05-15 10:03 | Outpatient (RCR) | payer OTHER, SELFPAY ==
[2021-05-15] MEDS: octreotide LAR depot 30 mg Kit IM (11:00)
--- NOTE | 2021-05-17 15:24 | ONC FU_ITS ---
Dr. Allen Patient Follow-Up Note Patient: Marco Antonio Valadez < Unit #: [id number]: 1940 Dicatated By: Jeyson Allen M.D.Date of Visit:May 15, 2021 Onc Med Follow-up/Prog Note Chief Complaint: Pancreatic neuroendocrine tumor/anemia. 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 He also has moderately severe anemia. He has a prior history of prostate cancer treated with cryoablation in 1999, in [facility]. 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 He has subsequently presented with progressive central abdominal pain, diarrhea and B12 deficiency. He underwent further workup at [facility]. Endoscopic ultrasound on 01/12/2014 showed 7.1 cm mass around the head of the pancreas but did not appear to be part of the liver, pancreas or duodenum. There was significant enlarged peripancreatic lymphadenopathy up to 2.1 cm as well as enlarged lymph nodes in the mediastinum and the lower paraesophageal area. Fine needle aspiration of the dominant mass revealed low-grade neuroendocrine carcinoma with immunohistochemistry positive for synaptophysin, chromogranin A and MIB1. Mitotic count was reported extremely low. CT scan on 01/20/2015 without contrast showed dominant mass in the head of the pancreas. He was deemed to be a poor surgical candidate. He was then followed by Dr. Donis in [facility]. 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 Baseline octreotide scan on 04/28/2014 revealed activity in the tip of the liver and abdominal central activity in the head of the pancreas and transverse colon; but CT correlate was not available for the comparison. He began on serial somatostatin injections monthly. He was first seen by Dr. Elliott on 08/22/2014. He reported no further abdominal pain, diarrhea, or flushing. In general his symptoms had markedly improved since initiation of injections. Restaging PET/CT on 11/19/2014 showed a single enlarging mass measuring 7.8 cm with SUV 4.8, centered at the head of the pancreas. Switching therapy to TKI was discussed, but he eventually decided against it, and sandostatin treatment was continued. As of August 2017 there have been no evidence of disease progression on his restaging octreotide scan, and repeat CT scans of the abdomen/pelvis in March 2018 showed stable pancreatic head mass measuring 8.5 x 7.6 cm. The solid-appearing left upper pole renal lesion also appeared stable from 2018, but it had increased compared to studies in 2017. His other medical illnesses include obesity, hypertension, hyperlipidemia, type II diabetes, coronary artery disease, GERD, and degenerative arthritis. He has chronic kidney disease, and he also has chronic anemia. He has had previous coronary angioplasty/stent placement. He has had treatment for prostate cancer which included cryosurgery in 1999 and orchiectomy 2000. He is a nonsmoker. INTERIM HISTORY: As of February 2018 there was further decrease in his hemoglobin to 9.5 g. His subsequent serum iron studies appeared to be consistent with iron deficiency with transferrin saturation 15.3% and ferritin 66.0 ng/mL. He then began a trial of oral iron supplementation with ferrous sulfate, which he did not tolerate due to constipation. In June 2018 he was given parenteral iron replacement with 2 infusions of Injectafer. During follow-up there was some increase in the hemoglobin/hematocrit levels, but he remained mildly anemic. He continued treatment with Sandostatin LAR. Restaging CT of the abdomen/pelvis on 10/02/2018 showed persistent, bulky, oval-shaped soft tissue mass arising within or adjacent to the head of the pancreas measuring 7.8 x 9 x 7.1 cm compared to 7.2 x 8.5 x 7.4 cm on the April 2018 study. The overall appearance was similar to the prior studies from April 2018 and November 2017. Bilateral low-density renal lesions appeared stable and appeared to be most likely cysts. His restaging CT abdomen/pelvis on 10/28/2019 showed stable appearance of the large, well-circumscribed soft tissue mass in the right abdomen, contiguous and inseparable from the pancreatic head. It measured 7.9 x 9.1 x 8.0 cm. Prominent iliac chain lymph nodes measuring up to 1.5 cm also showed long-term stability. There were indeterminate bilateral renal masses. In the absence of any evidence of disease progression, he continued monthly Sandostatin LAR injections. Repeat CT of the abdomen/pelvis on 11/30/2020 showed slight increase in the mass in the region of the pancreatic head/duodenum, measuring 7.5 x 9.6 x 9.7 cm. There was evidence of acute appearing L5 vertebral body fracture. Prominent iliac chain lymph nodes were noted to be stable. He is seen for a scheduled visit. He has not been feeling good generally. He has now been admitted to [facility]. He has been going to wound care for treatment of a diabetic foot ulceration with associated osteomyelitis. Last month he was seen in the emergency room with increased pain in his lower back/tailbone area and right hip. His lumbar spine CT showed evidence of healing L5 vertebral fracture compared the CT from November. There was evidence for lower lumbar degenerative disease with multilevel spinal stenosis, severe at L4-L5. His CT of the pelvis showed no acute findings. There were findings of moderate degenerative disease in the left hip. Further evaluation with MRI of the lumbar spine on 04/11/2021 showed at least moderate central stenosis at L4-5 and mild central and foraminal stenosis at L3-4. There was mild bilateral foraminal stenosis noted at L5-S1. MRI of the pelvis showed a small amount of presacral soft tissue thickening, possibly related to prior treatment for prostate cancer. Small lymph nodes along the iliac chains and inguinal region were felt to be indeterminate. There was no evidence for fracture or marrow signal abnormality. He is seen for a follow-up visit. He has continued hemodialysis 3 days a week. He continues to have very limited activity. He says his arthritis pain has been getting him down to the point that he can hardly stand up now. His ECOG score is 3. Appetite is not good. He complains that he has no taste. He has not had fever or night sweats. He sometimes has sweating in association with low blood sugar. He complains that he cannot see as well. He has dry mouth and throat. He does not complain of cough. He says his breathing has been okay. He had to take nitroglycerin for chest pain yesterday. He occasionally has nausea. Bowel function remains adequate. He has virtually no urine output. He does not complain of headache. He does have dizziness. He has some numbness in the ulnar distribution on the left. Medications: Acetaminophen-Codeine 1 Tablet (of 300-30 mg) Oral q 6 hours PRN, Aspirin 1 Tablet (of 81 mg) Oral daily, Atorvastatin Calcium 0.5 Tablet (of 80 mg) Oral daily, Bicalutamide 1 Tablet (of 50 mg) Oral daily, Calcium + D 2 Tablet Oral daily, Clopidogrel Bisulfate 1 (75 mg) Tablet Oral daily, Clotrimazole (1 %) Cream Topical Take as Directed, DULoxetine HCl 1 Capsule (of 20 mg) Capsule Delayed Release Particles Oral daily, Famotidine 1 Tablet (of 20 mg) Oral b.i.d., Gabapentin 1 (100 mg) Capsule Oral at bedtime, Insulin Glargine (100 Units/mL) Subcutaneous at bedtime PRN, Isosorbide Mononitrate ER 1 Tablet (of 30 mg) Tablet SR 24 HR Oral daily, Lantus Subcutaneous, Loperamide HCl 2 Capsule (of 2 mg) Oral PRN, Nitroglycerin Tablet, sublingual Sublingual PRN, NovoLOG (100 Units/mL) Subcutaneous Take as Directed, Omeprazole 1 Capsule (of 40 mg) Capsule Delayed Release Oral daily, Torsemide 1 Tablet (of 20 mg) Oral daily Allergies: IV dye used for chemical stress test and metal steel . Vital Signs: Performed on May 15, 2021 10:37 Height - 68.00 in Temperature - 96.5 F (LOW) Pulse - 84 /min Respiration - 20 /min BP - 104/62 mm(hg) O2 Sat - 92 % (LOW) Pain - 7 Fatigue - 0 Physical Examination: Constitutional - He appears generally weak and palel. He has very limited mobiltiy, Eyes - Sclerae nonicteric. Conjunctivae clear, ENMT - No lesions noted in the oral cavity, Hematologic/Lymphatic - No cervical, clavicular, or axillary adenopathy, Respiratory - Lungs sound clear with some decrease in air movement bilaterally, Cardiovascular - Heart rhythm is irregular. There is a II/ systolic murmur. There is no gallop or rub noted, Abdomen - Distended. Liver and spleen are not enlarged. There is no abdominal mass or ascites noted and there is no inguinal adenopathy, Extremities - Chronic lower extremity edema, Neurologic - No focal neurologic deficits noted. Lab/Imaging: He had a repeat CBC on 05/08/2021, those results have not yet been reported. Problem List: 1. Low-grade neuroendocrine carcinoma of the pancreas, stage IV. 2. He has anemia which appears to be multifactorial. 3. Chronic kidney disease. 4. Obesity. 5. Hypertension. 6. Hyperlipidemia. 7. Type II diabetes. 8. Coronary artery disease. 9. Degenerative arthritis/degenerative disease of the spine. 10. He also has had treatment for prostate cancer. Bone scan in July 2015 was negative for metastatic disease. Problems Addressed with this Encounter and Plan: 1. 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 He was found to have a stage IV low-grade neuroendocrine carcinoma involving a large mass at the level of the pancreas with possible involvement in mediastinal and peripancreatic lymph nodes, though the latter was not confirmed by subsequent PET imaging. He was deemed not to be a surgical candidate. His symptoms of abdominal pain, diarrhea, and flushing improved with initiation of Sandostatin in April of 2014. During follow-up he has had persistent, large mass pancreatic head mass. It had shown long-term stability on follow-up CT scans. However, did show a slight increase in size on the most recent study from November 2020. As he was not a surgical candidate, I had opted to just continue his Sandostatin LAR injections. I will now try reducing the dosage to 30 mg monthly. I will tentatively plan a follow-up visit in 3 months. 2. He has moderately severe anemia. I have not determined a definite cause for it. He had previously been treated for iron deficiency, but he has since then maintained a normal transferrin saturation level. I also suspected that some component was due to the underlying renal failure, but his anemia has not been responsive to treatment with an erythropoietin stimulating agent, which he has been receiving through dialysis. The other likely cause would be a myelodysplastic syndrome, which would require bone marrow aspiration/biopsy for diagnosis. I have been reluctant to attempt that due to his poor performance status, his body habitus, and by the fact that his treatment options would be very limited. At least for now I will just be monitoring his blood counts and transfusing him as needed. I will continue, though, to monitor his blood counts weekly. Signed By: Jeyson Allen M.D. <<Signature on File>>
== END 2021-06-09 23:59 | disposition home or self-care (01) ==
LOC: ONCMED 10:03
PROVIDERS: PCP Internal Medicine; Visit Provider Internal Medicine Medical Oncology
DX: C7A.8 Other malignant neuroendocrine tumors (principal); C7B.8 Other secondary neuroendocrine tumors; E16.4 Increased secretion of gastrin; D64.9 Anemia, unspecified; E11.22 Type 2 diabetes mellitus with diabetic chronic kidney disease; N18.9 Chronic kidney disease, unspecified; I12.9 Hypertensive chronic kidney disease with stage 1 through stage 4 chronic kidney disease, or unspecified chronic kidney disease; E66.9 Obesity, unspecified; E78.5 Hyperlipidemia, unspecified; E11.59 Type 2 diabetes mellitus with other circulatory complications; I25.10 Atherosclerotic heart disease of native coronary artery without angina pectoris; M19.90 Unspecified osteoarthritis, unspecified site; M47.9 Spondylosis, unspecified; Z85.46 Personal history of malignant neoplasm of prostate; Z79.899 Other long term (current) drug therapy; Z79.818 Long term (current) use of other agents affecting estrogen receptors and estrogen levels
CPT/HCPCS: 99215; J2353

== ENCOUNTER → 2021-05-24 08:03 | Outpatient (BNVA) | payer MEDICARE, SELFPAY | PROVIDERS: PCP Internal Medicine; Visit Provider Nurse Practitioner Family | DX: L89.629 Pressure ulcer of left heel, unspecified stage (principal) | CPT/HCPCS: 99202; 99212; 99213; A6212 ==

== ENCOUNTER 2021-06-14 13:42 | Oncology outpatient (recurring) (ONCR) | payer MEDICARE, MEDICAID, SELFPAY ==
[2021-06-14] MEDS: octreotide LAR depot 30 mg Kit IM (14:31)
== END 2021-07-10 23:59 | disposition home or self-care (01) ==
PROVIDERS: PCP Internal Medicine; Visit Provider Internal Medicine Medical Oncology
DX: C7A.8 Other malignant neuroendocrine tumors (principal); D64.9 Anemia, unspecified; Z79.818 Long term (current) use of other agents affecting estrogen receptors and estrogen levels
CPT/HCPCS: 96372; 96401; J2353

== ENCOUNTER 2021-07-24 12:40 | Oncology outpatient (recurring) (ONCR) | payer OTHER, SELFPAY ==
[2021-07-24] MEDS: octreotide LAR depot 30 mg Kit IM (13:00)
== END 2021-08-09 23:59 | disposition home or self-care (01) ==
PROVIDERS: PCP Internal Medicine; Visit Provider Internal Medicine Medical Oncology
DX: C7A.098 Malignant carcinoid tumors of other sites (principal); Z79.818 Long term (current) use of other agents affecting estrogen receptors and estrogen levels
CPT/HCPCS: 96372; J2353

== ENCOUNTER 2021-08-21 13:44 | Oncology outpatient (recurring) (ONCR) | payer OTHER, SELFPAY ==
[2021-08-21] MEDS: octreotide LAR depot 30 mg Kit IM (14:52)
== END 2021-08-21 23:59 | disposition home or self-care (01) ==
PROVIDERS: PCP Internal Medicine; Visit Provider Internal Medicine Medical Oncology
DX: C7A.8 Other malignant neuroendocrine tumors (principal); Z79.818 Long term (current) use of other agents affecting estrogen receptors and estrogen levels; E16.4 Increased secretion of gastrin; N18.6 End stage renal disease; Z99.2 Dependence on renal dialysis; D63.1 Anemia in chronic kidney disease; Z85.46 Personal history of malignant neoplasm of prostate
CPT/HCPCS: 96372; 99214; 99215; J2353

== ENCOUNTER → 2021-09-11 11:54 | Outpatient (BNVA) | payer OTHER, MEDICARE, MEDICAID, SELFPAY | PROVIDERS: PCP Internal Medicine; Visit Provider Internal Medicine | DX: I87.8 Other specified disorders of veins (principal); E78.5 Hyperlipidemia, unspecified; G47.33 Obstructive sleep apnea (adult) (pediatric); I13.2 Hypertensive heart and chronic kidney disease with heart failure and with stage 5 chronic kidney disease, or end stage renal disease; E11.22 Type 2 diabetes mellitus with diabetic chronic kidney disease; N18.6 End stage renal disease; I50.42 Chronic combined systolic (congestive) and diastolic (congestive) heart failure; Z99.2 Dependence on renal dialysis; Z79.4 Long term (current) use of insulin; E16.4 Increased secretion of gastrin; E66.01 Morbid (severe) obesity due to excess calories; Z68.43 Body mass index [BMI] 50.0-59.9, adult; I25.10 Atherosclerotic heart disease of native coronary artery without angina pectoris; R60.0 Localized edema; I48.0 Paroxysmal atrial fibrillation | CPT/HCPCS: 99214 ==

== ENCOUNTER 2021-09-18 13:04 | Oncology outpatient (recurring) (ONCR) | payer OTHER, SELFPAY ==
[2021-09-18] MEDS: octreotide LAR depot 30 mg Kit IM (14:04)
== END 2021-10-10 23:59 | disposition home or self-care (01) ==
PROVIDERS: PCP Internal Medicine; Visit Provider Internal Medicine Medical Oncology
DX: C7A.098 Malignant carcinoid tumors of other sites (principal); Z79.818 Long term (current) use of other agents affecting estrogen receptors and estrogen levels
CPT/HCPCS: 96372; J2353

== ENCOUNTER 2021-10-16 13:36 | Oncology outpatient (recurring) (ONCR) | payer OTHER, SELFPAY ==
[2021-10-16] MEDS: octreotide LAR depot 30 mg Kit IM (15:01)
== END 2021-11-09 23:59 | disposition home or self-care (01) ==
PROVIDERS: PCP Internal Medicine; Visit Provider Internal Medicine Medical Oncology
DX: Z79.818 Long term (current) use of other agents affecting estrogen receptors and estrogen levels (principal); C7A.098 Malignant carcinoid tumors of other sites
CPT/HCPCS: 96372; J2353

== ENCOUNTER 2021-10-25 10:07 | Outpatient (CLI) | payer MEDICARE, MEDICAID, SELFPAY ==
--- NOTE | 2021-10-25 10:14 | US_ITS ---
WS: [id number] Left breast ultrasound, 10/25/2021 Clinical Data: LT BREAST LUMP Comparison: Mammogram, 10/25/2021 Findings: Imaging of the left nipple shows irregularity consistent with gynecomastia. No cysts or abnormal mass es are seen. US/US breast LT limited* [id number] Impression: Left breast gynecomastia, only clinical follow-up is necessary. BIRADS: 2-Benign FOLLOW UP: See Report
--- NOTE | 2021-10-25 10:14 | MM_ITS ---
WS: [id number] Left breast diagnostic digital mammogram, 10/25/2021 Clinical Data: LT BREAST LUMP Comparison: None. Findings: There is a density in the left breast with the density and composition typical of gynecomastia. No sp iculated masses or clustered calcifications are seen. There is a mole marker on the left breast. MM/[place] [id number] Impression: 1. Left breast gynecomastia. 2. Left breast ultrasound will be performed. BIRADS: 2-Benign FOLLOW UP: See Report The CAD wrap checker was used.
== END 2021-10-25 10:08 | disposition home or self-care (01) ==
PROVIDERS: PCP Internal Medicine; Visit Provider Internal Medicine Medical Oncology
DX: N63.20 Unspecified lump in the left breast, unspecified quadrant (principal); N62 Hypertrophy of breast
CPT/HCPCS: 76642; 77066

== ENCOUNTER 2021-11-08 09:46 | Outpatient (CLI) | payer OTHER, SELFPAY ==
[2021-11-08 10:39] VITALS: BMI 43.0
--- NOTE | 2021-11-08 10:42 | ECG_ITS ---
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 Interpretive Statements NAME OF STUDY: LEXISCAN SESTAMIBI STRESS TEST INDICATION: [Chest Pain] Procedure: At the baseline, the blood pressure was 135/91 mmHg with a heart rate of 75 bpm. The electrocardiogram showed atrial fibrillation with left axis deviation. The Lexiscan was infused over a period of 20 seconds. A total of 0.4 mg of Lexiscan was infused. The stress phase was continued for a total of 5 minutes. Heart rate was at the end of stress phase was 75 bpm and a blood pressure of 129/90 mmHg. The EKG at the peak infusion revealed atrial fibrillation with no significant ST-T wave changes. Sestamibi was injected 20 seconds after the Lexiscan infusion. Blood pressure at the end of recovery phase was 142/85 mmHg with a heart rate of 78 bpm. Conclusion: 1. Normal EKG response to Lexiscan infusion 2. No Lexiscan induced chest pain or cardiac arrhythmia. 3. Normal blood pressure and heart rate response. 4. Sestamibi/sestamibi perfusion scan pending; see separate report. Electronically Signed On 11-17-2021 21:04:14 CDT by Omer Hernandez M.D. [id number]
--- NOTE | 2021-11-08 10:43 | NMCV_ITS ---
NM yazmin perf SPECT r/s* [id number] Marco Antonio Valadez Age: 81 Gender: M : 1940 Exam Date: 11/08/2021 10:43 Ordering Phys: Phuong Urena Technologist: JORDAN Power Exam Location: [facility] Indications: CARDIAC EVALUATION STRESS TEST Please [facility] IMAGE PROTOCOL Rest/Stress 1 Lexiscan Day Radiopharmaceutical Dose (mCi) Administration Site Administered by Rest: Tc-99m 10.8 IV JORDAN Lew Sestamibi Stress:Tc-99m 32.8 IV JORDAN Lew Sestamibi Rest: 08-Nov-2021 60 Discovery 630 Stress: 08-Nov-2021 30 Discovery 630 0.4mg Lexiscan. Supine position only as patient was unable to lay prone. SPECT RESULTS Technical Quality: Good Raw Data Analysis: Normal Image Corrections: No attenuation or motion correction applied Summed Stress Score: 10 Summed Rest Score: 7 Summed Difference Score: 4 PERFUSION FINDINGS There is a large partially reversible perfusion defect in apical and apical anterior wall. There is fixed perfusion defect noted in the apical inferior and inferior wall. 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 There is a large sized prior infarct in the RCA territory. FUNCTIONAL RESULTS (calculated via Gated SPECT) Stress Image LV EF (%): 24 Stress EDV (mL):241 TID: 1.08 Stress ESV (mL):183 FUNCTIONAL FINDINGS: LV systolic function is severely reduced with severe global hypokinesis IMPRESSIONS 1. Abnormal myocardial perfusion imaging with large sized prior infarct noted in the LAD territory with annalise-infarct ischemia. There is large sized prior infarct in the RCA territory. 2. LV systolic function is severely reduced. Omer Hernandez MD (Electronically Signed) Final Date: 10 November 2021 22:19 S
[2021-11-08] MEDS: regadenoson 0.4 Mg/5 ml Syringe IVP (12:13)
[2021-11-08 12:51] VITALS: BP 142/85; PULSE 76
== END 2021-11-08 09:47 | disposition home or self-care (01) ==
LOC: CDL 09:47
PROVIDERS: PCP Internal Medicine; Visit Provider Nurse Practitioner Family
DX: I50.9 Heart failure, unspecified (principal); I48.0 Paroxysmal atrial fibrillation; I25.10 Atherosclerotic heart disease of native coronary artery without angina pectoris
CPT/HCPCS: 78452; 93017; A9500; J2785

== ENCOUNTER 2021-11-13 09:34 | Oncology outpatient (recurring) (ONCR) | payer OTHER, SELFPAY ==
[2021-11-13 10:09] LABS: Basophils # 0.1 10^3/uL (0.0-0.1); Eosinophils # 0.1 10^3/uL (0.0-0.8); Eosinophils % 1.6 %; Hemoglobin 10.3 g/dL (11.7-16.6); Lymphocytes # 0.6 10^3/uL (0.8-4.8); Lymphocytes % 11.4 %; Mean Corpuscular HGB Conc 29.4 g/dL (30.0-36.0); Mean Corpuscular Hemoglobin 29.9 pg (28.0-34.0); Mean Corpuscular Volume 101.4 fl (80-94); Mean Platelet Volume 11.9 fL (7.4-10.4); Monocytes # 0.4 10^3/uL (0.2-0.9); Monocytes % 8.4 %; Neutrophils % 77.4 %; Nucleated Red Blood Cells % 0 %; Platelet Count 125 10^3/cmm (130-400); Red Blood Count 3.45 10^6/uL (4.1-5.3); Red Cell Distribution Width 15.7 % (12.1-15.1); White Blood Count 4.9 10^3/uL (4.0-10.0)
[2021-11-13 10:32] LABS: Alanine Aminotransferase < 5 U/L (0-41); Alkaline Phosphatase 74 U/L (40-130); Anion Gap 14.2 (5-19); Aspartate Amino Transferase 7 U/L (0-40); Blood Urea Nitrogen 16 mg/dL (8-23); Globulin 3.7 g/dL (1.3-4.6); Osmolality Calculated 291 mOsm/kg (285-295); Potassium 4.2 mmol/L (3.5-5.1); Sodium 139 mmol/L (136-145); Total Bilirubin 0.5 mg/dL (0.15-1.2)
[2021-11-13 10:52] LABS: Ferritin 771 ng/mL (30-400); Iron 30 ug/dL (59-158); Percent Saturation 22.7 % (20-50); Total Iron Binding Capacity 132 mcg/dl; Unsaturated Iron Binding 102 ug/dL (112-347)
[2021-11-13] MEDS: octreotide LAR depot 30 mg Kit IM (10:55)
[2021-11-13 11:47] LABS: Albumin Level 3.3 g/dL (3.5-5.2); Calcium 8.1 mg/dL (8.5-10.5); Carbon Dioxide 34 mmol/L (22-29); Chloride 95 mmol/L (98-107); Glucose 136 mg/dL (65-115)
[2021-11-18 10:48] LABS: Serotonin Whole Blood <10 ng/mL (56-244)
[2021-11-26 15:15] LABS: Chromogranin A LC/MS/MS 1827 ng/mL (ADULTS: <311)
== END 2021-12-10 23:59 | disposition home or self-care (01) ==
PROVIDERS: PCP Internal Medicine; Visit Provider Internal Medicine Medical Oncology
DX: Z79.818 Long term (current) use of other agents affecting estrogen receptors and estrogen levels (principal); C7A.098 Malignant carcinoid tumors of other sites; N18.6 End stage renal disease; Z99.2 Dependence on renal dialysis; R19.7 Diarrhea, unspecified; R14.3 Flatulence
CPT/HCPCS: 36415; 80053; 82728; 83540; 83550; 84260; 85025; 86316; 96372; 96401; 99214; J2353

== ENCOUNTER 2021-12-27 05:48 | Outpatient (CLI) | payer OTHER, SELFPAY ==
[2021-12-27] VITALS (54 sets, daily range): BP systolic 126–158; BP diastolic 76–117; PULSE 68–98; RESP 0–22; TEMP 36.1–37.1; O2SAT 82–97; BMI 39.9
--- NOTE | 2021-12-27 06:00 | XACV_ITS ---
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 He has been having chest discomfort episodes and shortness of breath. He underwent stress test that was abnormal. * Left main artery: Patent LAD: Heavily calcified, diffuse disease. Moderate 60 to 70% mid LAD stenosis Left circumflex artery:Patent. OM 1 has a significant 70-80% stenosis at the ostium RCA: Chronic total occlusion of mid vessel.. * Has difficult access and difficulty in engaging catheters secondary to anatomy. * Coronary angiography shows right dominance. Conclusions 1. Left main artery: Patent LAD: Heavily calcified, diffuse disease. Moderate 60 to 70% mid LAD stenosis Left circumflex artery:Patent. OM 1 has a significant 70-80% stenosis at the ostium RCA: Chronic total occlusion of mid vessel.. 2. Patient has significant disease of ostium of OM 1, however, has no unstable symptoms. Will be treated medically. Recommendations * Aggressive risk factor modification. * Outpatient cardiology follow up in 4 weeks. Interventional RX Recommendation: medical therapy and/or counseling Diagnostic RX Recommendation: medical therapy and/or counseling Pressures Phase:Rest AO : 131 / 85 ( 106 ) @ 8:11:00 AM 136 / 96 ( 113 ) @ 8:21:00 AM 140 / 93 ( 112 ) @ 8:34:00 AM Clinical Evaluation EBL: 5mL-10mL Procedural Details Admit Source: Out Patient. Pre-Procedure Time Out. Identified patient by full name and date of as verbalized by the patient/guarantor. Does the consent match the physician's order: Yes. Accurate & Complete Informed Consent: Yes. Inpatient/Outpatient History & Physical on Chart: Yes. If H&P is completed, is and addenduem needed: No; If yes, is the addendum complete: N/A. Visualize and Verify Site with Patient/Guarantor: N/A. Relevant Radiology Images available: Yes. Relevant Radiology Images available: N/A. Pre-op teaching completed and patient verbalized understanding. The risks, benefits, and alternatives of sedation and/or procedure were discussed by physician. The patient agrees to continue. Procedure started. [facility] Clinical Fraility Score: 6: Moderately Frail. Chest Pain Symptom Assessment: Typical Angina Symptoms. Cardiovascular Instability: No,. 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 Correct patient, site and procedure confirmed by cath team. Current diagnosis: Chest Pain. PERRLA. Strong, equal hand box toe flanger stitchdowns bilaterally. Lungs clear x 5 lobes. IV Site on Arrival: 20 gauge in the right forearm. IV Fluids: 0.9% NaCl at KVO. 0 mL infused prior to labor delivery rn. Pre Procedural Pulses: bilateral dorsalis pedis was Doppled. Pre Procedural Pulses: bilateral posterior tibial was Doppled. Pre Procedural Pulses: bilateral radial was 3+. Oxygen started at 2liters/min via nasal canula. right groin was prepped with chloroprep then draped in the usual sterile fashion. right radial was prepped with chloroprep then draped in the usual sterile fashion. Physician notified. Baseline sample Acquired. HR: 70 BPM. Physician arrived. Physician scrubbed in. Immediate Pre-Procedure Time Out. Correct Patient: Yes; Correct Procedure: Yes; Correct Site: Yes; Correct Patient Position: Yes; Correct Supplies: Yes; Dried Flammable Prep: Yes; Blood Products Available: N/A;. Lidocaine 1% infiltrated to the right radial. Arterial access obtained. A 5 tunisian TIG catheter in over wire. exchange wire out. Catheter removed over the exchange wire. repostitioning with exchage wire. A 5 tunisian JR4 catheter in over wire. exchange wire out. Catheter out. A TR Band was successful obtaining hemostatsis at the Right Radial artery insertion site. Lidocaine 1% infiltrated to the right groin. An attempt to gain access to the right femoral artery was unsuccessful. Manual pressure was held as needed to stop the bleeding. Arterial access obtained with micropuncture set. exchang wire in. supply: 6Fr 45 cm flexor sheath. A 5 tunisian JR4 catheter in over wire. wire out. Multiple views taken of right coronary artery. Catheter removed over the exchange wire. A 5 tunisian JL4 catheter in over wire. Catheter removed over the exchange wire. A 6 tunisian JL5 catheter in over wire. exchange wire out. Multiple views taken of left coronary artery. Catheter removed over the exchange wire. Physician review of cine films. 6 tunisian XB 4 guide catheter was inserted over the wire. Catheter removed over the exchange wire. long 6Fr sheath flexer exchanged for short sheath over wire. Sheath(s) sutured into position with 2-0 silk and sterile 4x4's and Op-site applied over the site. No oozing or signs and symptoms of hematoma noted. Post Procedure: Pulses reassessed and unchanged. PERRLA. Strong, equal hand box toe flanger stitchdowns bilaterally. No VTE prophylaxis required. Medication's Wasted: Lidocaine 1% = 3 mL. Medication's Wasted: Nitro = 49.8 mL. Medication's Wasted: Other = versed 1 mg. Medication's Wasted: Other = fenanyl 50 mcg. Medication's Wasted: Heparin = 1500 units. Total IV fluids: 72 mL. Post-op diagnosis: AERIAL GUNNER of mid RCA, Moderate OM 1 stensosis, Mod LAD stenosis. Complications: none. Estimated blood loss: 5mL-10mL. Responsiveness - Normal response to verbal stimuli; alert and oriented, PERRLA. Airway - Unaffected, no intervention required; spontaneous ventilation. Circulation: W/N/L, pulses unchanged. Nausea/Vomiting: No. Procedure completed. Patient transferred by bed to ICU. Vital chart was stopped. Access Site Site: Right Radial artery Sheath Size: 6 Fr Hemostasis Method: TR Band Hemostasis Success: Successful Site: Right Femoral artery Sheath Size: 6 Fr Hemostasis Success: Unsuccessful Procedure Medications Start: 7:42 AM Stop: 7:42 AM Medication: Benadryl Amount: 25 mg Route: I.V. Start: 7:42 AM Stop: 7:42 AM Medication: Solu-Medrol (methylprednisolone) Amount: 125 mg Route: I.V. Start: 7:42 AM Stop: 7:42 AM Medication: Versed 1 mg and Fentanyl 25 mcg Amount: 1 Route: I.V. Start: 7:50 AM Stop: 7:50 AM Medication: Nitrogylcerin Amount: 200 mcg Route: I.A. Start: 7:53 AM Stop: 7:53 AM Medication: Heparin Amount: 2500 units Route: I.V. Start: 8:22 AM Stop: 8:22 AM Medication: Fentanyl Amount: 25 mcg Route: I.V. I, the attending physician, have reviewed and verified all procedure medications. Yes, all medications given per verbal order History/Risk Factors Hypertension: Yes Dyslipidemia: Yes Peripheral Arterial Disease (PAD): Yes Myocardial Infarction (OR): Yes Obesity: Yes Tobacco Use: Never Prior Interventions PCI: Yes CABG: No Valve Surgery: No Report Signatures Finalized by Omer Hernandez MD on 01/10/2022 08:18 AM
--- NOTE | 2021-12-27 06:49 | SUR.PREOP ---
Patient is in a motorized wheelchair and has it with him this AM.
[2021-12-27 07:01] LABS: Basophils # 0.1 10^3/uL (0.0-0.1); Basophils % 1.2 %; Eosinophils # 0.3 10^3/uL (0.0-0.8); Hematocrit 37.6 % (42.0-52.0); Hemoglobin 11.4 g/dL (11.7-16.6); Lymphocytes # 0.8 10^3/uL (0.8-4.8); Lymphocytes % 20.2 %; Mean Corpuscular HGB Conc 30.3 g/dL (30.0-36.0); Mean Corpuscular Hemoglobin 31.3 pg (28.0-34.0); Mean Corpuscular Volume 103.3 fl (80-94); Mean Platelet Volume 11.9 fL (7.4-10.4); Monocytes # 0.5 10^3/uL (0.2-0.9); Monocytes % 11.1 %; Neutrophils # 2.55 10^3/uL (1.8-7.7); Neutrophils % 61.3 %; Nucleated Red Blood Cells % 0 %; Platelet Count 99 10^3/cmm (130-400); Red Blood Count 3.64 10^6/uL (4.1-5.3); Red Cell Distribution Width 14.7 % (12.1-15.1); White Blood Count 4.2 10^3/uL (4.0-10.0)
[2021-12-27 07:18] LABS: Anion Gap 13.3 (5-19); Blood Urea Nitrogen 22 mg/dL (8-23); Calcium 8.8 mg/dL (8.5-10.5); Carbon Dioxide 29 mmol/L (22-29); Chloride 99 mmol/L (98-107); Glucose 72 mg/dL (65-115); Osmolality Calculated 286 mOsm/kg (285-295); Potassium 4.3 mmol/L (3.5-5.1); Sodium 137 mmol/L (136-145)
--- NOTE | 2021-12-27 07:41 | P.HP_ITS ---
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 He has been having chest discomfort episodes and shortness of breath. He underwent stress test that was abnormal. Plan for left heart cath with possible percutaneous coronary intervention Medications/Allergies* Home Medications Medication Instructions Recorded Confirmed Type nitroglycerin 0.4 mg sublingual 0.4 mg sublingual Q5M PRN Chest 03/16/19 12/26/21 History tablet Pain albuterol sulfate 90 mcg/actuation 1 puff inhalation QID PRN 03/17/19 12/26/21 History aerosol inhaler Shortness Of Breath duloxetine 20 mg capsule,delayed 20 mg PO BEDTIME@03/17/19 12/26/21 History release gabapentin 100 mg capsule 100 mg PO BEDTIME@03/17/19 12/26/21 History insulin aspart U-100 100 unit/mL 5 unit SUBCUT TID@ ##0 03/17/19 12/26/21 History (3 mL) subcutaneous pen (Novolog Flexpen U-100 Insulin aspart) pantoprazole 40 mg tablet,delayed 40 mg PO DAILY@11/10/20 12/26/21 History release cholecalciferol (vitamin D3) 25 25 mcg PO DAILY@03/21/21 12/26/21 History mcg (1,000 unit) tablet (Vitamin D3) fluticasone propionate 50 2 spray intranasal DAILY@03/21/21 12/26/21 History mcg/actuation nasal spray,suspension (Flonase Allergy Relief) insulin glargine 100 unit/mL (3 30 unit SUBCUT BID@03/21/21 12/26/21 History mL) subcutaneous pen (Lantus Solostar U-100 Insulin) apixaban 2.5 mg tablet (Eliquis) 2.5 mg PO BID 09/11/21 12/26/21 History ipratropium bromide 0.02 % 2.5 ml inhalation BID PRN 09/11/21 12/26/21 History solution for inhalation Shortness Of Breath vitamin B comp no.3-folic acid 1 1 tab PO DAILY 09/11/21 12/26/21 History mg-vit C 60 mg-biotin 300 mcg tablet ([facility]) bumetanide 1 mg tablet 1 mg PO 1XD 12/26/21 12/26/21 History isosorbide mononitrate 60 mg 60 mg PO DAILY 12/26/21 12/26/21 History tablet,extended release 24 hr loperamide 2 mg capsule 2 mg PO DAILY PRN Diarrhea 12/26/21 12/26/21 History metoprolol tartrate 25 mg tablet 12.5 mg PO Q12H 12/26/21 12/26/21 History pollens extract 1 tab PO BEDTIME 12/26/21 12/26/21 History Allergies/Adverse Reactions Allergy/AdvReac Type Severity Reaction Status Date / Time Iodinated Contrast Media Allergy Mild ALGY-Hives Verified 12/27/21 06:59 lisinopril Allergy Unknown Verified 12/27/21 06:59 rosuvastatin [From Crestor] Allergy Unknown Verified 12/27/21 06:59 Current Medications: Generic Name Dose Route Start Last Admin Trade Name Freq PRN Reason Stop Dose Admin Sodium Chloride 1,000 mls @ 50 mls/hr 12/27/21 06:00 12/27/21 06:57 Sodium Chloride 0.9% IV 12/28/21 01:59 Not Given .Q20H ONE Pertinent History/Comorbid Conditions* Medical History (Updated 08/25/21 @ 12:24 by Jeyson Allen MD) Aortic stenosis B12 deficiency Chronic anemia Closed fracture of lumbar vertebral body (~11/2020) L5 COPD (chronic obstructive pulmonary disease) Coronary disease Degenerative lumbar spinal stenosis Dyslipidemia End stage renal disease on dialysis GERD (gastroesophageal reflux disease) Hypertension Insulin dependent diabetes mellitus Morbid obesity Neuroendocrine tumor Stage IV, low-grade, around the head of the pancreas/duodenum, with lymph node prominence, treated with sandostatin, follows with Dr Allen, not a surgical candidate Osteoarthritis Peripheral vascular disease including carotid disease Prostate cancer Renal mass bilateral, indeterminant Sleep apnea Systolic and diastolic CHF, chronic Venous stasis Shila-Hernandez syndrome diagnosed in Surgical History (Updated 03/26/21 @ 10:31 by Jr Denis MD) H/O prostatectomy History of coronary artery stent placement History of orchiectomy S/P hemodialysis catheter insertion (03/25/21) Family History (Updated 03/21/21 @ 19:48 by Rosa Johnson MD) Diabetes Hyperlipidemia Chronic kidney disease (CKD) Hypertension Denies family history of Cancer Social History Smoking and tobacco status: never smoked Alcohol intake: never Caregiver/support person: Yes (daughter) Housing: Longterm Pertinent Exam Findings alert, oriented x 3, clear to auscultation bilaterally and regular rate & rhythm Conscious Sedation Assessment PATIENT ASSESSED PRIOR TO SEDATION, WITH NO CHANGE NOTED: Yes AIRWAY EVAL/ANESTHESIA PLAN: normal airway, ASA IV, Local Anesthesia, Risks, benefits & alternatives of sedation and/or procedure discussed and Patient agrees to continue as planned ADDITIONAL INFORMATION: Moderate sedation Recommendations Surgery/Procedure today (Left heart cath with possible percutaneous coronary intervention) Coding Level of Care Code Acute 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
[2021-12-27 11:00] LABS: Partial Thromboplastin Time 33.1 SECONDS (23.9-36.7)
[2021-12-27 13:00] LABS: Partial Thromboplastin Time 34.6 SECONDS (23.9-36.7)
[2021-12-27] MEDS: fentaNYL 50 mcg/mL INJ 2mL IVP (13:19)
--- NOTE | 2021-12-27 13:30 | PC.NURSE ---
TR band removed at 1254. No complications. Sheath removed at 1315. No complications with removal.
--- NOTE | 2021-12-27 14:29 | PC.NURSE ---
Geena from [facility] called and reported that [facility] [employer] will arrive at 1999 to transport patient back to long-term.
--- NOTE | 2021-12-27 16:08 | PC.NURSE ---
Report called to [facility]. Will notify facility of any changes in patient condition before end of bed rest at 1999.
[2021-12-27 19:06] LABS: Glucose Point of Care 197 mg/dL (70-110)
--- NOTE | 2021-12-27 21:13 | PC.NURSE ---
Patient readied for discharge: discharge instructions explained, IV removed, and patient dressed in clothing from home. Patient in power wheel chair wheeled out to [facility] for transportation to [facility]. Patient verbalized no further questions. All vitals stable.
== END 2021-12-27 21:16 | disposition skilled nursing facility (03) ==
LOC: CCL 06:14 → ICU 11:36
PROVIDERS: PCP Internal Medicine; Visit Provider Internal Medicine
DX: I65.21 Occlusion and stenosis of right carotid artery (principal); R07.89 Other chest pain; R94.39 Abnormal result of other cardiovascular function study; C61 Malignant neoplasm of prostate; D64.9 Anemia, unspecified; I25.10 Atherosclerotic heart disease of native coronary artery without angina pectoris; I25.2 Old myocardial infarction; E66.01 Morbid (severe) obesity due to excess calories; Z68.39 Body mass index [BMI] 39.0-39.9, adult; I25.5 Ischemic cardiomyopathy; E16.4 Increased secretion of gastrin; Z79.4 Long term (current) use of insulin; J44.9 Chronic obstructive pulmonary disease, unspecified; E78.5 Hyperlipidemia, unspecified; K21.9 Gastro-esophageal reflux disease without esophagitis; E11.22 Type 2 diabetes mellitus with diabetic chronic kidney disease; I13.2 Hypertensive heart and chronic kidney disease with heart failure and with stage 5 chronic kidney disease, or end stage renal disease; I50.42 Chronic combined systolic (congestive) and diastolic (congestive) heart failure; N18.6 End stage renal disease
CPT/HCPCS: 36415; 36416; 80048; 82962; 85025; 85730; 93454; 96365; 99152; 99153; C1769; C1887; C1894; J1200; J1644; J2250; J2930; J3010; J3490; J7030; Q9967

== ENCOUNTER 2022-01-08 13:30 | Oncology outpatient (recurring) (ONCR) | payer OTHER, SELFPAY ==
[2021-12-11] MEDS: octreotide LAR depot 30 mg Kit IM (14:03)
[2021-12-11 14:11] VITALS: BP 144/85; PULSE 74; RESP 18; TEMP 36.6; O2SAT 98
[2022-01-08] MEDS: octreotide LAR depot 30 mg Kit IM (13:34)
== END 2022-01-09 23:59 | disposition home or self-care (01) ==
PROVIDERS: PCP Internal Medicine; Visit Provider Internal Medicine Medical Oncology
DX: C7A.8 Other malignant neuroendocrine tumors (principal); Z79.818 Long term (current) use of other agents affecting estrogen receptors and estrogen levels
CPT/HCPCS: 96372; 96401; J2353

== ENCOUNTER 2022-02-14 09:50 | Oncology outpatient (recurring) (ONCR) | payer OTHER, SELFPAY ==
[2022-02-14] MEDS: octreotide LAR depot 30 mg Kit IM (12:24)
== END 2022-03-12 23:59 | disposition home or self-care (01) ==
PROVIDERS: PCP Internal Medicine; Visit Provider Internal Medicine Medical Oncology
DX: C7A.8 Other malignant neuroendocrine tumors (principal); Z79.818 Long term (current) use of other agents affecting estrogen receptors and estrogen levels; I12.0 Hypertensive chronic kidney disease with stage 5 chronic kidney disease or end stage renal disease; N18.6 End stage renal disease; Z99.2 Dependence on renal dialysis; R10.9 Unspecified abdominal pain; R19.7 Diarrhea, unspecified; Z79.899 Other long term (current) drug therapy
CPT/HCPCS: 96372; 99214; J2353

== ENCOUNTER 2022-03-14 12:17 | Oncology outpatient (recurring) (ONCR) | payer OTHER, SELFPAY ==
[2022-03-14 12:55] VITALS: BP 128/78; PULSE 59; RESP 18; TEMP 36.6; O2SAT 97
[2022-03-14] MEDS: octreotide LAR depot 20 mg Kit 40 MG IM (13:06)
== END 2022-04-09 23:59 | disposition home or self-care (01) ==
PROVIDERS: PCP Internal Medicine; Visit Provider Internal Medicine Medical Oncology
DX: C7A.8 Other malignant neuroendocrine tumors (principal); Z79.818 Long term (current) use of other agents affecting estrogen receptors and estrogen levels; Z79.899 Other long term (current) drug therapy
CPT/HCPCS: 96372; J2353

== ENCOUNTER 2022-03-26 15:18 | Outpatient (CLI) | payer OTHER, SELFPAY ==
--- NOTE | 2022-03-26 16:00 | CT_ITS ---
WS: [id number] CT ABDOMEN AND PELVIS NONCONTRAST HISTORY: Restaging for pancreatic neuroendocrine tumor, history of prostate cancer. TECHNIQUE: Imaging performed through the abdomen and pelvis. Coronal and sagittal reformats are submi tted. All CT scans at [facility] use at least one of these dose optimization techniques: auto mated exposure control; mA and/or kV adjustment per patient size (includes targeted exams where dose is matched to clinical indication); or iterative reconstruction. DLP: 1109.24 mGy.cm COMPARISON: 01/15/2021 and 11/30/2020 Lower thorax: Dependent changes at the lung bases. Very small LEFT pleural effusion. Heart is mildly enlarged. No pericardial effusion. Liver: Unenhanced liver is negative. Gallbladder: Mild hydrops. There is increased density layering within the gallbladder which may be du e to stasis and some sludge. No adjacent pericholecystic fluid or wall thickening. Pancreas: Pancreatic tail and body with mild atrophy. Centered in the region of the pancreatic head i s a large solid mass with slightly lobulated borders. Mass measures 9.8 x 6.8 cm and extends over a l ength of 10.0 cm. Very similar measurements to the prior examination. There is slight mass effect upo n the adjacent gallbladder and loss of the normal fat plane of the IVC. A normal pancreatic head is n ot identified. There are additional calcifications near the pancreatic head and the solid mass. Spleen: Normal size with granulomata. Adrenal glands: Normal. No mass. Right kidney: Numerous cysts. Atrophy. Perinephric stranding. Left kidney: Numerous cysts with atrophy and perinephric stranding. Aorta: Atherosclerotic plaque. No aneurysm. New small amount of ascites throughout the peritoneal cavity. There is ascites adjacent to the liver and spleen and extending along the paracolic gutters. There is also new mesenteric edema and soft tis clifton anasarca which was not present on the prior study. GI tract: Nondistended stomach. No small bowel obstruction. High density material scattered throughou t the colon is probably medicinal. No obstruction of the colon. Abdominal wall: Small umbilical hernia contains fat only. Pelvis: Normal. Osseous structures: Increase in lumbar lordosis. L5 anterolisthesis by 5 mm. Remote healed rib fractu res RIGHT lower thorax. CT/CT abdomen pelvis wo con [id number] IMPRESSION: 1. Large solid mass centered in the region of the pancreatic head measures 9.8 x 6.8 and extends over a length of 10.0 cm. Consistent with the previously katerina cribed neuroendocrine tumor. 2. Mildly hydropic gallbladder with no adjacent inflammation. Layering sludge is suspected in the gallbladder lumen. 3. Bilateral renal atrophy and cysts. 4. New small amount of ascites with mesenteric edema and anasarca.
== END 2022-03-26 15:19 | disposition home or self-care (01) ==
PROVIDERS: PCP Internal Medicine; Visit Provider Internal Medicine Medical Oncology
DX: I25.10 Atherosclerotic heart disease of native coronary artery without angina pectoris (principal); I87.8 Other specified disorders of veins; E78.5 Hyperlipidemia, unspecified; G47.33 Obstructive sleep apnea (adult) (pediatric); E16.4 Increased secretion of gastrin; E11.9 Type 2 diabetes mellitus without complications; E66.01 Morbid (severe) obesity due to excess calories; I50.42 Chronic combined systolic (congestive) and diastolic (congestive) heart failure; R00.0 Tachycardia, unspecified; I48.0 Paroxysmal atrial fibrillation; Z68.41 Body mass index [BMI] 40.0-44.9, adult
CPT/HCPCS: 74176; 99214

== ENCOUNTER 2022-04-11 13:05 | Oncology outpatient (recurring) (ONCR) | payer OTHER, SELFPAY ==
[2022-04-11] MEDS: octreotide LAR depot 20 mg Kit 40 MG IM (13:36)
[2022-04-11 13:45] VITALS: BP 149/78; PULSE 84; RESP 18; TEMP 36.8; O2SAT 98
== END 2022-05-10 23:59 | disposition home or self-care (01) ==
LOC: ONCMED 13:05
PROVIDERS: PCP Internal Medicine; Visit Provider Internal Medicine Medical Oncology
DX: C7A.8 Other malignant neuroendocrine tumors (principal); Z79.818 Long term (current) use of other agents affecting estrogen receptors and estrogen levels; Z79.899 Other long term (current) drug therapy
CPT/HCPCS: J2353

== ENCOUNTER 2022-05-16 11:11 | Oncology outpatient (recurring) (ONCR) | payer OTHER, SELFPAY ==
[2022-05-16] MEDS: octreotide LAR depot 20 mg Kit 40 MG IM (14:17)
[2022-05-16 14:33] VITALS: BP 115/71; PULSE 76; RESP 18; TEMP 35.7; O2SAT 95
[2022-05-16 15:16] LABS: Ferritin 652 ng/mL (30-400); Iron 39 ug/dL (59-158); Percent Saturation 21.7 % (20-50); Total Iron Binding Capacity 179 mcg/dl; Unsaturated Iron Binding 140 ug/dL (112-347)
[2022-05-23 11:10] LABS: Serotonin Whole Blood 28 ng/mL (56-244)
[2022-05-26 17:10] LABS: Chromogranin A LC/MS/MS 3355 ng/mL (ADULTS: <311)
== END 2022-06-09 23:59 | disposition home or self-care (01) ==
PROVIDERS: PCP Internal Medicine; Visit Provider Internal Medicine Medical Oncology
DX: C7A.8 Other malignant neuroendocrine tumors (principal); Z99.2 Dependence on renal dialysis; Z79.818 Long term (current) use of other agents affecting estrogen receptors and estrogen levels; C7B.8 Other secondary neuroendocrine tumors; R19.7 Diarrhea, unspecified; I12.0 Hypertensive chronic kidney disease with stage 5 chronic kidney disease or end stage renal disease; N18.6 End stage renal disease; Z79.899 Other long term (current) drug therapy
CPT/HCPCS: 36415; 82728; 83540; 83550; 84260; 86316; 96402; 99214; J2353

== ENCOUNTER 2022-05-20 07:41 | Inpatient (IN) | payer OTHER, SELFPAY ==
[2022-05-20 07:43] VITALS: BP 101/64; PULSE 69; RESP 20; TEMP 36.6; O2SAT 92; BMI 38.7
--- NOTE | 2022-05-20 08:04 | XR_ITS ---
WS: [id number] EXAMINATION: XR hip LT 2-3V wo/w pel* [id number] REASON FOR EXAM: fall/pain COMPARISON: 02/17/2018 ORDER DATE: 05/20/2022 8:35 AM TECHNIQUE: Frontal internal/external rotation views of the left hip were obtained. X-RAY FINDINGS: There are no definite fractures or dislocations. The bony superimposition of the be difficult to enti rely exclude a subtle impacted femoral neck fracture Normal motion with internal/external rotation is present. There are degenerative changes with joint space narrowing. XR/XR hip LT 2-3V wo/w pel* [id number] IMPRESSION: 1. No definite fractures or dislocations of the left hip. If there is continue d symptoms recommend repeat study and/or CT imaging of the hip. 2. Normal motion with internal/external rotation.
--- NOTE | 2022-05-20 08:05 | W.ED.FALL ---
HPI - Fall General: Chief Complaint: Fall Stated Complaint: FALL Time Seen by Provider: 05/20/22 07:44 Source: patient Mode of arrival: ambulatory History of Present Illness: 82-year-old male presents to the emergency room after falling in the bathroom he was trying to transfer from a chair to the toilet. . He is complaining of hip pain. There is no loss consciousness. When I seen him patient initially denied any other injury besides his hip. However the nurses triage note states he did strike his head. He is otherwise awake and alert appears to be at his baseline. He has a history of end-stage renal disease and was at his usual scheduled dialysis. MD complaint: fall Onset (ago): minute(s) Fall from: standing Fall witnessed: yes, by bystander Place fall occurred: other (Dialysis transferring to the restroom) Loss of consciousness: None Prolonged down time: no Symptoms prior to fall: none Context: tripped/slipped Location of injury: other (Left hip) Associated symptoms-after fall: Denies abdominal pain, chest pain, confusion, difficulty walking, headache(s), hematuria, lightheadedness, neck pain, numbness, short of breath, vertigo or weakness Review of Systems Const: Denies: fever(s), chills, body aches, change in appetite, fatigue or malaise ENMT: Denies: throat pain, ear or mastoid pain, nasal discharge or nasal congestion Card: Denies: chest pain or lightheadedness Resp: Denies: dyspnea, productive cough or non-productive cough GI: Denies: abdominal pain : Denies: hematuria Musc: Denies: neck pain Skin/Breast: Denies: rash or pruritus Neuro: Denies: headache(s), difficulty walking, vertigo or confusion PFS ED PFSH: Medical History Aortic stenosis B12 deficiency Chronic anemia Closed fracture of lumbar vertebral body (~11/2020) L5 COPD (chronic obstructive pulmonary disease) Coronary disease Degenerative lumbar spinal stenosis Dyslipidemia End stage renal disease on dialysis GERD (gastroesophageal reflux disease) Hypertension Insulin dependent diabetes mellitus Morbid obesity Neuroendocrine tumor Stage IV, low-grade, around the head of the pancreas/duodenum, with lymph node prominence, treated with sandostatin, follows with Dr Allen, not a surgical candidate Osteoarthritis Peripheral vascular disease including carotid disease Prostate cancer Renal mass bilateral, indeterminant Sleep apnea Systolic and diastolic CHF, chronic Venous stasis Shila-Hernandez syndrome diagnosed in Surgical History H/O prostatectomy History of coronary artery stent placement History of orchiectomy S/P hemodialysis catheter insertion (03/25/21) Family History Other Chronic kidney disease (CKD) Diabetes Hyperlipidemia Hypertension Denies family history of Cancer Social History Smoking and tobacco status: never smoked Alcohol intake: never Caregiver/support person: Yes (daughter) Housing: Longterm Physical Exam Const: GENERAL APPEARANCE: cooperative and comfortable ORIENTATION/CONSCIOUSNESS: Yes awake, Yes oriented to person, Yes oriented to place and Yes oriented to time HENMT: COMMON NORMALS: normocephalic, atraumatic and hearing grossly normal bilaterally HEAD & SCALP: normocephalic and atraumatic Resp: COMMON NORMALS: normal respiratory effort, No retractions, No use of accessory muscles and clear to auscultation bilaterally AUSCULTATION: clear to auscultation bilaterally Cardio: COMMON NORMALS: regular rate, regular rhythm and No murmurs present (Cardio) RATE: regular rate RHYTHM: regular rhythm GI: COMMON NORMALS: Soft to palpation and No hepatosplenomegaly present AUSCULTATION: Yes normoactive bowel sounds PALPATION: Yes Soft to palpation, No Tenderness to palpation present (GI), No Guarding due to palpation present (GI) and Yes No hepatosplenomegaly present Extremity: OTHER: Pain left hip left leg externally rotated and mildly shortened Neuro: SENSORIUM/ORIENTATION: Yes oriented to person, Yes oriented to place and Yes oriented to time Skin: COMMON NORMALS: no rashes or lesions noted GENERAL SKIN EXAM: no rashes or lesions noted Course Vital Signs: Vital signs: Vital Signs Temperature 97.9 F 05/21/22 04:00 Pulse Rate 78 05/21/22 04:00 Respiratory Rate 17 05/21/22 04:00 Blood Pressure 91/58 05/21/22 04:00 Pulse Oximetry 94 05/21/22 04:00 Oxygen Delivery Me thod 05/20/22 17:28 MDM - Fall Medical Decision Making Due to body habitus his plain film is very difficult to read. Because of his degree of pain and his osteoporosis noted on body habitus his CT was done. He has a greater trochanter fracture there is some question there is some extension into the neck. Reviewed with radiology and with orthopedics. Consensus was that he would need an MRI to confirm if there is actually a fracture present. He has hyperkalemia as well and he is due for dialysis. Dr. Gerardo treated his hyperkalemia with his initial admission orders patient will be placed on observation for further testing and treatment of his hyperkalemia nephrology consulted for dialysis. Medical Records I reviewed the patient's medical records. Lab Data I reviewed the patient's lab results. 05/20/22 08:02 05/20/22 08:02 Radiology Impressions Hip/Pelvis X-Ray 05/20/22 08:04 IMPRESSION: 1. No definite fractures or dislocations of the left hip. If there is continued symptoms recommend repeat study and/or CT imaging of the hip. 2. Normal motion with internal/external rotation. Hip CT 05/20/22 09:16 IMPRESSION: 1. Slightly comminuted avulsion fracture involving the greater trochanter. This appears new since CT abdomen pelvis March 26, 2022. Femoral head and neck otherwise appear grossly intact. 2. Moderate to advanced degenerative arthritis LEFT hip. 3. Mild soft tissue edema about the greater trochanter. 4. Vascular calcification Notified Lisandro Lomas DO at 05/20/2022 10:32 AM. Chest X-Ray 05/20/22 10:27 IMPRESSION: 1. Cardiomegaly with pulmonary vascular congestion. 2. Volume loss LEFT lower lobe with bilateral lower lobe infiltrates. LEFT hemidiaphragm is elevated. 3. Probable small bilateral pleural effusions. 4. Advanced chronic emphysematous changes. Laboratory Results WBC 5.9 10^3/uL (4.0-10.0) 05/20/22 08:02 RBC 3.16 10^6/uL (4.1-5.3) L 05/20/22 08:02 Hgb 10.1 g/dL (11.7-16.6) L 05/20/22 08:02 Hct 33.3 % (42.0-52.0) L 05/20/22 08:02 MCV 105.4 fl (80-94) H 05/20/22 08:02 MCH 32.0 pg (28.0-34.0) 05/20/22 08:02 MCHC 30.3 g/dL (30.0-36.0) 05/20/22 08:02 RDW 14.3 % (12.1-15.1) 05/20/22 08:02 Plt Count 92 10^3/cmm (130-400) L 05/20/22 08:02 MPV 12.1 fL (7.4-10.4) H 05/20/22 08:02 Neut % (Auto) 72.9 % 05/20/22 08:02 Lymph % (Auto) 14.6 % 05/20/22 08:02 [place] % (Auto) 7.1 % 05/20/22 08:02 Eos % (Auto) 3.9 % 05/20/22 08:02 Baso % (Auto) 1.0 % 05/20/22 08:02 Neut # (Auto) 4.29 10^3/uL (1.8-7.7) 05/20/22 08:02 Lymph # (Auto) 0.9 10^3/uL (0.8-4.8) 05/20/22 08:02 [place] # (Auto) 0.4 10^3/uL (0.2-0.9) 05/20/22 08:02 Eos # (Auto) 0.2 10^3/uL (0.0-0.8) 05/20/22 08:02 Baso # (Auto) 0.1 10^3/uL (0.0-0.1) 05/20/22 08:02 Nucleated RBC % (auto) 0 % 05/20/22 08:02 Nucleated RBCs # 0.0 /100WBC 05/20/22 08:02 Sodium 132 mmol/L (136-145) L 05/20/22 08:02 Potassium 6.2 mmol/L (3.5-5.1) H 05/20/22 08:02 Chloride 97 mmol/L (98-107) L 05/20/22 08:02 Carbon Dioxide 22 mmol/L (22-29) 05/20/22 08:02 Anion Gap 19.2 (5-19) H 05/20/22 08:02 BUN 42 mg/dL (8-23) H 05/20/22 08:02 Creatinine 5.6 mg/dL (0.7-1.2) H* 05/20/22 08:02 GFR Calculation Not Reportable 05/20/22 08:02 Glucose 174 mg/dL (65-115) H 05/20/22 08:02 Calculated Osmolality 289 mOsm/kg (285-295) 05/20/22 08:02 Calcium 8.2 mg/dL (8.5-10.5) L 05/20/22 08:02 Total Bilirubin 0.6 mg/dL (0.15-1.2) 05/20/22 08:02 AST 11 U/L (0-40) 05/20/22 08:02 ALT < 5 U/L (0-41) 05/20/22 08:02 Alkaline Phosphatase 87 U/L (40-130) 05/20/22 08:02 Total Protein 7.0 g/dL (6.6-8.7) 05/20/22 08:02 Albumin 3.3 g/dL (3.5-5.2) L 05/20/22 08:02 Globulin 3.7 g/dL (1.3-4.6) 05/20/22 08:02 Hep Bs Antigen Non-reactive (Nonreactive) 05/20/22 08:02 Hep Bs Antibody 9.9 (11.5-1000) L 05/20/22 08:02 Hep B Core Total Ab Non-reactive (Nonreactive) 05/20/22 08:02 Hepatitis C Antibody Non-reactive (Nonreactive) 05/20/22 08:02 Discharge Plan Discharge Patient Disposition: Admitted As Inpatient Admit Provider: Rolly Dubose Clinical Impression: Hyperkalemia, Fracture of greater trochanter of left femur, ESRD (end stage renal disease), Other malignant neuroendocrine tumors, Anemia Condition: Stable Coding Level of Care 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
--- NOTE | 2022-05-20 08:26 | PC.PHAR ---
Addendum entered by Geno Hubbard 05/20/22 11:00: per aster garcia at [facility] and tyrel states the pt had all am meds today Original Note: pt is from [facility] [phone] fax mar and tar
[2022-05-20] MEDS: ondansetron 2 mg/ML SDV 2 mL 4 MG IVP (08:28)
[2022-05-20] MEDS: morphine 4 mg/mL SDV 1 mL IVP (08:28)
--- NOTE | 2022-05-20 09:16 | CT_ITS ---
WS: [id number] NONCONTRAST CT LEFT HIP TECHNIQUE: Noncontrast CT LEFT hip with coronal and sagittal reformatted images. CLINICAL INFORMATION: fall/occult fx COMPARISON: None. DLP: 804.39 mGy.cm LEFT pubic rami appear normal. All CT scans at [facility] use at least one of these dose optimization techniques: automated e xposure control; mA and/or kV adjustment per patient size (includes targeted exams where dose is matc hed to clinical indication); or iterative reconstruction. FINDINGS: Osteopenia. Moderate to advanced arthritis LEFT hip. Slightly comminuted avulsion fracture involving the greater trochanter appears new since CT abdomen pelvis March 26, 2022. Associated soft tissue edema. Femoral neck appears intact. Femoral head appears intact. Normal LEFT pubic rami. Vascular calcification. CT/CT hip LT wo con* [id number] IMPRESSION: 1. Slightly comminuted avulsion fracture involving the greater trochanter. Thi s appears new since CT abdomen pelvis March 26, 2022. Femoral head and neck otherwise appear grossly intact. 2. Moderate to advanced degenerative arthritis LEFT hip. 3. Mild soft tissue edema about the greater trochanter. 4. Vascular calcification Notified Lisandro Lomas DO at 05/20/2022 10:32 AM.
--- NOTE | 2022-05-20 10:27 | XR_ITS ---
WS: [id number] EXAMINATION: XR chest 1V portable [id number] REASON FOR EXAM: dyspnea/cough COMPARISON: 03/21/2021 ORDER DATE: 05/20/2022 10:31 AM TECHNIQUE: A single, portable frontal chest x-ray was obtained. FINDINGS: . Right-sided tunneled dialysis catheter in place. Heart: Cardiomegaly. Aortic calcification. Lungs: Advanced chronic emphysematous changes. Bibasilar infiltrates with volume loss LEFT lower lobe . Probable small pleural effusions. Mild perihilar peribronchial cuffing consistent with mild pulmona ry vascular congestion Bones: Normal visualized bony structures. XR/XR chest 1V portable [id number] IMPRESSION: 1. Cardiomegaly with pulmonary vascular congestion. 2. Volume loss LEFT lower lobe with bilateral lower lobe infiltrates. LEFT hem idiaphragm is elevated. 3. Probable small bilateral pleural effusions. 4. Advanced chronic emphysematous changes.
[2022-05-20 10:43] LABS: Basophils # 0.1 10^3/uL (0.0-0.1); Eosinophils # 0.2 10^3/uL (0.0-0.8); Eosinophils % 3.9 %; Hematocrit 33.3 % (42.0-52.0); Hemoglobin 10.1 g/dL (11.7-16.6); Lymphocytes # 0.9 10^3/uL (0.8-4.8); Lymphocytes % 14.6 %; Mean Corpuscular HGB Conc 30.3 g/dL (30.0-36.0); Mean Corpuscular Volume 105.4 fl (80-94); Mean Platelet Volume 12.1 fL (7.4-10.4); Monocytes # 0.4 10^3/uL (0.2-0.9); Monocytes % 7.1 %; Neutrophils # 4.29 10^3/uL (1.8-7.7); Neutrophils % 72.9 %; Nucleated Red Blood Cells % 0 %; Platelet Count 92 10^3/cmm (130-400); Red Blood Count 3.16 10^6/uL (4.1-5.3); Red Cell Distribution Width 14.3 % (12.1-15.1); White Blood Count 5.9 10^3/uL (4.0-10.0)
[2022-05-20 11:01] LABS: Alanine Aminotransferase < 5 U/L (0-41); Albumin Level 3.3 g/dL (3.5-5.2); Alkaline Phosphatase 87 U/L (40-130); Anion Gap 19.2 (5-19); Aspartate Amino Transferase 11 U/L (0-40); Blood Urea Nitrogen 42 mg/dL (8-23); Calcium 8.2 mg/dL (8.5-10.5); Carbon Dioxide 22 mmol/L (22-29); Chloride 97 mmol/L (98-107); Globulin 3.7 g/dL (1.3-4.6); Glucose 174 mg/dL (65-115); Osmolality Calculated 289 mOsm/kg (285-295); Potassium 6.2 mmol/L (3.5-5.1); Sodium 132 mmol/L (136-145); Total Bilirubin 0.6 mg/dL (0.15-1.2)
--- NOTE | 2022-05-20 11:08 | PM.HP ---
Providers/Chief Complaint Admitting Physician: Rolly Dubose MD Primary Care Provider: Umer Benavidez MD Chief Complaint: FALL History of Present Illness Marco Antonio Valadez is a 82 year old male resident of [facility] who presented to the hospital after a fall. He reports he has some left hip pain. Fall occurred around 730 this morning. He states he was trying to transfer from his wheelchair. He states he really cannot stand for any prolonged period of time secondary to his health problems. He has not ambulated significantly in quite a while. He reports he has been able to transfer himself. He denies any recent illnesses. No vomiting or diarrhea. Review of Systems General: Reports: 10 or more systems reviewed and unremarkable except in HPI and below Card: Reports: swelling of feet/ankles; Denies: chest pain Resp: Denies: dyspnea GI: Reports: hematochezia (Occasionally blood in stool from hemorrhoids); Denies: abdominal pain, nausea or vomiting Medications/Allergies Home Medications Medication Instructions Recorded Confirmed Last Taken Type albuterol sulfate 90 mcg/actuation 1 puff inhalation QID PRN 03/17/19 05/20/22 12/26/21 History aerosol inhaler Shortness Of Breath duloxetine 20 mg capsule,delayed 20 mg PO BEDTIME@03/17/19 05/20/22 05/19/22 History release gabapentin 100 mg capsule 100 mg PO BEDTIME@03/17/19 05/20/22 05/19/22 History insulin aspart U-100 100 unit/mL 5 unit SUBCUT TID@ ##0 03/17/19 05/20/22 12/26/21 History (3 mL) subcutaneous pen (Novolog FlexPen U-100 Insulin aspart) pantoprazole 40 mg tablet,delayed 40 mg PO DAILY@06 11/10/20 05/20/22 05/20/22 History release ondansetron 4 mg disintegrating 4 mg PO Q8H PRN nausea and 11/30/20 05/20/22 Unknown Rx tablet vomiting #10 tabs cholecalciferol (vitamin D3) 25 25 mcg PO DAILY@03/21/21 05/20/22 05/20/22 History mcg (1,000 unit) tablet (Vitamin D3) apixaban 2.5 mg tablet (Eliquis) 2.5 mg PO BID@08,20 09/11/21 05/20/22 05/20/22 History bumetanide 1 mg tablet 1 mg PO DAILY@12/26/21 05/20/22 05/20/22 History isosorbide mononitrate 60 mg 60 mg PO DAILY@12/26/21 05/20/22 05/20/22 History tablet,extended release 24 hr loperamide 2 mg capsule 4 mg PO TID PRN Diarrhea 12/26/21 05/20/22 Unknown History metoprolol tartrate 25 mg tablet 12.5 mg PO Q12H 12/26/21 05/20/22 05/20/22 History cholestyramine (with sugar) 4 gram See Rx Instructions PO DAILY 02/14/22 05/20/22 Unknown History oral powder tamsulosin 0.4 mg capsule 0.4 mg PO BEDTIME@05/16/22 05/20/22 05/19/[address] Flores's Gargle 30 ml PO BID PRN unknown 05/20/22 05/20/22 Unknown History Prostat Liquid 30 ml PO BEDTIME@05/20/22 05/20/22 05/19/22 History acetaminophen 300 mg-codeine 30 mg 1 - 2 tab PO Q6H PRN Pain 05/20/22 05/20/22 Unknown History tablet allopurinol 100 mg tablet 100 mg PO DAILY@05/20/22 05/20/22 05/20/22 History calcium acetate(phosphat bind) 667 2,001 mg PO TID@08,12,17 05/20/22 05/20/22 05/20/22 History mg capsule camphor-menthol 0.2 %-3.5 % 1 applic topical BID PRN unknown 05/20/22 05/20/22 Unknown History topical gel doxycycline hyclate 100 mg capsule 100 mg PO BID 05/20/22 05/20/22 05/20/22 History hydrocodone 5 mg-acetaminophen 325 1 tab PO Q6H PRN Pain 05/20/22 05/20/22 Unknown History mg tablet insulin degludec 100 unit/mL (3 60 unit SUBCUT DAILY@05/20/22 05/20/22 05/20/22 History mL) subcutaneous pen (Tresiba FlexTouch U-100 insulin) ipratropium bromide 21 mcg (0.03 2 spray intranasal TID@08,16,20 05/20/22 05/20/22 Unknown History %) nasal spray nitroglycerin 0.4 mg sublingual 0.4 mg sublingual Q5M PRN Chest 05/20/22 05/20/22 Unknown History tablet (Nitrostat) Pain vitamin B complex-vitamin C-folic 1 tab PO DAILY@08 05/20/22 05/20/22 05/20/22 History acid 0.8 mg tablet (Emily-Vinicio) Allergies Allergy/AdvReac Type Severity Reaction Status Date / Time Iodinated Contrast Media Allergy Mild ALGY-Hives Verified 05/20/22 07:51 lisinopril Allergy Unknown Verified 05/20/22 07:51 rosuvastatin [From Crestor] Allergy Unknown Verified 05/20/22 07:51 PFSH Acute PFSH: Medical History (Updated 05/20/22 @ 12:57 by Rolly Dubose MD) Aortic stenosis B12 deficiency Chronic anemia Closed fracture of lumbar vertebral body (~11/2020) L5 COPD (chronic obstructive pulmonary disease) Coronary disease Degenerative lumbar spinal stenosis Dyslipidemia End stage renal disease on dialysis GERD (gastroesophageal reflux disease) Hypertension Insulin dependent diabetes mellitus Morbid obesity Neuroendocrine tumor Stage IV, low-grade, around the head of the pancreas/duodenum, with lymph node prominence, treated with sandostatin, follows with Dr Allen, not a surgical candidate Osteoarthritis Peripheral vascular disease including carotid disease Prostate cancer Renal mass bilateral, indeterminant Sleep apnea Systolic and diastolic CHF, chronic Venous stasis Shila-Hernandez syndrome diagnosed in Surgical History H/O prostatectomy History of coronary artery stent placement History of orchiectomy S/P hemodialysis catheter insertion (03/25/21) Family History Other Chronic kidney disease (CKD) Diabetes Hyperlipidemia Hypertension Denies family history of Cancer Social History Smoking and tobacco status: never smoked Alcohol intake: never Caregiver/support person: Yes (daughter) Housing: [facility] Vitals/I&O/Wt Last Vital Signs Temp 97.9 F 05/20/22 07:43 Pulse 69 05/20/22 07:43 Resp 20 H 05/20/22 07:43 BP 101/64 05/20/22 07:43 Pulse Ox 92 05/20/22 07:43 O2 Del Method 05/20/22 07:43 Weight last 48 hrs Weight 122.47 kg Physical Exam Narrative: Exam is a white male, conversant, reporting some left hip pain. HEENT: Pupils equally round. Previous cataract surgery noted with lens implantation. Oropharynx is clear. Neck is supple no lymphadenopathy thyromegaly Cardiovascular regular rate and rhythm, heart sounds distant Lungs clear no wheezing or crackles Abdomen is soft obese nontender. Organomegaly is difficult to determine Extremities no cyanosis clubbing. Wraps are present on both legs secondary to edema which is at least 2+. AV fistula noted right upper extremity with thrill and bruit Skin no rash Neuro: Slight left facial droop was noted. I do not really detect any reduction of strength from side to side. Data 05/20/22 08:02 05/20/22 08:02 Other Labs: Liver function tests are normal Calcium 8.2 Albumin 3.3 Chest x-ray which I reviewed demonstrates cardiomegaly and vascular congestion, left hemidiaphragm elevation and small effusions, aortic calcification, dialysis catheter right chest Hip and pelvis x-ray is difficult to see any fractures CT of hip demonstrates comminuted avulsion fracture of the greater trochanter, with edema EKG which I reviewed demonstrates atrial fibrillation, normal axis, borderline intraventricular conduction delay, slow rate of 59, flipped T waves laterally. A&P Assessment and plan (1) Fall: Patient with mechanical fall. No evidence of syncope. (2) Fracture of greater trochanter of left femur: Patient with greater trochanter fracture. There is concern there may be a neck fractures are as well. Emergency department has been visiting with orthopedic surgery regarding this. Will obtain MRI of left hip. (3) Chronic anemia: Patient with history of chronic anemia. Appears stable (4) Other malignant neuroendocrine tumors: Patient has been receiving Sandostatin, through oncology (5) Thrombocytopenia: History of chronic thrombocytopenia, appears stable (6) ESRD (end stage renal disease): Patient on chronic hemodialysis. He still does make urine Check urinalysis as he has had some dysuria lately. Nephrology consultation (7) Hyperkalemia: Patient with significant hyperkalemia Kayexalate, insulin and glucose, calcium given in the emergency department Telemetry Low potassium diet Plan Multiple other medical problems as outlined in past medical history Allow natural per nursing facility records Hold anticoagulation currently, placed on heparin temporarily while evaluating whether more significant hip fracture is noted. Attestations Medical Necessity Statement*: Observation, at this point will require less than 2 midnight evaluation to determine if hip fracture is present and to give the patient needed dialysis. Diagnoses Fall W19.XXXA Fracture of greater trochanter of left femur S72.112A Chronic anemia D64.9 Other malignant neuroendocrine tumors C7A.8 Thrombocytopenia D69.6 ESRD (end stage renal disease) N18.6 Hyperkalemia E87.5 Time Spent (min) 49
--- NOTE | 2022-05-20 11:10 | ECG_ITS ---
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 Measurements Intervals [place] Rate: 59 P: 0 [place]: 0 QRS: -18 QRSD: 121 T: 125 QT: 410 QTc: 409 Interpretive Statements ATRIAL FIBRILLATION WITH SLOW VENTRICULAR RESPONSE MODERATE INTRAVENTRICULAR CONDUCTION DELAY [110+ ms QRS DURATION] NONSPECIFIC T-WAVE ABNORMALITY Compared to ECG 03/30/2021 17:07:03 T-wave abnormality now present Electronically Signed On 05-20-2022 23:40:34 CDT by Alla Aguirre M.D. [id number]
--- NOTE | 2022-05-20 11:50 | PM.CONSULT ---
Providers/Reason For Consult Consulting Physician/Specialty*: [facility]/Nephrology Reason for Consult*: ESRD Primary Care Provider: Umer Benavidez MD History of Present Illness History of Present Illness Patient is a 82-year-old male with past medical history of COPD, coronary artery disease, diabetes, hypertension, history of prostate cancer, end-stage renal disease on dialysis per Friday schedule sent to the emergency department from nursing facility due to fall while patient was trying to transfer from the wheelchair. In the ED vital signs stable, lab data significant for hemoglobin of 10.1, elevated potassium of 6.2, sodium was 132. CT of the hip showed comminuted avulsion fracture of the greater trochanter. Patient is admitted for further evaluation. Review of Systems Narrative: negative Medications/Allergies Home Medications Medication Instructions Recorded Confirmed Last Taken Type albuterol sulfate 90 mcg/actuation 1 puff inhalation QID PRN 03/17/19 05/20/22 12/26/21 History aerosol inhaler Shortness Of Breath duloxetine 20 mg capsule,delayed 20 mg PO BEDTIME@03/17/19 05/20/22 05/19/22 History release gabapentin 100 mg capsule 100 mg PO BEDTIME@03/17/19 05/20/22 05/19/22 History insulin aspart U-100 100 unit/mL 5 unit SUBCUT TID@ ##0 03/17/19 05/20/22 12/26/21 History (3 mL) subcutaneous pen (Novolog FlexPen U-100 Insulin aspart) pantoprazole 40 mg tablet,delayed 40 mg PO DAILY@11/10/20 05/20/22 05/20/22 History release ondansetron 4 mg disintegrating 4 mg PO Q8H PRN nausea and 11/30/20 05/20/22 Unknown Rx tablet vomiting #10 tabs cholecalciferol (vitamin D3) 25 25 mcg PO DAILY@03/21/21 05/20/22 05/20/22 History mcg (1,000 unit) tablet (Vitamin D3) apixaban 2.5 mg tablet (Eliquis) 2.5 mg PO BID@,09/11/21 05/20/22 05/20/22 History bumetanide 1 mg tablet 1 mg PO DAILY@12/26/21 05/20/22 05/20/22 History isosorbide mononitrate 60 mg 60 mg PO DAILY@08 12/26/21 05/20/22 05/20/22 History tablet,extended release 24 hr loperamide 2 mg capsule 4 mg PO TID PRN Diarrhea 12/26/21 05/20/22 Unknown History metoprolol tartrate 25 mg tablet 12.5 mg PO Q12H 12/26/21 05/20/22 05/20/22 History cholestyramine (with sugar) 4 gram See Rx Instructions PO DAILY 02/14/22 05/20/22 Unknown History oral powder tamsulosin 0.4 mg capsule 0.4 mg PO BEDTIME@05/16/22 05/20/22 05/19/[address] Flores'bill Gargle 30 ml PO BID PRN unknown 05/20/22 05/20/22 Unknown History Prostat Liquid 30 ml PO BEDTIME@05/20/22 05/20/22 05/19/22 History acetaminophen 300 mg-codeine 30 mg 1 - 2 tab PO Q6H PRN Pain 05/20/22 05/20/22 Unknown History tablet allopurinol 100 mg tablet 100 mg PO DAILY@05/20/22 05/20/22 05/20/22 History calcium acetate(phosphat bind) 667 2,001 mg PO TID@08,,05/20/22 05/20/22 05/20/22 History mg capsule camphor-menthol 0.2 %-3.5 % 1 applic topical BID PRN unknown 05/20/22 05/20/22 Unknown History topical gel doxycycline hyclate 100 mg capsule 100 mg PO BID 05/20/22 05/20/22 05/20/22 History hydrocodone 5 mg-acetaminophen 325 1 tab PO Q6H PRN Pain 05/20/22 05/20/22 Unknown History mg tablet insulin degludec 100 unit/mL (3 60 unit SUBCUT DAILY@05/20/22 05/20/22 05/20/22 History mL) subcutaneous pen (Tresiba FlexTouch U-100 insulin) ipratropium bromide 21 mcg (0.03 2 spray intranasal TID@08,16,05/20/22 05/20/22 Unknown History %) nasal spray nitroglycerin 0.4 mg sublingual 0.4 mg sublingual Q5M PRN Chest 05/20/22 05/20/22 Unknown History tablet (Nitrostat) Pain vitamin B complex-vitamin C-folic 1 tab PO DAILY@08 05/20/22 05/20/22 05/20/22 History acid 0.8 mg tablet (Emily-Vinicio) Allergies Allergy/AdvReac Type Severity Reaction Status Date / Time Iodinated Contrast Media Allergy Mild ALGY-Hives Verified 05/20/22 07:51 lisinopril Allergy Unknown Verified 05/20/22 07:51 rosuvastatin [From Crestor] Allergy Unknown Verified 05/20/22 07:51 PFSH Acute PFSH: Medical History (Updated 05/20/22 @ 12:57 by Rolly Dubose MD) Aortic stenosis B12 deficiency Chronic anemia Closed fracture of lumbar vertebral body (~11/2020) L5 COPD (chronic obstructive pulmonary disease) Coronary disease Degenerative lumbar spinal stenosis Dyslipidemia End stage renal disease on dialysis GERD (gastroesophageal reflux disease) Hypertension Insulin dependent diabetes mellitus Morbid obesity Neuroendocrine tumor Stage IV, low-grade, around the head of the pancreas/duodenum, with lymph node prominence, treated with sandostatin, follows with Dr Allen, not a surgical candidate Osteoarthritis Peripheral vascular disease including carotid disease Prostate cancer Renal mass bilateral, indeterminant Sleep apnea Systolic and diastolic CHF, chronic Venous stasis Shila-Hernandez syndrome diagnosed in Surgical History H/O prostatectomy History of coronary artery stent placement History of orchiectomy S/P hemodialysis catheter insertion (03/25/21) Family History Other Chronic kidney disease (CKD) Diabetes Hyperlipidemia Hypertension Denies family history of Cancer Social History Smoking and tobacco status: never smoked Alcohol intake: never Caregiver/support person: Yes (daughter) Housing: [facility] Vitals/I&O/Wt Last Vital Signs Temp 97.9 F 05/20/22 07:43 Pulse 69 05/20/22 07:43 Resp 20 H 05/20/22 07:43 BP 101/64 05/20/22 07:43 Pulse Ox 92 05/20/22 07:43 O2 Del Method 05/20/22 07:43 Weight last 48 hrs Weight 122.47 kg Physical Exam Narrative: Awake alert, no acute distress PEERLA S1-S2 regular rate and rhythm per report, Lungs clear per auscultation per report No pedal edema Data 05/20/22 08:02 05/20/22 08:02 A&P Assessment and plan (1) ESRD (end stage renal disease): Plan 1. End-stage renal disease: On hemodialysis per [facility] schedule as outpatient. Now presents with hyperkalemia. Plan for HD today-2K 2.5 calcium, 2 to 3 L ultrafiltration as tolerated. 2. Hyperkalemia: HD as above, low K diet 3. Status post fall and possible hip fracture: Management per primary team 4. Anemia: Secondary to renal insufficiency, ANGELIC as outpatient with dialysis 5. History of neuroendocrine tumors: Has been receiving Sandostatin Patient evaluated using audiovisual cart. Time spent 45 minutes. Consult Attestations Medical Necessity Statement: As per attending physician Coding Level of Care Code Acute Code for Chg Fwd Diagnoses ESRD (end stage renal disease) N18.6
[2022-05-20] MEDS: calcium gluconate 0.9% NaCL 1 GM/50 ML PREMIX IV (12:00)
[2022-05-20] MEDS: insulin regular-human 100 units/1 mL 10 UNIT IVP (12:02)
[2022-05-20] MEDS: sodium polystyrene sulfonate 15 gm/60 mL Btl 30 GM PO (12:02)
[2022-05-20 13:09] VITALS: BP 114/80; PULSE 72; RESP 19; O2SAT 91
--- NOTE | 2022-05-20 14:42 | PC.HD ---
Patient arrived to HD room approximately 1310. This RN was in a situation whereas her other patient was having issues, so unable to receive patient immediately and begin treatmnet. Patient waited for approximately 30-35 minutes until other patient was out of the dialysis room, at which time consent was signed, patient was assessed, dressing was changed, and treatment was begun.
[2022-05-20 15:18] LABS: Hepatitis C Virus Antibody Non-Reactive (Nonreactive)
[2022-05-20 15:25] LABS: Hepatitis B Core AB, Total Non-Reactive (Nonreactive); Hepatitis B Surface AB 9.9 (11.5-1000); Hepatitis B Surface Antigen Non-Reactive (Nonreactive)
[2022-05-20 17:00] VITALS: BP 150/81; BP 97/54; PULSE 73; RESP 16; TEMP 36.2; TEMP 36.3
[2022-05-20 17:48] LABS: Glucose Point of Care 48 mg/dL (70-110)
[2022-05-20 18:09] LABS: Glucose Point of Care 50 mg/dL (70-110)
[2022-05-20] MEDS: heparin 5,000 unit/mL INJ 1 mL 5000 UNIT SUBCUT (18:28)
[2022-05-20 18:36] LABS: Glucose Point of Care 59 mg/dL (70-110)
[2022-05-20 20:00] VITALS: BP 138/61; PULSE 64; RESP 17; TEMP 36.6; O2SAT 98
[2022-05-20 20:23] LABS: Glucose Point of Care 105 mg/dL (70-110)
[2022-05-20 20:23] LABS: Glucose Point of Care 86 mg/dL (70-110)
[2022-05-20] MEDS: gabapentin 100 mg Capsule PO (20:23)
[2022-05-20] MEDS: tamsulosin 0.4 mg Capsule PO (20:23)
[2022-05-20] MEDS: duloxetine 20 mg Capsule PO (20:23)
[2022-05-20] MEDS: HYDROcodone-acetaminophen 5-325 mg Tablet 1 TAB PO (20:25)
[2022-05-20 22:00] VITALS: PULSE 71
[2022-05-20 23:28] VITALS: BP 132/78; PULSE 68; RESP 16; TEMP 36.3; O2SAT 96
[2022-05-21] VITALS (10 sets, daily range): BP systolic 91–129; BP diastolic 54–78; PULSE 74–82; RESP 16–20; TEMP 36.3–36.7; O2SAT 90–98
--- NOTE | 2022-05-21 02:52 | PC.NURSE ---
blood glucose 74, will give juice and recheck in 30 minutes per protocol for alert patient.
[2022-05-21] MEDS: HYDROcodone-acetaminophen 5-325 mg Tablet 1 TAB PO (02:53)
[2022-05-21 02:55] LABS: Glucose Point of Care 74 mg/dL (70-110)
[2022-05-21] MEDS: morphine 4 mg/mL SDV 1 mL 1 MG IVP ×2 (03:54→06:49)
[2022-05-21 04:02] LABS: Glucose Point of Care 67 mg/dL (70-110)
[2022-05-21] MEDS: dextrose 5 % 500 ML 50 ML IV (04:05)
[2022-05-21 04:44] LABS: Glucose Point of Care 107 mg/dL (70-110)
[2022-05-21 05:04] LABS: Basophils % 0.8 %; Eosinophils # 0.2 10^3/uL (0.0-0.8); Eosinophils % 3.5 %; Hematocrit 31.3 % (42.0-52.0); Hemoglobin 9.6 g/dL (11.7-16.6); Lymphocytes # 0.6 10^3/uL (0.8-4.8); Lymphocytes % 11.2 %; Mean Corpuscular HGB Conc 30.7 g/dL (30.0-36.0); Mean Corpuscular Hemoglobin 32.4 pg (28.0-34.0); Mean Corpuscular Volume 105.7 fl (80-94); Mean Platelet Volume 12.3 fL (7.4-10.4); Monocytes # 0.4 10^3/uL (0.2-0.9); Monocytes % 8.3 %; Neutrophils # 3.94 10^3/uL (1.8-7.7); Nucleated Red Blood Cells % 0 %; Platelet Count 88 10^3/cmm (130-400); Red Blood Count 2.96 10^6/uL (4.1-5.3); Red Cell Distribution Width 14.6 % (12.1-15.1); White Blood Count 5.2 10^3/uL (4.0-10.0)
[2022-05-21 05:07] LABS: Glucose Point of Care 97 mg/dL (70-110)
[2022-05-21 05:36] LABS: Alanine Aminotransferase < 5 U/L (0-41); Albumin Level 3.1 g/dL (3.5-5.2); Alkaline Phosphatase 85 U/L (40-130); Anion Gap 20.5 (5-19); Aspartate Amino Transferase 10 U/L (0-40); Blood Urea Nitrogen 32 mg/dL (8-23); Calcium 7.9 mg/dL (8.5-10.5); Carbon Dioxide 22 mmol/L (22-29); Chloride 96 mmol/L (98-107); Globulin 3.6 g/dL (1.3-4.6); Glucose 110 mg/dL (65-115); Magnesium 1.7 mg/dL (1.7-2.3); Osmolality Calculated 284 mOsm/kg (285-295); Potassium 5.5 mmol/L (3.5-5.1); Sodium 133 mmol/L (136-145); Total Bilirubin 0.5 mg/dL (0.15-1.2); Total Protein 6.7 g/dL (6.6-8.7)
--- NOTE | 2022-05-21 06:17 | PM.PN ---
Subjective Subjective: Reports hip is still painful. No shortness of breath. Denies any chest pain. Had some hypoglycemia yesterday, improved this morning Medications: Reviewed: Yes Vitals/I&O/Wt Last Vital Signs Temp 97.9 F 05/21/22 04:00 Pulse 78 05/21/22 04:00 Resp 17 05/21/22 04:00 BP 91/58 05/21/22 04:00 Pulse Ox 94 05/21/22 04:00 O2 Del Method 05/20/22 17:28 05/20/22 05/20/22 05/21/22 14:59 22:59 06:59 Intake Total 100 / 100 530 / 630 35.5 / 665.5 Balance 100 / 100 530 / 630 35.5 / 665.5 Weight last 48 hrs Weight 122.47 kg Physical Exam Narrative: Exam is a white male, reports some pain left hip Neck is supple no lymphadenopathy thyromegaly Cardiovascular regular rate and rhythm, heart sounds distant Lungs clear no wheezing or crackles Abdomen is soft obese nontender. Extremities no cyanosis clubbing. Wraps are present on both legs secondary to edema which is at least 2+. AV fistula noted right upper extremity with thrill and bruit Data 05/21/22 04:30 05/21/22 04:30 A&P Assessment and plan (1) Fall: Patient with mechanical fall. No evidence of syncope. (2) Fracture of greater trochanter of left femur: Patient with greater trochanter fracture. There is concern there may be a neck fractures are as well. Emergency department has been visiting with orthopedic surgery regarding this. Stat MRI of left hip was not done yesterday as ordered. It is being done this morning. (3) Chronic anemia: Patient with history of chronic anemia. Appears stable (4) Other malignant neuroendocrine tumors: Patient has been receiving Sandostatin, through oncology (5) Thrombocytopenia: History of chronic thrombocytopenia, appears stable (6) ESRD (end stage renal disease): Patient on chronic hemodialysis. He still does make urine Nephrology consultation appreciated Urinalysis if patient is able. (7) Hyperkalemia: Patient with significant hyperkalemia Kayexalate, insulin and glucose, calcium given in the emergency department Telemetry Low potassium diet Potassium is elevated today, although not as high as yesterday. Nephrology will evaluate to determine if dialysis is needed today. Plan Hypoglycemia. Received glucose infusion for this. This should self-correct when he is allowed to eat, if no fracture is noted on MRI Multiple other medical problems as outlined in past medical history Allow natural per nursing facility records Hold anticoagulation currently, placed on heparin temporarily while evaluating whether more significant hip fracture is noted. If no fracture noted, potentially discharge back to the nursing facility. If fracture is noted orthopedic consult and surgery as soon as possible. Attestations Medical Necessity Statement*: To be determined depending upon MRI. Coding Level of Care Code Acute Code for Chg Fwd Diagnoses Fall W19.XXXA Fracture of greater trochanter of left femur S72.112A Chronic anemia D64.9 Other malignant neuroendocrine tumors C7A.8 Thrombocytopenia D69.6 ESRD (end stage renal disease) N18.6 Hyperkalemia E87.5
[2022-05-21 06:30] LABS: Glucose Point of Care 73 mg/dL (70-110)
--- NOTE | 2022-05-21 06:45 | MR_ITS ---
WS: [id number] MRI LEFT HIP without CONTRAST. COMPARISON: LEFT hip CT and radiographs 05/20/2022 Multiplanar, multisequence imaging is performed without contrast. Quality is examination is significantly degraded by patient's body habitus and motion artifact. Patie nt was unable to remain still for this examination. There is extensive soft tissue edema and anasarca. This is bilateral and diffuse. Slightly greater am ount of edema surrounding the LEFT hip is probably posttraumatic. Small bilateral hip joint effusions , LEFT slightly greater than the RIGHT. Edema slightly more prominent within the gluteal muscles post eriorly on the LEFT. There is a very small amount of edema in the LEFT greater trochanter. On the T1 sequence a nondisplaced fracture is noted. This corresponds to the fracture described on the recent C T. There is no edema or fracture line involving the femoral neck or head. This study is very limited as described above. No edema within the symphysis pubis. No marrow edema noted within the sacrum. Mixed signal lesion franky suring 17 mm in the proximal LEFT femur is probably an enchondroma. MR/MR hip LT wo con* [id number] IMPRESSION: 1. This study is significantly limited by patient's body habitus and motion. 2. Age-indeterminate fracture noted through the greater trochanter. This was d escribed on the CT of 05/20/2022. No edema or fracture noted through the femoral neck or head. Please take into consideration the limited quality of this exami nation. 3. There is extensive soft tissue edema but greatest surrounding the LEFT hip in the gluteal muscles. Increased soft tissue edema around the LEFT hip is like ly posttraumatic in etiology.
[2022-05-21 08:04] LABS: Glucose Point of Care 64 mg/dL (70-110)
[2022-05-21] MEDS: allopurinol 100 mg Tablet PO (09:43)
[2022-05-21] MEDS: dextrose 10% 1,000 ML 100 ML IV ×2 (09:43→21:35)
[2022-05-21] MEDS: isosorbide mononitrate ER 60 mg Tablet PO (09:43)
[2022-05-21] MEDS: oxyCODONE 5 mg IR Tab/Cap PO ×3 (09:43→21:35)
[2022-05-21] MEDS: bumetanide 1 mg Tablet PO (09:44)
[2022-05-21 10:12] LABS: Glucose Point of Care 47 mg/dL (70-110)
--- NOTE | 2022-05-21 10:26 | PC.CHAP ---
Pastoral Care Encounter/Spiritual Assessment Type of Contact [] Declined miller apprentice visit [] Patient/Family/Request visit [] Outpatient visit [] Follow-up visit [] Physician referral [] Code/Alert [] Routine visit [] Staff referral [] Actively dying [] Patient sleeping [] Family support [] [] Out of room [] Palliative care [] [x] Receiving care in room [] Pre-surgical visit [] Trauma [] Long length of stay [] ICU visit [] Other: Relational/Emotional Strength [] Patient feels connected with others/family/visitors/staff [] Distress [] Loneliness/isolation [] Abandonment Spirituality of Patient [] Person of Maribel [] Attends Restoration of their Maribel [] Believes in Prayer [] Reads Bible or Amish materials [] There are Spiritual issues to be addressed [employer] Planter Machine Operator Interventions [] Prayer [] Active listening [] Non-anxious presence [] Spiritual/emotional support [] Crisis/trauma care [] Spiritual counseling [] Bereavement support [] Provided bereavement packet [] Provided Bible/devotional materials [] Provided toy/stuffed animal, coloring book to patient or family member [] Provided Communion [] Anointing/[place] [] Salvation [] Completed spiritual assessment [] Other: Impact on Illness or Injury [] Angry [] Fearful [] Anxious [] Often cries [] Exhaustion [] Unable to work [] Unable to attend advent [] Unable to walk/stand [] Unable to read [] Unable to drive [] Unable to eat/drink [] Unable to sleep [] Unable to be with family [] Patient intubated [] Other: Summary Time spent with patient
--- NOTE | 2022-05-21 10:28 | P.PN_ITS ---
Subjective Medications: Reviewed: Yes Vitals/I&O/Wt Last Vital Signs Temp 97.9 F 05/21/22 08:00 Pulse 76 05/21/22 08:00 Resp 20 H 05/21/22 09:43 BP 92/54 05/21/22 08:00 Pulse Ox 90 05/21/22 09:43 O2 Del Method 05/21/22 08:00 05/20/22 05/21/22 05/21/22 22:59 06:59 14:59 Intake Total 530 / 630 85.5 / 715.5 Balance 530 / 630 85.5 / 715.5 Weight last 48 hrs Weight 122.47 kg Physical Exam Narrative: Awake alert, no acute distress PEERLA S1-S2 regular rate and rhythm per report, Lungs clear per auscultation per report No pedal edema Data 05/21/22 04:30 05/21/22 04:30 A&P Assessment and plan (1) ESRD (end stage renal disease): Plan 1. End-stage renal disease: On hemodialysis per [facility] schedule as outpatient. Presented with hyperkalemia. Status post hemodialysis yesterday, HD again today due to hyperkalemia 2. Hyperkalemia: HD as above, low K diet 3. Status post fall and possible hip fracture: Management per primary team 4. Anemia: Secondary to renal insufficiency, ANG[facility] as outpatient with dialysis 5. History of neuroendocrine tumors: Has been receiving Sandostatin Patient evaluated using audiovisual cart. Time spent 45 minutes. Attestations Medical Necessity Statement*: Medicine team Coding Level of Care Code Acute Code for [facility] Fwd Diagnoses ESRD (end stage renal disease) N18.6
[2022-05-21 11:08] LABS: Glucose Point of Care 106 mg/dL (70-110)
--- NOTE | 2022-05-21 12:29 | P.CONIM_ITS ---
Providers/Reason For Consult Consulting Physician/Specialty*: Myah Yanez MD Reason for Consult*: Left hip pain Requesting Physician: Lisandro Lomas MD Attending Physician: Rosa Johnson MD Primary Care Provider: Umer Benavidez MD History of Present Illness History of Present Illness Marco Antonio Valadez is a 82 year old male who was admitted on May 20 after a fall while at [facility]. Patient was brought to the emergency department. Apparently, he was transferring from his wheelchair when he fell. He states he really cannot stand for any prolonged period of time secondary to multiple health problems, and he has not ambulated significantly in quite a while. Until this event, he has been able to transfer himself. Upon presentation to the emergency department, there was question of greater tr ochanteric fracture with possible intertrochanteric extension. CT scan was obtained to further evaluate and this was not definitive. The patient was admitted for pain management and dialysis. Also, he was to have an inpatient MRI to further evaluate the need for surgical intervention. Medications/Allergies Home Medications Medication Instructions Recorded Confirmed Last Taken Type albuterol sulfate 90 mcg/actuation 1 puff inhalation QID PRN 03/17/19 05/20/22 12/26/21 History aerosol inhaler Shortness Of Breath duloxetine 20 mg capsule,delayed 20 mg PO BEDTIME@03/17/19 05/20/22 05/19/22 History release gabapentin 100 mg capsule 100 mg PO BEDTIME@03/17/19 05/20/22 05/19/22 History pantoprazole 40 mg tablet,delayed 40 mg PO DAILY@11/10/20 05/20/22 05/20/22 History release ondansetron 4 mg disintegrating 4 mg PO Q8H PRN nausea and 11/30/20 05/20/22 Unknown Rx tablet vomiting #10 tabs cholecalciferol (vitamin D3) 25 25 mcg PO DAILY@03/21/21 05/20/22 05/20/22 History mcg (1,000 unit) tablet (Vitamin D3) apixaban 2.5 mg tablet (Eliquis) 2.5 mg PO BID@08,09/11/21 05/20/22 05/20/22 History bumetanide 1 mg tablet 1 mg PO DAILY@12/26/21 05/20/2223 History isosorbide mononitrate 60 mg 60 mg PO DAILY@08 12/26/21 05/20/22 05/20/22 History tablet,extended release 24 hr loperamide 2 mg capsule 4 mg PO TID PRN Diarrhea 12/26/21 05/20/22 Unknown History metoprolol tartrate 25 mg tablet 12.5 mg PO Q12H 12/26/21 05/20/22 05/20/22 History cholestyramine (with sugar) 4 gram See Rx Instructions PO DAILY 02/14/22 05/20/22 Unknown History oral powder tamsulosin 0.4 mg capsule 0.4 mg PO BEDTIME@05/16/22 05/20/22 05/19/[address] Flores'bill Gargle 30 ml PO BID PRN unknown 05/20/22 05/20/22 Unknown History Prostat Liquid 30 ml PO BEDTIME@20 05/20/22 05/20/22 05/19/22 History acetaminophen 300 mg-codeine 30 mg 1 - 2 tab PO Q6H PRN Pain 05/20/22 05/20/22 Unknown History tablet allopurinol 100 mg tablet 100 mg PO DAILY@05/20/22 05/20/22 05/20/22 History calcium acetate(phosphat bind) 667 2,001 mg PO TID@08,12,17 05/20/22 05/20/22 05/20/22 History mg capsule camphor-menthol 0.2 %-3.5 % 1 applic topical BID PRN unknown 05/20/22 05/20/22 Unknown History topical gel ipratropium bromide 21 mcg (0.03 2 spray intranasal TID@08,16,20 05/20/22 05/20/22 Unknown History %) nasal spray nitroglycerin 0.4 mg sublingual 0.4 mg sublingual Q5M PRN Chest 05/20/22 05/20/22 Unknown History tablet (Nitrostat) Pain vitamin B complex-vitamin C-folic 1 tab PO DAILY@08 05/20/22 05/20/22 05/20/22 History acid 0.8 mg tablet (Emily-Vinicio) oxycodone 5 mg tablet 5 mg PO Q4H PRN Moderate Pain #20 05/22/22 Unknown Rx tabs Allergies Allergy/AdvReac Type Severity Reaction Status Date / Time Iodinated Contrast Media Allergy Mild ALGY-Hives Verified 05/20/22 07:51 lisinopril Allergy Unknown Verified 05/20/22 07:51 rosuvastatin [From Crestor] Allergy Unknown Verified 05/20/22 07:51 Current Medications Generic Name Dose Route Start Last Admin Trade Name Connorq PRN Reason Stop Dose Admin Allopurinol 100 mg 05/21/22 08:00 05/21/22 09:43 Allopurinol 100 Mg Tablet PO 100 mg DAILY@08 [facility] Administration Bumetanide 1 mg 05/21/22 08:00 05/21/22 09:44 Bumetanide 1 Mg Tablet PO 1 mg DAILY@08 [facility] Administration Duloxetine HCl 20 mg 05/20/22 20:00 05/20/22 20:23 Duloxetine 20 Mg Capsule PO 20 mg BEDTIME@20 [facility] Administration Gabapentin 100 mg 05/20/22 20:00 05/20/22 20:23 Gabapentin 100 Mg Capsule PO 100 mg BEDTIME@20 [facility] Administration Heparin Sodium (Porcine) 5,000 unit 05/20/22 18:00 05/21/22 05:56 Heparin 5,000 Unit/Ml Inj 1 Ml SUBCUT Not Given Q12H [facility] Dextrose 1,000 mls @ 100 mls/hr 05/21/22 08:45 05/21/22 09:43 D10w IV 100 mls/hr .Q10H [facility] Administration Isosorbide Mononitrate 60 mg 05/21/22 08:00 05/21/22 09:43 Isosorbide Mononitrate Er 60 Mg Tablet PO 60 mg DAILY@08 [facility] Administration Morphine Sulfate 1 mg 05/21/22 06:21 05/21/22 06:49 Morphine 4 Mg/Ml Sdv 1 Ml IVP 1 mg ONCE PRN Administration SEVERE PAIN Oxycodone HCl 5 mg 05/21/22 06:23 05/21/22 09:43 Oxycodone 5 Mg Ir Tab/Cap PO 5 mg Q4H PRN Administration MODERATE PAIN Pantoprazole Sodium 40 mg 05/21/22 06:00 05/21/22 05:[address] 40 Mg Tablet PO Not Given DAILY@06 [facility] Tamsulosin HCl 0.4 mg 05/20/22 20:00 04/10/23 20:23 Tamsulosin 0.4 Mg Capsule PO 0.4 mg BEDTIME@20 [facility] Administration PFSH Acute PFSH: Medical History Aortic stenosis B12 deficiency Chronic anemia Closed fracture of lumbar vertebral body (~11/2020) L5 COPD (chronic obstructive pulmonary disease) Coronary disease Degenerative lumbar spinal stenosis Dyslipidemia End stage renal disease on dialysis GERD (gastroesophageal reflux disease) Hypertension Insulin dependent diabetes mellitus Morbid obesity Neuroendocrine tumor Stage IV, low-grade, around the head of the pancreas/duodenum, with lymph node prominence, treated with sandostatin, follows with Dr Allen, not a surgical candidate Osteoarthritis Peripheral vascular disease including carotid disease Prostate cancer Renal mass bilateral, indeterminant Sleep apnea Systolic and diastolic CHF, chronic Venous stasis Shila-Hernandez syndrome diagnosed in Surgical History H/O prostatectomy History of coronary artery stent placement History of orchiectomy S/P hemodialysis catheter insertion (03/25/21) Family History Other Chronic kidney disease (CKD) Diabetes Hyperlipidemia Hypertension Denies family history of Cancer Social History Smoking and tobacco status: never smoked Alcohol intake: never Caregiver/support person: Yes (daughter) Housing: Shelter Vitals/I&O/Wt Last Vital Signs Temp 98.0 F 05/21/22 11:38 Pulse 77 05/21/22 11:38 Resp 18 05/21/22 11:38 BP 102/62 05/21/22 11:38 Pulse Ox 91 05/21/22 11:38 O2 Del Method 05/21/22 08:00 05/20/22 05/21/22 05/21/22 22:59 06:59 14:59 Intake Total 530 / 630 85.5 / 715.5 295.833 / 295.833 Balance 530 / 630 85.5 / 715.5 295.833 / 295.833 Weight last 48 hrs Weight 270 lb Physical Exam Narrative: The patient was seen in his room. He was resting comfortably in bed. He was not awaken during my visit as my intent was to inform him surgical intervention was not necessary. This will be conveyed to him. Const: COMMON NORMALS: no acute distress GENERAL APPEARANCE: cooperative and comfortable NUTRITIONAL APPEARANCE: obese HENMT: COMMON NORMALS: normocephalic and atraumatic HEAD & SCALP: normocephalic and atraumatic Resp: COMMON NORMALS: normal respiratory effort EFFORT & INSPECTION: Yes symmetric chest movement Extremity: NARRATIVE EXTREMITY EXAM: No obvious deformity to extremities. Patient has secondary lymphedema. Data 05/22/22 04:35 05/22/22 04:35 MRI: Radiologist's impression: MRI was obtained on May 21, and this was read by Dr. Rain Galdamez. Although t here was extensive soft tissue edema surrounding the gluteal muscles of the left hip, which was felt to be posttraumatic in etiology, there was no edema or fracture noted through the femoral head or neck. There was an age-indeterminate fracture through the left greater trochanter as visualized on CT. A&P Assessment and plan (1) Fracture of greater trochanter of left femur: After the review of the CT scan as well as the MRI and initial imaging studies, there does appear to be a minimally to nondisplaced fracture of the left greater trochanter. I cannot visualize extension into the femoral neck on any of the imaging studies. This would be considered a nonoperative fracture. The patient may be weightbearing as tolerated. Qualifiers: Encounter type: initial encounter Fracture type: closed Fracture alignment: nondisplaced Qualified Code(s): S72.115A - Nondisplaced fracture of greater trochanter of left femur, initial encounter for closed fracture Coding Level of Care Code Acute Code for [facility] Fwd Diagnoses Fracture of greater trochanter of left femur S72.115A Encounter type: initial encounter Fracture type: closed Fracture alignment: nondisplaced
[2022-05-21 13:19] LABS: Glucose Point of Care 107 mg/dL (70-110)
--- NOTE | 2022-05-21 15:02 | PC.HD ---
Immediately prior to initiation of treatment, gas welding equipment mechanic notified of an emergent ICU case which also needs to be run today. She requested this patient's treatment be shortened from 3 to 2 hours. UF goal was also reduced by 1/3, as patient has soft BPs and will not tolerate full UF removal over only 2 hours.
[2022-05-21] MEDS: heparin, porcine 1,000 unit/mL INJ 10 mL 10000 UNIT INTRACATH (16:21)
[2022-05-21] MEDS: heparin 5,000 unit/mL INJ 1 mL 5000 UNIT SUBCUT (17:24)
[2022-05-21 17:33] LABS: Glucose Point of Care 127 mg/dL (70-110)
[2022-05-21 20:46] LABS: Glucose Point of Care 182 mg/dL (70-110)
--- NOTE | 2022-05-21 21:05 | P.CONIM_ITS ---
Providers/Reason For Consult Consulting Physician/Specialty*: [facility]/Nephrology Reason for Consult*: -Hyponatremia Attending Physician: Rosa Johnson MD Primary Care Provider: Umer Benavidez MD History of Present Illness History of Present Illness Marco Antonio Valadez is a 82 year old male Medications/Allergies Home Medications Medication Instructions Recorded Confirmed Last Taken Type albuterol sulfate 90 mcg/actuation 1 puff inhalation QID PRN 03/17/19 05/20/22 12/26/21 History aerosol inhaler Shortness Of Breath duloxetine 20 mg capsule,delayed 20 mg PO BEDTIME@03/17/19 05/20/22 05/19/22 History release gabapentin 100 mg capsule 100 mg PO BEDTIME@03/17/19 05/20/22 05/19/22 Hist ory insulin aspart U-100 100 unit/mL 5 unit SUBCUT TID@ ##0 03/17/19 05/20/22 12/26/21 History (3 mL) subcutaneous pen (Novolog FlexPen U-100 Insulin aspart) pantoprazole 40 mg tablet,delayed 40 mg PO DAILY@11/10/20 05/20/22 05/20/22 History release ondansetron 4 mg disintegrating 4 mg PO Q8H PRN nausea and 11/30/20 05/20/22 Unknown Rx tablet vomiting #10 tabs cholecalciferol (vitamin D3) 25 25 mcg PO DAILY@03/21/21 05/20/22 05/20/22 History mcg (1,000 unit) tablet (Vitamin D3) apixaban 2.5 mg tablet (Eliquis) 2.5 mg PO BID@09/11/21 05/20/22 05/20/22 History bumetanide 1 mg tablet 1 mg PO DAILY@12/26/21 05/20/22 05/20/22 History isosorbide mononitrate 60 mg 60 mg PO DAILY@12/26/21 05/20/22 05/20/22 History tablet,extended release 24 hr loperamide 2 mg capsule 4 mg PO TID PRN Diarrhea 12/26/21 05/20/22 Unknown History metoprolol tartrate 25 mg tablet 12.5 mg PO Q12H 12/26/21 05/20/22 05/20/22 History cholestyramine (with sugar) 4 gram See Rx Instructions PO DAILY 02/14/22 05/20/22 Unknown History oral powder tamsulosin 0.4 mg capsule 0.4 mg PO BEDTIME@05/16/22 05/20/22 05/19/[address] Flores'bill Gargle 30 ml PO BID PRN unknown 05/20/22 05/20/22 Unknown History Prostat Liquid 30 ml PO BEDTIME@05/20/22 05/20/22 05/19/22 History acetaminophen 300 mg-codeine 30 mg 1 - 2 tab PO Q6H PRN Pain 05/20/22 05/20/22 Unknown History tablet allopurinol 100 mg tablet 100 mg PO DAILY@05/20/22 05/20/22 05/20/22 History calcium acetate(phosphat bind) 667 2,001 mg PO TID@08,12,17 05/20/22 05/20/22 05/20/22 History mg capsule camphor-menthol 0.2 %-3.5 % 1 applic topical BID PRN unknown 05/20/22 05/20/22 Unknown History topical gel doxycycline hyclate 100 mg capsule 100 mg PO BID 05/20/22 05/20/22 05/20/22 History hydrocodone 5 mg-acetaminophen 325 1 tab PO Q6H PRN Pain 05/20/22 05/20/22 Unknown History mg tablet insulin degludec 100 unit/mL (3 60 unit SUBCUT DAILY@08 05/20/22 05/20/22 05/20/22 History mL) subcutaneous pen (Tresiba FlexTouch U-100 insulin) ipratropium bromide 21 mcg (0.03 2 spray intranasal TID@08,16,20 05/20/22 05/20/22 Unknown History %) nasal spray nitroglycerin 0.4 mg sublingual 0.4 mg sublingual Q5M PRN Chest 05/20/22 05/20/22 Unknown History tablet (Nitrostat) Pain vitamin B complex-vitamin C-folic 1 tab PO DAILY@08 05/20/22 05/20/22 05/20/22 History acid 0.8 mg tablet (Emily-Vinicio) Allergies Allergy/AdvReac Type Severity Reaction Status Date / Time Iodinated Contrast Media Allergy Mild ALGY-Hives Verified 05/20/22 07:51 lisinopril Allergy Unknown Verified 05/20/22 07:51 rosuvastatin [From Crestor] Allergy Unknown Verified 05/20/22 07:51 Current Medications Generic Name Dose Route Start Last Admin Trade Name Checo PRN Reason Stop Dose Admin Allopurinol 100 mg 05/21/22 08:00 05/21/22 09:43 Allopurinol 100 Mg Tablet PO 100 mg DAILY@08 [facility] Administration Bumetanide 1 mg 05/21/22 08:00 05/21/22 09:44 Bumetanide 1 Mg Tablet PO 1 mg DAILY@08 [facility] Administration Duloxetine HCl 20 mg 05/20/22 20:00 05/20/22 20:23 Duloxetine 20 Mg Capsule PO 20 mg BEDTIME@20 [facility] Administration Gabapentin 100 mg 05/20/22 20:00 05/20/22 20:23 Gabapentin 100 Mg Capsule PO 100 mg BEDTIME@20 [facility] Administration Heparin Sodium (Porcine) 5,000 unit 05/20/22 18:00 05/21/22 17:24 Heparin 5,000 Unit/Ml Inj 1 Ml SUBCUT 5,000 unit Q12H [facility] Administration Dextrose 1,000 mls @ 100 mls/hr 05/21/22 08:45 05/21/22 09:43 D10w IV 100 mls/hr .Q10H [facility] Administration Isosorbide Mononitrate 60 mg 05/21/22 08:00 05/21/22 09:43 Isosorbide Mononitrate Er 60 Mg Tablet PO 60 mg DAILY@08 [facility] Administration Morphine Sulfate 1 mg 05/21/22 06:21 05/21/22 06:49 Morphine 4 Mg/Ml Sdv 1 Ml IVP 1 mg ONCE PRN Administration SEVERE PAIN Oxycodone HCl 5 mg 05/21/22 06:23 05/21/22 14:09 Oxycodone 5 Mg Ir Tab/Cap PO 5 mg Q4H PRN Administration MODERATE PAIN Pantoprazole Sodium 40 mg 05/21/22 06:00 05/21/22 05:[address] 40 Mg Tablet PO Not Given DAILY@06 [facility] Tamsulosin HCl 0.4 mg 05/20/22 20:00 05/20/22 20:23 Tamsulosin 0.4 Mg Capsule PO 0.4 mg BEDTIME@20 [facility] Administration PFSH Acute PFSH: Medical History Aortic stenosis B12 deficiency Chronic anemia Closed fracture of lumbar vertebral body (~11/2020) L5 COPD (chronic obstructive pulmonary disease) Coronary disease Degenerative lumbar spinal stenosis Dyslipidemia End stage renal disease on dialysis GERD (gastroesophageal reflux disease) Hypertension Insulin dependent diabetes mellitus Morbid obesity Neuroendocrine tumor Stage IV, low-grade, around the head of the pancreas/duodenum, with lymph node prominence, treated with sandostatin, follows with Dr Allen, not a surgical candidate Osteoarthritis Peripheral vascular disease including carotid disease Prostate cancer Renal mass bilateral, indeterminant Sleep apnea Systolic and diastolic CHF, chronic Venous stasis Shila-Hernandez syndrome diagnosed in Surgical History H/O prostatectomy History of coronary artery stent placement History of orchiectomy S/P hemodialysis catheter insertion (03/25/21) Family History Other Chronic kidney disease (CKD) Diabetes Hyperlipidemia Hypertension Denies family history of Cancer Social History Smoking and tobacco status: never smoked Alcohol intake: never Caregiver/support person: Yes (daughter) Housing: Retirement Vitals/I&O/Wt Last Vital Signs Temp 98.0 F 05/21/22 19:27 Pulse 76 05/21/22 19:27 Resp 16 05/21/22 19:27 BP 128/68 05/21/22 19:27 Pulse Ox 98 05/21/22 19:27 O2 Del Method 05/21/22 19:27 05/21/22 05/21/22 05/21/22 06:59 14:59 22:59 Intake Total 85.5 / 1015.5 295.833 / 295.833 540 / 835.833 Output Total 2300 / 2300 Balance 85.5 / -2284.5 295.833 / 295.833 -1760 / -1464.167 Weight last 48 hrs Weight 129.5 kg Weight 122.47 kg Data 05/21/22 04:30 05/21/22 04:30 Coding Level of Care Code Acute Code for [facility]
[2022-05-21] MEDS: gabapentin 100 mg Capsule PO (21:35)
[2022-05-21] MEDS: tamsulosin 0.4 mg Capsule PO (21:35)
[2022-05-21] MEDS: duloxetine 20 mg Capsule PO (21:35)
[2022-05-22] VITALS (11 sets, daily range): BP systolic 91–164; BP diastolic 56–88; PULSE 64–91; RESP 16–18; TEMP 35.9–37.1; O2SAT 90–96
[2022-05-22] MEDS: oxyCODONE 5 mg IR Tab/Cap PO ×3 (01:51→17:34)
[2022-05-22] MEDS: acetaminophen 325 mg Tablet 650 MG PO ×2 (01:51→08:08)
[2022-05-22 05:05] LABS: Glucose Point of Care 135 mg/dL (70-110)
[2022-05-22 05:42] LABS: Basophils # 0.1 10^3/uL (0.0-0.1); Basophils % 1.2 %; Eosinophils # 0.3 10^3/uL (0.0-0.8); Eosinophils % 5.8 %; Hematocrit 32.5 % (42.0-52.0); Hemoglobin 9.9 g/dL (11.7-16.6); Lymphocytes # 0.6 10^3/uL (0.8-4.8); Lymphocytes % 11.8 %; Mean Corpuscular HGB Conc 30.5 g/dL (30.0-36.0); Mean Corpuscular Hemoglobin 32.9 pg (28.0-34.0); Mean Platelet Volume 12.1 fL (7.4-10.4); Monocytes # 0.5 10^3/uL (0.2-0.9); Monocytes % 8.9 %; Neutrophils # 3.75 10^3/uL (1.8-7.7); Neutrophils % 72.1 %; Nucleated Red Blood Cells % 0 %; Platelet Count 91 10^3/cmm (130-400); Red Blood Count 3.01 10^6/uL (4.1-5.3); Red Cell Distribution Width 14.5 % (12.1-15.1); White Blood Count 5.2 10^3/uL (4.0-10.0)
[2022-05-22 06:23] LABS: Blood Urea Nitrogen 27 mg/dL (8-23); Carbon Dioxide 26 mmol/L (22-29); Chloride 97 mmol/L (98-107); Magnesium 1.8 mg/dL (1.7-2.3); Osmolality Calculated 283 mOsm/kg (285-295); Phosphorus 5.8 mg/dL (2.5-4.5); Sodium 134 mmol/L (136-145)
[2022-05-22] MEDS: pantoprazole DR 40 mg Tablet PO (06:31)
[2022-05-22] MEDS: heparin 5,000 unit/mL INJ 1 mL 5000 UNIT SUBCUT (06:32)
[2022-05-22 06:36] LABS: Glucose 90 mg/dL (65-115)
[2022-05-22 06:46] LABS: Glucose Point of Care 89 mg/dL (70-110)
[2022-05-22] MEDS: bumetanide 1 mg Tablet PO (08:08)
[2022-05-22] MEDS: isosorbide mononitrate ER 60 mg Tablet PO (08:08)
[2022-05-22] MEDS: allopurinol 100 mg Tablet PO (08:08)
--- NOTE | 2022-05-22 09:13 | PC.CHAP ---
Pastoral Care Encounter/Spiritual Assessment Type of Contact [] Declined janitor visit [] Patient/Family/Request visit [] Outpatient visit [] Follow-up visit [] Physician referral [] Code/Alert [x] Routine visit [] Staff referral [] Actively dying [] Patient sleeping [] Family support [] [] Out of room [] Palliative care [] [] Receiving care in room [] Pre-surgical visit [] Trauma [] Long length of stay [] ICU visit [] Other: Relational/Emotional Strength [x] Patient feels connected with others/family/visitors/staff [] Distress [] Loneliness/isolation [] Abandonment Spirituality of Patient [x] Person of Maribel [] Attends Denominational of their Maribel [x] Believes in Prayer [] Reads Bible or Religion materials [] There are Spiritual issues to be addressed Property Claim Rep Interventions [x] Prayer [x] Active listening [x] Non-anxious presence [x] Spiritual/emotional support [] Crisis/trauma care [] Spiritual counseling [] Bereavement support [] Provided bereavement packet [] Provided Bible/devotional materials [] Provided toy/stuffed animal, coloring book to patient or family member [] Provided Communion [] Anointing/[place] [] Salvation [x] Completed spiritual assessment [] Other: Impact on Illness or Injury [] Angry [] Fearful [] Anxious [] Often cries [] Exhaustion [] Unable to work [] Unable to attend taoist [] Unable to walk/stand [] Unable to read [] Unable to drive [] Unable to eat/drink [] Unable to sleep [] Unable to be with family [] Patient intubated [] Other: Summary Pt lives in a nursing facility and has multiple health issues. He fell while going to the bathroom and broke his hip. He is hoping to be released from hospital soon. Time spent with patient 5m
[2022-05-22 09:37] LABS: Glucose Point of Care 71 mg/dL (70-110)
--- NOTE | 2022-05-22 10:05 | PC.HD ---
Patient arrived to HD suite with a BP in the 70s. After repositioning BP cuff x2, it was 91/56 pre-treatment. This RN obtained two doses of the ordered prn Albumin. Albumin was started immediately upon treatment initiation. Dialysate temperature was also reduced from 36.0C to 35.0C per sewing machine attachment tester's hypotension orders. Will continue to monitor, administer second albumin if necessary, and check with sewing machine attachment tester regarding administration of a fluid bolus if the patient continues with low blood pressures.
--- NOTE | 2022-05-22 10:06 | PM.DCS ---
Discharge Providers Date of Admission: 05/21/22 15:56 Date of Discharge: May 22, 2022 Attending Provider at Admission: Rolly Dubose MD Attending Provider at Discharge: Rolly Dubose MD Primary Care Provider: Umer Benavidez MD Diagnoses at Discharge Discharge Diagnosis (1) ESRD (end stage renal disease): Status: Acute Reason for Visit Reason for Visit: FALL Hospital Course Hospital Course Marco Antonio was brought in from the nursing facility after mechanical fall. He was found to have a greater trochanter fracture on the left, but there was concern more may be going on as this was not clearly visualized on plain x-ray or CT. He was also found to be hyperkalemic. He has known end-stage renal disease and was due for dialysis. An MRI was ordered of his hip, and dialysis performed on day of admission. The following day the MRI was able to be completed. This did not show any extension of the fracture into the hip from the greater trochanter. Orthopedics did not believe any surgery was warranted. His potassium was still high. He had had some hypoglycemia, likely related to his renal dysfunction in the face of long-acting insulin, recent n.p.o. status, insulin and glucose that were needed for hyperkalemia. He therefore received dialysis again on May 21, and treatment of hypoglycemia. The following day he was better, but potassium was high and he was due for his routine dialysis. This occurred, and he was able to be discharged back to his [facility] facility. Patient was given an opportunity to ask questions, and agreed with the plan. Currently he will be weightbearing as tolerated. He will follow-up with dialysis on Mondays and Wednesdays and Fridays. He will get a BMP tomorrow and if potassium is persistently elevated consideration of Lokelma on nondialysis days. He will not go home on any insulin. Blood sugar will be checked before every meal and at bedtime, call to his primary, and decisions then whether he should resume his insulin. Physical Exam Narrative: General exam no distress Neck is supple Cardiovascular regular rate and rhythm Lungs clear Abdomen soft obese nontender Extremities 2+ edema Right AV fistula with thrill and bruit Right dialysis catheter line noted chest Discharge Data Studies Completed and Pending Completed Studies During Hospitalization Category Date Time Status CT hip LT wo con* [id number] Stat Cat Scan 05/20/22 09:16 Completed XR chest 1V portable [id number] Stat Exams 05/20/22 10:27 Completed XR hip LT 2-3V wo/w pel* [id number] Stat Exams 05/20/22 08:04 Completed MR hip LT wo con* [id number] Stat MRI 05/21/22 06:45 Completed Pending at discharge Category Date Time Status Urinalysis Stat Lab 05/20/22 10:27 Uncollected Urinalysis and Microscopic Stat Lab 05/20/22 11:50 Uncollected Radiology Impressions Hip/Pelvis X-Ray 05/20/22 08:04 IMPRESSION: 1. No definite fractures or dislocations of the left hip. If there is continued symptoms recommend repeat study and/or CT imaging of the hip. 2. Normal motion with internal/external rotation. Hip CT 05/20/22 09:16 IMPRESSION: 1. Slightly comminuted avulsion fracture involving the greater trochanter. This appears new since CT abdomen pelvis March 26, 2022. Femoral head and neck otherwise appear grossly intact. 2. Moderate to advanced degenerative arthritis LEFT hip. 3. Mild soft tissue edema about the greater trochanter. 4. Vascular calcification Notified Lisandro Lomas DO at 05/20/2022 10:32 AM. Chest X-Ray 05/20/22 10:27 IMPRESSION: 1. Cardiomegaly with pulmonary vascular congestion. 2. Volume loss LEFT lower lobe with bilateral lower lobe infiltrates. LEFT hemidiaphragm is elevated. 3. Probable small bilateral pleural effusions. 4. Advanced chronic emphysematous changes. Hip MRI 05/21/22 06:45 IMPRESSION: 1. This study is significantly limited by patient's body habitus and motion. 2. Age-indeterminate fracture noted through the greater trochanter. This was described on the CT of 05/20/2022. No edema or fracture noted through the femoral neck or head. Please take into consideration the limited quality of this examination. 3. There is extensive soft tissue edema but greatest surrounding the LEFT hip in the gluteal muscles. Increased soft tissue edema around the LEFT hip is likely posttraumatic in etiology. Laboratory Results WBC 5.2 10^3/uL (4.0-10.0) 05/22/22 04:35 RBC 3.01 10^6/uL (4.1-5.3) L 05/22/22 04:35 Hgb 9.9 g/dL (11.7-16.6) L 05/22/22 04:35 Hct 32.5 % (42.0-52.0) L 05/22/22 04:35 MCV 108.0 fl (80-94) H 05/22/22 04:35 MCH 32.9 pg (28.0-34.0) 05/22/22 04:35 MCHC 30.5 g/dL (30.0-36.0) 05/22/22 04:35 RDW 14.5 % (12.1-15.1) 05/22/22 04:35 Plt Count 91 10^3/cmm (130-400) L 05/22/22 04:35 MPV 12.1 fL (7.4-10.4) H 05/22/22 04:35 Neut % (Auto) 72.1 % 05/22/22 04:35 Lymph % (Auto) 11.8 % 05/22/22 04:35 [place] % (Auto) 8.9 % 05/22/22 04:35 Eos % (Auto) 5.8 % 05/22/22 04:35 Baso % (Auto) 1.2 % 05/22/22 04:35 Neut # (Auto) 3.75 10^3/uL (1.8-7.7) 05/22/22 04:35 Lymph # (Auto) 0.6 10^3/uL (0.8-4.8) L 05/22/22 04:35 [place] # (Auto) 0.5 10^3/uL (0.2-0.9) 05/22/22 04:35 Eos # (Auto) 0.3 10^3/uL (0.0-0.8) 05/22/22 04:35 Baso # (Auto) 0.1 10^3/uL (0.0-0.1) 05/22/22 04:35 Nucleated RBC % (auto) 0 % 05/22/22 04:35 Nucleated RBCs # 0.0 /100WBC 05/22/22 04:35 Sodium 134 mmol/L (136-145) L 05/22/22 04:35 Potassium 6.0 mmol/L (3.5-5.1) H 05/22/22 04:35 Chloride 97 mmol/L (98-107) L 05/22/22 04:35 Carbon Dioxide 26 mmol/L (22-29) 05/22/22 04:35 Anion Gap 17.0 (5-19) 05/22/22 04:35 BUN 27 mg/dL (8-23) H 05/22/22 04:35 Creatinine 4.5 mg/dL (0.7-1.2) H 05/22/22 04:35 GFR Calculation Not Reportable 05/22/22 04:35 Glucose 90 mg/dL (65-115) 05/22/22 04:35 POC Glucose 71 mg/dL (70-110) 05/22/22 09:33 Calculated Osmolality 283 mOsm/kg (285-295) L 05/22/22 04:35 Calcium 8.0 mg/dL (8.5-10.5) L 05/22/22 04:35 Phosphorus 5.8 mg/dL (2.5-4.5) H 05/22/22 04:35 Magnesium 1.8 mg/dL (1.7-2.3) 05/22/22 04:35 Total Bilirubin 0.5 mg/dL (0.15-1.2) 05/21/22 04:30 AST 10 U/L (0-40) 05/21/22 04:30 ALT < 5 U/L (0-41) 05/21/22 04:30 Alkaline Phosphatase 85 U/L (40-130) 05/21/22 04:30 Total Protein 6.7 g/dL (6.6-8.7) 05/21/22 04:30 Albumin 3.1 g/dL (3.5-5.2) L 05/21/22 04:30 Globulin 3.6 g/dL (1.3-4.6) 05/21/22 04:30 Hep Bs Antigen Non-reactive (Nonreactive) 05/20/22 08:02 Hep Bs Antibody 9.9 (11.5-1000) L 05/20/22 08:02 Hep B Core Total Ab Non-reactive (Nonreactive) 05/20/22 08:02 Hepatitis C Antibody Non-reactive (Nonreactive) 05/20/22 08:02 Vitals Last Vital Signs Temp 98.7 F 05/22/22 08:00 Pulse 82 05/22/22 08:00 Resp 18 05/22/22 08:00 BP 112/66 05/22/22 08:00 Pulse Ox 93 05/22/22 08:00 O2 Del Method Room Air 05/22/22 08:00 Discharge Plan Discharge Patient Disposition: Xfer SNF Condition: Stable Prescriptions: New oxycodone 5 mg Tablet 5 mg PO Q4H PRN (Reason: Moderate Pain) Qty: 20 0RF Continued Eliquis 2.5 mg tablet 2.5 mg PO BID@08,20 Hold Instructions: Resume on 12/28/21. cholestyramine (with sugar) 4 gram powder See Rx Instructions PO DAILY Rx Instructions: 4 gram in liquid by mouth daily@08 tamsulosin 0.4 mg capsule 0.4 mg PO BEDTIME@20 pantoprazole 40 mg Tablet,Delayed Release (Dr/Ec) 40 mg PO DAILY@06 ondansetron 4 mg tablet,disintegrating 4 mg PO Q8H PRN (Reason: nausea and vomiting) Qty: 10 0RF gabapentin 100 mg Capsule 100 mg PO BEDTIME@20 duloxetine 20 mg Capsule,Delayed Release(Dr/Ec) 20 mg PO BEDTIME@20 albuterol sulfate 90 mcg/actuation Hfa Aerosol Inhaler 1 puff inhalation QID PRN (Reason: Shortness Of Breath) cholecalciferol (vitamin D3) [Vitamin D3] 25 mcg (1,000 unit) Tablet 25 mcg PO DAILY@08 metoprolol tartrate 25 mg tablet 12.5 mg PO Q12H Rx Instructions: @08:00,20:00 isosorbide mononitrate 60 mg Tablet Extended Release 24 Hr 60 mg PO DAILY@08 bumetanide 1 mg Tablet 1 mg PO DAILY@08 loperamide 2 mg Capsule 4 mg PO TID PRN (Reason: Diarrhea) Nitrostat 0.4 mg Tablet, Sublingual 0.4 mg SUBLINGUAL Q5M PRN (Reason: Chest Pain) Rx Instructions: do not exceed 3 doses per episode Emily-Vinicio 0.8 mg Tablet 1 tab PO DAILY@08 ipratropium bromide 21 mcg (0.03 %) [place],Non-Aerosol 2 spray INTRANASAL TID@08,16,20 Rx Instructions: administer into each nostril calcium acetate(phosphat bind) 667 mg capsule 2,001 mg PO TID@08,12,17 Prostat Liquid 30 ml PO BEDTIME@20 allopurinol 100 mg tablet 100 mg PO DAILY@08 Tylenol-Codeine #3 300-30 mg Tablet 1 - 2 tab PO Q6H PRN (Reason: Pain) Biofreeze 0.2-3.5 % Gel 1 applic TOPICAL BID PRN (Reason: unknown) Dr Flores'bill Gargle 30 ml PO BID PRN (Reason: unknown) Discontinued insulin aspart U-100 [Novolog FlexPen U-100 Insulin] 100 unit/mL (3 mL) Insulin Pen 5 unit SUBCUT TID@07,11,17 Qty: 0 hydrocodone-acetaminophen 5-325 mg tablet 1 tab PO Q6H PRN (Reason: Pain) Tresiba FlexTouch U-100 100 unit/mL (3 mL) insulin pen 60 unit SUBCUT DAILY@08 doxycycline hyclate 100 mg capsule 100 mg PO BID Rx Instructions: for 5 days (started 05/17/22) Discharge Orders: Discharge Order (Routine); Ordered 05/22/22 Ordered By: Rolly Dubose Referrals: [facility] [Outside] Umer Benavidez MD [Primary Care Provider] - 4-7 days Discharge Diet: Diabetic Patient Instructions: Opioid Safety Activity Restrictions/Additional Instructions: Please do blood sugars before every meal and at bedtime. Note that he had a problem with hypoglycemia at the hospital. Should his blood sugars be consistently above 150, please call your primary care provider to consider initiation of mild sliding scale insulin No change from hydrocodone to oxycodone in the interim secondary to greater trochanter fracture Weightbearing as tolerated but will obviously require assistance with all position changes. Low potassium diet BMP tomorrow. If potassium remains elevated, consider Lokelma on days when he is not having dialysis Patient's Health Concerns: Fall with greater trochanter fracture Hyperkalemia Hypoglycemia Assessment: See above Plan of Treatment: Weightbearing as tolerated 3 dialysis sessions were given at the hospital Check BMP as an outpatient and consider Lokelma if potassium remains elevated. Could be given only on days when he does not have dialysis. Insulin was discontinued secondary to hypoglycemia. Continue blood sugar checks before every meal and at bedtime, with reevaluation if need to restart insulin Low potassium diet Discharge Attestations Time Spent in Discharge Care*: greater than 30 min Status at Discharge: Cognitive status at discharge: cognitively intact, Behavioral status at discharge: cooperative, Quality Metrics Clinical Quality Measures [ No reported AMI, CVA or VTE this stay] Coding Level of Care Code 58829 Total time (in minutes) for Discharge: 38 Diagnoses ESRD (end stage renal disease) N18.6
[2022-05-22 10:51] LABS: Glucose Point of Care 74 mg/dL (70-110)
--- NOTE | 2022-05-22 12:02 | PM.PN ---
Subjective Subjective: DENIES ANY COMPLAINTS Medications: Reviewed: Yes Vitals/I&O/Wt Last Vital Signs Temp 96.6 F L 05/22/22 10:04 Pulse 88 05/22/22 10:04 Resp 16 05/22/22 10:04 BP 91/56 05/22/22 10:04 Pulse Ox 93 05/22/22 08:00 O2 Del Method Room Air 05/22/22 08:00 05/21/22 05/22/22 05/22/22 22:59 06:59 14:59 Intake Total 1780 / 2075.833 120 / 2195.833 960 / 960 Output Total 2300 / 2300 Balance -520 / -224.167 120 / -104.167 960 / 960 Weight last 48 hrs Weight 129.5 kg Physical Exam Narrative: Awake alert, no acute distress PEERLA S1-S2 regular rate and rhythm per report, Lungs clear per auscultation per report No pedal edema Data 05/22/22 04:35 05/22/22 04:35 A&P Assessment and plan (1) ESRD (end stage renal disease): Plan 1. End-stage renal disease: On hemodialysis per [facility] schedule as outpatient. Presented with hyperkalemia. Status post hemodialysis yesterday, HD again today due to hyperkalemia 2. Hyperkalemia: HD as above, low K diet 3. Status post fall and possible hip fracture: Management per primary team 4. Anemia: Secondary to renal insufficiency, [facility]EL[facility] as outpatient with dialysis 5. History of neuroendocrine tumors: Has been receiving Sandostatin Patient evaluated using audiovisual cart. Time spent 45 minutes. Attestations Medical Necessity Statement*: PER MEDICINE TEAM Coding Level of Care Code Acute Code for Chg Fwd Diagnoses ESRD (end stage renal disease) N18.6
[2022-05-22] MEDS: dextrose 10% 1,000 ML 100 ML IV (12:53)
[2022-05-22 16:08] LABS: SARS Covid-2 Antigen negative (Negative)
[2022-05-22 17:04] LABS: Glucose Point of Care 165 mg/dL (70-110)
== END 2022-05-22 18:15 | disposition skilled nursing facility (03) | DRG 535 ==
LOC: ER 09:35 → MEDSURG 18:05
PROVIDERS: Hospitalist; Admitting Provider Internal Medicine; Emergency Provider Family Medicine; PCP Internal Medicine; Visit Provider Internal Medicine
DX: S72.115A Nondisplaced fracture of greater trochanter of left femur, initial encounter for closed fracture (principal); N18.6 End stage renal disease; I13.2 Hypertensive heart and chronic kidney disease with heart failure and with stage 5 chronic kidney disease, or end stage renal disease; I50.42 Chronic combined systolic (congestive) and diastolic (congestive) heart failure; C7A.8 Other malignant neuroendocrine tumors; W05.0XXA Fall from non-moving wheelchair, initial encounter; E11.22 Type 2 diabetes mellitus with diabetic chronic kidney disease; Z99.2 Dependence on renal dialysis; E11.649 Type 2 diabetes mellitus with hypoglycemia without coma; E11.51 Type 2 diabetes mellitus with diabetic peripheral angiopathy without gangrene; E87.5 Hyperkalemia; D63.1 Anemia in chronic kidney disease; I35.0 Nonrheumatic aortic (valve) stenosis; J44.9 Chronic obstructive pulmonary disease, unspecified; I25.10 Atherosclerotic heart disease of native coronary artery without angina pectoris; M48.061 Spinal stenosis, lumbar region without neurogenic claudication; M51.36 Other intervertebral disc degeneration, lumbar region; E78.5 Hyperlipidemia, unspecified; K21.9 Gastro-esophageal reflux disease without esophagitis; E66.01 Morbid (severe) obesity due to excess calories; Z79.51 Long term (current) use of inhaled steroids; Z79.01 Long term (current) use of anticoagulants; Z66 Do not resuscitate; D69.6 Thrombocytopenia, unspecified; Z90.79 Acquired absence of other genital organ(s); Z85.46 Personal history of malignant neoplasm of prostate
CPT/HCPCS: 12345; 36415; 36416; 71045; 73502; 73700; 73721; 80048; 80053; 82962; 83735; 84100; 85025; 86705; 86706; 86803; 87340; 87426; 90935; 93005; 96365; 96372; 96375; 99285; G0378; J0610; J1610; J1644; J1815; J2270; J2405; J7060; Q3014

== ENCOUNTER 2022-06-13 11:03 | Oncology outpatient (recurring) (ONCR) | payer OTHER, SELFPAY ==
[2022-06-13] MEDS: octreotide LAR depot 20 mg Kit 40 MG IM (12:53)
[2022-06-13 13:02] VITALS: BP 107/65; PULSE 64; RESP 18; TEMP 36; O2SAT 95
== END 2022-07-10 23:59 | disposition home or self-care (01) ==
LOC: ONCMED 11:03
PROVIDERS: PCP Internal Medicine; Visit Provider Internal Medicine Medical Oncology
DX: C7A.8 Other malignant neuroendocrine tumors (principal)
CPT/HCPCS: 96372; J2353

== ENCOUNTER 2022-07-11 10:37 | Oncology outpatient (recurring) (ONCR) | payer OTHER, SELFPAY ==
[2022-07-11 10:57] VITALS: BP 103/62; PULSE 67; RESP 16; TEMP 36.1
[2022-07-11] MEDS: octreotide LAR depot 20 mg Kit 40 MG IM (11:10)
== END 2022-08-09 23:59 | disposition home or self-care (01) ==
PROVIDERS: PCP Internal Medicine; Visit Provider Internal Medicine Medical Oncology
DX: C7A.8 Other malignant neuroendocrine tumors (principal)
CPT/HCPCS: 96372; 96401; J2353

== ENCOUNTER 2022-08-20 11:39 | Oncology outpatient (recurring) (ONCR) | payer OTHER, SELFPAY ==
[2022-08-20 11:47] VITALS: BP 100/58; PULSE 77; RESP 16; TEMP 36.5; O2SAT 93
[2022-08-20 12:06] LABS: Basophils % 0.7 %; Eosinophils # 0.2 10^3/uL (0.0-0.8); Eosinophils % 4.2 %; Hematocrit 32.9 % (42.0-52.0); Hemoglobin 10.3 g/dL (11.7-16.6); Lymphocytes # 0.6 10^3/uL (0.8-4.8); Lymphocytes % 13.6 %; Mean Corpuscular HGB Conc 31.3 g/dL (30.0-36.0); Mean Corpuscular Hemoglobin 33.8 pg (28.0-34.0); Mean Corpuscular Volume 107.9 fl (80-94); Mean Platelet Volume 11.7 fL (7.4-10.4); Monocytes # 0.4 10^3/uL (0.2-0.9); Monocytes % 8.3 %; Neutrophils # 3.27 10^3/uL (1.8-7.7); Nucleated Red Blood Cells % 0 %; Platelet Count 96 10^3/cmm (130-400); Red Blood Count 3.05 10^6/uL (4.1-5.3); White Blood Count 4.5 10^3/uL (4.0-10.0)
[2022-08-20 12:15] LABS: Alanine Aminotransferase < 5 U/L (0-41); Albumin Level 3.2 g/dL (3.5-5.2); Alkaline Phosphatase 83 U/L (40-130); Anion Gap 16.8 (5-19); Aspartate Amino Transferase 6 U/L (0-40); Blood Urea Nitrogen 32 mg/dL (8-23); Calcium 8.1 mg/dL (8.5-10.5); Carbon Dioxide 27 mmol/L (22-29); Chloride 98 mmol/L (98-107); Globulin 3.7 g/dL (1.3-4.6); Glucose 102 mg/dL (65-115); Osmolality Calculated 289 mOsm/kg (285-295); Potassium 5.8 mmol/L (3.5-5.1); Sodium 136 mmol/L (136-145); Total Bilirubin 0.6 mg/dL (0.15-1.2); Total Protein 6.9 g/dL (6.6-8.7)
[2022-08-20 12:28] LABS: LAB Peripheral Smear Sent for Review
[2022-08-20] MEDS: octreotide LAR depot 20 mg Kit 40 MG IM (14:40)
[2022-08-20 15:00] VITALS: BP 117/71; PULSE 84; RESP 18; TEMP 35.8; O2SAT 96
--- NOTE | 2022-08-20 15:21 | PC.NURSE ---
Patient recieved 2 sandostatin 20mg injections one to right and one to left dorsogluteul areas
[2022-08-30 17:10] LABS: Serotonin Whole Blood 22 ng/mL (56-244)
[2022-11-13 15:39] LABS: Chromogranin A LC/MS/MS 4944
== END 2022-09-09 23:59 | disposition home or self-care (01) ==
PROVIDERS: PCP Internal Medicine; Visit Provider Internal Medicine Medical Oncology
DX: C7B.01 Secondary carcinoid tumors of distant lymph nodes; C7A.098 Malignant carcinoid tumors of other sites; N18.6 End stage renal disease; Z99.2 Dependence on renal dialysis; R19.7 Diarrhea, unspecified; Z79.818 Long term (current) use of other agents affecting estrogen receptors and estrogen levels; Z79.899 Other long term (current) drug therapy
CPT/HCPCS: 36415; 80053; 84260; 85025; 86316; 96372; 99214; J2353

== ENCOUNTER 2022-09-03 03:22 | Emergency (ER) | payer OTHER, SELFPAY ==
[2022-09-03 03:24] VITALS: BP 116/62; PULSE 85; RESP 18; TEMP 36.8; O2SAT 94; BMI 38.7
--- NOTE | 2022-09-03 03:30 | USR_ITS ---
PROCEDURE INFORMATION: Exam: US Duplex Right Lower Extremity Veins, Limited Exam date and time: 09/03/2022 3:46 AM Age: 82 years old Clinical indication: Pain; Leg, lower; Right; Additional info: Leg pain TECHNIQUE: Imaging protocol: Real-time duplex ultrasound of the right extremity with 2-D dempsey scale, color Doppler flow and spectral waveform analysis including responses to compression and other maneuvers (when performed) with image documentation. Limited exam was focused on the right lower extremity veins. COMPARISON: US renal BI* [id number] 03/22/2021 10:34 AM FINDINGS: Right deep veins: Unremarkable. The common femoral, femoral, proximal profunda femoral and popliteal veins are patent without thrombus. There is diffuse pulsatile venous flow present, which may be due to right heart increased pressure. Advise correlation. Normal compressibility and/or augmentation response. Right superficial veins: Unremarkable. Saphenofemoral junction is patent without thrombus. Soft tissues: Unremarkable. US/[place] [id number] IMPRESSION: 1. No evidence of deep vein thrombosis. 2. There is diffuse pulsatile venous flow present, which may be due to right heart increased pressure/CHF. Advise correlation.
[2022-09-03 03:46] VITALS: RESP 18; O2SAT 92
[2022-09-03] MEDS: morphine 4 mg/mL SDV 1 mL IVP ×2 (03:46→09:19)
[2022-09-03] MEDS: ondansetron 2 mg/ML SDV 2 mL 4 MG IVP (03:47)
[2022-09-03 03:56] LABS: Basophils % 0.1 %; Hematocrit 36.4 % (42.0-52.0); Hemoglobin 11.2 g/dL (11.7-16.6); Lymphocytes # 0.5 10^3/uL (0.8-4.8); Lymphocytes % 6.7 %; Mean Corpuscular HGB Conc 30.8 g/dL (30.0-36.0); Mean Corpuscular Hemoglobin 33.9 pg (28.0-34.0); Mean Corpuscular Volume 110.3 fl (80-94); Mean Platelet Volume 11.9 fL (7.4-10.4); Monocytes # 0.4 10^3/uL (0.2-0.9); Monocytes % 4.8 %; Neutrophils # 6.83 10^3/uL (1.8-7.7); Neutrophils % 88.1 %; Nucleated Red Blood Cells % 0 %; Platelet Count 88 10^3/cmm (130-400); Red Cell Distribution Width 15.5 % (12.1-15.1); White Blood Count 7.8 10^3/uL (4.0-10.0)
[2022-09-03 04:12] LABS: Alanine Aminotransferase 7 U/L (0-41); Albumin Level 3.3 g/dL (3.5-5.2); Alkaline Phosphatase 96 U/L (40-130); Blood Urea Nitrogen 24 mg/dL (8-23); Calcium 8.2 mg/dL (8.5-10.5); Carbon Dioxide 25 mmol/L (22-29); Chloride 95 mmol/L (98-107); Globulin 3.5 g/dL (1.3-4.6); Glucose 142 mg/dL (65-115); Osmolality Calculated 288 mOsm/kg (285-295); Sodium 136 mmol/L (136-145); Total Bilirubin 0.8 mg/dL (0.15-1.2); Total Protein 6.8 g/dL (6.6-8.7)
[2022-09-03 04:25] LABS: Anion Gap 20.9 (5-19); Aspartate Amino Transferase 16 U/L (0-40); Potassium 4.9 mmol/L (3.5-5.1)
--- NOTE | 2022-09-03 04:31 | W.ED.EXTPRO ---
HPI - Extremity Problem General: Chief complaint: Extremity Problem,Nontraumatic Stated complaint: LEG PAIN Time Seen by Provider: 09/03/22 03:25 Source: patient and EMS Mode of arrival: EMS Limitations: no limitations History of Present Illness: 82-year-old male who is here from longterm he has history of bilateral edema he has had increased leg pain tonight he had some redness to the leg as well. He denies any fever he did receive a pain pill at the longterm states he is continue to have pain rates his pain a 6 out of 10 currently worse with palpation and movement. Associated symptoms: Deny chest pain, fever(s) or rash Review of Systems Const: Denies: fever(s), chills, body aches or change in appetite ENMT: Denies: throat pain or dental pain Card: Denies: chest pain Resp: Denies: dyspnea GI: Denies: abdominal pain, nausea, vomiting or diarrhea : Denies: dysuria Musc: Reports: extremity pain and extremity swelling; Denies: neck pain or back pain Skin/Breast: Denies: rash Neuro: Denies: headache(s) PFSH ED PFSH: Medical History Aortic stenosis B12 deficiency Chronic anemia Closed fracture of lumbar vertebral body (~11/2020) L5 COPD (chronic obstructive pulmonary disease) Coronary disease Degenerative lumbar spinal stenosis Dyslipidemia End stage renal disease on dialysis GERD (gastroesophageal reflux disease) Hypertension Insulin dependent diabetes mellitus Morbid obesity Neuroendocrine tumor Stage IV, low-grade, around the head of the pancreas/duodenum, with lymph node prominence, treated with sandostatin, follows with Dr Allen, not a surgical candidate Osteoarthritis Peripheral vascular disease including carotid disease Prostate cancer Renal mass bilateral, indeterminant Sleep apnea Systolic and diastolic CHF, chronic Venous stasis Shila-Hernandez syndrome diagnosed in Surgical History H/O prostatectomy History of coronary artery stent placement History of orchiectomy S/P hemodialysis catheter insertion (03/25/21) Family History Other Chronic kidney disease (CKD) Diabetes Hyperlipidemia Hypertension Denies family history of Cancer Social History Smoking and tobacco status: never smoked Alcohol intake: never Substance/Drug Use: never Caregiver/support person: Yes (daughter) Housing: Correction Physical Exam Const: COMMON NORMALS: no acute distress, patient oriented x3 and healthy appearing HENMT: COMMON NORMALS: normocephalic and atraumatic HEAD & SCALP: normocephalic and atraumatic Eye: COMMON NORMALS: Equal, round and reactive pupils present PUPIL: Yes Equal, round and reactive pupils present Neck/C-Spine: COMMON NORMALS: full ROM and supple Chest: COMMONS NORMALS: normal inspection of the chest and normal palpation of entire chest wall Resp: COMMON NORMALS: normal respiratory effort, No retractions, No use of accessory muscles and clear to auscultation bilaterally AUSCULTATION: clear to auscultation bilaterally Cardio: COMMON NORMALS: regular rate, regular rhythm and No murmurs present (Cardio) RATE: regular rate RHYTHM: regular rhythm GI: COMMON NORMALS: Normal to inspection, nondistended, normoactive bowel sounds present, Soft to palpation, non-tender and no masses PALPATION: Yes Soft to palpation Extremity: COMMON NORMALS: full ROM NARRATIVE EXTREMITY EXAM: Tenderness to right leg he does have some erythema and swelling swelling to bilateral legs. Neuro: COMMON NORMALS: patient oriented x3, moves all extremities and no focal motor deficits Psych: COMMON NORMALS: mental status grossly normal, Normal thought process present and cooperative THOUGHT PROCESS: Normal thought process present Skin: COMMON NORMALS: no rashes or lesions noted and no wounds GENERAL SKIN EXAM: no rashes or lesions noted Course Vital Signs: Vital signs: Vital Signs Temperature 98.3 F 09/03/22 03:24 Pulse Rate 85 09/03/22 03:24 Respiratory Rate 18 09/03/22 03:46 Blood Pressure 116/62 09/03/22 03:24 Pulse Oximetry 92 09/03/22 03:46 Oxygen Delivery Me thod Nasal Cannula 09/03/22 03:24 Oxygen Flow Rate 2 09/03/22 03:24 MDM - Extremity (Nontraumatic) Medical Decision Making Patient presents with leg pain likely from his anemia he has a mild cellulitis as well blood work is normal ultrasound showed no DVT no signs of arterial occlusion we will start him on antibiotics he is stable for discharge. Medical Records I reviewed the patient's medical records. Lab Data 09/03/22 03:47 09/03/22 03:47 Laboratory Results WBC 7.8 10^3/uL (4.0-10.0) 09/03/22 03:47 RBC 3.30 10^6/uL (4.1-5.3) L 09/03/22 03:47 Hgb 11.2 g/dL (11.7-16.6) L 09/03/22 03:47 Hct 36.4 % (42.0-52.0) L 09/03/22 03:47 MCV 110.3 fl (80-94) H 09/03/22 03:47 MCH 33.9 pg (28.0-34.0) 09/03/22 03:47 MCHC 30.8 g/dL (30.0-36.0) 09/03/22 03:47 RDW 15.5 % (12.1-15.1) H 09/03/22 03:47 Plt Count 88 10^3/cmm (130-400) L 09/03/22 03:47 MPV 11.9 fL (7.4-10.4) H 09/03/22 03:47 Neut % (Auto) 88.1 % 09/03/22 03:47 Lymph % (Auto) 6.7 % 09/03/22 03:47 [place] % (Auto) 4.8 % 09/03/22 03:47 Eos % (Auto) 0.0 % 09/03/22 03:47 Baso % (Auto) 0.1 % 09/03/22 03:47 Neut # (Auto) 6.83 10^3/uL (1.8-7.7) 09/03/22 03:47 Lymph # (Auto) 0.5 10^3/uL (0.8-4.8) L 09/03/22 03:47 [place] # (Auto) 0.4 10^3/uL (0.2-0.9) 09/03/22 03:47 Eos # (Auto) 0.0 10^3/uL (0.0-0.8) 09/03/22 03:47 Baso # (Auto) 0.0 10^3/uL (0.0-0.1) 09/03/22 03:47 Nucleated RBC % (auto) 0 % 09/03/22 03:47 Nucleated RBCs # 0.0 /100WBC 09/03/22 03:47 Sodium 136 mmol/L (136-145) 09/03/22 03:47 Potassium 4.9 mmol/L (3.5-5.1) 09/03/22 03:47 Chloride 95 mmol/L (98-107) L 09/03/22 03:47 Carbon Dioxide 25 mmol/L (22-29) 09/03/22 03:47 Anion Gap 20.9 (5-19) H 09/03/22 03:47 BUN 24 mg/dL (8-23) H 09/03/22 03:47 Creatinine 4.2 mg/dL (0.7-1.2) H 09/03/22 03:47 GFR Calculation Not Reportable 09/03/22 03:47 Glucose 142 mg/dL (65-115) H 09/03/22 03:47 Calculated Osmolality 288 mOsm/kg (285-295) 09/03/22 03:47 Calcium 8.2 mg/dL (8.5-10.5) L 09/03/22 03:47 Total Bilirubin 0.8 mg/dL (0.15-1.2) 09/03/22 03:47 AST 16 U/L (0-40) 09/03/22 03:47 ALT 7 U/L (0-41) 09/03/22 03:47 Alkaline Phosphatase 96 U/L (40-130) 09/03/22 03:47 Total Protein 6.8 g/dL (6.6-8.7) 09/03/22 03:47 Albumin 3.3 g/dL (3.5-5.2) L 09/03/22 03:47 Globulin 3.5 g/dL (1.3-4.6) 09/03/22 03:47 Discharge Plan Discharge Patient Disposition: Home Clinical Impression: Leg pain, right, Cellulitis Condition: Stable Prescriptions: New cephalexin 500 mg capsule 500 mg PO TID 7 Days Qty: 21 0RF No Action Eliquis 2.5 mg tablet 2.5 mg PO BID@08,20 Hold Instructions: Resume on 12/28/21. cholestyramine (with sugar) 4 gram powder See Rx Instructions PO DAILY Rx Instructions: 4 gram in liquid by mouth daily@08 tamsulosin 0.4 mg capsule 0.4 mg PO BEDTIME@20 pantoprazole 40 mg Tablet,Delayed Release (Dr/Ec) 40 mg PO DAILY@06 ondansetron 4 mg tablet,disintegrating 4 mg PO Q8H PRN (Reason: nausea and vomiting) Qty: 10 0RF gabapentin 100 mg Capsule 100 mg PO BEDTIME@20 duloxetine 20 mg Capsule,Delayed Release(Dr/Ec) 20 mg PO BEDTIME@20 albuterol sulfate 90 mcg/actuation Hfa Aerosol Inhaler 1 puff inhalation QID PRN (Reason: Shortness Of Breath) cholecalciferol (vitamin D3) [Vitamin D3] 25 mcg (1,000 unit) Tablet 25 mcg PO DAILY@08 metoprolol tartrate 25 mg tablet 12.5 mg PO Q12H Rx Instructions: @08:00,20:00 isosorbide mononitrate 60 mg Tablet Extended Release 24 Hr 60 mg PO DAILY@08 bumetanide 1 mg Tablet 1 mg PO DAILY@08 loperamide 2 mg Capsule 4 mg PO TID PRN (Reason: Diarrhea) Nitrostat 0.4 mg Tablet, Sublingual 0.4 mg SUBLINGUAL Q5M PRN (Reason: Chest Pain) Rx Instructions: do not exceed 3 doses per episode Emily-Vinicio 0.8 mg Tablet 1 tab PO DAILY@08 ipratropium bromide 21 mcg (0.03 %) [place],Non-Aerosol 2 spray INTRANASAL TID@08,16,20 Rx Instructions: administer into each nostril calcium acetate(phosphat bind) 667 mg capsule 2,001 mg PO TID@08,12,17 Prostat Liquid 30 ml PO BEDTIME@20 allopurinol 100 mg tablet 100 mg PO DAILY@08 acetaminophen-codeine 300-30 mg Tablet 1 - 2 tab PO Q6H PRN (Reason: Pain) camphor-menthol 0.2-3.5 % Gel 1 applic TOPICAL BID PRN (Reason: unknown) Dr Flores'bill Gargle 30 ml PO BID PRN (Reason: unknown) oxycodone 5 mg Tablet 5 mg PO Q4H PRN (Reason: Moderate Pain) Qty: 20 0RF Compazine 10 mg tablet 10 mg PO Q4H PRN (Reason: Mild Nausea) Qty: 30 3RF lorazepam 1 mg tablet 0.5 - 1 mg PO Q6H PRN (Reason: Severe Nausea) Qty: 30 3RF Discharge Orders: Discharge ED (Routine); Ordered 09/03/22 Ordered By: Michel Lutz Referrals: Umer Benavidez MD [Primary Care Provider] - 1-3 days Discharge Diet: Advance as tolerated Discharge Activity: Resume usual activity Patient Instructions: Cellulitis (ED), Leg Pain (ED) Coding Level of Care Code ED Finishing Tunnel Operator for [facility]
[2022-09-03 04:55] VITALS: PULSE 88; RESP 18; O2SAT 92
[2022-09-03 06:39] VITALS: BP 121/72; PULSE 85; RESP 18; O2SAT 95
[2022-09-03 09:19] VITALS: RESP 18; O2SAT 98
== END 2022-09-03 09:20 | disposition home or self-care (01) ==
PROVIDERS: Emergency Provider Emergency Medicine; PCP Internal Medicine
DX: M79.604 Pain in right leg (principal); L03.116 Cellulitis of left lower limb; L03.115 Cellulitis of right lower limb; E11.22 Type 2 diabetes mellitus with diabetic chronic kidney disease; I13.2 Hypertensive heart and chronic kidney disease with heart failure and with stage 5 chronic kidney disease, or end stage renal disease; I50.9 Heart failure, unspecified; N18.6 End stage renal disease; Z99.2 Dependence on renal dialysis; I25.10 Atherosclerotic heart disease of native coronary artery without angina pectoris; E78.5 Hyperlipidemia, unspecified; Z85.46 Personal history of malignant neoplasm of prostate; J44.9 Chronic obstructive pulmonary disease, unspecified
CPT/HCPCS: 80053; 85025; 93971; 96374; 96375; 96376; 99284; J2270; J2405

== ENCOUNTER 2022-09-04 08:00 | Inpatient (IN) | payer OTHER, SELFPAY ==
[2022-09-04] VITALS (82 sets, daily range): BP systolic 69–133; BP diastolic 40–88; PULSE 84–126; RESP 0–20; TEMP 36.7–37.8; O2SAT 91–99
--- NOTE | 2022-09-04 08:18 | XR_ITS ---
WS: [id number] EXAMINATION: XR chest 1V portable [id number] REASON FOR EXAM: dyspnea/cough ORDER DATE: 09/04/2022 8:27 AM FINDINGS: There are perihilar and parenchymal granulomatous calcifications. There is a diffuse opacity in the l eft base with poor definition of the left hemidiaphragm which could be related to fluid, consolidatio n or positioning.. Cardiomegaly is demonstrated. There is an atherosclerotic aorta containing calcifi ed plaque. There are no pleural effusions. XR/XR chest 1V portable [id number] IMPRESSION: CARDIOMEGALY WITH GENERALLY OPACIFIED LEFT LUNG BASE NOTED
--- NOTE | 2022-09-04 08:18 | ECG_ITS ---
[facility] Test Date: 2022-09-04 Pat Name: Marco Antonio Valadez Department: Room: Gender: Male Process Coordinator: : 1940 Requested By: Lisandro Doe Order Number: [id number] Foreign MD: Alla Aguirre M.D. Measurements Intervals [place] Rate: 89 P: 0 OK: 0 QRS: -75 QRSD: 122 T: 16 QT: 351 QTc: 429 Interpretive Statements ATRIAL FIBRILLATION POSSIBLE RIGHT VENTRICULAR CONDUCTION DELAY [RSR (QR) IN V1/V2] LEFT ANTERIOR FASCICULAR BLOCK [QRS AXIS <= -45, QR IN I, RS IN II] Compared to ECG 05/20/2022 11:10:24 Left anterior fascicular block now present Intraventricular conduction delay no longer present T-wave abnormality no longer present Electronically Signed On 09-04-2022 20:26:32 CDT by Alla Aguirre M.D. [email or web address]
[2022-09-04 08:36] LABS: Basophils % 0.3 %; Hematocrit 34.9 % (42.0-52.0); Hemoglobin 10.9 g/dL (11.7-16.6); Lymphocytes # 0.5 10^3/uL (0.8-4.8); Lymphocytes % 6.6 %; Mean Corpuscular HGB Conc 31.2 g/dL (30.0-36.0); Mean Corpuscular Hemoglobin 34.2 pg (28.0-34.0); Mean Corpuscular Volume 109.4 fl (80-94); Mean Platelet Volume 12.3 fL (7.4-10.4); Monocytes # 0.6 10^3/uL (0.2-0.9); Monocytes % 7.4 %; Neutrophils # 6.38 10^3/uL (1.8-7.7); Neutrophils % 84.8 %; Nucleated Red Blood Cells % 0 %; Platelet Count 91 10^3/cmm (130-400); Red Blood Count 3.19 10^6/uL (4.1-5.3); Red Cell Distribution Width 15.3 % (12.1-15.1); White Blood Count 7.5 10^3/uL (4.0-10.0)
[2022-09-04 08:41] LABS: Alanine Aminotransferase 11 U/L (0-41); Alkaline Phosphatase 100 U/L (40-130); Anion Gap 20.2 (5-19); Aspartate Amino Transferase 24 U/L (0-40); Blood Urea Nitrogen 39 mg/dL (8-23); Calcium 8.6 mg/dL (8.5-10.5); Carbon Dioxide 25 mmol/L (22-29); Chloride 92 mmol/L (98-107); Globulin 3.8 g/dL (1.3-4.6); Glucose 124 mg/dL (65-115); Osmolality Calculated 285 mOsm/kg (285-295); Potassium 5.2 mmol/L (3.5-5.1); Sodium 132 mmol/L (136-145); Total Protein 6.8 g/dL (6.6-8.7)
[2022-09-04 08:48] LABS: Troponin(5th) Baseline 210 ng/L (0-15)
[2022-09-04] MEDS: sodium chloride 0.9% 1,000 ML 999 ML IV ×2 (08:48→11:47)
[2022-09-04 08:50] LABS: ABG PH Result 7.35 (7.35-7.45); Base Excess ABG 0.3 mmol/L (-2.0-2.0); HCO3 ABG 26.4 mmol/L (22-26); Oxygen Saturation ABG 96.6
[2022-09-04 08:51] LABS: Blood Gas LPM 4.5 %; Blood Gas Sample Site rb; Blood Gas Sample Type art; Oxygen Device nc; Potassium Level - ABG 5.1 mmol/L (3.5-5.0)
[2022-09-04 08:52] LABS: HGB O2 Sat 94.7 % (95-100); Ionized Calcium Level - ABG 1.1 mmol/L (1.1-1.4); Methemoglobin 0.9 % (0.4-1.5); Total Hemoglobin 11.7 g/dL (14-18)
[2022-09-04 09:02] LABS: Slide Review Slide Review Perform
[2022-09-04] MEDS: morphine 4 mg/mL SDV 1 mL IVP (09:25)
--- NOTE | 2022-09-04 10:03 | W.ED.AMS ---
HPI - Altered Mental Status General: Chief Complaint: Altered Mental Status Stated Complaint: AMS Time Seen by Provider: 09/04/22 08:03 Source: patient Mode of arrival: EMS History of Present Illness: 82-year-old male presents emergency room via EMS. He has end-stage renal disease he was on route to dialysis clinic and was diverted here he is altered mental status. He was seen yesterday for a cellulitis and treated as an outpatient. Initially when he arrives here when I went to see him he is completely unresponsive. His vital signs MD complaint: altered mental status Review of Systems General: Reports: ROS unobtainable due to medical condition PFS ED PFSH: Medical History Aortic stenosis B12 deficiency Chronic anemia Closed fracture of lumbar vertebral body (~11/2020) L5 COPD (chronic obstructive pulmonary disease) Coronary disease Degenerative lumbar spinal stenosis Dyslipidemia End stage renal disease on dialysis GERD (gastroesophageal reflux disease) Hypertension Insulin dependent diabetes mellitus Morbid obesity Neuroendocrine tumor Stage IV, low-grade, around the head of the pancreas/duodenum, with lymph node prominence, treated with sandostatin, follows with Dr Allen, not a surgical candidate Osteoarthritis Peripheral vascular disease including carotid disease Prostate cancer Renal mass bilateral, indeterminant Sleep apnea Systolic and diastolic CHF, chronic Venous stasis Shila-Hernandez syndrome diagnosed in Surgical History H/O prostatectomy History of coronary artery stent placement History of orchiectomy S/P hemodialysis catheter insertion (03/25/21) Family History Other Chronic kidney disease (CKD) Diabetes Hyperlipidemia Hypertension Denies family history of Cancer Social History Smoking and tobacco status: never smoked Alcohol intake: never Substance/Drug Use: never Caregiver/support person: Yes (daughter) Housing: [facility] Physical Exam Narrative: On 10 L oxygen by Oxymizer S1-S2 regular rate and rhythm per report Crackles per report no distress , + LE edema Const: EXAM LIMITATIONS: altered mental status GENERAL APPEARANCE: lethargic and Edematous NUTRITIONAL APPEARANCE: obese ORIENTATION/CONSCIOUSNESS: Yes lethargic HENMT: COMMON NORMALS: normocephalic HEAD & SCALP: normocephalic Resp: EFFORT & INSPECTION: Yes tachypneic AUSCULTATION: rales, wheezes and diminished lung sounds Cardio: COMMON NORMALS: regular rhythm RATE: tachycardic RHYTHM: regular rhythm GI: COMMON NORMALS: Soft to palpation PALPATION: Yes Soft to palpation, No Tenderness to palpation present (GI) and Yes Hepatomegaly present OTHER: Anasarca of the abdomen noted Extremity: GENERAL: Yes edema Neuro: SENSORIUM/ORIENTATION: Yes lethargic Course Vital Signs: Vital signs: Vital Signs Temperature 102.6 F H 09/07/22 10:15 Pulse Rate 98 09/07/22 10:21 Respiratory Rate 19 H 09/07/22 10:15 Blood Pressure 96/60 09/07/22 10:15 Pulse Oximetry 97 09/07/22 10:21 Oxygen Delivery Me thod Oxymask 09/07/22 10:21 Oxygen Flow Rate 12 09/07/22 10:21 MDM - Altered Mental Status Medical Decision Making Patient does have severe sepsis by criteria however he has evidence of some mild fluid overload and he is on dialysis. He has been started on Levophed the sepsis bolus was ordered however were only running at 75 mL an hour concerned about fluid overload at this point. Rate may be addressed did based on his response and clinical findings. Discussed with hospitalist orders written consult nephrology Medical Records I reviewed the patient's medical records. Lab Data I reviewed the patient's lab results. 09/07/22 02:40 09/07/22 02:40 Radiology Impressions Chest X-Ray 09/04/22 08:18 IMPRESSION: CARDIOMEGALY WITH GENERALLY OPACIFIED LEFT LUNG BASE NOTED Hip/Pelvis X-Ray 09/04/22 12:37 IMPRESSION: 1. No definite fractures or dislocations of the left hip. If there is continued symptoms recommend repeat study and/or CT imaging of the hip. 2. Normal motion with internal/external rotation. Abdomen/Pelvis CT 09/05/22 14:16 IMPRESSION: 1. Large solid pancreatic head mass as seen with prior exam. 2. Mildly hydropic gallbladder with suspected component of sludge. 3. Chronic renal changes bilateral cysts with mild atrophy and chronic perinephric stranding. 4. Mild ascites and anasarca. 5. Mild posterior urinary bladder wall thickening and correlate clinically for cystitis. COMMENTS: Consistent with the [place]'s Incidental Findings Committee white paper (J Am Yi Radiol 2018): Any incidental renal lesion less than 1 cm or classified as too small to characterize, or any incidental cystic renal lesion characterized as simple-appearing, is likely benign. No follow-up imaging is recommended for these lesions per consensus recommendations based on imaging criteria. Head CT 09/06/22 11:56 IMPRESSION: 1. No evidence of intracranial hemorrhage or mass effect. 2. Moderate small vessel changes. Moderate parenchymal volume loss. 3. 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 Chronic lacunar infarct RIGHT caudate unchanged. 4. Intracranial vascular calcification. 5. Moderate small vessel changes with moderate parenchymal volume loss. Advanced parenchymal volume loss involving the posterior fossa unchanged. Laboratory Results WBC 7.5 10^3/uL (4.0-10.0) 09/04/22 08:00 RBC 3.19 10^6/uL (4.1-5.3) L 09/04/22 08:00 Hgb 10.9 g/dL (11.7-16.6) L 09/04/22 08:00 Hct 34.9 % (42.0-52.0) L 09/04/22 08:00 MCV 109.4 fl (80-94) H 09/04/22 08:00 MCH 34.2 pg (28.0-34.0) H 09/04/22 08:00 MCHC 31.2 g/dL (30.0-36.0) 09/04/22 08:00 RDW 15.3 % (12.1-15.1) H 09/04/22 08:00 Plt Count 91 10^3/cmm (130-400) L 09/04/22 08:00 MPV 12.3 fL (7.4-10.4) H 09/04/22 08:00 Neut % (Auto) 84.8 % 09/04/22 08:00 Lymph % (Auto) 6.6 % 09/04/22 08:00 [place] % (Auto) 7.4 % 09/04/22 08:00 Eos % (Auto) 0.0 % 09/04/22 08:00 Baso % (Auto) 0.3 % 09/04/22 08:00 Neut # (Auto) 6.38 10^3/uL (1.8-7.7) 09/04/22 08:00 Lymph # (Auto) 0.5 10^3/uL (0.8-4.8) L 09/04/22 08:00 [place] # (Auto) 0.6 10^3/uL (0.2-0.9) 09/04/22 08:00 Eos # (Auto) 0.0 10^3/uL (0.0-0.8) 09/04/22 08:00 Baso # (Auto) 0.0 10^3/uL (0.0-0.1) 09/04/22 08:00 Nucleated RBC % (auto) 0 % 09/04/22 08:00 Nucleated RBCs # 0.0 /100WBC 09/04/22 08:00 Specimen Type art 09/04/22 08:34 Sample Site rb 09/04/22 08:34 ABG pH 7.35 (7.35-7.45) 09/04/22 08:34 ABG pCO2 48.0 mmHg (35-45) H 09/04/22 08:34 ABG pO2 97.0 mmHg (80.0-100.0) 09/04/22 08:34 ABG HCO3 26.4 mmol/L (22-26) H 09/04/22 08:34 ABG O2 Saturation 96.6 09/04/22 08:34 ABG Base Excess 0.3 mmol/L (-2.0-2.0) 09/04/22 08:34 Vijay Test na 09/04/22 08:34 A-a O2 Gradient Not Reportable 09/04/22 08:34 Hematocrit 36.0 % (42-52) L 09/04/22 08:34 Hgb O2 Saturation 94.7 % (95-100) L 09/04/22 08:34 Carboxyhemoglobin 1.0 %THgb (0.4-20.1) 09/04/22 08:34 Methemoglobin 0.9 % (0.4-1.5) 09/04/22 08:34 Total Hemoglobin 11.7 g/dL (14-18) L 09/04/22 08:34 Sodium 136.0 mmol/L (131-143) 09/04/22 08:34 Potassium 5.1 mmol/L (3.5-5.0) H 09/04/22 08:34 Glucose 130.0 mg/dL (70-115) H 09/04/22 08:34 Ionized Calcium 1.1 mmol/L (1.1-1.4) 09/04/22 08:34 O2 Delivery Device nc 09/04/22 08:34 O2 Liters/Min 4.5 % 09/04/22 08:34 Cleaning Technician ID eric 09/04/22 08:34 Sodium 132 mmol/L (136-145) L 09/04/22 08:00 Potassium 5.2 mmol/L (3.5-5.1) H 09/04/22 08:00 Chloride 92 mmol/L (98-107) L 09/04/22 08:00 Carbon Dioxide 25 mmol/L (22-29) 09/04/22 08:00 Anion Gap 20.2 (5-19) H 09/04/22 08:00 BUN 39 mg/dL (8-23) H 09/04/22 08:00 Creatinine 5.5 mg/dL (0.7-1.2) H 09/04/22 08:00 GFR Calculation Not Reportable 09/04/22 08:00 Glucose 124 mg/dL (65-115) H 09/04/22 08:00 Calculated Osmolality 285 mOsm/kg (285-295) 09/04/22 08:00 Lactic Acid 3.0 mmol/L (0.5-2.2) H 09/04/22 10:03 Calcium 8.6 mg/dL (8.5-10.5) 09/04/22 08:00 Total Bilirubin 1.0 mg/dL (0.15-1.2) 09/04/22 08:00 AST 24 U/L (0-40) 09/04/22 08:00 ALT 11 U/L (0-41) 09/04/22 08:00 Alkaline Phosphatase 100 U/L (40-130) 09/04/22 08:00 Troponin T Baseline 210 ng/L (0-15) H* 09/04/22 08:00 Troponin T 120 Minute 205.5 ng/L (0-15) H 09/04/22 10:03 Delta Troponin T -4.5 ABS# (0-10) L 09/04/22 10:03 Total Protein 6.8 g/dL (6.6-8.7) 09/04/22 08:00 Albumin 3.0 g/dL (3.5-5.2) L 09/04/22 08:00 Globulin 3.8 g/dL (1.3-4.6) 09/04/22 08:00 Hepatitis A IgM Ab Non-reactive (Nonreactive) 09/04/22 08:00 Hep Bs Antigen Non-reactive (Nonreactive) 09/04/22 08:00 Hep Bs Antibody 3.5 (11.5-1000) L 09/04/22 08:00 Hep B Core Total Ab Non-reactive (Nonreactive) 09/04/22 08:00 Hepatitis C Antibody Non-reactive (Nonreactive) 09/04/22 08:00 Discharge Plan Discharge Patient Disposition: Admitted As Inpatient Admit Provider: Rolly Dubose Clinical Impression: Cellulitis, Acute encephalopathy, Bilateral lower extremity edema, CHF (congestive heart failure), ESRD (end stage renal disease), Neuroendocrine tumor, Pneumonia, Sepsis Condition: Stable Coding Level of Care Code ED [employer] Technical Assistant for [employer]
--- NOTE | 2022-09-04 10:18 | ECG_ITS ---
[facility] Test Date: 2022-09-04 Pat Name: Marco Antonio Valadez Department: Room: Gender: Male Solvent Recoverer: : 1940 Requested By: Lisandro Doe Order Number: [id number] Foreign MD: Alla Aguirre M.D. Measurements Intervals [place] Rate: 91 P: 0 LA: 0 QRS: 106 QRSD: 123 T: -31 QT: 360 QTc: 444 Interpretive Statements ATRIAL FIBRILLATION WITH ABERRANT CONDUCTION OR VENTRICULAR PREMATURE COMPLEXES RIGHT AXIS DEVIATION [QRS AXIS > 100] MODERATE INTRAVENTRICULAR CONDUCTION DELAY [110+ ms QRS DURATION] ABNORMAL QRS-T ANGLE [QRS-T AXIS DIFFERENCE > 60] Compared to ECG 09/04/2022 08:43:15 Ventricular premature complex(es) now present Aberrant conduction of supraventricular beat(s) now present Right-axis deviation now present Intraventricular conduction delay now present Left anterior fascicular block no longer present Electronically Signed On 09-04-2022 20:34:39 CDT by Alla Aguirre M.D. [id number]
[2022-09-04 11:01] LABS: Troponin 5 2HR 205.5 ng/L (0-15); Troponin 5 2HR Delta -4.5 ABS# (0-10)
[2022-09-04] MEDS: piperacillin-tazobactam 3.375 GM in sodium chloride 0.9% (plus) 50 ML IV ×2 (11:47→23:38)
[2022-09-04 12:05] LABS: Reflex Lactate Order REFLEX LACTIC ORDERD
[2022-09-04] MEDS: vancomycin 1,000 MG in sodium chloride 0.9% 250 ML 250 MG IV ×2 (12:10→21:31)
--- NOTE | 2022-09-04 12:37 | XR_ITS ---
WS: [id number] EXAMINATION: XR hip LT 2-3V wo/w pel* [id number] REASON FOR EXAM: pain COMPARISON: 05/20/2022 ORDER DATE: 09/04/2022 12:45 PM TECHNIQUE: Frontal internal/external rotation views of the left hip were obtained. X-RAY FINDINGS: There are no definite fractures or dislocations. The bowel and soft tissue superimposition makes it d ifficult to entirely exclude a subtle impacted femoral neck fracture Normal motion with internal/external rotation is present. There are degenerative changes with joint space narrowing. Atherosclerotic femoral vascular calcification noted XR/XR hip LT 2-3V wo/w pel* [id number] IMPRESSION: 1. No definite fractures or dislocations of the left hip. If there is continued symptoms recommend repeat study and/or CT imaging of the hip. 2. Normal motion with internal/external rotation.
--- NOTE | 2022-09-04 14:18 | ECG_ITS ---
[facility] Test Date: 2022-09-04 Pat Name: Marco Antonio Valadez Department: Room: ICU07 Gender: Male Strickler Attendant: : 1940 Requested By: Lisandro Doe Order Number: [id number] Foreign MD: Alla Aguirre M.D. Measurements Intervals [place] Rate: 115 P: 0 MO: 0 QRS: -52 QRSD: 125 T: 79 QT: 319 QTc: 442 Interpretive Statements ATRIAL FIBRILLATION WITH RAPID VENTRICULAR RESPONSE WITH ABERRANT CONDUCTION OR VENTRICULAR PREMATURE COMPLEXES LEFT ANTERIOR FASCICULAR BLOCK [QRS AXIS <= -45, QR IN I, RS IN II] INFERIOR MYOCARDIAL INFARCTION , PROBABLY OLD [40+ ms Q WAVE AND/OR ST/T ABNORMALITY IN II/aVF] Compared to ECG 09/04/2022 10:54:08 Left anterior fascicular block now present Myocardial infarct finding now present Right-axis deviation no longer present Intraventricular conduction delay no longer present Electronically Signed On 09-04-2022 20:39:18 CDT by Alla Aguirre M.D. [id number]
[2022-09-04 14:36] LABS: Hepatitis A Antibody IgM Non-Reactive (Nonreactive); Hepatitis B Core AB, Total Non-Reactive (Nonreactive); Hepatitis B Surface AB 3.5 (11.5-1000); Hepatitis B Surface Antigen Non-Reactive (Nonreactive); Hepatitis C Virus Antibody Non-Reactive (Nonreactive)
--- NOTE | 2022-09-04 15:20 | PM.HP ---
Providers/Chief Complaint Admitting Physician: Rolly Dubose MD Primary Care Provider: Umer Benavidez MD Chief Complaint: AMS History of Present Illness Marco Antonio Valadez is a 82 year old male with metastatic neuroendocrine tumor and end-stage renal disease who lives at [facility] who presented to the emergency department, from his dialysis center. There was concern that he was more lethargic than usual, and blood pressure was low. He had recently been seen in the emergency department yesterday with concerns of cellulitis of his leg. He was given a prescription for Keflex. Patient himself arouses briefly and can say 1 or 2 words before going back to sleep. Emergency department he received norepinephrine, cautious IV fluids, vancomycin, and Zosyn. Further history is not obtainable from the patient. Review of Systems General: Reports: ROS unobtainable due to medical condition Medications/Allergies Home Medications Medication Instructions Recorded Confirmed Last Taken Type albuterol sulfate 90 mcg/actuation 1 puff inhalation QID PRN 03/17/19 09/04/22 12/26/21 History aerosol inhaler Shortness Of Breath duloxetine 20 mg capsule,delayed 20 mg PO BEDTIME@03/17/19 09/04/22 05/19/22 History release gabapentin 100 mg capsule 100 mg PO BEDTIME@03/17/19 09/04/22 05/19/22 History pantoprazole 40 mg tablet,delayed 40 mg PO DAILY@11/10/20 09/04/22 05/20/22 History release ondansetron 4 mg disintegrating 4 mg PO Q8H PRN nausea and 11/30/20 09/04/22 Unknown Rx tablet vomiting #10 tabs cholecalciferol (vitamin D3) 25 25 mcg PO DAILY@03/21/21 09/04/22 05/20/22 History mcg (1,000 unit) tablet (Vitamin D3) apixaban 2.5 mg tablet (Eliquis) 2.5 mg PO BID@09/11/21 09/04/22 05/20/22 History bumetanide 1 mg tablet 1 mg PO DAILY@12/26/21 09/04/22 05/20/22 History isosorbide mononitrate 60 mg 60 mg PO DAILY@12/26/21 09/04/22 05/20/22 History tablet,extended release 24 hr loperamide 2 mg capsule 4 mg PO TID PRN Diarrhea 12/26/21 09/04/22 Unknown History metoprolol tartrate 25 mg tablet 12.5 mg PO Q12H 12/26/21 09/04/22 05/20/22 History cholestyramine (with sugar) 4 gram See Rx Instructions PO DAILY 02/14/22 09/04/22 Unknown History oral powder tamsulosin 0.4 mg capsule 0.4 mg PO BEDTIME@20 05/16/22 09/04/22 05/19/[address] Flores'bill Gargle 30 ml PO BID PRN unknown 05/20/22 09/04/22 Unknown History Prostat Liquid 30 ml PO BEDTIME@20 05/20/22 09/04/22 05/19/22 History acetaminophen 300 mg-codeine 30 mg 1 - 2 tab PO Q6H PRN Pain 05/20/22 09/04/22 Unknown History tablet allopurinol 100 mg tablet 100 mg PO DAILY@05/20/22 09/04/22 05/20/22 History calcium acetate(phosphat bind) 667 2,001 mg PO TID@08,12,17 05/20/22 09/04/22 05/20/22 History mg capsule camphor-menthol 0.2 %-3.5 % 1 applic topical BID PRN unknown 05/20/22 09/04/22 Unknown History topical gel ipratropium bromide 21 mcg (0.03 2 spray intranasal TID@08,16,20 05/20/22 09/04/22 Unknown History %) nasal spray nitroglycerin 0.4 mg sublingual 0.4 mg sublingual Q5M PRN Chest 05/20/22 09/04/22 Unknown History tablet (Nitrostat) Pain vitamin B complex-vitamin C-folic 1 tab PO DAILY@05/20/22 09/04/22 05/20/22 History acid 0.8 mg tablet (Emily-Vinicio) hydrocortisone 1 % topical cream 1 applic topical TID PRN Rash 09/04/22 09/04/22 Unknown History lanthanum 1,000 mg oral powder 1,000 mg PO TID 09/04/22 09/04/22 Unknown History packet loratadine 10 mg tablet (Claritin) 10 mg PO DAILY 09/04/22 09/04/22 Unknown History ondansetron HCl 8 mg tablet See Rx Instructions .Route .COMPLEX 09/04/22 09/04/22 Unknown History Allergies Allergy/AdvReac Type Severity Reaction Status Date / Time Iodinated Contrast Media Allergy Mild ALGY-Hives Verified 09/03/22 03:32 lisinopril Allergy Unknown Verified 09/03/22 03:32 rosuvastatin [From Crestor] Allergy Unknown Verified 09/03/22 03:32 PFSH Acute PFSH: Medical History (Updated 09/04/22 @ 15:36 by Rolly Dubose MD) Aortic stenosis B12 deficiency Chronic anemia Closed fracture of lumbar vertebral body (~11/2020) L5 COPD (chronic obstructive pulmonary disease) Coronary disease Degenerative lumbar spinal stenosis Dyslipidemia End stage renal disease on dialysis GERD (gastroesophageal reflux disease) Hypertension Insulin dependent diabetes mellitus Morbid obesity Neuroendocrine tumor Stage IV, low-grade, around the head of the pancreas/duodenum, with lymph node prominence, treated with sandostatin, follows with Dr Allen, not a surgical candidate Osteoarthritis Peripheral vascular disease including carotid disease Prostate cancer Renal mass bilateral, indeterminant Sleep apnea Systolic and diastolic CHF, chronic Venous stasis Shila-Hernandez syndrome diagnosed in Surgical History H/O prostatectomy History of coronary artery stent placement History of orchiectomy S/P hemodialysis catheter insertion (03/25/21) Family History Other Chronic kidney disease (CKD) Diabetes Hyperlipidemia Hypertension Denies family history of Cancer Social History Smoking and tobacco status: never smoked Alcohol intake: never Substance/Drug Use: never Caregiver/support person: Yes (daughter) Housing: Long-Term Vitals/I&O/Wt Last Vital Signs Temp 98.5 F 09/04/22 08:01 Pulse 110 H 09/04/22 12:39 Resp 16 09/04/22 11:49 BP 98/62 09/04/22 12:39 Pulse Ox 94 09/04/22 12:39 O2 Del Method Nasal Cannula 09/04/22 13:38 O2 Flow Rate 5 09/04/22 12:39 09/04/22 09/04/22 09/04/22 06:59 14:59 22:59 Intake Total 2151.6 / 2151.6 Balance 2151.6 / 2151.6 Weight last 48 hrs Weight 126 kg Physical Exam Narrative: Exam is white male, who can answer a few questions when vigorously stimulated, reporting his left leg hurts. HEENT: Atraumatic and normocephalic. Oropharynx clear. Neck is supple no lymphadenopathy thyromegaly Cardiovascular tachycardic, no murmur Lungs clear but with diminished breath sounds bilaterally Abdomen obese, soft Back demonstrates stage II decubiti, overlying sacrum Extremities show 3+ edema bilaterally. Erythema is noted of the left leg with increased warmth. This tracks from the ankle all the way to mid thigh. Skin see findings above Neuro: No focal deficits. Lethargic. Sepsis: Is patient septic: Yes Focused sepsis exam performed: Yes Date exam was performed: 09/04/22 Time exam was performed: 11:00 Data 09/04/22 08:00 09/04/22 08:00 Other Labs: EGD demonstrates pH 7.35, PCO2 48 on 4.5 L Liver function tests are normal Calcium normal, albumin 3.0 Troponin 210 with repeat of 205 X-ray of hip demonstrates no infiltrate Venous duplex done 09/03 demonstrated no DVT Angiogram December 2021 heavily calcified left main with 60 to 70% stenosis in obtuse marginal with 70 to 80% stenosis and chronic total occlusion of RCA mid. Aggressive medical treatment was recommended. Chest x-ray per my read demonstrates cardiomegaly. Probable left lung infiltrate. Lactic acid 3.0 Micro: Microbiology 09/04/22 10:12 Blood Culture - Preliminary Blood SPECIMEN COLLECTED 09/04/22 10:03 Blood Culture - Preliminary Blood SPECIMEN COLLECTED A&P Assessment and plan (1) Sepsis: Patient presents with lethargy, hypotension, cellulitis and likely pneumonia. Lactic acid is high. With his underlying malignancy and end-stage renal disease, his immune response will not be adequate. White blood cell count is not elevated. There is evidence of endorgan dysfunction with acute encephalopathy. Not a candidate for any more fluid in the emergency department has given him. He is significantly fluid overloaded, at dialysis patient, who has high risk for respiratory failure with additional fluid. (2) Hypotension: Norepinephrine has been initiated. Titrate as tolerated. Hold metoprolol, isosorbide (3) Pneumonia: Vancomycin, Zosyn Unable to be obtained at this time Blood cultures drawn Oxygen as needed, titrate as tolerated Check MRSA PCR (4) Cellulitis: No evidence of DVT Continue to follow clinically X-ray obtained of leg, no evidence of fracture (5) ESRD (end stage renal disease): Consult nephrology for services Normally gets dialysis Friday (6) Neuroendocrine tumor: Followed by oncology. Currently receiving monthly Sandostatin. (7) Acute encephalopathy: Secondary to sepsis. Follow up closely for improvement. Plan Multiple other medical problems as outlined in past medical history Designated allow natural at his nursing facility records He is allow natural on his dialysis records. Trying to obtain nursing facility records and contact family. Continue this desired designation currently. Change Eliquis to heparin for DVT prophylaxis while in the hospital Attestations Medical Necessity Statement*: Will need greater than 2 midnight stay for evaluation and treatment of sepsis requiring IV pressors Critical Care Time: The high probability of a clinically significant, sudden or life threatening deterioration of the patient's [renal, infectious disease, vascular] system(s) required my full and direct attention, intervention and personal management. The critical care time is as shown. This time is in addition to time spent performing any reported procedures but includes the following: [x] Data and vital sign review and interpretation [x] Patient assessment, examination and intervention [x] Documentation [x] Medication orders and management Critical Care Time (min): 64 Coding Level of Care Code Critical Care >/= 30 minutes Critical care time (in minutes): 64 The high probability of a clinically significant, sudden or life threatening deterioration, as referenced in this documentation, required my full and direct attention, intervention and personal management. The critical care time shown is in addition to time spent performing any reported separately billable procedures and includes the following: [x] Data and vital sign review and interpretation [x] Patient assessment, examination and intervention [x] Medication orders and management [x] Patient/Family updates as able [x] Care Coordination and Documentation. Diagnoses Sepsis A41.9 Hypotension I95.9 Pneumonia J18.9 Cellulitis L03.90 ESRD (end stage renal disease) N18.6 Neuroendocrine tumor D3A.8 Acute encephalopathy G93.40
--- NOTE | 2022-09-04 15:52 | P.CONIM_ITS ---
Providers/Reason For Consult Consulting Physician/Specialty*: kommana/Nephrology Reason for Consult*: ESRD Attending Physician: Rolly Dubose MD Primary Care Provider: Umer Benavidez MD History of Present Illness History of Present Illness Marco Antonio Valadez is a 82 year old male Patient is a 77 year old male with history of neuro endocrine tumor , ESRD on HD per [facility] schedule was sent from [place] due to altered mental status. He was sent from his HD center. In ED, noted to have LE cellulitis admitted to ICU . Patient requiring pressors. Review of Systems Narrative: cannot obtain Medications/Allergies Home Medications Medication Instructions Recorded Confirmed Last Taken Type albuterol sulfate 90 mcg/actuation 1 puff inhalation QID PRN 03/17/19 09/04/22 12/26/21 History aerosol inhaler Shortness Of Breath duloxetine 20 mg capsule,delayed 20 mg PO BEDTIME@03/17/19 09/04/22 05/19/22 History release gabapentin 100 mg capsule 100 mg PO BEDTIME@03/17/19 09/04/22 05/19/22 History pantoprazole 40 mg tablet,delayed 40 mg PO DAILY@11/10/20 09/04/22 05/20/22 History release ondansetron 4 mg disintegrating 4 mg PO Q8H PRN nausea and 11/30/20 09/04/22 Unknown Rx tablet vomiting #10 tabs cholecalciferol (vitamin D3) 25 25 mcg PO DAILY@03/21/21 09/04/22 05/20/22 History mcg (1,000 unit) tablet (Vitamin D3) apixaban 2.5 mg tablet (Eliquis) 2.5 mg PO BID@09/11/21 09/04/22 05/20/22 History bumetanide 1 mg tablet 1 mg PO DAILY@12/26/21 09/04/22 05/20/22 History isosorbide mononitrate 60 mg 60 mg PO DAILY@08 12/26/21 09/04/22 05/20/22 History tablet,extended release 24 hr loperamide 2 mg capsule 4 mg PO TID PRN Diarrhea 12/26/21 09/04/22 Unknown History metoprolol tartrate 25 mg tablet 12.5 mg PO Q12H 12/26/21 09/04/22 05/20/22 History cholestyramine (with sugar) 4 gram See Rx Instructions PO DAILY 02/14/22 09/04/22 Unknown History oral powder tamsulosin 0.4 mg capsule 0.4 mg PO BEDTIME@05/16/22 09/04/22 05/19/[address] Flores's Gargle 30 ml PO BID PRN unknown 05/20/22 09/04/22 Unknown History Prostat Liquid 30 ml PO BEDTIME@05/20/22 09/04/22 05/19/22 History acetaminophen 300 mg-codeine 30 mg 1 - 2 tab PO Q6H PRN Pain 05/20/22 09/04/22 Unknown History tablet allopurinol 100 mg tablet 100 mg PO DAILY@05/20/22 09/04/22 05/20/22 History calcium acetate(phosphat bind) 667 2,001 mg PO TID@08,12,05/20/22 09/04/22 05/20/22 History mg capsule camphor-menthol 0.2 %-3.5 % 1 applic topical BID PRN unknown 05/20/22 09/04/22 Unknown History topical gel ipratropium bromide 21 mcg (0.03 2 spray intranasal TID@08,16,05/20/22 09/04/22 Unknown History %) nasal spray nitroglycerin 0.4 mg sublingual 0.4 mg sublingual Q5M PRN Chest 05/20/22 Unknown History tablet (Nitrostat) Pain vitamin B complex-vitamin C-folic 1 tab PO DAILY@05/20/22 09/04/22 05/20/22 History acid 0.8 mg tablet (Emily-Vinicio) hydrocortisone 1 % topical cream 1 applic topical TID PRN Rash 09/04/22 09/04/22 Unknown History lanthanum 1,000 mg oral powder 1,000 mg PO TID 09/04/22 09/04/22 Unknown History packet loratadine 10 mg tablet (Claritin) 10 mg PO DAILY 09/04/22 09/04/22 Unknown History ondansetron HCl 8 mg tablet See Rx Instructions .Route .COMPLEX 09/04/22 09/04/22 Unknown History Allergies Allergy/AdvReac Type Severity Reaction Status Date / Time Iodinated Contrast Media Allergy Mild ALGY-Hives Verified 09/03/22 03:32 lisinopril Allergy Unknown Verified 09/03/22 03:32 rosuvastatin [From Crestor] Allergy Unknown Verified 09/03/22 03:32 Current Medications Generic Name Dose Route Start Last Admin Trade Name Freq PRN Reason Stop Dose Admin Norepinephrine Bitartrate 4 mg 254 mls @ 0 mls/hr 09/04/22 11:30 09/04/22 15:51 / Dextrose IV 12 mcg/min .Q0M TRINIDAD 45.72 mls/hr Titration Protocol Per Protocol PFSH Acute PFSH: Medical History (Updated 09/04/22 @ 15:36 by Rolly Dubose MD) Aortic stenosis B12 deficiency Chronic anemia Closed fracture of lumbar vertebral body (~11/2020) L5 COPD (chronic obstructive pulmonary disease) Coronary disease Degenerative lumbar spinal stenosis Dyslipidemia End stage renal disease on dialysis GERD (gastroesophageal reflux disease) Hypertension Insulin dependent diabetes mellitus Morbid obesity Neuroendocrine tumor Stage IV, low-grade, around the head of the pancreas/duodenum, with lymph node prominence, treated with sandostatin, follows with Dr Allen, not a surgical candidate Osteoarthritis Peripheral vascular disease including carotid disease Prostate cancer Renal mass bilateral, indeterminant Sleep apnea Systolic and diastolic CHF, chronic Venous stasis Shila-Hernandez syndrome diagnosed in Surgical History H/O prostatectomy History of coronary artery stent placement History of orchiectomy S/P hemodialysis catheter insertion (03/25/21) Family History Other Chronic kidney disease (CKD) Diabetes Hyperlipidemia Hypertension Denies family history of Cancer Social History Smoking and tobacco status: never smoked Alcohol intake: never Substance/Drug Use: never Caregiver/support person: Yes (daughter) Housing: Half-Way Vitals/I&O/Wt Last Vital Signs Temp 98.5 F 09/04/22 08:01 Pulse 110 H 09/04/22 12:39 Resp 16 09/04/22 11:49 BP 98/62 09/04/22 12:39 Pulse Ox 94 09/04/22 12:39 O2 Del Method Nasal Cannula 09/04/22 13:38 O2 Flow Rate 5 09/04/22 12:39 09/04/22 09/04/22 09/04/22 06:59 14:59 22:59 Intake Total 2151.6 / 2151.6 37.465 / 2189.065 Balance 2151.6 / 2151.6 37.465 / 2189.065 Weight last 48 hrs Weight 126 kg Physical Exam Narrative: no distress , on bipap + LE edema Data 09/05/22 03:48 09/05/22 03:48 Micro: Microbiology 09/04/22 10:12 Blood Culture - Preliminary Blood SPECIMEN COLLECTED 09/04/22 10:03 Blood Culture - Preliminary Blood SPECIMEN COLLECTED A&P Assessment and plan (1) ESRD (end stage renal disease): Plan 1. End-stage renal disease: HD today and continue MWF schedule 2. Sepsis: Secondary to cellulitis, on pressors, antibiotics per primary team, pressor requirement increased while patient on dialysis. 3. Acute on chronic respiratory failure: Multifactorial, has pneumonia 4. History of neuroendocrine tumor 5. Chronic anemia Patient evaluated using audiovisual cart. Time spent 35 minutes Consult Attestations Medical Necessity Statement: per medicine Coding Level of Care Code Acute Code for g Fwd Diagnoses ESRD (end stage renal disease) N18.6
[2022-09-04] MEDS: albumin 12.5 GM/50 ML VIAL IV (16:05)
[2022-09-04] MEDS: heparin, porcine 1,000 unit/mL INJ 10 mL 10000 UNIT HE (16:15)
[2022-09-04] MEDS: sodium chloride 0.9% 1,000 ML 30 ML IV (16:16)
--- NOTE | 2022-09-04 16:25 | PC.NURSE ---
Telephone consent for dialysis per daughter Jennifer Mauricio.
[2022-09-04 16:29] LABS: Lactic Acid level (Lactate) 2.5 mmol/L (0.5-2.2)
[2022-09-04 16:36] LABS: Troponin 5 6HR Delta -25.6 ng/L (0-12)
--- OUTSIDE RECORDS SUMMARY | 2022-09-04 16:38 | XMS_ITS ---
Author Name Phoebe Sanchez Address [address] [place] [address] Phone [phone] Organization [facility], NA DOCUMENT DISCLAIMER Multiple document versions may exist, please be sure you review the latest version. The information in the [facility] Progress Note Document represents a providers documented clinical note containing certain health and medical information. It may not contain the complete medical history for the patient and should be independently verified. The represented time in the document is Eastern Time PROVIDER ROUNDING NOTE BASIC Patient:?DEVI?ALISHA,?1940,?82y,?M Dialysis?Location:[facility] Attending?Data Warehousing Engineer:?Ethan Service?Date:?08/05/2022 Service?Provider:?Phoebe?Daniel,?PULPING MACHINE OPERATOR I?met?face?to?face?with?the?patient?today. OVERVIEW The?patient?presented?with?ESRD?on?dialysis Primary?cause?of?renal?failure:?Type?2?diabetes?mellitus&#16 0;with?diabetic?chronic?kidney?disease Comments:?VSS,?seen?on?HD?machine,?denies?needs?for?me today? Medications?and?labs?reviewed. LAST?HOSPITALIZATION Discharge?Diagnosis:?S72.115A?Nondisplaced?fracture?of?greater?tr ochanter?of?left?femur,?initial?encounter?for?closed?fracture Admission?Date?05/21/22 Discharge?Date?05/22/22 DIALYSIS?PRESCRIPTION ??IHD?3x?Week?Start?date:?08/02/22 ??Dialyzer:?Optiflux?250NRe ??BFR:?450 ??DFR:?Autoflow?2 ??Potassium:?2.0 ??Sodium:?138 ??EDW:?123.5 ??Duration:?4:30 ??Calcium:?2.5 ??Bicarb:?32 ??Rx?updated?on:?08/02/2022 TREATMENT?ASSESSMENT Blood?pressure?controlled.?No?changes?indicated.? BP?Sit?Pre ??08/02/2022:?101/63 ??07/31/2022:?115/74 ??07/29/2022:?116/73 BP?Sit?Post ??08/02/2022:?125/75 ??07/31/2022:?117/75 ??07/29/2022:?118/63 Tx?Duration ??08/02/2022:?4:32 ??07/31/2022:?4:37 ??07/29/2022:?4:36 Missed?Treatments 0?-?last?30?days 0?-?last?60?days FLUID?ASSESSMENT Comments:?No?new?labs?to?review Fluid?status?acceptable.?Interdialytic?weight?gain?acceptable.?No ?changes?indicated.? EDW?(kg) ??08/02/2022:?123.5 ??07/31/2022:?123.5 ??07/29/2022:?123.5 Weight?Pre?(kg) ??08/02/2022:?125.9 ??07/31/2022:?125.3 ??07/29/2022:?128.8 Weight?Post?(kg) ??08/02/2022:?123.5 ??07/31/2022:?123.0 ??07/29/2022:?123.4 PWV?(kg) ??08/02/2022:?0.0 ??07/31/2022:?-0.5 ??07/29/2022:?-0.1 UF?Rate?(mL/kg/hr) ??08/02/2022:?4.3 ??07/31/2022:?4.1 ??07/29/2022:?9.5 ADEQUACY?ASSESSMENT Comments:?No?new?labs?to?review Adequacy?target?met.?Prescription?compliance?acceptable.?No?changes?indicated.? spKt/V,?URR ??07/17/2022:?1.31,?68.0 ??06/12/2022:?1.41,?69.0 ??05/15/2022:?1.36,?69.0 ACCESS?ASSESSMENT ??Access?Type:?AVFistula ??Access?SubType:?Standard ??Access?Status:?Active?(In?Use)?-?08/02/2022 ??Access?Location:?Right?Upper?Arm ??Created:?05/15/2022 Comments:?avf?is?developing:?scheduled?for?CVC?removal?this ?08/08 Vascular?access?reviewed. ANEMIA?ASSESSMENT Comments:?Improving HGB?at?goal.?Iron?parameters?acceptable.?ANGELIC?dose?adequate.& #160;No?changes?indicated.? HGB,?TSAT ??07/31/2022:?11.0,?- ??07/24/2022:?11.9,?- ??07/17/2022:?11.8,?23.0 ?? Ferritin ??07/17/2022:?484.0 ??06/12/2022:?754.0 ??04/10/2022:?480.0 Epoetin?Herminio?(Epogen),?IVP?(units) ??07/26/2022:?89910 ??07/24/2022:?95587 ??07/22/2022:?76871 Iron?Sucrose?(Venofer)?(mg) ??08/02/2022:?100 ??07/31/2022:?100 ??07/29/2022:?100 BMM?ASSESSMENT Comments:?Phoph?improving PTH?controlled.?Calcium?controlled.?Phosphorus?elevated.? Phosphorus,?Calcium ??07/17/2022:?5.8,?8.0 ??06/28/2022:?6.2,?- ??06/12/2022:?6.9,?8.1 ?? PTH,?Intact ??07/17/2022:?285.0 ??04/10/2022:?334.0 ??01/16/2022:?366.0 Vitamin?D?(Calcitriol)?Oral?(mcg) ??08/02/2022:?0.75 ??07/31/2022:?0.75 ??07/29/2022:?0.75 NUTRITION?ASSESSMENT Comments:?Albumin?improving Albumin,?Potassium ??07/17/2022:?3.4,?5.2 ??06/12/2022:?3.2,?5.6 ??06/05/2022:?-,?4.5 ?? eNPCR ??07/17/2022:?0.59 ??06/12/2022:?0.64 ??05/15/2022:?0.62 PHYSICAL?EXAM Exam?Not?Performed. DIAGNOSIS Chief?Complaint:?N18.6?End?stage?renal?disease Patient?data?updated?08/05/2022?at?8:32?AM Signed?By:?Daniel,?Phoebe,?PULPING MACHINE OPERATOR??on?08/05/2022?8:34:09 AM END OF DOCUMENT
--- OUTSIDE RECORDS SUMMARY | 2022-09-04 16:38 | XMS_ITS ---
Author Name Phoebe Sanchez Address [address] [place] [address] Phone [phone] Organization [facility], NA DOCUMENT DISCLAIMER Multiple document versions may exist, please be sure you review the latest version. The information in the [facility] Progress Note Document represents a providers documented clinical note containing certain health and medical information. It may not contain the complete medical history for the patient and should be independently verified. The represented time in the document is Eastern Time PROVIDER ROUNDING NOTE COMPREHENSIVE Patient:?DEVI?ALISHA,?1940,?82y,?M Dialysis?Location:[place] Attending?Motor Polarizer:?Ethan Service?Date:?05/15/2022 Service?Provider:?Phoebe?Daniel,?BIOLOGICAL CHEMIST I?met?face?to?face?with?the?patient?today. 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 HOME?MEDICATIONS Comments:?add?flomax?for?bph/?voiding?issues?w?prostate cancer. DIALYSIS?PRESCRIPTION ??IHD?3x?Week?Start?date:?04/05/22 ??Dialyzer:?Optiflux?250NRe ??BFR:?450 ??DFR:?Autoflow?2 ??Potassium:?2.0 ??Sodium:?138 ??EDW:?122.5 ??Duration:?4:30 ??Calcium:?2.5 ??Bicarb:?32 ??Rx?updated?on:?04/05/2022 TREATMENT?ASSESSMENT Comments:?No?new BP?Sit?Pre ??05/13/2022:?128/80 ??05/10/2022:?113/75 ??05/08/2022:?123/69 BP?Sit?Post ??05/13/2022:?127/84 ??05/10/2022:?122/71 ??05/08/2022:?134/83 Tx?Duration ??05/13/2022:?4:43 ??05/10/2022:?4:37 ??05/08/2022:?4:32 Missed?Treatments 0?-?last?30?days 0?-?last?60?days FLUID?ASSESSMENT Comments:?stable EDW?(kg) ??05/13/2022:?122.5 ??05/10/2022:?122.5 ??05/08/2022:?122.5 Weight?Pre?(kg) ??05/13/2022:?125.4 ??05/10/2022:?125.2 ??05/08/2022:?125.8 Weight?Post?(kg) ??05/13/2022:?122.4 ??05/10/2022:?121.9 ??05/08/2022:?123.2 PWV?(kg) ??05/13/2022:?-0.1 ??05/10/2022:?-0.6 ??05/08/2022:?0.7 UF?Rate?(mL/kg/hr) ??05/13/2022:?5.2 ??05/10/2022:?5.9 ??05/08/2022:?4.7 ADEQUACY?ASSESSMENT Comments:?No?new?labs?to?review Adequacy?target?met.?Prescription?compliance?acceptable.? spKt/V,?URR ??04/10/2022:?1.39,?69.0 ??04/03/2022:?1.13,?61.0 ??03/18/2022:?1.32,?67.0 ACCESS?ASSESSMENT ??Access?Type:?CVCatheter ??Access?SubType:?Tunneled ??Access?Status:?Active?(In?Use)?-?03/29/2022 ??Access?Location:?Chest ??Placed:?--/--/---- Comments:?AVG?placed?yesterday?05/14/22.?? Vascular?access?reviewed.?New?access?developing?-?awaiting?use. ANEMIA?ASSESSMENT Anemia?reviewed.?Anemia?targets?met.? HGB ??05/08/2022:?10.3 ??05/01/2022:?11.2 ??04/24/2022:?10.7 ?? Ferritin ??04/10/2022:?480.0 ??03/13/2022:?808.0 ??02/13/2022:?664.0 Epoetin?Herminio?(Epogen),?IVP?(units) ??05/13/2022:?7200 ??05/10/2022:?7200 ??05/08/2022:?7200 Iron?Sucrose?(Venofer)?(mg) ??02/22/2022:?100 ??02/20/2022:?100 ??02/18/2022:?100 BMM?ASSESSMENT Comments:?No?new?labs?to?review.? Phosphorus,?Calcium ??04/10/2022:?4.7,?8.2 ??03/13/2022:?5.2,?8.1 ??02/13/2022:?5.0,?8.1 ?? PTH,?Intact ??04/10/2022:?334.0 ??01/16/2022:?366.0 Vitamin?D?(Calcitriol)?Oral?(mcg) ??05/13/2022:?0.75 ??05/10/2022:?0.75 ??05/08/2022:?0.75 NUTRITION?ASSESSMENT Comments:?No?new?labs?to?review:?continue?protein?supplement Nutrition?reviewed.? Albumin,?Potassium ??04/10/2022:?3.1,?5.7 ??03/13/2022:?3.5,?5.3 ??02/13/2022:?3.3,?5.2 ?? eNPCR ??04/10/2022:?0.55 ??04/03/2022:?0.53 ??03/18/2022:?0.62 PHYSICAL?EXAM Exam?Not?Performed. DIAGNOSIS Chief?Complaint:?N18.6?End?stage?renal?disease Patient?data?updated?05/15/2022?at?9:05?AM Signed?By:?Daniel,?Phoebe,?BIOLOGICAL CHEMIST??on?05/15/2022?9:24:30 AM END OF DOCUMENT
--- OUTSIDE RECORDS SUMMARY | 2022-09-04 16:38 | XMS_ITS ---
Author Name Bernie Ballesteros Address [address] [place] [address] Phone [phone] Organization [facility], NA DOCUMENT DISCLAIMER Multiple document versions may exist, please be sure you review the latest version. The information in the [facility] Progress Note Document represents a providers documented clinical note containing certain health and medical information. It may not contain the complete medical history for the patient and should be independently verified. The represented time in the document is Eastern Time PROVIDER ROUNDING NOTE COMP Provider?Rounding?Note?Comp?-?DEVI?ALISHA?-?Chart?#: [id number] Patient?was?seen?on:?04/17/2022 Was?Patient?seen?today?:?04/17/2022 Method?of?Interaction:?Face?to?face Date?of?Interaction:?04/17/2022 Patient?is?stable ?-?Optimal?weight?addressed?with?patient?and?staff.? ?-?Medications?and?labs?reviewed.? Patient?issues?include: He?is?still?with?a?lot?of?large?fluid?gains.?He&#1 60;makes?a?couple?of?cups?of?urine?a?day.?Lower?le g?edema?some?of?which?appears?to?be?chronic?such?a s?lymph?edema;?however?did?discuss?about?his?fluid?gain s.?He?eats?a?lot?of?ice?and?drinks?a?lot?of&# 160;coffee.?He?is?at?a?[facility].?Has?complaints?of?burning&#1 60;in?his?bladder?area.?Will?check?UA?by?straight?cath per?NH. Prior?Treatment:?04/15/2022? Dialyzer:?Optiflux?250NRe? Dialysate:?2.0?K,?2.5 Ca,?1.0?Mg,?100?Dextrose?(G2251)? Actual?Time:?04:35?Prescribed?Time:?4:30? Avg?BFR:?450?Avg?DFR:?790? Wt?Gain?(kg):?6.90?EDW?(kg):?122.50? post?Wt?(kg):? Ed?on?fluid?gains;?is?residing?at?a?NH?so?difficult VITALS ?Date:?Temperature:?Pulse:?Respirations:?BP?(Sitting):?BP?(Standing):?Weight:? Volume?Management?Comments ADEQUACY ?spKt/V?eKdrt/V?OLC?(Del)?spKtv?1.39?04/10/22 ???1.25 ?04/10/22 ???1.24?04/15/22 ???1.13?04/03/22 ???1.03 ?04/03/22 ???1.13?04/12/22 ???1.32?03/18/22 ???1.19 ?03/18/22 ???1.41?04/10/22 ?URR?Potassium,?Serum?&#160 ;?Bicarbonate?Creatinine?%?mEq/L?mEq/L?&#16 0;?mg/dL ?69?04/10/22 ?? 5.7?04/10/22 ???24?04/10/22 ???4.86?04/10/22 ???61?04/03/22 ?? 5.3?03/13/22 ???24?03/13/22 ???5.16?03/13/22 ???67?03/18/22 ?? 5.2?02/13/22 ???25?02/13/22 ???5.17?02/13/22 ?-?Adequacy?parameters?reviewed? Adequacy ?-?Adequacy?target?met?Sitting?BP?Pre?Sitting BP?Post?Standing?BP?Post?94?/?58??04/15/22?133?/ 82??04/15/22?113?/?83??04/12/22?135?/?94??04/12/22?91?/?65??04/10/22?121?/ 74??04/10/22? Blood?Pressure ?-?Blood?pressure?controlled? Fluid?Status ?-?Fluid?status?not?acceptable? Interdialytic?Weight?Gain ?-?Interdialytic?weight?gain?acceptable? Prescription?Compliance ?-?Prescription?compliance?acceptable? ?-?Potassium?controlled? He?maxed?on?everything?regarding?kt/v.?He?has?a?tunnele d?cath.?He?has?had?cardic?clearance?for?an?AVF.?AV F?on?05/14/22.??Potassium?higher?normal?side.?Lives?at&#1 60;NH?math coach?does?discuss?wiwt?NH?math coach. VASCULAR?ACCESS ?Type?Exit?Site?&#1 60;??Status?Access?ID?CVCatheter-Tunneled?Chest?Active?(In?Use)?[id number]?-?Vascular?access?reviewed? ??-?Referral?has?been?made?for?fistula/graft?placement.? ANEMIA ?HGB? Transferrin?Sat.?(Calc) ?Ferritin?g/dL?%?ng/m L?11.2?04/10/22? ??24?04/10/22?480?04/10/22? ??11.0?04/03/22? ??25?03/13/22?808?03/13/22? ??11.2?03/27/22? ??25?02/13/22?664?02/13/22? Erythropoietin-Stimulating?Agents?(ANGELIC)?Administrations ??7200?units?Epogen???04/15/22 ??9600?units?Epogen???04/12/22 ??9600?units?Epogen???04/10/22 IV?Iron?Administrations ??100?mg?Venofer?02/22/22 ??100?mg?Venofer?02/20/22 ??100?mg?Venofer?02/18/22 ?-?Anemia?reviewed? ?-?Anemia?targets?met? ?-?ANGELIC?adjusted?per?protocol? ?-?Iron?deficiency?noted-iron?protocol?initiated? BONE?AND?MINERAL?METABOLISM ?Calcium,?Total?Calcium,?Corrected?Phosphorous? &#160 ;?PTH-Intact,?Plasma?mg/dL?mg/dL?mg/dL?pg/mL?8.2?04/10/22? ??8.9?04/10/22? ??4.7?&#16 0;???04/10/22? ??334?04/10/22? ??8.1?03/13/22? ??8.5?03/13/22? ??5.2?&#16 0;???03/13/22? ??366?01/16/22? ??8.1?02/13/22? ??8.7?02/13/22? ??5.0?&#16 0;???02/13/22? ??286?10/17/21? Vitamin?D?25?Hydroxy ??24.9?02/13/22 ??26.5?04/02/21 Vitamin?D?Analogue?Administrations ??0.75?mcg?Vitamin?D??04/15/22 ??0.75?mcg?Vitamin?D??04/12/22 ??0.75?mcg?Vitamin?D??04/10/22 ?-?Bone?and?mineral?metabolism?parameters?reviewed? ?-?Calcium?controlled? ?-?Phosphorus?controlled? ?-?Counseled?regarding?dietary?compliance? ?-?Referred?to?dietitian?for?further?counseling? PTH ?-?PTH?within?target? NUTRITION ?Albumin?eNPCR?g/dL?g/kg/day?3.1?04/10/22? ??0.55 ?04/10/22? ??3.5?03/13/22? ??0.53 ?04/03/22? ??3.3?02/13/22? ??0.62 ?03/18/22? ?-?Nutrition?reviewed? ?-?Caloric?intake?addressed? ?-?Referred?to?dietitian?for?further?counseling? ?-?Patient?taking?protein?supplements? HOME?MEDICATIONS ?acetaminophen-codeine?(acetaminophen-codeine)??300-30?mg,?oral,? 1?tablet?every?six?hours ?albuterol?sulfate?(albuterol?sulfate)??90?mcg/actuation,?in hl,?1?puff?as?directed ?allopurinol?(allopurinol)??100?mg,?oral,?1?tablet?once?a?day ?bumetanide?(bumetanide)??1?mg,?oral,?1?tablet?once a?day ?calcium?acetate?(calcium?acetate)??667?mg,?oral,?3&#16 0;tablet?three?times?a?day ?cholestyramine?(bulk)?(cholestyramine?(bulk))??,?,?4?gram?once?a?day ??Gargle?()??,?,?30?ml?twice?a day??[for?dry/irritated?throat] ?duloxetine?(duloxetine)??20?mg,?oral,?1?capsule?every night ?Eliquis?(apixaban)??2.5?mg,?oral,?1?tablet?twice?a?day ?Flomax?(tamsulosin)??0.4?mg,?oral,?1?capsule?every night ?Flonase?Allergy?Relief?(fluticasone?propionate)??50?mcg/act uation,?nasl,?2?spray?once?a?day ?gabapentin?(gabapentin)??100?mg,?oral,?1?capsule?once a?day ?Imodium?A-D?(loperamide)??2?mg,?oral,?2?tablet?three?times?a?day ?ipratropium?bromide?(ipratropium?bromide)??21?mcg?(0.03&#16 0;%),?nasl,?2?spray?three?times?a?day ?isosorbide?mononitrate?(isosorbide?mononitrate)??60?mg,?ora l,?1?tablet?once?a?day ?Lantus?Solostar?U-100?Insulin?(insulin?glargine)??100? unit/mL?(3?mL),?subQ,?30?unit?twice?a?day...?There&#160 ;are?additional?active?home?medications?for?this?patient.?Pl ease?view?in?Clinical?Summary EXAM ?-?Vital?signs?reviewed? Pulmonary ?-?LUNGS?-?clear? Cardiovascular ?-?CV?-?Blood?pressure?noted? ?-?CV?-?murmur?present? ?-?CV?-?RRR? Edema ?-?EXT?-?3+?edema? Feet ?-?EXT?-?no?ulcers? Chronic?leg?edema TRANSPLANT?STATUS ?Person?Taught: ??-?Patient? ?Additional?Education?Required:?No ?Date?Given:?04/11/2021 INTEREST?AND?ELIGIBILITY?(If?changes?are?made,?Please?notify?SW?below) ?Date?of?discussion?from?transplant?assessment:?03/13/2022 ?Patient?already?on?transplant?list??No Bernie?Favian,? END OF DOCUMENT
--- OUTSIDE RECORDS SUMMARY | 2022-09-04 16:38 | XMS_ITS ---
Author Name Jose Daniel Lorenzo Address [address] [place] [address] Phone [phone] Organization [facility], NA DOCUMENT DISCLAIMER Multiple document versions may exist, please be sure you review the latest version. The information in the [facility] Progress Note Document represents a providers documented clinical note containing certain health and medical information. It may not contain the complete medical history for the patient and should be independently verified. The represented time in the document is Eastern Time PROVIDER ROUNDING NOTE COMPREHENSIVE Patient:URBANO?ALISHA,?1940,?82y,?M Dialysis?Location:[place] Attending?Hydraulic Blocker:?Ethan Service?Date:?07/03/2022 Service?Provider:?Jose Daniel?Maura,? I?met?face?to?face?with?the?patient?today. OVERVIEW The?patient?presented?with?ESRD?on?dialysis Primary?cause?of?renal?failure:?Type?2?diabetes?mellitus&#16 0;with?diabetic?chronic?kidney?disease Comments:?will?make?sure?getting?binders?with?SNF.??Dec reased?UOP.?AVF?maturing.?Cortisone?for?rash?on?chest.? Medications?and?labs?reviewed. LAST?HOSPITALIZATION Discharge?Diagnosis:?S72.115A?Nondisplaced?fracture?of?greater?tr ochanter?of?left?femur,?initial?encounter?for?closed?fracture Admission?Date?05/21/22 Discharge?Date?05/22/22 DIALYSIS?PRESCRIPTION ??IHD?3x?Week?Start?date:?06/12/22 ??Dialyzer:?Optiflux?250NRe ??BFR:?450 ??DFR:?Autoflow?2 ??Potassium:?2.0 ??Sodium:?138 ??EDW:?123.5 ??Duration:?4:30 ??Calcium:?2.5 ??Bicarb:?32 ??Rx?updated?on:?06/12/2022 TREATMENT?ASSESSMENT Blood?pressure?controlled.?No?changes?indicated.? BP?Sit?Pre ??07/01/2022:?113/69 ??06/28/2022:?104/65 ??06/26/2022:?106/76 BP?Sit?Post ??07/01/2022:?112/66 ??06/28/2022:?114/74 ??06/26/2022:?130/82 Tx?Duration ??07/01/2022:?4:20 ??06/28/2022:?4:31 ??06/26/2022:?2:34 Missed?Treatments 0?-?last?30?days 0?-?last?60?days FLUID?ASSESSMENT EDW?(kg) ??07/01/2022:?123.5 ??06/28/2022:?123.5 ??06/26/2022:?123.5 Weight?Pre?(kg) ??07/01/2022:?128.0 ??06/28/2022:?127.8 ??06/26/2022:?126.5 Weight?Post?(kg) ??07/01/2022:?123.4 ??06/28/2022:?123.9 ??06/26/2022:?124.7 PWV?(kg) ??07/01/2022:?-0.1 ??06/28/2022:?0.4 ??06/26/2022:?1.2 UF?Rate?(mL/kg/hr) ??07/01/2022:?8.6 ??06/28/2022:?7 ??06/26/2022:?5.6 ADEQUACY?ASSESSMENT Adequacy?target?met.?Prescription?compliance?acceptable.?No?rice es?indicated.?Mild?pruritus.? spKt/V,?URR ??06/12/2022:?1.41,?69.0 ??05/15/2022:?1.36,?69.0 ??04/10/2022:?1.39,?69.0 ACCESS?ASSESSMENT ??Access?Type:?CVCatheter ??Access?SubType:?Tunneled ??Access?Status:?Active?(In?Use)?-?03/29/2022 ??Access?Location:?Chest ??Placed:?--/--/---- Comments:?avf?is?developing Vascular?access?reviewed.?New?access?developing?-?awaiting?use. ANEMIA?ASSESSMENT Comments:?Improving ANGELIC?adjusted?per?protocol.?Anemia?reviewed.?Anemia?targets?met.? HGB,?TSAT ??06/26/2022:?10.3,?- ??06/19/2022:?10.2,?- ??06/12/2022:?9.8,?21.0 ?? Ferritin ??06/12/2022:?754.0 ??04/10/2022:?480.0 ??03/13/2022:?808.0 Epoetin?Herminio?(Epogen),?IVP?(units) ??07/01/2022:?47123 ??06/28/2022:?20856 ??06/26/2022:?65145 Iron?Sucrose?(Venofer)?(mg) ??06/10/2022:?100 ??06/07/2022:?100 ??06/05/2022:?100 BMM?ASSESSMENT Bone?and?mineral?metabolism?parameters?reviewed.?Calcium?controll ed.?Phosphorus?controlled.?Phosphorus?binders?adjusted.?Hyperphosphate kita?noted.?Referred?to?assistant refinery operator?for?further?counseling.?PTH?within?target.? Phosphorus,?Calcium ??06/28/2022:?6.2,?- ??06/12/2022:?6.9,?8.1 ??05/15/2022:?5.9,?7.9 ?? PTH,?Intact ??04/10/2022:?334.0 ??01/16/2022:?366.0 Vitamin?D?(Calcitriol)?Oral?(mcg) ??07/01/2022:?0.75 ??06/28/2022:?0.75 ??06/26/2022:?0.75 NUTRITION?ASSESSMENT Nutrition?reviewed.?Caloric?intake?addressed.? Albumin,?Potassium ??06/12/2022:?3.2,?5.6 ??06/05/2022:?-,?4.5 ??05/15/2022:?3.5,?6.0 ?? eNPCR ??06/12/2022:?0.64 ??05/15/2022:?0.62 ??04/10/2022:?0.55 PHYSICAL?EXAM Exam?Performed.?Vital?Signs?Reviewed.?Lungs?-?Clear.?CV&#160 ;-?Blood?pressure?noted.?CV?-?RRR. DIAGNOSIS Chief?Complaint:?N18.6?End?stage?renal?disease Patient?data?updated?07/03/2022?at?8:57?AM Signed?By:?Maura,?Jose Daniel,???on?07/09/2022?8:48:14 PM END OF DOCUMENT
--- OUTSIDE RECORDS SUMMARY | 2022-09-04 16:38 | XMS_ITS ---
Author Name Tammie Quiñones Address [address] [place] [address] Phone [phone] Organization [facility], NA DOCUMENT DISCLAIMER Multiple document versions may exist, please be sure you review the latest version. The information in the [facility] Progress Note Document represents a providers documented clinical note containing certain health and medical information. It may not contain the complete medical history for the patient and should be independently verified. The represented time in the document is Eastern Time PROVIDER ROUNDING NOTE COMPREHENSIVE Patient:URBANO?ALISHA,?1940,?82y,?M Dialysis?Location:[place] Attending?Customer Success Intern:?Bernie?Favian Service?Date:?08/19/2022 Service?Provider:?Tammie?Nuria,? I?met?face?to?face?with?the?patient?today. OVERVIEW The?patient?presented?with?ESRD?on?dialysis Primary?cause?of?renal?failure:?Type?2?diabetes?mellitus&#16 0;with?diabetic?chronic?kidney?disease Medications?and?labs?reviewed. HOME?MEDICATIONS Home?Medications:? ??clobetasol?0.05%,?to?affected?area,?Apply?1?a?small?amount?twice?a?day ??Vitamin?D3?(cholecalciferol?(vitamin?d3))?125?mcg?(5, 000?unit),?by?mouth,?Take?1?tablet?once?a?day ??Claritin?(loratadine)?10?mg,?by?mouth,?1?tablet?once?a?day ??lanthanum?1,000?mg,?by?mouth,?Take?2?packet?thre e?times?a?day?with?meals?2?packets?in?drink?or&#16 0;sprinkle?on?applesauce?TID?with?meals ??tamsulosin?0.4?mg,?by?mouth,?Take?1?capsule?at bedtime ??metoprolol?tartrate?tablet?12.5,?by?mouth,?Take?1&#16 0;tablet?twice?a?day?HOLD?on?Mon,?Wed?and?Fri?mornings ??acetaminophen-codeine?300-30?mg,?by?mouth,?Take?1?tab let?every?six?hours?as?needed?for?pain?1-2?tabs?PRN ??ondansetron?HCl?(ondansetron?hcl)?8?mg,?by?mouth,&#16 0;Take?2?tablet?once?a?day?prior?to?dialysis ??cholestyramine?(bulk)?4?gram,?dissolved?in?water,?Take?4?gram?once?a?day ??gabapentin?100?mg,?by?mouth,?Take?1?capsule?at bedtime ??bumetanide?1?mg,?by?mouth,?Take?1?tablet?once a?day ??calcium?acetate?667?mg,?by?mouth,?Take?3?tablet three?times?a?day ??isosorbide?mononitrate?60?mg,?by?mouth,?Take?1?tablet?once?a?day ??ipratropium?bromide?21?mcg?(0.03?%),?into?both?n ostrils,?Rialto?2?spray?three?times?a?day ??Renal-Vinicio?(b?complex-vitamin?c-folic?acid)?0.8?mg,?b y?mouth,?Take?1?tablet?once?a?day ??Eliquis?(apixaban)?2.5?mg,?by?mouth,?Take?1?tablet?twice?a?day ??duloxetine?20?mg,?by?mouth,?Take?1?capsule?every?night ??allopurinol?100?mg,?by?mouth,?Take?1?tablet?once?a?day ??pantoprazole?40?mg,?by?mouth,?Take?1?tablet?once?a?day ???[place]?30?ml,?by?mouth,?Drink?30&#160 ;ml?twice?a?day?as?needed?for?dry/irritated?throat ??Imodium?A-D?(loperamide)?2?mg,?by?mouth,?Take?2& #160;tablet?three?times?a?day?as?needed ??ondansetron?HCl?(ondansetron?hcl)?4?mg,?by?mouth,&#16 0;Take?1?tablet?every?eight?hours?as?needed ??nitroglycerin?0.4?mg,?under?tongue,?Place?1?tablet&#1 60;as?needed?place?1?under?tongue?every?5?minutes?as needed?for?chest?pain. ??albuterol?sulfate?90?mcg/actuation,?using?inhaler,?Inhale& #160;1?puff?as?directed?as?needed Allergies:? ??Iodine?and?Iodide?Containing?Products,?lisinopril,?rosuvastatin LAST?HOSPITALIZATION Discharge?Diagnosis:?S72.115A?Nondisplaced?fracture?of?greater?tr ochanter?of?left?femur,?initial?encounter?for?closed?fracture Admission?Date?05/21/22 Discharge?Date?05/22/22 DIALYSIS?PRESCRIPTION ??IHD?3x?Week?Start?date:?08/09/22 ??Dialyzer:?Optiflux?250NRe ??BFR:?450 ??DFR:?Autoflow?2 ??Potassium:?2.0 ??Sodium:?138 ??EDW:?123.5 ??Duration:?4:30 ??Calcium:?2.5 ??Bicarb:?32 ??Rx?updated?on:?08/09/2022 TREATMENT?ASSESSMENT Blood?pressure?controlled.?No?changes?indicated.? BP?Sit?Pre ??08/16/2022:?122/74 ??08/14/2022:?112/65 ??08/12/2022:?104/66 BP?Sit?Post ??08/16/2022:?114/73 ??08/14/2022:?103/70 ??08/12/2022:?102/68 Tx?Duration ??08/16/2022:?4:28 ??08/14/2022:?4:35 ??08/12/2022:?4:22 Missed?Treatments 0?-?last?30?days 0?-?last?60?days FLUID?ASSESSMENT Fluid?status?acceptable.?Interdialytic?weight?gain?acceptable.?No ?changes?indicated.? EDW?(kg) ??08/16/2022:?123.5 ??08/14/2022:?123.5 ??08/12/2022:?123.5 Weight?Pre?(kg) ??08/16/2022:?126.7 ??08/14/2022:?126.7 ??08/12/2022:?127.8 Weight?Post?(kg) ??08/16/2022:?123.7 ??08/14/2022:?124.1 ??08/12/2022:?124.3 PWV?(kg) ??08/16/2022:?0.2 ??08/14/2022:?0.6 ??08/12/2022:?0.8 UF?Rate?(mL/kg/hr) ??08/16/2022:?5.4 ??08/14/2022:?4.6 ??08/12/2022:?6.4 ADEQUACY?ASSESSMENT Adequacy?target?met.?Prescription?compliance?acceptable.?No?changes?indicated.? spKt/V,?URR ??08/14/2022:?1.37,?69.0 ??08/07/2022:?1.32,?68.0 ??07/17/2022:?1.31,?68.0 ACCESS?ASSESSMENT ??Access?Type:?AVFistula ??Access?SubType:?Standard ??Access?Status:?Active?(In?Use)?-?08/02/2022 ??Access?Location:?Right?Upper?Arm ??Created:?05/15/2022 Comments:?line?removed,?using?AVF Vascular?access?reviewed.?Current?access?is?permanent?and?functioning?well. ANEMIA?ASSESSMENT HGB?at?goal.?Iron?parameters?acceptable.?No?changes?indicated.? HGB,?TSAT ??08/14/2022:?11.1,?32.0 ??08/07/2022:?11.6,?- ??07/31/2022:?11.0,?- ?? Ferritin ??07/17/2022:?484.0 ??06/12/2022:?754.0 ??04/10/2022:?480.0 Epoetin?Herminio?(Epogen),?IVP?(units) ??08/09/2022:?9000 ??08/07/2022:?9000 ??08/05/2022:?9000 Iron?Sucrose?(Venofer)?(mg) ??08/14/2022:?100 ??08/12/2022:?100 ??08/09/2022:?100 BMM?ASSESSMENT Comments:?Phoph?improving PTH?controlled.?Calcium?controlled.?Phosphorus?controlled.?No?anastacia nges?indicated.? Phosphorus,?Calcium ??08/14/2022:?5.7,?7.9 ??07/17/2022:?5.8,?8.0 ??06/28/2022:?6.2,?- ?? PTH,?Intact ??07/17/2022:?285.0 ??04/10/2022:?334.0 Vitamin?D?(Calcitriol)?Oral?(mcg) ??08/16/2022:?0.75 ??08/14/2022:?0.75 ??08/12/2022:?0.75 NUTRITION?ASSESSMENT Potassium?controlled.?Albumin?below?goal.?Diet?reviewed?with&#160 ;patient.?Referred?to?dietitian.? Albumin,?Potassium ??08/14/2022:?3.3,?5.0 ??07/17/2022:?3.4,?5.2 ??06/12/2022:?3.2,?5.6 ?? eNPCR ??08/14/2022:?0.63 ??08/07/2022:?0.64 ??07/17/2022:?0.59 PHYSICAL?EXAM Exam?Performed.?Vital?Signs?Reviewed.?Lungs?-?Clear.?CV&#160 ;-?Blood?pressure?noted.?CV?-?RRR.?EXT?-?No?edema.?EXT?-?No?ulcers. DIAGNOSIS Chief?Complaint:?N18.6?End?stage?renal?disease Patient?is?stable.?Patient?discussed?with?nursing. Patient?data?updated?08/19/2022?at?8:46?AM Signed?By:?Nuria,?Tammie,???on?08/19/2022?8:51:32?AM END OF DOCUMENT
--- OUTSIDE RECORDS SUMMARY | 2022-09-04 16:38 | XMS_ITS ---
Author Name Phoebe Sanchez Address [address] [place] [address] Phone [phone] Organization [facility], NA DOCUMENT DISCLAIMER Multiple document versions may exist, please be sure you review the latest version. The information in the [facility] Progress Note Document represents a providers documented clinical note containing certain health and medical information. It may not contain the complete medical history for the patient and should be independently verified. The represented time in the document is Eastern Time PROVIDER ROUNDING NOTE COMPREHENSIVE Patient:?DEVI?ALISHA,?1940,?82y,?M Dialysis?Location:[place] Attending?Buyer Grain:?Ethan Service?Date:?03/20/2022 Service?Provider:?Phoebe?Daniel,?SENIOR BOILER OPERATOR I?met?face?to?face?with?the?patient?today. 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 Encouraged?need?for?lower?fluid?intake. VSS,?seen?on?HD?machine,?denies?needs?for?me?today Medications?and?labs?reviewed. DIALYSIS?PRESCRIPTION ??IHD?3x?Week?Start?date:?12/28/21 ??Dialyzer:?Optiflux?250NRe ??BFR:?450 ??DFR:?Autoflow?2 ??Potassium:?2.0 ??Sodium:?138 ??EDW:?124.5 ??Duration:?4:30 ??Calcium:?2.5 ??Bicarb:?32 ??Rx?updated?on:?12/27/2021 TREATMENT?ASSESSMENT Blood?pressure?controlled.?No?changes?indicated.? BP?Sit?Pre ??03/18/2022:?116/69 ??03/15/2022:?102/67 ??03/13/2022:?132/77 BP?Sit?Post ??03/18/2022:?139/80 ??03/15/2022:?122/81 ??03/13/2022:?167/91 Tx?Duration ??03/18/2022:?4:36 ??03/15/2022:?4:32 ??03/13/2022:?3:29 Missed?Treatments 1?-?last?30?days 1?-?last?60?days 03/06?-?recent FLUID?ASSESSMENT Comments:?stable Fluid?status?acceptable.?Interdialytic?weight?gain?acceptable.?No ?changes?indicated.? EDW?(kg) ??03/18/2022:?124.5 ??03/15/2022:?124.5 ??03/13/2022:?124.5 Weight?Pre?(kg) ??03/18/2022:?128.9 ??03/15/2022:?127.7 ??03/13/2022:?126.4 Weight?Post?(kg) ??03/18/2022:?124.2 ??03/15/2022:?124.5 ??03/13/2022:?124.9 PWV?(kg) ??03/18/2022:?-0.3 ??03/15/2022:?0.0 ??03/13/2022:?0.4 UF?Rate?(mL/kg/hr) ??03/18/2022:?8.2 ??03/15/2022:?5.7 ??03/13/2022:?3.4 ADEQUACY?ASSESSMENT Adequacy?target?met.?Prescription?compliance?acceptable.?No?changes?indicated.? spKt/V,?URR ??03/18/2022:?1.32,?67.0 ??03/15/2022:?1.4,?70.0 ??02/18/2022:?1.36,?67.0 ACCESS?ASSESSMENT ??Access?Type:?CVCatheter ??Access?SubType:?Tunneled ??Access?Status:?Active?(In?Use)?-?04/01/2021 ??Access?Location:?Chest ??Placed:?03/25/2021 Comments:?Cardiac?clearance?received,?orders?sent,?awaiting?sched uling?for?access?placement.? Vascular?access?reviewed. ANEMIA?ASSESSMENT Anemia?reviewed.?Anemia?targets?met.? HGB,?TSAT ??03/13/2022:?10.9,?25.0 ??03/08/2022:?10.3,?- ??02/27/2022:?10.2,?- ?? Ferritin ??03/13/2022:?808.0 ??02/13/2022:?664.0 ??01/16/2022:?502.0 Epoetin?Herminio?(Epogen),?IVP?(units) ??03/18/2022:?9600 ??03/15/2022:?9600 ??03/13/2022:?9600 Iron?Sucrose?(Venofer)?(mg) ??02/22/2022:?100 ??02/20/2022:?100 ??02/18/2022:?100 BMM?ASSESSMENT Bone?and?mineral?metabolism?parameters?reviewed.?Calcium?controll ed.?Phosphorus?controlled.?PTH?within?target.? Phosphorus,?Calcium ??03/13/2022:?5.2,?8.1 ??02/13/2022:?5.0,?8.1 ??01/16/2022:?4.7,?8.3 ?? PTH,?Intact ??01/16/2022:?366.0 ??10/17/2021:?286.0 Vitamin?D?(Calcitriol)?Oral?(mcg) ??03/18/2022:?0.75 ??03/15/2022:?0.75 ??03/13/2022:?0.75 NUTRITION?ASSESSMENT Nutrition?reviewed.?Potassium?controlled.? Albumin,?Potassium ??03/13/2022:?3.5,?5.3 ??02/13/2022:?3.3,?5.2 ??01/16/2022:?3.4,?5.4 ?? eNPCR ??03/18/2022:?0.62 ??03/15/2022:?0.64 ??02/18/2022:?0.67 PHYSICAL?EXAM Exam?Not?Performed. DIAGNOSIS Chief?Complaint:?N18.6?End?stage?renal?disease Patient?data?updated?03/20/2022?at?8:30?AM Signed?By:?Daniel,?Phoebe,?SENIOR BOILER OPERATOR??on?03/20/2022?8:31:49 AM END OF DOCUMENT
--- OUTSIDE RECORDS SUMMARY | 2022-09-04 16:38 | XMS_ITS ---
Author Name Phoebe Sanchez Address [address] [place] [address] Phone [phone] Organization [facility], NA DOCUMENT DISCLAIMER Multiple document versions may exist, please be sure you review the latest version. The information in the [facility] Progress Note Document represents a providers documented clinical note containing certain health and medical information. It may not contain the complete medical history for the patient and should be independently verified. The represented time in the document is Eastern Time PROVIDER ROUNDING NOTE BASIC Patient:?DEVI?ALISHA,?1940,?82y,?M Dialysis?Location:[facility] [place] Attending?Implementation Manager:?Ethan Service?Date:?04/29/2022 Service?Provider:?Phoebe?Daniel,?DIRECTOR OF EMPLOYEE DEVELOPMENT I?met?face?to?face?with?the?patient?today. 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 HOME?MEDICATIONS Comments:?add?flomax?for?bph/?voiding?issues?w?prostate cancer. DIALYSIS?PRESCRIPTION ??IHD?3x?Week?Start?date:?04/05/22 ??Dialyzer:?Optiflux?250NRe ??BFR:?450 ??DFR:?Autoflow?2 ??Potassium:?2.0 ??Sodium:?138 ??EDW:?122.5 ??Duration:?4:30 ??Calcium:?2.5 ??Bicarb:?32 ??Rx?updated?on:?04/05/2022 TREATMENT?ASSESSMENT Blood?pressure?controlled.?No?changes?indicated.? BP?Sit?Pre ??04/26/2022:?105/73 ??04/24/2022:?103/65 ??04/22/2022:?102/58 BP?Sit?Post ??04/26/2022:?110/68 ??04/24/2022:?110/63 ??04/22/2022:?126/87 Tx?Duration ??04/26/2022:?4:30 ??04/24/2022:?4:36 ??04/22/2022:?4:35 Missed?Treatments 0?-?last?30?days 1?-?last?60?days 03/06?-?recent FLUID?ASSESSMENT Comments:?stable Fluid?status?acceptable.?Interdialytic?weight?gain?acceptable.?No ?changes?indicated.? EDW?(kg) ??04/26/2022:?122.5 ??04/24/2022:?122.5 ??04/22/2022:?122.5 Weight?Pre?(kg) ??04/26/2022:?125.0 ??04/24/2022:?126.2 ??04/22/2022:?126.2 Weight?Post?(kg) ??04/26/2022:?122.3 ??04/24/2022:?122.2 ??04/22/2022:?122.2 PWV?(kg) ??04/26/2022:?-0.2 ??04/24/2022:?-0.3 ??04/22/2022:?-0.3 UF?Rate?(mL/kg/hr) ??04/26/2022:?4.9 ??04/24/2022:?7.1 ??04/22/2022:?7.1 ADEQUACY?ASSESSMENT Adequacy?target?met.?Prescription?compliance?acceptable.?No?changes?indicated.? spKt/V,?URR ??04/10/2022:?1.39,?69.0 ??04/03/2022:?1.13,?61.0 ??03/18/2022:?1.32,?67.0 ACCESS?ASSESSMENT ??Access?Type:?CVCatheter ??Access?SubType:?Tunneled ??Access?Status:?Active?(In?Use)?-?03/29/2022 ??Access?Location:?Chest ??Placed:?--/--/---- Comments:?Cardiac?clearance?received,?orders?sent:?scheduled?for& #160;AVG?placement?on?May?4 Vascular?access?reviewed.?Current?access?is?temporary?and?re ferral?has?been?made?for?fistula/graft?placement. ANEMIA?ASSESSMENT Anemia?reviewed.?Anemia?targets?met.? HGB,?TSAT ??04/24/2022:?10.7,?- ??04/17/2022:?10.2,?- ??04/10/2022:?11.2,?24.0 ?? Ferritin ??04/10/2022:?480.0 ??03/13/2022:?808.0 ??02/13/2022:?664.0 Epoetin?Herminio?(Epogen),?IVP?(units) ??04/26/2022:?7200 ??04/24/2022:?7200 ??04/22/2022:?7200 Iron?Sucrose?(Venofer)?(mg) ??02/22/2022:?100 ??02/20/2022:?100 ??02/18/2022:?100 BMM?ASSESSMENT Bone?and?mineral?metabolism?parameters?reviewed.?Calcium?controll ed.?Phosphorus?controlled.?PTH?within?target.? Phosphorus,?Calcium ??04/10/2022:?4.7,?8.2 ??03/13/2022:?5.2,?8.1 ??02/13/2022:?5.0,?8.1 ?? PTH,?Intact ??04/10/2022:?334.0 ??01/16/2022:?366.0 ??10/17/2021:?286.0 Vitamin?D?(Calcitriol)?Oral?(mcg) ??04/26/2022:?0.75 ??04/24/2022:?0.75 ??04/22/2022:?0.75 NUTRITION?ASSESSMENT Nutrition?reviewed.?Potassium?controlled.? Albumin,?Potassium ??04/10/2022:?3.1,?5.7 ??03/13/2022:?3.5,?5.3 ??02/13/2022:?3.3,?5.2 ?? eNPCR ??04/10/2022:?0.55 ??04/03/2022:?0.53 ??03/18/2022:?0.62 PHYSICAL?EXAM Exam?Not?Performed. DIAGNOSIS Chief?Complaint:?N18.6?End?stage?renal?disease Patient?data?updated?04/29/2022?at?8:49?AM Signed?By:?Daniel,?Phoebe,?DIRECTOR OF EMPLOYEE DEVELOPMENT??on?04/29/2022?8:51:28 AM END OF DOCUMENT
[2022-09-04 16:40] LABS: Troponin 5 6HR 184.4 ng/L (0-15)
[2022-09-04] MEDS: heparin 5,000 unit/mL INJ 1 mL 5000 UNIT SUBCUT (18:24)
[2022-09-05] VITALS (110 sets, daily range): BP systolic 76–109; BP diastolic 45–81; PULSE 93–153; RESP 0–23; O2SAT 90–97
--- NOTE | 2022-09-05 00:09 | PC.HD ---
Pt hypotensive and on Levophed gtt pre treatment, fluid removal hindered by ongoing hypotension in light of Levophed increasing to 18mcg/min. Dr uDbose in pre treatment, not expecting successful fluid removal.
[2022-09-05 04:27] LABS: Basophils # 0.1 10^3/uL (0.0-0.1); Basophils % 0.6 %; Eosinophils # 0.1 10^3/uL (0.0-0.8); Eosinophils % 0.6 %; Hematocrit 35.4 % (42.0-52.0); Hemoglobin 10.8 g/dL (11.7-16.6); Lymphocytes # 0.5 10^3/uL (0.8-4.8); Lymphocytes % 4.7 %; Mean Corpuscular HGB Conc 30.5 g/dL (30.0-36.0); Mean Corpuscular Hemoglobin 33.1 pg (28.0-34.0); Mean Corpuscular Volume 108.6 fl (80-94); Monocytes # 0.7 10^3/uL (0.2-0.9); Monocytes % 7.4 %; Neutrophils # 8.27 10^3/uL (1.8-7.7); Neutrophils % 86.2 %; Nucleated Red Blood Cells % 0 %; Platelet Count 122 10^3/cmm (130-400); Red Blood Count 3.26 10^6/uL (4.1-5.3); Red Cell Distribution Width 15.3 % (12.1-15.1); White Blood Count 9.6 10^3/uL (4.0-10.0)
[2022-09-05 04:57] LABS: Alanine Aminotransferase 16 U/L (0-41); Alkaline Phosphatase 100 U/L (40-130); Blood Urea Nitrogen 31 mg/dL (8-23); Calcium 8.2 mg/dL (8.5-10.5); Carbon Dioxide 23 mmol/L (22-29); Chloride 94 mmol/L (98-107); Globulin 3.3 g/dL (1.3-4.6); Glucose 146 mg/dL (65-115); Magnesium 1.7 mg/dL (1.7-2.3); Osmolality Calculated 287 mOsm/kg (285-295); Sodium 134 mmol/L (136-145); Total Bilirubin 1.4 mg/dL (0.15-1.2); Total Protein 6.3 g/dL (6.6-8.7)
[2022-09-05] MEDS: heparin 5,000 unit/mL INJ 1 mL 5000 UNIT SUBCUT ×2 (05:18→18:03)
[2022-09-05 05:23] LABS: Creatinine Clr Calc Pharmacy 18.7704
[2022-09-05 05:24] LABS: Aspartate Amino Transferase 32 U/L (0-40)
[2022-09-05 05:38] LABS: Slide Review Slide Review Perform
--- NOTE | 2022-09-05 06:35 | PC.NURSE ---
Patient has slept throughout most of the shift. Awakens easily to touch or verbal commands. Remains AOx4 for this nurse since finish of Dialysis. Levo still required to maintain MAP >65.
[2022-09-05] MEDS: pantoprazole 40 mg SDV IVP (08:38)
[2022-09-05] MEDS: allopurinol 100 mg Tablet PO (08:38)
--- NOTE | 2022-09-05 10:02 | P.PN_ITS ---
Subjective Subjective: Marco Antonio awakens easily this morning. He reports he still has leg pain. Still on norepinephrine. Nephrology was able to ultrafiltrate him yesterday. Medications: Reviewed: Yes Vitals/I&O/Wt Last Vital Signs Temp 98.8 F 09/04/22 23:56 Pulse 110 H 09/05/22 09:10 Resp 14 09/05/22 08:30 BP 90/52 09/05/22 08:30 Pulse Ox 95 09/05/22 09:10 O2 Del Method Nasal Cannula 09/05/22 09:10 O2 Flow Rate 3 09/05/22 09:10 09/04/22 09/05/22 09/05/22 22:59 06:59 14:59 Intake Total 538.400 / 2690.000 1048.920 / 3738.920 Output Total 0 / 0 263 / 263 Balance 538.400 / 2690.000 785.920 / 3475.920 Weight last 48 hrs Weight 129.727 kg Weight 127.6 kg Weight 126 kg Physical Exam Narrative: Exam is white male, more alert and can answer a few questions. Neck is supple no lymphadenopathy thyromegaly Cardiovascular tachycardic, no murmur Lungs clear but with diminished breath sounds bilaterally Abdomen obese, soft Extremities show 3+ edema bilaterally. Erythema is noted of the left leg with increased warmth. This tracks from the ankle all the way to mid thigh. Data 09/05/22 03:48 09/05/22 03:48 Micro: Microbiology 09/04/22 10:12 Blood Culture - Preliminary Blood SPECIMEN COLLECTED 09/04/22 10:03 Blood Culture - Preliminary Blood SPECIMEN COLLECTED A&P Assessment and plan (1) Sepsis: Patient presents with lethargy, hypotension, cellulitis and likely pneumonia. Lactic acid is high. With his underlying malignancy and end-stage renal disease, his immune response will not be adequate. White blood cell count is not elevated. There is evidence of endorgan dysfunction with acute encephalopathy. Not a candidate for any more fluid in the emergency department has given him. He is significantly fluid overloaded, at dialysis patient, who has high risk for respiratory failure with additional fluid. Continue IV antibiotics vancomycin and Zosyn Wean norepinephrine as tolerated CBC, CMP tomorrow (2) Hypotension: Norepinephrine has been initiated. 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 Currently receiving monthly Sandostatin. (7) Acute encephalopathy: Secondary to sepsis. Appears improved today Plan History of paroxysmal atrial fibrillation. Currently in atrial fibrillation, w ith rate around 110. Continue to treat sepsis. When improved, restart his low- dose metoprolol. Current rate does not appear to be decompensating patient, and may be driven from sepsis or norepinephrine. Multiple other medical problems as outlined in past medical history Designated allow natural at his nursing facility records He is allow natural on his dialysis records. Family concurs Change Eliquis to heparin for DVT prophylaxis while in the hospital ST consult. May be able to start a little bit of clear liquids today. Attestations Medical Necessity Statement*: Needs continued ICU stay secondary to sepsis requiring norepinephrine, evidence of fluid overload with difficulty with dialysis secondary to hypotension Critical Care Time: The high probability of a clinically significant, sudden or life threatening deterioration of the patient's [renal, infectious disease, neurologic] system(s) required my full and direct attention, intervention and personal management. The critical care time is as shown. This time is in addition to time spent performing any reported procedures but includes the following: [x] Data and vital sign review and interpretation [x] Patient assessment, examination and intervention [x] Documentation [x] Medication orders and management Critical Care Time (min): 38 Coding Level of Care Code Critical Care >/= 30 minutes Critical care time (in minutes): 38 The high probability of a clinically significant, sudden or life threatening deterioration, as referenced in this documentation, required my full and direct attention, intervention and personal management. The critical care time shown is in addition to time spent performing any reported separately billable procedures and includes the following: [x] Data and vital sign review and interpretation [x ] Patient assessment, examination and intervention [x] Medication orders and management [x] Patient/Family updates as able [x] Care Coordination and Documentation. Diagnoses Sepsis A41.9 Hypotension I95.9 Pneumonia J18.9 Cellulitis L03.90 ESRD (end stage renal disease) N18.6 Neuroendocrine tumor D3A.8 Acute encephalopathy G93.40
[2022-09-05] MEDS: piperacillin-tazobactam 3.375 GM in sodium chloride 0.9% (plus) 50 ML IV ×2 (10:18→23:27)
--- NOTE | 2022-09-05 14:16 | CTR_ITS ---
PROCEDURE INFORMATION: Exam: CT Abdomen And Pelvis Without Contrast Exam date and time: 09/05/2022 7:46 PM Age: 82 years old Clinical indication: Abdominal pain; Additional info: Gram neg bacteremia TECHNIQUE: Imaging protocol: Computed tomography of the abdomen and pelvis without contrast. Radiation optimization: All CT scans at this facility use at least one of these dose optimization techniques: automated exposure control; mA and/or kV adjustment per patient size (includes targeted exams where dose is matched to clinical indication); or iterative reconstruction. REPORTING DATA: Count of CT and Cardiac NM exams in prior 12 months: This patient has received 3 known CTs and 0 known cardiac nuclear medicine studies in the 12 months prior to the current study. COMPARISON: CT abdomen pelvis wo con [id number] 03/26/2022 3:52 PM RADIATION DOSE METRICS: Total DLP (mGy-cm): 1300.84 FINDINGS: Pleural spaces: Bilateral posterior basilar effusions with subjacent atelectasis and or infiltrate. Liver: Suggestion of fatty liver without focal abnormality. Gallbladder and bile ducts: Mild gallbladder hydrops with probable component of dependent sludge. This is similar in appearance to prior exam. No significant biliary ductal dilatation. Pancreas: Large solid mass with lobular borders is seen in the head of the pancreas as noted with previous exam. This again measures approximally 9.8 x 6.8 cm on axial exam. Some chronic appearing calcifications near this region. Body and tail of the pancreas demonstrate mild atrophy, as noted with prior exam. No significant pancreatic ductal dilatation. Spleen: Normal. No splenomegaly. Adrenal glands: Normal. No mass. Kidneys and ureters: Kidneys demonstrate bilateral hypodense renal cysts along with mild atrophy and chronic perinephric stranding with prior exam. Stomach and bowel: Residual barium contrast is seen within the colon. No bowel obstruction. No CT findings to indicate diverticulitis or other focal inflammatory change. Appendix: The appendix is not seen, without findings to indicate appendicitis. Intraperitoneal space: Mild free fluid or ascites with mild increase from prior exam. No free air. Mild mesenteric edema as noted with prior exam. Vasculature: Diffuse atherosclerotic vascular disease without aneurysmal dilatation of the abdominal aorta. Lymph nodes: Unremarkable. No enlarged lymph nodes. Urinary bladder: Mild posterior urinary bladder wall thickening and urinary bladder is otherwise unremarkable. Correlate clinically for cystitis. Reproductive: Chronic appearing calcification in the region of the prostate. Bones/joints: Chronic degenerative changes of the lumbar spine with prior exam. Soft tissues: Soft tissue anasarca as noted with prior exam. Other findings: Streak artifact is seen from patient's upper extremities which are by his sides. CT/CT abdomen pelvis wo con [id number] IMPRESSION: 1. Large solid pancreatic head mass as seen with prior exam. 2. Mildly hydropic gallbladder with suspected component of sludge. 3. Chronic renal changes bilateral cysts with mild atrophy and chronic perinephric stranding. 4. Mild ascites and anasarca. 5. Mild posterior urinary bladder wall thickening and correlate clinically for cystitis. COMMENTS: Consistent with the [employer]'s Incidental Findings Committee white paper (J Am Yi Radiol 2018): Any incidental renal lesion less than 1 cm or classified as too small to characterize, or any incidental cystic renal lesion characterized as simple-appearing, is likely benign. No follow-up imaging is recommended for these lesions per consensus recommendations based on imaging criteria.
[2022-09-05] MEDS: gabapentin 100 mg Capsule PO (20:28)
[2022-09-05] MEDS: duloxetine 20 mg Capsule PO (20:28)
[2022-09-06] VITALS (58 sets, daily range): BP systolic 63–126; BP diastolic 45–84; PULSE 102–135; RESP 10–34; TEMP 37.9–39.3; O2SAT 82–97
[2022-09-06] MEDS: norepinephrine 8 MG in dextrose 5 % 500 ML 30.48 MG IV (00:03)
[2022-09-06 03:57] LABS: Basophils % 0.4 %; Eosinophils # 0.1 10^3/uL (0.0-0.8); Eosinophils % 0.7 %; Hematocrit 34.3 % (42.0-52.0); Hemoglobin 10.5 g/dL (11.7-16.6); Lymphocytes # 0.2 10^3/uL (0.8-4.8); Lymphocytes % 2.6 %; Mean Corpuscular HGB Conc 30.6 g/dL (30.0-36.0); Mean Corpuscular Hemoglobin 33.5 pg (28.0-34.0); Mean Corpuscular Volume 109.6 fl (80-94); Mean Platelet Volume 11.3 fL (7.4-10.4); Monocytes # 0.6 10^3/uL (0.2-0.9); Monocytes % 6.8 %; Neutrophils # 7.39 10^3/uL (1.8-7.7); Neutrophils % 88.5 %; Nucleated Red Blood Cells % 0 %; Platelet Count 122 10^3/cmm (130-400); Red Blood Count 3.13 10^6/uL (4.1-5.3); Red Cell Distribution Width 15.3 % (12.1-15.1); White Blood Count 8.4 10^3/uL (4.0-10.0)
--- NOTE | 2022-09-06 04:11 | PC.NURSE ---
0400 Patient O2 dropped into the low-mid 80s. Upon assessment patient was extremely lethargic, absent lung sounds in the left side, and thick mucoid secretions in mouth. Patient was raised up, RT helped suction secretions and encourage cough, glucose checked, and oxy-mask applied turned up to 7. 02 increased into the mid 90s with oxi-mask. Patient was able to talk and attempted weak coughs.
[2022-09-06 04:13] LABS: Glucose Point of Care 127 mg/dL (70-110)
[2022-09-06 04:17] LABS: Alanine Aminotransferase 15 U/L (0-41); Albumin Level 2.6 g/dL (3.5-5.2); Alkaline Phosphatase 145 U/L (40-130); Aspartate Amino Transferase 21 U/L (0-40); Blood Urea Nitrogen 39 mg/dL (8-23); Calcium 8.2 mg/dL (8.5-10.5); Carbon Dioxide 24 mmol/L (22-29); Chloride 94 mmol/L (98-107); Globulin 3.3 g/dL (1.3-4.6); Glucose 133 mg/dL (65-115); Magnesium 1.8 mg/dL (1.7-2.3); Osmolality Calculated 287 mOsm/kg (285-295); Sodium 133 mmol/L (136-145); Total Bilirubin 1.3 mg/dL (0.15-1.2); Total Protein 5.9 g/dL (6.6-8.7)
[2022-09-06 04:18] LABS: Anion Gap 19.5 (5-19); Potassium 4.5 mmol/L (3.5-5.1); Vancomycin Random 11.7 ug/mL (20.0-40.0)
[2022-09-06] MEDS: heparin 5,000 unit/mL INJ 1 mL 5000 UNIT SUBCUT ×2 (04:18→18:01)
[2022-09-06] MEDS: allopurinol 100 mg Tablet PO (08:17)
[2022-09-06] MEDS: pantoprazole 40 mg SDV IVP (08:17)
--- NOTE | 2022-09-06 09:59 | PM.PN ---
Subjective Subjective: had low grade temp Medications: Reviewed: Yes Vitals/I&O/Wt Last Vital Signs Temp 100.3 F H 09/06/22 06:00 Pulse 118 H 09/06/22 08:00 Resp 20 H 09/06/22 08:00 BP 88/49 09/06/22 08:00 Pulse Ox 94 09/06/22 08:00 O2 Del Method Nasal Cannula 09/05/22 20:30 O2 Flow Rate 5 09/06/22 06:00 09/05/22 09/06/22 09/06/22 22:59 06:59 14:59 Intake Total 374.396 / 698.396 Balance 374.396 / 698.396 Weight last 48 hrs Weight 129.274 kg Weight 129.727 kg Weight 127.6 kg Physical Exam Narrative: no distress , on bipap + LE edema Data 09/06/22 03:34 09/06/22 03:34 Micro: Microbiology 09/05/22 14:44 Blood Culture - Preliminary Blood SPECIMEN COLLECTED 09/05/22 14:44 Blood Culture - Preliminary Blood SPECIMEN COLLECTED 09/04/22 18:30 MRSA Culture - Final Nose 09/04/22 10:03 Blood Culture - Preliminary Blood Gram Negative Rods 09/04/22 10:12 Blood Culture - Preliminary Blood NEGATIVE TO DATE A&P Assessment and plan (1) ESRD (end stage renal disease): Plan 1. End-stage renal disease: HD today and continue MWF schedule, HD today 2. Sepsis: Secondary to cellulitis, on pressors, antibiotics per primary team, pressor requirement increased while patient on dialysis. 3. Acute on chronic respiratory failure: Multifactorial, has pneumonia 4. History of neuroendocrine tumor 5. Chronic anemia Patient evaluated using audiovisual cart. Time spent 35 minutes Attestations Medical Necessity Statement*: per medicine Coding Level of Care Code Acute Code for [facility] Fwd Diagnoses ESRD (end stage renal disease) N18.6
--- NOTE | 2022-09-06 10:51 | PC.SLP ---
Patient has had a medical decline. Patient will be monitored and assessed when he is able to participate in his evaluation.
--- NOTE | 2022-09-06 11:56 | CT_ITS ---
WS: [id number] CT HEAD TECHNIQUE: Noncontrast CT of the head obtained from the skullbase to the vertex. CLINICAL INFORMATION: AMS COMPARISON: CT head November 10, 2020 DLP: 1187.[address] scans at [facility] use at least one of these dose optimization techniques: automated e xposure control; mA and/or kV adjustment per patient size (includes targeted exams where dose is matc hed to clinical indication); or iterative reconstruction. FINDINGS: No evidence of intracranial hemorrhage or mass effect. Ventricular system and basal cisterns are rincon nt. Moderate small vessel changes with moderate parenchymal volume loss. Advanced parenchymal volume loss the posterior fossa unchanged. No extra-axial fluid collections. No evidence of mass or mass eff ect. Intracranial vascular calcification. Chronic bilateral lacunar infarcts in the basal ganglia and LEFT thalamus. Inflammatory changes in the paranasal sinuses. Small retention cysts or polyps in the RIGHT maxillary sinus. Mastoid air cells well aerated. Benign vick cisterna magna. CT/CT head wo con* [id number] IMPRESSION: 1. No evidence of intracranial hemorrhage or mass effect. 2. Moderate small vessel changes. Moderate parenchymal volume loss. 3. Chronic lacunar infarcts in the RIGHT greater than LEFT basal ganglia uncha nged compared to previous. Chronic lacunar infarct RIGHT caudate unchanged. 4. Intracranial vascular calcification. 5. Moderate small vessel changes with moderate parenchymal volume loss. Advanc ed parenchymal volume loss involving the posterior fossa unchanged.
[2022-09-06] MEDS: meropenem 1,000 MG in sodium chloride 0.9% (plus) 50 ML 100 MG IV (12:25)
[2022-09-06] MEDS: norepinephrine 8 MG in dextrose 5 % 500 ML 45.72 MG IV (14:42)
--- NOTE | 2022-09-06 15:33 | P.PN_ITS ---
Subjective Subjective: Fever with Tmax up to 102 Fahrenheit at the time of assessment. Patient is lethargic, does not open eyes to commands. Overnight it appears patient has been becoming increasingly lethargic. Yesterday he was able to open his eyes and respond to name, say a few short words, however since last night his mental status has continued to deteriorate. CT head was performed today which did not show any acute intracranial abnormalities. 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 He is planned to undergo dialysis today. Blood cultures from the are with gram-negative rods still pending further identification. Medications: Reviewed: Yes Vitals/I&O/Wt Last Vital Signs Temp 100.3 F H 09/06/22 06:00 Pulse 129 H 09/06/22 14:00 Resp 28 H 09/06/22 14:00 BP 111/64 09/06/22 14:00 Pulse Ox 95 09/06/22 14:00 O2 Del Method Oxymask 09/06/22 10:48 O2 Flow Rate 3 09/06/22 10:48 09/06/22 09/06/22 09/06/22 06:59 14:59 22:59 Intake Total 374.396 / 698.396 387.604 / 387.604 Balance 374.396 / 698.396 387.604 / 387.604 Weight last 48 hrs Weight 129.274 kg Weight 129.727 kg Weight 127.6 kg Physical Exam Narrative: General: Lethargic, does not open eyes to name or painful stimuli. HEENT: PERRLA, pupils bilaterally equal and reactive, pallors not present Chest: Bilateral coarse crackles to auscultation bilaterally CVS: S1-S2 regular, no murmurs, no tachycardia, no gallops, no rubs Abdomen: Soft, nontender, no organomegaly, bowel sounds present Neuro: Lethargic, nonverbal, does not respond appropriately. Data 09/06/22 03:34 09/06/22 03:34 Micro: Microbiology 09/05/22 14:44 Blood Culture - Preliminary Blood NEGATIVE TO DATE 09/05/22 14:44 Blood Culture - Preliminary Blood NEGATIVE TO DATE 09/04/22 18:30 MRSA Culture - Final Nose 09/04/22 10:03 Blood Culture - Preliminary Blood Gram Negative Rods A&P Assessment and plan (1) Sepsis: Patient presents with lethargy, hypotension, cellulitis and likely pneumonia. Lactic acid is high. With his underlying malignancy and end-stage renal disease, his immune response will not be adequate. White blood cell count is not elevated. There is evidence of endorgan dysfunction with acute encephalopathy. Continues to be persistently febrile up to 102 Fahrenheit in spite of being on Zosyn for about 24 hours now. Blood culture is showing gram-negative rods. Change piperacillin/tazobactam to meropenem renally dosed to 1 g IV every 24 hours due to concern of potentially resistant isolate. Continuing norepinephrine for now, wean down as tolerated (2) Hypotension: Norepinephrine has been initiated. Currently at 12 mics. May need some more with scheduled dialysis today. (3) Pneumonia: Currently on on meropenem and vancomycin Await blood culture results with identification and susceptibility of gram- negative saran Repeat blood cultures taken on the , currently pending to assess for clearance. Source may be related to pneumonia versus lower extremity cellulitis. 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 Currently receiving monthly Sandostatin. (7) Acute encephalopathy: Secondary to sepsis. Continues to be persistently obtunded Plan History of paroxysmal atrial fibrillation. Currently in atrial fibrillation, with rate around 110. Continue to treat sepsis. Once off we will plan to restart metoprolol. In the interim start amiodarone as heart rate is up to 130 to 140 bpm. Current rate does not appear to be decompensating patient, and may be driven from sepsis or norepinephrine. Multiple other medical problems as outlined in past medical history Designated allow natural at his nursing facility records He is allow natural on his dialysis records. Change Eliquis to heparin for DVT prophylaxis while in the hospital Continue NPO status Attestations Medical Necessity Statement*: > Dialysis today, continued need for pressor, change antibiotics, awaiting blood cultures for clearance, awaiting identification of gram-negative saran from September 04. Persisting encephalopathy Coding Level of Care Code Critical Care >/= 30 minutes Diagnoses Sepsis A41.9 Hypotension I95.9 Pneumonia J18.9 Cellulitis L03.90 ESRD (end stage renal disease) N18.6 Neuroendocrine tumor D3A.8 Acute encephalopathy G93.40
[2022-09-06 17:51] LABS: Glucose Point of Care 103 mg/dL (70-110)
[2022-09-06] MEDS: vancomycin 750 MG in sodium chloride 0.9% 250 ML 250 MG IV (17:59)
[2022-09-06] MEDS: acetaminophen 1,000 MG/100 ML PIGGYBACK 400 MG IV (23:34)
[2022-09-06 23:53] LABS: Glucose Point of Care 140 mg/dL (70-110)
[2022-09-07] VITALS (99 sets, daily range): BP systolic 72–130; BP diastolic 39–88; PULSE 95–130; RESP 13–32; TEMP 37.9–39.8; O2SAT 86–99
[2022-09-07] MEDS: norepinephrine 8 MG in dextrose 5 % 500 ML 53.34 MG IV (01:31)
[2022-09-07 03:09] LABS: Basophils # 0.1 10^3/uL (0.0-0.1); Basophils % 0.5 %; Eosinophils % 0.2 %; Hematocrit 36.2 % (42.0-52.0); Hemoglobin 11.3 g/dL (11.7-16.6); Lymphocytes # 0.3 10^3/uL (0.8-4.8); Lymphocytes % 2.3 %; Mean Corpuscular HGB Conc 31.2 g/dL (30.0-36.0); Mean Corpuscular Volume 105.8 fl (80-94); Mean Platelet Volume 11.7 fL (7.4-10.4); Monocytes # 1.3 10^3/uL (0.2-0.9); Monocytes % 9.6 %; Neutrophils # 11.37 10^3/uL (1.8-7.7); Neutrophils % 86.9 %; Nucleated Red Blood Cells % 0.2 %; Platelet Count 132 10^3/cmm (130-400); Red Blood Count 3.42 10^6/uL (4.1-5.3); Red Cell Distribution Width 15.4 % (12.1-15.1); White Blood Count 13.1 10^3/uL (4.0-10.0)
[2022-09-07 04:04] LABS: Alanine Aminotransferase 21 U/L (0-41); Albumin Level 2.7 g/dL (3.5-5.2); Alkaline Phosphatase 137 U/L (40-130); Anion Gap 19.2 (5-19); Aspartate Amino Transferase 32 U/L (0-40); Blood Urea Nitrogen 27 mg/dL (8-23); Calcium 8.4 mg/dL (8.5-10.5); Carbon Dioxide 24 mmol/L (22-29); Chloride 91 mmol/L (98-107); Globulin 3.4 g/dL (1.3-4.6); Glucose 145 mg/dL (65-115); Magnesium 1.7 mg/dL (1.7-2.3); Osmolality Calculated 278 mOsm/kg (285-295); Phosphorus 3.1 mg/dL (2.5-4.5); Potassium 4.2 mmol/L (3.5-5.1); Sodium 130 mmol/L (136-145); Total Bilirubin 1.6 mg/dL (0.15-1.2); Total Protein 6.1 g/dL (6.6-8.7)
[2022-09-07] MEDS: heparin 5,000 unit/mL INJ 1 mL 5000 UNIT SUBCUT ×2 (04:46→18:03)
[2022-09-07 05:22] LABS: Urine Appearance Cloudy (CLEAR); Urine Color Red (Yellow); pH Urine 6.5 (5-7)
[2022-09-07 05:23] LABS: Add Urine Microscopic? YES; Bilirubin Urine Neg (Negative); Blood Urine 3+ (Negative); Glucose Urine UA 1+ (Normal); Ketones Urine 1+ (Negative); Leukocyte Esterase Urine Trace (Negative); Nitrate Urine Negative (Negative); Protein Urine 3+ (Negative); Urobilinogen Urine Norm (Negative)
[2022-09-07 05:25] LABS: RBC Urine TOO NUMEROUS TO CNT /hpf (0-2)
[2022-09-07 05:26] LABS: Bacteria Urine TRACE /hpf; Squamous Epithelial Cell Urine 0-4 /hpf (0-5); WBC Urine 0-4 /hpf (0-5)
[2022-09-07 05:27] LABS: Add Urine Culture? Yes
[2022-09-07] MEDS: pantoprazole 40 mg SDV IVP (08:17)
--- NOTE | 2022-09-07 10:52 | PC.SOCIAL ---
Imm update Imm updated with patient's daughter Jennifer. Copy of page 2 explained and left at bedside. Jennifer verbalized understanding. Copy in chart initialed, dated and timed.
--- NOTE | 2022-09-07 11:24 | PM.PN ---
Subjective Subjective: Patient O2 requirement has gone up to 10 L today, status post HD yesterday with 2.5 L ultrafiltration Medications: Reviewed: Yes Vitals/I&O/Wt Last Vital Signs Temp 102.6 F H 09/07/22 10:15 Pulse 98 09/07/22 10:21 Resp 19 H 09/07/22 10:15 BP 96/60 09/07/22 10:15 Pulse Ox 97 09/07/22 10:21 O2 Del Method Oxymask 09/07/22 10:21 O2 Flow Rate 12 09/07/22 10:21 09/06/22 09/07/22 09/07/22 22:59 06:59 14:59 Intake Total 1167.604 / 1555.208 416.484 / 1971.692 Output Total 2800 / 2800 150 / 2950 Balance -1632.396 / -1244.792 266.484 / -978.308 Weight last 48 hrs Weight 127.051 kg Weight 128.2 kg Weight 129.274 kg Physical Exam Narrative: On 10 L oxygen by Oxymizer S1-S2 regular rate and rhythm per report Crackles per report no distress , + LE edema Data 09/07/22 02:40 09/07/22 02:40 Micro: Microbiology 09/05/22 14:44 Blood Culture - Preliminary Blood NEGATIVE TO DATE 09/05/22 14:44 Blood Culture - Preliminary Blood NEGATIVE TO DATE A&P Assessment and plan (1) ESRD (end stage renal disease): Plan 1. End-stage renal disease: On MWF schedule, will do extra dialysis today due to increased O2 requirements, on pressors 2. Sepsis: Secondary to cellulitis, and pneumonia- on pressors, antibiotics per primary team, pressor requirement increased while patient on dialysis. 3. Acute on chronic respiratory failure: Multifactorial, has pneumonia 4. History of neuroendocrine tumor 5. Chronic anemia Patient evaluated using audiovisual cart. Time spent 35 minutes Attestations Medical Necessity Statement*: Per medicine Coding Level of Care Code Acute Code for [facility] Fwd Diagnoses ESRD (end stage renal disease) N18.6
[2022-09-07] MEDS: norepinephrine 8 MG in dextrose 5 % 500 ML 45.72 MG IV (13:03)
[2022-09-07] MEDS: meropenem 1,000 MG in sodium chloride 0.9% (plus) 50 ML 100 MG IV (13:03)
--- NOTE | 2022-09-07 15:07 | PM.PN ---
Subjective Subjective: Continues to be febrile to 102.7 Fahrenheit. Currently Levophed requirements are stable at 12 vita. WBC count up to 13,000. LFTs stable. UA with trace leukocyte Estrace, 0-4 WBCs. Gram-negative saran from blood culture identified as Serratia. Thus far blood culture from September 05 remains negative to date. Medications: Reviewed: Yes Vitals/I&O/Wt Last Vital Signs Temp 102.4 F H 09/07/22 14:15 Pulse 107 H 09/07/22 14:15 Resp 18 09/07/22 14:15 BP 91/55 09/07/22 14:15 Pulse Ox 95 09/07/22 14:15 O2 Del Method oxymask 09/07/22 14:15 O2 Flow Rate 7 09/07/22 14:15 09/07/22 09/07/22 09/07/22 06:59 14:59 22:59 Intake Total 416.484 / 1971.692 400.647 / 400.647 Output Total 150 / 2950 Balance 266.484 / -978.308 400.647 / 400.647 Weight last 48 hrs Weight 127.051 kg Weight 128.2 kg Weight 129.274 kg Physical Exam Narrative: General: Lethargic, does not open eyes to name or painful stimuli. HEENT: PERRLA, pupils bilaterally equal and reactive, pallors not present Chest: Bilateral coarse crackles to auscultation bilaterally CVS: S1-S2 regular, no murmurs, no tachycardia, no gallops, no rubs Abdomen: Soft, nontender, no organomegaly, bowel sounds present Neuro: Lethargic, nonverbal, does not respond appropriately. Data 09/07/22 02:40 09/07/22 02:40 Micro: Microbiology 09/04/22 10:03 Blood Culture - Preliminary Blood Serratia marcescens 09/05/22 14:44 Blood Culture - Preliminary Blood NEGATIVE TO DATE 09/05/22 14:44 Blood Culture - Preliminary Blood NEGATIVE TO DATE A&P Assessment and plan (1) Sepsis: Patient presents with lethargy, hypotension, cellulitis and likely pneumonia. There is evidence of endorgan dysfunction with acute encephalopathy. Blood culture is showing gram-negative rods now identified as Serratia mass rinses. Piperacillin/tazobactam was changed to meropenem on September 06, 2022. Isolate now identified to be intermediate to Zosyn which she was receiving previously. CT abdomen pelvis with chronic renal changes bilaterally, chronic perinephric stranding. Source of bacteremia may be related to cellulitis vs pneumonia Continuing norepinephrine for now, wean down as tolerated (2) Hypotension: Norepinephrine has been initiated. Currently at 12 mics. 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 Currently receiving monthly Sandostatin. (7) Acute encephalopathy: Secondary to sepsis. Continues to be persistently obtunded Plan History of paroxysmal atrial fibrillation. Currently in atrial fibrillation, amiodarone added for rate control Multiple other medical problems as outlined in past medical history Designated allow natural at his nursing facility records He is allow natural on his dialysis records. Change Eliquis to heparin for DVT prophylaxis while in the hospital Continue NPO status Daughter updated Attestations Medical Necessity Statement*: continued need for iv abx, pressor support, HD , persisting encephalopathy Coding Level of Care Code Critical Care >/= 30 minutes Diagnoses Sepsis A41.9 Hypotension I95.9 Pneumonia J18.9 Cellulitis L03.90 ESRD (end stage renal disease) N18.6 Neuroendocrine tumor D3A.8 Acute encephalopathy G93.40
[2022-09-07] MEDS: albumin 12.5 GM/50 ML VIAL IV ×2 (15:27→15:49)
--- NOTE | 2022-09-07 15:41 | PC.HD ---
Upon arrival to patient's room, BP was noted to be 79/57. Primary RN increased Levophed and albumin was initiated with dialysis start. Fistula bruit diminished; difficulty accessing arterial; required two attempts.
--- NOTE | 2022-09-07 20:34 | XRR_ITS ---
PROCEDURE INFORMATION: Exam: XR Chest Exam date and time: 09/07/2022 8:37 PM Age: 82 years old Clinical indication: Device placement; Picc; Additional info: Picc line placement TECHNIQUE: Imaging protocol: Radiologic exam of the chest. Views: 1 view. COMPARISON: CR XR chest 1V portable [id number] 09/04/2022 8:54 AM FINDINGS: Tubes, catheters and devices: Interval placement of a left upper extremity PICC with the tip at the left brachiocephalic vein. Lungs: Interval development of mild interstitial pulmonary edema in the right lung. Pleural spaces: Interval development of complete opacification of the left hemithorax, which may be due to a combination of left atelectasis/pneumonia/pleural effusion. Interval development of a small right pleural effusion. No pneumothorax. Heart/Mediastinum: The cardiac silhouette and mediastinal contours are unremarkable. Vasculature: Vascular calcifications in the aorta. Bones/joints: Unremarkable for age. XR/XR chest 1V portable [id number] IMPRESSION: 1. Interval development of complete opacification of the left hemithorax, which may be due to a combination of left atelectasis/pneumonia/pleural effusion. Recommend followup chest imaging to insure resolution of these findings. 2. Interval placement of a left upper extremity PICC with the tip at the left brachiocephalic vein. 3. Interval development of mild interstitial pulmonary edema in the right lung. 4. Interval development of a small right pleural effusion. 5. Incidental/nonacute findings are listed in the report.
--- NOTE | 2022-09-07 21:46 | XRR_ITS ---
PROCEDURE INFORMATION: Exam: XR Chest Exam date and time: 09/07/2022 9:48 PM Age: 82 years old Clinical indication: Device placement; Picc; Additional info: Picc line placement TECHNIQUE: Imaging protocol: Radiologic exam of the chest. Views: 1 view. COMPARISON: CR (CHEST, ) 09/07/2022 8:37 PM FINDINGS: Tubes, catheters and devices: The left PICC has been advanced, the tip is now at the cavoatrial junction. Lungs: Focal partial clearing of the left upper lobe, the remainder of the left hemithorax is again completely opacified. This may be due to a combination of atelectasis/pneumonia/pleural effusion. Stable mild pulmonary edema in the right lung. Pleural spaces: Stable small right pleural effusion. Heart/Mediastinum: The cardiac silhouette cannot be evaluated due to opacification in the left hemithorax. Vasculature: Vascular calcifications in the aorta. Bones/joints: Unremarkable for age. XR/XR chest 1V portable [id number] IMPRESSION: 1. The left PICC has been advanced, the tip is now at the cavoatrial junction. 2. Focal partial clearing of the left upper lobe, the remainder of the left hemithorax is again completely opacified. This may be due to a combination of atelectasis/pneumonia/pleural effusion. Recommend followup chest imaging to insure resolution of these findings. 3. Stable mild pulmonary edema in the right lung. 4. Stable small right pleural effusion.
--- NOTE | 2022-09-07 22:17 | PC.NURSE ---
Vascular Access / ASO - PICC placement Consulted by house charge for PICC placement. Patient is not oriented, consent via telephone by myself and staff engineer obtained from patient's daughter Jennifer Martínez. Assessed LUE via US and determined the left basilic vein to be a good target vessel due to it's size and lack of evidence of thrombus or stenosis. Using US guidance, MST, and sterile technique, the vein was accessed x 1 stick. Device advanced without resistance, aspirated and flushed easily. Chest XR obtained. Device secured and sterile dressing placed. Initial Chest XR showed PICC termination in the brachiocephalic. Dressing removed, site cleaned, patient was redraped in the usual fashion and overwire exchange of PICC catheter was performed using sterile technique. Chest XR again obtained and per radiologist now terminates at the CAJ. Device secured and sterile dressing with biopatch in place. Aspirated and flushed easily. Pt tolerated well. EBL throught both procedures < 20mL. Reported to primary RN.
[2022-09-07] MEDS: norepinephrine 8 MG in dextrose 5 % 500 ML 68.58 MG IV (22:45)
[2022-09-08] VITALS (21 sets, daily range): BP systolic 0–108; BP diastolic 0–75; PULSE 0–129; RESP 0–34; TEMP 39.3; O2SAT 87–100
[2022-09-08] MEDS: acetaminophen 1,000 MG/100 ML PIGGYBACK 400 MG IV (01:55)
[2022-09-08 02:51] LABS: ABG PCO2 50.7 mmHg (35-45); ABG PH Result 7.15 (7.35-7.45); Arterial Blood Gas Hematocrit 38.8 % (42-52); Base Excess ABG -11.5 mmol/L (-2.0-2.0); Blood Gas Allen Test Pos; Blood Gas Sample Site Radial, right; Blood Gas Sample Type Arterial; Carboxyhemoglobin 0.8 %THgb (0.4-20.1); HCO3 ABG 17.4 mmol/L (22-26); HGB O2 Sat 92.5 % (95-100); Ionized Calcium Level - ABG 1.2 mmol/L (1.1-1.4); Methemoglobin 1.4 % (0.4-1.5); Oxygen Device NRB; Oxygen Saturation ABG 94.6; PO2 ABG 88.9 mmHg (80.0-100.0); Potassium Level - ABG 4.6 mmol/L (3.5-5.0); Total Hemoglobin 12.7 g/dL (14-18)
[2022-09-08 03:01] LABS: Basophils # 0.1 10^3/uL (0.0-0.1); Basophils % 0.4 %; Hematocrit 36.8 % (42.0-52.0); Hemoglobin 11.6 g/dL (11.7-16.6); Lymphocytes # 0.3 10^3/uL (0.8-4.8); Lymphocytes % 2.3 %; Mean Corpuscular HGB Conc 31.5 g/dL (30.0-36.0); Mean Corpuscular Hemoglobin 33.3 pg (28.0-34.0); Mean Corpuscular Volume 105.7 fl (80-94); Mean Platelet Volume 13.5 fL (7.4-10.4); Monocytes # 0.9 10^3/uL (0.2-0.9); Neutrophils # 12.71 10^3/uL (1.8-7.7); Nucleated Red Blood Cells % 0.1 %; Platelet Count 167 10^3/cmm (130-400); Red Blood Count 3.48 10^6/uL (4.1-5.3); Red Cell Distribution Width 18.1 % (12.1-15.1); White Blood Count 14.1 10^3/uL (4.0-10.0)
[2022-09-08] MEDS: sodium bicarbonate 8.4% 1 mEq/mL 50mL Syr 50 MEQ IVP (03:03)
[2022-09-08] MEDS: EPINEPHrine 0.1 mg/mL SYR 10 mL 1 MG IVP (03:51)
[2022-09-08 04:04] LABS: Alanine Aminotransferase 30 U/L (0-41); Albumin Level 2.8 g/dL (3.5-5.2); Alkaline Phosphatase 143 U/L (40-130); Aspartate Amino Transferase 56 U/L (0-40); Blood Urea Nitrogen 27 mg/dL (8-23); Calcium 9.1 mg/dL (8.5-10.5); Carbon Dioxide 19 mmol/L (22-29); Chloride 90 mmol/L (98-107); Globulin 4.4 g/dL (1.3-4.6); Glucose 120 mg/dL (65-115); Osmolality Calculated 282 mOsm/kg (285-295); Sodium 133 mmol/L (136-145); Total Protein 7.2 g/dL (6.6-8.7)
[2022-09-08 04:05] LABS: Anion Gap 28.8 (5-19); Potassium 4.8 mmol/L (3.5-5.1)
--- NOTE | 2022-09-08 04:17 | PC.NURSE ---
0403 Reported TOD to [facility]. Spoke to real estate representative, Velma. Reference #[id number].
--- NOTE | 2022-09-08 05:40 | PC.NURSE ---
Addendum entered by Sheryl Hopper RN 09/08/22 06:33: 0435 Family arrived at bedside. body transfer form filled out. Jennifer took father's belongings home with her. Original Note: During shift change Patient's SPO2 decreased into 80's. patient placed on 15L nonrebreather. RT and MD notified. 1950 Jennifer (daughter) called for consent for PICC line placement. Verbal consent given to this RN and verified by PICC nurse Marco Antonio. Jennifer updated on patient O2 needs and levophed needs. 2011 MD notified of increased levophed and picc placement. 20:51 MD notified on chest xray for picc line placement. concerns for left lung. MD arrived on unit 22:50 MD have order to hold morning heparin dose. 23:55 MD notified of RN attempt to wean patient O2. patient did not tolerate. MD gave order to keep patient at 15L nonrebreather. 01:19 MD notified of increased temp of 103.1 0120 order given for 1G IV acetaminophen (see MAR) 02:24 MD notified BP is 67/55. increased levophed to 20 mcg/min. Concerns voiced about breathing. Decrease breath sounds on left side. 0230 ABG ordered. Jennifer (daughter) called and updated on father's condition and advised to come to hospital. MD arrived to unit. verbal order for vasopressin, increase levophed max to 30mcg/min 0233 levophed increased (see MAR) 0241 ABG results given to MD. 1 AMP bicarb ordered (see MAR). MD requests RN to notify when him when family arrives 0339 Vasopressin started (see MAR) 0347 notified HR decreased into the 50's, amiodarone turned off 0349 MD notified able to doppler pulse, but respiratory rate has decreased. MD arrived on unit. verbal order for 1mg EPI IVP. 0351 EPI given (see MAR) 0354 asystole on monitor. MD called TOD at 0354. 0354 mitigation supervisor notified on patient TOD SEE NOTE BY Geena hussein. 0435 Family arrived at bedside. body transfer form filled out. 0500 [facility] returned call. patient not candidate for saving sight or MTS donation. 0501 [facility] home notified.
--- NOTE | 2022-09-08 06:32 | PC.NURSE ---
0505 PICC line and Left AC PIV removed.
--- NOTE | 2022-09-08 06:45 | PC.NURSE ---
2770 [facility] staff picked up patient.
--- NOTE | 2022-09-08 17:58 | P.DES_ITS ---
Discharge Providers DDS Date of Admission: 09/04/22 13:38 Date Summary Completed: 09/08/22 Attending Provider at Admission: Rolly Dubose MD Attending Provider at Discharge: Ute Farley MD Primary Care Provider: Umer Benavidez MD DS Diagnoses Hospital Diagnoses (1) Sepsis: (2) Hypotension: (3) Pneumonia: (4) Cellulitis: (5) ESRD (end stage renal disease): (6) Neuroendocrine tumor: Permanent Problem Comments: Stage IV, low-grade, around the head of the pancreas/duodenum, with lymph node prominence, treated with sandostatin, follows with Dr Allen, not a surgical candidate (7) Acute encephalopathy: Reason for Visit Reason for Visit AMS Summary Summary Summary: ?82-year-old male usp patient with metastatic neuroendocrine tumor and end-stage renal disease presented with sepsis needing pressor support. Blood culture showed Serratia Marcescens possibley from cellulitis of his left lower extremity vs pneumonia. Hospital course complicated by A fib with RVR. He received treatment with iv antibiotics, however did not recover sufficiently from his acute illness and on 09/08 at 04:03 Additional Data Advance directives?: No Discharge Plan Discharge Patient Disposition: Condition: Stable Prescriptions: No Action Eliquis 2.5 mg tablet 2.5 mg PO BID@08,20 Hold Instructions: Resume on 12/28/21. cholestyramine (with sugar) 4 gram powder See Rx Instructions PO DAILY Rx Instructions: 4 gram in liquid by mouth daily@08 tamsulosin 0.4 mg capsule 0.4 mg PO BEDTIME@20 pantoprazole 40 mg Tablet,Delayed Release (Dr/Ec) 40 mg PO DAILY@06 ondansetron 4 mg tablet,disintegrating 4 mg PO Q8H PRN (Reason: nausea and vomiting) Qty: 10 0RF gabapentin 100 mg Capsule 100 mg PO BEDTIME@20 duloxetine 20 mg Capsule,Delayed Release(Dr/Ec) 20 mg PO BEDTIME@20 albuterol sulfate 90 mcg/actuation Hfa Aerosol Inhaler 1 puff inhalation QID PRN (Reason: Shortness Of Breath) cholecalciferol (vitamin D3) [Vitamin D3] 25 mcg (1,000 unit) Tablet 25 mcg PO DAILY@08 Zofran 8 mg Tablet See Rx Instructions .ROUTE .COMPLEX Rx Instructions: 16 MG ORALLY WITH IMMODIUM EACH DAY PRIOR TO DIALYSIS. hydrocortisone 1 % Cream 1 applic TOPICAL TID PRN (Reason: Rash) Claritin 10 mg Tablet 10 mg PO DAILY lanthanum 1,000 mg Powder In Packet 1,000 mg PO TID Rx Instructions: sprinkle powder on small amount applesauce/soft food; take immediately w a meal metoprolol tartrate 25 mg tablet 12.5 mg PO Q12H Rx Instructions: @08:00,20:00 isosorbide mononitrate 60 mg Tablet Extended Release 24 Hr 60 mg PO DAILY@08 bumetanide 1 mg Tablet 1 mg PO DAILY@08 loperamide 2 mg Capsule 4 mg PO TID PRN (Reason: Diarrhea) nitroglycerin [Nitrostat] 0.4 mg Tablet, Sublingual 0.4 mg SUBLINGUAL Q5M PRN (Reason: Chest Pain) Rx Instructions: do not exceed 3 doses per episode Emily-Vinicio 0.8 mg Tablet 1 tab PO DAILY@08 ipratropium bromide 21 mcg (0.03 %) [place],Non-Aerosol 2 spray INTRANASAL TID@08,16,20 Rx Instructions: administer into each nostril calcium acetate(phosphat bind) 667 mg capsule 2,001 mg PO TID@08,12,17 Prostat Liquid 30 ml PO BEDTIME@20 allopurinol 100 mg tablet 100 mg PO DAILY@08 acetaminophen-codeine 300-30 mg Tablet 1 - 2 tab PO Q6H PRN (Reason: Pain) camphor-menthol 0.2-3.5 % Gel 1 applic TOPICAL BID PRN (Reason: unknown) Dr Lan Gargle 30 ml PO BID PRN (Reason: unknown) Referrals: Umer Benavidez MD [Primary Care Provider] - Patient Instructions: Dialysis Diet (DC), Hyponatremia (ED), Benzodiazepine Use Disorder (ED), Dementia (ED), Non-diabetic Hypoglycemia (ED), Hypoglycemia in a Person with Diabetes (ED), Concussion (ED), Alcohol Intoxication (ED), Subarachnoid Hemorrhage (GEN), Altered Mental Status (ED), Hemodialysis (DC), Opioid Safety Probable Cause of Probable cause of : Cardiac arrest DS Attestations Time Spent in /Discharge Care*: greater than 30 min Quality - AMI: AMI present?: No Quality - Stroke: CVA present?: No Symptom Onset Unknown: No Quality - VTE: VTE present?: No Deep Vein Thrombosis/Pulmonary Embolism Present on Admission: No Coding Level of Care Code Acute Code for Chg Fwd Diagnoses Sepsis A41.9 Hypotension I95.9 Pneumonia J18.9 Cellulitis L03.90 ESRD (end stage renal disease) N18.6 Neuroendocrine tumor D3A.8 Acute encephalopathy G93.40
[2022-09-13 00:16] LABS: Bacillus cereus group Not Detected (NOT DETECT); Bacillus subtillis group Not Detected (NOT DETECT); Corynebacterium Detected (NOT DETECT); Cutibacterium acnes (P.acnes) Not Detected (NOT DETECT); Enterococcus Not Detected (NOT DETECT); Enterococcus faecalis Not Detected (NOT DETECT); Enterococcus faecium Not Detected (NOT DETECT); Lactobacillus species Not Detected (NOT DETECT); Listeria Not Detected (NOT DETECT); Listeria monocytogenes Not Detected (NOT DETECT); Micrococcus Not Detected (NOT DETECT); Pan Candida Not Detected (NOT DETECT); Pan Gram-Negative Not Detected (NOT DETECT); Staphylococcus epidermidis Not Detected (NOT DETECT); Staphylococcus lugdunensis Not Detected (NOT DETECT); Staphylococcus species Not Detected (NOT DETECT); Streptococcus agalactiae Not Detected (NOT DETECT); Streptococcus anginosus group Not Detected (NOT DETECT); Streptococcus pneumoniae Not Detected (NOT DETECT); Streptococcus pyogenes Not Detected (NOT DETECT); Streptococcus species Not Detected (NOT DETECT)
== END 2022-09-08 06:43 | disposition expired | DRG 871 ==
LOC: ER 10:06 → ICU 13:25
PROVIDERS: Hospitalist; Internal Medicine; Admitting Provider Internal Medicine; Emergency Provider Family Medicine; PCP Internal Medicine; Visit Provider Student in an Organized Health Care Education/Training Program
DX: A41.53 Sepsis due to Serratia (principal); G93.41 Metabolic encephalopathy; J18.9 Pneumonia, unspecified organism; N18.6 End stage renal disease; L03.116 Cellulitis of left lower limb; I13.2 Hypertensive heart and chronic kidney disease with heart failure and with stage 5 chronic kidney disease, or end stage renal disease; I50.42 Chronic combined systolic (congestive) and diastolic (congestive) heart failure; C7A.8 Other malignant neuroendocrine tumors; J44.0 Chronic obstructive pulmonary disease with (acute) lower respiratory infection; I95.9 Hypotension, unspecified; E11.22 Type 2 diabetes mellitus with diabetic chronic kidney disease; Z79.899 Other long term (current) drug therapy; I48.0 Paroxysmal atrial fibrillation; I46.9 Cardiac arrest, cause unspecified; Z86.73 Personal history of transient ischemic attack (TIA), and cerebral infarction without residual deficits; Z66 Do not resuscitate; Z90.79 Acquired absence of other genital organ(s); Z85.46 Personal history of malignant neoplasm of prostate; E11.51 Type 2 diabetes mellitus with diabetic peripheral angiopathy without gangrene; E66.01 Morbid (severe) obesity due to excess calories; K21.9 Gastro-esophageal reflux disease without esophagitis; E78.5 Hyperlipidemia, unspecified; I25.10 Atherosclerotic heart disease of native coronary artery without angina pectoris; Z95.5 Presence of coronary angioplasty implant and graft; D63.1 Anemia in chronic kidney disease; I35.0 Nonrheumatic aortic (valve) stenosis
CPT/HCPCS: 36415; 36416; 36573; 36592; 36600; 51702; 70450; 71045; 73502; 74176; 80051; 80053; 80202; 81001; 82330; 82805; 82962; 83605; 83735; 84100; 84484; 85025; 86705; 86706; 86709; 86803; 87040; 87077; 87086; 87150; 87186; 87205; 87340; 87641; 90935; 92523; 92610; 93005; 96365; 96366; 96367; 96372; 96375; 96376; 99291; 99292; C1751; C9113; J0131; J0171; J0282; J1644; J2185; J2270; J2543; J3370; J3490; J7030; J7050; J7060; P9047; Q3014